=== PATIENT | male | born 1965 | race Caucasian/White ===

== ENCOUNTER → 2021-01-16 13:06 | Outpatient (BNVA) | payer MEDICAID, SELFPAY | PROVIDERS: PCP Registered Nurse; Visit Provider Internal Medicine Cardiovascular Disease | DX: I25.10 Atherosclerotic heart disease of native coronary artery without angina pectoris (principal); R07.89 Other chest pain; R00.2 Palpitations | CPT/HCPCS: 93005; 99212 ==

== ENCOUNTER 2021-03-29 18:41 | Emergency (ER) | payer MEDICAID, SELFPAY ==
--- NOTE | ~2021-03-29 | XR_ITS ---
EXAMINATION: XR CHEST CLINICAL INFORMATION: Chest pain COMPARISON: Chest x-ray 04/21/2020 TECHNIQUE: Frontal view of the chest was obtained. 7:45 PM FINDINGS: No significant abnormality is noted involving the heart, lungs, mediastinum, bony thorax or soft tissues. XR/XR chest 1V IMPRESSION: Unremarkable examination.
--- NOTE | ~2021-03-29 | CT_ITS ---
EXAMINATION: CT ABDOMEN AND PELVIS WITHOUT CONTRAST CLINICAL INFORMATION: Left flank pain. Nausea and vomiting. COMPARISON: 07/15/2015 TECHNIQUE: Multidetector volumetric imaging was performed from the superior aspect of the liver through the pubic symphysis. Sagittal and coronal reformatted images were obtained on the technologist's workstation. This CT examination was performed using dose optimization techniques as appropriate, variously including the following: *Automated exposure control *Adjustment of mA and/or kV according to patient size (this includes techniques or standardized protocols for targeted exams where dose is matched to indication/reason for exam; i.e. extremities or head) *Use of iterative reconstruction technique DLP: 484 mGy-cm FINDINGS: LUNG BASES: Calcified granulomata are present at the lung bases which are otherwise clear. LIVER, GALLBLADDER, AND BILIARY TREE: The liver is normal in size, shape, and attenuation. No focal hepatic lesion or biliary ductal dilatation is present. The gallbladder is unremarkable with no evidence of radiopaque gallstones, gallbladder wall thickening, or obvious pericholecystic inflammatory changes. PANCREAS: Unremarkable. SPLEEN: Unremarkable. ADRENAL GLANDS: Unremarkable. KIDNEYS AND URETERS: The kidneys are normal in size, shape, and attenuation. No hydronephrosis or hydroureter. 0.3 cm right lower pole renal calculus is 9.5 cm from the posterior axillary line. 0.3 cm left lower pole renal calculus is 8.5 cm from the posterior axillary line. There is also a 0.2 cm left midpole calculus. BLADDER: Decompressed with no gross abnormality. GASTROINTESTINAL TRACT: The stomach is unremarkable. Normal caliber small bowel. There is no obstruction. Normal appendix. Scattered colonic diverticulosis without diverticulitis. No colonic wall thickening or inflammatory change. No free air or free fluid. ABDOMINAL WALL: Small fat-containing left inguinal hernia. LYMPH NODES: Normal. VASCULAR: Normal caliber aorta with mild atherosclerotic calcification. Retroaortic left renal vein. PELVIC VISCERA: Enlarged prostate measuring 5.3 cm transverse. OSSEOUS STRUCTURES: No acute or suspicious osseous abnormality. Transitional anatomy of the lumbosacral junction. Mild degenerative changes in the spine. CT/CT abdomen pelvis wo con IMPRESSION: No acute findings of the abdomen or pelvis. No hydronephrosis. Nonobstructing renal calculi are noted. No inflammatory changes.
--- NOTE | 2021-03-29 18:46 | ECG_ITS ---
Test Reason : CHEST PAIN Blood Pressure : / mmHG Vent. Rate : 075 BPM Atrial Rate : 075 BPM P-R Int : 138 ms QRS Dur : 084 ms QT Int : 414 ms P-R-T Axes : 036 025 027 degrees QTc Int : 462 ms Normal sinus rhythm with sinus arrhythmia Minimal voltage criteria for LVH, may be normal variant Inferior infarct (cited on or before 21-APR-2020) Abnormal ECG When compared with ECG of 21-APR-2020 13:31, Normal sinus rhythm has replaced Atrial fibrillation ST no longer elevated in Inferior leads Referred By: Generic ED Physician Electronically Signed By:LUIS ANTONIO VAUGHN MD
[2021-03-29 19:12] VITALS: BP 140/74; PULSE 60; RESP 16; TEMP 36.7; O2SAT 98; BMI 25.2
[2021-03-29 19:35] LABS: MANUAL DIFF FLAG NO
[2021-03-29 19:36] LABS: Basophils Percent Auto 0.5 % (0-2); Eosinophils Absolute Auto 0.1 X10*3/uL (0.0-0.4); Eosinophils Percent Auto 1.5 % (0-4); Hematocrit 45.5 % (42-52); Hemoglobin 15.1 g/dl (14.0-18.0); Imm Gran Abs Auto 0.02 X10*3/uL (0.00-0.03); Imm Gran Pct Auto 0.2 % (0.0-0.4); Lymphocytes Percent Auto 24.1 % (20-40); Mean Corpuscular HGB Conc 33.2 g/dl (31.0-36.0); Mean Corpuscular Hemoglobin 28.2 pg (27.0-33.0); Mean Corpuscular Volume 84.9 fL (80-98); Mean Platelet Volume 10.4 fL (9.4-12.4); Monocytes Absolute Auto 0.9 X10*3/uL (0.1-1.2); Monocytes Percent Auto 11.1 % (2-11); Neutrophils Absolute Auto 5.1 X10*3/uL (2.0-8.3); Neutrophils Percent Auto 62.6 % (45-73); Platelet Count 259 X10*3/uL (160-400); Red Blood Count 5.36 X10*6/uL (4.60-5.80); Red Cell Distribution Width 14.6 % (11.0-16.0); White Blood Count 8.2 X10*3/uL (4.8-10.8)
[2021-03-29 20:00] LABS: Anion Gap 15 (12-20); Blood Urea Nitrogen 8 mg/dL (9-16); Calcium 9.8 mg/dL (8.4-10.2); Carbon Dioxide 24 mmol/L (22-29); Chloride 102 mmol/L (96-108); Creatinine Clr Calc Pharmacy 105.8; Estimated Glomerular Filt Rate > 60; Glucose Random 100 mg/dL (60-115); Potassium 3.5 mmol/L (3.3-5.1); Sodium 137 mmol/L (135-145)
[2021-03-29 20:10] LABS: Troponin-I High Sensitivity 9.9 ng/L (<3.5-35.0)
--- NOTE | 2021-03-30 00:09 | ED.ABDPAIN ---
HPI - Abdominal Pain General Chief Complaint: Abdominal Pain <MERE Vogt Last Filed: 03/30/21 01:46> Stated Complaint: cp <MERE Vogt Last Filed: 03/30/21 01:46> Time Seen by Provider: 03/29/21 23:48 <MERE Vogt Last Filed: 03/30/21 01:46> Source: patient and family <MERE Vogt Last Filed: 03/30/21 01:46> Mode of arrival: ambulatory <MERE Vogt Last Filed: 03/30/21 01:46> Limitations: language barrier <MERE Vogt Last Filed: 03/30/21 01:46> History of Present Illness HPI narrative: 56 y/o male with history of schizoaffective disorder, developmental delay, polysubstance abuse, HTN, HLD, hx STEMI in 04/2020 s/p PCI with residual atypical chest pain who presents to the ER from home complaining of LUQ & left flank pain as well as nausea & vomiting for the last 4 days. He also reports painful urination and blood in his urine but he cannot recall when this started. He also has right sided chest pain at times, worse with movement. No SOB, fevers, diarrhea. He admits to chills and increased anxiety. He goes to a day program for his disability and his mom reports he came home with the above complaints. No sick contacts at the facility. He is a vague historian, staff nurse midwife services used. <MERE Vogt Last Filed: 03/30/21 01:46> MD elicited complaint: abdominal pain and flank pain <MERE Vogt Last Filed: 03/30/21 01:46> Onset (ago): day(s) (4) <MERE Vogt Last Filed: 03/30/21 01:46> Pain Consistency: constant <MERE Vogt Last Filed: 03/30/21 01:46> Location: LUQ and L flank <MERE Vogt Last Filed: 03/30/21 01:46> Severity: moderate <MERE Vogt Last Filed: 03/30/21 01:46> Quality: stabbing <MERE Vogt Last Filed: 03/30/21 01:46> Radiation: none <MERE Vogt Last Filed: 03/30/21 01:46> Migration to: no migration <MERE Vogt Last Filed: 03/30/21 01:46> Exacerbating factors: eating <MERE Vogt Last Filed: 03/30/21 01:46> Relieving factors: nothing <MERE Vogt Last Filed: 03/30/21 01:46> Associated symptoms: nausea, vomiting, chills and dysuria <EMRE Vogt Last Filed: 03/30/21 01:46> Related Data Home Medications: Home Medications Medication Instructions Recorded Confirmed albuterol sulfate 90 mcg/actuation 2 puff INHALATION Q6H PRN 01/16/21 01/16/21 aerosol inhaler benztropine 2 mg tablet 2 mg PO DAILY 01/16/21 01/16/21 lorazepam 0.5 mg tablet 0.5 mg PO DAILY PRN 01/16/21 01/16/21 mirtazapine 30 mg tablet 30 mg PO DAILY 01/16/21 01/16/21 propranolol 10 mg tablet 10 mg PO BID 01/16/21 01/16/21 quetiapine 50 mg tablet 50 mg PO DAILY 01/16/21 01/16/21 risperidone 0.5 mg tablet 0.5 mg PO BID 01/16/21 01/16/21 risperidone 3 mg tablet 3 mg PO BEDTIME 01/16/21 01/16/21 trazodone 100 mg tablet 100 mg PO DAILY 01/16/21 01/16/21 Previous Rx's Medication Instructions Recorded ezetimibe 10 mg tablet 10 mg PO DAILY #90 tab 03/03/21 isosorbide mononitrate 30 mg 30 mg PO DAILY #90 tab 03/03/21 tablet,extended release 24 hr ondansetron 4 mg PO Q6H PRN #7 tab 03/30/21 <MERE Vogt Last Filed: 03/30/21 01:46> Allergies/Adverse Reactions: Allergies Allergy/AdvReac Type Severity Reaction Status Date / Time acetaminophen Allergy Unknown PANADOL = Unverified 03/29/21 19:20 ACETAMINOPHEN SHELLFISH Allergy Mild PATIENT Uncoded 03/29/21 19:20 REPORTS BURNING SENSATION THROUGHOUT OPIATES Allergy Unknown BECAME Uncoded 03/29/21 19:20 ADDICTED PANADOL Allergy Unknown UNKNOWN Uncoded 03/29/21 19:20 <MERE Vogt - Last Filed: 03/30/21 01:46> Review of Systems Review of Systems Constitutional: No Fever, + Chills ENT/Mouth: No sore throat, No Rhinorrhea, No Swallowing Difficulty Cardiovascular: + Chest Pain, No SOB, No Orthopnea, No Edema Respiratory: No Cough, No Sputum, No Wheezing, No dyspnea Gastrointestinal: + Nausea, + Vomiting, No Diarrhea, + abdominal Pain, No Hematochezia, No Melena Genitourinary: + Dysuria, + Urinary Frequency, + Hematuria Musculoskeletal: No joint pain, No Myalgias Skin: No Skin Lesions, No rash Neuro: No Weakness, No Numbness, No Dizziness, No Headache Psych: + Anxiety/Panic, No Depression Heme/Lymph: No Bruising, No Lymphadenopathy Endocrine: No Polyuria, No Polydipsia <MERE Vogt - Last Filed: 03/30/21 01:46> Physical Exam Vital Signs: Vital Signs: Last Vital Signs Temp 98.1 F 03/29/21 19:12 Pulse 84 03/30/21 02:00 Resp 18 03/30/21 02:00 BP 140/74 H 03/29/21 19:12 Pulse Ox 100 03/30/21 02:00 Body Mass Index 25.2 Appearance: Alert. Oriented. Pacing in the room. Eyes: Pupils equal, round and reactive to light. ENT: Pharynx normal. Neck: Normal inspection. Neck supple. CVS: Normal heart rate and rhythm. Pulses normal. Mild right sided chest wall tenderness. Respiratory: No respiratory distress. Breath sounds normal. Abdomen: Soft with mild LUQ tenderness, no CVA tenderness, no rebound or guarding. +BS x4 Skin: Skin warm and dry. Normal skin color. Normal skin turgor. No rashes. Extremities: No lower extremity edema. Neuro: Oriented X 2. Ambulates with steady gait, non-focal. <MERE Vogt - Last Filed: 03/30/21 01:46> Vital Signs: Last Vital Signs Temp 98.1 F 03/29/21 19:12 Pulse 84 03/30/21 02:00 Resp 18 03/30/21 02:00 BP 140/74 H 03/29/21 19:12 Pulse Ox 100 03/30/21 02:00 Body Mass Index 25.2 <Amber Marques MD - Last Filed: 03/30/21 02:59> Course Course Course Narrative: 56 y/o male presenting with LUQ/left flank pain along with N/V and urinary symptoms. He is a vague historian. He appears to be in no distress and is vitally stable on arrival. Exam reveals mild LUQ pain without rebound or guarding. EKG unchanged and troponin 9.9. Repeat pending. Doubt cardiac etiology. Will check CT scan and UA. Concern for possible UTI. <MERE Vogt - Last Filed: 03/30/21 01:46> I received sign-out from MERE Salazar. Urinalysis within normal limits. CT scan shows no acute findings. Patient will be ready for discharge. <Amber Marques MD - Last Filed: 03/30/21 02:59> Reevaluation(s) Reevaluation #1: Troponin increased slightly but not by delta 50% making cardiac etiology very unlikely. CT scan is unremarkable. Reassessed patient and asked for urine sample, he was found sleeping comfortably and SL zofran and GI cocktail. UA still pending. <MERE Vogt - Last Filed: 03/30/21 01:46> MDM - Abdominal Pain Lab Data Result diagrams: : 03/29/21 19:30 03/29/21 19:30 <MERE Vogt - Last Filed: 03/30/21 01:46> Labs: Lab Results 03/29/21 03/29/21 03/29/21 Range/Units 19:30 19:30 19:30 WBC 8.2 (4.8-10.8) X10*3/uL RBC 5.36 (4.60-5.80) X10*6/uL Hgb 15.1 (14.0-18.0) g/dl Hct 45.5 (42-52) % MCV 84.9 (80-98) fL MCH 28.2 (27.0-33.0) pg MCHC 33.2 (31.0-36.0) g/dl RDW 14.6 (11.0-16.0) % Plt Count 259 (160-400) X10*3/uL MPV 10.4 (9.4-12.4) fL Immature Gran % (Auto) 0.2 (0.0-0.4) % Neut % (Auto) 62.6 (45-73) % Lymph % (Auto) 24.1 (20-40) % [place] % (Auto) 11.1 H (2-11) % Eos % (Auto) 1.5 (0-4) % Baso % (Auto) 0.5 (0-2) % Lymph # (Auto) 2.0 (1.2-4.9) X10*3/uL [place] # (Auto) 0.9 (0.1-1.2) X10*3/uL Eos # (Auto) 0.1 (0.0-0.4) X10*3/uL Baso # (Auto) 0.0 (0.0-0.2) X10*3/uL Abs Immat Gran (auto) 0.02 (0.00-0.03) X10*3/uL Absolute Neuts (auto) 5.1 (2.0-8.3) X10*3/uL Absolute Nucleated RBC 0.000 (0.0-0.012) X10*3/uL Nucleated RBC % (auto) 0.0 (0.0-0.2) /100WBC Hold Blue Top SEE NOTE Sodium 137 (135-145) mmol/L Potassium 3.5 (3.3-5.1) mmol/L Chloride 102 (96-108) mmol/L Carbon Dioxide 24 (22-29) mmol/L Anion Gap 15 (12-20) BUN 8 L (9-16) mg/dL Creatinine 0.72 (0.5-1.4) mg/dL Estim Creat Clear Calc 105.8 Estimated GFR > 60 Random Glucose 100 (60-115) mg/dL Calcium 9.8 (8.4-10.2) mg/dL Troponin I High Sens (<3.5-35.0) ng/L Urine Color Urine Appearance Urine pH (5.0-8.0) Ur Specific [place] (1.005-1.025) Urine Protein (NEG-TRACE) MG/DL Urine Glucose (UA) (NEG) MG/DL Urine Ketones (NEG) MG/DL Urine Blood (NEG) Urine Nitrite (NEG) Ur Leukocyte Esterase (NEG) Urine RBC (0) /HPF Urine WBC (0-4) /HPF Ur Squamous Epith Cells /LPF Calcium Oxalate Crystal /LPF Urine Bacteria /LPF Urine Mucus /LPF COVID-19 (VITO) (Negative) COVID-19 Clin Com 03/29/21 03/30/21 03/30/21 Range/Units 19:30 00:18 00:18 WBC (4.8-10.8) X10*3/uL RBC (4.60-5.80) X10*6/uL Hgb (14.0-18.0) g/dl Hct (42-52) % MCV (80-98) fL MCH (27.0-33.0) pg MCHC (31.0-36.0) g/dl RDW (11.0-16.0) % Plt Count (160-400) X10*3/uL MPV (9.4-12.4) fL Immature Gran % (Auto) (0.0-0.4) % Neut % (Auto) (45-73) % Lymph % (Auto) (20-40) % [place] % (Auto) (2-11) % Eos % (Auto) (0-4) % Baso % (Auto) (0-2) % Lymph # (Auto) (1.2-4.9) X10*3/uL [place] # (Auto) (0.1-1.2) X10*3/uL Eos # (Auto) (0.0-0.4) X10*3/uL Baso # (Auto) (0.0-0.2) X10*3/uL Abs Immat Gran (auto) (0.00-0.03) X10*3/uL Absolute Neuts (auto) (2.0-8.3) X10*3/uL Absolute Nucleated RBC (0.0-0.012) X10*3/uL Nucleated RBC % (auto) (0.0-0.2) /100WBC Hold Blue Top Sodium (135-145) mmol/L Potassium (3.3-5.1) mmol/L Chloride (96-108) mmol/L Carbon Dioxide (22-29) mmol/L Anion Gap (12-20) BUN (9-16) mg/dL Creatinine (0.5-1.4) mg/dL Estim Creat Clear Calc Estimated GFR Random Glucose (60-115) mg/dL Calcium (8.4-10.2) mg/dL Troponin I High Sens 9.9 13.7 (<3.5-35.0) ng/L Urine Color Urine Appearance Urine pH (5.0-8.0) Ur Specific [place] (1.005-1.025) Urine Protein (NEG-TRACE) MG/DL Urine Glucose (UA) (NEG) MG/DL Urine Ketones (NEG) MG/DL Urine Blood (NEG) Urine Nitrite (NEG) Ur Leukocyte Esterase (NEG) Urine RBC (0) /HPF Urine WBC (0-4) /HPF Ur Squamous Epith Cells /LPF Calcium Oxalate Crystal /LPF Urine Bacteria /LPF Urine Mucus /LPF COVID-19 (VITO) Negative (Negative) COVID-19 Clin Com See Note 03/30/21 Range/Units 01:49 WBC (4.8-10.8) X10*3/uL RBC (4.60-5.80) X10*6/uL Hgb (14.0-18.0) g/dl Hct (42-52) % MCV (80-98) fL MCH (27.0-33.0) pg MCHC (31.0-36.0) g/dl RDW (11.0-16.0) % Plt Count (160-400) X10*3/uL MPV (9.4-12.4) fL Immature Gran % (Auto) (0.0-0.4) % Neut % (Auto) (45-73) % Lymph % (Auto) (20-40) % [place] % (Auto) (2-11) % Eos % (Auto) (0-4) % Baso % (Auto) (0-2) % Lymph # (Auto) (1.2-4.9) X10*3/uL [place] # (Auto) (0.1-1.2) X10*3/uL Eos # (Auto) (0.0-0.4) X10*3/uL Baso # (Auto) (0.0-0.2) X10*3/uL Abs Immat Gran (auto) (0.00-0.03) X10*3/uL Absolute Neuts (auto) (2.0-8.3) X10*3/uL Absolute Nucleated RBC (0.0-0.012) X10*3/uL Nucleated RBC % (auto) (0.0-0.2) /100WBC Hold Blue Top Sodium (135-145) mmol/L Potassium (3.3-5.1) mmol/L Chloride (96-108) mmol/L Carbon Dioxide (22-29) mmol/L Anion Gap (12-20) BUN (9-16) mg/dL Creatinine (0.5-1.4) mg/dL Estim Creat Clear Calc Estimated GFR Random Glucose (60-115) mg/dL Calcium (8.4-10.2) mg/dL Troponin I High Sens (<3.5-35.0) ng/L Urine Color DARK YELLOW Urine Appearance CLEAR Urine pH 6.5 (5.0-8.0) Ur Specific [place] 1.025 (1.005-1.025) Urine Protein NEG (NEG-TRACE) MG/DL Urine Glucose (UA) NEG (NEG) MG/DL Urine Ketones 15 (NEG) MG/DL Urine Blood TRACE (NEG) Urine Nitrite NEG (NEG) Ur Leukocyte Esterase NEG (NEG) Urine RBC 0-2 (0) /HPF Urine WBC 0-2 (0-4) /HPF Ur Squamous Epith Cells TRACE /LPF Calcium Oxalate Crystal 1+ /LPF Urine Bacteria NONE /LPF Urine Mucus 3+ /LPF COVID-19 (VITO) (Negative) COVID-19 Clin Com <MERE Vogt - Last Filed: 03/30/21 01:46> Lab Results 03/29/21 03/29/21 03/29/21 Range/Units 19:30 19:30 19:30 WBC 8.2 (4.8-10.8) X10*3/uL RBC 5.36 (4.60-5.80) X10*6/uL Hgb 15.1 (14.0-18.0) g/dl Hct 45.5 (42-52) % MCV 84.9 (80-98) fL MCH 28.2 (27.0-33.0) pg MCHC 33.2 (31.0-36.0) g/dl RDW 14.6 (11.0-16.0) % Plt Count 259 (160-400) X10*3/uL MPV 10.4 (9.4-12.4) fL Immature Gran % (Auto) 0.2 (0.0-0.4) % Neut % (Auto) 62.6 (45-73) % Lymph % (Auto) 24.1 (20-40) % [place] % (Auto) 11.1 H (2-11) % Eos % (Auto) 1.5 (0-4) % Baso % (Auto) 0.5 (0-2) % Lymph # (Auto) 2.0 (1.2-4.9) X10*3/uL [place] # (Auto) 0.9 (0.1-1.2) X10*3/uL Eos # (Auto) 0.1 (0.0-0.4) X10*3/uL Baso # (Auto) 0.0 (0.0-0.2) X10*3/uL Abs Immat Gran (auto) 0.02 (0.00-0.03) X10*3/uL Absolute Neuts (auto) 5.1 (2.0-8.3) X10*3/uL Absolute Nucleated RBC 0.000 (0.0-0.012) X10*3/uL Nucleated RBC % (auto) 0.0 (0.0-0.2) /100WBC Hold Blue Top SEE NOTE Sodium 137 (135-145) mmol/L Potassium 3.5 (3.3-5.1) mmol/L Chloride 102 (96-108) mmol/L Carbon Dioxide 24 (22-29) mmol/L Anion Gap 15 (12-20) BUN 8 L (9-16) mg/dL Creatinine 0.72 (0.5-1.4) mg/dL Estim Creat Clear Calc 105.8 Estimated GFR > 60 Random Glucose 100 (60-115) mg/dL Calcium 9.8 (8.4-10.2) mg/dL Troponin I High Sens (<3.5-35.0) ng/L Urine Color Urine Appearance Urine pH (5.0-8.0) Ur Specific [place] (1.005-1.025) Urine Protein (NEG-TRACE) MG/DL Urine Glucose (UA) (NEG) MG/DL Urine Ketones (NEG) MG/DL Urine Blood (NEG) Urine Nitrite (NEG) Ur Leukocyte Esterase (NEG) Urine RBC (0) /HPF Urine WBC (0-4) /HPF Ur Squamous Epith Cells /LPF Calcium Oxalate Crystal /LPF Urine Bacteria /LPF Urine Mucus /LPF COVID-19 (VITO) (Negative) COVID-19 Clin Com 03/29/21 03/30/21 03/30/21 Range/Units 19:30 00:18 00:18 WBC (4.8-10.8) X10*3/uL RBC (4.60-5.80) X10*6/uL Hgb (14.0-18.0) g/dl Hct (42-52) % MCV (80-98) fL MCH (27.0-33.0) pg MCHC (31.0-36.0) g/dl RDW (11.0-16.0) % Plt Count (160-400) X10*3/uL MPV (9.4-12.4) fL Immature Gran % (Auto) (0.0-0.4) % Neut % (Auto) (45-73) % Lymph % (Auto) (20-40) % [place] % (Auto) (2-11) % Eos % (Auto) (0-4) % Baso % (Auto) (0-2) % Lymph # (Auto) (1.2-4.9) X10*3/uL [place] # (Auto) (0.1-1.2) X10*3/uL Eos # (Auto) (0.0-0.4) X10*3/uL Baso # (Auto) (0.0-0.2) X10*3/uL Abs Immat Gran (auto) (0.00-0.03) X10*3/uL Absolute Neuts (auto) (2.0-8.3) X10*3/uL Absolute Nucleated RBC (0.0-0.012) X10*3/uL Nucleated RBC % (auto) (0.0-0.2) /100WBC Hold Blue Top Sodium (135-145) mmol/L Potassium (3.3-5.1) mmol/L Chloride (96-108) mmol/L Carbon Dioxide (22-29) mmol/L Anion Gap (12-20) BUN (9-16) mg/dL Creatinine (0.5-1.4) mg/dL Estim Creat Clear Calc Estimated GFR Random Glucose (60-115) mg/dL Calcium (8.4-10.2) mg/dL Troponin I High Sens 9.9 13.7 (<3.5-35.0) ng/L Urine Color Urine Appearance Urine pH (5.0-8.0) Ur Specific [place] (1.005-1.025) Urine Protein (NEG-TRACE) MG/DL Urine Glucose (UA) (NEG) MG/DL Urine Ketones (NEG) MG/DL Urine Blood (NEG) Urine Nitrite (NEG) Ur Leukocyte Esterase (NEG) Urine RBC (0) /HPF Urine WBC (0-4) /HPF Ur Squamous Epith Cells /LPF Calcium Oxalate Crystal /LPF Urine Bacteria /LPF Urine Mucus /LPF COVID-19 (VITO) Negative (Negative) COVID-19 Clin Com See Note 03/30/21 Range/Units 01:49 WBC (4.8-10.8) X10*3/uL RBC (4.60-5.80) X10*6/uL Hgb (14.0-18.0) g/dl Hct (42-52) % MCV (80-98) fL MCH (27.0-33.0) pg MCHC (31.0-36.0) g/dl RDW (11.0-16.0) % Plt Count (160-400) X10*3/uL MPV (9.4-12.4) fL Immature Gran % (Auto) (0.0-0.4) % Neut % (Auto) (45-73) % Lymph % (Auto) (20-40) % [place] % (Auto) (2-11) % Eos % (Auto) (0-4) % Baso % (Auto) (0-2) % Lymph # (Auto) (1.2-4.9) X10*3/uL [place] # (Auto) (0.1-1.2) X10*3/uL Eos # (Auto) (0.0-0.4) X10*3/uL Baso # (Auto) (0.0-0.2) X10*3/uL Abs Immat Gran (auto) (0.00-0.03) X10*3/uL Absolute Neuts (auto) (2.0-8.3) X10*3/uL Absolute Nucleated RBC (0.0-0.012) X10*3/uL Nucleated RBC % (auto) (0.0-0.2) /100WBC Hold Blue Top Sodium (135-145) mmol/L Potassium (3.3-5.1) mmol/L Chloride (96-108) mmol/L Carbon Dioxide (22-29) mmol/L Anion Gap (12-20) BUN (9-16) mg/dL Creatinine (0.5-1.4) mg/dL Estim Creat Clear Calc Estimated GFR Random Glucose (60-115) mg/dL Calcium (8.4-10.2) mg/dL Troponin I High Sens (<3.5-35.0) ng/L Urine Color DARK YELLOW Urine Appearance CLEAR Urine pH 6.5 (5.0-8.0) Ur Specific [place] 1.025 (1.005-1.025) Urine Protein NEG (NEG-TRACE) MG/DL Urine Glucose (UA) NEG (NEG) MG/DL Urine Ketones 15 (NEG) MG/DL Urine Blood TRACE (NEG) Urine Nitrite NEG (NEG) Ur Leukocyte Esterase NEG (NEG) Urine RBC 0-2 (0) /HPF Urine WBC 0-2 (0-4) /HPF Ur Squamous Epith Cells TRACE /LPF Calcium Oxalate Crystal 1+ /LPF Urine Bacteria NONE /LPF Urine Mucus 3+ /LPF COVID-19 (VITO) (Negative) COVID-19 Clin Com <Amber Marques MD - Last Filed: 03/30/21 02:59> Discharge Plan Discharge Clinical Impression: Abdominal pain, Nausea & vomiting <MERE Vogt - Last Filed: 03/30/21 01:46> Patient Disposition: Home, Self-Care <MERE Vogt - Last Filed: 03/30/21 01:46> Instructions: Acute Nausea and Vomiting (ED), Abdominal Pain (ED) <MERE Vogt - Last Filed: 03/30/21 01:46> Additional Instructions: Your lab workup was unremarkable. Your EKG was unchanged. Your CT scan was normal. Your urine was negative Take the prescribed mediation as needed for nausea. Stick to a bland diet while you are not feeling well. Follow up with your doctor this week. If you have any worsening symptoms come back to the ER for further evaluation. <MERE Vogt - Last Filed: 03/30/21 01:46> Prescriptions: New ondansetron 4 mg tablet,disintegrating 4 mg PO Q6H PRN (Reason: nausea and vomiting) Qty: 7 RF: 0 No Action ezetimibe [Zetia] 10 mg tablet 10 mg PO DAILY Qty: 90 RF: 1 isosorbide mononitrate 30 mg tablet extended release 24 hr 30 mg PO DAILY Qty: 90 RF: 1 benztropine 2 mg tablet 2 mg PO DAILY RF: 0 lorazepam 0.5 mg tablet 0.5 mg PO DAILY PRNRF: 0 mirtazapine 30 mg tablet 30 mg PO DAILY RF: 0 risperidone 0.5 mg tablet 0.5 mg PO BID RF: 0 risperidone 3 mg tablet 3 mg PO BEDTIME RF: 0 trazodone 100 mg tablet 100 mg PO DAILY RF: 0 quetiapine 50 mg tablet 50 mg PO DAILY RF: 0 propranolol 10 mg tablet 10 mg PO BID RF: 0 albuterol sulfate [ProAir HFA] 90 mcg/actuation HFA aerosol inhaler 2 puff inhalation Q6H PRNRF: 0 <MERE Vogt - Last Filed: 03/30/21 01:46> [facility] Past Medical History Attestation statement: The following information was validated with the patient. <MERE Vogt - Last Filed: 03/30/21 01:46> Medical History: Medical History (Updated 03/30/21 @ 02:11 by Amber Marques MD) Hypertension Schizoaffective disorder <MERE Vogt Last Filed: 03/30/21 01:46> Surgical History: Surgical History (Updated 01/16/21 @ 13:26 by LALY Mckeon) History of hernia repair <MERE Vogt - Last Filed: 03/30/21 01:46> Family History Family History: Family History (Updated 01/16/21 @ 13:27 by LALY Mckeon) Father Edema Mother Developmental delay <MERE Vogt - Last Filed: 03/30/21 01:46> Social History Social History: Social History (Updated 01/16/21 @ 13:26 by LALY Mckeon) Smoking Status: Current every day smoker Cigarettes Per Day: 2 Advance Directives: No Advance Directives Information Provided: No <MERE Vogt - Last Filed: 03/30/21 01:46>
[2021-03-30 00:40] LABS: COVID-19 Test Negative (Negative); IDNOW Serial# 9DD0AD1C
[2021-03-30] MEDS: Omeprazole 40 MG CAPSULE.DR PO (00:46)
[2021-03-30] MEDS: Lidocaine HCl Viscous 2 % 15 ML SOLUTION MUCOUS MEM (00:46)
[2021-03-30] MEDS: Magnesium Hydrox/Alum Hydrox 30 ML ORAL.SUSP PO (00:47)
[2021-03-30 01:01] LABS: Troponin-I High Sensitivity 13.7 ng/L (<3.5-35.0)
[2021-03-30 02:00] VITALS: PULSE 84; RESP 18; O2SAT 100
[2021-03-30 02:15] LABS: Appearance Urine CLEAR; Color Urine DARK YELLOW; Glucose Urine UA NEG (NEG); Leukocyte Esterase Urine NEG (NEG); Nitrite Urine NEG (NEG); PH 6.5 (5.0-8.0); Specific Gravity - Urine 1.025 (1.005-1.025); Urine Blood TRACE (NEG); Urine Ketones 15 MG/DL (NEG); Urine Protein NEG (NEG-TRACE)
[2021-03-30 02:34] LABS: RBC Urine 0-2 /HPF (0); Squamous Epithelial Cell Urine TRACE /LPF; WBC Urine 0-2 /HPF (0-4)
[2021-03-30 02:35] LABS: Calcium Oxalate Crystals Urine 1+ /LPF; Mucus Urine 3+ /LPF
== END 2021-03-30 03:18 | disposition home or self-care (01) ==
PROVIDERS: Physician Assistant; Emergency Provider Emergency Medicine
DX: R10.12 Left upper quadrant pain (principal); R07.9 Chest pain, unspecified; R11.2 Nausea with vomiting, unspecified; Z20.822 Contact with and (suspected) exposure to COVID-19; Z79.899 Other long term (current) drug therapy
CPT/HCPCS: 36415; 71045; 74176; 80048; 81001; 84484; 85025; 87635; 93005; 99284

== ENCOUNTER 2021-06-11 14:54 | Emergency (ER) | payer MEDICAID, SELFPAY ==
--- NOTE | 2021-06-11 | ECG_ITS ---
Test Reason : ALTERED MENTAL STAT Blood Pressure : / mmHG Vent. 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
--- NOTE | 2021-06-11 | ECG_ITS ---
Test Reason : TACHYCARDIA Blood Pressure : / mmHG Vent. 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
[2021-06-11 15:09] VITALS: BP 152/93; PULSE 140; RESP 18; TEMP 36.7; O2SAT 98; BMI 29.2
--- NOTE | 2021-06-11 15:25 | PC.NURSE ---
PT CHANGING OVER INTO HOSPITAL CLOTHING
--- NOTE | 2021-06-11 15:52 | PC.NURSE ---
PT REPORTS PO MEDS MAKE HIM NAUSEOUS- PT STATES IM INJECTION BETTER TO RELIEVE ANXIETY.
[2021-06-11] MEDS: LORazepam 2 MG/ML VIAL IM (15:58)
[2021-06-11 16:00] VITALS: PULSE 130; RESP 18
[2021-06-11 16:48] LABS: MANUAL DIFF FLAG NO
[2021-06-11 16:49] LABS: Basophils Percent Auto 0.2 % (0-2); Eosinophils Percent Auto 0.2 % (0-4); Hematocrit 42.8 % (42-52); Hemoglobin 13.8 g/dl (14.0-18.0); Imm Gran Abs Auto 0.03 X10*3/uL (0.00-0.03); Imm Gran Pct Auto 0.3 % (0.0-0.4); Lymphocytes Absolute Auto 1.1 X10*3/uL (1.2-4.9); Lymphocytes Percent Auto 11.3 % (20-40); Mean Corpuscular HGB Conc 32.2 g/dl (31.0-36.0); Mean Corpuscular Hemoglobin 25.5 pg (27.0-33.0); Mean Corpuscular Volume 79.1 fL (80-98); Mean Platelet Volume 10.4 fL (9.4-12.4); Monocytes Absolute Auto 0.7 X10*3/uL (0.1-1.2); Monocytes Percent Auto 7.3 % (2-11); Neutrophils Percent Auto 80.7 % (45-73); Platelet Count 270 X10*3/uL (160-400); Red Blood Count 5.41 X10*6/uL (4.60-5.80); Red Cell Distribution Width 15.3 % (11.0-16.0); White Blood Count 9.9 X10*3/uL (4.8-10.8)
[2021-06-11 17:09] LABS: Ethanol < 10 mg/dL
[2021-06-11 17:13] LABS: Alanine Aminotransferase 24 U/L (0-40); Albumin Level 4.7 g/dL (3.5-5.0); Alkaline Phosphatase 103 U/L (39-117); Anion Gap 14 (12-20); Aspartate Amino Transferase 26 U/L (5-37); Bilirubin Direct 0.2 mg/dL (0.0-0.5); Bilirubin Total 0.3 mg/dL (0.0-1.0); Blood Urea Nitrogen 15 mg/dL (9-16); Carbon Dioxide 26 mmol/L (22-29); Chloride 107 mmol/L (96-108); Creatinine Clr Calc Pharmacy 82.3; Estimated Glomerular Filt Rate > 60; Glucose Random 117 mg/dL (60-115); Lipase 13 U/L (8-78); Potassium 3.3 mmol/L (3.3-5.1); Sodium 144 mmol/L (135-145); Total Protein 8.4 g/dL (6.5-8.0)
[2021-06-11] MEDS: OLANZapine 10 MG TABLET PO (17:24)
[2021-06-11 17:33] LABS: Thyroid Stimulating Hormone 0.68 uIU/mL (0.32-4.0)
--- NOTE | 2021-06-11 17:43 | ED_ITS ---
HPI - Psych General Chief Complaint: Psychiatric Symptoms Stated Complaint: crisis Time Seen by Provider: 06/11/21 15:19 Source: patient Mode of arrival: ambulatory Limitations: no limitations History of Present Illness HPI Narrative: Patient presents to the ED for severe paranoia and anxiety. As per family patient has been off his psych meds and has been extremely paranoid. Family states when he is extremely paranoid and anxious his baseline is shaking of his extremities. Patient admits to being anxious and paranoid and would like to be admitted. Patient denies any suicidal or homicidal thoughts. Patient denies any chest pain or shortness of breath Related Data Home Medications Medication Instructions Recorded Confirmed aspirin 81 mg PO DAILY 06/11/21 06/11/21 atorvastatin [Lipitor] 80 mg PO BEDTIME 06/11/21 06/11/21 benztropine 1 mg PO BEDTIME 06/11/21 06/11/21 clonazepam 0.25 mg PO BID 06/11/21 06/11/21 metoprolol tartrate 25 mg PO DAILY 06/11/21 06/11/21 mirtazapine 30 mg PO BEDTIME 06/11/21 06/11/21 risperidone 0.5 mg PO DAILY 06/11/21 06/11/21 risperidone 3 mg PO BEDTIME 06/11/21 06/11/21 ticagrelor [Brilinta] 90 mg PO BID 06/11/21 06/11/21 trazodone 100 mg PO BEDTIME 06/11/21 06/11/21 Allergies Allergy/AdvReac Type Severity Reaction Status Date / Time acetaminophen Allergy Unknown PANADOL = Unverified 03/29/21 19:20 ACETAMINOPHEN SHELLFISH Allergy Mild PATIENT Uncoded 03/29/21 19:20 REPORTS BURNING SENSATION THROUGHOUT OPIATES Allergy Unknown BECAME Uncoded 03/29/21 19:20 ADDICTED PANADOL Allergy Unknown UNKNOWN Uncoded 03/29/21 19:20 Review of Systems Review of Systems: Yes all other systems are reviewed and are negative Constitutional: Constitutional: Reports as per HPI and Reports no additional constitutional complaints Eyes: Eyes: Reports as per HPI and Reports no additional eye complaints ENT: Reports system reviewed and no additional complaints, except as documented and Reports as per HPI Cardiovascular: Cardiovascular: Reports as per HPI and Reports no additional cardiovascular complaints Respiratory: Respiratory: Reports as per HPI and Reports no additional respiratory complaints Gastrointestinal: Gastrointestinal: Reports as per HPI and Reports no additional gastrointestinal complaints Genitourinary: Genitourinary: Reports no additional male genitourinary complaints and Reports as per HPI Musculoskeletal: Musculoskeletal: Reports no additional musculoskeletal complaints and Reports as per HPI Neurologic: Reports system reviewed and no additional complaints, except as documented and Reports as per HPI Psychiatric: Psychiatric: Reports no additional psychiatric complaints, Reports as per HPI, Reports anxiety and Reports paranoia [facility] Past Medical History Medical History (Updated 06/11/21 @ 18:01 by MERE Amador) Hypertension Schizoaffective disorder Surgical History (Updated 01/16/21 @ 13:26 by LALY Mckeon) History of hernia repair Family History Family History (Updated 01/16/21 @ 13:27 by LALY Mckeon) Father Edema Mother Developmental delay Social History Social History (Updated 01/16/21 @ 13:26 by LALY Mckeon) Cigarettes Per Day: 2 Advance Directives: No Advance Directives Information Provided: Yes Physical Exam Vital Signs: Vital Signs: Last Vital Signs Temp 98.0 F 06/11/21 15:09 Pulse 130 H 06/11/21 16:00 Resp 18 06/11/21 16:00 BP 152/93 H 06/11/21 15:09 Pulse Ox 98 06/11/21 15:09 Body Mass Index 29.2 Const: Other: Anxious General: cooperative, healthy appearing, comfortable, no acute distress, well developed, alert, awake and Physically active HENMT: Head: Yes normal to inspection, Yes No palpable skull fracture present, Yes normocephalic, Yes atraumatic and No abrasion Eyes: General: appearance normal, both eyes and all related structures Neck: Neck: Yes normal visual inspection and Yes full ROM Chest: Chest palpation & inspection: normal inspection of the chest and normal palpation of entire chest wall Resp: Effort & Inspection: normal respiratory effort and able to speak in complete sentences Auscultation: clear to auscultation bilaterally Cardio: Jugular venous distension: no JVD Rate: tachycardic Heart sounds: S1 normal heart sound present and S2 normal heart sound present GI: Inspection: Yes normal to inspection and No abdominal wall ecchymosis Palpation (GI): Soft to palpation, not firm, nontender, no guarding and not rig id : General: No CVA tenderness and Yes no CVA tenderness Back/Spine/Pelvis: Back: no CVA tenderness, No CVA tenderness and No back tenderness Skin: General skin exam: no rashes or lesions noted and elasticity normal Neuro: Other: Patient is severely anxious which is causing him to be extremely tremulous of extremities. Negative slurred speech. Facial droop intact. Neg ative pronator drift. Lower extremities equal strength 5+. Normal gait. Negative Romberg. [id number] and rapid hand movement intact Extrem: Other: Tremors due to severe anxiety Psych: Other: Anxiety Thought content: Paranoid delusions present Course Course Course Narrative: Patient extremely anxious and nervous. Patient requesting medication for anxiety. Initial EKG showed atrial flutter which is most likely not real due to multiple artifacts on the EKG and patient having severe tremors. Reevaluation(s) Reevaluation #1: Patient gave Ativan and Zyprexa and tremors decreased significantly. Repeat EKG shows sinus tachycardia. Due to cardiac history patient will have labs including troponin. Patient will have a crisis evaluation. Patient was willing to take Ativan and Zyprexa willingly. Most likely initial EKG of atrial flutter was not accurate. Patient denies any history of alcohol abuse. Tachycardia most likely due to tremors caused by paranoid or anxiety. Suspected alcohol withdrawal DT patient denies any history of alcohol abuse. Patient presently receiving oral fluids. IF Patient is still tachyardic will recommend IV fluids. Patient denies ever having any chest pain or heart palpitations. Patient just feel anxious. Time: 17:51 Reevaluation #2: Spoke with patient's brother Chris states patient has not been taking his medical or psych meds due to his paranoia and anxiety. Chris cell phone number is [phone]. Sign out JACKY Valdez Time: 17:59 MDM - Psych MDM Narrative Medical decision making narrative: Anxiety, paranoia Lab Data Result diagrams: 06/11/21 16:44 06/11/21 16:44 Labs: Lab Results 06/11/21 06/11/21 06/11/21 Range/Units 16:44 16:44 16:44 WBC 9.9 (4.8-10.8) X10*3/uL RBC 5.41 (4.60-5.80) X10*6/uL Hgb 13.8 L (14.0-18.0) g/dl Hct 42.8 (42-52) % MCV 79.1 L (80-98) fL MCH 25.5 L (27.0-33.0) pg MCHC 32.2 (31.0-36.0) g/dl RDW 15.3 (11.0-16.0) % Plt Count 270 (160-400) X10*3/uL MPV 10.4 (9.4-12.4) fL Immature Gran % (Auto) 0.3 (0.0-0.4) % Neut % (Auto) 80.7 H (45-73) % Lymph % (Auto) 11.3 L (20-40) % Stanly % (Auto) 7.3 (2-11) % Eos % (Auto) 0.2 (0-4) % Baso % (Auto) 0.2 (0-2) % Lymph # (Auto) 1.1 L (1.2-4.9) X10*3/uL Stanly # (Auto) 0.7 (0.1-1.2) X10*3/uL Eos # (Auto) 0.0 (0.0-0.4) X10*3/uL Baso # (Auto) 0.0 (0.0-0.2) X10*3/uL Abs Immat Gran (auto) 0.03 (0.00-0.03) X10*3/uL Absolute Neuts (auto) 8.0 (2.0-8.3) X10*3/uL Absolute Nucleated RBC 0.000 (0.0-0.012) X10*3/uL Nucleated RBC % (auto) 0.0 (0.0-0.2) /100WBC Sodium 144 (135-145) mmol/L Potassium 3.3 (3.3-5.1) mmol/L Chloride 107 (96-108) mmol/L Carbon Dioxide 26 (22-29) mmol/L Anion Gap 14 (12-20) BUN 15 D (9-16) mg/dL Creatinine 0.83 (0.5-1.4) mg/dL Estim Creat Clear Calc 82.3 Estimated GFR > 60 Random Glucose 117 H (60-115) mg/dL Calcium 10.0 (8.4-10.2) mg/dL Total Bilirubin 0.3 (0.0-1.0) mg/dL Direct Bilirubin 0.2 (0.0-0.5) mg/dL AST 26 (5-37) U/L ALT 24 (0-40) U/L Alkaline Phosphatase 103 (39-117) U/L Troponin I High Sens 27.0 (<3.5-35.0) ng/L Total Protein 8.4 H (6.5-8.0) g/dL Albumin 4.7 (3.5-5.0) g/dL Lipase 13 (8-78) U/L TSH 0.68 (0.32-4.0) uIU/mL Ethyl Alcohol mg/dL 06/11/21 Range/Units 16:44 WBC (4.8-10.8) X10*3/uL RBC (4.60-5.80) X10*6/uL Hgb (14.0-18.0) g/dl Hct (42-52) % MCV (80-98) fL MCH (27.0-33.0) pg MCHC (31.0-36.0) g/dl RDW (11.0-16.0) % Plt Count (160-400) X10*3/uL MPV (9.4-12.4) fL Immature Gran % (Auto) (0.0-0.4) % Neut % (Auto) (45-73) % Lymph % (Auto) (20-40) % Stanly % (Auto) (2-11) % Eos % (Auto) (0-4) % Baso % (Auto) (0-2) % Lymph # (Auto) (1.2-4.9) X10*3/uL Stanly # (Auto) (0.1-1.2) X10*3/uL Eos # (Auto) (0.0-0.4) X10*3/uL Baso # (Auto) (0.0-0.2) X10*3/uL Abs Immat Gran (auto) (0.00-0.03) X10*3/uL Absolute Neuts (auto) (2.0-8.3) X10*3/uL Absolute Nucleated RBC (0.0-0.012) X10*3/uL Nucleated RBC % (auto) (0.0-0.2) /100WBC Sodium (135-145) mmol/L Potassium (3.3-5.1) mmol/L Chloride (96-108) mmol/L Carbon Dioxide (22-29) mmol/L Anion Gap (12-20) BUN (9-16) mg/dL Creatinine (0.5-1.4) mg/dL Estim Creat Clear Calc Estimated GFR Random Glucose (60-115) mg/dL Calcium (8.4-10.2) mg/dL Total Bilirubin (0.0-1.0) mg/dL Direct Bilirubin (0.0-0.5) mg/dL AST (5-37) U/L ALT (0-40) U/L Alkaline Phosphatase (39-117) U/L Troponin I High Sens (<3.5-35.0) ng/L Total Protein (6.5-8.0) g/dL Albumin (3.5-5.0) g/dL Lipase (8-78) U/L TSH (0.32-4.0) uIU/mL Ethyl Alcohol < 10 mg/dL ECG Data Interpretation: EKG 1: Atrial flutter ( not real, plenty of artifacts due to tremors), Elva duration 74. QTC 454. EKG: after ativan. Sinus tachycardia. Ventricular rate 130. Peer interval 128. QRS 74. QTC 476 Discharge Plan Discharge Clinical Impression: Paranoid, Anxiety Prescriptions: No Action atorvastatin [Lipitor] 80 mg Tablet 80 mg PO BEDTIME RF: 0 clonazepam 0.5 mg Tablet 0.25 mg PO BID RF: 0 risperidone 3 mg Tablet 3 mg PO BEDTIME RF: 0 trazodone 100 mg Tablet 100 mg PO BEDTIME RF: 0 mirtazapine 30 mg Tablet 30 mg PO BEDTIME RF: 0 benztropine 1 mg Tablet 1 mg PO BEDTIME RF: 0 aspirin 81 mg Tablet 81 mg PO DAILY RF: 0 risperidone 0.5 mg Tablet 0.5 mg PO DAILY RF: 0 metoprolol tartrate 25 mg Tablet 25 mg PO DAILY RF: 0 Brilinta 90 mg Tablet 90 mg PO BID RF: 0
--- NOTE | 2021-06-11 19:22 | PC.NURSE ---
Pt sleeping in chair at this time in front of nursing station. Plan for repeat Troponin @ 1945. Continue to monitor.
--- NOTE | 2021-06-11 20:06 | PC.NURSE ---
Repeat Troponin obtained and sent.
[2021-06-11 20:38] LABS: Troponin-I High Sensitivity 26.6 ng/L (<3.5-35.0)
[2021-06-11 21:56] VITALS: BP 92/54; PULSE 102; RESP 20; O2SAT 96
[2021-06-12] VITALS: RESP 16
--- NOTE | 2021-06-12 | ECG_ITS ---
Test Reason : MED CLEARANCE Blood Pressure : / mmHG Vent. 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
--- NOTE | 2021-06-12 00:23 | PC.NURSE ---
Pt remains asleep in bed at this time, visible chest rise noted, RR 14/min. Continue to monitor.
[2021-06-12 02:00] VITALS: RESP 14
[2021-06-12 04:00] VITALS: RESP 16
--- NOTE | 2021-06-12 04:15 | PC.NURSE ---
Pt wakes from sleep, transferred into the pod for further treatment/care.
[2021-06-12 04:37] LABS: Glucose Urine UA NEG (NEG); Leukocyte Esterase Urine TRACE (NEG); Nitrite Urine NEG (NEG); Specific Gravity - Urine >= 1.030 (1.005-1.025); UACC Culture Trigger YES; Urine Blood TRACE (NEG); Urine Ketones 5 MG/DL (NEG); Urine Protein TRACE MG/DL (NEG-TRACE)
[2021-06-12 04:39] LABS: Appearance Urine HAZY; Color Urine YELLOW
[2021-06-12 04:44] LABS: Bacteria Urine 2+ /LPF; Mucus Urine 3+ /LPF; Squamous Epithelial Cell Urine 1+ /LPF
[2021-06-12 04:45] LABS: Calcium Oxalate Crystals Urine 2+ /LPF
[2021-06-12] MEDS: risperiDONE 3 MG TABLET PO (04:52)
[2021-06-12] MEDS: clonazePAM 1 MG TABLET PO (04:52)
--- NOTE | 2021-06-12 04:57 | PC.NURSE ---
Patient just got transferred from main ED, Lebanese speaking only, ambulatory without gait deficit, pending MAR update, N referral done via smart-sheet, called and spoke with [facility] for confirmation, confirmed receipt of referral, patient will be seen in the morning, patient keeps moaning, provider notified/ordered Resperidone 3 mg PO and Klonopin 1 mg PO/administered as ordered/pending effect, will continue to monitor.
[2021-06-12 04:58] LABS: Amphetamine Screen Urine Not Detected (Not Detect); Barbiturates, Urine Not Detected (Not Detect); Benzodiazepines Screen Urine Not Detected (Not Detect); Cannabinoid Screen Urine POSITIVE (Not Detect); Cocaine Screen Urine Not Detected (Not Detect); Opiate Screen Urine Not Detected (Not Detect); Phencyclidine Screen Urine Not Detected (Not Detect)
--- NOTE | 2021-06-12 06:56 | PC.NURSE ---
patient appears to remain asleep at present,appears in no distress
[2021-06-12 08:01] VITALS: PULSE 125; RESP 17; TEMP 36.7; O2SAT 97
[2021-06-12 11:48] VITALS: BP 92/54; PULSE 125
[2021-06-12] MEDS: Aspirin Enteric Coated 81 MG TABLET.DR PO (11:48)
[2021-06-12] MEDS: clonazePAM 0.5 MG TABLET PO (11:48)
[2021-06-12] MEDS: risperiDONE 0.5 MG TABLET PO (11:48)
[2021-06-12] MEDS: Metoprolol Succinate ER 25 MG TAB.ER.24H PO (11:48)
--- NOTE | 2021-06-12 15:20 | MHC.CARE ---
Patient is a 53 year-old single, Lao speaking man who was brought to the ED by ambulance from home called by his family due to patient has been increasingly anxious and paranoid. By report, this has been going on for about two weeks, suspected to not be taking medication. CARE Team attempted to interview patient with vice president medical affairs, he was unable to engage or provide any information. When asked why he came to the hospital, patient said, ?for my nerves.?He repeated multiple times, ?How long have I been here and when can I go home?? He was crying, begging to see his mother. Call to patient?s brother ([phone]) via phone diplomatic interpreter/translator, he reported that patient has not been acting himself and that usually happens when he is not taking medication. Stated that patient has been worried that the police or fire department will be coming to take him away and that the electricity will be shut off. He has not done anything dangerous and has been tending to his ADLS. Brother of patient said that patient lives with his mother, he visits daily to clean and cook, get them to appointments. Patient and his mother usually go to the [facility] together each day and have a routine. He would like to have patient return home if he agrees to take medication, believes he will recover quickly if he does. Patient?s brother said he is willing to take over giving patient his medication daily?currently he just reminds him. Call when patient is being discharged and he will come pick him up. Call to [facility] to gather information about patient?s providers, they have not seen him since 2018 but did offer that he has DDS services. Call to DDS clinician, Padmaja ([phone]) she last saw patient a few months ago so does not have current information but said that being hospitalized is distressing for him very close to his mother and does not like to be away from her, last time was several years ago. Call [facility] patient[phone] Patient has been attending appointments, was last there 06/08/21 Spoke to patient with vice president medical affairs to discuss discharge plan, he agreed to take his medication as prescribed. Called brother through phone diplomatic interpreter/translator services, advised patient to be discharged at 3:30. ED provider, MERE Wall and career technical supervisor EZE Rockwell consulted and in agreement with plan of care.
== END 2021-06-12 15:57 | disposition home or self-care (01) ==
PROVIDERS: Physician Assistant; Emergency Provider Emergency Medicine; PCP Registered Nurse
DX: F41.9 Anxiety disorder, unspecified (principal); F60.0 Paranoid personality disorder; R00.0 Tachycardia, unspecified; R25.1 Tremor, unspecified; F25.9 Schizoaffective disorder, unspecified; I10 Essential (primary) hypertension; F17.210 Nicotine dependence, cigarettes, uncomplicated; F12.90 Cannabis use, unspecified, uncomplicated; Z79.899 Other long term (current) drug therapy; Z79.82 Long term (current) use of aspirin; Z79.02 Long term (current) use of antithrombotics/antiplatelets
CPT/HCPCS: 36415; 80053; 80076; 80307; 81001; 81003; 82077; 82248; 83690; 84443; 84484; 85025; 87086; 93005; 96372; 99285; J2060

== ENCOUNTER → 2021-07-26 14:34 | Outpatient (BNVA) | payer MEDICAID, SELFPAY | PROVIDERS: PCP Registered Nurse; Referring Provider Registered Nurse; Visit Provider Internal Medicine Cardiovascular Disease | DX: I25.10 Atherosclerotic heart disease of native coronary artery without angina pectoris (principal); I10 Essential (primary) hypertension | CPT/HCPCS: 99212 ==

== ENCOUNTER → 2021-12-11 14:55 | Outpatient (BNVA) | payer MEDICAID, SELFPAY | PROVIDERS: PCP Registered Nurse Community Health; Referring Provider Registered Nurse Community Health; Visit Provider Internal Medicine Cardiovascular Disease | DX: I10 Essential (primary) hypertension (principal); I25.10 Atherosclerotic heart disease of native coronary artery without angina pectoris; I25.2 Old myocardial infarction; F17.210 Nicotine dependence, cigarettes, uncomplicated | CPT/HCPCS: 93005; 99212 ==

== ENCOUNTER → 2022-06-13 14:36 | Outpatient (BNVA) | payer MEDICAID, SELFPAY | PROVIDERS: PCP Registered Nurse Community Health; Referring Provider Registered Nurse Community Health; Visit Provider Internal Medicine Cardiovascular Disease | DX: R07.9 Chest pain, unspecified (principal); I10 Essential (primary) hypertension; I25.10 Atherosclerotic heart disease of native coronary artery without angina pectoris | CPT/HCPCS: 99212 ==

== ENCOUNTER → 2022-07-11 08:36 | Outpatient (REF) | payer MEDICAID, SELFPAY ==
--- NOTE | ~2022-07-11 | NM_ITS ---
Myocardial perfusion study Indication: Chest pain to evaluate for myocardial ischemia Technique: The patient was brought in for a Lexiscan perfusion study on 07/11/2022. Patient performed low-level exercise and was injected 0.4 mg of Lexiscan intravenously. Within a minute of injection, 30 mCi of sestamibi was given intravenously. Images were obtained using the SPECT gamma camera interlaced with the gating device. Images were obtained in supine position. Resting perfusion study was performed on 07/12/2022. Patient was administered 30 mCi of sestamibi intravenously at rest. Images were then obtained in supine position. Images obtained with and without CT attenuation. Total DLP 127 mGy-cm Images were processed with the software and compared side to side in short axis, horizontal long axis and vertical long axis views. Findings: Both sets of images stress as well as rest was suboptimal due to intense subdiaphragmatic uptake affecting myocardial uptake The stress perfusion study showed non attenuated images show minimal thinning of the inferolateral wall of the LV myocardium. Otherwise there is normal uptake of radiotracer in all segments of LV myocardium. Attenuated corrected images are suboptimal. The gated study shows normal LV systolic function with calculated LVEF of 63%. LV cavity is normal size. The gated study shows normal systolic wall thickening and contraction of segments. Resting study shows non attenuated images show no significant abnormality in uptake.. Gating at rest reveals normal systolic wall motion with ejection fraction at 61%. The findings are consistent with likely normal myocardial perfusion with low confidence of interpretation due to subdiaphragmatic uptake. NM/NM cardiolite stress test Impression: 1. Myocardial perfusion imaging study shows likely normal myocardial perfusion 2. Gated LVEF is 63% 3. Transient ischemic dilatation not present EKG is nondiagnostic for ischemia
--- NOTE | 2022-07-11 08:46 | CA_ITS ---
Acquisition Time: 2022-07-11 08:47:51 Total Exercise Time: 00:02:00 Test Indications: CP, AFIB Medications: SEE CHART Protocol: LEXISCAN Max HR: 105 BPM 63% of Pred: 165 BPM Max BP: 102/064 mmHG Max Work Load: 1.0 METS Pharmacological stress test with Lexiscan injection, while sitting and moving his legs, with report of right sided chest discomfort post injection, with brief bradycardia post injection, without other arrythmia, with normotensive response, with nondiagnostic EKG for ischemia. In recovery he was treated with Aminophylline 75mg IVP to reverse Lexiscan with improvement in chest discomfort. Nuclear images pending. Test reviewed with Dr Lara Referred By: Bronson Butler Overread By: YASMIN CALIX
== END ==
LOC: HO.CARD 08:36
PROVIDERS: Visit Provider Internal Medicine Cardiovascular Disease
DX: R07.9 Chest pain, unspecified (principal)
CPT/HCPCS: 78452; 93017; A9500; J0280; J2785

== ENCOUNTER → 2022-10-01 13:20 | Outpatient (BNVA) | payer MEDICAID, SELFPAY | PROVIDERS: PCP Registered Nurse; Referring Provider Registered Nurse; Visit Provider Internal Medicine Cardiovascular Disease | DX: R00.2 Palpitations (principal); R07.89 Other chest pain; I25.10 Atherosclerotic heart disease of native coronary artery without angina pectoris | CPT/HCPCS: 93005; 99212 ==

== ENCOUNTER 2022-10-15 09:56 | Inpatient (IN) | payer OTHER, MEDICAID, SELFPAY ==
--- NOTE | 2022-10-15 10:07 | ED.PSYCH ---
HPI - Psych General Chief Complaint: Psychiatric Symptoms Stated Complaint: AMS,UNCOOP, HX SCHIZOPHRENIA PER EMS Time Seen by Provider: 10/15/22 10:06 Source: EMS Mode of arrival: EMS Limitations: language barrier and altered mental status History of Present Illness HPI Narrative: 4 days of paranoid, feeling like people are out to get him not eating, agitated. This happened the last time he had a schizophrenic break MD complaint: altered mental status and hallucinations Onset (ago): day(s) Duration: constant History of same: Yes Relieving factors: none Associated psychiatric symptoms: auditory hallucinations, visual hallucinations and delusions Treatments prior to arrival: none Related Data Home Medications Medication Instructions Recorded Confirmed aspirin 81 mg tablet 81 mg PO DAILY 06/11/21 10/16/22 benztropine 1 mg tablet 1 mg PO BEDTIME 06/11/21 10/16/22 clonazepam 0.5 mg tablet 0.5 mg PO BID 06/11/21 10/16/22 mirtazapine 30 mg tablet 30 mg PO BEDTIME 06/11/21 10/16/22 risperidone 0.5 mg tablet 0.5 mg PO DAILY 06/11/21 10/16/22 risperidone 3 mg tablet 3 mg PO BEDTIME 06/11/21 10/16/22 ticagrelor 90 mg tablet (Brilinta) 90 mg PO BID 06/11/21 10/16/22 trazodone 100 mg tablet 100 mg PO BEDTIME 06/11/21 10/16/22 metoprolol succinate 25 mg 1 tab PO DAILY 06/12/21 10/16/22 tablet,extended release 24 hr albuterol sulfate 90 mcg/actuation 2 puff inhalation Q4H PRN Wheezing 10/16/22 10/16/22 aerosol inhaler (ProAir HFA) Previous Rx's Medication Instructions Recorded amlodipine 2.5 mg tablet 2.5 mg PO DAILY #90 tabs 12/22/21 ezetimibe 10 mg tablet (Zetia) 10 mg PO DAILY 90 days #90 tabs 03/26/22 Allergies Allergy/AdvReac Type Severity Reaction Status Date / Time acetaminophen Allergy Unknown PANADOL = Verified 10/01/22 14:48 ACETAMINOPHEN SHELLFISH Allergy Mild PATIENT Uncoded 10/01/22 14:48 REPORTS BURNING SENSATION THROUGHOUT OPIATES Allergy Unknown BECAME Uncoded 10/01/22 14:48 ADDICTED PANADOL Allergy Unknown UNKNOWN Uncoded 10/01/22 14:48 Review of Systems Review of Systems: Yes Unobtainable due to mental status Neurologic: Denies Sensory deficit (Neuro) [facility] Past Medical History Medical History Hypertension Schizoaffective disorder Surgical History History of hernia repair Family History Family History Father Edema Mother Developmental delay Social History Social History Alcohol intake: never Patient Tobacco Use Status: Former Tobacco user Cigarette Packs Per Day: 1 Cigarettes Per Day: 20 Years Smoked: 30 +/- Advance Directives: No Advance Directives Information Provided: No Physical Exam Vital Signs: Vital Signs: Last Vital Signs Temp 98.4 F 10/16/22 05:47 Pulse 79 10/16/22 05:47 Resp 17 10/16/22 05:47 BP 133/71 10/16/22 05:47 Pulse Ox 96 10/16/22 05:47 O2 Del Method 10/16/22 05:47 O2 Flow Rate 2 10/15/22 10:22 Oxygen Flow Rate 2 10/15/22 10:25 BMI result Body Mass Index 25.8 Const: Other: Agitated and hyperventilating Nutritional Appearance: average body habitus Limitations: altered mental status HEENT: Head: Yes normal to inspection Ears: external ears normal General nose exam: Normal external nose present Mouth: Normal oral and palatal mucosa present and oropharynx normal Throat: Yes posterior oropharynx normal Eyes: General: appearance normal, both eyes and all related structures Neck: Other: supple Neck: Yes normal visual inspection Chest: Chest palpation & inspection: normal inspection of the chest Resp: Auscultation: clear to auscultation bilaterally Cardio: Other: tachycardia Jugular venous distension: no JVD GI: Inspection: Yes normal to inspection Palpation (GI): Soft to palpation, nontender and No hepatosplenomegaly present Auscultation: normal bowel sounds : General: Yes no CVA tenderness Back/Spine/Pelvis: Back: no CVA tenderness Skin: General skin exam: no rashes or lesions noted Neuro: Cranial nerves: Yes CN's II-XII intact bilaterally Motor exam (neuro): 5/5 motor strength present throughout Sensory Exam: No Sensory deficit (Neuro) Extrem: General: Yes normal to inspection Psych: Other: agitated non verbal Course Reevaluation(s) Reevaluation #1: patient is more anemic will clear medically despite that Time: 15:24 Medications Administered Discontinued Medications Generic Name Dose Route Start Last Admin Trade Name Freq PRN Reason Stop Dose Admin Midazolam HCl 2 mg 10/15/22 10:15 10/15/22 10:32 Midazolam Hcl/Pf 2 Mg/2 Ml Vial IVPUSH 10/15/22 10:16 2 mg ONCE ONE Administration Midazolam HCl 1 mg 10/15/22 22:19 10/15/22 22:41 Midazolam Hcl/Pf 2 Mg/2 Ml Vial IVPUSH 10/15/22 22:20 1 mg ONCE ONE Administration Olanzapine 10 mg 10/15/22 10:13 10/15/22 10:30 Olanzapine 10 Mg Vial IM 10/15/22 10:14 10 mg ONCE ONE Administration MDM - Psych Lab Data Result diagrams: 10/15/22 11:27 10/15/22 11:27 Labs: Lab Results 10/15/22 10/15/22 10/15/22 Range/Units 10:17 11:27 11:27 WBC 9.2 (4.8-10.8) X10*3/uL RBC 4.98 (4.60-5.80) X10*6/uL Hgb 9.0 L (14.0-18.0) g/dl Hct 31.3 L (42.0-52.0) % MCV 62.9 L (80.0-98.0) fL MCH 18.1 L (27.0-33.0) pg MCHC 28.8 L (31.0-36.0) g/dl RDW 22.7 H (11.0-16.0) % Plt Count 390 (160-400) X10*3/uL MPV 9.4 (9.4-12.4) fL Immature Gran % (Auto) 0.3 (0.0-0.4) % Neut % (Auto) 80.4 H (45-73) % Lymph % (Auto) 10.8 L (20-40) % [place] % (Auto) 8.1 (2-11) % Eos % (Auto) 0.2 (0-4) % Baso % (Auto) 0.2 (0-2) % Lymph # (Auto) 1.0 L (1.2-4.9) X10*3/uL [place] # (Auto) 0.8 (0.1-1.2) X10*3/uL Eos # (Auto) 0.0 (0.0-0.4) X10*3/uL Baso # (Auto) 0.0 (0.0-0.2) X10*3/uL Abs Immat Gran (auto) 0.03 (0.00-0.03) X10*3/uL Absolute Neuts (auto) 7.4 (2.0-8.3) x10*3/uL Absolute Nucleated RBC 0.000 (0.0-0.012) X10*3/uL Nucleated RBC % (auto) 0.0 (0.0-0.2) /100WBC Smear Tech's Comments VERIFIED Sodium 139 (135-145) mmol/L Potassium 3.3 (3.3-5.1) mmol/L Chloride 103 (96-108) mmol/L Carbon Dioxide 24 (22-29) mmol/L Anion Gap 15 (12-20) BUN 14 (9-16) mg/dL Creatinine 0.76 (0.5-1.4) mg/dL Estim Creat Clear Calc 99.1 Estimated GFR > 60 POC Glucose 142 H (60-115) mg/dL Random Glucose 70 D (60-115) mg/dL Calcium 10.0 (8.4-10.2) mg/dL Total Bilirubin 0.5 (0.0-1.0) mg/dL AST 32 (5-37) U/L ALT 24 (0-40) U/L Alkaline Phosphatase 87 (39-117) U/L Total Protein 8.1 H (6.5-8.0) g/dL Albumin 4.7 (3.5-5.0) g/dL Urine Color Urine Appearance Urine pH (5.0-9.0) Ur Specific [place] (1.005-1.025) Urine Protein (Neg-Trace) mg/dL Urine Glucose (UA) (Negative) mg/dL Urine Ketones (Negative) mg/dL Urine Blood (Negative) Urine Nitrite (Negative) Ur Leukocyte Esterase (Negative) Urine RBC (0-2) /HPF Urine WBC (0-5) /HPF Ur Squamous Epith Cells (0-2) /HPF Urine Bacteria (None Seen) Hyaline Casts (0-2) /LPF Urine Opiates Screen (Not Detect) Urine Fentanyl Screen (Not Detect) Ur Barbiturates Screen (Not Detect) Ur Phencyclidine Scrn (Not Detect) Ur Amphetamines Screen (Not Detect) U Benzodiazepines Scrn (Not Detect) Urine Cocaine Screen (Not Detect) U Marijuana (THC) Screen (Not Detect) Ethyl Alcohol mg/dL COVID-19 (VITO) (Negative) COVID-19 Clin Com 10/15/22 10/15/22 10/15/22 Range/Units 11:27 17:07 17:48 WBC (4.8-10.8) X10*3/uL RBC (4.60-5.80) X10*6/uL Hgb (14.0-18.0) g/dl Hct (42.0-52.0) % MCV (80.0-98.0) fL MCH (27.0-33.0) pg MCHC (31.0-36.0) g/dl RDW (11.0-16.0) % Plt Count (160-400) X10*3/uL MPV (9.4-12.4) fL Immature Gran % (Auto) (0.0-0.4) % Neut % (Auto) (45-73) % Lymph % (Auto) (20-40) % [place] % (Auto) (2-11) % Eos % (Auto) (0-4) % Baso % (Auto) (0-2) % Lymph # (Auto) (1.2-4.9) X10*3/uL [place] # (Auto) (0.1-1.2) X10*3/uL Eos # (Auto) (0.0-0.4) X10*3/uL Baso # (Auto) (0.0-0.2) X10*3/uL Abs Immat Gran (auto) (0.00-0.03) X10*3/uL Absolute Neuts (auto) (2.0-8.3) x10*3/uL Absolute Nucleated RBC (0.0-0.012) X10*3/uL Nucleated RBC % (auto) (0.0-0.2) /100WBC Smear Tech's Comments Sodium (135-145) mmol/L Potassium (3.3-5.1) mmol/L Chloride (96-108) mmol/L Carbon Dioxide (22-29) mmol/L Anion Gap (12-20) BUN (9-16) mg/dL Creatinine (0.5-1.4) mg/dL Estim Creat Clear Calc Estimated GFR POC Glucose (60-115) mg/dL Random Glucose (60-115) mg/dL Calcium (8.4-10.2) mg/dL Total Bilirubin (0.0-1.0) mg/dL AST (5-37) U/L ALT (0-40) U/L Alkaline Phosphatase (39-117) U/L Total Protein (6.5-8.0) g/dL Albumin (3.5-5.0) g/dL Urine Color Urine Appearance Urine pH (5.0-9.0) Ur Specific [place] (1.005-1.025) Urine Protein (Neg-Trace) mg/dL Urine Glucose (UA) (Negative) mg/dL Urine Ketones (Negative) mg/dL Urine Blood (Negative) Urine Nitrite (Negative) Ur Leukocyte Esterase (Negative) Urine RBC (0-2) /HPF Urine WBC (0-5) /HPF Ur Squamous Epith Cells (0-2) /HPF Urine Bacteria (None Seen) Hyaline Casts (0-2) /LPF Urine Opiates Screen Not Detected (Not Detect) Urine Fentanyl Screen Not Detected (Not Detect) Ur Barbiturates Screen Not Detected (Not Detect) Ur Phencyclidine Scrn Not Detected (Not Detect) Ur Amphetamines Screen Not Detected (Not Detect) U Benzodiazepines Scrn POSITIVE H (Not Detect) Urine Cocaine Screen Not Detected (Not Detect) U Marijuana (THC) Screen POSITIVE H (Not Detect) Ethyl Alcohol < 10 mg/dL COVID-19 (VITO) Negative (Negative) COVID-19 Clin Com See Note 10/15/22 Range/Units 17:48 WBC (4.8-10.8) X10*3/uL RBC (4.60-5.80) X10*6/uL Hgb (14.0-18.0) g/dl Hct (42.0-52.0) % MCV (80.0-98.0) fL MCH (27.0-33.0) pg MCHC (31.0-36.0) g/dl RDW (11.0-16.0) % Plt Count (160-400) X10*3/uL MPV (9.4-12.4) fL Immature Gran % (Auto) (0.0-0.4) % Neut % (Auto) (45-73) % Lymph % (Auto) (20-40) % [place] % (Auto) (2-11) % Eos % (Auto) (0-4) % Baso % (Auto) (0-2) % Lymph # (Auto) (1.2-4.9) X10*3/uL [place] # (Auto) (0.1-1.2) X10*3/uL Eos # (Auto) (0.0-0.4) X10*3/uL Baso # (Auto) (0.0-0.2) X10*3/uL Abs Immat Gran (auto) (0.00-0.03) X10*3/uL Absolute Neuts (auto) (2.0-8.3) x10*3/uL Absolute Nucleated RBC (0.0-0.012) X10*3/uL Nucleated RBC % (auto) (0.0-0.2) /100WBC Smear Tech's Comments Sodium (135-145) mmol/L Potassium (3.3-5.1) mmol/L Chloride (96-108) mmol/L Carbon Dioxide (22-29) mmol/L Anion Gap (12-20) BUN (9-16) mg/dL Creatinine (0.5-1.4) mg/dL Estim Creat Clear Calc Estimated GFR POC Glucose (60-115) mg/dL Random Glucose (60-115) mg/dL Calcium (8.4-10.2) mg/dL Total Bilirubin (0.0-1.0) mg/dL AST (5-37) U/L ALT (0-40) U/L Alkaline Phosphatase (39-117) U/L Total Protein (6.5-8.0) g/dL Albumin (3.5-5.0) g/dL Urine Color Yellow Urine Appearance Clear Urine pH 5.5 (5.0-9.0) Ur Specific [place] 1.025 (1.005-1.025) Urine Protein 30 (1+) H (Neg-Trace) mg/dL Urine Glucose (UA) Negative (Negative) mg/dL Urine Ketones 80 (Negative) mg/dL Urine Blood Trace H (Negative) Urine Nitrite Negative (Negative) Ur Leukocyte Esterase Negative (Negative) Urine RBC 11-20 H (0-2) /HPF Urine WBC 6-10 H (0-5) /HPF Ur Squamous Epith Cells 0-2 (0-2) /HPF Urine Bacteria None Seen (None Seen) Hyaline Casts 3-5 (0-2) /LPF Urine Opiates Screen (Not Detect) Urine Fentanyl Screen (Not Detect) Ur Barbiturates Screen (Not Detect) Ur Phencyclidine Scrn (Not Detect) Ur Amphetamines Screen (Not Detect) U Benzodiazepines Scrn (Not Detect) Urine Cocaine Screen (Not Detect) U Marijuana (THC) Screen (Not Detect) Ethyl Alcohol mg/dL COVID-19 (VITO) (Negative) COVID-19 Clin Com Discharge Plan Discharge Clinical Impression: Bipolar disorder, Chronic schizophrenia Patient Disposition: Still a Patient Prescriptions: No Action amlodipine 2.5 mg tablet 2.5 mg PO DAILY Qty: 90 3RF ezetimibe [Zetia] 10 mg tablet 10 mg PO DAILY 90 Days Qty: 90 3RF clonazepam 0.5 mg Tablet 0.5 mg PO BID risperidone 3 mg Tablet 3 mg PO BEDTIME trazodone 100 mg Tablet 100 mg PO BEDTIME mirtazapine 30 mg Tablet 30 mg PO BEDTIME benztropine 1 mg Tablet 1 mg PO BEDTIME aspirin 81 mg Tablet 81 mg PO DAILY risperidone 0.5 mg Tablet 0.5 mg PO DAILY Brilinta 90 mg Tablet 90 mg PO BID metoprolol succinate 25 mg tablet extended release 24 hr 1 tab PO DAILY albuterol sulfate [ProAir HFA] 90 mcg/actuation HFA aerosol inhaler 2 puff inhalation Q4H PRN (Reason: Wheezing)
[2022-10-15 10:22] VITALS: BP 116/85; PULSE 95; RESP 24; TEMP 36.9; O2SAT 94
[2022-10-15 10:23] LABS: Glucose, Whole Blood 142 mg/dL (60-115)
[2022-10-15 10:25] VITALS: BP 116/85; BP 150/100; PULSE 120; RESP 22; TEMP 36.9; O2SAT 98; O2SAT 99; BMI 25.8
[2022-10-15] MEDS: OLANZapine 10 MG VIAL IM (10:30)
[2022-10-15] MEDS: Midazolam HCl/PF 2 MG/2 ML VIAL IVPUSH (10:32)
--- NOTE | 2022-10-15 10:45 | PC.NURSE ---
Addendum entered by Anastasiia Garcias 10/15/22 14:05: Pt selvin. Original Note: PT calm and cooperative. Denies pain. Meds given as documented.
[2022-10-15 11:35] LABS: Basophils Percent Auto 0.2 % (0-2); Eosinophils Percent Auto 0.2 % (0-4); Monocytes Absolute Auto 0.8 X10*3/uL (0.1-1.2); PLT CLUMP 1; SCAN SMEAR FLAG 1
[2022-10-15 11:37] LABS: Hematocrit 31.3 % (42.0-52.0); Imm Gran Abs Auto 0.03 X10*3/uL (0.00-0.03); Imm Gran Pct Auto 0.3 % (0.0-0.4); Lymphocytes Percent Auto 10.8 % (20-40); MANUAL DIFF FLAG SCAN; Mean Corpuscular HGB Conc 28.8 g/dl (31.0-36.0); Mean Corpuscular Hemoglobin 18.1 pg (27.0-33.0); Mean Platelet Volume 9.4 fL (9.4-12.4); Monocytes Percent Auto 8.1 % (2-11); Neutrophils Absolute Auto 7.4 x10*3/uL (2.0-8.3); Neutrophils Percent Auto 80.4 % (45-73); Red Blood Count 4.98 X10*6/uL (4.60-5.80); Red Cell Distribution Width 22.7 % (11.0-16.0)
[2022-10-15 11:48] LABS: Alanine Aminotransferase 24 U/L (0-40); Albumin Level 4.7 g/dL (3.5-5.0); Alkaline Phosphatase 87 U/L (39-117); Anion Gap 15 (12-20); Aspartate Amino Transferase 32 U/L (5-37); Bilirubin Total 0.5 mg/dL (0.0-1.0); Blood Urea Nitrogen 14 mg/dL (9-16); Carbon Dioxide 24 mmol/L (22-29); Chloride 103 mmol/L (96-108); Creatinine Clr Calc Pharmacy 99.1; Estimated Glomerular Filt Rate > 60; Glucose Random 70 mg/dL (60-115); Mean Corpuscular Volume 62.9 fL (80.0-98.0); Potassium 3.3 mmol/L (3.3-5.1); Sodium 139 mmol/L (135-145); Total Protein 8.1 g/dL (6.5-8.0)
[2022-10-15 11:49] LABS: PLT ABN DIST 1
[2022-10-15 11:50] LABS: Ethanol < 10 mg/dL; White Blood Count 9.2 X10*3/uL (4.8-10.8)
[2022-10-15 12:02] VITALS: BP 124/52; PULSE 97; RESP 24; TEMP 37.1; O2SAT 97
[2022-10-15 12:12] LABS: Platelet Count 390 X10*3/uL (160-400)
[2022-10-15 12:13] LABS: SLIDE REVIEW VERIFIED
--- NOTE | 2022-10-15 14:06 | PC.NURSE ---
PT asking to leave, requesting to see mother.
[2022-10-15 14:38] VITALS: BP 182/149; RESP 19; TEMP 37.3; O2SAT 99
--- NOTE | 2022-10-15 14:40 | PC.NURSE ---
[place] consult form submitted.
--- NOTE | 2022-10-15 15:20 | PC.NURSE ---
PT receptively requesting to talk to mother. PT redirected but continues to call out.
--- NOTE | 2022-10-15 16:45 | PC.NURSE ---
PT offered food and drinks, PT refused.
[2022-10-15 17:34] LABS: COVID-19 Test Negative (Negative); IDNOW Serial# BCCEAD1C
--- NOTE | 2022-10-15 17:46 | PC.NURSE ---
PT straight cath for urine sample. Urine sent to lab.
[2022-10-15 17:57] LABS: Appearance Urine Clear; Color Urine Yellow; Glucose Urine UA Negative (Negative); Leukocyte Esterase Urine Negative (Negative); Nitrite Urine Negative (Negative); PH 5.5 (5.0-9.0); Specific Gravity - Urine 1.025 (1.005-1.025); UMIC TRIGGER UACC YES; Urine Blood Trace (Negative); Urine Ketones 80 mg/dL (Negative); Urine Protein 30 (1+) mg/dL (Neg-Trace)
[2022-10-15 18:01] LABS: Bacteria Urine None Seen (None Seen); Squamous Epithelial Cell Urine 0-2 /HPF (0-2); UACC Culture Trigger YES
[2022-10-15 18:03] LABS: Amphetamine Screen Urine Not Detected (Not Detect); Barbiturates, Urine Not Detected (Not Detect); Benzodiazepines Screen Urine POSITIVE (Not Detect); Cannabinoid Screen Urine POSITIVE (Not Detect); Cocaine Screen Urine Not Detected (Not Detect); Fentanyl, urine Not Detected (Not Detect); Opiate Screen Urine Not Detected (Not Detect); Phencyclidine Screen Urine Not Detected (Not Detect)
--- NOTE | 2022-10-15 18:45 | PC.NURSE ---
Unable to perform [place]/psychiatric scale. PT guarded, asking for phone to call mother.
--- NOTE | 2022-10-15 21:43 | PC.NURSE ---
Assumed care of pt. at 1900. Pt. resting in bed at shift change. Pt. became increasingly agitated, perseverating on a pt. out in the hallway. Pt. stating that they need to go outside and need to just be in the hallway . Pt. medicated w/Zyprexa per Dr. Hyatt. Security called to assist in keeping pt. in room as he was actively trying to come to close to another pt. Pt. up out of bed again and techs were able to redirect back in bed where he is currently resting. Needing to be verbally redirected time to time still to remain in his room.
[2022-10-15] MEDS: Midazolam HCl/PF 2 MG/2 ML VIAL 1 MG IVPUSH (22:41)
--- NOTE | 2022-10-15 23:03 | PC.NURSE ---
Pt. continued to be agitated, shaking his hands. Pt. continuously seeking to exit his room. Pt. medicated per MAR with good effect. Pt. now sleeping. VSS stable.
[2022-10-15 23:29] VITALS: BP 122/70; PULSE 106; RESP 24; TEMP 36.7; O2SAT 96
--- NOTE | 2022-10-16 | ECG_ITS ---
Test Reason : CHEST PAIN Blood Pressure : / mmHG Vent. 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
--- NOTE | 2022-10-16 03:01 | PC.NURSE ---
Pt. has been awake and continuously asking about going for a walk. Pt. is resting in bed at this time.
[2022-10-16 05:47] VITALS: BP 133/71; PULSE 79; RESP 17; TEMP 36.9; O2SAT 96
--- NOTE | 2022-10-16 09:39 | PC.NURSE ---
PT awake, did not eat breakfast, drinking fluids. Denies pain. Repetitively asking to call mother, easily redirected.
--- NOTE | 2022-10-16 09:57 | PHA.MEDREC ---
Pharmacy Consult ? Medication Reconciliation Pharmacy has completed the medication reconciliation. spoke to brother and he believes list is accurate
--- NOTE | 2022-10-16 10:00 | PC.NURSE ---
Unable to perform [place]/psychiatric scale. PT unable to answer questions appropriately.
[2022-10-16] MEDS: clonazePAM 0.5 MG TABLET PO ×2 (11:30→20:00)
[2022-10-16] MEDS: Ezetimibe 10 MG TABLET PO (11:30)
[2022-10-16] MEDS: Metoprolol Succinate ER 25 MG TAB.ER.24H PO (11:30)
[2022-10-16] MEDS: risperiDONE 0.5 MG TABLET PO (11:30)
[2022-10-16] MEDS: amLODIPine Besylate 2.5 MG TABLET PO (11:30)
[2022-10-16] MEDS: Ticagrelor 90 MG TABLET PO ×2 (11:30→21:37)
[2022-10-16] MEDS: Aspirin Enteric Coated 81 MG TABLET.DR PO (11:30)
--- NOTE | 2022-10-16 11:30 | PC.NURSE ---
PO meds given as documented. PT needed verbal encouragement and cues.
[2022-10-16 11:41] VITALS: BP 136/76; PULSE 121; RESP 24; O2SAT 98
[2022-10-16 11:48] LABS: MANUAL DIFF FLAG NO
--- NOTE | 2022-10-16 11:50 | PC.NURSE ---
[facility] worker Olga called for update on PT. She asked to be called if PT discharge. (M-F 9am-5pm [phone]) if after 5pm business support professional # [phone].
[2022-10-16 11:51] LABS: Basophils Percent Auto 0.4 % (0-2); Eosinophils Percent Auto 0.2 % (0-4); Hematocrit 34.8 % (42.0-52.0); Hemoglobin 9.9 g/dl (14.0-18.0); Imm Gran Abs Auto 0.04 X10*3/uL (0.00-0.03); Imm Gran Pct Auto 0.4 % (0.0-0.4); Lymphocytes Absolute Auto 1.3 X10*3/uL (1.2-4.9); Lymphocytes Percent Auto 11.8 % (20-40); Mean Corpuscular HGB Conc 28.4 g/dl (31.0-36.0); Mean Corpuscular Hemoglobin 17.7 pg (27.0-33.0); Mean Platelet Volume 9.1 fL (9.4-12.4); Monocytes Absolute Auto 1.2 X10*3/uL (0.1-1.2); Monocytes Percent Auto 10.3 % (2-11); Neutrophils Absolute Auto 8.7 x10*3/uL (2.0-8.3); Neutrophils Percent Auto 76.9 % (45-73); Platelet Count 501 X10*3/uL (160-400); Red Blood Count 5.58 X10*6/uL (4.60-5.80); Red Cell Distribution Width 22.9 % (11.0-16.0); White Blood Count 11.3 X10*3/uL (4.8-10.8)
[2022-10-16 11:53] LABS: Mean Corpuscular Volume 62.4 fL (80.0-98.0)
[2022-10-16 13:40] VITALS: BP 127/81; PULSE 100; RESP 26; O2SAT 100
[2022-10-16] MEDS: risperiDONE 3 MG TABLET PO (19:58)
[2022-10-16] MEDS: hydrOXYzine HCL 25 MG TABLET PO (19:59)
[2022-10-16] MEDS: Benztropine Mesylate 1 MG TABLET PO (19:59)
[2022-10-16 20:02] VITALS: BP 125/83; PULSE 112; TEMP 36.6; O2SAT 99
[2022-10-16] MEDS: Mirtazapine 30 MG TABLET PO (21:37)
[2022-10-16] MEDS: traZODone HCL 100 MG TABLET PO (21:37)
[2022-10-16 22:05] VITALS: BMI 22.4
--- NOTE | 2022-10-17 00:56 | PC.NURSE ---
admission note for 10/16-PT is a 12B. he was a referral from the CARE team via the ER. nurse to nurse, collateral information obtained prior to admission. presents as depressed and paranoid. has a dx of intellectual disability/cognitive impairment. . SI. race relations professor utilized. medication reconciliation done in the ER race relations professor utilized. multiple medical issues noted. uses marijuana daily.
--- NOTE | 2022-10-17 08:56 | PC.ADMIT ---
continued admission note-patient signed release of informations but states he does not read or write. all forms reviewed verbally thru the door serviceman services. patient signed forms with an X.
--- NOTE | 2022-10-17 09:50 | HO.PSYCHPN ---
Subjective Subjective Date of Service: 10/17/22 Reason For Visit: SI Subjective Notes: Section 12B Interim History: Pt reports he does not know why he is here. He denies SI/HI. and asks this medical underwriter to let him go home today. He reports his brother told him to stay until he is better, then he adds, but I am better now, I can go home. When asking him in what way he is better, he states I'm better. Unable to provide further details as concerns that family has. Medication Compliance: Yes Review of Systems Review of Systems Yes Unobtainable due to mental status Denies Sensory deficit (Neuro) Mental Status Exam Mental Status Exam Narrative: Appearance: thin, wearing hospital gown, malnourish, in NAD, pacing appears suspicious and guarded at times Behavior: minimally engaging Speech: mumbles at times, some delay in response but not significant, minimally spontaneous TP: poverty of thought TC: wanting to go Mood: good Affect: constricted and paranoid SI: denies HI: denies VH/AH: denies but appears internally preoccupied. Delusions, no overt delusions reported but appears guarded, following pt, suspicious Insight/judgment: limited x 2. Diagnostics Vital Signs (24Hr): Vital Signs - 24 hr 10/17/22 11:28 10/17/22 20:15 Temperature 97.4 F 97.8 F Pulse Rate 99 111 H Respiratory Rate 18 Blood Pressure 176/73 H 125/85 Pulse Oximetry 98 98 Oxygen Delivery Method Room Air Room Air BMI result Body Mass Index 22.4 Labs Results: 10/16/22 11:40 10/17/22 11:28 Labs: Laboratory Results - last 48 hr 10/16/22 10/17/22 10/17/22 11:40 11:28 11:28 WBC 11.3 H RBC 5.58 Hgb 9.9 L Hct 34.8 L MCV 62.4 L MCH 17.7 L MCHC 28.4 L RDW 22.9 H Plt Count 501 H D MPV 9.1 L Immature Gran % (Auto) 0.4 Neut % (Auto) 76.9 H Lymph % (Auto) 11.8 L [place] % (Auto) 10.3 Eos % (Auto) 0.2 Baso % (Auto) 0.4 Lymph # (Auto) 1.3 [place] # (Auto) 1.2 Eos # (Auto) 0.0 Baso # (Auto) 0.0 Abs Immat Gran (auto) 0.04 H Absolute Neuts (auto) 8.7 H Absolute Nucleated RBC 0.000 Nucleated RBC % (auto) 0.0 Smear Path Review SEE NOTE Sodium 137 Potassium 3.4 Chloride 101 Carbon Dioxide 22 Anion Gap 17 BUN 28 H D Creatinine 0.94 Estim Creat Clear Calc 78.9 Estimated GFR > 60 Fasting Glucose 139 H Estimat Average Glucose 91 Hemoglobin A1c % 4.8 Calcium 10.0 Total Bilirubin 0.6 AST 33 ALT 25 Alkaline Phosphatase 93 Total Protein 8.3 H Albumin 4.7 Triglycerides 81 Cholesterol 137 LDL Cholesterol, Calc 92 HDL Cholesterol 29 Medications Medications Current Medications Acetaminophen (Acetaminophen 325 Mg Tablet) 650 mg PO Q6H PRN PRN Reason: Headache/Pain Mild Scale (1-3) Al Hydroxide/Mg Hydroxide (Magnesium Hydrox/Alum Hydrox 30 Ml Oral.Susp) 30 ml PO Q6H PRN PRN Reason: Heartburn/Nausea Albuterol Sulfate (Albuterol Sulfate 90 Mcg 8 Gm Inhaler) 2 puff INHALE Q4H PRN PRN Reason: Wheezing Amlodipine Besylate (Amlodipine Besylate 2.5 Mg Tablet) 2.5 mg PO DAILY [facility]; Protocol Last Admin: 10/18/22 09:21 Dose: 2.5 mg Aspirin (Aspirin Enteric Coated 81 Mg Tablet.Dr) 81 mg PO DAILY [facility] Last Admin: 10/18/22 09:25 Dose: Not Given Benztropine Mesylate (Benztropine Mesylate 1 Mg Tablet) 1 mg PO BEDTIME [facility] Last Admin: 10/17/22 20:28 Dose: 1 mg Clonazepam (Clonazepam 0.5 Mg Tablet) 0.5 mg PO BID [facility] Last Admin: 10/18/22 09:22 Dose: 0.5 mg Ezetimibe (Ezetimibe 10 Mg Tablet) 10 mg PO DAILY [facility] Last Admin: 10/18/22 09:22 Dose: 10 mg Hydroxyzine HCl (Hydroxyzine Hcl 25 Mg Tablet) 25 mg PO Q6H PRN PRN Reason: Anxiety Last Admin: 10/17/22 16:15 Dose: 25 mg Magnesium Hydroxide (Milk Of Magnesia 30 Ml Oral.Susp) 30 ml PO DAILY PRN PRN Reason: Constipation Metoprolol Succinate (Metoprolol Succinate Er 25 Mg Tab.Er.24h) 25 mg PO DAILY [facility]; Protocol Last Admin: 10/18/22 09:21 Dose: 25 mg Mirtazapine (Mirtazapine 15 Mg Tablet) 15 mg PO BEDTIME [facility] Last Admin: 10/17/22 20:28 Dose: 15 mg Pharmacy Consult (Consult Rx Perform Med Rec) 1 each MISCELLANE ONCE PRN PRN Reason: Consult order Risperidone (Risperidone 0.5 Mg Tablet) 0.5 mg PO DAILY [facility] Last Admin: 10/18/22 09:26 Dose: Not Given Risperidone (Risperidone 3 Mg Tablet) 3 mg PO BEDTIME [facility] Last Admin: 10/17/22 20:28 Dose: 3 mg Ticagrelor (Ticagrelor 90 Mg Tablet) 90 mg PO BID [facility] Last Admin: 10/18/22 09:23 Dose: 90 mg Trazodone HCl (Trazodone Hcl 100 Mg Tablet) 100 mg PO BEDTIME [facility] Last Admin: 10/17/22 20:28 Dose: 100 mg Trazodone HCl (Trazodone Hcl 50 Mg Tablet) 50 mg PO BEDTIME PRN PRN Reason: Insomnia Allergies Allergies Allergy/AdvReac Type Severity Reaction Status Date / Time acetaminophen Allergy Unknown PANADOL = Verified 10/01/22 14:48 ACETAMINOPHEN SHELLFISH Allergy Mild PATIENT Uncoded 10/01/22 14:48 REPORTS BURNING SENSATION THROUGHOUT OPIATES Allergy Unknown BECAME Uncoded 10/01/22 14:48 ADDICTED PANADOL Allergy Unknown UNKNOWN Uncoded 10/01/22 14:48 Assessment & Plan Assessment & Plan (1) Chronic schizophrenia: Status: Acute Code(s): F20.9 - Schizophrenia, unspecified Plan continue tx. obtain collateral information. I spent minutes with the patient and/or on the patient floor today, greater than?50% of which was spent counseling/coordinating care. Reason for contiued inpatient stay Substantial Risk for: inability to function
--- NOTE | 2022-10-17 09:57 | HO.PSYADMNOT ---
HPI Date of Service: 10/17/22 Chief Complaint: SI Sources of Information: patient interviewed, chart reviewed and crisis/core team assessment reviewed HPI Subjective Notes: Rodríguez Warning and Section 12B Narrative: Mr. Morillo is a 57 year-old male with hx of schizoaffective disorder brought in by brother due to increase paranoid towards police and community resource officer. Utox is negative. CBC with elevated WBC 22 and microcytic anemia, but repeat CBC WBC wnl. Pt apparently denied occult blood test on stool. On the unit, pt reports he does not know why he is here. He states his brother told him to get better and he states I am better. He denies suicidal or homicidal ideation. He asks if he can return home. When asked in what way he feels better he continues to ask if he can return home. His speech is with loose association. He does have underlying cognitive impairments. Per brother, pt was more paranoid about police. Brother denies any safety concern in terms of suicidal or homicidal ideation. He reports pt at times does not take medications as prescribed. Past Psychiatric History: INpt: multiple in the past. OP: Dr. Jordan Lee Past med trials: risperidone Medical Evaluation Reviewed: Yes microcitic anemia, elevated platelets. REPLACED BY [facility] Medical History Hypertension Schizoaffective disorder Surgical History History of hernia repair Diagnostics Vital Signs (24Hr): Vital Signs - 24 hr 10/17/22 11:28 10/17/22 20:15 Temperature 97.4 F 97.8 F Pulse Rate 99 111 H Respiratory Rate 18 Blood Pressure 176/73 H 125/85 Pulse Oximetry 98 98 Oxygen Delivery Method Room Air Room Air BMI result Body Mass Index 22.4 Labs Results: 10/16/22 11:40 10/17/22 11:28 Labs: Laboratory Results - last 48 hr 10/16/22 10/17/22 10/17/22 11:40 11:28 11:28 WBC 11.3 H RBC 5.58 Hgb 9.9 L Hct 34.8 L MCV 62.4 L MCH 17.7 L MCHC 28.4 L RDW 22.9 H Plt Count 501 H D MPV 9.1 L Immature Gran % (Auto) 0.4 Neut % (Auto) 76.9 H Lymph % (Auto) 11.8 L Garrett % (Auto) 10.3 Eos % (Auto) 0.2 Baso % (Auto) 0.4 Lymph # (Auto) 1.3 Garrett # (Auto) 1.2 Eos # (Auto) 0.0 Baso # (Auto) 0.0 Abs Immat Gran (auto) 0.04 H Absolute Neuts (auto) 8.7 H Absolute Nucleated RBC 0.000 Nucleated RBC % (auto) 0.0 Smear Path Review SEE NOTE Sodium 137 Potassium 3.4 Chloride 101 Carbon Dioxide 22 Anion Gap 17 BUN 28 H D Creatinine 0.94 Estim Creat Clear Calc 78.9 Estimated GFR > 60 Fasting Glucose 139 H Estimat Average Glucose 91 Hemoglobin A1c % 4.8 Calcium 10.0 Total Bilirubin 0.6 AST 33 ALT 25 Alkaline Phosphatase 93 Total Protein 8.3 H Albumin 4.7 Triglycerides 81 Cholesterol 137 LDL Cholesterol, Calc 92 HDL Cholesterol 29 Meds/Allergies Meds Home Medications Medication Instructions Recorded Confirmed Type aspirin 81 mg tablet 81 mg PO DAILY 06/11/21 10/16/22 History benztropine 1 mg tablet 1 mg PO BEDTIME 06/11/21 10/16/22 History clonazepam 0.5 mg tablet 0.5 mg PO BID 06/11/21 10/16/22 History mirtazapine 30 mg tablet 30 mg PO BEDTIME 06/11/21 10/16/22 History risperidone 0.5 mg tablet 0.5 mg PO DAILY 06/11/21 10/16/22 History risperidone 3 mg tablet 3 mg PO BEDTIME 06/11/21 10/16/22 History ticagrelor 90 mg tablet (Brilinta) 90 mg PO BID 06/11/21 10/16/22 History trazodone 100 mg tablet 100 mg PO BEDTIME 06/11/21 10/16/22 History metoprolol succinate 25 mg 1 tab PO DAILY 06/12/21 10/16/22 History tablet,extended release 24 hr albuterol sulfate 90 mcg/actuation 2 puff inhalation Q4H PRN Wheezing 10/16/22 10/16/22 History aerosol inhaler (ProAir HFA) Allergies Allergies Allergy/AdvReac Type Severity Reaction Status Date / Time acetaminophen Allergy Unknown PANADOL = Verified 10/01/22 14:48 ACETAMINOPHEN SHELLFISH Allergy Mild PATIENT Uncoded 10/01/22 14:48 REPORTS BURNING SENSATION THROUGHOUT OPIATES Allergy Unknown BECAME Uncoded 10/01/22 14:48 ADDICTED PANADOL Allergy Unknown UNKNOWN Uncoded 10/01/22 14:48 Mental Status Exam Mental Status Exam Narrative: Appearance: thin, wearing hospital gown, malnourish, in NAD, pacing appears suspicious and guarded at times Behavior: minimally engaging Speech: mumbles at times, some delay in response but not significant, minimally spontaneous TP: poverty of thought TC: wanting to go Mood: good Affect: constricted and paranoid SI: denies HI: denies VH/AH: denies but appears internally preoccupied. Delusions, no overt delusions reported but appears guarded, following pt, suspicious Insight/judgment: limited x 2. Assessment & Plan Assessment & Plan (1) Chronic schizophrenia: Status: Acute Code(s): F20.9 - Schizophrenia, unspecified Plan Mr. Morillo is a 57 year-old male with hx of schizophrenia brought in to [facility] ED by brother who reports pt more paranoid towards police. Here on the unit, pt denies any concerns and asks if he can be discharged home. Utox negative. PLAN 1. admit to M3, sect 12b. 15 mins check 2. continue medications 3. obtain collateral information 4. aftercare planning. Patient educated on: diagnosis Reason for continued inpatient stay Substantial Risk for: inability to function Statement Statement: I have reviewed the history and physical and performed a pertinent examination on my patient. No changes have occurred unless specified.
[2022-10-17] MEDS: Ezetimibe 10 MG TABLET PO (09:59)
[2022-10-17] MEDS: clonazePAM 0.5 MG TABLET PO ×2 (10:00→20:28)
[2022-10-17] MEDS: Aspirin Enteric Coated 81 MG TABLET.DR PO (10:01)
[2022-10-17] MEDS: Ticagrelor 90 MG TABLET PO ×2 (10:02→20:28)
[2022-10-17] MEDS: amLODIPine Besylate 2.5 MG TABLET PO (11:26)
[2022-10-17] MEDS: risperiDONE 0.5 MG TABLET PO (11:27)
[2022-10-17] MEDS: Metoprolol Succinate ER 25 MG TAB.ER.24H PO (11:27)
[2022-10-17 11:28] VITALS: BP 176/73; PULSE 99; TEMP 36.3; O2SAT 98
--- NOTE | 2022-10-17 11:46 | PC.NURSE ---
Patient was paranoid this am and perseverant on going home. Pt refused VS and medications initially. Pts brother in to visit so pt was approached with medications and VS. Pt was cooperative with brothers verbal cuing. Pt remains focused on leaving, A&O X 2.
[2022-10-17 12:35] LABS: Alanine Aminotransferase 25 U/L (0-40); Albumin Level 4.7 g/dL (3.5-5.0); Alkaline Phosphatase 93 U/L (39-117); Anion Gap 17 (12-20); Aspartate Amino Transferase 33 U/L (5-37); Bilirubin Total 0.6 mg/dL (0.0-1.0); Carbon Dioxide 22 mmol/L (22-29); Chloride 101 mmol/L (96-108); Cholesterol 137 mg/dL; Creatinine Clr Calc Pharmacy 78.9; Estimated Glomerular Filt Rate > 60; Glucose Fasting 139 mg/dL (60-99); HDL Cholesterol 29 mg/dL; LDL Cholesterol Calculated 92 mg/dl; Potassium 3.4 mmol/L (3.3-5.1); Sodium 137 mmol/L (135-145); Total Protein 8.3 g/dL (6.5-8.0); Triglycerides 81 mg/dL
[2022-10-17 12:37] LABS: Estimated Average Glucose 91 mg/dL; Hemoglobin A1c % 4.8 %
[2022-10-17 12:51] LABS: Blood Urea Nitrogen 28 mg/dL (9-16)
[2022-10-17] MEDS: hydrOXYzine HCL 25 MG TABLET PO (16:15)
[2022-10-17 20:15] VITALS: BP 125/85; PULSE 111; RESP 18; TEMP 36.6; O2SAT 98
[2022-10-17] MEDS: traZODone HCL 100 MG TABLET PO (20:28)
[2022-10-17] MEDS: risperiDONE 3 MG TABLET PO (20:28)
[2022-10-17] MEDS: Benztropine Mesylate 1 MG TABLET PO (20:28)
[2022-10-17] MEDS: Mirtazapine 15 MG TABLET PO (20:28)
[2022-10-18 06:00] VITALS: BP 126/78; PULSE 88; RESP 16; TEMP 37.2; O2SAT 96
[2022-10-18] MEDS: Metoprolol Succinate ER 25 MG TAB.ER.24H PO (09:21)
[2022-10-18] MEDS: amLODIPine Besylate 2.5 MG TABLET PO (09:21)
[2022-10-18] MEDS: Ezetimibe 10 MG TABLET PO (09:22)
[2022-10-18] MEDS: clonazePAM 0.5 MG TABLET PO ×2 (09:22→20:55)
[2022-10-18] MEDS: Ticagrelor 90 MG TABLET PO ×2 (09:23→20:55)
--- NOTE | 2022-10-18 11:48 | HO.PSYCHPN ---
Subjective Subjective Date of Service: 10/18/22 Reason For Visit: SI Subjective Notes: Section 12B Interim History: Pt reports doing well and asking this account underwriter if he can go home. He denies any concerns. He states he is here because his brother told him so. He denies SI/HI. speech with some loose association but this appears to be baseline, underlying cognitive impairment. This account underwriter spoke with brother who denies any safety concerns in terms of aggression towards self or others. This account underwriter explained that given that there is no imminent safety concern pt can resume tx OP. Brother in agreement. Review of Systems Review of Systems Yes Unobtainable due to mental condition and Unobtainable due to mental status Denies Sensory deficit (Neuro) Mental Status Exam Mental Status Exam Narrative: Appearance: thin, wearing hospital gown, malnourish, in NAD, pacing appears suspicious and guarded at times Behavior: minimally engaging Speech: mumbles at times, some delay in response but not significant, minimally spontaneous TP: poverty of thought TC: wanting to go Mood: good Affect: constricted and paranoid SI: denies HI: denies VH/AH: denies but appears internally preoccupied. Delusions, no overt delusions reported but appears guarded, following pt, suspicious Insight/judgment: limited x 2. Diagnostics Vital Signs (24Hr): Vital Signs - 24 hr 10/18/22 20:50 Temperature 98.1 F Pulse Rate 103 H Respiratory Rate 16 Blood Pressure 130/86 Pulse Oximetry 98 Oxygen Delivery Method Room Air BMI result Body Mass Index 22.4 Labs Results: 10/16/22 11:40 10/17/22 11:28 Labs: Laboratory Results - last 48 hr 10/16/22 10/17/22 10/17/22 11:40 11:28 11:28 Smear Path Review SEE NOTE Sodium 137 Potassium 3.4 Chloride 101 Carbon Dioxide 22 Anion Gap 17 BUN 28 H D Creatinine 0.94 Estim Creat Clear Calc 78.9 Estimated GFR > 60 Fasting Glucose 139 H Estimat Average Glucose 91 Hemoglobin A1c % 4.8 Calcium 10.0 Total Bilirubin 0.6 AST 33 ALT 25 Alkaline Phosphatase 93 Total Protein 8.3 H Albumin 4.7 Triglycerides 81 Cholesterol 137 LDL Cholesterol, Calc 92 HDL Cholesterol 29 Medications Medications Current Medications Acetaminophen (Acetaminophen 325 Mg Tablet) 650 mg PO Q6H PRN PRN Reason: Headache/Pain Mild Scale (1-3) Al Hydroxide/Mg Hydroxide (Magnesium Hydrox/Alum Hydrox 30 Ml Oral.Susp) 30 ml PO Q6H PRN PRN Reason: Heartburn/Nausea Albuterol Sulfate (Albuterol Sulfate 90 Mcg 8 Gm Inhaler) 2 puff INHALE Q4H PRN PRN Reason: Wheezing Amlodipine Besylate (Amlodipine Besylate 2.5 Mg Tablet) 2.5 mg PO DAILY [facility]; Protocol Last Admin: 10/18/22 09:21 Dose: 2.5 mg Aspirin (Aspirin Enteric Coated 81 Mg Tablet.Dr) 81 mg PO DAILY [facility] Last Admin: 10/18/22 09:25 Dose: Not Given Benztropine Mesylate (Benztropine Mesylate 1 Mg Tablet) 1 mg PO BEDTIME [facility] Last Admin: 10/18/22 20:55 Dose: 1 mg Clonazepam (Clonazepam 0.5 Mg Tablet) 0.5 mg PO BID [facility] Last Admin: 10/18/22 20:55 Dose: 0.5 mg Ezetimibe (Ezetimibe 10 Mg Tablet) 10 mg PO DAILY [facility] Last Admin: 10/18/22 09:22 Dose: 10 mg Hydroxyzine HCl (Hydroxyzine Hcl 25 Mg Tablet) 25 mg PO Q6H PRN PRN Reason: Anxiety Last Admin: 10/18/22 20:55 Dose: 25 mg Magnesium Hydroxide (Milk Of Magnesia 30 Ml Oral.Susp) 30 ml PO DAILY PRN PRN Reason: Constipation Metoprolol Succinate (Metoprolol Succinate Er 25 Mg Tab.Er.24h) 25 mg PO DAILY [facility]; Protocol Last Admin: 10/18/22 09:21 Dose: 25 mg Mirtazapine (Mirtazapine 15 Mg Tablet) 15 mg PO BEDTIME [facility] Last Admin: 10/18/22 20:55 Dose: 15 mg Pharmacy Consult (Consult Rx Perform Med Rec) 1 each MISCELLANE ONCE PRN PRN Reason: Consult order Risperidone (Risperidone 0.5 Mg Tablet) 0.5 mg PO DAILY [facility] Last Admin: 10/18/22 09:26 Dose: Not Given Risperidone (Risperidone 3 Mg Tablet) 3 mg PO BEDTIME [facility] Last Admin: 10/18/22 20:55 Dose: 3 mg Ticagrelor (Ticagrelor 90 Mg Tablet) 90 mg PO BID [facility] Last Admin: 10/18/22 20:55 Dose: 90 mg Trazodone HCl (Trazodone Hcl 100 Mg Tablet) 100 mg PO BEDTIME [facility] Last Admin: 10/18/22 20:55 Dose: 100 mg Trazodone HCl (Trazodone Hcl 50 Mg Tablet) 50 mg PO BEDTIME PRN PRN Reason: Insomnia Allergies Allergies Allergy/AdvReac Type Severity Reaction Status Date / Time acetaminophen Allergy Unknown PANADOL = Verified 10/01/22 14:48 ACETAMINOPHEN SHELLFISH Allergy Mild PATIENT Uncoded 10/01/22 14:48 REPORTS BURNING SENSATION THROUGHOUT OPIATES Allergy Unknown BECAME Uncoded 10/01/22 14:48 ADDICTED PANADOL Allergy Unknown UNKNOWN Uncoded 10/01/22 14:48 Assessment & Plan Assessment & Plan (1) Chronic schizophrenia: Status: Acute Code(s): F20.9 - Schizophrenia, unspecified Plan Mr. Morillo is a 57 year-old male with hx of schizophrenia brought in to [facility] ED by brother who reports pt more paranoid towards police. Here on the unit, pt denies any concerns and asks if he can be discharged home. Utox negative. PLAN 1. admit to M3, sect 12b. 15 mins check 2. continue medications 3. obtain collateral information 4. aftercare planning. 10/18 d/c tomorrow. I spent minutes with the patient and/or on the patient floor today, greater than?50% of which was spent counseling/coordinating care. Reason for contiued inpatient stay Substantial Risk for: stable for discharge
[2022-10-18 20:50] VITALS: BP 130/86; PULSE 103; RESP 16; TEMP 36.7; O2SAT 98
[2022-10-18] MEDS: risperiDONE 3 MG TABLET PO (20:55)
[2022-10-18] MEDS: hydrOXYzine HCL 25 MG TABLET PO (20:55)
[2022-10-18] MEDS: Mirtazapine 15 MG TABLET PO (20:55)
[2022-10-18] MEDS: Benztropine Mesylate 1 MG TABLET PO (20:55)
[2022-10-18] MEDS: traZODone HCL 100 MG TABLET PO (20:55)
[2022-10-19 06:00] VITALS: BP 108/53; PULSE 96; RESP 18; TEMP 37.1; O2SAT 96
--- NOTE | 2022-10-19 07:58 | P.DS_ITS ---
DS: Providers Provider Date of Service: 10/19/22 Date of admission: 10/16/22 17:25 Primary care physician: [facility] DS: Diagnosis Discharge Diagnosis (1) Chronic schizophrenia: Status: Inactive DS: Medications Discharge Medications Home Medications: Home Medications Medication Instructions Recorded Confirmed aspirin 81 mg tablet 81 mg PO DAILY 06/11/21 10/16/22 benztropine 1 mg tablet 1 mg PO BEDTIME 06/11/21 10/16/22 clonazepam 0.5 mg tablet 0.5 mg PO BID 06/11/21 10/16/22 risperidone 0.5 mg tablet 0.5 mg PO DAILY 06/11/21 10/16/22 risperidone 3 mg tablet 3 mg PO BEDTIME 06/11/21 10/16/22 ticagrelor 90 mg tablet (Brilinta) 90 mg PO BID 06/11/21 10/16/22 trazodone 100 mg tablet 100 mg PO BEDTIME 06/11/21 10/16/22 metoprolol succinate 25 mg 1 tab PO DAILY 06/12/21 10/16/22 tablet,extended release 24 hr albuterol sulfate 90 mcg/actuation 2 puff inhalation Q4H PRN Wheezing 10/16/22 10/16/22 aerosol inhaler (ProAir HFA) Previous Rx's Medication Instructions Recorded amlodipine 2.5 mg tablet 2.5 mg PO DAILY #90 tabs 12/22/21 ezetimibe 10 mg tablet (Zetia) 10 mg PO DAILY 90 days #90 tabs 03/26/22 mirtazapine 15 mg tablet 15 mg PO BEDTIME #30 tabs 10/19/22 Mental Status Exam Mental Status Exam Narrative: Appearance: thin, wearing hospital gown, malnourish, in NAD, pacing appears suspicious and guarded at times Behavior: minimally engaging Speech: mumbles at times, some delay in response but not significant, minimally spontaneous TP: poverty of thought TC: wanting to go Mood: good Affect: constricted and paranoid SI: denies HI: denies VH/AH: denies but appears internally preoccupied. Delusions, no overt delusions reported but appears guarded, following pt, suspicious Insight/judgment: limited x 2. Data Data Completed and Pending Completed studies during hospitalization [Text1]: 10/15/22 10/15/22 10/15/22 10:17 11:27 11:27 WBC 9.2 RBC 4.98 Hgb 9.0 L Hct 31.3 L MCV 62.9 L MCH 18.1 L MCHC 28.8 L RDW 22.7 H Plt Count 390 MPV 9.4 Immature Gran % (Auto) 0.3 Neut % (Auto) 80.4 H Lymph % (Auto) 10.8 L Lassen % (Auto) 8.1 Eos % (Auto) 0.2 Baso % (Auto) 0.2 Lymph # (Auto) 1.0 L Lassen # (Auto) 0.8 Eos # (Auto) 0.0 Baso # (Auto) 0.0 Abs Immat Gran (auto) 0.03 Absolute Neuts (auto) 7.4 Absolute Nucleated RBC 0.000 Nucleated RBC % (auto) 0.0 Smear Tech's Comments VERIFIED Smear Path Review Sodium 139 Potassium 3.3 Chloride 103 Carbon Dioxide 24 Anion Gap 15 BUN 14 Creatinine 0.76 Estim Creat Clear Calc 99.1 Estimated GFR > 60 POC Glucose 142 H Random Glucose 70 D Fasting Glucose Estimat Average Glucose Hemoglobin A1c % Calcium 10.0 Total Bilirubin 0.5 AST 32 ALT 24 Alkaline Phosphatase 87 Total Protein 8.1 H Albumin 4.7 Triglycerides Cholesterol LDL Cholesterol, Calc HDL Cholesterol Urine Color Urine Appearance Urine pH Ur Specific [place] Urine Protein Urine Glucose (UA) Urine Ketones Urine Blood Urine Nitrite Ur Leukocyte Esterase Urine RBC Urine WBC Ur Squamous Epith Cells Urine Bacteria Hyaline Casts Urine Opiates Screen Urine Fentanyl Screen Ur Barbiturates Screen Ur Phencyclidine Scrn Ur Amphetamines Screen U Benzodiazepines Scrn Urine Cocaine Screen U Marijuana (THC) Screen Ethyl Alcohol COVID-19 (VITO) COVID-19 Clin Com 10/15/22 10/15/22 10/15/22 11:27 17:07 17:48 WBC RBC Hgb Hct MCV MCH MCHC RDW Plt Count MPV Immature Gran % (Auto) Neut % (Auto) Lymph % (Auto) Lassen % (Auto) Eos % (Auto) Baso % (Auto) Lymph # (Auto) Lassen # (Auto) Eos # (Auto) Baso # (Auto) Abs Immat Gran (auto) Absolute Neuts (auto) Absolute Nucleated RBC Nucleated RBC % (auto) Smear Tech's Comments Smear Path Review Sodium Potassium Chloride Carbon Dioxide Anion Gap BUN Creatinine Estim Creat Clear Calc Estimated GFR POC Glucose Random Glucose Fasting Glucose Estimat Average Glucose Hemoglobin A1c % Calcium Total Bilirubin AST ALT Alkaline Phosphatase Total Protein Albumin Triglycerides Cholesterol LDL Cholesterol, Calc HDL Cholesterol Urine Color Urine Appearance Urine pH Ur Specific [place] Urine Protein Urine Glucose (UA) Urine Ketones Urine Blood Urine Nitrite Ur Leukocyte Esterase Urine RBC Urine WBC Ur Squamous Epith Cells Urine Bacteria Hyaline Casts Urine Opiates Screen Not Detected Urine Fentanyl Screen Not Detected Ur Barbiturates Screen Not Detected Ur Phencyclidine Scrn Not Detected Ur Amphetamines Screen Not Detected U Benzodiazepines Scrn POSITIVE H Urine Cocaine Screen Not Detected U Marijuana (THC) Screen POSITIVE H Ethyl Alcohol < 10 COVID-19 (VITO) Negative COVID-19 Clin Com See Note 10/15/22 10/16/22 10/17/22 17:48 11:40 11:28 WBC 11.3 H RBC 5.58 Hgb 9.9 L Hct 34.8 L MCV 62.4 L MCH 17.7 L MCHC 28.4 L RDW 22.9 H Plt Count 501 H D MPV 9.1 L Immature Gran % (Auto) 0.4 Neut % (Auto) 76.9 H Lymph % (Auto) 11.8 L Lassen % (Auto) 10.3 Eos % (Auto) 0.2 Baso % (Auto) 0.4 Lymph # (Auto) 1.3 Lassen # (Auto) 1.2 Eos # (Auto) 0.0 Baso # (Auto) 0.0 Abs Immat Gran (auto) 0.04 H Absolute Neuts (auto) 8.7 H Absolute Nucleated RBC 0.000 Nucleated RBC % (auto) 0.0 Smear Tech's Comments Smear Path Review SEE NOTE Sodium 137 Potassium 3.4 Chloride 101 Carbon Dioxide 22 Anion Gap 17 BUN 28 H D Creatinine 0.94 Estim Creat Clear Calc 78.9 Estimated GFR > 60 POC Glucose Random Glucose Fasting Glucose 139 H Estimat Average Glucose Hemoglobin A1c % Calcium 10.0 Total Bilirubin 0.6 AST 33 ALT 25 Alkaline Phosphatase 93 Total Protein 8.3 H Albumin 4.7 Triglycerides 81 Cholesterol 137 LDL Cholesterol, Calc 92 HDL Cholesterol 29 Urine Color Yellow Urine Appearance Clear Urine pH 5.5 Ur Specific P[place] 1.025 Urine Protein 30 (1+) H Urine Glucose (UA) Negative Urine Ketones 80 Urine Blood Trace H Urine Nitrite Negative Ur Leukocyte Esterase Negative Urine RBC 11-20 H Urine WBC 6-10 H Ur Squamous Epith Cells 0-2 Urine Bacteria None Seen Hyaline Casts 3-5 Urine Opiates Screen Urine Fentanyl Screen Ur Barbiturates Screen Ur Phencyclidine Scrn Ur Amphetamines Screen U Benzodiazepines Scrn Urine Cocaine Screen U Marijuana (THC) Screen Ethyl Alcohol COVID-19 (VITO) COVID-19 Clin Com 10/17/22 11:28 WBC RBC Hgb Hct MCV MCH MCHC RDW Plt Count MPV Immature Gran % (Auto) Neut % (Auto) Lymph % (Auto) Lassen % (Auto) Eos % (Auto) Baso % (Auto) Lymph # (Auto) Lassen # (Auto) Eos # (Auto) Baso # (Auto) Abs Immat Gran (auto) Absolute Neuts (auto) Absolute Nucleated RBC Nucleated RBC % (auto) Smear Tech's Comments Smear Path Review Sodium Potassium Chloride Carbon Dioxide Anion Gap BUN Creatinine Estim Creat Clear Calc Estimated GFR POC Glucose Random Glucose Fasting Glucose Estimat Average Glucose 91 Hemoglobin A1c % 4.8 Calcium Total Bilirubin AST ALT Alkaline Phosphatase Total Protein Albumin Triglycerides Cholesterol LDL Cholesterol, Calc HDL Cholesterol Urine Color Urine Appearance Urine pH Ur Specific [place] Urine Protein Urine Glucose (UA) Urine Ketones Urine Blood Urine Nitrite Ur Leukocyte Esterase Urine RBC Urine WBC Ur Squamous Epith Cells Urine Bacteria Hyaline Casts Urine Opiates Screen Urine Fentanyl Screen Ur Barbiturates Screen Ur Phencyclidine Scrn Ur Amphetamines Screen U Benzodiazepines Scrn Urine Cocaine Screen U Marijuana (THC) Screen Ethyl Alcohol COVID-19 (VITO) COVID-19 Clin Com 10/15/22 Unknown Urine clean catch - Urine jenkins top Urine Culture - Final No growth. DS: Summary Hospital Course Hospital Course: Mr. 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 Utox is negative. CBC with elevated WBC 22 and microcytic anemia, but repeat CBC WBC wnl. Pt apparently denied occult blood test on stool. On the unit, pt reports he does not know why he is here. He states his brother told him to get better and he states I am better. He denies suicidal or homicidal ideation. He asks if he can return home. When asked in what way he feels better he continues to ask if he can return home. His speech is with loose association. He does have underlying cognitive impairments. Per brother, pt was more paranoid about police. Brother denies any safety concern in terms of suicidal or homicidal ideation. He reports pt at times does not take medications as prescribed. Past Psychiatric History: INpt: multiple in the past.? OP: Dr. Jordan Lee Past med trials: risperidone Medical Evaluation Reviewed: Yes microcitic anemia, elevated platelets. HOSPITAL COURSE On the unit, pt presented as calm and cooperative. It is evident some degree of cognitive impairment and pt presented as poor historian. His brother is main caregiver. Most information was gathered from the brother who reports pt had reported AH, but did not show any signs of aggression towards self or others. On the unit, pt was visible on the unit, social with select peers. There were no incidences of disruptive behaviors nor need for restraint. Pt continued to ask to leave and given that there was no imminent safety concerns, pt was discharged back to his family. His brother was informed and in agreement with plan and denied any safety concerns. This race and sports book writer discussed with brother that pt does not appear to have capacity to make medical decisions. Pt showing signs of anemia with possibility of active bleeding but declined any further medical exam without showing any signs of understanding medical information or appreciation of risks versus benefits. This race and sports book writer encouraged to look into guardianship in the community and brother expressed understanding. Status at Discharge Cognitive/behavioral status at discharge: Pt with bright, non labile affect. No SI/HI. Less AH. no overt delusional con tent noted or reported, although some paranoia noted- but this is baseline. Pt sleeping and eating well. No signs of aggression towards self or others. Functional status at discharge: independent ambulation Overall status at discharge: patient is progressing back to baseline Time Spent with Patient Time attestation: Total time spent providing and/or coordinating discharge services: Time spent: Greater than 30 minutes Discharge Plan Discharge Anticipated Discharge Date/Time: 10/19/22 07:53 Patient Disposition: Home, Self-Care Discharge Diagnosis: schizophrenia Referrals: Therapist [Other] - 1 Week (Por favor, gabrielle un seguimiento con el proveedor para rangel germania. ) Medication Provider: Jordan Bishop [Other] - 1 Week (Por favor, gabrielle un seguimiento con el proveedor para rangel germania. ) [facility] [Primary Care Provider] - 1 Week (walk in hours saturday through saturday 830am to 4pm) Discharge Medications: New mirtazapine 15 mg Tablet 15 mg PO BEDTIME Qty: 30 0RF Continued amlodipine 2.5 mg tablet 2.5 mg PO DAILY Qty: 90 3RF ezetimibe [Zetia] 10 mg tablet 10 mg PO DAILY 90 Days Qty: 90 3RF clonazepam 0.5 mg Tablet 0.5 mg PO BID risperidone 3 mg Tablet 3 mg PO BEDTIME trazodone 100 mg Tablet 100 mg PO BEDTIME benztropine 1 mg Tablet 1 mg PO BEDTIME aspirin 81 mg Tablet 81 mg PO DAILY risperidone 0.5 mg Tablet 0.5 mg PO DAILY metoprolol succinate 25 mg tablet extended release 24 hr 1 tab PO DAILY albuterol sulfate [ProAir HFA] 90 mcg/actuation HFA aerosol inhaler 2 puff inhalation Q4H PRN (Reason: Wheezing) Discontinued mirtazapine 30 mg Tablet 30 mg PO BEDTIME No Action omeprazole 20 mg Capsule,Delayed Release(Dr/Ec) 20 mg PO DAILY@0630 Qty: 30 0RF ferrous sulfate 325 mg (65 mg iron) tablet,delayed release (DR/EC) 325 mg PO BID Qty: 60 0RF ferrous sulfate 325 mg (65 mg iron) tablet,delayed release (DR/EC) 325 mg PO DAILY Discharge Orders: Discharge Order (Routine); Ordered 10/19/22 Ordered By: Georgette Estrella Diet: Regular diet Activity on Discharge: As tolerated Stand Alone Forms: Patient Portal Discharge page, Community Support Care Plan Goals: 1. Maintain mood 2. No SI/HI 3. Less paranoia Health Concerns: Follow up with PCP- re: anemia, elevated platelets Plan of Treatment: 1. take medications as prescribed 2. go to nearest ED in event of emergency Assessment: Pt suspicious but pleasant. denies SI/HI/VH/AH. No aggression towards self or others. Discharge Date/Time: 10/19/22 11:02
[2022-10-19] MEDS: Ticagrelor 90 MG TABLET PO (09:51)
[2022-10-19] MEDS: clonazePAM 0.5 MG TABLET PO (09:51)
[2022-10-19] MEDS: Metoprolol Succinate ER 25 MG TAB.ER.24H PO (09:52)
[2022-10-19] MEDS: risperiDONE 0.5 MG TABLET PO (09:52)
[2022-10-19] MEDS: amLODIPine Besylate 2.5 MG TABLET PO (09:52)
[2022-10-19] MEDS: Aspirin Enteric Coated 81 MG TABLET.DR PO (09:52)
[2022-10-19] MEDS: Ezetimibe 10 MG TABLET PO (09:52)
--- NOTE | 2022-10-19 10:43 | PC.NURSE ---
Uche is alert and cooperative with discharge process. He denies ideation, plan or intent to harm self or others. He is discharged with full written instructions regarding meds and appointments to the care of family.
== END 2022-10-19 11:02 | disposition home or self-care (01) | DRG 750 ==
LOC: HO.ED 10-16 10:28 → HO.PADLT16 10-16 18:21
PROVIDERS: Internal Medicine; Physician Assistant; Admitting Provider Social Worker; Emergency Provider Emergency Medicine; Visit Provider Social Worker
DX: F20.9 Schizophrenia, unspecified (principal); I10 Essential (primary) hypertension; Z87.891 Personal history of nicotine dependence; Z91.013 Allergy to seafood; Z88.5 Allergy status to narcotic agent; Z88.6 Allergy status to analgesic agent; Z79.899 Other long term (current) drug therapy
CPT/HCPCS: 36415; 80053; 80061; 80307; 81001; 82077; 82947; 83036; 85025; 87086; 87635; 93005; 99285; J2250

== ENCOUNTER 2022-10-29 10:32 | Inpatient (IN) | payer MEDICAID, SELFPAY ==
[2022-10-29 10:44] VITALS: BP 115/71; PULSE 142; RESP 18; TEMP 36.2; O2SAT 99; BMI 26.3
--- NOTE | 2022-10-29 11:22 | ED.RECABL ---
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 The patient is here with his [facility] worker who fought to get him here. He is a terrible historian and confused at baseline. complaint: abnormal lab Initial visit (ago): day(s) (5) Initial visit for: other (follow up anemia) Returns today for: called because of abnormal lab/test Symptoms since prior visit: no new symptoms Context: called for abnormal lab result Associated symptoms: none Related Data Home Medications Medication Instructions Recorded Confirmed aspirin 81 mg tablet 81 mg PO DAILY 06/11/21 10/29/22 benztropine 1 mg tablet 1 mg PO BEDTIME 06/11/21 10/29/22 clonazepam 0.5 mg tablet 0.5 mg PO BID 06/11/21 10/29/22 risperidone 0.5 mg tablet 0.5 mg PO DAILY 06/11/21 10/29/22 risperidone 3 mg tablet 3 mg PO BEDTIME 06/11/21 10/29/22 ticagrelor 90 mg tablet (Brilinta) 90 mg PO BID 06/11/21 10/29/22 trazodone 100 mg tablet 100 mg PO BEDTIME 06/11/21 10/29/22 metoprolol succinate 25 mg 1 tab PO DAILY 06/12/21 10/29/22 tablet,extended release 24 hr albuterol sulfate 90 mcg/actuation 2 puff inhalation Q4H PRN Wheezing 10/16/22 10/29/22 aerosol inhaler (ProAir HFA) Previous Rx's Medication Instructions Recorded amlodipine 2.5 mg tablet 2.5 mg PO DAILY #90 tabs 12/22/21 ezetimibe 10 mg tablet (Zetia) 10 mg PO DAILY 90 days #90 tabs 03/26/22 mirtazapine 15 mg tablet 15 mg PO BEDTIME #30 tabs 10/19/22 Allergies Allergy/AdvReac Type Severity Reaction Status Date / Time acetaminophen Allergy Unknown PANADOL = Verified 10/29/22 10:44 ACETAMINOPHEN SHELLFISH Allergy Mild PATIENT Uncoded 10/01/22 14:48 REPORTS BURNING SENSATION THROUGHOUT OPIATES Allergy Unknown BECAME Uncoded 10/01/22 14:48 ADDICTED PANADOL Allergy Unknown UNKNOWN Uncoded 10/01/22 14:48 Review of Systems Review of Systems: ROS unable to be obtained due to poor historian PMFSH Past Medical History Attestation statement: The following information was validated with the patient. Medical History Hypertension Schizoaffective disorder Surgical History History of hernia repair Family History Family History Father Edema Mother Developmental delay Social History Social History Household Members: Family Housing: Apartment Do you presently have visiting nurse or other home services: Yes Alcohol intake: never Patient Tobacco Use Status: Former Tobacco user Tobacco use type: Cigarette Cigarette Packs Per Day: 1 Cigarettes Per Day: 20 Years Smoked: 30 +/- Smoked in Last 30 Days: No e-Cigarette/Vaping Use: Never Used Use of substances other than those prescribed or required for medical reasons: No Substance Use Type: Marijuana Advance Directives: No Advance Directives Information Provided: Yes service: No Sexual orientation: Don't Know Physical Exam Vital Signs: Vital Signs: Last Vital Signs Temp 98.4 F 10/29/22 14:16 Pulse 82 10/29/22 14:16 Resp 14 10/29/22 14:16 BP 96/55 L 10/29/22 14:16 Pulse Ox 100 10/29/22 14:16 O2 Del Method 10/29/22 10:44 BMI result Body Mass Index 26.3 Appearance: Alert. confused at baseline. No acute distress. anxious Eyes: Pupils equal, round and reactive to light. pale sclera ENT: Pharynx normal. Neck: Normal inspection. Neck supple. CVS: tachycardic heart rate and rhythm. Pulses normal. Respiratory: No respiratory distress. Breath sounds normal. Abdomen: Soft and non-tender. Rectal: brown stool Skin: Skin warm and dry. pale skin color. Normal skin turgor. Extremities: No lower extremity edema. No calf ttp Neuro: confused. No motor deficit. No sensory deficit. Course Course Course Narrative: 2014 - EGD gastritis, duodenitis Dr. Koo call to GI 102pm - Dr. Bonilla aware IV versed for anxiety Medications Administered Discontinued Medications Generic Name Dose Route Start Last Admin Trade Name Freq PRN Reason Stop Dose Admin Midazolam HCl 1 mg 10/29/22 13:26 10/29/22 13:42 Midazolam Hcl/Pf 2 Mg/2 Ml Vial IVPUSH 10/29/22 13:27 1 mg ONCE ONE Administration Pantoprazole Sodium 40 mg 10/29/22 11:45 10/29/22 12:22 Pantoprazole Sodium 40 Mg/10 Ml Vial IVPUSH 10/29/22 11:46 40 mg ONCE ONE Administration Medical Decision Making Medical Decision Making [facility] Narrative: 57 yo male with PMH of CAD s/p STEMI with stent 2020 on aspirin and brilinta, asthma, HTN, schizoaffective disorder here with decreasing hemoglobin since September and elevated BUN on aspirin and brilinta - I do not see PPI or H2 jennifer. he is not a reliable historian and no GIB symptoms reported but at this time suspect he has UGIB - will obtain labs, type and screen, start on IV protonix and discuss admission for endoscopy Differential Diagnosis The differential diagnosis associated with the presentation includes (GIB anemia, Fe deficiency) Admission/Observation Consideration of admission/observation: Escalation of care including admission/observation considered (admission for trend in H/H, IV protonix, GI consult, BP stable, HR due to tachycardia will hold off transfusion at this time) Consult Healthcare Provider Management of the patient was discussed with: Hospitalist (plan to admit ) and Manager Special Events (GI will follow along agree with IV PPI) Lab Data [facility] Lab Attestation statement: I reviewed the patient's lab results. Result Diagrams: 10/29/22 11:25 10/29/22 11:25 Labs: Lab Results 10/29/22 10/29/22 10/29/22 Range/Units 11:25 11:25 11:25 WBC 6.4 (4.8-10.8) X10*3/uL RBC 4.53 L (4.60-5.80) X10*6/uL Hgb 8.1 L (14.0-18.0) g/dl Hct 28.5 L (42.0-52.0) % MCV 62.9 L (80.0-98.0) fL MCH 17.9 L (27.0-33.0) pg MCHC 28.4 L (31.0-36.0) g/dl RDW 22.2 H (11.0-16.0) % Plt Count 562 H (160-400) X10*3/uL MPV 9.1 L (9.4-12.4) fL Immature Gran % (Auto) 0.5 H (0.0-0.4) % Neut % (Auto) 79.3 H (45-73) % Lymph % (Auto) 12.1 L (20-40) % [place] % (Auto) 7.1 (2-11) % Eos % (Auto) 0.5 (0-4) % Baso % (Auto) 0.5 (0-2) % Lymph # (Auto) 0.8 L (1.2-4.9) X10*3/uL [place] # (Auto) 0.5 (0.1-1.2) X10*3/uL Eos # (Auto) 0.0 (0.0-0.4) X10*3/uL Baso # (Auto) 0.0 (0.0-0.2) X10*3/uL Abs Immat Gran (auto) 0.03 (0.00-0.03) X10*3/uL Absolute Neuts (auto) 5.1 (2.0-8.3) x10*3/uL Absolute Nucleated RBC 0.000 (0.0-0.012) X10*3/uL Nucleated RBC % (auto) 0.0 (0.0-0.2) /100WBC PT 14.5 H (10.0-13.1) SEC INR 1.3 H (0.9-1.1) Sodium 138 (135-145) mmol/L Potassium 3.4 (3.3-5.1) mmol/L Chloride 104 (96-108) mmol/L Carbon Dioxide 24 (22-29) mmol/L Anion Gap 13 (12-20) BUN 9 (9-16) mg/dL Creatinine 0.75 (0.5-1.4) mg/dL Estim Creat Clear Calc 89.8 Estimated GFR > 60 Random Glucose 144 H (60-115) mg/dL Calcium 9.3 D (8.4-10.2) mg/dL Iron (45-160) mcg/dL TIBC (228-428) mcg/dL % Saturation (15-50) % Unsat Iron Binding ug/dL Total Bilirubin 0.3 (0.0-1.0) mg/dL Direct Bilirubin < 0.2 (0.0-0.5) mg/dL AST 22 (5-37) U/L ALT 24 (0-40) U/L Alkaline Phosphatase 86 (39-117) U/L Total Protein 7.7 (6.5-8.0) g/dL Albumin 4.2 (3.5-5.0) g/dL Vitamin B12 (200-900) pg/mL Folate (> or = 4.0) ng/mL Stool Occult Blood (NEGATIVE) COVID-19 (VITO) (Negative) COVID-19 Clin Com Blood Type Antibody Screen 10/29/22 10/29/22 10/29/22 Range/Units 11:53 11:53 11:53 WBC (4.8-10.8) X10*3/uL RBC (4.60-5.80) X10*6/uL Hgb (14.0-18.0) g/dl Hct (42.0-52.0) % MCV (80.0-98.0) fL MCH (27.0-33.0) pg MCHC (31.0-36.0) g/dl RDW (11.0-16.0) % Plt Count (160-400) X10*3/uL MPV (9.4-12.4) fL Immature Gran % (Auto) (0.0-0.4) % Neut % (Auto) (45-73) % Lymph % (Auto) (20-40) % [place] % (Auto) (2-11) % Eos % (Auto) (0-4) % Baso % (Auto) (0-2) % Lymph # (Auto) (1.2-4.9) X10*3/uL [place] # (Auto) (0.1-1.2) X10*3/uL Eos # (Auto) (0.0-0.4) X10*3/uL Baso # (Auto) (0.0-0.2) X10*3/uL Abs Immat Gran (auto) (0.00-0.03) X10*3/uL Absolute Neuts (auto) (2.0-8.3) x10*3/uL Absolute Nucleated RBC (0.0-0.012) X10*3/uL Nucleated RBC % (auto) (0.0-0.2) /100WBC PT (10.0-13.1) SEC INR (0.9-1.1) Sodium (135-145) mmol/L Potassium (3.3-5.1) mmol/L Chloride (96-108) mmol/L Carbon Dioxide (22-29) mmol/L Anion Gap (12-20) BUN (9-16) mg/dL Creatinine (0.5-1.4) mg/dL Estim Creat Clear Calc Estimated GFR Random Glucose (60-115) mg/dL Calcium (8.4-10.2) mg/dL Iron 8 L (45-160) mcg/dL TIBC 345 (228-428) mcg/dL % Saturation 2 L (15-50) % Unsat Iron Binding 337 ug/dL Total Bilirubin (0.0-1.0) mg/dL Direct Bilirubin (0.0-0.5) mg/dL AST (5-37) U/L ALT (0-40) U/L Alkaline Phosphatase (39-117) U/L Total Protein (6.5-8.0) g/dL Albumin (3.5-5.0) g/dL Vitamin B12 475 (200-900) pg/mL Folate 11.1 (> or = 4.0) ng/mL Stool Occult Blood (NEGATIVE) COVID-19 (VITO) (Negative) COVID-19 Clin Com Blood Type A Positive Antibody Screen NEGATIVE 10/29/22 10/29/22 Range/Units 11:55 11:56 WBC (4.8-10.8) X10*3/uL RBC (4.60-5.80) X10*6/uL Hgb (14.0-18.0) g/dl Hct (42.0-52.0) % MCV (80.0-98.0) fL MCH (27.0-33.0) pg MCHC (31.0-36.0) g/dl RDW (11.0-16.0) % Plt Count (160-400) X10*3/uL MPV (9.4-12.4) fL Immature Gran % (Auto) (0.0-0.4) % Neut % (Auto) (45-73) % Lymph % (Auto) (20-40) % [place] % (Auto) (2-11) % Eos % (Auto) (0-4) % Baso % (Auto) (0-2) % Lymph # (Auto) (1.2-4.9) X10*3/uL [place] # (Auto) (0.1-1.2) X10*3/uL Eos # (Auto) (0.0-0.4) X10*3/uL Baso # (Auto) (0.0-0.2) X10*3/uL Abs Immat Gran (auto) (0.00-0.03) X10*3/uL Absolute Neuts (auto) (2.0-8.3) x10*3/uL Absolute Nucleated RBC (0.0-0.012) X10*3/uL Nucleated RBC % (auto) (0.0-0.2) /100WBC PT (10.0-13.1) SEC INR (0.9-1.1) Sodium (135-145) mmol/L Potassium (3.3-5.1) mmol/L Chloride (96-108) mmol/L Carbon Dioxide (22-29) mmol/L Anion Gap (12-20) BUN (9-16) mg/dL Creatinine (0.5-1.4) mg/dL Estim Creat Clear Calc Estimated GFR Random Glucose (60-115) mg/dL Calcium (8.4-10.2) mg/dL Iron (45-160) mcg/dL TIBC (228-428) mcg/dL % Saturation (15-50) % Unsat Iron Binding ug/dL Total Bilirubin (0.0-1.0) mg/dL Direct Bilirubin (0.0-0.5) mg/dL AST (5-37) U/L ALT (0-40) U/L Alkaline Phosphatase (39-117) U/L Total Protein (6.5-8.0) g/dL Albumin (3.5-5.0) g/dL Vitamin B12 (200-900) pg/mL Folate (> or = 4.0) ng/mL Stool Occult Blood POSITIVE (NEGATIVE) COVID-19 (VITO) Negative (Negative) COVID-19 Clin Com See Note Blood Type Antibody Screen Independent Historian Clinical information obtained from an independent historian. History obtained from or confirmed by: Other ([place] correctional case records supervisor) External Record Review External record reviewed: Inpatient record Chronic Conditions Patient?s care impacted by: Other (schizophrenia and poor understanding) Social Determinants Patient?s care significantly limited by Social Determinants of Health including: Other Social Determinant of Health Discharge Plan Discharge Clinical Impression: Occult blood positive stool Anemia Qualifiers: Anemia type: unspecified type Qualified Code(s): D64.9 - Anemia, unspecified Patient Disposition: Admitted As Inpatient
[2022-10-29 11:33] LABS: MANUAL DIFF FLAG NO
[2022-10-29 11:38] LABS: Basophils Percent Auto 0.5 % (0-2); Eosinophils Percent Auto 0.5 % (0-4); Hematocrit 28.5 % (42.0-52.0); Hemoglobin 8.1 g/dl (14.0-18.0); Imm Gran Abs Auto 0.03 X10*3/uL (0.00-0.03); Imm Gran Pct Auto 0.5 % (0.0-0.4); Lymphocytes Absolute Auto 0.8 X10*3/uL (1.2-4.9); Lymphocytes Percent Auto 12.1 % (20-40); Mean Corpuscular HGB Conc 28.4 g/dl (31.0-36.0); Mean Corpuscular Hemoglobin 17.9 pg (27.0-33.0); Mean Platelet Volume 9.1 fL (9.4-12.4); Monocytes Absolute Auto 0.5 X10*3/uL (0.1-1.2); Monocytes Percent Auto 7.1 % (2-11); Neutrophils Absolute Auto 5.1 x10*3/uL (2.0-8.3); Neutrophils Percent Auto 79.3 % (45-73); Platelet Count 562 X10*3/uL (160-400); Red Blood Count 4.53 X10*6/uL (4.60-5.80); Red Cell Distribution Width 22.2 % (11.0-16.0); White Blood Count 6.4 X10*3/uL (4.8-10.8)
[2022-10-29 11:39] LABS: Mean Corpuscular Volume 62.9 fL (80.0-98.0)
[2022-10-29 11:40] LABS: INTERNATIONAL NORM RATIO 1.3 (0.9-1.1); Prothrombin Time 14.5 SEC (10.0-13.1)
[2022-10-29 11:52] LABS: Alanine Aminotransferase 24 U/L (0-40); Albumin Level 4.2 g/dL (3.5-5.0); Alkaline Phosphatase 86 U/L (39-117); Anion Gap 13 (12-20); Aspartate Amino Transferase 22 U/L (5-37); Bilirubin Direct < 0.2 mg/dL (0.0-0.5); Bilirubin Total 0.3 mg/dL (0.0-1.0); Blood Urea Nitrogen 9 mg/dL (9-16); Calcium 9.3 mg/dL (8.4-10.2); Carbon Dioxide 24 mmol/L (22-29); Chloride 104 mmol/L (96-108); Creatinine Clr Calc Pharmacy 89.8; Estimated Glomerular Filt Rate > 60; Glucose Random 144 mg/dL (60-115); Potassium 3.4 mmol/L (3.3-5.1); Sodium 138 mmol/L (135-145); Total Protein 7.7 g/dL (6.5-8.0)
[2022-10-29 12:02] LABS: OBS Int Ctl Valid YES; OBS1 POSITIVE (NEGATIVE)
[2022-10-29 12:15] LABS: COVID-19 Test Negative (Negative); IDNOW Serial# 16C4AD1C
[2022-10-29 12:21] LABS: Iron 8 mcg/dL (45-160); Percent Iron Saturation 2 % (15-50); Total Iron Binding Capacity 345 mcg/dL (228-428); Unsaturated Iron Binding 337 ug/dL
[2022-10-29] MEDS: Pantoprazole Sodium 40 MG/10 ML VIAL IVPUSH ×2 (12:22→20:08)
[2022-10-29 12:53] LABS: Folate 11.1 ng/mL (> or = 4.0); Vitamin B12 475 pg/mL (200-900)
--- NOTE | 2022-10-29 13:29 | PM.IMHP ---
History of Present Illness Date of Service: 10/29/22 Attending physician on admission: Judi Corado Chief Complaint: Anemia Pt is a 57-year-old male with a PMH significant for CAD s/p STEMI with stent in 2019 on aspirin and brilinta, HTN, and schizoaffective disorder recently DC on 10/18 from our [facility] who presents to the ED today for evaluation of anemia ongoing since September, but worsened with latest lab. The patient was called by his PCP with results from a lab from last that showed decreasing H&H with elevated BUN; the PCP was concerned that he would need a blood transfusion. Of note, the patient is confused at baseline which makes obtaining HPI difficult. The patient is accompanied by his [facility] worker who claims she had to fight him to get him here. Patient has a he has been been fatigued lately and that his head ?spins? when he stands up. Patient also complains of heartburn which is relieved by eating food and says that he sometimes has some difficulty swallowing. Patient furthermore states that he has diffuse periumbilical belly pain. His behavioral health worker also notes that he has complained of blood in his stool previously. Patient denies nausea or vomiting, fever chills, or headache. In the ED, labs were significant for H&H of 8.1/28.5 (down from 9.9/34.8 on 10/16), MCV of 62.9, iron of 8, and iron saturation of 2%. Stool was positive for occult blood. Tox screen is positive for benzos and marijuana. In the ED patient was treated with IV pantoprazole. The patient will be admitted to the hospital for acute iron deficiency anemia treatment and evaluation. Review of Systems Review of Systems: Difficult to obtain due to pt's baseline mild confusion Fatigue, dizziness Heartburn alleviated with food Diffuse periumbilical abdominal pain Blood in stool, unclear whether bright red or black Yes all other systems are reviewed and are negative [facility] Medical History Hypertension Schizoaffective disorder Family History Father Edema Mother Developmental delay Surgical History History of hernia repair Social History Household Members: Family Housing: Apartment Do you presently have visiting nurse or other home services: Yes Alcohol intake: never Patient Tobacco Use Status: Former Tobacco user Tobacco use type: Cigarette Cigarette Packs Per Day: 1 Cigarettes Per Day: 20 Years Smoked: 30 +/- Smoked in Last 30 Days: No e-Cigarette/Vaping Use: Never Used Use of substances other than those prescribed or required for medical reasons: No Substance Use Type: Marijuana Advance Directives: No Advance Directives Information Provided: Yes service: No Sexual orientation: Don't Know Meds Allergies Allergy/AdvReac Type Severity Reaction Status Date / Time acetaminophen Allergy Unknown PANADOL = Verified 10/29/22 10:44 ACETAMINOPHEN SHELLFISH Allergy Mild PATIENT Uncoded 10/01/22 14:48 REPORTS BURNING SENSATION THROUGHOUT OPIATES Allergy Unknown BECAME Uncoded 10/01/22 14:48 ADDICTED PANADOL Allergy Unknown UNKNOWN Uncoded 10/01/22 14:48 Active Medications: Current Medications Pharmacy Consult (Consult Rx Perform Med Rec) 1 each MISCELLANE ONCE PRN PRN Reason: Consult order Home Medications Medication Instructions Recorded Confirmed Last Taken Type aspirin 81 mg tablet 81 mg PO DAILY 06/11/21 10/29/22 Unknown History benztropine 1 mg tablet 1 mg PO BEDTIME 06/11/21 10/29/22 Unknown History clonazepam 0.5 mg tablet 0.5 mg PO BID 06/11/21 10/29/22 Unknown History risperidone 0.5 mg tablet 0.5 mg PO DAILY 06/11/21 10/29/22 Unknown History risperidone 3 mg tablet 3 mg PO BEDTIME 06/11/21 10/29/22 Unknown History ticagrelor 90 mg tablet (Brilinta) 90 mg PO BID 06/11/21 10/29/22 Unknown History trazodone 100 mg tablet 100 mg PO BEDTIME 06/11/21 10/29/22 Unknown History metoprolol succinate 25 mg 1 tab PO DAILY 06/12/21 10/29/22 Unknown History tablet,extended release 24 hr albuterol sulfate 90 mcg/actuation 2 puff inhalation Q4H PRN Wheezing 10/16/22 10/29/22 Unknown History aerosol inhaler (ProAir HFA) Physical Exam Vital Signs and Narrative: Vital Signs: Last Vital Signs Temp 97.2 F 10/29/22 10:44 Pulse 142 H 10/29/22 10:44 Resp 18 10/29/22 10:44 BP 115/71 10/29/22 10:44 Pulse Ox 99 10/29/22 10:44 O2 Del Method 10/29/22 10:44 BMI result Body Mass Index 26.3 Constitutional: Alert, in no acute distress. Slightly confused, mildly agitated Mental Status: Oriented to person and place. Eyes: Pupils are equal, round, and reactive to light. Ear, Nose, and Throat: Oropharynx clear, mucous membranes moist. Ears and nose without deformities. Trachea midline. Respiratory: Clear to auscultation bilaterally. No wheezing, rales, or rhonchi. Cardiovascular: S1, S2 regular. No murmurs, rubs, or gallops. Gastrointestinal: Abdomen soft, mildly diffusely tender, non-distended. Normal bowel sounds. Neurologic: Cranial nerves II-XI are grossly intact. No focal neurological deficits. Moves all extremities spontaneously. Tremors noted in hands, worse on left. Skin: No rashes of lesions. Musculoskeletal: No cyanosis or clubbing. Extremities: No edema. Results Labs CBC and Chem 7: 10/29/22 11:25 10/29/22 11:25 Labs: Laboratory Results - last 24 hr 10/29/22 10/29/22 10/29/22 11:25 11:25 11:25 MCV 62.9 L MCH 17.9 L MCHC 28.4 L RDW 22.2 H Plt Count 562 H MPV 9.1 L Immature Gran % (Auto) 0.5 H Neut % (Auto) 79.3 H Lymph % (Auto) 12.1 L [place] % (Auto) 7.1 Eos % (Auto) 0.5 Baso % (Auto) 0.5 Lymph # (Auto) 0.8 L [place] # (Auto) 0.5 Eos # (Auto) 0.0 Baso # (Auto) 0.0 Abs Immat Gran (auto) 0.03 Absolute Neuts (auto) 5.1 Absolute Nucleated RBC 0.000 Nucleated RBC % (auto) 0.0 PT 14.5 H INR 1.3 H Anion Gap 13 Estim Creat Clear Calc 89.8 Estimated GFR > 60 Random Glucose 144 H Calcium 9.3 D Iron TIBC % Saturation Unsat Iron Binding Total Bilirubin 0.3 Direct Bilirubin < 0.2 AST 22 ALT 24 Alkaline Phosphatase 86 Total Protein 7.7 Albumin 4.2 Vitamin B12 Folate Stool Occult Blood COVID-19 (VITO) [employer] Blood Type Antibody Screen 10/29/22 10/29/22 10/29/22 11:53 11:53 11:53 MCV MCH MCHC RDW Plt Count MPV Immature Gran % (Auto) Neut % (Auto) Lymph % (Auto) [place] % (Auto) Eos % (Auto) Baso % (Auto) Lymph # (Auto) [place] # (Auto) Eos # (Auto) Baso # (Auto) Abs Immat Gran (auto) Absolute Neuts (auto) Absolute Nucleated RBC Nucleated RBC % (auto) PT INR Anion Gap Estim Creat Clear Calc Estimated GFR Random Glucose Calcium Iron 8 L TIBC 345 % Saturation 2 L Unsat Iron Binding 337 Total Bilirubin Direct Bilirubin AST ALT Alkaline Phosphatase Total Protein Albumin Vitamin B12 475 Folate 11.1 Stool Occult Blood COVID-19 (VITO) [employer] Blood Type A Positive Antibody Screen NEGATIVE 10/29/22 10/29/22 11:55 11:56 MCV MCH MCHC RDW Plt Count MPV Immature Gran % (Auto) Neut % (Auto) Lymph % (Auto) [place] % (Auto) Eos % (Auto) Baso % (Auto) Lymph # (Auto) [place] # (Auto) Eos # (Auto) Baso # (Auto) Abs Immat Gran (auto) Absolute Neuts (auto) Absolute Nucleated RBC Nucleated RBC % (auto) PT INR Anion Gap Estim Creat Clear Calc Estimated GFR Random Glucose Calcium Iron TIBC % Saturation Unsat Iron Binding Total Bilirubin Direct Bilirubin AST ALT Alkaline Phosphatase Total Protein Albumin Vitamin B12 Folate Stool Occult Blood POSITIVE COVID-19 (VITO) Negative [employer] See Note Blood Type Antibody Screen Assessment and Plan (1) Occult blood positive stool: Status: Acute (2) Anemia: Qualifiers: Anemia type: unspecified type Qualified Code(s): D64.9 - Anemia, unspecified Status: Acute Plan Pt is a 57-year-old male with a PMH significant for CAD s/p STEMI with stent in 2019 on aspirin and brilinta, HTN, and schizoaffective disorder recently DC on 10/18 from [facility] who presents to the ED today for evaluation of anemia ongoing since September but worsened with latest lab. Pt will be admitted for treatment for anemia and workup for UGI bleed. # acute iron deficiency anemia -- possibly secondary to UGI bleed -- stool positive for occult blood -- hold briinta, aspirin -- IV protonix -- IV iron supplementation, Venofer -- NPO, IVF -- GI consult -- follow CBC daily -- recheck iron, transferritin, TIBC, fe % saturation in a few days # confusion -- appears at baseline # mental health -- continue home meds # HTN -- continue home meds #HLD -- continue home meds Full code DVT prophylaxis: pneumatic compression Attending: Dr. Corado Time Spent With Patient Time: Total time managing care of this patient today ____ minutes. Quality Stroke Does the patient have a stroke diagnosis?: No VTE Prior VTE?: No VTE Risk Level:: Medical - moderate - high VTE Device Contraindication: N/A - Device Ordered VTE Drug Contraindication: Treatment Not Indicated
--- NOTE | 2022-10-29 13:33 | PHA.MEDREC ---
Pharmacy Consult ? Medication Reconciliation Pharmacy has completed the medication reconciliation. Patient recently discharged from 10/19 from [facility] p[facility]ch [facility]. Med rec done by discharge summary. Chelsi Singh, ChidiD
[2022-10-29] MEDS: Midazolam HCl/PF 2 MG/2 ML VIAL 1 MG IVPUSH (13:42)
[2022-10-29 14:16] VITALS: BP 96/55; PULSE 82; RESP 14; TEMP 36.9; O2SAT 100
--- NOTE | 2022-10-29 15:05 | PC.NURSE ---
Called pharmacy who stated they will start making the medication due now.
[2022-10-29] MEDS: Iron Sucrose Complex 200 MG in 0.9 % Sodium Chloride 100 ML 440 MG IV (15:43)
--- NOTE | 2022-10-29 15:49 | PC.NURSE ---
first attempt to call report
--- NOTE | 2022-10-29 16:08 | MHC.SHP ---
Pre-Procedural Eval Section A Date of Service: 10/29/22 The patient is an INPATIENT: Yes Changes since office visit: No Cold of Flu in the past 2 weeks, No New Medical Problems, No Changes in Medication and No Patient answered all questions The History & Physical has been completed within 30 days and I have reviewed it.: Yes Section B Chief Complaint: Acute anemia Allergies: Allergies Allergy/AdvReac Type Severity Reaction Status Date / Time acetaminophen Allergy Unknown PANADOL = Verified 10/29/22 10:44 ACETAMINOPHEN SHELLFISH Allergy Mild PATIENT Uncoded 10/01/22 14:48 REPORTS BURNING SENSATION THROUGHOUT OPIATES Allergy Unknown BECAME Uncoded 10/01/22 14:48 ADDICTED PANADOL Allergy Unknown UNKNOWN Uncoded 10/01/22 14:48 Plan I have reviewed the history and physical and performed a pertinent physical examination on my patient. No changes have occurred unless specified. Time Spent With Patient Time: Total time managing care of this patient today ____ minutes.
--- NOTE | 2022-10-29 16:08 | PM.EVENT ---
Event Note Date of Service: 10/29/22 Event Note: GI consult dictated EGD/colonoscopy planned for 10/30 for further evaluation of MARI and heme pos stools. Time Spent With Patient Time: Total time managing care of this patient today ____ minutes.
[2022-10-29] MEDS: Dextrose 5 % and Lactated Ring 1,000 ML 100 ML IVCONT (16:20)
--- NOTE | 2022-10-29 16:24 | PC.NURSE ---
Report called to med/surg
[2022-10-29 19:52] VITALS: BMI 26.2
[2022-10-29] MEDS: Benztropine Mesylate 1 MG TABLET PO (20:08)
[2022-10-29] MEDS: clonazePAM 0.5 MG TABLET PO (20:08)
[2022-10-29] MEDS: risperiDONE 3 MG TABLET PO (20:08)
[2022-10-29] MEDS: traZODone HCL 100 MG TABLET PO (20:08)
[2022-10-29] MEDS: Mirtazapine 15 MG TABLET PO (20:09)
[2022-10-29] MEDS: PEG 3350/Na Sulf,Bicarb,Cl/KCL 4,000 ML SOLN.RECON 4000 ML PO (20:22)
[2022-10-29] MEDS: 0.9 % Sodium Chloride Flush 3 ML SYRINGE IVFLUSH (20:25)
[2022-10-30] VITALS (16 sets, daily range): BP systolic 80–140; BP diastolic 51–74; PULSE 60–106; RESP 15–18; TEMP 36.2–37.6; O2SAT 97–100
[2022-10-30] MEDS: Dextrose 5 % and Lactated Ring 1,000 ML 100 ML IVCONT ×2 (00:32→08:38)
--- NOTE | 2022-10-30 03:46 | CONS_ITS ---
DATE OF SERVICE: 10/29/2022 REFERRING PHYSICIAN: Dr. Giraldo REASON FOR CONSULTATION: Anemia and Hemoccult-positive stools. HISTORY OF PRESENT ILLNESS: The patient is a 57-year-old man who was admitted to the hospital after presenting to the emergency department because of anemia. He apparently had blood work done as an outpatient and was advised to come to the emergency room. Laboratory studies documented a hematocrit this morning of 28.5, which was down from 34.8 on October 16. He has also been noted to have iron deficiency with a saturation of 2% and is currently receiving IV iron. Hemoccult testing was positive in the emergency department. The patient has no complaints of abdominal pain at this time and is status post upper endoscopy in February of 2012 because of reflux and this showed superficial gastritis with mild duodenitis. There has been no chronic use of NSAIDs and he denies any hematemesis. PAST MEDICAL HISTORY: 1. Coronary artery disease with history of [place]. 2. Hypertension. 3. Schizoaffective disorder. CURRENT MEDICATIONS: His current medication list is reviewed in the chart. He was on aspirin and Brilinta as an outpatient. ALLERGIES: MULTIPLE MEDICATION ALLERGIES ARE REVIEWED. FAMILY HISTORY: This is reviewed in the electronic medical record. SOCIAL HISTORY: There is no reported substance abuse. REVIEW OF SYSTEMS: This is not reliably obtainable. PHYSICAL EXAMINATION: GENERAL: Shows a pleasant male, lying on a stretcher. VITAL SIGNS: Reviewed in the electronic medical record and are stable. SKIN: Anicteric. HEENT: Shows no scleral icterus. NECK: Without lymphadenopathy or thyromegaly. LUNGS: Clear. HEART: Regular rate and rhythm S1, S2. No murmur. ABDOMEN: Soft without focal masses or tenderness. Bowel sounds are present. No organomegaly is noted. EXTREMITIES: Without edema. LABORATORY DATA: Reviewed. IMPRESSION: Anemia with Hemoccult-positive stools. I have recommended further evaluation with endoscopy and colonoscopy. I have discussed risks and benefits of the procedure with the patient who understands and agrees to proceed. MD JEREMY Carrion/JOHN / [phone]
[2022-10-30] MEDS: Pantoprazole Sodium 40 MG/10 ML VIAL IVPUSH (05:21)
[2022-10-30 06:22] LABS: MANUAL DIFF FLAG NO
[2022-10-30 06:25] LABS: Basophils Percent Auto 0.4 % (0-2); Eosinophils Absolute Auto 0.1 X10*3/uL (0.0-0.4); Eosinophils Percent Auto 1.2 % (0-4); Hematocrit 23.6 % (42.0-52.0); Imm Gran Abs Auto 0.03 X10*3/uL (0.00-0.03); Imm Gran Pct Auto 0.4 % (0.0-0.4); Lymphocytes Absolute Auto 0.9 X10*3/uL (1.2-4.9); Mean Corpuscular HGB Conc 28.4 g/dl (31.0-36.0); Mean Corpuscular Hemoglobin 17.5 pg (27.0-33.0); Mean Corpuscular Volume 61.6 fL (80.0-98.0); Mean Platelet Volume 9.1 fL (9.4-12.4); Monocytes Absolute Auto 0.6 X10*3/uL (0.1-1.2); Monocytes Percent Auto 8.4 % (2-11); Neutrophils Absolute Auto 5.2 x10*3/uL (2.0-8.3); Neutrophils Percent Auto 76.6 % (45-73); Platelet Count 533 X10*3/uL (160-400); Red Blood Count 3.83 X10*6/uL (4.60-5.80); White Blood Count 6.8 X10*3/uL (4.8-10.8)
--- NOTE | 2022-10-30 06:48 | MHC.PIE ---
p; h&h .06/09.6 i; dr faulkner notified e; will cont to monitor
[2022-10-30 06:51] LABS: Hemoglobin 6.7 g/dl (14.0-18.0)
[2022-10-30 07:14] LABS: Anion Gap 13 (12-20); Blood Urea Nitrogen 7 mg/dL (9-16); Calcium 8.8 mg/dL (8.4-10.2); Carbon Dioxide 22 mmol/L (22-29); Chloride 108 mmol/L (96-108); Creatinine Clr Calc Pharmacy 103.4; Estimated Glomerular Filt Rate > 60; Glucose Random 125 mg/dL (60-115); Potassium 3.6 mmol/L (3.3-5.1); Sodium 139 mmol/L (135-145)
[2022-10-30] MEDS: clonazePAM 0.5 MG TABLET PO ×2 (07:50→21:41)
[2022-10-30] MEDS: Ezetimibe 10 MG TABLET PO (07:50)
[2022-10-30] MEDS: Metoprolol Succinate ER 25 MG TAB.ER.24H PO (07:50)
[2022-10-30] MEDS: amLODIPine Besylate 2.5 MG TABLET PO (07:51)
[2022-10-30] MEDS: risperiDONE 0.5 MG TABLET PO (07:51)
--- NOTE | 2022-10-30 11:32 | P.PNIM_ITS ---
Subjective Subjective Date of Service: 10/30/22 Interval History: History obtained via dairy nutritionist patient appears very anxious denies abdominal pain, no bloody stool, no hematemesis or melena patient is NPO for upper endoscopy and colonoscopy noted to have significant drop in hematocrit from 28.5 on admission to 23.6, patient denies lightheadedness dizziness, no chest pain, no palpitation, no acute events overnight. Review of Systems Review of Systems: Yes all other systems are reviewed and are negative Physical Exam Vital Signs: Vital Signs: Last Vital Signs Temp 98 F 10/30/22 11:19 Pulse 64 10/30/22 11:19 Resp 18 10/30/22 11:19 BP 137/61 10/30/22 11:19 Pulse Ox 100 10/30/22 07:50 O2 Del Method 10/30/22 07:50 BMI result Body Mass Index 26.2 Const: Other: General resting comfortably, in no acute distress. Anicteric sclera Neck supple no JVD. CVS regular rate rhythm, Respiratory lungs clear to auscultation, no respiratory distress, no wheeze, no rhonchi. Gastrointestinal abdomen soft, nontender, bowel sounds audible, no guarding , no rigidity. Extremities no edema. Neuro nonfocal , hand tremors Skin no rash/pale Objective Data Active Medications Albuterol Sulfate (Albuterol Sulfate 90 Mcg 8 Gm Inhaler) 2 puff INHALE Q4H PRN PRN Reason: Wheezing Amlodipine Besylate (Amlodipine Besylate 2.5 Mg Tablet) 2.5 mg PO DAILY [facility]; Protocol Last Admin: 10/30/22 07:51 Dose: 2.5 mg Documented By: YE Benztropine Mesylate (Benztropine Mesylate 1 Mg Tablet) 1 mg PO BEDTIME [facility] Last Admin: 10/29/22 20:08 Dose: 1 mg Documented By: RODNEY Clonazepam (Clonazepam 0.5 Mg Tablet) 0.5 mg PO BID [facility] Last Admin: 10/30/22 07:50 Dose: 0.5 mg Documented By: YE Ezetimibe (Ezetimibe 10 Mg Tablet) 10 mg PO DAILY [facility] Last Admin: 10/30/22 07:50 Dose: 10 mg Documented By: YE Metoprolol Succinate (Metoprolol Succinate Er 25 Mg Tab.Er.24h) 25 mg PO DAILY [facility]; Protocol Last Admin: 10/30/22 07:50 Dose: 25 mg Documented By: YE Mirtazapine (Mirtazapine 15 Mg Tablet) 15 mg PO BEDTIME [facility] Last Admin: 10/29/22 20:09 Dose: 15 mg Documented By: RODNEY Ondansetron HCl (Ondansetron Hcl 4 Mg/2 Ml Vial) 4 mg IVPUSH Q8H PRN PRN Reason: Nausea and Vomiting Pantoprazole Sodium (Pantoprazole Sodium 40 Mg/10 Ml Vial) 40 mg IVPUSH BID@0630,1630 [facility] Last Admin: 10/30/22 05:21 Dose: 40 mg Documented By: RODNEY Pharmacy Consult (Consult Rx Perform Med Rec) 1 each MISCELLANE ONCE PRN PRN Reason: Consult order Risperidone (Risperidone 0.5 Mg Tablet) 0.5 mg PO DAILY [facility] Last Admin: 10/30/22 07:51 Dose: 0.5 mg Documented By: YE Risperidone (Risperidone 3 Mg Tablet) 3 mg PO BEDTIME [facility] Last Admin: 10/29/22 20:08 Dose: 3 mg Documented By: RODNEY Sodium Chloride (0.9 % Sodium Chloride Flush 3 Ml Syringe) 3 ml IVFLUSH QSHIFT [facility] Last Admin: 10/30/22 07:56 Dose: Not Given Documented By: YE Non-Admin Reason: IV Running Trazodone HCl (Trazodone Hcl 100 Mg Tablet) 100 mg PO BEDTIME [facility] Last Admin: 10/29/22 20:08 Dose: 100 mg Documented By: RODNEY Labs CBC & Chem 7: 10/30/22 06:16 10/30/22 06:16 Labs: Laboratory Results - last 24 hr 10/29/22 10/29/22 10/29/22 11:25 11:25 11:25 MCV 62.9 L MCH 17.9 L MCHC 28.4 L RDW 22.2 H Plt Count 562 H MPV 9.1 L Immature Gran % (Auto) 0.5 H Neut % (Auto) 79.3 H Lymph % (Auto) 12.1 L [place] % (Auto) 7.1 Eos % (Auto) 0.5 Baso % (Auto) 0.5 Lymph # (Auto) 0.8 L [place] # (Auto) 0.5 Eos # (Auto) 0.0 Baso # (Auto) 0.0 Abs Immat Gran (auto) 0.03 Absolute Neuts (auto) 5.1 Absolute Nucleated RBC 0.000 Nucleated RBC % (auto) 0.0 PT 14.5 H INR 1.3 H Anion Gap 13 Estim Creat Clear Calc 89.8 Estimated GFR > 60 Random Glucose 144 H Calcium 9.3 D Iron TIBC % Saturation Unsat Iron Binding Total Bilirubin 0.3 Direct Bilirubin < 0.2 AST 22 ALT 24 Alkaline Phosphatase 86 Total Protein 7.7 Albumin 4.2 Vitamin B12 Folate Stool Occult Blood COVID-19 (VITO) [email or web address] Com Blood Type Antibody Screen Crossmatch 10/29/22 10/29/22 10/29/22 11:53 11:53 11:53 MCV MCH MCHC RDW Plt Count MPV Immature Gran % (Auto) Neut % (Auto) Lymph % (Auto) [place] % (Auto) Eos % (Auto) Baso % (Auto) Lymph # (Auto) [place] # (Auto) Eos # (Auto) Baso # (Auto) Abs Immat Gran (auto) Absolute Neuts (auto) Absolute Nucleated RBC Nucleated RBC % (auto) PT INR Anion Gap Estim Creat Clear Calc Estimated GFR Random Glucose Calcium Iron 8 L TIBC 345 % Saturation 2 L Unsat Iron Binding 337 Total Bilirubin Direct Bilirubin AST ALT Alkaline Phosphatase Total Protein Albumin Vitamin B12 475 Folate 11.1 Stool Occult Blood COVID-19 (VITO) COVID-19 [employer] Com Blood Type A Positive Antibody Screen NEGATIVE Crossmatch See Detail 10/29/22 10/29/22 10/30/22 11:55 11:56 06:16 MCV 61.6 L MCH 17.5 L MCHC 28.4 L RDW 22.0 H Plt Count 533 H MPV 9.1 L Immature Gran % (Auto) 0.4 Neut % (Auto) 76.6 H Lymph % (Auto) 13.0 L [place] % (Auto) 8.4 Eos % (Auto) 1.2 Baso % (Auto) 0.4 Lymph # (Auto) 0.9 L [place] # (Auto) 0.6 Eos # (Auto) 0.1 Baso # (Auto) 0.0 Abs Immat Gran (auto) 0.03 Absolute Neuts (auto) 5.2 Absolute Nucleated RBC 0.000 Nucleated RBC % (auto) 0.0 PT INR Anion Gap Estim Creat Clear Calc Estimated GFR Random Glucose Calcium Iron TIBC % Saturation Unsat Iron Binding Total Bilirubin Direct Bilirubin AST ALT Alkaline Phosphatase Total Protein Albumin Vitamin B12 Folate Stool Occult Blood POSITIVE COVID-19 (VITO) Negative COVID-19 Clin Com See Note Blood Type Antibody Screen Crossmatch 10/30/22 06:16 MCV MCH MCHC RDW Plt Count MPV Immature Gran % (Auto) Neut % (Auto) Lymph % (Auto) [place] % (Auto) Eos % (Auto) Baso % (Auto) Lymph # (Auto) [place] # (Auto) Eos # (Auto) Baso # (Auto) Abs Immat Gran (auto) Absolute Neuts (auto) Absolute Nucleated RBC Nucleated RBC % (auto) PT INR Anion Gap 13 Estim Creat Clear Calc 103.4 Estimated GFR > 60 Random Glucose 125 H Calcium 8.8 Iron TIBC % Saturation Unsat Iron Binding Total Bilirubin Direct Bilirubin AST ALT Alkaline Phosphatase Total Protein Albumin Vitamin B12 Folate Stool Occult Blood COVID-19 (VITO) COVID-19 Clin Com Blood Type Antibody Screen Crossmatch Assessment and Plan (1) Anemia: Status: Acute (2) Occult blood positive stool: Status: Acute (3) Chronic schizophrenia: Status: Acute Plan 57-year-old male with a PMH significant for CAD s/p STEMI with stent in 2019 on aspirin and brilinta, HTN, and schizoaffective disorder recently DC on 10/18 from our [facility] who presents to the ED today for evaluation of anemia ongoing since September but worsened with latest lab. Pt will be admitted for treatment for anemia and workup for UGI bleed. # acute blood loss anemia -- possibly secondary to UGI bleed, iron studies consistent with significant iron deficiency -- stool positive for occult blood -- hematocrit dropped this morning will transfuse 2 unit of packed RBC , DC IV fluids, continue to hold briinta, aspirin -- continue IV protonix, status post IV iron supplementation, Venofer X1 -- seen by GI and is scheduled for upper endoscopy and colonoscopy to today -- follow CBC daily -- recheck iron, transferritin, TIBC, fe % saturation in a few days # history of coronary artery disease status post stent placement continue beta blockers, CT aspirin and Brilinta on hold recommend close outpatient follow-up with Cardiology. # confusion -- appears at baseline # mental health -- continue home meds Klonopin, Cogentin, risperidone and trazodone. # HTN -- BP stable continue home meds metoprolol 25 mg and Norvasc 2.5 mg #HLD -- continue Zetia Full code DVT prophylaxis: pneumatic compression In my clinical opinion patient need continued inpatient hospitalization for further management of acute anemia requiring blood transfusion. Time Spent With Patient Time: Total time managing care of this patient today ____ minutes. Quality Stroke Does the patient have a stroke diagnosis?: No VTE Prior VTE?: No VTE Risk Level:: Medical - moderate - high VTE Device Contraindication: N/A - Device Ordered VTE Drug Contraindication: Treatment Not Indicated
--- NOTE | 2022-10-30 12:15 | MHC.CM.PN ---
Addendum entered by Megan Enciso 10/30/22 12:41: SPOKE WITH [facility] TOE CLOSING MACHINE TENDER JOVI ([phone]) SHE STATES HE HAS A GUARDIAN AND WILL FAX A COPY ELDER TO US. Original Note: CM SPOKE WITH BROTHER LUL VIA [employer] PHONE TECHNICAL TRAINING COORDINATOR. SOME INFORMATION OBTAINED, THEN BROTHER CAME TO HOSPITAL WITH A FAMILY MEMBER THAT SPEAKS AND UNDERSTANDS [place]. PT LIVES WITH MOTHER IN AN APT. 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 FUNCTIONALLY INDEPENDENT AT BASELINE, USES A NEBULIZER. COVID VAX X4 . NO HCP. UNABLE TO DO ONE DUE TO BASELINE CONFUSION. PCP AT [facility]. DP: HOME, RESUME OUTPATIENT SERVICES. BROTHER LUL WILL TRANSPORT.
--- NOTE | 2022-10-30 13:07 | HO.ANESPROP2 ---
HPI - Anesthesia Eval Consult details Narrative: Heme positive stools PMFSH Active Problems Active Problems: All Active Problems (Updated 10/29/22 @ 13:04 by Lesa Giraldo DO) Anemia (Acute) Occult blood positive stool (Acute) Chronic schizophrenia (Acute) Chest pain (Acute) Hypertension (Acute) Schizoaffective disorder (Acute) CAD (coronary artery disease) (Acute) Atypical chest pain (Acute) Palpitations (Acute) Past Medical History Medical History Hypertension Schizoaffective disorder Family History Family History Father Edema Mother Developmental delay Family history of problems with anesthesia: No Surgical History Surgical History History of hernia repair History of Problems with Anesthesia: No Social History Social History Household Members: Family Housing: Apartment Do you presently have visiting nurse or other home services: Yes Alcohol intake: never Patient Tobacco Use Status: Former Tobacco user Quit Date: 5 months ag Tobacco use type: Cigarette Cigarette Packs Per Day: 1 Cigarettes Per Day: 20 Years Smoked: 30 +/- Smoked in Last 30 Days: No e-Cigarette/Vaping Use: Never Used Use of substances other than those prescribed or required for medical reasons: No Substance Use Type: Marijuana Currently Displaying Signs/Symptoms of Drug Intoxication Withdrawal: No Have you been hit, kicked, punched, or otherwise hurt by someone within the past year? If so, by whom?: No Do you feel safe in your current relationship?: No Current Relationship Is there a partner from a previous relationship who is making you feel unsafe now?: No Are you made to feel afraid or neglected: No Are you DNR?: No Advance Directives: No Advance Directives Information Provided: Yes Do you have thoughts of harming others: None Do you have a plan to hurt others: No Plan Recently lost weight without trying: Unsure Nutrition Risks: No Nutritional Risk Poor oral hygiene: No service: No Current occupational status: disabled Sexual orientation: Don't Know Meds Allergies Allergy/AdvReac Type Severity Reaction Status Date / Time acetaminophen Allergy Unknown PANADOL = Verified 10/29/22 10:44 ACETAMINOPHEN SHELLFISH Allergy Mild PATIENT Uncoded 10/01/22 14:48 REPORTS BURNING SENSATION THROUGHOUT OPIATES Allergy Unknown BECAME Uncoded 10/01/22 14:48 ADDICTED PANADOL Allergy Unknown UNKNOWN Uncoded 10/01/22 14:48 Active Medications: Current Medications Albuterol Sulfate (Albuterol Sulfate 90 Mcg 8 Gm Inhaler) 2 puff INHALE Q4H PRN PRN Reason: Wheezing Amlodipine Besylate (Amlodipine Besylate 2.5 Mg Tablet) 2.5 mg PO DAILY [facility]; Protocol Last Admin: 10/30/22 07:51 Dose: 2.5 mg Benztropine Mesylate (Benztropine Mesylate 1 Mg Tablet) 1 mg PO BEDTIME [facility] Last Admin: 10/29/22 20:08 Dose: 1 mg Clonazepam (Clonazepam 0.5 Mg Tablet) 0.5 mg PO BID [facility] Last Admin: 10/30/22 07:50 Dose: 0.5 mg Ezetimibe (Ezetimibe 10 Mg Tablet) 10 mg PO DAILY [facility] Last Admin: 10/30/22 07:50 Dose: 10 mg Metoprolol Succinate (Metoprolol Succinate Er 25 Mg Tab.Er.24h) 25 mg PO DAILY [facility]; Protocol Last Admin: 10/30/22 07:50 Dose: 25 mg Mirtazapine (Mirtazapine 15 Mg Tablet) 15 mg PO BEDTIME [facility] Last Admin: 10/29/22 20:09 Dose: 15 mg Ondansetron HCl (Ondansetron Hcl 4 Mg/2 Ml Vial) 4 mg IVPUSH Q8H PRN PRN Reason: Nausea and Vomiting Pantoprazole Sodium (Pantoprazole Sodium 40 Mg/10 Ml Vial) 40 mg IVPUSH BID@0630,1630 [facility] Last Admin: 10/30/22 05:21 Dose: 40 mg Pharmacy Consult (Consult Rx Perform Med Rec) 1 each MISCELLANE ONCE PRN PRN Reason: Consult order Risperidone (Risperidone 0.5 Mg Tablet) 0.5 mg PO DAILY [facility] Last Admin: 10/30/22 07:51 Dose: 0.5 mg Risperidone (Risperidone 3 Mg Tablet) 3 mg PO BEDTIME [facility] Last Admin: 10/29/22 20:08 Dose: 3 mg Sodium Chloride (0.9 % Sodium Chloride Flush 3 Ml Syringe) 3 ml IVFLUSH QSHIFT [facility] Last Admin: 10/30/22 07:56 Dose: Not Given Trazodone HCl (Trazodone Hcl 100 Mg Tablet) 100 mg PO BEDTIME [facility] Last Admin: 10/29/22 20:08 Dose: 100 mg Home Medications Medication Instructions Recorded Confirmed Last Taken Type aspirin 81 mg tablet 81 mg PO DAILY 06/11/21 10/29/22 Unknown History benztropine 1 mg tablet 1 mg PO BEDTIME 06/11/21 10/29/22 Unknown History clonazepam 0.5 mg tablet 0.5 mg PO BID 06/11/21 10/29/22 Unknown History risperidone 0.5 mg tablet 0.5 mg PO DAILY 06/11/21 10/29/22 Unknown History risperidone 3 mg tablet 3 mg PO BEDTIME 06/11/21 10/29/22 Unknown History ticagrelor 90 mg tablet (Brilinta) 90 mg PO BID 06/11/21 10/29/22 Unknown History trazodone 100 mg tablet 100 mg PO BEDTIME 06/11/21 10/29/22 Unknown History metoprolol succinate 25 mg 1 tab PO DAILY 06/12/21 10/29/22 Unknown History tablet,extended release 24 hr albuterol sulfate 90 mcg/actuation 2 puff inhalation Q4H PRN Wheezing 10/16/22 10/29/22 Unknown History aerosol inhaler (ProAir HFA) Exam Exam Date and Time: October 30, 2022 1307 Height,Weight and Vital Signs: Height 5 ft 1.54 in Weight 64 kg Last Vital Signs Temp 98.4 F 10/30/22 13:01 Pulse 62 10/30/22 13:01 Resp 18 10/30/22 13:01 BP 132/68 10/30/22 13:01 Pulse Ox 99 10/30/22 13:01 O2 Del Method 10/30/22 13:01 Pertinent Lab Results Pertinent Lab Results: Laboratory Tests 10/29/22 10/29/22 10/29/22 11:25 11:25 11:25 WBC 6.4 RBC 4.53 L Hgb 8.1 L Hct 28.5 L MCV 62.9 L MCH 17.9 L MCHC 28.4 L RDW 22.2 H Plt Count 562 H MPV 9.1 L Immature Gran % (Auto) 0.5 H Neut % (Auto) 79.3 H Lymph % (Auto) 12.1 L [place] % (Auto) 7.1 Eos % (Auto) 0.5 Baso % (Auto) 0.5 Lymph # (Auto) 0.8 L [place] # (Auto) 0.5 Eos # (Auto) 0.0 Baso # (Auto) 0.0 Abs Immat Gran (auto) 0.03 Absolute Neuts (auto) 5.1 Absolute Nucleated RBC 0.000 Nucleated RBC % (auto) 0.0 PT 14.5 H INR 1.3 H Sodium 138 Potassium 3.4 Chloride 104 Carbon Dioxide 24 Anion Gap 13 BUN 9 Creatinine 0.75 Estim Creat Clear Calc 89.8 Estimated GFR > 60 Random Glucose 144 H Calcium 9.3 D Iron TIBC % Saturation Unsat Iron Binding Total Bilirubin 0.3 Direct Bilirubin < 0.2 AST 22 ALT 24 Alkaline Phosphatase 86 Total Protein 7.7 Albumin 4.2 Vitamin B12 Folate Stool Occult Blood COVID-19 (VITO) COVID-19 Clin Com Blood Type Antibody Screen Crossmatch 10/29/22 10/29/22 10/29/22 11:53 11:53 11:53 WBC RBC Hgb Hct MCV MCH MCHC RDW Plt Count MPV Immature Gran % (Auto) Neut % (Auto) Lymph % (Auto) [place] % (Auto) Eos % (Auto) Baso % (Auto) Lymph # (Auto) [place] # (Auto) Eos # (Auto) Baso # (Auto) Abs Immat Gran (auto) Absolute Neuts (auto) Absolute Nucleated RBC Nucleated RBC % (auto) PT INR Sodium Potassium Chloride Carbon Dioxide Anion Gap BUN Creatinine Estim Creat Clear Calc Estimated GFR Random Glucose Calcium Iron 8 L TIBC 345 % Saturation 2 L Unsat Iron Binding 337 Total Bilirubin Direct Bilirubin AST ALT Alkaline Phosphatase Total Protein Albumin Vitamin B12 475 Folate 11.1 Stool Occult Blood COVID-19 (VITO) COVID-19 Clin Com Blood Type A Positive Antibody Screen NEGATIVE Crossmatch See Detail 10/29/22 10/29/22 10/30/22 11:55 11:56 06:16 WBC 6.8 RBC 3.83 L Hgb 6.7 L* Hct 23.6 L MCV 61.6 L MCH 17.5 L MCHC 28.4 L RDW 22.0 H Plt Count 533 H MPV 9.1 L Immature Gran % (Auto) 0.4 Neut % (Auto) 76.6 H Lymph % (Auto) 13.0 L [place] % (Auto) 8.4 Eos % (Auto) 1.2 Baso % (Auto) 0.4 Lymph # (Auto) 0.9 L [place] # (Auto) 0.6 Eos # (Auto) 0.1 Baso # (Auto) 0.0 Abs Immat Gran (auto) 0.03 Absolute Neuts (auto) 5.2 Absolute Nucleated RBC 0.000 Nucleated RBC % (auto) 0.0 PT INR Sodium Potassium Chloride Carbon Dioxide Anion Gap BUN Creatinine Estim Creat Clear Calc Estimated GFR Random Glucose Calcium Iron TIBC % Saturation Unsat Iron Binding Total Bilirubin Direct Bilirubin AST ALT Alkaline Phosphatase Total Protein Albumin Vitamin B12 Folate Stool Occult Blood POSITIVE COVID-19 (VITO) Negative [employer] See Note Blood Type Antibody Screen Crossmatch 10/30/22 06:16 WBC RBC Hgb Hct MCV MCH MCHC RDW Plt Count MPV Immature Gran % (Auto) Neut % (Auto) Lymph % (Auto) [place] % (Auto) Eos % (Auto) Baso % (Auto) Lymph # (Auto) [place] # (Auto) Eos # (Auto) Baso # (Auto) Abs Immat Gran (auto) Absolute Neuts (auto) Absolute Nucleated RBC Nucleated RBC % (auto) PT INR Sodium 139 Potassium 3.6 Chloride 108 Carbon Dioxide 22 Anion Gap 13 BUN 7 L Creatinine 0.65 Estim Creat Clear Calc 103.4 Estimated GFR > 60 Random Glucose 125 H Calcium 8.8 Iron TIBC % Saturation Unsat Iron Binding Total Bilirubin Direct Bilirubin AST ALT Alkaline Phosphatase Total Protein Albumin Vitamin B12 Folate Stool Occult Blood COVID-19 (VITO) COVID-19 [employer] Com Blood Type Antibody Screen Crossmatch Airway Mallampati Class: II TM Dist: >3cm Neck ROM: Full Denture: Upper Loose/Missing/Broken Teeth: Yes (upper denture, bottom poor dentition, denies any loose teeth) Heart: [id number] Lungs: cta b/l Assessment and Plan Assessment Anesthesia Assessment: Anesthesia Plan Discussed and Chart Reviewed Final Anesthetic Review Family History of Problems with Anesthesia: No History of Problems with Anesthesia: No NPO: Yes ASA Class: III Final Preanesthetic Review: No Changes in Pt Med Stat, Meds/Allgs Chart Reviewed, Consent Obtained/Reviewed and Anes Risks/Benef Reviewed Patient Risk: Intermediate Procedure Risk: Intermediate Assessment/Block/Sedation in SS: Assess/Block/Sedation-SS Anesthetic Plan Anesthetic Plan: MAC: and Agree w/ Assess. and Plan Disposition: Standard PACU
--- NOTE | 2022-10-30 13:50 | PM.OP ---
Brief Operative Note Date of Service: 10/30/22 Pre-op diagnosis: iron def anemia heme pos stool Post-op diagnosis: same Procedure: egd colonoscopy Surgeon: Amari Bonilla Anesthesia: MAC Was an Coding Auditor used for this Procedure?: No Estimated blood loss (mL): 5 Pathology: other Condition: stable Disposition: PACU
--- NOTE | 2022-10-30 13:51 | PM.EVENT ---
Event Note Date of Service: 10/30/22 Event Note: EGD/Colonoscopy dictated EGD shows mild distal esophagitis antal and duodenal bx's taken. 6 mm polyp removed at 50 cm on colonoscopy. Rec: advance diet, oral ppi f/u bx results and monitor labs. can d/c later today from GI standpoint.\ ok to continue antiplatelet rx. Time Spent With Patient Time: Total time managing care of this patient today ____ minutes.
[2022-10-30 16:23] LABS: Hematocrit 31.6 % (42.0-52.0); Hemoglobin 9.5 g/dl (14.0-18.0); Mean Corpuscular HGB Conc 30.1 g/dl (31.0-36.0); Mean Corpuscular Hemoglobin 20.2 pg (27.0-33.0); Mean Corpuscular Volume 67.2 fL (80.0-98.0); Platelet Count 421 X10*3/uL (160-400); Red Cell Distribution Width 25.6 % (11.0-16.0); White Blood Count 6.1 X10*3/uL (4.8-10.8)
[2022-10-30] MEDS: traZODone HCL 100 MG TABLET PO (21:41)
[2022-10-30] MEDS: Mirtazapine 15 MG TABLET PO (21:42)
[2022-10-30] MEDS: 0.9 % Sodium Chloride Flush 3 ML SYRINGE IVFLUSH (21:42)
[2022-10-30] MEDS: risperiDONE 3 MG TABLET PO (21:42)
[2022-10-30] MEDS: Benztropine Mesylate 1 MG TABLET PO (21:42)
--- NOTE | 2022-10-31 00:36 | OP_ITS ---
SURGEON: Amari Bonilla MD INDICATIONS: Iron deficiency anemia and Hemoccult-positive stools. PREOPERATIVE DIAGNOSIS: POSTOPERATIVE DIAGNOSIS: PROCEDURE PERFORMED: 1. Upper endoscopy with biopsy. 2. Colonoscopy to the terminal ileum with snare polypectomy. ESTIMATED BLOOD LOSS: COMPLICATIONS: ANESTHESIA: Monitored anesthesia care. ASSISTANTS: SPECIMENS: DESCRIPTION OF PROCEDURE: Date: 10/30/22. History and physical performed. The risks and benefits of the procedure were explained to the patient and informed consent was obtained. The patient was placed in the left lateral decubitus position. The Olympus video gastroscope was introduced into the esophagus, stomach, and duodenum. Examination was performed. The scope was removed. He was repositioned for colonoscopy. A digital rectal exam was performed and showed an enlarged prostate. The Olympus pediatric video colonoscope was introduced into the rectum and advanced to the cecum without difficulty. The cecum was identified by transillumination, palpation, and identification of ileocecal valve. Examination was performed. The scope was removed. He tolerated both procedures well and was returned to recovery area in stable condition. FINDINGS: Upper endoscopy: 1. Esophagus: The esophagus showed mild distal esophagitis. 2. Stomach: The stomach showed no evidence of antral ulceration or bleeding. Biopsies were obtained from the antrum. 3. Duodenum: The bulb and 2nd portion were normal. Biopsies were obtained from the second portion because of iron-deficiency anemia. Colonoscopy: There was some retained liquid and undigested food mainly in the rectum. This was washed and suctioned. A single polyp at 50 cm measuring approximately 6 mm was removed with a cold snare. No other polyps were identified. Retroflexed examination showed moderately large internal hemorrhoids. IMPRESSION: 1. Esophagitis. 2. Colon polyp. RECOMMENDATION: Follow up the biopsy results. MD JEREMY Carrion/JOHN / [id number]
[2022-10-31 02:57] VITALS: BP 107/59; PULSE 63; RESP 18; TEMP 36.4; O2SAT 98
[2022-10-31] MEDS: Omeprazole 20 MG CAPSULE.DR PO (05:22)
[2022-10-31 07:22] LABS: Anion Gap 14 (12-20); Blood Urea Nitrogen 9 mg/dL (9-16); Calcium 8.6 mg/dL (8.4-10.2); Carbon Dioxide 22 mmol/L (22-29); Chloride 106 mmol/L (96-108); Creatinine Clr Calc Pharmacy 94.7; Estimated Glomerular Filt Rate > 60; Glucose Random 84 mg/dL (60-115); Potassium 3.9 mmol/L (3.3-5.1); Sodium 138 mmol/L (135-145)
[2022-10-31 07:23] LABS: Hematocrit 31.4 % (42.0-52.0); Hemoglobin 9.3 g/dl (14.0-18.0); Mean Corpuscular HGB Conc 29.6 g/dl (31.0-36.0); Mean Corpuscular Hemoglobin 19.9 pg (27.0-33.0); Mean Corpuscular Volume 67.1 fL (80.0-98.0); Mean Platelet Volume 9.5 fL (9.4-12.4); NRBC Pct Auto 0.3 /100WBC (0.0-0.2); Platelet Count 460 X10*3/uL (160-400); Red Blood Count 4.68 X10*6/uL (4.60-5.80); Red Cell Distribution Width 25.5 % (11.0-16.0); White Blood Count 7.3 X10*3/uL (4.8-10.8)
[2022-10-31 07:47] VITALS: BP 117/61; PULSE 62; RESP 18; TEMP 36.6; O2SAT 100
[2022-10-31] MEDS: 0.9 % Sodium Chloride Flush 3 ML SYRINGE IVFLUSH (10:40)
[2022-10-31] MEDS: Ezetimibe 10 MG TABLET PO (10:41)
[2022-10-31] MEDS: risperiDONE 0.5 MG TABLET PO (10:42)
[2022-10-31] MEDS: Metoprolol Succinate ER 25 MG TAB.ER.24H PO (10:44)
[2022-10-31] MEDS: amLODIPine Besylate 2.5 MG TABLET PO (10:44)
[2022-10-31] MEDS: clonazePAM 0.5 MG TABLET PO (10:44)
[2022-10-31 11:00] VITALS: BP 107/64; PULSE 86; RESP 18; TEMP 36.7; O2SAT 100
--- NOTE | 2022-10-31 12:25 | P.CONCA_ITS ---
History of Present Illness History of Present Illness Date of Service: 10/31/22 Chief complaint: Acute anemia Narrative: This is a cardiology consultation antiplatelet therapy and GI bleeding. Per hospitalist notes, acute blood loss anemia thought to be from upper GI bleed. From cardiac standpoint, history of coronary disease and prior STEMI. In the outpatient meds, listed to be on both aspirin as well as Brilinta. He lost saw Dr. Butler a month ago. At that time, there is mention of poor history and vague symptoms. There is mention of prior inferior STEMI in 2020. Not clear why he is still on dual antiplatelet therapy. At this time, there does not seem to be any acute cardiac issue. Review of Systems Review of Systems: Yes all other systems are reviewed and are negative Constitutional: Constitutional: Reports as per HPI Eyes: Eyes: Reports as per HPI ENT: Reports as per HPI Cardiovascular: Cardiovascular: Reports as per HPI, Denies acrocyanosis, Denies cool extremities, Denies chest pain, Denies leg edema, Denies lightheadedness, Denies palpitations and Denies dyspnea Respiratory: Respiratory: Reports as per HPI, Reports no additional respiratory complaints and Denies dyspnea Gastrointestinal: Gastrointestinal: Reports as per HPI and Reports no additional gastrointestinal complaints Genitourinary: Genitourinary: Reports no additional male genitourinary complaints and Reports as per HPI Musculoskeletal: Musculoskeletal: Reports no additional musculoskeletal complaints and Reports as per HPI Integumentary/Breasts: Skin/Breast: Reports system reviewed and no additional complaints, except as docu Neurologic: Reports system reviewed and no additional complaints, except as documented and Reports as per HPI Psychiatric: Psychiatric: Reports no additional psychiatric complaints and Reports as per HPI Endocrine: Endocrine: Reports no additional endocrine complaints, Reports as per HPI and Denies palpitations Hematologic/Lymphatic: Hematologic/Lymphatic: Reports no additional hematologic/lymphatic complaints and Reports as per HPI Allergic/Immunologic: Allergic/Immunologic: Reports no additional allergic/immunologic complaints and Reports as per HPI PMF Past Medical History Medical History Hypertension Schizoaffective disorder Family History Family History Father Edema Mother Developmental delay Surgical History Surgical History History of hernia repair Social History Social History Household Members: Family Housing: Apartment Do you presently have visiting nurse or other home services: Yes Alcohol intake: never Patient Tobacco Use Status: Former Tobacco user Quit Date: 5 months ag Tobacco use type: Cigarette Cigarette Packs Per Day: 1 Cigarettes Per Day: 20 Years Smoked: 30 +/- Smoked in Last 30 Days: No e-Cigarette/Vaping Use: Never Used Use of substances other than those prescribed or required for medical reasons: No Substance Use Type: Marijuana Currently Displaying Signs/Symptoms of Drug Intoxication Withdrawal: No Have you been hit, kicked, punched, or otherwise hurt by someone within the past year? If so, by whom?: No Do you feel safe in your current relationship?: No Current Relationship Is there a partner from a previous relationship who is making you feel unsafe now?: No Are you made to feel afraid or neglected: No Are you DNR?: No Advance Directives: No Advance Directives Information Provided: Yes Do you have thoughts of harming others: None Do you have a plan to hurt others: No Plan Recently lost weight without trying: Unsure Nutrition Risks: No Nutritional Risk Poor oral hygiene: No service: No Current occupational status: disabled Sexual orientation: Don't Know Meds Allergies Allergy/AdvReac Type Severity Reaction Status Date / Time acetaminophen Allergy Unknown PANADOL = Verified 10/29/22 10:44 ACETAMINOPHEN SHELLFISH Allergy Mild PATIENT Uncoded 10/01/22 14:48 REPORTS BURNING SENSATION THROUGHOUT OPIATES Allergy Unknown BECAME Uncoded 10/01/22 14:48 ADDICTED PANADOL Allergy Unknown UNKNOWN Uncoded 10/01/22 14:48 Active Medications: Current Medications Acetaminophen (Acetaminophen 325 Mg Tablet) 650 mg PO ONCE PRN PRN Reason: Pain, Mild (Pain Scale 1-3) Albuterol Sulfate (Albuterol Sulfate 90 Mcg 8 Gm Inhaler) 2 puff INHALE Q4H PRN PRN Reason: Wheezing Amlodipine Besylate (Amlodipine Besylate 2.5 Mg Tablet) 2.5 mg PO DAILY KAREN; Protocol Last Admin: 10/31/22 10:44 Dose: 2.5 mg Benztropine Mesylate (Benztropine Mesylate 1 Mg Tablet) 1 mg PO BEDTIME KAREN Last Admin: 10/30/22 21:42 Dose: 1 mg Clonazepam (Clonazepam 0.5 Mg Tablet) 0.5 mg PO BID [facility] [place] Last Admin: 10/31/22 10:44 Dose: 0.5 mg Ezetimibe (Ezetimibe 10 Mg Tablet) 10 mg PO DAILY [facility] [place] Last Admin: 10/31/22 10:41 Dose: 10 mg Metoprolol Succinate (Metoprolol Succinate Er 25 Mg Tab.Er.24h) 25 mg PO DAILY [facility] [place]; Protocol Last Admin: 10/31/22 10:44 Dose: 25 mg Mirtazapine (Mirtazapine 15 Mg Tablet) 15 mg PO BEDTIME [facility] [place] Last Admin: 10/30/22 21:42 Dose: 15 mg Omeprazole (Omeprazole 20 Mg Capsule.Dr) 20 mg PO DAILY@0630 [facility] [place] Last Admin: 10/31/22 05:22 Dose: 20 mg Ondansetron HCl (Ondansetron Hcl 4 Mg/2 Ml Vial) 4 mg IVPUSH Q8H PRN PRN Reason: Nausea and Vomiting Ondansetron HCl (Ondansetron Hcl 4 Mg/2 Ml Vial) 4 mg IVPUSH ONCE PRN PRN Reason: Nausea and Vomiting Pharmacy Consult (Consult Rx Perform Med Rec) 1 each MISCELLANE ONCE PRN PRN Reason: Consult order Risperidone (Risperidone 0.5 Mg Tablet) 0.5 mg PO DAILY [facility] [place] Last Admin: 10/31/22 10:42 Dose: 0.5 mg Risperidone (Risperidone 3 Mg Tablet) 3 mg PO BEDTIME [facility] [place] Last Admin: 10/30/22 21:42 Dose: 3 mg Sodium Chloride (0.9 % Sodium Chloride Flush 3 Ml Syringe) [facility] Admin: 10/31/22 10:40 Dose: 3 ml Trazodone HCl (Trazodone Hcl 100 Mg Tablet) 100 mg PO BEDTIME [facility] [place] Last Admin: 10/30/22 21:41 Dose: 100 mg Home Medications Medication Instructions Recorded Confirmed Last Taken Type aspirin 81 mg tablet 81 mg PO DAILY 06/11/21 10/29/22 Unknown History benztropine 1 mg tablet 1 mg PO BEDTIME 06/11/21 10/29/22 Unknown History clonazepam 0.5 mg tablet 0.5 mg PO BID 06/11/21 10/29/22 Unknown History risperidone 0.5 mg tablet 0.5 mg PO DAILY 06/11/21 10/29/22 Unknown History risperidone 3 mg tablet 3 mg PO BEDTIME 06/11/21 10/29/22 Unknown History ticagrelor 90 mg tablet (Brilinta) 90 mg PO BID 06/11/21 10/29/22 Unknown Hist ory trazodone 100 mg tablet 100 mg PO BEDTIME 06/11/21 10/29/22 Unknown History metoprolol succinate 25 mg 1 tab PO DAILY 06/12/21 10/29/22 Unknown History tablet,extended release 24 hr albuterol sulfate 90 mcg/actuation 2 puff inhalation Q4H PRN Wheezing 10/16/22 10/29/22 Unknown History aerosol inhaler (ProAir HFA) Physical Exam Vital Signs: Vital Signs: Last Vital Signs Temp 98.0 F 10/31/22 11:00 Pulse 86 10/31/22 11:00 Resp 18 10/31/22 11:00 BP 107/64 10/31/22 11:00 Pulse Ox 100 10/31/22 11:00 O2 Del Method 10/31/22 11:00 BMI result Body Mass Index 26.2 Const: General: comfortable and no acute distress Or ientation/consciousness: patient oriented x3 HEENT: Other: Unremarkable Head: Yes normal to inspection Neck: Neck: Yes normal visual inspection Chest: Chest palpation & inspection: normal inspection of the chest Resp: Auscultation: clear to auscultation bilaterally Cardio: Palpation: normal PMI Heart sounds: S1 normal heart sound present, S2 normal heart sound present, no gallops, no murmurs and no rubs GI: Palpation (GI): Soft to palpation Back/Spine/Pelvis: Other: unremarkable Skin: General skin exam: no rashes or lesions noted Neuro: General: patient oriented x3 Extrem: General: Yes normal to inspection Psych: Mental Status: mental status grossly normal Objective Labs and Meds Result diagrams: 10/31/22 06:00 10/31/22 06:00 Lab results: Laboratory Results - last 24 hr 10/29/22 10/30/22 10/31/22 11:53 16:06 06:00 WBC 6.1 7.3 RBC 4.70 D 4.68 Hgb 9.5 L D 9.3 L Hct 31.6 L D 31.4 L MCV 67.2 L D 67.1 L MCH 20.2 L 19.9 L MCHC 30.1 L 29.6 L RDW 25.6 H 25.5 H Plt Count 421 H 460 H MPV 9.0 L 9.5 Absolute Nucleated RBC 0.000 0.020 H Nucleated RBC % (auto) 0.0 0.3 H Sodium Potassium Chloride Carbon Dioxide Anion Gap BUN Creatinine Estim Creat Clear Calc Estimated GFR Random Glucose Calcium Crossmatch See Detail 10/31/22 06:00 WBC RBC Hgb Hct MCV MCH MCHC RDW Plt Count MPV Absolute Nucleated RBC Nucleated RBC % (auto) Sodium 138 Potassium 3.9 Chloride 106 Carbon Dioxide 22 Anion Gap 14 BUN 9 D Creatinine 0.71 Estim Creat Clear Calc 94.7 Estimated GFR > 60 Random Glucose 84 Calcium 8.6 Crossmatch Assessment and Plan (1) Anemia: Qualifiers: Anemia type: unspecified type Qualified Code(s): D64.9 - Anemia, unspecified Status: Acute (2) CAD (coronary artery disease): Status: Acute Plan Per last office note, inferior STEMI in April of 2020. Underwent primary PCI. Actual anatomy was not mentioned in the office note. However, do not see any good reason for dual antiplatelet therapy for more than 2 years. If there is concern for GI bleeding, can stop Brilinta and keep him only on aspirin. 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 Time Spent With Patient Time: Total time managing care of this patient today ____ minutes. Procedures Date of Service Date of Service: 10/31/22
--- NOTE | 2022-10-31 13:00 | HO.POSTANES ---
Post Anesthesia Evaluation Post Anesthesia Evaluation Vital Signs: Patient seen 0n 12/14 1300pm, 107/64, 86, 18, 98.0F, 100%RA Anesthesia: Monitored Mental Status: Awake Pain Control: Satisfactory Nausea/Vomiting: None Hydration: Adequate Anesthesia-Related Issues: No Anes. Related Issues
--- NOTE | 2022-10-31 13:12 | PM.DS ---
DS: Providers Provider Date of Service: 10/31/22 Date of admission: 10/29/22 14:31 Primary care physician: [facility] Consults: 10/29/22 13:15 Consult to Gastroenterology Stat Consulting Provider: Amari Bonilla Reason for consultation: anemia Has provider been notified: Yes 10/29/22 14:42 Consult to Gastroenterology Routine Consulting Provider: Amari Bonilla Reason for consultation: Acute anemia, suspected UGI bleed Has provider been notified: No 10/30/22 14:41 Consult to Cardiology Routine Consulting Provider: Pavel Lara Reason for consultation: on dual antiplatelet hx of stent 2 yrs ago Has provider been notified: No DS: Diagnosis Discharge Diagnosis (1) Anemia: Status: Acute (2) CAD (coronary artery disease): Status: Acute DS: Summary Hospital Course Hospital Course: Chief Complaint: Anemia Pt is a 57-year-old male with a PMH significant for CAD s/p STEMI with stent in 2019 on aspirin and brilinta, HTN, and schizoaffective disorder recently DC on 10/18 from [facility] who presents to the ED today for evaluation of anemia ongoing since September, but worsened with latest lab.? The patient was called by his PCP with results from a lab from last that showed decreasing H&H with elevated BUN; the PCP was concerned that he would need a blood transfusion.? Of note, the patient is confused at baseline which makes obtaining HPI difficult. The patient is accompanied by his N worker who claims she had to fight him to get him here.? Patient has a he has been been fatigued lately and that his head ?spins? when he stands up.? Patient also complains of heartburn which is relieved by eating food and says that he sometimes has some difficulty swallowing.? Patient furthermore states that he has diffuse periumbilical belly pain.? His behavioral health worker also notes that he has complained of blood in his stool previously.? Patient denies nausea or vomiting, fever chills, or headache. In the ED, labs were significant for H&H of 8.1/28.5 (down from 9.9/34.8 on 10/16), MCV of 62.9, iron of 8, and iron saturation of 2%.? Stool was positive for occult blood.? Tox screen is positive for benzos and marijuana. In the ED patient was treated with IV pantoprazole.? The patient will be admitted to the hospital for acute iron deficiency anemia treatment and evaluation. Hospital course 57-year-old male with a PMH significant for CAD s/p STEMI with stent in 2019 on aspirin and brilinta, HTN, and schizoaffective disorder recently DC on 10/18 from our [facility] who presents to the ED today for evaluation of anemia ongoing since September but worsened with latest lab. Pt will be admitted for treatment for anemia and workup for UGI bleed. # acute blood loss anemia,iron studies consistent with significant iron deficiency, stool positive for occult blood, patient treated with 2 units of packed RBC aspirin and Brilinta were held, patient received 1 dose of IV iron Receive IV Protonix, Hematocrit improved, patient underwent both upper endoscopy and colonoscopy, that showed mild distal esophagitis, antral and duodenal biopsies were taken there was a 6 mm polyp removed at 50 cm on colonoscopy no active source of bleeding found and GI recommended to resume anti-platelet agent patient seen by photography professor they recommend to hold Brilinta and continue aspirin patient was also started on Prilosec 20 mg daily he is now being discharged home with with recommendation for outpatient PCP/GI follow-up # history of coronary artery disease status post stent placement continue beta blockers, recommend to continue aspirin and discontinue Brilinta recommend close outpatient Cardiology follow-up # mental health continue home meds Klonopin, Cogentin, risperidone and trazodone. # HTN- BP stable continue home meds metoprolol 25 mg and Norvasc 2.5 mg #HLD- continue Zetia ? Time Spent with Patient Time attestation: Total time managing care of this patient today ____ minutes. Discharge coordination time: Greater than 30 minutes Quality: Safe Use of Opioids Does Pt have an Active Cancer Diagnosis on the Problem List?: No Quality: Stroke Does the patient have a stroke diagnosis?: No Physical Exam Vital Signs: Vital Signs: Last Vital Signs Temp 98.0 F 10/31/22 11:00 Pulse 86 10/31/22 11:00 Resp 18 10/31/22 11:00 BP 107/64 10/31/22 11:00 Pulse Ox 100 10/31/22 11:00 O2 Del Method 10/31/22 11:00 BMI result Body Mass Index 26.2 Const: Other: General resting comfortably, in no acute distress. Anicteric sclera? Neck? supple no JVD. CVS? regular rate rhythm, Respiratory lungs clear to auscultation, no respiratory distress, no wheeze, no rhonchi. Gastrointestinal abdomen soft, nontender, bowel sounds audible, no guarding , no rigidity. Extremities no edema. Neuro nonfocal , hand tremors Skin no rash/pale DS: Data Data Completed and Pending Pending studies at discharge: Pending at discharge 10/30/22 13:23 Surgical [PTH] Routine Labs on day of discharge: Laboratory Results - last 24 hr 10/29/22 10/30/22 10/31/22 11:53 16:06 06:00 WBC 6.1 7.3 RBC 4.70 D 4.68 Hgb 9.5 L D 9.3 L Hct 31.6 L D 31.4 L MCV 67.2 L D 67.1 L MCH 20.2 L 19.9 L MCHC 30.1 L 29.6 L RDW 25.6 H 25.5 H Plt Count 421 H 460 H MPV 9.0 L 9.5 Absolute Nucleated RBC 0.000 0.020 H Nucleated RBC % (auto) 0.0 0.3 H Sodium Potassium Chloride Carbon Dioxide Anion Gap BUN Creatinine Estim Creat Clear Calc Estimated GFR Random Glucose Calcium Crossmatch See Detail 10/31/22 06:00 WBC RBC Hgb Hct MCV MCH MCHC RDW Plt Count MPV Absolute Nucleated RBC Nucleated RBC % (auto) Sodium 138 Potassium 3.9 Chloride 106 Carbon Dioxide 22 Anion Gap 14 BUN 9 D Creatinine 0.71 Estim Creat Clear Calc 94.7 Estimated GFR > 60 Random Glucose 84 Calcium 8.6 Crossmatch Discharge Plan Discharge Anticipated Discharge Date/Time: 10/31/22 11:25 Patient Disposition: Home, Self-Care Discharge Diagnosis: Acute blood loss anemia Iron deficiency Referrals: [facility] [Primary Care Provider] - 1 Week Discharge Medications: New omeprazole 20 mg Capsule,Delayed Release(Dr/Ec) 20 mg PO DAILY@0630 Qty: 30 0RF ferrous sulfate 325 mg (65 mg iron) tablet,delayed release (DR/EC) 325 mg PO BID Qty: 60 0RF Continued amlodipine 2.5 mg tablet 2.5 mg PO DAILY Qty: 90 3RF ezetimibe [Zetia] 10 mg tablet 10 mg PO DAILY 90 Days Qty: 90 3RF clonazepam 0.5 mg Tablet 0.5 mg PO BID risperidone 3 mg Tablet 3 mg PO BEDTIME trazodone 100 mg Tablet 100 mg PO BEDTIME benztropine 1 mg Tablet 1 mg PO BEDTIME aspirin 81 mg Tablet 81 mg PO DAILY risperidone 0.5 mg Tablet 0.5 mg PO DAILY metoprolol succinate 25 mg tablet extended release 24 hr 1 tab PO DAILY albuterol sulfate [ProAir HFA] 90 mcg/actuation HFA aerosol inhaler 2 puff inhalation Q4H PRN (Reason: Wheezing) mirtazapine 15 mg Tablet 15 mg PO BEDTIME Qty: 30 0RF Discontinued Brilinta 90 mg Tablet 90 mg PO BID Discharge Orders: Discharge Order (Routine); Ordered 10/31/22 Ordered By: Judi Corado Diet: Low fat, low cholesterol Activity on Discharge: As tolerated Stand Alone Forms: Patient Portal Discharge page Care Plan Goals: started on Prilosec 20 mg daily, diagnosed to have mild distal esophagitis, 6 mm polyp removed from colon, follow biopsy report from primary care physician take iron supplement twice daily Stop Brilinta Take stool softener if developed constipation with iron supplement. Health Concerns: Continue all home medications as before except stop Brilinta Plan of Treatment: Outpatient follow-up with primary care physician obtain results of antral and duodenal biopsies call for appointment Outpatient follow-up with Cardiology in 3-4 months Assessment: As above
--- NOTE | 2022-10-31 14:17 | MHC.CM.PN ---
HOME - SELF CARE RN AWARE OF PLAN
== END 2022-10-31 15:25 | disposition home or self-care (01) | DRG 243 ==
LOC: HO.ED 13:04 → HO.EDOVER 14:51 → HO.S3 14:58
PROVIDERS: Internal Medicine Gastroenterology; Nurse Practitioner Family; Admitting Provider Student in an Organized Health Care Education/Training Program; Emergency Provider Emergency Medicine; PCP Registered Nurse; Visit Provider Hospitalist
PROC: 0DB98ZX Excision of Duodenum, Via Natural or Artificial Opening Endoscopic, Diagnostic (ICD-10-PCS; principal; 2022-10-30 12:50)
DX: K20.91 Esophagitis, unspecified with bleeding (principal); D62 Acute posthemorrhagic anemia; F25.9 Schizoaffective disorder, unspecified; I10 Essential (primary) hypertension; K63.5 Polyp of colon; I25.10 Atherosclerotic heart disease of native coronary artery without angina pectoris; I25.2 Old myocardial infarction; J45.909 Unspecified asthma, uncomplicated; E78.5 Hyperlipidemia, unspecified; Z20.822 Contact with and (suspected) exposure to COVID-19; Z87.891 Personal history of nicotine dependence; Z91.013 Allergy to seafood; Z88.5 Allergy status to narcotic agent; Z88.6 Allergy status to analgesic agent; Z79.82 Long term (current) use of aspirin; Z79.899 Other long term (current) drug therapy
CPT/HCPCS: 36415; 80048; 80076; 82272; 82607; 82746; 83540; 85025; 85027; 85610; 86850; 86900; 86901; 86923; 87635; 88305; 88342; 99285; J1756; J2250; P9016

== ENCOUNTER 2022-11-23 09:55 | Outpatient (REF) | payer MEDICAID, SELFPAY ==
--- NOTE | 2022-11-23 | PFT_ITS ---
INDICATION: COPD. SPIROMETRY: FEV1 to FVC of 79% with an FEV1 of 2.82 L, which is 94% predicted and an FVC of 3.55 L, which is 91% predicted. No significant response to bronchodilators noted. Maximum voluntary ventilation 49% predicted. LUNG VOLUMES: Total lung capacity 94% predicted with a residual volume of 97% predicted. DIFFUSION CAPACITY: Could not be complete due to multiple attempts and unable to meet ATS standards. Flow volume loop. There appears to be some sawtooth pattern to the inspiratory flow. COMPARISONS: None. INTERPRETATION: No obstructive nor restrictive ventilatory defects identified. No significant response to bronchodilators noted. There is a moderate decrease in maximum voluntary ventilation, which could be secondary to deconditioning, although cannot rule out neuromuscular conditions. Lung volumes are within normal limits. The flow volume loop appears to show some fasciculations of the inspiratory flow, which could be secondary to redundant tissue of the upper airway and vocal cord dysfunction. Again, diffusion capacity could not be completed. Clinical correlation warranted. MD JAYJAY Walter/MODRuthie / [id number]
== END 2022-11-23 09:56 | disposition home or self-care (01) ==
LOC: HO.RESP 09:55
PROVIDERS: PCP Registered Nurse; Visit Provider Registered Nurse
DX: J44.9 Chronic obstructive pulmonary disease, unspecified (principal)
CPT/HCPCS: 94060; 94727

== ENCOUNTER → 2022-11-30 12:44 | Outpatient (REF) | payer MEDICAID, SELFPAY ==
--- NOTE | 2022-11-30 12:52 | HM_ITS ---
Conclusion: 1. Patient was monitored for total period of 1 day and 23 hours 2. Baseline was normal sinus rhythm with average heart rate of 70 beats per minute 3. Rare PACs noted 4. No significant pauses or bradycardia noted 5. No patient reported events MTDD
== END ==
LOC: HO.CARD 12:44
PROVIDERS: PCP Registered Nurse; Visit Provider Internal Medicine Cardiovascular Disease
DX: R07.9 Chest pain, unspecified (principal); R00.2 Palpitations
CPT/HCPCS: 93225

== ENCOUNTER → 2022-12-06 14:10 | Outpatient (BNVA) | payer MEDICAID, SELFPAY | PROVIDERS: PCP Registered Nurse; Referring Provider Registered Nurse; Visit Provider Internal Medicine Cardiovascular Disease | DX: I25.10 Atherosclerotic heart disease of native coronary artery without angina pectoris (principal); I10 Essential (primary) hypertension; D64.9 Anemia, unspecified; F25.9 Schizoaffective disorder, unspecified | CPT/HCPCS: 99212 ==

== ENCOUNTER 2023-01-11 14:17 | Outpatient (REF) | payer MEDICAID, SELFPAY ==
--- NOTE | ~2023-01-11 | CT_ITS ---
EXAMINATION: CT CHEST SCREENING CLINICAL INFORMATION: Current smoker with [id number] history of smoking. Patient 57 years of age. COMPARISON: None. TECHNIQUE: Multidetector volumetric CT imaging of the chest is performed without contrast using low dose technique. Additional 2D coronal and sagittal reformatted images and axial 3D maximum intensity projection (MIP) images are generated on the CT workstation. This CT examination was performed using dose optimization techniques as appropriate, variously including the following: *Automated exposure control *Adjustment of mA and/or kV according to patient size (this includes techniques or standardized protocols for targeted exams where dose is matched to indication/reason for exam; i.e. extremities or head) *Use of iterative reconstruction technique DLP: 44 mGy-cm. FINDINGS: Breathing motion artifact is present. LUNGS: Central airways are patent. There is some central bronchial wall thickening present without evidence of bronchiectasis. There are mild changes of centrilobular emphysema seen bilaterally. Sub-4 mm scattered densities present. Calcified granulomas present. MEDIASTINUM: Heart normal size. Right coronary artery stent seen in place. There is some calcified plaque within a right coronary artery branch. No thoracic aortic aneurysm. No mediastinal or hilar lymphadenopathy is appreciated. CORONARY ARTERY CALCIFICATION: Present. PLEURA: There is no pleural effusion. No pleural mass or thickening. AXILLA: No lymphadenopathy. UPPER ABDOMEN: Unremarkable. OSSEOUS STRUCTURES: No suspicious abnormality appreciated. CT/CT lung screening IMPRESSION: Old granulomatous disease. Mild changes of centrilobular emphysema. No suspicious lung nodules identified. ASSESSMENT: Lung-RADS category 2: Benign. RECOMMENDATION: Routine annual low-dose CT screening in 12 months.
== END 2023-01-11 14:18 | disposition home or self-care (01) ==
LOC: HO.CT 14:17
PROVIDERS: Visit Provider Physician Assistant Medical
DX: Z87.891 Personal history of nicotine dependence (principal)
CPT/HCPCS: 71271; G0296

== ENCOUNTER 2023-02-18 11:10 | Outpatient (REF) | payer MEDICAID, SELFPAY ==
--- NOTE | ~2023-02-18 | XR_ITS ---
EXAMINATION: XR CHEST CLINICAL INFORMATION: Chest pain with palpitations COMPARISON: None available. TECHNIQUE: 2 views of the chest were obtained. FINDINGS: No significant abnormality is noted involving the heart, lungs, mediastinum, bony thorax or soft tissues. XR/XR chest 2V IMPRESSION: Unremarkable chest examination.
== END 2023-02-18 11:11 | disposition home or self-care (01) ==
LOC: HO.XRAY 11:10
PROVIDERS: PCP Registered Nurse; Visit Provider Registered Nurse
DX: R07.89 Other chest pain (principal)
CPT/HCPCS: 71046

== ENCOUNTER → 2023-05-09 13:53 | Outpatient (BNVA) | payer MEDICAID, SELFPAY | PROVIDERS: PCP Registered Nurse; Visit Provider Internal Medicine | DX: J44.9 Chronic obstructive pulmonary disease, unspecified (principal); R05.9 Cough, unspecified; Z87.891 Personal history of nicotine dependence | CPT/HCPCS: 99202 ==

== ENCOUNTER → 2023-05-16 11:27 | Outpatient (BNVA) | payer MEDICAID, SELFPAY | PROVIDERS: PCP Registered Nurse; Visit Provider Physician Assistant | DX: D36.9 Benign neoplasm, unspecified site (principal); Z87.19 Personal history of other diseases of the digestive system | CPT/HCPCS: 99202 ==

== ENCOUNTER 2023-07-08 14:54 | Outpatient (AMB) | payer MEDICAID, SELFPAY ==
[2023-07-08 15:17] VITALS: BP 112/76; PULSE 50; BMI 30.2
--- NOTE | 2023-07-08 15:17 | A.OFFVIS_ITS ---
Intake Vital Signs 07/08/23 15:17 Height 5 ft 1 in Weight 160 lb 0.889 oz BMI 30.2 BP 112/76 Blood Pressure Location Lt brachial Position Sitting Pulse 50 Pulse Source Monitor Intake Visit Reasons: 6M follow up Intake Note: 6 month follow up with EKG. Needle Felt Making Machine Operator Required: Yes Needle Felt Making Machine Operator Language: Addiction Nurse Name: Bonny- Fish Drier. Accompanied by: Employee Allergies acetaminophen Allergy (Unknown, Verified 07/08/23 15:20) PANADOL = ACETAMINOPHEN SHELLFISH Allergy (Mild, Uncoded 07/08/23 15:20) PATIENT REPORTS BURNING SENSATION THROUGHOUT OPIATES Allergy (Unknown, Uncoded 07/08/23 15:20) BECAME ADDICTED PANADOL Allergy (Unknown, Uncoded 07/08/23 15:20) UNKNOWN Medication List - Last Reconciled 07/08/23 by Bronson Butler MD albuterol sulfate 90 mcg/actuation (ProAir HFA) 2 puffs inhalation Q4H PRN amlodipine 2.5 mg PO DAILY aspirin 81 mg PO DAILY benztropine 1 mg PO BEDTIME clonazepam 0.5 mg PO BID ezetimibe 10 mg PO DAILY ferrous sulfate 325 mg PO DAILY folic acid 1 mg PO DAILY metoprolol succinate ER 1 tab PO DAILY mirtazapine 30 mg PO BEDTIME omeprazole 20 mg PO DAILY@0630 risperidone 3 mg PO BEDTIME risperidone 0.5 mg PO DAILY thiamine HCl (vitamin B1) 100 mg PO DAILY trazodone 100 mg PO BEDTIME HPI HPI Comments History of Present Illness Details 58-year-old gentleman here for follow-up. He has history of coronary disease with previous PCI. Recently had chest discomfort and underwent Lexiscan which was normal. In the interim he has been admitted to hospital with severe anemia and GI blood loss. He was transfused and his Brilinta was stopped. He was sent home with baby aspirin. He underwent endoscopy which showed duodenitis but did not show any obvious reason for bleeding. He has been on omeprazole. He is supposed to be on baby aspirin. He had blood workup today to reassess his anemia. Denying any chest discomfort. He is saying his taking his medications regularly. He was accompanied by nurse from [employer]. 07/08/23: He returns for follow-up. He is denying any exertional symptoms. No chest discomfort shortness of breath in particular. Taking medications re gularly. He is on baby aspirin. He had repeat blood workup done by his primary care physician as per the [facility] and hemoglobin was stable. No bleeding concerns currently. [facility] Medical History BPH (benign prostatic hyperplasia) CAD (coronary artery disease) (~2019) Chest pain COPD (chronic obstructive pulmonary disease) Cough History of hepatitis C History of ST elevation myocardial infarction (STEMI) (~2019) Hyperlipidemia Hypertension Palpitations Personal history of nicotine dependence Schizoaffective disorder Tubular adenoma of colon (~2021) Surgical History History of colonoscopy (~2021) History of esophagogastroduodenoscopy (EGD) (~2021) History of heart artery stent (~2019) History of left inguinal hernia repair (~2007) History of right inguinal hernia repair (~2003) Family History Father Edema Mother Developmental delay Social History Household Members: Family Housing: Apartment Do you presently have visiting nurse or other home services: Yes Alcohol intake: current Alcohol intake frequency: does not drink Patient Tobacco Use Status: Current everyday Tobacco user Tobacco use type: Cigarette Cigarette Packs Per Day: 20 Cigarettes Per Day: 1 Years Smoked: onset 12yo, 1ppd x 44yrs, 40pyh - e-Cigarette/Vaping Use: Never Used Substance Use Type: Marijuana service: No Current occupational status: disabled Sexual orientation: Don't Know Review of Systems Const Denies weakness ENT Denies dizziness Card Denies chest pain, Denies chest pain with activity, Denies syncope, Denies rapid heart rate, Denies pedal edema, Denies edema, Denies leg edema, Denies lightheadedness, Denies palpitations, Denies dyspnea, Denies dyspnea on exertion and Denies orthopnea Resp Denies cough, Denies dyspnea and Denies dyspnea on exertion GI Denies hematochezia and Denies change in stool character Musc Denies abnormal gait, Denies muscle cramps, Denies muscle weakness, Denies numbness, Denies radiating pain into limb and Denies tingling Neuro Denies abnormal gait, Denies dizziness, Denies syncope, Denies numbness, Denies tingling and Denies weakness Endo Denies palpitations Physical Exam Vital Signs: Last Vital Signs Pulse 50 07/08/23 15:17 BP 112/76 07/08/23 15:17 BMI result Body Mass Index 30.2 GENERAL APPEARANCE: in no acute distress. NECK/THYROID: no carotid bruit, no jugular venous distention. SKIN: no suspicious lesions, warm and dry. HEART: no murmurs, regular rate and rhythm, S1, S2 normal. LUNGS: Clear to auscultation. ABDOMEN: normal, bowel sounds present, soft, nontender, nondistended. EXTREMITIES: no clubbing, cyanosis, or edema. PERIPHERAL PULSES: equal. Office Procedures EKG Details: Sinus bradycardia 50 beats per minute, inferior infarct, no repolarization, QTC 443 milliseconds. [id number], Complete Assessment & Plan Assessment & Plan (1) Hypertension: Code(s): I10 - Essential (primary) hypertension (2) Hyperlipidemia: Code(s): E78.5 - Hyperlipidemia, unspecified (3) CAD (coronary artery disease): Onset Date: ~2019 Comment: (Inferior STEMI in 2019 - s/p PCI to RCA) Code(s): I25.10 - Atherosclerotic heart disease of [place] coronary artery without angina pectoris Plan 58-year-old gentleman who is here for follow-up. He has background history of inferior ST-elevation myocardial infarction when he had RCA PCI. In October 2022 he was in the hospital with GI bleed. He was transfused subsequently stabilized with repeat blood workup showing no anemia as per the [facility]IC[facility]. He has been on baby aspirin. Denying any significant symptoms currently. I think he is stable. Blood pressure control is also good. He is on amlodipine 2.5 mg and metoprolol succinate 25 mg daily. He is on ezetimibe 10 mg and apparently has not been on statin therapy. He does not have any allergy to statins. I think he should be started on atorvastatin 40 mg daily. Thank you for allowing me to participate in the care of your patient. Please feel free to contact me if you have any questions. Medications: New atorvastatin 40 mg PO BEDTIME 60 tabs 3RF I25.10 - Atherosclerotic heart disease of [place] coronary artery without angina pectoris Coding Level of Care Code Est Pt Level 4 (88290) Diagnoses Hypertension I10 Hyperlipidemia E78.5 CAD (coronary artery disease) I25.10 CPT Codes EKG - CPT: 88273-[id number], Complete ([id number])
== END 2023-07-08 15:34 | disposition home or self-care (01) ==
PROVIDERS: PCP Registered Nurse; Referring Provider Registered Nurse; Visit Provider Internal Medicine Cardiovascular Disease
DX: I10 Essential (primary) hypertension (principal); E78.5 Hyperlipidemia, unspecified; I25.10 Atherosclerotic heart disease of native coronary artery without angina pectoris
CPT/HCPCS: 93010; 99214

== ENCOUNTER → 2023-07-08 14:54 | Outpatient (BNVA) | payer MEDICAID, SELFPAY | PROVIDERS: PCP Registered Nurse; Referring Provider Registered Nurse; Visit Provider Internal Medicine Cardiovascular Disease | DX: I25.10 Atherosclerotic heart disease of native coronary artery without angina pectoris (principal); I10 Essential (primary) hypertension; Z98.61 Coronary angioplasty status; E78.5 Hyperlipidemia, unspecified | CPT/HCPCS: 93005; 99212 ==

== ENCOUNTER 2023-08-29 13:49 | Outpatient (AMB) | payer MEDICAID, SELFPAY ==
[2023-08-29 13:54] VITALS: BP 117/66; PULSE 73; O2SAT 96; BMI 30.8
--- NOTE | 2023-08-29 13:54 | MHC.OFFVIS ---
Intake Vital Signs 08/29/23 13:54 Height 5 ft 1 in Weight 163 lb 2.273 oz BMI 30.8 BP 117/66 Blood Pressure Location Lt brachial Position Sitting Pulse 73 Pulse Source Doppler Pulse Oximetry (%) 96 Oxygen Delivery Method Room Air Intake Visit Reasons: copd Intake Note: Patient is here for COPD follow up, patient stated he is feeling well Allergies acetaminophen Allergy (Unknown, Verified 08/29/23 14:14) PANADOL = ACETAMINOPHEN SHELLFISH Allergy (Mild, Uncoded 08/29/23 14:14) PATIENT REPORTS BURNING SENSATION THROUGHOUT OPIATES Allergy (Unknown, Uncoded 08/29/23 14:14) BECAME ADDICTED PANADOL Allergy (Unknown, Uncoded 08/29/23 14:14) UNKNOWN Medication List - Last Reconciled 08/29/23 by Jimi Ramirez MD albuterol sulfate 90 mcg/actuation (ProAir HFA) 2 puffs inhalation Q4H PRN amlodipine 2.5 mg PO DAILY aspirin 81 mg PO DAILY atorvastatin 40 mg PO BEDTIME benztropine 1 mg PO BEDTIME clonazepam 0.5 mg PO BID ezetimibe 10 mg PO DAILY ferrous sulfate 325 mg PO DAILY folic acid 1 mg PO DAILY metoprolol succinate ER 1 tab PO DAILY mirtazapine 30 mg PO BEDTIME omeprazole 20 mg PO DAILY@0630 risperidone 3 mg PO BEDTIME risperidone 0.5 mg PO DAILY thiamine HCl (vitamin B1) 100 mg PO DAILY trazodone 100 mg PO BEDTIME Do you need a note to return to daycare/school/sports/work: No HPI copd HPI Details 58 years old gentleman a case of schizophrenic ,disorder is brought in by his case specialist. Continues to smoke 1 pack of cigarettes a day. Complains of mild intermittent cough but no wheezing or shortness of breath. He denies any dyspnea on exertion, Uses albuterol 1 or 2 puffs only p.r.n. for cough or wheezing. He is not on any long-acting controller agent. He does participate in annual lung screening program, last low-dose CT scan in January 2023 was category 2 benign. [facility] Medical History COPD (chronic obstructive pulmonary disease) Cough Personal history of nicotine dependence BPH (benign prostatic hyperplasia) Hyperlipidemia History of hepatitis C Tubular adenoma of colon (~2021) History of ST elevation myocardial infarction (STEMI) (~2019) Chest pain Hypertension Schizoaffective disorder CAD (coronary artery disease) (~2019) Palpitations Surgical History History of heart artery stent (~2019) History of colonoscopy (~2021) History of esophagogastroduodenoscopy (EGD) (~2021) History of right inguinal hernia repair (~2003) History of left inguinal hernia repair (~2007) Family History Father Edema Mother Developmental delay Social History Household Members: Family Housing: Apartment Do you presently have visiting nurse or other home services: Yes Alcohol intake: current Alcohol intake frequency: does not drink Patient Tobacco Use Status: Current everyday Tobacco user Tobacco use type: Cigarette Cigarette Packs Per Day: 20 Cigarettes Per Day: 1 Years Smoked: onset 12yo, 1ppd x 44yrs, 40pyh - e-Cigarette/Vaping Use: Never Used Substance Use Type: Marijuana service: No Current occupational status: disabled Sexual orientation: Don't Know Review of Systems Const All systems reviewed & are unremarkable except as noted in HPI and below Eyes Reports no additional complaints ENT Reports no additional complaints Card Denies chest pain, Denies syncope, Denies irregular heart rhythm and Denies leg edema Resp Reports as per HPI GI Reports heartburn (GERD SYMPTOMS CONTROLLED WITH OMEPRAZOLE) Reports no additional complaints Musc Reports no additional complaints Skin/Breast Reports system reviewed and no additional complaints, except as documented Neuro Reports no additional complaints and Denies syncope Psych Reports anxiety, Reports mood swings and Reports other (BEING TREATED FOR SCHIZOPHRENIC DISORDER ) Endo Reports no additional complaints Maurice/Lymph Reports no additional complaints Physical Exam Vital Signs: Last Vital Signs Pulse 73 08/29/23 13:54 BP 117/66 08/29/23 13:54 Pulse Ox 96 08/29/23 13:54 Oxygen Delivery Method Room Air 08/29/23 13:54 BMI result Body Mass Index 30.8 Const General: healthy appearing, comfortable, no acute distress, alert and awake Orientation/consciousness: patient oriented x3 HEENT Head: Yes normal to inspection General nose exam: No nasal polyps present and No nasal discharge present Face and sinus: Yes sinuses nontender Mouth: oropharynx normal Throat: Yes posterior oropharynx normal Eyes General: appearance normal, both eyes and all related structures Neck Neck: Yes normal visual inspection, Yes no lymphadenopathy, Yes trachea midline and Yes no JVD Thyroid: Thyroid normal Chest Chest palpation & inspection: normal inspection of the chest, normal palpation of entire chest wall and no tenderness Resp Other: PERCUSSION NOTE IS RESONANT, BREATH SOUNDS ARE EQUAL ON BOTH SIDES. NO WHEEZES RHONCHI OR CREPITATIONS ARE HEARD. Cardio Palpation: normal PMI Rate: regular rate Rhythm: regular rhythm Heart sounds: no gallops and no murmurs Peripheral pulses: Peripheral pulses 2+ throughout GI Palpation (GI): Soft to palpation, nontender, No hepatosplenomegaly present and no masses Auscultation: normal bowel sounds Back/Spine/Pelvis Thoracic/Lumbar Spine: thoracic and lumbar spine normal to inspection Skin General skin exam: no rashes or lesions noted Neuro General: patient oriented x3 and no focal motor deficits Cranial nerves: Yes CN's II-XII intact bilaterally Extrem General: Yes normal to inspection, Yes no clubbing, cyanosis or edema and Yes no calf tenderness Psych Appearance: grossly normal Speech and movement: Normal speech and movement present Assessment & Plan Assessment & Plan (1) Personal history of nicotine dependence: Comment: (former smoker, onset 12yo, 1ppd x 44yrs, 40pyh - quit 2021) but he has resumed smoking again at 1 pack of cigarettes a day. During conversation he expresses that he is going to continue smoking. Because of his psychiatric problem ,it is difficult to convince him to quit smoking, I tried to talk to him and advised that at least he should cut down the number of cigarettes. He should continue in the annual lung screening program. Code(s): Z87.891 - Personal history of nicotine dependence (2) Cough: Comment: He has mild intermittent cough which is most likely related to smoking. Code(s): R05.9 - Cough, unspecified (3) COPD (chronic obstructive pulmonary disease): Comment: As per pulmonary function test he did not have evidence of any obstructive airway disorder, except MVV was decreased and he could not do maneuvers for DLCO. TX: He ends up using albuterol HFA 3 times a day. I explained to him that he does not have to use regularly. And he should use the albuterol inhaler only PRN if he has persistent cough or or wheezing. Code(s): J44.9 - Chronic obstructive pulmonary disease, unspecified Coding Level of Care Code Est Pt Level 3 (77778) Diagnoses Personal history of nicotine dependence Z87.891 Cough R05.9 COPD (chronic obstructive pulmonary disease) J44.9
== END 2023-08-29 14:35 | disposition home or self-care (01) ==
PROVIDERS: PCP Registered Nurse; Visit Provider Internal Medicine
DX: Z87.891 Personal history of nicotine dependence (principal); R05.9 Cough, unspecified; J44.9 Chronic obstructive pulmonary disease, unspecified
CPT/HCPCS: 99213

== ENCOUNTER → 2023-08-29 13:49 | Outpatient (BNVA) | payer MEDICAID, SELFPAY | PROVIDERS: PCP Registered Nurse; Visit Provider Internal Medicine | DX: J44.9 Chronic obstructive pulmonary disease, unspecified (principal); R05.9 Cough, unspecified; Z87.891 Personal history of nicotine dependence | CPT/HCPCS: 99212 ==

== ENCOUNTER 2023-09-17 14:31 | Outpatient (REF) | payer MEDICAID, SELFPAY ==
[2023-09-17 16:39] LABS: Alanine Aminotransferase 16 U/L (0-40); Albumin Level 4.3 g/dL (3.5-5.0); Alkaline Phosphatase 104 U/L (39-117); Anion Gap 13 (12-20); Aspartate Amino Transferase 24 U/L (5-37); Bilirubin Total 0.4 mg/dL (0.0-1.0); Blood Urea Nitrogen 15 mg/dL (9-16); Calcium 9.5 mg/dL (8.4-10.2); Carbon Dioxide 21 mmol/L (22-29); Chloride 105 mmol/L (96-108); Cholesterol 110 mg/dL (<200); Estimated Glomerular Filt Rate > 60; Glucose Random 129 mg/dL (60-115); HDL Cholesterol 31 mg/dL (>40); LDL Cholesterol Calculated 63 mg/dL (<100); Potassium 4.2 mmol/L (3.3-5.1); Sodium 135 mmol/L (135-145); Total Protein 7.9 g/dL (6.5-8.0); Triglycerides 80 mg/dL (<150)
== END 2023-09-17 14:32 | disposition home or self-care (01) ==
LOC: HO.HHCL 14:31
PROVIDERS: Visit Provider Registered Nurse
DX: I10 Essential (primary) hypertension (principal)
CPT/HCPCS: 36415; 80053; 80061

== ENCOUNTER 2023-10-21 11:41 | Outpatient (REF) | payer MEDICAID, SELFPAY ==
[2023-10-21 13:28] LABS: MANUAL DIFF FLAG NO
[2023-10-21 14:00] LABS: Basophils Percent Auto 0.4 % (0-2); Eosinophils Absolute Auto 0.1 X10*3/uL (0.0-0.4); Eosinophils Percent Auto 0.6 % (0-4); Hematocrit 45.7 % (42.0-52.0); Hemoglobin 14.7 g/dl (14.0-18.0); Imm Gran Abs Auto 0.04 X10*3/uL (0.00-0.03); Imm Gran Pct Auto 0.5 % (0.0-0.4); Lymphocytes Absolute Auto 1.7 X10*3/uL (1.2-4.9); Mean Corpuscular HGB Conc 32.2 g/dl (31.0-36.0); Mean Corpuscular Hemoglobin 26.7 pg (27.0-33.0); Mean Corpuscular Volume 83.1 fL (80.0-98.0); Mean Platelet Volume 10.8 fL (9.4-12.4); Monocytes Absolute Auto 0.6 X10*3/uL (0.1-1.2); Monocytes Percent Auto 7.9 % (2-11); Neutrophils Absolute Auto 5.7 x10*3/uL (2.0-8.3); Neutrophils Percent Auto 69.6 % (45-73); Platelet Count 213 X10*3/uL (160-400); Red Cell Distribution Width 15.9 % (11.0-16.0); White Blood Count 8.1 X10*3/uL (4.8-10.8)
[2023-10-21 14:20] LABS: Alanine Aminotransferase 16 U/L (0-40); Albumin Level 4.2 g/dL (3.5-5.0); Alkaline Phosphatase 94 U/L (39-117); Anion Gap 10 (12-20); Aspartate Amino Transferase 16 U/L (5-37); Bilirubin Total 0.4 mg/dL (0.0-1.0); Blood Urea Nitrogen 12 mg/dL (9-16); Calcium 9.7 mg/dL (8.4-10.2); Carbon Dioxide 25 mmol/L (22-29); Chloride 108 mmol/L (96-108); Estimated Glomerular Filt Rate > 60; Glucose Random 90 mg/dL (60-115); Magnesium 1.8 mg/dL (1.6-2.6); Potassium 3.6 mmol/L (3.3-5.1); Sodium 139 mmol/L (135-145); Total Protein 7.9 g/dL (6.5-8.0)
[2023-10-21 14:38] LABS: Ferritin 63 ng/mL (20-250)
== END 2023-10-21 11:42 | disposition home or self-care (01) ==
LOC: HO.HHCL 11:41
PROVIDERS: Visit Provider Registered Nurse
DX: E87.8 Other disorders of electrolyte and fluid balance, not elsewhere classified (principal); D64.9 Anemia, unspecified
CPT/HCPCS: 36415; 80053; 82728; 83735; 84100; 85025

== ENCOUNTER 2023-11-13 13:17 | Outpatient (AMB) | payer MEDICAID, SELFPAY ==
[2023-11-13 13:27] VITALS: BP 120/78; PULSE 70; BMI 29.2
--- NOTE | 2023-11-13 13:27 | MHC.OFFVIS ---
Intake Vital Signs 11/13/23 13:27 Height 5 ft 1 in Weight 154 lb 5.177 oz BMI 29.2 BP 120/78 Blood Pressure Location Lt brachial Position Sitting Pulse 70 Intake Visit Reasons: 4 mth f/up Intake Note: 4 month follow-up feeling good Studio Operation Engineer Required: Yes Retail Store Associate: Retail Store Associate Present Accompanied by: psychologist social Allergies acetaminophen Allergy (Unknown, Verified 08/29/23 14:14) PANADOL = ACETAMINOPHEN SHELLFISH Allergy (Mild, Uncoded 08/29/23 14:14) PATIENT REPORTS BURNING SENSATION THROUGHOUT OPIATES Allergy (Unknown, Uncoded 08/29/23 14:14) BECAME ADDICTED PANADOL Allergy (Unknown, Uncoded 08/29/23 14:14) UNKNOWN Medication List - Last Reconciled 11/13/23 by Bronson Butler MD albuterol sulfate 90 mcg/actuation (ProAir HFA) 2 puffs inhalation Q4H PRN amlodipine 2.5 mg PO DAILY aspirin 81 mg PO DAILY atorvastatin 40 mg PO BEDTIME benztropine 1 mg PO BEDTIME clonazepam 0.5 mg PO BID ezetimibe 10 mg PO DAILY ferrous sulfate 325 mg PO DAILY folic acid 1 mg PO DAILY metoprolol succinate ER 25 mg PO DAILY mirtazapine 30 mg PO BEDTIME omeprazole 20 mg PO DAILY@0630 risperidone 3 mg PO BEDTIME risperidone 0.5 mg PO DAILY thiamine HCl (vitamin B1) 100 mg PO DAILY trazodone 100 mg PO BEDTIME HPI HPI Comments History of Present Illness Details 58-year-old gentleman here for follow-up. He has history of coronary disease with previous PCI. Recently had chest discomfort and underwent Lexiscan which was normal. In the interim he has been admitted to hospital with severe anemia and GI blood loss. He was transfused and his Brilinta was stopped. He was sent home with baby aspirin. He underwent endoscopy which showed duodenitis but did not show any obvious reason for bleeding. He has been on omeprazole. He is supposed to be on baby aspirin. He had blood workup today to reassess his anemia. Denying any chest discomfort. He is saying his taking his medications regularly. He was accompanied by nurse from [employer]. 07/08/23: He returns for follow-up. He is denying any exertional symptoms. No chest discomfort shortness of breath in particular. Taking medications regularly. He is on baby aspirin. He had repeat blood workup done by his primary care physician as per the RADIO COMMUNICATION COORDINATOR and hemoglobin was stable. No bleeding concerns currently. 06/13/2023: He returns for follow-up. He is accompanied by his RADIO COMMUNICATION COORDINATOR. He is saying her off and on he gets left-sided discomfort in the chest. He is a vague historian but the story sounds quite non anginal. His blood pressure control is good. Taking medications regularly. No bleeding reported on follow-up. He is taking baby aspirin. [facility] Medical History COPD (chronic obstructive pulmonary disease) Cough Personal history of nicotine dependence BPH (benign prostatic hyperplasia) Hyperlipidemia History of hepatitis C Tubular adenoma of colon (~2021) History of ST elevation myocardial infarction (STEMI) (~2019) Chest pain Hypertension Schizoaffective disorder CAD (coronary artery disease) (~2019) Palpitations Surgical History History of heart artery stent (~2019) History of colonoscopy (~2021) History of esophagogastroduodenoscopy (EGD) (~2021) History of right inguinal hernia repair (~2003) History of left inguinal hernia repair (~2007) Family History Father Edema Mother Developmental delay Social History Household Members: Family Housing: Apartment Do you presently have visiting nurse or other home services: Yes Alcohol intake: current Alcohol intake frequency: does not drink Patient Tobacco Use Status: Current everyday Tobacco user Tobacco use type: Cigarette Cigarette Packs Per Day: 20 Cigarettes Per Day: 1 Years Smoked: onset 12yo, 1ppd x 44yrs, 40pyh - e-Cigarette/Vaping Use: Never Used Substance Use Type: Marijuana service: No Current occupational status: disabled Sexual orientation: Don't Know Review of Systems Const Denies chills, Denies fatigue, Denies fever(s), Denies frequent falls, Denies weakness, Denies weight gain and Denies weight loss ENT Denies dizziness Card Denies chest pain, Denies leg edema, Denies lightheadedness, Denies palpitations, Denies dyspnea, Denies dyspnea on exertion, Denies orthopnea and Denies other (loss of consciousness) Resp Denies cough, Denies dyspnea and Denies dyspnea on exertion GI Denies hematochezia and Denies change in stool character Musc Denies abnormal gait, Denies muscle weakness, Denies numbness, Denies radiating pain into limb and Denies tingling Neuro Denies abnormal gait, Denies dizziness, Denies frequent falls, Denies numbness, Denies tingling and Denies weakness Endo Denies fatigue and Denies palpitations Physical Exam Vital Signs: Last Vital Signs Pulse 70 11/13/23 13:27 BP 120/78 11/13/23 13:27 BMI result Body Mass Index 29.2 GENERAL APPEARANCE: in no acute distress. NECK/THYROID: no carotid bruit, no jugular venous distention. SKIN: no suspicious lesions, warm and dry. HEART: no murmurs, regular rate and rhythm, S1, S2 normal. LUNGS: Clear to auscultation. ABDOMEN: normal, bowel sounds present, soft, nontender, nondistended. EXTREMITIES: no clubbing, cyanosis, or edema. PERIPHERAL PULSES: equal. Assessment & Plan Assessment & Plan (1) Hypertension: Code(s): I10 - Essential (primary) hypertension (2) Stable angina: Code(s): I20.89 - Other forms of angina pectoris Plan 58-year-old gentleman with known history of previous inferior ST-elevation [place] and RCA PCI. He is complaining of non anginal chest pain. He had a stress test in June 2022 which was normal. He also had GI bleed in October 2022 and since then has been taking aspirin only. He was on dual antiplatelet therapy before that. Clinically stable. Same medications for now. He will see us back in 4 months. Thank you for allowing me to participate in the care of your patient. Please feel free to contact me if you have any questions. Coding Level of Care Code Est Pt Level 3 (64728) Diagnoses Hypertension I10 Stable angina I20.89
== END 2023-11-13 14:09 | disposition home or self-care (01) ==
PROVIDERS: PCP Registered Nurse; Visit Provider Internal Medicine Cardiovascular Disease
DX: I10 Essential (primary) hypertension (principal); I20.89 Other forms of angina pectoris
CPT/HCPCS: 99213

== ENCOUNTER → 2023-11-13 13:17 | Outpatient (BNVA) | payer MEDICAID, SELFPAY | PROVIDERS: PCP Registered Nurse; Visit Provider Internal Medicine Cardiovascular Disease | DX: I10 Essential (primary) hypertension (principal); I20.89 Other forms of angina pectoris | CPT/HCPCS: 99212 ==

== ENCOUNTER 2023-12-06 11:31 | Outpatient (REF) | payer MEDICAID, SELFPAY ==
[2023-12-07 04:29] LABS: HBc Num1 6.42 S/CO (0.00-0.79); Hepatitis B Surface Antigen Negative (Negative); ~HepC Num1 13.92 S/CO (0.00-0.79); ~Hepatitis B Surface Antibody REACTIVE (Nonreactive); ~Hepatitis C Antibody Reactive (Nonreactive)
[2023-12-07 05:12] LABS: HBc Num2 5.81 S/CO
[2023-12-07 05:13] LABS: Hepatitis B Core Antibody Reactive (Nonreactive)
[2023-12-07 11:11] LABS: Alanine Aminotransferase 27 U/L (0-40); Albumin Level 4.4 g/dL (3.5-5.0); Alkaline Phosphatase 109 U/L (39-117); Aspartate Amino Transferase 25 U/L (5-37); Bilirubin Direct 0.2 mg/dL (0.0-0.5); Bilirubin Total 0.5 mg/dL (0.0-1.0); Total Protein 7.9 g/dL (6.5-8.0)
== END 2023-12-06 11:32 | disposition home or self-care (01) ==
LOC: HO.HHCL 11:31
PROVIDERS: Visit Provider Family Medicine
DX: B18.2 Chronic viral hepatitis C (principal)
CPT/HCPCS: 36415; 80076; 86704; 86706; 86709; 86803; 87340

== ENCOUNTER 2023-12-16 13:13 | Outpatient (REF) | payer MEDICAID, SELFPAY ==
[2023-12-18 18:59] LABS: HCV Log PCR <1.18 NOT DETECTED Log IU/mL (NOT DETECTED); HepC Viral Load <15 NOT DETECTED IU/mL (NOT DETECTED)
== END 2023-12-16 13:14 | disposition home or self-care (01) ==
LOC: HO.HHCL 13:13
PROVIDERS: Visit Provider Family Medicine
DX: B18.2 Chronic viral hepatitis C (principal)
CPT/HCPCS: 36415; 87522

== ENCOUNTER 2024-05-14 22:45 | Emergency (ER) | payer MEDICAID, SELFPAY ==
--- NOTE | 2024-05-14 | ECG_ITS ---
Test Reason : TACHYCARDIA Blood Pressure : / mmHG Vent. Rate : 101 BPM Atrial Rate : 101 BPM P-R Int : 138 ms QRS Dur : 086 ms QT Int : 392 ms P-R-T Axes : 045 035 008 degrees QTc Int : 508 ms Sinus tachycardia Possible Lateral infarct (cited on or before 12-JUN-2021) Inferior infarct (cited on or before 21-APR-2020) Abnormal ECG When compared with ECG of 16-OCT-2022 18:07, Nonspecific T wave abnormality now evident in Anterior leads Referred By: Generic ED Physician Electronically Signed By:LUIS ANTONIO VAUGHN MD
[2024-05-14 23:01] VITALS: BP 175/88; PULSE 107; RESP 24; TEMP 36.6; O2SAT 97; BMI 24.3
[2024-05-15] VITALS: BP 135/51; PULSE 74; RESP 16; TEMP 36.8; O2SAT 94
--- NOTE | 2024-05-15 01:49 | ED_ITS ---
HPI - Psych General Chief Complaint: Psychiatric Symptoms Stated Complaint: SI Time Seen by Provider: 05/15/24 01:40 Source: patient and family Mode of arrival: EMS Limitations: no limitations History of Present Illness ED Provider: lynn DICKEY Narrative: Patient's history of bipolar disorder COPD anxiety brought by EMS as he was section [address] by [address] for threats of harming himself with night does have history of alcohol abuse last drink was 3 days ago on arrival patient denied any SI or HI feeling mother is at his bedside patient never had any prior hospitalization for depression or SI feels safe at home does not know why he is here Related Data Home Medications ?Medication ?Instructions ?Recorded ?Confirmed aspirin 81 mg tablet 81 mg PO DAILY 06/11/21 05/15/24 benztropine 1 mg tablet 1 mg PO BEDTIME 06/11/21 05/15/24 clonazepam 0.5 mg tablet 0.5 mg PO BID 06/11/21 05/15/24 risperidone 0.5 mg tablet 0.5 mg PO DAILY 06/11/21 05/15/24 risperidone 3 mg tablet 3 mg PO BEDTIME 06/11/21 05/15/24 trazodone 100 mg tablet 100 mg PO BEDTIME 06/11/21 05/15/24 albuterol sulfate 90 mcg/actuation 2 puff inhalation Q4H PRN Wheezing 10/16/22 05/15/24 aerosol inhaler (ProAir HFA) ferrous sulfate 325 mg (65 mg 325 mg PO DAILY 12/06/22 05/15/24 iron) tablet,delayed release folic acid 1 mg tablet 1 mg PO DAILY 05/16/23 05/15/24 mirtazapine 30 mg tablet 30 mg PO BEDTIME depressive 05/16/23 05/15/24 disorder thiamine HCl (vitamin B1) 100 mg 100 mg PO DAILY 05/16/23 05/15/24 tablet metoprolol succinate 25 mg 25 mg PO DAILY 11/13/23 05/15/24 tablet,extended release 24 hr Previous Rx's ?Medication ?Instructions ?Recorded omeprazole 20 mg capsule,delayed 20 mg PO DAILY@0630 #30 caps 10/31/22 release atorvastatin 40 mg tablet 40 mg PO BEDTIME #90 tabs 12/17/23 amlodipine 2.5 mg tablet 2.5 mg PO DAILY #90 tabs 01/16/24 ezetimibe 10 mg tablet 10 mg PO DAILY #90 tabs 04/29/24 Allergies Allergy/AdvReac Type Severity Reaction Status Date / Time acetaminophen Allergy Unknown PANADOL = Verified 05/15/24 14:20 ACETAMINOPHEN SHELLFISH Allergy Mild PATIENT Uncoded 05/15/24 14:20 REPORTS BURNING SENSATION THROUGHOUT OPIATES Allergy Unknown BECAME Uncoded 05/15/24 14:20 ADDICTED PANADOL Allergy Unknown UNKNOWN Uncoded 05/15/24 14:20 Review of Systems Review of Systems: Yes Unobtainable due to mental condition [facility] Past Medical History Medical History Schizoaffective disorder History of hepatitis C CAD (coronary artery disease) (~2019) Chest pain Palpitations Hypertension Hyperlipidemia History of ST elevation myocardial infarction (STEMI) (~2019) COPD (chronic obstructive pulmonary disease) Cough Nicotine dependence, cigarettes, uncomplicated Tubular adenoma BPH (benign prostatic hyperplasia) Surgical History History of heart artery stent (~2019) History of colonoscopy (~2021) History of esophagogastroduodenoscopy (EGD) (~2021) History of right inguinal hernia repair (~2003) History of left inguinal hernia repair (~2007) Family History Family History Father Edema Mother Developmental delay Social History Social History Household Members: Family Housing: Apartment Do you presently have visiting nurse or other home services: Yes Unable to assess alcohol history related to: Unable to respond Alcohol intake: never Patient Tobacco Use Status: Current everyday Tobacco user Tobacco use type: Cigarette Cigarette Packs Per Day: 20 Cigarettes Per Day: 1 Years Smoked: onset 12yo, 1ppd x 44yrs, 40pyh - Smoked in Last 30 Days: Yes e-Cigarette/Vaping Use: Never Used Use of substances other than those prescribed or required for medical reasons: Unable to respond Substance Use Type: Marijuana Advance Directives: No Advance Directives Information Provided: No service: No Current occupational status: disabled Sexual orientation: Don't Know Physical Exam Vital Signs: Vital Signs: Last Vital Signs Temp 98.4 F 05/15/24 04:16 Pulse 88 05/15/24 04:16 Resp 16 05/15/24 04:16 BP 135/78 05/15/24 04:16 Pulse Ox 98 05/15/24 04:16 O2 Del Method Room Air 05/15/24 04:16 BMI result Body Mass Index 24.3 Appearance: Alert. Oriented X3. No acute distress. Anxious Eyes: PERRLA, No Nystagmus ENT: Pharynx normal. Oral Mucosa moist Neck: Normal inspection. Neck supple. CVS: Normal heart rate and rhythm. Pulses normal. Respiratory: No respiratory distress. Equal air entry bilateral, no wheezing/rales/rhonchi Abdomen: Soft and nontender. Bowel sounds are present, no mass palpable, no CVA tenderness Skin: Skin warm and dry. Normal skin color. Normal skin turgor. Extremities: No lower extremity edema. No calf tenderness psych: Anxious denied any SI or HI no hallucination delusion Neuro: Oriented X 3. No motor deficit. No sensory deficit.No cerebellar signs , cranial nerves II-XII intact Medical Decision Making Medical Decision Making MDM Narrative: Patient with bipolar disorder schizoaffective disorder denied any SI on arrival mother is at bedside confirms that patient is not SI and feels safe to go home ,no hallucination or delusions noticed patient and family refused to stay in the hospital to be evaluated by care team will discharge patient home with family patient does have therapist and psychiatrist to follow Discharge Plan Discharge Clinical Impression: Bipolar disorder Patient Disposition: Home, Self-Care Instructions: Bipolar Disorder (ED) Additional Instructions: Take your medications as prescribed by psychiatry Follow with your therapist Prescriptions: No Action atorvastatin 40 mg tablet 40 mg PO BEDTIME Qty: 90 3RF amlodipine 2.5 mg tablet 2.5 mg PO DAILY Qty: 90 3RF ezetimibe 10 mg tablet 10 mg PO DAILY Qty: 90 3RF clonazepam 0.5 mg Tablet 0.5 mg PO BID risperidone 3 mg Tablet 3 mg PO BEDTIME trazodone 100 mg Tablet 100 mg PO BEDTIME benztropine 1 mg Tablet 1 mg PO BEDTIME aspirin 81 mg Tablet 81 mg PO DAILY risperidone 0.5 mg Tablet 0.5 mg PO DAILY metoprolol succinate 25 mg tablet extended release 24 hr 25 mg PO DAILY omeprazole 20 mg Capsule,Delayed Release(Dr/Ec) 20 mg PO DAILY@0630 Qty: 30 0RF albuterol sulfate [ProAir HFA] 90 mcg/actuation HFA aerosol inhaler 2 puff inhalation Q4H PRN (Reason: Wheezing) ferrous sulfate 325 mg (65 mg iron) tablet,delayed release (DR/EC) 325 mg PO DAILY folic acid 1 mg tablet 1 mg PO DAILY thiamine HCl (vitamin B1) 100 mg tablet 100 mg PO DAILY mirtazapine 30 mg tablet 30 mg PO BEDTIME Interventions: [place]-Suicide Risk Severity Scale Last Done: 05/15/24 02:48 ED Discharge Assessment Last Done: 05/15/24 04:16 Discharge Date/Time: 05/15/24 04:17 Print Language: Indonesian
[2024-05-15 02:00] VITALS: BP 158/77; PULSE 80; RESP 16; TEMP 36.9; O2SAT 96
[2024-05-15 04:16] VITALS: BP 135/78; PULSE 88; RESP 16; TEMP 36.9; O2SAT 98
== END 2024-05-15 04:17 | disposition home or self-care (01) ==
PROVIDERS: Emergency Provider Internal Medicine
DX: F31.9 Bipolar disorder, unspecified (principal); R45.851 Suicidal ideations; J44.9 Chronic obstructive pulmonary disease, unspecified; F25.0 Schizoaffective disorder, bipolar type; F12.90 Cannabis use, unspecified, uncomplicated; F17.210 Nicotine dependence, cigarettes, uncomplicated; Z79.82 Long term (current) use of aspirin; Z79.899 Other long term (current) drug therapy
CPT/HCPCS: 93005; 99283; 99285

== ENCOUNTER → 2024-05-14 22:58 | Outpatient (BNV) | payer MEDICAID, SELFPAY | PROVIDERS: Emergency Provider Internal Medicine; Visit Provider Internal Medicine Cardiovascular Disease | DX: R00.0 Tachycardia, unspecified (principal); R94.31 Abnormal electrocardiogram [ECG] [EKG] | CPT/HCPCS: 93010 ==

== ENCOUNTER 2024-05-15 13:48 | Inpatient (IN) | payer OTHER, SELFPAY ==
--- NOTE | 2024-05-15 | ECG_ITS ---
Test Reason : CHEST PAIN Blood Pressure : / mmHG Vent. Rate : 109 BPM Atrial Rate : 109 BPM P-R Int : 138 ms QRS Dur : 084 ms QT Int : 358 ms P-R-T Axes : 058 053 046 degrees QTc Int : 482 ms Sinus tachycardia Minimal voltage criteria for LVH, may be normal variant ( Sokolow-Fisher ) Possible Inferior infarct (cited on or before 21-APR-2020) Abnormal ECG When compared with ECG of 14-MAY-2024 22:58, No significant change was found Referred By: Lesa Giraldo Electronically Signed By:LUIS ANTONIO VAUGHN MD
[2024-05-15 14:15] VITALS: BP 138/82; PULSE 125; RESP 20; TEMP 37.7; O2SAT 97; BMI 29.3
--- NOTE | 2024-05-15 14:18 | ED.PSYCH ---
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 noting he was in a terrible state he is anxious and seems to be responding to internal stimuli then states he speak no other languages but then converses with historic interpreter complaint: anxiety Onset (ago): unknown Duration: constant History of same: Yes Relieving factors: none Exacerbating factors: other Associated psychiatric symptoms: none Associated symptoms: denies other symptoms Treatments prior to arrival: none Related Data Home Medications ?Medication ?Instructions ?Recorded ?Confirmed aspirin 81 mg tablet 81 mg PO DAILY 06/11/21 11/13/23 benztropine 1 mg tablet 1 mg PO BEDTIME 06/11/21 11/13/23 clonazepam 0.5 mg tablet 0.5 mg PO BID 06/11/21 11/13/23 risperidone 0.5 mg tablet 0.5 mg PO DAILY 06/11/21 11/13/23 risperidone 3 mg tablet 3 mg PO BEDTIME 06/11/21 11/13/23 trazodone 100 mg tablet 100 mg PO BEDTIME 06/11/21 11/13/23 albuterol sulfate 90 mcg/actuation 2 puff inhalation Q4H PRN Wheezing 10/16/22 11/13/23 aerosol inhaler (ProAir HFA) ferrous sulfate 325 mg (65 mg 325 mg PO DAILY 12/06/22 11/13/23 iron) tablet,delayed release folic acid 1 mg tablet 1 mg PO DAILY 05/16/23 11/13/23 mirtazapine 30 mg tablet 30 mg PO BEDTIME depressive 05/16/23 11/13/23 disorder thiamine HCl (vitamin B1) 100 mg 100 mg PO DAILY 05/16/23 11/13/23 tablet metoprolol succinate 25 mg 25 mg PO DAILY 11/13/23 11/13/23 tablet,extended release 24 hr Previous Rx's ?Medication ?Instructions ?Recorded omeprazole 20 mg capsule,delayed 20 mg PO DAILY@0630 #30 caps 10/31/22 release atorvastatin 40 mg tablet 40 mg PO BEDTIME #90 tabs 12/17/23 amlodipine 2.5 mg tablet 2.5 mg PO DAILY #90 tabs 01/16/24 ezetimibe 10 mg tablet 10 mg PO DAILY #90 tabs 04/29/24 Allergies Allergy/AdvReac Type Severity Reaction Status Date / Time acetaminophen Allergy Unknown PANADOL = Verified 05/15/24 14:20 ACETAMINOPHEN SHELLFISH Allergy Mild PATIENT Uncoded 05/15/24 14:20 REPORTS BURNING SENSATION THROUGHOUT OPIATES Allergy Unknown BECAME Uncoded 05/15/24 14:20 ADDICTED PANADOL Allergy Unknown UNKNOWN Uncoded 05/15/24 14:20 Review of Systems Review of Systems: ROS unable to be obtained due to poor historian PMFSH Past Medical History Attestation statement: The following information was validated with the patient. Source: old records reviewed Medical History Schizoaffective disorder History of hepatitis C CAD (coronary artery disease) (~2019) Chest pain Palpitations Hypertension Hyperlipidemia History of ST elevation myocardial infarction (STEMI) (~2019) COPD (chronic obstructive pulmonary disease) Cough Nicotine dependence, cigarettes, uncomplicated Tubular adenoma BPH (benign prostatic hyperplasia) Surgical History History of heart artery stent (~2019) History of colonoscopy (~2021) History of esophagogastroduodenoscopy (EGD) (~2021) History of right inguinal hernia repair (~2003) History of left inguinal hernia repair (~2007) Family History Family History Father Edema Mother Developmental delay Social History Social History Household Members: Family Housing: Apartment Do you presently have visiting nurse or other home services: Yes Unable to assess alcohol history related to: Unable to respond Alcohol intake: never Patient Tobacco Use Status: Current everyday Tobacco user Tobacco use type: Cigarette Cigarette Packs Per Day: 20 Cigarettes Per Day: 1 Years Smoked: onset 12yo, 1ppd x 44yrs, 40pyh - Smoked in Last 30 Days: Yes e-Cigarette/Vaping Use: Never Used Use of substances other than those prescribed or required for medical reasons: Unable to respond Substance Use Type: Marijuana Advance Directives: No Advance Directives Information Provided: No service: No Current occupational status: disabled Sexual orientation: Don't Know Physical Exam Vital Signs: Vital Signs: Last Vital Signs Temp 99.9 F 05/15/24 14:21 Pulse 125 H 05/15/24 14:21 Resp 20 05/15/24 14:21 BP 138/82 05/15/24 14:21 Pulse Ox 97 05/15/24 14:21 O2 Del Method Room Air 05/15/24 14:21 BMI result Body Mass Index 29.3 Appearance: Alert. Oriented X3. No acute distress. anxious states he doesn't speak british virgin islander or mexican but then fluent with historic interpreter Eyes: Pupils equal, round and reactive to light. ENT: Pharynx normal. Neck: Normal inspection. Neck supple. CVS: Normal heart rate and rhythm. Pulses normal. Respiratory: No respiratory distress. Breath sounds normal. Abdomen: Soft and nontender. Skin: Skin warm and dry. Normal skin color. Normal skin turgor. Extremities: No lower extremity edema. No calf ttp Neuro: Oriented X 3. No motor deficit. No sensory defici CN2-12 intact. Medical Decision Making Medical Decision Making MDM Narrative: 59 yo male with PMH of CAD, schizoaffective disorder, COPD, HTN, HLD, BPH, GIB, anemia here with c/o crying not acting himself states he doesn't speak british virgin islander or mexican but is conversing with the historic interpreter then asking to talk to his mom. At this time labs and CARE team consult. Differential Diagnosis Differential Diagnoses: The differential diagnosis associated with the presentation includes schizoaffective Admission/Observation Consideration of admission/observation: Escalation of care including admission/observation considered physician observation pending CARE team started at 250pm Consult Healthcare Provider Management of the patient was discussed with: Behavioral Health Provider Lab Data [facility] Lab Attestation statement: I reviewed the patient's lab results. 05/15/24 14:44 05/15/24 14:44 Labs: Lab Results 05/15/24 Range/Units 14:44 WBC 9.3 (4.8-10.8) X10*3/uL RBC 5.32 (4.60-5.80) X10*6/uL Hgb 15.4 (14.0-18.0) g/dl Hct 45.4 (42.0-52.0) % MCV 85.3 (80.0-98.0) fL MCH 28.9 (27.0-33.0) pg MCHC 33.9 (31.0-36.0) g/dl RDW 15.3 (11.0-16.0) % Plt Count 239 (160-400) X10*3/uL MPV 10.4 (9.4-12.4) fL Immature Gran % (Auto) 0.3 (0.0-0.4) % Neut % (Auto) 74.1 H (45-73) % Lymph % (Auto) 14.6 L (20-40) % [place] % (Auto) 10.3 (2-11) % Eos % (Auto) 0.4 (0-4) % Baso % (Auto) 0.3 (0-2) % Lymph # (Auto) 1.4 (1.2-4.9) X10*3/uL [place] # (Auto) 1.0 (0.1-1.2) X10*3/uL Eos # (Auto) 0.0 (0.0-0.4) X10*3/uL Baso # (Auto) 0.0 (0.0-0.2) X10*3/uL Abs Immat Gran (auto) 0.03 (0.00-0.03) X10*3/uL Absolute Neuts (auto) 6.9 (2.0-8.3) x10*3/uL Absolute Nucleated RBC 0.000 (0.0-0.012) X10*3/uL Nucleated RBC % (auto) 0.0 (0.0-0.2) /100WBC Sodium 142 (135-145) mmol/L Potassium 3.4 (3.3-5.1) mmol/L Chloride 108 (96-108) mmol/L Carbon Dioxide 25 (22-29) mmol/L Anion Gap 12 (12-20) BUN 17 H (9-16) mg/dL Creatinine 0.76 (0.5-1.4) mg/dL Estim Creat Clear Calc 93.7 Estimated GFR > 60 Random Glucose 132 H (60-115) mg/dL Calcium 10.3 H D (8.4-10.2) mg/dL Total Bilirubin 0.4 (0.0-1.0) mg/dL AST 56 H (5-37) U/L ALT 42 H (0-40) U/L Alkaline Phosphatase 101 (39-117) U/L Total Protein 9.1 H (6.5-8.0) g/dL Albumin 5.0 (3.5-5.0) g/dL Ethyl Alcohol < 10 mg/dL Independent Interpretation I performed an independent interpretation of an: EKG Interpretation: Rate: 109 Rhythm: sinus tach [place]: left, LVH Normal P waves. Normal RUBI. Normal QRS complex. ST T wave : no [place] qTC: 482 prior studies: no acute ischemia The study has been interpreted contemporaneously by me. . Independent Historian Clinical information obtained from an independent historian. History obtained from or confirmed by: EMS External Record Review External record reviewed: Inpatient record Discharge Plan Discharge Clinical Impression: Schizoaffective disorder Qualifiers: Schizoaffective disorder type: unspecified Qualified Code(s): F25.9 - Schizoaffective disorder, unspecified Patient Disposition: Still a Patient Prescriptions: No Action atorvastatin 40 mg tablet 40 mg PO BEDTIME Qty: 90 3RF amlodipine 2.5 mg tablet 2.5 mg PO DAILY Qty: 90 3RF ezetimibe 10 mg tablet 10 mg PO DAILY Qty: 90 3RF clonazepam 0.5 mg Tablet 0.5 mg PO BID risperidone 3 mg Tablet 3 mg PO BEDTIME trazodone 100 mg Tablet 100 mg PO BEDTIME benztropine 1 mg Tablet 1 mg PO BEDTIME aspirin 81 mg Tablet 81 mg PO DAILY risperidone 0.5 mg Tablet 0.5 mg PO DAILY metoprolol succinate 25 mg tablet extended release 24 hr 25 mg PO DAILY omeprazole 20 mg Capsule,Delayed Release(Dr/Ec) 20 mg PO DAILY@0630 Qty: 30 0RF albuterol sulfate [ProAir HFA] 90 mcg/actuation HFA aerosol inhaler 2 puff inhalation Q4H PRN (Reason: Wheezing) ferrous sulfate 325 mg (65 mg iron) tablet,delayed release (DR/EC) 325 mg PO DAILY folic acid 1 mg tablet 1 mg PO DAILY thiamine HCl (vitamin B1) 100 mg tablet 100 mg PO DAILY mirtazapine 30 mg tablet 30 mg PO BEDTIME Interventions: [place]-Suicide Risk Severity Scale Last Done: 05/15/24 14:20 Print Language: Martiniquais
[2024-05-15 14:21] VITALS: BP 138/82; PULSE 125; RESP 20; TEMP 37.7; O2SAT 97
[2024-05-15 14:49] LABS: MANUAL DIFF FLAG NO
[2024-05-15 14:53] LABS: Basophils Percent Auto 0.3 % (0-2); Eosinophils Percent Auto 0.4 % (0-4); Hematocrit 45.4 % (42.0-52.0); Hemoglobin 15.4 g/dl (14.0-18.0); Imm Gran Abs Auto 0.03 X10*3/uL (0.00-0.03); Imm Gran Pct Auto 0.3 % (0.0-0.4); Lymphocytes Absolute Auto 1.4 X10*3/uL (1.2-4.9); Lymphocytes Percent Auto 14.6 % (20-40); Mean Corpuscular HGB Conc 33.9 g/dl (31.0-36.0); Mean Corpuscular Hemoglobin 28.9 pg (27.0-33.0); Mean Corpuscular Volume 85.3 fL (80.0-98.0); Mean Platelet Volume 10.4 fL (9.4-12.4); Monocytes Percent Auto 10.3 % (2-11); Neutrophils Absolute Auto 6.9 x10*3/uL (2.0-8.3); Neutrophils Percent Auto 74.1 % (45-73); Platelet Count 239 X10*3/uL (160-400); Red Blood Count 5.32 X10*6/uL (4.60-5.80); Red Cell Distribution Width 15.3 % (11.0-16.0); White Blood Count 9.3 X10*3/uL (4.8-10.8)
[2024-05-15 15:07] LABS: Alanine Aminotransferase 42 U/L (0-40); Alkaline Phosphatase 101 U/L (39-117); Anion Gap 12 (12-20); Aspartate Amino Transferase 56 U/L (5-37); Bilirubin Total 0.4 mg/dL (0.0-1.0); Blood Urea Nitrogen 17 mg/dL (9-16); Calcium 10.3 mg/dL (8.4-10.2); Carbon Dioxide 25 mmol/L (22-29); Chloride 108 mmol/L (96-108); Creatinine Clr Calc Pharmacy 93.7; Estimated Glomerular Filt Rate > 60; Ethanol < 10 mg/dL; Glucose Random 132 mg/dL (60-115); Potassium 3.4 mmol/L (3.3-5.1); Sodium 142 mmol/L (135-145); Total Protein 9.1 g/dL (6.5-8.0)
[2024-05-15 15:35] LABS: Appearance Urine Clear; Color Urine Yellow; Glucose Urine UA Negative (Negative); Leukocyte Esterase Urine Trace (Negative); Nitrite Urine Negative (Negative); PH 5.5 (5.0-9.0); Specific Gravity - Urine >= 1.030 (1.005-1.025); UMIC TRIGGER UACC YES; Urine Blood Negative (Negative); Urine Ketones 15 mg/dL (Negative); Urine Protein 30 (1+) mg/dL (Neg-Trace)
[2024-05-15 15:45] LABS: Amphetamine Screen Urine Not Detected (Not Detect); Barbiturates, Urine Not Detected (Not Detect); Benzodiazepines Screen Urine Not Detected (Not Detect); Buprenorphine Scr Not Detected (Not Detect); Cannabinoid Screen Urine POSITIVE (Not Detect); Cocaine Screen Urine Not Detected (Not Detect); Fentanyl, urine Not Detected (Not Detect); Methadone Screen, Urine Not Detected (Not Detect); Opiate Screen Urine Not Detected (Not Detect); Oxycodone Screen Urine Not Detected (Not Detect); Phencyclidine Screen Urine Not Detected (Not Detect)
[2024-05-15 16:15] LABS: Bacteria Urine None Seen (None Seen); Hyaline Casts Urine 0-2 /LPF (0-2); Squamous Epithelial Cell Urine 0-2 /HPF (0-2); UACC Culture Trigger YES
[2024-05-15] MEDS: diphenhydrAMINE HCL 25 MG CAPSULE 50 MG PO (16:53)
[2024-05-15] MEDS: HaloperidoL 5 MG TABLET PO (16:53)
[2024-05-15] MEDS: LORazepam 1 MG TABLET 2 MG PO (16:53)
--- NOTE | 2024-05-15 19:02 | PC.NURSE ---
patient appears to remain at rest client was medicated for increased psychiatric sx around 1700. patient appears to remain asleep presently respirations are even and unlabored patient appears in no distress.
[2024-05-15] MEDS: Atorvastatin Calcium 40 MG TABLET PO (22:06)
[2024-05-15] MEDS: risperiDONE 3 MG TABLET PO (22:06)
[2024-05-15] MEDS: Mirtazapine 30 MG TABLET PO (22:06)
[2024-05-15] MEDS: traZODone HCL 100 MG TABLET PO (22:06)
[2024-05-15] MEDS: Benztropine Mesylate 1 MG TABLET PO (22:06)
[2024-05-15] MEDS: clonazePAM 0.5 MG TABLET PO (22:06)
[2024-05-16 00:15] VITALS: BP 108/69; PULSE 80; RESP 16; TEMP 36.9; O2SAT 92
[2024-05-16 01:03] VITALS: BMI 25.5
--- NOTE | 2024-05-16 03:18 | PC.ADMIT ---
Uche is a 59 yo born male with PMH of CAD, schizoaffective disorder, unspecified intellectual disability, COPD, HTN, HLD, BPH, GIB, and anemia. 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 VNA and family reported he was off baseline increasingly confused and agitated, not eating or sleeping for several days possible R/T medication non-adherence, last admission to [facility] was 09/2022. . Uche presented to the unit via W/C, escorted by Staff /Security at 2345. He is alert to self, pleasant and cooperative, low volume nonsensical speech, able to answer closed ended questions, (Tito used to translate). Body audit/safety assessment completed by two staff member, skin intact, no contraband. He is ambulatory with steady gait, meds given in ER prior to unit arrival. He denied SI/AVH. Declined food/fluid, escorted to his room, placed on 15 min unit safety observation. Plan of Care goal is re-establishment of safety, medication management, mood stabilization and appropriate discharge planning.
[2024-05-16] MEDS: Omeprazole 20 MG CAPSULE.DR PO (06:30)
[2024-05-16 07:55] VITALS: BP 128/70; PULSE 71; RESP 16; TEMP 37.2; O2SAT 98
[2024-05-16 08:06] LABS: Alanine Aminotransferase 36 U/L (0-40); Albumin Level 4.1 g/dL (3.5-5.0); Alkaline Phosphatase 85 U/L (39-117); Anion Gap 14 (12-20); Aspartate Amino Transferase 41 U/L (5-37); Bilirubin Total 0.6 mg/dL (0.0-1.0); Blood Urea Nitrogen 22 mg/dL (9-16); Calcium 9.9 mg/dL (8.4-10.2); Carbon Dioxide 24 mmol/L (22-29); Chloride 108 mmol/L (96-108); Cholesterol 99 mg/dL (<200); Creatinine Clr Calc Pharmacy 74.9; Estimated Glomerular Filt Rate > 60; Glucose Fasting 176 mg/dL (60-99); HDL Cholesterol 30 mg/dL (>40); LDL Cholesterol Calculated 60 mg/dL (<100); Potassium 3.2 mmol/L (3.3-5.1); Sodium 143 mmol/L (135-145); Total Protein 7.4 g/dL (6.5-8.0); Triglycerides 48 mg/dL (<150)
[2024-05-16 09:38] VITALS: BP 128/70
[2024-05-16] MEDS: Ferrous Sulfate 324 MG TABLET.DR PO (09:38)
[2024-05-16] MEDS: clonazePAM 0.5 MG TABLET PO ×2 (09:38→20:49)
[2024-05-16] MEDS: Ezetimibe 10 MG TABLET PO (09:38)
[2024-05-16] MEDS: amLODIPine Besylate 2.5 MG TABLET PO (09:38)
[2024-05-16 09:39] VITALS: PULSE 71
[2024-05-16] MEDS: Metoprolol Succinate ER 25 MG TAB.ER.24H PO (09:39)
[2024-05-16] MEDS: risperiDONE 0.5 MG TABLET PO (09:39)
[2024-05-16] MEDS: Thiamine HCL 100 MG TABLET PO (09:39)
[2024-05-16] MEDS: Folic Acid 1 MG TABLET PO (09:39)
--- NOTE | 2024-05-16 10:13 | P.HPPS_ITS ---
[facility] Date of Service: 05/16/24 Chief Complaint: psychosis Sources of Information: patient interviewed, chart reviewed and crisis/core team assessment reviewed HPI Subjective Notes: Section 12B Narrative: Pt is a 59 year old, single, , Upper Sorbian speaking male with history of schizoaffective disorder and unspecified intellectual disability (patient doesn't read or write.) Patient was brought to the hospital after his VNA contacted EMS. He was reportedly more confused, more agitated, and more tearful. He was reportedly not eating or sleeping well. His self care has been deteriorating. Patient's interview was limited even with the presence of the pediatric rn. Patient said he doesn't know why he is here. He was perseverating about going home casa . When he was told he would need to stay over the weekend he would repeatedly ask if he is going home [place]. He was calm throughout. As the architecture intern was helping with the interview and in spite of her introducing herself he asked when will there be an architecture intern? He knew he was in [place]. He didn't know the date or his address and said I can't read or write. He was fully alert and didn't have signs of delirium and fluctuating levels of arousal. Patient may have not been adherent to his PM medications. Patient has a guardian and a [facility] order. Past Psychiatric History: INpt: multiple in the past. OP: Dr. Jordan Lee Past med trials: risperidone Has [facility] per CARE team report. Attends a day program sporadically. Medical Evaluation Reviewed: Yes [facility] Medical History Schizoaffective disorder History of hepatitis C CAD (coronary artery disease) (~2019) Chest pain Palpitations Hypertension Hyperlipidemia History of ST elevation myocardial infarction (STEMI) (~2019) COPD (chronic obstructive pulmonary disease) Cough Nicotine dependence, cigarettes, uncomplicated Tubular adenoma BPH (benign prostatic hyperplasia) Surgical History History of heart artery stent (~2019) History of colonoscopy (~2021) History of esophagogastroduodenoscopy (EGD) (~2021) History of right inguinal hernia repair (~2003) History of left inguinal hernia repair (~2007) Social History: Lives with mother. Mother has dementia. Has VNA. Brother helps care for him and mother. Has a guardian. Substance History: Remote ETOH per CARE team report. Trauma History: Positive trauma history per CARE team report. Diagnostics Vital Signs (24Hr): Vital Signs - 24 hr 05/15/24 14:15 05/15/24 14:21 05/16/24 00:15 Temperature 99.9 F 99.9 F 98.4 F Pulse Rate 125 H 125 H 80 Respiratory Rate 20 20 16 Blood Pressure 138/82 138/82 108/69 Pulse Oximetry 97 97 92 Oxygen Delivery Method Room Air Room Air Room Air 05/16/24 07:55 05/16/24 09:38 05/16/24 09:39 Temperature 99.0 F Pulse Rate 71 71 Respiratory Rate 16 Blood Pressure 128/70 128/70 Pulse Oximetry 98 Oxygen Delivery Method Room Air BMI result Body Mass Index 25.5 Labs 05/15/24 14:44 05/16/24 07:24 Labs: Laboratory Results - last 48 hr 05/15/24 05/15/24 05/16/24 14:44 15:22 07:24 WBC 9.3 RBC 5.32 Hgb 15.4 Hct 45.4 MCV 85.3 MCH 28.9 MCHC 33.9 RDW 15.3 Plt Count 239 MPV 10.4 Immature Gran % (Auto) 0.3 Neut % (Auto) 74.1 H Lymph % (Auto) 14.6 L [place] % (Auto) 10.3 Eos % (Auto) 0.4 Baso % (Auto) 0.3 Lymph # (Auto) 1.4 [place] # (Auto) 1.0 Eos # (Auto) 0.0 Baso # (Auto) 0.0 Abs Immat Gran (auto) 0.03 Absolute Neuts (auto) 6.9 Absolute Nucleated RBC 0.000 Nucleated RBC % (auto) 0.0 Sodium 142 143 Potassium 3.4 3.2 L Chloride 108 108 Carbon Dioxide 25 24 Anion Gap 12 14 BUN 17 H 22 H Creatinine 0.76 0.84 Estim Creat Clear Calc 93.7 74.9 Estimated GFR > 60 > 60 Random Glucose 132 H Fasting Glucose 176 H Calcium 10.3 H D 9.9 Total Bilirubin 0.4 0.6 AST 56 H 41 H ALT 42 H 36 Alkaline Phosphatase 101 85 Total Protein 9.1 H 7.4 Albumin 5.0 4.1 Triglycerides 48 Cholesterol 99 LDL Cholesterol, Calc 60 HDL Cholesterol 30 L Urine Color Yellow Urine Appearance Clear Urine pH 5.5 Ur Specific [place] >= 1.030 H Urine Protein 30 (1+) H Urine Glucose (UA) Negative Urine Ketones 15 Urine Blood Negative Urine Nitrite Negative Ur Leukocyte Esterase Trace H Urine RBC 3-5 H Urine WBC 6-10 H Ur Squamous Epith Cells 0-2 Urine Bacteria None Seen Hyaline Casts 0-2 Urine Opiates Screen Not Detected Ur Buprenorphine Scrn Not Detected Ur Oxycodone Screen Not Detected Urine Methadone Screen Not Detected Urine Fentanyl Screen Not Detected Ur Barbiturates Screen Not Detected Ur Phencyclidine Scrn Not Detected Ur Amphetamines Screen Not Detected U Benzodiazepines Scrn Not Detected Urine Cocaine Screen Not Detected U Marijuana (THC) Screen POSITIVE H Ethyl Alcohol < 10 Meds/Allergies Meds Home Medications ?Medication ?Instructions ?Recorded ?Confirmed ?Type aspirin 81 mg tablet 81 mg PO DAILY 06/11/21 05/15/24 History benztropine 1 mg tablet 1 mg PO BEDTIME 06/11/21 05/15/24 History clonazepam 0.5 mg tablet 0.5 mg PO BID 06/11/21 05/15/24 History risperidone 0.5 mg tablet 0.5 mg PO DAILY 06/11/21 05/15/24 History risperidone 3 mg tablet 3 mg PO BEDTIME 06/11/21 05/15/24 History trazodone 100 mg tablet 100 mg PO BEDTIME 06/11/21 05/15/24 History albuterol sulfate 90 mcg/actuation 2 puff inhalation Q4H PRN Wheezing 10/16/22 05/15/24 History aerosol inhaler (ProAir HFA) ferrous sulfate 325 mg (65 mg 325 mg PO DAILY 12/06/22 05/15/24 History iron) tablet,delayed release folic acid 1 mg tablet 1 mg PO DAILY 05/16/23 05/15/24 History mirtazapine 30 mg tablet 30 mg PO BEDTIME depressive 05/16/23 05/15/24 History disorder thiamine HCl (vitamin B1) 100 mg 100 mg PO DAILY 05/16/23 05/15/24 History tablet metoprolol succinate 25 mg 25 mg PO DAILY 11/13/23 05/15/24 History tablet,extended release 24 hr Allergies Allergies Allergy/AdvReac Type Severity Reaction Status Date / Time acetaminophen Allergy Unknown PANADOL = Verified 05/15/24 14:20 ACETAMINOPHEN SHELLFISH Allergy Mild PATIENT Uncoded 05/15/24 14:20 REPORTS BURNING SENSATION THROUGHOUT OPIATES Allergy Unknown BECAME Uncoded 05/15/24 14:20 ADDICTED PANADOL Allergy Unknown UNKNOWN Uncoded 05/15/24 14:20 Mental Status Exam Mental Status Exam Narrative: Alert. Disoriented. Patient Appearance: Disheveled Level of Consciousness: Awake, Disoriented and Alert Patient Behavior: Cooperative, Confused and Good Eye Contact Mood Description: Calm Affect Description: Flat Patient Cognition Impaired: Yes Ability to Follow Directions: Fair Speech Pattern: Perseverating, Impoverished and Monotone Hallucinations: None Delusions: Not Present Thought Process: Disoriented and Confusion Thought Content: positive for Poverty of Content Depressive Symptoms: Increased Irritability and Crying Spells Judgement: Poor Assessment & Plan Assessment & Plan (1) Schizoaffective disorder: Status: Acute Qualifiers: Schizoaffective disorder type: unspecified Qualified Code(s): F25.9 - Schizoaffective disorder, unspecified Code(s): F25.9 - Schizoaffective disorder, unspecified (2) Intellectual delay: Status: Acute Code(s): F81.9 - Developmental disorder of scholastic skills, unspecified Plan 59 yr old male with schizoaffective disorder and unspecified cognitive delay referred by VNA for admission due to worsening confusion, crying spells, possible non-adherence to some of his medications. Plan: - Admit to inpatient psychiatry - Sect 12b (expires 05/20/24) - Collateral information from family and providers. - Milieu treatment and group therapy. - Medications: Restart home medications. - Social work evaluation. - Disposition planning. Patient educated on: therapeutic strategies Reason for continued inpatient stay Substantial Risk for: inability to function, rapid decompensation and med/psych decompensation Statement Statement: I have reviewed the history and physical and performed a pertinent examination on my patient. No changes have occurred unless specified. If the History and Physical was not performed prior to admission, the Hospitalist's service will be consulted for completing the admission physical. Time Spent With Patient Time: Total time managing care of this patient today ____ minutes.
[2024-05-16] MEDS: hydrOXYzine HCL 25 MG TABLET PO ×2 (12:45→20:49)
[2024-05-16] MEDS: Nicotine Polacrilex 2 MG GUM 4 MG BUCCAL ×2 (15:06→20:52)
[2024-05-16 20:00] VITALS: BP 114/62; PULSE 76; RESP 16; TEMP 37; O2SAT 96
[2024-05-16] MEDS: risperiDONE 3 MG TABLET PO (20:49)
[2024-05-16] MEDS: Mirtazapine 30 MG TABLET PO (20:49)
[2024-05-16] MEDS: Atorvastatin Calcium 40 MG TABLET PO (20:49)
[2024-05-16] MEDS: traZODone HCL 100 MG TABLET PO (20:49)
[2024-05-16] MEDS: Benztropine Mesylate 1 MG TABLET PO (20:49)
[2024-05-17] MEDS: Omeprazole 20 MG CAPSULE.DR PO (06:36)
[2024-05-17 07:56] VITALS: BP 107/52; PULSE 74; RESP 16; TEMP 36.9; O2SAT 96
[2024-05-17 08:00] VITALS: BP 107/52; PULSE 74; RESP 16; TEMP 36.9; O2SAT 96
[2024-05-17] MEDS: Folic Acid 1 MG TABLET PO (09:17)
[2024-05-17] MEDS: clonazePAM 0.5 MG TABLET PO ×2 (09:17→20:36)
[2024-05-17] MEDS: Ezetimibe 10 MG TABLET PO (09:18)
[2024-05-17] MEDS: risperiDONE 0.5 MG TABLET PO (09:18)
[2024-05-17] MEDS: Thiamine HCL 100 MG TABLET PO (09:18)
[2024-05-17] MEDS: Ferrous Sulfate 324 MG TABLET.DR PO (09:18)
[2024-05-17] MEDS: Aspirin 81 MG TAB.CHEW PO (09:19)
[2024-05-17 09:25] VITALS: BP 107/52
[2024-05-17 09:30] VITALS: BP 107/52; PULSE 74
[2024-05-17] MEDS: Nicotine Polacrilex 2 MG GUM 4 MG BUCCAL (09:34)
[2024-05-17] MEDS: Albuterol Sulfate 90 MCG 8 GM INHALER 1 PUFF INHALE (14:19)
--- NOTE | 2024-05-17 17:14 | HO.PSYCHPN ---
Subjective Subjective Date of Service: 05/17/24 Reason For Visit: psychosis Interim History: Seen with yarn conditioner. Continues pleasant and calm but confused. He perseverates on his mother and wants assurance she is alright. He asks about his brother. Doesn't know how to dial phone. Reports he likes wearing the headphones on the unit and wonders if he can get a pair when he goes home. Remains overall confused and needs reminders and reorientation. Needs reassurance and has significant short term memory deficits. He is calm and cooperative with care. Denies SI/HI/AVH. Review of Systems Review of Systems ROS unable to be obtained due to poor historian Mental Status Exam Mental Status Exam Narrative: Alert. Disoriented. Patient Appearance: Disheveled Level of Consciousness: Awake, Disoriented and Alert Patient Behavior: Cooperative, Confused and Good Eye Contact Mood Description: Calm Affect Description: Flat Patient Cognition Impaired: Yes Ability to Follow Directions: Fair Speech Pattern: Perseverating, Impoverished and Monotone Memory Description: Remote Impaired, Immediate Impaired, Mcc Impaired, Episodic Impaired and Recent Impaired Hallucinations: None Thought Process: Disoriented, Incoherent and Distracted Thought Content: positive for Disoriented, positive for Perseveration, positive for Poverty of Content, positive for Slowed Thinking and positive for Disorganized Judgement: Poor Diagnostics Vital Signs (24Hr): Vital Signs - 24 hr 05/16/24 20:00 05/17/24 07:56 05/17/24 08:00 Temperature 98.6 F 98.4 F 98.4 F Pulse Rate 76 74 74 Respiratory Rate 16 16 16 Blood Pressure 114/62 107/52 L 107/52 L Pulse Oximetry 96 96 96 Oxygen Delivery Method Room Air Room Air Room Air 05/17/24 09:25 05/17/24 09:30 Temperature Pulse Rate 74 Respiratory Rate Blood Pressure 107/52 L 107/52 L Pulse Oximetry Oxygen Delivery Method BMI result Body Mass Index 25.5 Labs 05/15/24 14:44 05/16/24 07:24 Labs: Laboratory Results - last 48 hr 05/16/24 07:24 Sodium 143 Potassium 3.2 L Chloride 108 Carbon Dioxide 24 Anion Gap 14 BUN 22 H Creatinine 0.84 Estim Creat Clear Calc 74.9 Estimated GFR > 60 Fasting Glucose 176 H Calcium 9.9 Total Bilirubin 0.6 AST 41 H ALT 36 Alkaline Phosphatase 85 Total Protein 7.4 Albumin 4.1 Triglycerides 48 Cholesterol 99 LDL Cholesterol, Calc 60 HDL Cholesterol 30 L Medications Medications Current Medications Al Hydroxide/Mg Hydroxide (Magnesium Hydrox/Alum Hydrox 30 Ml Oral.Susp) 30 ml PO Q6H PRN PRN Reason: Heartburn/Nausea Albuterol Sulfate (Albuterol Sulfate 90 Mcg 8 Gm Inhaler) 1 puff INHALE RQ6H PRN PRN Reason: Shortness of Breath/Wheezing Last Admin: 05/17/24 14:19 Dose: 1 puff Amlodipine Besylate (Amlodipine Besylate 2.5 Mg Tablet) 2.5 mg PO DAILY [facility]; Protocol Last Admin: 05/17/24 09:25 Dose: Not Given Aspirin (Aspirin 81 Mg Tab.Chew) 81 mg PO DAILY [facility] Last Admin: 05/17/24 09:19 Dose: 81 mg Atorvastatin Calcium (Atorvastatin Calcium 40 Mg Tablet) 40 mg PO BEDTIME KAREN Last Admin: 05/16/24 20:49 Dose: 40 mg Benztropine Mesylate (Benztropine Mesylate 1 Mg Tablet) 1 mg PO BEDTIME KAREN Last Admin: 05/16/24 20:49 Dose: 1 mg Clonazepam (Clonazepam 0.5 Mg Tablet) 0.5 mg PO BID [facility] Last Admin: 05/17/24 09:17 Dose: 0.5 mg Ezetimibe (Ezetimibe 10 Mg Tablet) 10 mg PO DAILY [facility] Last Admin: 05/17/24 09:18 Dose: 10 mg Ferrous Sulfate (Ferrous Sulfate 324 Mg Tablet.Dr) 324 mg PO DAILY [facility] Last Admin: 05/17/24 09:18 Dose: 324 mg Folic Acid (Folic Acid 1 Mg Tablet) 1 mg PO DAILY [facility] Last Admin: 05/17/24 09:17 Dose: 1 mg Hydroxyzine HCl (Hydroxyzine Hcl 25 Mg Tablet) 25 mg PO Q6H PRN PRN Reason: Anxiety Last Admin: 05/16/24 20:49 Dose: 25 mg Magnesium Hydroxide (Milk Of Magnesia 30 Ml Oral.Susp) 30 ml PO DAILY PRN PRN Reason: Constipation Metoprolol Succinate (Metoprolol Succinate Er 25 Mg Tab.Er.24h) 25 mg PO DAILY [facility]; Protocol Last Admin: 05/17/24 09:30 Dose: Not Given Mirtazapine (Mirtazapine 30 Mg Tablet) 30 mg PO BEDTIME KAREN Last Admin: 05/16/24 20:49 Dose: 30 mg Nicotine Polacrilex (Nicotine Polacrilex 2 Mg Gum) 4 mg BUCCAL Q2H PRN PRN Reason: Nicotine Cravings Last Admin: 05/17/24 09:34 Dose: 4 mg Omeprazole (Omeprazole 20 Mg Capsule.Dr) 20 mg PO DAILY@0630 [facility] Last Admin: 05/17/24 06:36 Dose: 20 mg Risperidone (Risperidone 0.5 Mg Tablet) 0.5 mg PO DAILY [facility] Last Admin: 05/17/24 09:18 Dose: 0.5 mg Risperidone (Risperidone 3 Mg Tablet) 3 mg PO BEDTIME [facility] Last Admin: 05/16/24 20:49 Dose: 3 mg Thiamine HCl (Thiamine Hcl 100 Mg Tablet) 100 mg PO DAILY [facility] Last Admin: 05/17/24 09:18 Dose: 100 mg Trazodone HCl (Trazodone Hcl 100 Mg Tablet) 100 mg PO BEDTIME [facility] Last Admin: 05/16/24 20:49 Dose: 100 mg Allergies Allergies Allergy/AdvReac Type Severity Reaction Status Date / Time acetaminophen Allergy Unknown PANADOL = Verified 05/15/24 14:20 ACETAMINOPHEN SHELLFISH Allergy Mild PATIENT Uncoded 05/15/24 14:20 REPORTS BURNING SENSATION THROUGHOUT OPIATES Allergy Unknown BECAME Uncoded 05/15/24 14:20 ADDICTED PANADOL Allergy Unknown UNKNOWN Uncoded 05/15/24 14:20 Assessment & Plan Assessment & Plan (1) Schizoaffective disorder: Qualifiers: Schizoaffective disorder type: unspecified Qualified Code(s): F25.9 - Schizoaffective disorder, unspecified Status: Acute Code(s): F25.9 - Schizoaffective disorder, unspecified (2) Intellectual delay: Status: Acute Code(s): F81.9 - Developmental disorder of scholastic skills, unspecified Plan 59 yr old male with schizoaffective disorder and unspecified cognitive delay referred by VNA for admission due to worsening confusion, crying spells, possible non-adherence to some of his medications. Plan: - Admit to inpatient psychiatry - Sect 12b (expires 05/20/24) - Collateral information from family and providers. - Milieu treatment and group therapy. - Medications: Restart home medications. - Social work evaluation. - Disposition planning. 05/17: continue current management and treatment plan. Reason for continued inpatient stay Substantial Risk for: inability to function, rapid decompensation and med/psych decompensation Time Spent With Patient Time: Total time managing care of this patient today ____ minutes.
[2024-05-17 20:00] VITALS: BP 166/92; PULSE 96; TEMP 37.1; O2SAT 97
[2024-05-17] MEDS: Mirtazapine 30 MG TABLET PO (20:35)
[2024-05-17] MEDS: Atorvastatin Calcium 40 MG TABLET PO (20:35)
[2024-05-17] MEDS: traZODone HCL 100 MG TABLET PO (20:37)
[2024-05-17] MEDS: Benztropine Mesylate 1 MG TABLET PO (20:37)
[2024-05-17] MEDS: risperiDONE 3 MG TABLET PO (20:37)
[2024-05-18] MEDS: Omeprazole 20 MG CAPSULE.DR PO (06:29)
[2024-05-18] MEDS: Nicotine Polacrilex 2 MG GUM 4 MG BUCCAL ×2 (07:16→12:22)
[2024-05-18] MEDS: Albuterol Sulfate 90 MCG 8 GM INHALER 1 PUFF INHALE (07:27)
[2024-05-18] MEDS: Ezetimibe 10 MG TABLET PO (09:11)
[2024-05-18] MEDS: Ferrous Sulfate 324 MG TABLET.DR PO (09:11)
[2024-05-18 09:12] VITALS: BP 137/75
[2024-05-18] MEDS: amLODIPine Besylate 2.5 MG TABLET PO (09:12)
[2024-05-18 09:13] VITALS: BP 137/75; PULSE 107
[2024-05-18] MEDS: Metoprolol Succinate ER 25 MG TAB.ER.24H PO (09:13)
[2024-05-18] MEDS: risperiDONE 0.5 MG TABLET PO (09:13)
[2024-05-18] MEDS: clonazePAM 0.5 MG TABLET PO ×2 (09:13→20:51)
[2024-05-18] MEDS: Folic Acid 1 MG TABLET PO (09:14)
[2024-05-18] MEDS: Aspirin 81 MG TAB.CHEW PO (09:14)
[2024-05-18] MEDS: Thiamine HCL 100 MG TABLET PO (09:15)
[2024-05-18 09:16] VITALS: BP 137/75; PULSE 107; RESP 16; TEMP 37.1; O2SAT 97
--- NOTE | 2024-05-18 10:13 | HO.PSYCHPN ---
Subjective Subjective Date of Service: 05/18/24 Reason For Visit: psychosis Interim History: Met patient was parts interpreter; discussed with team Patient said that he is feeling good and denies any psychiatric symptoms. He agrees to remain on the unit for medication change and agreed to have the bulk of Risperdal changed to the morning time. Mental Status Exam Mental Status Exam Narrative: Pt is alert and oriented; behavior is cooperative, friendly and calm; mildly disorganized; patient is not in distress; dressed in hospital attire with ear plugs in his ears, adequate hygiene; mood is described as good and affect congruent; eye contact appropriate; Speech is normal rate, volume and prosody and not pressured; no psychomotor agitation/retardation present; thought process is concrete, goal oriented; Thought content is on discharge; otherwise pertinent to relevant topics; no delusional content, paranoid ideations expressed; denies any SI/HI. Did not discuss AVH Patients insight and judgment impaired but appears to be close to baseline per report Diagnostics Vital Signs (24Hr): Vital Signs - 24 hr 05/17/24 20:00 05/18/24 09:12 05/18/24 09:13 Temperature 98.7 F Pulse Rate 96 107 H Respiratory Rate Blood Pressure 166/92 H 137/75 137/75 Pulse Oximetry 97 Oxygen Delivery Method Room Air 05/18/24 09:16 Temperature 98.7 F Pulse Rate 107 H Respiratory Rate 16 Blood Pressure 137/75 Pulse Oximetry 97 Oxygen Delivery Method Room Air BMI result Body Mass Index 25.5 Labs 05/15/24 14:44 05/16/24 07:24 Medications Medications Current Medications Al Hydroxide/Mg Hydroxide (Magnesium Hydrox/Alum Hydrox 30 Ml Oral.Susp) 30 ml PO Q6H PRN PRN Reason: Heartburn/Nausea Albuterol Sulfate (Albuterol Sulfate 90 Mcg 8 Gm Inhaler) 1 puff INHALE RQ6H PRN PRN Reason: Shortness of Breath/Wheezing Last Admin: 05/18/24 07:27 Dose: 1 puff Amlodipine Besylate (Amlodipine Besylate 2.5 Mg Tablet) 2.5 mg PO DAILY [facility]; Protocol Last Admin: 05/18/24 09:12 Dose: 2.5 mg Aspirin (Aspirin 81 Mg Tab.Chew) 81 mg PO DAILY [facility] Last Admin: 05/18/24 09:14 Dose: 81 mg Atorvastatin Calcium (Atorvastatin Calcium 40 Mg Tablet) 40 mg PO BEDTIME [facility] Last Admin: 05/17/24 20:35 Dose: 40 mg Benztropine Mesylate (Benztropine Mesylate 1 Mg Tablet) 1 mg PO BEDTIME [facility] Last Admin: 05/17/24 20:37 Dose: 1 mg Clonazepam (Clonazepam 0.5 Mg Tablet) 0.5 mg PO BID [facility] Last Admin: 05/18/24 09:13 Dose: 0.5 mg Ezetimibe (Ezetimibe 10 Mg Tablet) 10 mg PO DAILY [facility] Last Admin: 05/18/24 09:11 Dose: 10 mg Ferrous Sulfate (Ferrous Sulfate 324 Mg Tablet.) 324 mg PO DAILY [facility] Last Admin: 05/18/24 09:11 Dose: 324 mg Folic Acid (Folic Acid 1 Mg Tablet) 1 mg PO DAILY [facility] Last Admin: 05/18/24 09:14 Dose: 1 mg Hydroxyzine HCl (Hydroxyzine Hcl 25 Mg Tablet) 25 mg PO Q6H PRN PRN Reason: Anxiety Last Admin: 05/16/24 20:49 Dose: 25 mg Magnesium Hydroxide (Milk Of Magnesia 30 Ml Oral.Susp) 30 ml PO DAILY PRN PRN Reason: Constipation Metoprolol Succinate (Metoprolol Succinate Er 25 Mg Tab.Er.24h) 25 mg PO DAILY [facility]; Protocol Last Admin: 05/18/24 09:13 Dose: 25 mg Mirtazapine (Mirtazapine 30 Mg Tablet) 30 mg PO BEDTIME [facility] Last Admin: 05/17/24 20:35 Dose: 30 mg Nicotine Polacrilex (Nicotine Polacrilex 2 Mg Gum) 4 mg BUCCAL Q2H PRN PRN Reason: Nicotine Cravings Last Admin: 05/18/24 07:16 Dose: 4 mg Omeprazole (Omeprazole 20 Mg Capsule.Dr) 20 mg PO DAILY@0630 [facility] Last Admin: 05/18/24 06:29 Dose: 20 mg Risperidone (Risperidone 0.5 Mg Tablet) 0.5 mg PO DAILY [facility] Last Admin: 05/18/24 09:13 Dose: 0.5 mg Risperidone (Risperidone 3 Mg Tablet) 3 mg PO BEDTIME [facility] Last Admin: 05/17/24 20:37 Dose: 3 mg Thiamine HCl (Thiamine Hcl 100 Mg Tablet) 100 mg PO DAILY [facility] Last Admin: 05/18/24 09:15 Dose: 100 mg Trazodone HCl (Trazodone Hcl 100 Mg Tablet) 100 mg PO BEDTIME KAREN Last Admin: 05/17/24 20:37 Dose: 100 mg Allergies Allergies Allergy/AdvReac Type Severity Reaction Status Date / Time acetaminophen Allergy Unknown PANADOL = Verified 05/15/24 14:20 ACETAMINOPHEN SHELLFISH Allergy Mild PATIENT Uncoded 05/15/24 14:20 REPORTS BURNING SENSATION THROUGHOUT OPIATES Allergy Unknown BECAME Uncoded 05/15/24 14:20 ADDICTED PANADOL Allergy Unknown UNKNOWN Uncoded 05/15/24 14:20 Assessment & Plan Assessment & Plan (1) Schizoaffective disorder: Qualifiers: Schizoaffective disorder type: unspecified Qualified Code(s): F25.9 - Schizoaffective disorder, unspecified Status: Acute Code(s): F25.9 - Schizoaffective disorder, unspecified (2) Intellectual delay: Status: Acute Code(s): F81.9 - Developmental disorder of scholastic skills, unspecified Plan 59 yr old male with schizoaffective disorder and unspecified cognitive delay referred by VNA for admission due to worsening confusion, crying spells, possible non-adherence to some of his medications. Hospital course: 05/18 patient reports mood is good and denies any psychiatric symptoms; pleasant, calm and friendly on the unit. Asks to shake service writer's hand frequently but otherwise appropriate. Agrees to changing medications to make bulk of Risperdal in the daytime; switch made since outpatient team concern that patient was not taking evening Risperdal which resulted in this admission. Patient signed CV -will monitor to see if taking Risperdal in the daytime makes him tired. Plan: - CV -Q15 min checks Risperdal 2mg qam Risperdal 1mg qhs (pt was on Risperdal 0.5mg daily and 3mg qhs) - Collateral information from family and providers. - Milieu treatment and group therapy. - Medications: Restarted home medications. - Social work evaluation. - Disposition planning. [facility], [facility]: Risperdal up to 10 mg daily Zyprexa up to 25 mg daily Geodon up to 60 mg daily Patient educated on: diagnosis and medication risk/benefits Informed Consent: understands, does not understand and further education needed Reason for continued inpatient stay Substantial Risk for: rapid decompensation and med/psych decompensation Time Spent With Patient Time: Total time managing care of this patient today ____ minutes.
[2024-05-18 20:00] VITALS: BP 150/81; PULSE 80; TEMP 36.6
[2024-05-18] MEDS: Mirtazapine 30 MG TABLET PO (20:50)
[2024-05-18] MEDS: Atorvastatin Calcium 40 MG TABLET PO (20:50)
[2024-05-18] MEDS: Benztropine Mesylate 0.5 MG TABLET PO (20:51)
[2024-05-18] MEDS: traZODone HCL 100 MG TABLET PO (20:52)
[2024-05-18] MEDS: risperiDONE 3 MG TABLET PO (20:52)
[2024-05-19] MEDS: Omeprazole 20 MG CAPSULE.DR PO (07:12)
[2024-05-19 08:00] VITALS: BP 116/66; PULSE 68; RESP 16; TEMP 37.1; O2SAT 99
[2024-05-19] MEDS: Metoprolol Succinate ER 25 MG TAB.ER.24H PO (08:49)
[2024-05-19] MEDS: amLODIPine Besylate 2.5 MG TABLET PO (08:49)
[2024-05-19] MEDS: risperiDONE 2 MG TABLET PO (09:00)
[2024-05-19] MEDS: Benztropine Mesylate 0.5 MG TABLET PO ×2 (09:01→22:08)
[2024-05-19] MEDS: Thiamine HCL 100 MG TABLET PO (09:01)
[2024-05-19] MEDS: Aspirin 81 MG TAB.CHEW PO (09:01)
[2024-05-19] MEDS: Ferrous Sulfate 324 MG TABLET.DR PO (09:01)
[2024-05-19] MEDS: clonazePAM 0.5 MG TABLET PO ×2 (09:01→22:08)
[2024-05-19] MEDS: Folic Acid 1 MG TABLET PO (09:02)
[2024-05-19] MEDS: Ezetimibe 10 MG TABLET PO (09:02)
[2024-05-19] MEDS: Nicotine Polacrilex 2 MG GUM 4 MG BUCCAL (09:58)
--- NOTE | 2024-05-19 18:07 | HO.PSYCHPN ---
Subjective Subjective Date of Service: 05/19/24 Reason For Visit: psychosis Interim History: Met with patient; discussed with team Patient remains pleasant and calm. He says he is good and is friendly on approach. Not sedated from change in Risperdal making the bulk of it during the day. Sitting in the milieu, socially interacting with others. Mental Status Exam Mental Status Exam Narrative: Pt is alert and oriented; behavior is cooperative, friendly and calm; mildly disorganized; patient is not in distress; dressed in hospital attire with ear plugs in his ears, adequate hygiene; mood is described as good and affect congruent; eye contact appropriate; Speech is normal rate, volume and prosody and not pressured; no psychomotor agitation/retardation present; thought process is concrete, goal oriented; Thought content is on discharge; otherwise pertinent to relevant topics; no delusional content, paranoid ideations expressed; denies any SI/HI. Did not discuss AVH Patients insight and judgment impaired but appears to be close to baseline per report Diagnostics Vital Signs (24Hr): Vital Signs - 24 hr 05/18/24 20:00 05/19/24 08:00 Temperature 97.9 F 98.7 F Pulse Rate 80 68 Respiratory Rate 16 Blood Pressure 150/81 H 116/66 Pulse Oximetry 99 Oxygen Delivery Method Room Air BMI result Body Mass Index 25.5 Labs 05/15/24 14:44 05/16/24 07:24 Medications Medications Current Medications Al Hydroxide/Mg Hydroxide (Magnesium Hydrox/Alum Hydrox 30 Ml Oral.Susp) 30 ml PO Q6H PRN PRN Reason: Heartburn/Nausea Albuterol Sulfate (Albuterol Sulfate 90 Mcg 8 Gm Inhaler) 1 puff INHALE RQ6H PRN PRN Reason: Shortness of Breath/Wheezing Last Admin: 05/18/24 07:27 Dose: 1 puff Amlodipine Besylate (Amlodipine Besylate 2.5 Mg Tablet) 2.5 mg PO DAILY [facility]; Protocol Last Admin: 05/19/24 08:49 Dose: 2.5 mg Aspirin (Aspirin 81 Mg Tab.Chew) 81 mg PO DAILY [facility] Last Admin: 05/19/24 09:01 Dose: 81 mg Atorvastatin Calcium (Atorvastatin Calcium 40 Mg Tablet) 40 mg PO BEDTIME [facility] Last Admin: 05/18/24 20:50 Dose: 40 mg Benztropine Mesylate (Benztropine Mesylate 0.5 Mg Tablet) 0.5 mg PO BID [facility] Last Admin: 05/19/24 09:01 Dose: 0.5 mg Clonazepam (Clonazepam 0.5 Mg Tablet) 0.5 mg PO BID [facility] Last Admin: 05/19/24 09:01 Dose: 0.5 mg Ezetimibe (Ezetimibe 10 Mg Tablet) 10 mg PO DAILY [facility] Last Admin: 05/19/24 09:02 Dose: 10 mg Ferrous Sulfate (Ferrous Sulfate 324 Mg Tablet.) 324 mg PO DAILY [facility] Last Admin: 05/19/24 09:01 Dose: 324 mg Folic Acid (Folic Acid 1 Mg Tablet) 1 mg PO DAILY [facility] Last Admin: 05/19/24 09:02 Dose: 1 mg Hydroxyzine HCl (Hydroxyzine Hcl 25 Mg Tablet) 25 mg PO Q6H PRN PRN Reason: Anxiety Last Admin: 05/16/24 20:49 Dose: 25 mg Magnesium Hydroxide (Milk Of Magnesia 30 Ml Oral.Susp) 30 ml PO DAILY PRN PRN Reason: Constipation Metoprolol Succinate (Metoprolol Succinate Er 25 Mg Tab.Er.24h) 25 mg PO DAILY [facility]; Protocol Last Admin: 05/19/24 08:49 Dose: 25 mg Mirtazapine (Mirtazapine 30 Mg Tablet) 30 mg PO BEDTIME [facility] Last Admin: 05/18/24 20:50 Dose: 30 mg Nicotine Polacrilex (Nicotine Polacrilex 2 Mg Gum) 4 mg BUCCAL Q2H PRN PRN Reason: Nicotine Cravings Last Admin: 05/19/24 09:58 Dose: 4 mg Omeprazole (Omeprazole 20 Mg Capsule.) 20 mg PO DAILY@0630 [facility] Last Admin: 05/19/24 07:12 Dose: 20 mg Risperidone (Risperidone 2 Mg Tablet) 2 mg PO DAILY [facility] Last Admin: 05/19/24 09:00 Dose: 2 mg Risperidone (Risperidone 1 Mg Tablet) 1 mg PO BEDTIME [facility] Thiamine HCl (Thiamine Hcl 100 Mg Tablet) 100 mg PO DAILY [facility] Last Admin: 05/19/24 09:01 Dose: 100 mg Trazodone HCl (Trazodone Hcl 100 Mg Tablet) 100 mg PO BEDTIME [facility] Last Admin: 05/18/24 20:52 Dose: 100 mg Allergies Allergies Allergy/AdvReac Type Severity Reaction Status Date / Time acetaminophen Allergy Unknown PANADOL = Verified 05/15/24 14:20 ACETAMINOPHEN SHELLFISH Allergy Mild PATIENT Uncoded 05/15/24 14:20 REPORTS BURNING SENSATION THROUGHOUT OPIATES Allergy Unknown BECAME Uncoded 05/15/24 14:20 ADDICTED PANADOL Allergy Unknown UNKNOWN Uncoded 05/15/24 14:20 Assessment & Plan Assessment & Plan (1) Schizoaffective disorder: Qualifiers: Schizoaffective disorder type: unspecified Qualified Code(s): F25.9 - Schizoaffective disorder, unspecified Status: Acute Code(s): F25.9 - Schizoaffective disorder, unspecified (2) Intellectual delay: Status: Acute Code(s): F81.9 - Developmental disorder of scholastic skills, unspecified Plan 59 yr old male with schizoaffective disorder and unspecified cognitive delay referred by [facility] for admission due to worsening confusion, crying spells, possible non-adherence to some of his medications. Hospital course: 05/18 patient reports mood is good and denies any psychiatric symptoms; pleasant, calm and friendly on the unit. Asks to shake music writer's hand frequently but otherwise appropriate. Agrees to changing medications to make bulk of Risperdal in the daytime; switch made since outpatient team concern that patient was not taking evening Risperdal which resulted in this admission. Patient signed CV -will monitor to see if taking Risperdal in the daytime makes him tired. 05/19 Patient remains pleasant and calm. He says he is good and is friendly on approach. Not sedated from change in Risperdal making the bulk of it during the day. Sitting in the milieu, socially interacting with others. Plan: - CV -Q15 min checks Risperdal 3mg qam Risperdal 0.5 mg qhs (pt was on Risperdal 0.5mg daily and 3mg qhs) - Collateral information from family and providers. - Milieu treatment and group therapy. - Medications: Restarted home medications. - Social work evaluation. - Disposition planning. [facility]: Risperdal up to 10 mg daily Zyprexa up to 25 mg daily Geodon up to 60 mg daily Patient educated on: diagnosis Reason for continued inpatient stay Substantial Risk for: stable for discharge Time Spent With Patient Time: Total time managing care of this patient today ____ minutes.
[2024-05-19 20:30] VITALS: BP 132/70; PULSE 77; RESP 16; TEMP 36.7; O2SAT 98
[2024-05-19] MEDS: Albuterol Sulfate 90 MCG 8 GM INHALER 1 PUFF INHALE (21:19)
[2024-05-19] MEDS: Mirtazapine 30 MG TABLET PO (22:07)
[2024-05-19] MEDS: Atorvastatin Calcium 40 MG TABLET PO (22:08)
[2024-05-19] MEDS: traZODone HCL 100 MG TABLET PO (22:08)
[2024-05-20] MEDS: Omeprazole 20 MG CAPSULE.DR PO (06:05)
[2024-05-20] MEDS: Nicotine Polacrilex 2 MG GUM 4 MG BUCCAL ×3 (06:06→21:46)
[2024-05-20 09:15] VITALS: BP 151/85; PULSE 89; RESP 18; TEMP 36.9; O2SAT 99
[2024-05-20] MEDS: Ezetimibe 10 MG TABLET PO (09:46)
[2024-05-20] MEDS: Thiamine HCL 100 MG TABLET PO (09:46)
[2024-05-20] MEDS: Benztropine Mesylate 0.5 MG TABLET PO ×2 (09:46→21:46)
[2024-05-20] MEDS: clonazePAM 0.5 MG TABLET PO ×2 (09:46→21:46)
[2024-05-20] MEDS: Aspirin 81 MG TAB.CHEW PO (09:46)
[2024-05-20] MEDS: Ferrous Sulfate 324 MG TABLET.DR PO (09:46)
[2024-05-20] MEDS: Metoprolol Succinate ER 25 MG TAB.ER.24H PO (09:47)
[2024-05-20] MEDS: Folic Acid 1 MG TABLET PO (09:47)
[2024-05-20] MEDS: risperiDONE 3 MG TABLET PO (09:47)
[2024-05-20] MEDS: amLODIPine Besylate 2.5 MG TABLET PO (09:47)
--- NOTE | 2024-05-20 10:23 | HO.PSYCHPN ---
Subjective Subjective Date of Service: 05/20/24 Reason For Visit: psychosis Interim History: seen with weaving inspector; discussed with team pt reports he is good and denies any psych symptoms including any AVH or SI. He says he is not sleepy in the day time with medications moved to day time. He's looking forward to go home and see lilian. -remains pleasant, friendly, cooperative. Mental Status Exam Mental Status Exam Narrative: Pt is alert and oriented; behavior is cooperative, friendly and calm; mildly disorganized; patient is not in distress; dressed in hospital attire with ear plugs in his ears, adequate hygiene; mood is described as good and affect congruent; eye contact appropriate; Speech is normal rate, volume and prosody and not pressured; no psychomotor agitation/retardation present; thought process is concrete, goal oriented; Thought content is on discharge; otherwise pertinent to relevant topics; no delusional content, paranoid ideations expressed; denies any SI/HI. Did not discuss AVH Patients insight and judgment impaired but at baseline. Diagnostics Vital Signs (24Hr): Vital Signs - 24 hr 05/19/24 20:30 Temperature 98.1 F Pulse Rate 77 Respiratory Rate 16 Blood Pressure 132/70 Pulse Oximetry 98 Oxygen Delivery Method Room Air BMI result Body Mass Index 25.5 Labs 05/15/24 14:44 05/16/24 07:24 Medications Medications Current Medications Al Hydroxide/Mg Hydroxide (Magnesium Hydrox/Alum Hydrox 30 Ml Oral.Susp) 30 ml PO Q6H PRN PRN Reason: Heartburn/Nausea Albuterol Sulfate (Albuterol Sulfate 90 Mcg 8 Gm Inhaler) 1 puff INHALE RQ6H PRN PRN Reason: Shortness of Breath/Wheezing Last Admin: 05/19/24 21:19 Dose: 1 puff Amlodipine Besylate (Amlodipine Besylate 2.5 Mg Tablet) 2.5 mg PO DAILY [facility]; Protocol Last Admin: 05/20/24 09:47 Dose: 2.5 mg Aspirin (Aspirin 81 Mg Tab.Chew) 81 mg PO DAILY [facility] Last Admin: 05/20/24 09:46 Dose: 81 mg Atorvastatin Calcium (Atorvastatin Calcium 40 Mg Tablet) 40 mg PO BEDTIME [facility] Last Admin: 05/19/24 22:08 Dose: 40 mg Benztropine Mesylate (Benztropine Mesylate 0.5 Mg Tablet) 0.5 mg PO BID [facility] Last Admin: 05/20/24 09:46 Dose: 0.5 mg Clonazepam (Clonazepam 0.5 Mg Tablet) 0.5 mg PO BID [facility] Last Admin: 05/20/24 09:46 Dose: 0.5 mg Ezetimibe (Ezetimibe 10 Mg Tablet) 10 mg PO DAILY [facility] Last Admin: 05/20/24 09:46 Dose: 10 mg Ferrous Sulfate (Ferrous Sulfate 324 Mg Tablet.) 324 mg PO DAILY [facility] Last Admin: 05/20/24 09:46 Dose: 324 mg Folic Acid (Folic Acid 1 Mg Tablet) 1 mg PO DAILY [facility] Last Admin: 05/20/24 09:47 Dose: 1 mg Hydroxyzine HCl (Hydroxyzine Hcl 25 Mg Tablet) 25 mg PO Q6H PRN PRN Reason: Anxiety Last Admin: 05/16/24 20:49 Dose: 25 mg Magnesium Hydroxide (Milk Of Magnesia 30 Ml Oral.Susp) 30 ml PO DAILY PRN PRN Reason: Constipation Metoprolol Succinate (Metoprolol Succinate Er 25 Mg Tab.Er.24h) 25 mg PO DAILY [facility]; Protocol Last Admin: 05/20/24 09:47 Dose: 25 mg Mirtazapine (Mirtazapine 30 Mg Tablet) 30 mg PO BEDTIME [facility] Last Admin: 05/19/24 22:07 Dose: 30 mg Nicotine Polacrilex (Nicotine Polacrilex 2 Mg Gum) 4 mg BUCCAL Q2H PRN PRN Reason: Nicotine Cravings Last Admin: 05/20/24 10:15 Dose: 4 mg Omeprazole (Omeprazole 20 Mg Capsule.) 20 mg PO DAILY@0630 [facility] Last Admin: 05/20/24 06:05 Dose: 20 mg Risperidone (Risperidone 3 Mg Tablet) 3 mg PO DAILY [facility] Last Admin: 05/20/24 09:47 Dose: 3 mg Risperidone (Risperidone 0.5 Mg Tablet) 0.5 mg PO BEDTIME [facility] Thiamine HCl (Thiamine Hcl 100 Mg Tablet) 100 mg PO DAILY [facility] Last Admin: 05/20/24 09:46 Dose: 100 mg Trazodone HCl (Trazodone Hcl 100 Mg Tablet) 100 mg PO BEDTIME [facility] Last Admin: 05/19/24 22:08 Dose: 100 mg Allergies Allergies Allergy/AdvReac Type Severity Reaction Status Date / Time acetaminophen Allergy Unknown PANADOL = Verified 05/15/24 14:20 ACETAMINOPHEN SHELLFISH Allergy Mild PATIENT Uncoded 05/15/24 14:20 REPORTS BURNING SENSATION THROUGHOUT OPIATES Allergy Unknown BECAME Uncoded 05/15/24 14:20 ADDICTED PANADOL Allergy Unknown UNKNOWN Uncoded 05/15/24 14:20 Assessment & Plan Assessment & Plan (1) Schizoaffective disorder: Qualifiers: Schizoaffective disorder type: unspecified Qualified Code(s): F25.9 - Schizoaffective disorder, unspecified Status: Acute Code(s): F25.9 - Schizoaffective disorder, unspecified (2) Intellectual delay: Status: Acute Code(s): F81.9 - Developmental disorder of scholastic skills, unspecified Plan 59 yr old male with schizoaffective disorder and unspecified cognitive delay referred by [facility] for admission due to worsening confusion, crying spells, possible non-adherence to some of his medications. Hospital course: 05/18 patient reports mood is good and denies any psychiatric symptoms; pleasant, calm and friendly on the unit. Asks to shake designer/writer's hand frequently but otherwise appropriate. Agrees to changing medications to make bulk of Risperdal in the daytime; switch made since outpatient team concern that patient was not taking evening Risperdal which resulted in this admission. Patient signed CV -will monitor to see if taking Risperdal in the daytime makes him tired. 05/19 Patient remains pleasant and calm. He says he is good and is friendly on approach. Not sedated from change in Risperdal making the bulk of it during the day. Sitting in the milieu, socially interacting with others. 7/3 pt at baseline; remains calm, cooperative, in good behavioral and impulse control; not tired during daytime despite moving Risperdal to day (to improve adherence with daytime VNA). Denies any AVH. Looking forward to going home and appropriate to return to the community for care. Plan: - CV -Q15 min checks Risperdal 3mg qam Risperdal 0.5 mg qhs (pt was on Risperdal 0.5mg daily and 3mg qhs) - Collateral information from family and providers. - Milieu treatment and group therapy. - Medications: Restarted home medications. - Social work evaluation. - Disposition planning. [facility]: Risperdal up to 10 mg daily Zyprexa up to 25 mg daily Geodon up to 60 mg daily Patient educated on: diagnosis and medication risk/benefits Informed Consent: understands, does not understand and further education needed Reason for continued inpatient stay Substantial Risk for: stable for discharge Time Spent With Patient Time: Total time managing care of this patient today ____ minutes.
[2024-05-20] MEDS: Albuterol Sulfate 90 MCG 8 GM INHALER 1 PUFF INHALE (12:42)
--- NOTE | 2024-05-20 18:08 | PM.PSYDC ---
DS: Providers Provider Date of Service: 05/21/24 Date of admission: 05/15/24 21:14 Date of discharge: 05/21/24 Primary care physician: Yelena Physician Attending physician on admission: Cordell Ferris Attending physician on discharge: Jaiden Pollack DS: Diagnosis Discharge Diagnosis (1) Schizoaffective disorder: Status: Acute (2) Intellectual delay: Status: Acute DS: Medications Discharge Medications Home Medications: Home Medications ?Medication ?Instructions ?Recorded ?Confirmed aspirin 81 mg tablet 81 mg PO DAILY 06/11/21 05/15/24 albuterol sulfate 90 mcg/actuation 2 puff inhalation Q4H PRN Wheezing 10/16/22 05/15/24 aerosol inhaler (ProAir HFA) ferrous sulfate 325 mg (65 mg 325 mg PO DAILY 12/06/22 05/15/24 iron) tablet,delayed release folic acid 1 mg tablet 1 mg PO DAILY 05/16/23 05/15/24 thiamine HCl (vitamin B1) 100 mg 100 mg PO DAILY 05/16/23 05/15/24 tablet metoprolol succinate 25 mg 25 mg PO DAILY 11/13/23 05/15/24 tablet,extended release 24 hr Previous Rx's ?Medication ?Instructions ?Recorded omeprazole 20 mg capsule,delayed 20 mg PO DAILY@0630 #30 caps 10/31/22 release atorvastatin 40 mg tablet 40 mg PO BEDTIME #90 tabs 12/17/23 amlodipine 2.5 mg tablet 2.5 mg PO DAILY #90 tabs 01/16/24 ezetimibe 10 mg tablet 10 mg PO DAILY #90 tabs 04/29/24 benztropine 0.5 mg tablet 0.5 mg PO BID 30 days #60 tabs 05/20/24 clonazepam 0.5 mg tablet 0.5 mg PO BID 30 days #60 tabs 05/20/24 mirtazapine 30 mg tablet 30 mg PO BEDTIME depressive 05/20/24 disorder 30 days #30 tabs nicotine (polacrilex) 2 mg gum 4 mg buccal Q2H PRN Nicotine 05/20/24 Cravings 30 days #100 ea risperidone 0.5 mg tablet 0.5 mg PO BEDTIME 30 days #30 tabs 05/20/24 risperidone 3 mg tablet 3 mg PO DAILY 30 days #30 tabs 05/20/24 trazodone 100 mg tablet 100 mg PO BEDTIME 30 days #30 tabs 05/20/24 Mental Status Exam Mental Status Exam Narrative: Pt is alert and oriented; behavior is cooperative, friendly and calm; mildly disorganized; patient is not in distress; dressed in hospital attire with ear plugs in his ears, adequate hygiene; mood is described as good and affect congruent; eye contact appropriate; Speech is normal rate, volume and prosody and not pressured; no psychomotor agitation/retardation present; thought process is concrete, goal oriented; Thought content is on discharge; otherwise pertinent to relevant topics; no delusional content, paranoid ideations expressed; denies any SI/HI. Did not discuss AVH Patients insight and judgment impaired but at baseline. Data Data Completed and Pending Completed studies during hospitalization [Text1]: 05/15/24 05/15/24 05/16/24 14:44 15:22 07:24 WBC 9.3 RBC 5.32 Hgb 15.4 Hct 45.4 MCV 85.3 MCH 28.9 MCHC 33.9 RDW 15.3 Plt Count 239 MPV 10.4 Immature Gran % (Auto) 0.3 Neut % (Auto) 74.1 H Lymph % (Auto) 14.6 L [place] % (Auto) 10.3 Eos % (Auto) 0.4 Baso % (Auto) 0.3 Lymph # (Auto) 1.4 [place] # (Auto) 1.0 Eos # (Auto) 0.0 Baso # (Auto) 0.0 Abs Immat Gran (auto) 0.03 Absolute Neuts (auto) 6.9 Absolute Nucleated RBC 0.000 Nucleated RBC % (auto) 0.0 Sodium 142 143 Potassium 3.4 3.2 L Chloride 108 108 Carbon Dioxide 25 24 Anion Gap 12 14 BUN 17 H 22 H Creatinine 0.76 0.84 Estim Creat Clear Calc 93.7 74.9 Estimated GFR > 60 > 60 Random Glucose 132 H Fasting Glucose 176 H Calcium 10.3 H D 9.9 Total Bilirubin 0.4 0.6 AST 56 H 41 H ALT 42 H 36 Alkaline Phosphatase 101 85 Total Protein 9.1 H 7.4 Albumin 5.0 4.1 Triglycerides 48 Cholesterol 99 LDL Cholesterol, Calc 60 HDL Cholesterol 30 L Urine Color Yellow Urine Appearance Clear Urine pH 5.5 Ur Specific [place] >= 1.030 H Urine Protein 30 (1+) H Urine Glucose (UA) Negative Urine Ketones 15 Urine Blood Negative Urine Nitrite Negative Ur Leukocyte Esterase Trace H Urine RBC 3-5 H Urine WBC 6-10 H Ur Squamous Epith Cells 0-2 Urine Bacteria None Seen Hyaline Casts 0-2 Urine Opiates Screen Not Detected Ur Buprenorphine Scrn Not Detected Ur Oxycodone Screen Not Detected Urine Methadone Screen Not Detected Urine Fentanyl Screen Not Detected Ur Barbiturates Screen Not Detected Ur Phencyclidine Scrn Not Detected Ur Amphetamines Screen Not Detected U Benzodiazepines Scrn Not Detected Urine Cocaine Screen Not Detected U Marijuana (THC) Screen POSITIVE H Ethyl Alcohol < 10 05/15/24 Unknown Urine clean catch - Urine jenkins top Urine Culture - Final DS: Summary Hospital Course Hospital Course: 59 yr old male with schizoaffective disorder and unspecified cognitive delay referred by [facility] for admission due to worsening confusion, crying spells, possible non-adherence to some of his medications. Hospital course: 05/18 patient reports mood is good and denies any psychiatric symptoms; pleasant, calm and friendly on the unit. Asks to shake feature writer's hand frequently but otherwise appropriate. Agrees to changing medications to make bulk of Risperdal in the daytime; switch made since outpatient team concern that patient was not taking evening Risperdal which resulted in this admission. Patient signed CV -will monitor to see if taking Risperdal in the daytime makes him tired. 05/19 Patient remains pleasant and calm. He says he is good and is friendly on approach. Not sedated from change in Risperdal making the bulk of it during the day. Sitting in the milieu, socially interacting with others. 7/3 pt at baseline; remains calm, cooperative, in good behavioral and impulse control; not tired during daytime despite moving Risperdal to day (to improve adherence with daytime VNA). Denies any AVH. Looking forward to going home and appropriate to return to the community for care. Medications: Risperdal 3mg Risperdal 0.5mg qhs (pt was formerly on same total daily dose but the bulk of it (3mg) was at bedtime) [facility]: Risperdal up to 10 mg daily Zyprexa up to 25 mg daily Geodon up to 60 mg daily Time spent discussing smoking cessation with patient: 3 to 10 minutes Status at Discharge Functional status at discharge: independent ambulation Time Spent with Patient Time attestation: Total time managing care of this patient today ____ minutes. Time spent: Less than 30 minutes Discharge Plan Discharge Anticipated Discharge Date/Time: 05/21/24 11:00 Patient Disposition: Home, Self-Care Discharge Diagnosis: schizoaffective disorder Referrals: [facility] - Therapy with Lesa [Other] - 05/26/24 2:[address] Jordan Bishop [Other] - 06/15/24 3:30 pm (Telehealth) [facility] [Other] - 05/22/24 (They will start back up on 05/22/24) Physician,Unknown J [Primary Care Provider] - 1 Week Discharge Medications: New nicotine (polacrilex) 2 mg Gum 4 mg buccal Q2H PRN (Reason: Nicotine Cravings) 30 Days Qty: 100 0RF Continued atorvastatin 40 mg tablet 40 mg PO BEDTIME Qty: 90 3RF amlodipine 2.5 mg tablet 2.5 mg PO DAILY Qty: 90 3RF ezetimibe 10 mg tablet 10 mg PO DAILY Qty: 90 3RF aspirin 81 mg Tablet 81 mg PO DAILY metoprolol succinate 25 mg tablet extended release 24 hr 25 mg PO DAILY omeprazole 20 mg Capsule,Delayed Release(Dr/Ec) 20 mg PO DAILY@0630 Qty: 30 0RF albuterol sulfate [ProAir HFA] 90 mcg/actuation HFA aerosol inhaler 2 puff inhalation Q4H PRN (Reason: Wheezing) clonazepam 0.5 mg Tablet 0.5 mg PO BID 30 Days Qty: 60 0RF trazodone 100 mg Tablet 100 mg PO BEDTIME 30 Days Qty: 30 1RF mirtazapine 30 mg tablet 30 mg PO BEDTIME 30 Days Qty: 30 1RF ferrous sulfate 325 mg (65 mg iron) tablet,delayed release (DR/EC) 325 mg PO DAILY folic acid 1 mg tablet 1 mg PO DAILY thiamine HCl (vitamin B1) 100 mg tablet 100 mg PO DAILY Changed benztropine 0.5 mg tablet 0.5 mg PO BID 30 Days Qty: 60 1RF risperidone 3 mg Tablet 3 mg PO DAILY 30 Days Qty: 30 1RF risperidone 0.5 mg Tablet 0.5 mg PO BEDTIME 30 Days Qty: 30 1RF Discharge Orders: Discharge Order (Routine); Ordered 05/21/24 Ordered By: Jaiden Pollack Diet: Regular diet Activity on Discharge: As tolerated Stand Alone Forms: Patient Portal Discharge page Print Language: Sudanese Care Plan Goals: Maintain mood and safe behaviors Take medications as prescribed Practice coping skills Continue with outpatient providers and reach out to them as needed Health Concerns: Mood stability and behaviors Hypertension Elevated cholesterol Iron deficient anemia Plan of Treatment: Follow up with your PCP, psychiatric provider and other outpatient providers regarding above concerns Take medications as prescribed Assessment: Risk assessment at time of discharge:? Patient was interviewed prior to discharge and found to be fully oriented and without any SI or HI. Patient has improved insight and judgment and wants to continue treatment. Patient is not in imminent risk of harm to self or others and has a safety plan that includes presenting to the closest ER or calling 911 if feeling unsafe.? Patient has been observed closely by nursing and unit staff throughout admission; patient has not engaged in any behaviors that suggest dangerousness to self or others and has demonstrated appropriate behaviors and impulse control
[2024-05-20 20:00] VITALS: BP 142/95; PULSE 94; RESP 18; TEMP 36.9; O2SAT 98
[2024-05-20] MEDS: Atorvastatin Calcium 40 MG TABLET PO (21:46)
[2024-05-20] MEDS: risperiDONE 0.5 MG TABLET PO (21:46)
[2024-05-20] MEDS: Mirtazapine 30 MG TABLET PO (21:46)
[2024-05-20] MEDS: traZODone HCL 100 MG TABLET PO (21:46)
[2024-05-21] MEDS: Omeprazole 20 MG CAPSULE.DR PO (06:07)
[2024-05-21 09:15] VITALS: BP 130/62; PULSE 73; RESP 18; TEMP 36.8; O2SAT 95
[2024-05-21] MEDS: Thiamine HCL 100 MG TABLET PO (09:15)
[2024-05-21] MEDS: Benztropine Mesylate 0.5 MG TABLET PO (09:15)
[2024-05-21] MEDS: risperiDONE 3 MG TABLET PO (09:15)
[2024-05-21] MEDS: Folic Acid 1 MG TABLET PO (09:15)
[2024-05-21] MEDS: Ezetimibe 10 MG TABLET PO (09:15)
[2024-05-21] MEDS: Ferrous Sulfate 324 MG TABLET.DR PO (09:15)
[2024-05-21] MEDS: clonazePAM 0.5 MG TABLET PO (09:15)
[2024-05-21] MEDS: Aspirin 81 MG TAB.CHEW PO (09:15)
[2024-05-21] MEDS: Metoprolol Succinate ER 25 MG TAB.ER.24H PO (09:15)
[2024-05-21] MEDS: amLODIPine Besylate 2.5 MG TABLET PO (09:16)
== END 2024-05-21 11:17 | disposition home or self-care (01) | DRG 750 ==
LOC: HO.ED 14:55 → HO.PADLT16 21:39 → HO.EDOVER 05-16 19:31 → HO.PM5 05-16 19:31
PROVIDERS: Admitting Provider Psychiatry & Neurology Psychiatry; Emergency Provider Emergency Medicine; Visit Provider Psychiatry & Neurology Psychiatry
DX: F25.9 Schizoaffective disorder, unspecified (principal); E78.5 Hyperlipidemia, unspecified; F17.210 Nicotine dependence, cigarettes, uncomplicated; N40.0 Benign prostatic hyperplasia without lower urinary tract symptoms; I10 Essential (primary) hypertension; R62.50 Unspecified lack of expected normal physiological development in childhood; I25.10 Atherosclerotic heart disease of native coronary artery without angina pectoris; J44.9 Chronic obstructive pulmonary disease, unspecified; Z71.6 Tobacco abuse counseling; Z79.82 Long term (current) use of aspirin; Z79.899 Other long term (current) drug therapy
CPT/HCPCS: 36415; 80053; 80061; 80307; 81001; 85025; 87086; 93005; 99285; S9485

== ENCOUNTER → 2024-05-15 14:53 | Outpatient (BNV) | payer MEDICAID, SELFPAY | PROVIDERS: Emergency Provider Emergency Medicine; Visit Provider Internal Medicine Cardiovascular Disease | DX: R07.9 Chest pain, unspecified (principal); R94.31 Abnormal electrocardiogram [ECG] [EKG] | CPT/HCPCS: 93010 ==

== ENCOUNTER → 2024-05-15 21:14 | Outpatient (BNV) | payer OTHER, SELFPAY | PROVIDERS: Admitting Provider Psychiatry & Neurology Psychiatry; Emergency Provider Emergency Medicine; Visit Provider Psychiatry & Neurology Psychiatry | DX: F25.9 Schizoaffective disorder, unspecified (principal); F81.9 Developmental disorder of scholastic skills, unspecified | CPT/HCPCS: 99231; 99232 ==

== ENCOUNTER 2024-05-24 20:02 | Emergency (ER) | payer MEDICAID, SELFPAY ==
--- NOTE | 2024-05-24 | ECG_ITS ---
Test Reason : ALRTERED MENTAL STATUS Blood Pressure : / mmHG Vent. Rate : 114 BPM Atrial Rate : 114 BPM P-R Int : 152 ms QRS Dur : 086 ms QT Int : 336 ms P-R-T Axes : 039 025 013 degrees QTc Int : 463 ms Sinus tachycardia Minimal voltage criteria for LVH, may be normal variant ( Sokolow-Fisher ) Inferior infarct (cited on or before 21-APR-2020) Abnormal ECG When compared with ECG of 15-MAY-2024 14:53, No significant changes seen Referred By: Tejas Tesfaye Electronically Signed By:Bronson Butler
[2024-05-24 20:05] VITALS: BP 142/80; BP 147/83; PULSE 117; RESP 18; TEMP 37.1; O2SAT 97; O2SAT 98; BMI 23.0
[2024-05-24 20:36] LABS: MANUAL DIFF FLAG NO
--- NOTE | 2024-05-24 20:37 | PC.NURSE ---
this rn assumed care of pt, transit coach operator at bedside. pt alert to self and place but unable to state what year or month it is. per ems family on scene reports pt is a heavy drinker and becomes altered with withdrawl. at this time pt denies all etoh use. pt denies pain. reports he is here due to his blood pressure fluctuating. 20G placed in right forearm, labs obtained and sent to lab.
[2024-05-24 20:38] LABS: Basophils Percent Auto 0.3 % (0-2); Eosinophils Percent Auto 0.4 % (0-4); Hematocrit 46.7 % (42.0-52.0); Hemoglobin 15.6 g/dl (14.0-18.0); Imm Gran Abs Auto 0.03 X10*3/uL (0.00-0.03); Imm Gran Pct Auto 0.3 % (0.0-0.4); Lymphocytes Absolute Auto 1.3 X10*3/uL (1.2-4.9); Lymphocytes Percent Auto 13.8 % (20-40); Mean Corpuscular HGB Conc 33.4 g/dl (31.0-36.0); Mean Corpuscular Hemoglobin 28.6 pg (27.0-33.0); Mean Corpuscular Volume 85.5 fL (80.0-98.0); Mean Platelet Volume 9.7 fL (9.4-12.4); Monocytes Absolute Auto 0.8 X10*3/uL (0.1-1.2); Monocytes Percent Auto 9.1 % (2-11); Neutrophils Absolute Auto 7.1 x10*3/uL (2.0-8.3); Neutrophils Percent Auto 76.1 % (45-73); Platelet Count 238 X10*3/uL (160-400); Red Blood Count 5.46 X10*6/uL (4.60-5.80); Red Cell Distribution Width 15.2 % (11.0-16.0); White Blood Count 9.3 X10*3/uL (4.8-10.8)
--- NOTE | 2024-05-24 20:59 | ED.AMS ---
HPI - Altered Mental Status General Chief Complaint: Altered Mental Status Stated Complaint: AMS,DELIRIUM,ALCOHOL WITHDRAWL? Time Seen by Provider: 05/24/24 20:09 Source: family (Patient's brother, Chris) Mode of arrival: EMS Limitations: altered mental status History of Present Illness ED Provider: Dr. Tejas Tesfaye HPI narrative: 59-year-old male with a history of intellectual disability (patient does not read or write) schizoaffective disorder, hepatitis-C, coronary disease, hypertension, hyperlipidemia, STEMI, COPD, BPH who was brought to emergency department for evaluation of altered mental status. Information was obtained from the patient's brother, Chris Morillo who was reached at following phone number: . His brother speaks Montserratian only and the automotive parts interpreter was used. The patient lives at home with his mother. The patient's brother states that the patient was discharged from the psychiatric unit on 05/20/2024 and since being home he is become more confused and disoriented. The brother states that there is a nurse that comes to the house to make sure that he takes his medications and the brother believes that the patient has been compliant. The brother states the patient does not drink alcohol and has not used marijuana or other drugs recently. The patient was oriented to person, he knew that he was at [facility]. He kept repeating that he lives on the 1st floor [place] He was not able to answer other questions appropriately. He does have your plugs in both ears and he is speaking to himself and Montserr[place]. I did review the patient's admission no on 05/16/2024, at that time the patient was confused, agitated and tearful, was reported that he was not eating or sleeping well and he was admitted for increased confusion. Patient's discharge note state that he was improved at the time of discharge. on 05/20/2024. Related Data Home Medications ?Medication ?Instructions ?Recorded ?Confirmed ferrous sulfate 325 mg (65 mg 325 mg PO DAILY 12/06/22 05/25/24 iron) tablet,delayed release folic acid 1 mg tablet 1 mg PO DAILY 05/16/23 05/25/24 thiamine HCl (vitamin B1) 100 mg 100 mg PO DAILY 05/16/23 05/25/24 tablet metoprolol succinate 25 mg 25 mg PO DAILY 11/13/23 05/25/24 tablet,extended release 24 hr albuterol sulfate 90 mcg/actuation 2 puff inhalation Q4H PRN Wheezing 05/25/24 05/25/24 aerosol inhaler aspirin 81 mg tablet,delayed 81 mg PO DAILY 05/25/24 05/25/24 release Previous Rx's ?Medication ?Instructions ?Recorded omeprazole 20 mg capsule,delayed 20 mg PO DAILY@0630 #30 caps 10/31/22 release atorvastatin 40 mg tablet 40 mg PO BEDTIME #90 tabs 12/17/23 amlodipine 2.5 mg tablet 2.5 mg PO DAILY #90 tabs 01/16/24 ezetimibe 10 mg tablet 10 mg PO DAILY #90 tabs 04/29/24 benztropine 0.5 mg tablet 0.5 mg PO BID 30 days #60 tabs 05/20/24 clonazepam 0.5 mg tablet 0.5 mg PO BID 30 days #60 tabs 05/20/24 mirtazapine 30 mg tablet 30 mg PO BEDTIME depressive 05/20/24 disorder 30 days #30 tabs nicotine (polacrilex) 2 mg gum 4 mg buccal Q2H PRN Nicotine 05/20/24 Cravings 30 days #100 ea risperidone 0.5 mg tablet 0.5 mg PO BEDTIME 30 days #30 tabs 05/20/24 risperidone 3 mg tablet 3 mg PO DAILY 30 days #30 tabs 05/20/24 trazodone 100 mg tablet 100 mg PO BEDTIME 30 days #30 tabs 05/20/24 Allergies Allergy/AdvReac Type Severity Reaction Status Date / Time acetaminophen Allergy Unknown PANADOL = Verified 05/24/24 20:18 ACETAMINOPHEN SHELLFISH Allergy Mild PATIENT Uncoded 05/24/24 20:18 REPORTS BURNING SENSATION THROUGHOUT OPIATES Allergy Unknown BECAME Uncoded 05/24/24 20:18 ADDICTED PANADOL Allergy Unknown UNKNOWN Uncoded 05/24/24 20:18 Review of Systems Review of Systems: Yes all other systems are reviewed and are negative PMFSH Past Medical History Medical History Schizoaffective disorder History of hepatitis C CAD (coronary artery disease) (~2019) Chest pain Palpitations Hypertension Hyperlipidemia History of ST elevation myocardial infarction (STEMI) (~2019) COPD (chronic obstructive pulmonary disease) Cough Nicotine dependence, cigarettes, uncomplicated Tubular adenoma BPH (benign prostatic hyperplasia) Surgical History History of heart artery stent (~2019) History of colonoscopy (~2021) History of esophagogastroduodenoscopy (EGD) (~2021) History of right inguinal hernia repair (~2003) History of left inguinal hernia repair (~2007) Family History Family History Father Edema Mother Developmental delay Social History Social History Household Members: Family Housing: Apartment Do you presently have visiting nurse or other home services: Yes Unable to assess alcohol history related to: Unable to respond Alcohol intake: never Patient Tobacco Use Status: Current everyday Tobacco user Tobacco use type: Cigarette Cigarette Packs Per Day: 1 Cigarettes Per Day: 20.0 Years Smoked: onset 12yo, 1ppd x 44yrs, 40pyh - Smoked in Last 30 Days: No e-Cigarette/Vaping Use: Never Used Second Hand Smoke Exposure: No Use of substances other than those prescribed or required for medical reasons: No Substance Use Type: Marijuana Advance Directives: No Advance Directives Information Provided: No Do you have a plan to hurt others: No Plan service: No Current occupational status: disabled Sexual orientation: Straight/Heterosexual Physical Exam ED Vital Signs: Vital Signs - 24 hr 05/25/24 11:45 05/25/24 14:12 05/25/24 22:23 Temperature 99.0 F 97.2 F Pulse Rate 65 66 Respiratory Rate 20 18 Blood Pressure 150/89 H 150/89 H 118/62 Pulse Oximetry 98 99 Oxygen Delivery Method Room Air Room Air 05/26/24 07:53 Temperature 97.6 F Pulse Rate 112 H Respiratory Rate 16 Blood Pressure 134/77 Pulse Oximetry 95 Oxygen Delivery Method Room Air BMI result Body Mass Index 23.0 Vital signs revealed an elevated heart rate of 117 and elevated blood pressure of 147/83 Exam: General: Awake, alert , he is wearing ear plugs in both ears, he is speaking out loud to himself in [place] Head: Normocephalic, atraumatic EENT: PERRL, Lids normal, sclera normal, conjunctiva normal, nose normal , ears normal, throat without erythema or exudates Neck: Supple, no adenopathy Lung: breath sounds symmetric, no wheezing, rales or rhonchi Chest: symmetric movement, nontender Heart: regular rate and rhythm, normal S1, S2 no murmurs or rubs Abdomen: soft, non-tender, nondistended, normal bowel sounds Back: no vertebral tenderness, no CVAT Extremities: no deformities, moves all extremities symmetrically Neuro: Awake, oriented to person, cranial nerves intact strength is symmetric bilaterally Psych: Patient is oriented to person and and place, he answer some questions appropriately but repeats several answers not related to the question such as I live on the 1st floor and [place] Course Reevaluation(s) Reevaluation #1: Patient was medically cleared by Dr. Tesfaye, he is waiting for psychiatric evaluation, remained stable Time: 11:12 Reevaluation #2: 05/26/24-- physician observation completed at 09:44. Patient cleared by care team and psychiatry for discharge home, family will be picking up in the emergency department. Time: 09:44 Medications Administered Generic Name Dose Route Start Last Admin Trade Name Freq PRN Reason Stop Dose Admin Amlodipine Besylate 2.5 mg 05/25/24 13:00 05/26/24 08:16 Amlodipine Besylate 2.5 Mg Tablet PO 2.5 mg DAILY KAREN Administration Protocol Aspirin 81 mg 05/25/24 13:00 05/26/24 08:16 Aspirin Enteric Coated 81 Mg Tablet. PO 81 mg DAILY KAREN Administration Atorvastatin Calcium 40 mg 05/25/24 21:00 05/25/24 22:17 Atorvastatin Calcium 40 Mg Tablet PO 40 mg BEDTIME KAREN Administration Benztropine Mesylate 1 mg 05/26/24 09:00 05/26/24 08:16 Benztropine Mesylate 1 Mg Tablet PO 1 mg DAILY KAREN Administration Clonazepam 0.5 mg 05/25/24 13:00 05/26/24 08:16 Clonazepam 0.5 Mg Tablet PO 0.5 mg BID KAREN Administration Ezetimibe 10 mg 05/26/24 09:00 05/26/24 08:16 Ezetimibe 10 Mg Tablet PO 10 mg DAILY KAREN Administration Ferrous Sulfate 324 mg 05/26/24 09:00 05/26/24 08:16 Ferrous Sulfate 324 Mg Tablet. PO 324 mg DAILY KAREN Administration Folic Acid 1 mg 05/26/24 09:00 05/26/24 08:16 Folic Acid 1 Mg Tablet PO 1 mg DAILY KAREN Administration Omeprazole 20 mg 05/25/24 13:00 05/26/24 06:50 Omeprazole 20 Mg Capsule. PO 20 mg DAILY@0630 KAREN Administration Risperidone 0.5 mg 05/25/24 21:00 05/25/24 22:17 Risperidone 0.5 Mg Tablet PO 0.5 mg BEDTIME KAREN Administration Risperidone 4 mg 05/26/24 09:00 05/26/24 08:17 Risperidone 2 Mg Tablet PO 4 mg DAILY KAREN Administration Thiamine HCl 100 mg 05/25/24 13:00 05/26/24 08:16 Thiamine Hcl 100 Mg Tablet PO 100 mg DAILY KAREN Administration Trazodone HCl 100 mg 05/25/24 21:00 05/25/24 22:17 Trazodone Hcl 100 Mg Tablet PO 100 mg BEDTIME KAREN Administration Discontinued Medications Generic Name Dose Route Start Last Admin Trade Name Eduardoq PRN Reason Stop Dose Admin Benztropine Mesylate 0.5 mg 05/25/24 13:00 05/25/24 14:13 Benztropine Mesylate 0.5 Mg Tablet PO 0.5 mg BID KAREN Administration Risperidone 3 mg 05/25/24 13:00 05/25/24 14:13 Risperidone 3 Mg Tablet PO 3 mg DAILY KAREN Administration Medical Decision Making Medical Decision Making MDM Narrative: 59-year-old male with a history of intellectual disability (patient does not read or write) schizoaffective disorder, hepatitis-C, coronary disease, hypertension, hyperlipidemia, STEMI, COPD, BPH who was brought to emergency department for evaluation of altered mental status. Information was obtained from the patient's brother, Chris Morillo who was reached at following phone number: , mother speaks Mont[place]ian only. The patient was recently hospitalized on the psychiatric service from 05/17/2024 until 05/20/2024 for schizoaffective disorder and confusion. Patient's vital signs did reveal elevated heart rate otherwise was unremarkable. Patient appears to be talking to himself and was confused and kept repeating that he lives on the 1st floor [place] times in response to unrelated questions. Neurologic exam was nonfocal. Differential diagnosis: ?Includes but is not limited to decompensation of his schizoaffective disorder, polysubstance use disorder, alcohol intoxication, anemia, electrolyte abnormalities Following evaluation was ordered: CBC, CMP, urinalysis, troponin, urine drug screen, ethanol level, COVID-19, influenza, RSV, EKG Course: 21:41 My interpretation patient's laboratory evaluation is as follows: CBC was normal. CMP revealed an elevated chloride of 109 and a low CO2 of 19. Glucose was normal at 127. ALT elevated 44. Troponin was detectable but not elevated at 24.7. Alcohol level was below detectable limits. Urine tox screen is pending collection of urine sample. COVID-19, influenza and RSV were negative. At this time I believe that the patient's symptoms are related to his psychiatric disorder and that he is medically cleared for psychiatric evaluation. I will obtain a care team consult. Admission/Observation Consideration of admission/observation: Escalation of care including admission/observation considered Lab Data MDM Lab Attestation statement: I reviewed the patient's lab results. 05/24/24 20:32 05/24/24 20:32 Labs: Lab Results 05/24/24 05/25/24 Range/Units 20:32 06:23 WBC 9.3 (4.8-10.8) X10*3/uL RBC 5.46 (4.60-5.80) X10*6/uL Hgb 15.6 (14.0-18.0) g/dl Hct 46.7 (42.0-52.0) % MCV 85.5 (80.0-98.0) fL MCH 28.6 (27.0-33.0) pg MCHC 33.4 (31.0-36.0) g/dl RDW 15.2 (11.0-16.0) % Plt Count 238 (160-400) X10*3/uL MPV 9.7 (9.4-12.4) fL Immature Gran % (Auto) 0.3 (0.0-0.4) % Neut % (Auto) 76.1 H (45-73) % Lymph % (Auto) 13.8 L (20-40) % [place] % (Auto) 9.1 (2-11) % Eos % (Auto) 0.4 (0-4) % Baso % (Auto) 0.3 (0-2) % Lymph # (Auto) 1.3 (1.2-4.9) X10*3/uL [place] # (Auto) 0.8 (0.1-1.2) X10*3/uL Eos # (Auto) 0.0 (0.0-0.4) X10*3/uL Baso # (Auto) 0.0 (0.0-0.2) X10*3/uL Abs Immat Gran (auto) 0.03 (0.00-0.03) X10*3/uL Absolute Neuts (auto) 7.1 (2.0-8.3) x10*3/uL Absolute Nucleated RBC 0.000 (0.0-0.012) X10*3/uL Nucleated RBC % (auto) 0.0 (0.0-0.2) /100WBC Sodium 142 (135-145) mmol/L Potassium 3.7 (3.3-5.1) mmol/L Chloride 109 H (96-108) mmol/L Carbon Dioxide 19 L (22-29) mmol/L Anion Gap 18 (12-20) BUN 17 H (9-16) mg/dL Creatinine 0.77 (0.5-1.4) mg/dL Estim Creat Clear Calc 98.9 Estimated GFR > 60 Random Glucose 127 H (60-115) mg/dL Calcium 10.1 (8.4-10.2) mg/dL Total Bilirubin 0.4 (0.0-1.0) mg/dL AST 36 (5-37) U/L ALT 44 H (0-40) U/L Alkaline Phosphatase 110 (39-117) U/L Troponin I High Sens 24.7 (<3.5-35.0) ng/L Total Protein 8.9 H (6.5-8.0) g/dL Albumin 4.8 (3.5-5.0) g/dL Urine Color Dark Yellow Urine Appearance Clear Urine pH 5.5 (5.0-9.0) Ur Specific [place] >= 1.030 H (1.005-1.025) Urine Protein 30 (1+) H (Neg-Trace) mg/dL Urine Glucose (UA) Negative (Negative) mg/dL Urine Ketones 15 (Negative) mg/dL Urine Blood Small (1+) H (Negative) Urine Nitrite Negative (Negative) Ur Leukocyte Esterase Negative (Negative) Urine RBC 6-10 H (0-2) /HPF Urine WBC 0-5 (0-5) /HPF Ur Squamous Epith Cells 3-5 (0-2) /HPF Urine Bacteria None Seen (None Seen) Hyaline Casts 3-5 (0-2) /LPF Urine Opiates Screen Not Detected (Not Detect) Ur Buprenorphine Scrn Not Detected (Not Detect) ng/mL Ur Oxycodone Screen Not Detected (Not Detect) ng/mL Urine Methadone Screen Not Detected (Not Detect) ng/mL Urine Fentanyl Screen Not Detected (Not Detect) Ur Barbiturates Screen Not Detected (Not Detect) Ur Phencyclidine Scrn Not Detected (Not Detect) Ur Amphetamines Screen Not Detected (Not Detect) U Benzodiazepines Scrn Not Detected (Not Detect) Urine Cocaine Screen Not Detected (Not Detect) U Marijuana (THC) Screen POSITIVE H (Not Detect) Ethyl Alcohol < 10 mg/dL Influenza Type A (PCR) NEGATIVE (Negative) Influenza Type B (PCR) NEGATIVE (Negative) RSV RNA Qual (PCR) NEGATIVE (Negative) SARS-CoV-2 RNA (RT-PCR) NEGATIVE (Negative) Independent Interpretation I performed an independent interpretation of an: EKG Interpretation: My interpretation of the patient's 12 EKG done at 20:23 hours is as follows: Sinus tachycardia with a rate of 114, normal CT interval, QRS duration QTC interval, Q-waves in lead 2, 3 and AVF with inverted T-waves in lead 3 consistent with old inferior wall myocardial infarction, no ST segment elevation, no ST segment depression, no PACs, no PVCs. Compared to EKG dated 05/15/2024 Q-waves and T-wave abnormalities were old and there was no significant change. Discharge Plan Discharge Clinical Impression: Schizoaffective disorder, Acute confusion Patient Disposition: Still a Patient Prescriptions: No Action atorvastatin 40 mg tablet 40 mg PO BEDTIME Qty: 90 3RF amlodipine 2.5 mg tablet 2.5 mg PO DAILY Qty: 90 3RF ezetimibe 10 mg tablet 10 mg PO DAILY Qty: 90 3RF metoprolol succinate 25 mg tablet extended release 24 hr 25 mg PO DAILY omeprazole 20 mg Capsule,Delayed Release(Dr/Ec) 20 mg PO DAILY@0630 Qty: 30 0RF nicotine (polacrilex) 2 mg Gum 4 mg buccal Q2H PRN (Reason: Nicotine Cravings) 30 Days Qty: 100 0RF benztropine 0.5 mg tablet 0.5 mg PO BID 30 Days Qty: 60 1RF clonazepam 0.5 mg Tablet 0.5 mg PO BID 30 Days Qty: 60 0RF risperidone 3 mg Tablet 3 mg PO DAILY 30 Days Qty: 30 1RF trazodone 100 mg Tablet 100 mg PO BEDTIME 30 Days Qty: 30 1RF mirtazapine 30 mg tablet 30 mg PO BEDTIME 30 Days Qty: 30 1RF risperidone 0.5 mg Tablet 0.5 mg PO BEDTIME 30 Days Qty: 30 1RF aspirin [Aspir-81] 81 mg Tablet,Delayed Release (Dr/Ec) 81 mg PO DAILY albuterol sulfate 90 mcg/actuation Hfa Aerosol Inhaler 2 puff INHALATION Q4H PRN (Reason: Wheezing) ferrous sulfate 325 mg (65 mg iron) tablet,delayed release (DR/EC) 325 mg PO DAILY folic acid 1 mg tablet 1 mg PO DAILY thiamine HCl (vitamin B1) 100 mg tablet 100 mg PO DAILY Print Language: Montserratian
[2024-05-24 21:09] LABS: Alanine Aminotransferase 44 U/L (0-40); Albumin Level 4.8 g/dL (3.5-5.0); Alkaline Phosphatase 110 U/L (39-117); Anion Gap 18 (12-20); Aspartate Amino Transferase 36 U/L (5-37); Bilirubin Total 0.4 mg/dL (0.0-1.0); Blood Urea Nitrogen 17 mg/dL (9-16); Calcium 10.1 mg/dL (8.4-10.2); Carbon Dioxide 19 mmol/L (22-29); Chloride 109 mmol/L (96-108); Creatinine Clr Calc Pharmacy 98.9; Estimated Glomerular Filt Rate > 60; Ethanol < 10 mg/dL; Glucose Random 127 mg/dL (60-115); Potassium 3.7 mmol/L (3.3-5.1); Sodium 142 mmol/L (135-145); Total Protein 8.9 g/dL (6.5-8.0)
[2024-05-24 21:15] LABS: Troponin-I High Sensitivity 24.7 ng/L (<3.5-35.0)
[2024-05-24 21:28] LABS: Influenza A PCR NEGATIVE (Negative); Influenza B PCR NEGATIVE (Negative); Resp Syncy Virus RNA Qual PCR NEGATIVE (Negative); SARS COV2 PCR INHOUSE NEGATIVE (Negative)
--- NOTE | 2024-05-24 23:08 | PC.NURSE ---
shani cath placed at this time per
[2024-05-25 01:57] VITALS: BP 150/80; PULSE 80; RESP 17; TEMP 36.7; O2SAT 96
--- NOTE | 2024-05-25 04:59 | PC.NURSE ---
pt given water and gingerale at this time, tolerated well. awaiting urine sample at this time.
[2024-05-25 06:00] VITALS: BP 117/63; PULSE 67; RESP 14; TEMP 36.4; O2SAT 99
[2024-05-25 06:29] LABS: Appearance Urine Clear; Color Urine Dark Yellow; Glucose Urine UA Negative (Negative); Leukocyte Esterase Urine Negative (Negative); Nitrite Urine Negative (Negative); PH 5.5 (5.0-9.0); Specific Gravity - Urine >= 1.030 (1.005-1.025); UMIC TRIGGER UACC YES; Urine Blood Small (1+) (Negative); Urine Ketones 15 mg/dL (Negative); Urine Protein 30 (1+) mg/dL (Neg-Trace)
--- NOTE | 2024-05-25 06:31 | PC.NURSE ---
pt noted to not produce any urine, pt bladder scanned, greater than 500. aware, pt straight cath per order, 400ml of yellow urine voided. urine sample obtained and sent to lab.
[2024-05-25 06:34] LABS: Bacteria Urine None Seen (None Seen); WBC Urine 0-5 /HPF (0-5)
[2024-05-25 06:41] LABS: Amphetamine Screen Urine Not Detected (Not Detect); Barbiturates, Urine Not Detected (Not Detect); Benzodiazepines Screen Urine Not Detected (Not Detect); Buprenorphine Scr Not Detected (Not Detect); Cannabinoid Screen Urine POSITIVE (Not Detect); Cocaine Screen Urine Not Detected (Not Detect); Fentanyl, urine Not Detected (Not Detect); Methadone Screen, Urine Not Detected (Not Detect); Opiate Screen Urine Not Detected (Not Detect); Oxycodone Screen Urine Not Detected (Not Detect); Phencyclidine Screen Urine Not Detected (Not Detect)
--- NOTE | 2024-05-25 07:05 | PC.NURSE ---
Resumed care of pt at 0700. Pt up out of bed pacing back and forth in hallway. This RN redirected pt back to room. Diet and breakfast tray ordered. Call valdovinos within reach, awaiting CARE team at this time.
[2024-05-25 11:45] VITALS: BP 150/89; PULSE 65; RESP 20; TEMP 37.2; O2SAT 98
--- NOTE | 2024-05-25 12:25 | PHA.MEDREC ---
Pharmacy Consult ? Medication Reconciliation Pharmacy has completed the medication reconciliation. Confirmed medications with discharge packet from 05/22/2024.
--- NOTE | 2024-05-25 13:51 | PC.NURSE ---
Patient continually approaching nurse's station, showing staff birthday card, asking questions in aust[place]ian. Real Estate Marketing Coordinator services call to assist with med administration/ answering patient's questions. Awaiting production team manager arrival at this time.
[2024-05-25 14:12] VITALS: BP 150/89
[2024-05-25] MEDS: amLODIPine Besylate 2.5 MG TABLET PO (14:12)
[2024-05-25] MEDS: Omeprazole 20 MG CAPSULE.DR PO (14:12)
[2024-05-25] MEDS: Thiamine HCL 100 MG TABLET PO (14:13)
[2024-05-25] MEDS: Benztropine Mesylate 0.5 MG TABLET PO (14:13)
[2024-05-25] MEDS: Aspirin Enteric Coated 81 MG TABLET.DR PO (14:13)
[2024-05-25] MEDS: risperiDONE 3 MG TABLET PO (14:13)
[2024-05-25] MEDS: clonazePAM 0.5 MG TABLET PO ×2 (14:13→22:17)
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
--- NOTE | 2024-05-25 16:33 | MHC.CARE ---
Patient evaluated by the CARE Team with psychiatry consultation, disposition determine to be increase in medication and discharge home in the morning. ED provider Lauren rouse
--- NOTE | 2024-05-25 19:46 | PC.NURSE ---
This RN assumed pt care @ 1900. Pt ambulating in common area w/ a steady gait. Plan of care ongoing.
[2024-05-25] MEDS: risperiDONE 0.5 MG TABLET PO (22:17)
[2024-05-25] MEDS: Atorvastatin Calcium 40 MG TABLET PO (22:17)
[2024-05-25] MEDS: traZODone HCL 100 MG TABLET PO (22:17)
--- NOTE | 2024-05-25 22:22 | PC.NURSE ---
Pt medicated per jan. Pt resting in bed quietly. Plan of care ongoing.
[2024-05-25 22:23] VITALS: BP 118/62; PULSE 66; RESP 18; TEMP 36.2; O2SAT 99
--- NOTE | 2024-05-26 04:11 | PC.NURSE ---
Pt ambulates with a steady gait to nurses station. Pt requested and given tooth brush and tooth paste. Pt requested and given food and drink. Plan of care ongoing.
[2024-05-26] MEDS: Omeprazole 20 MG CAPSULE.DR PO (06:50)
--- NOTE | 2024-05-26 06:52 | PC.NURSE ---
Pt medicated per jan. Plan of care ongoing.
[2024-05-26 07:53] VITALS: BP 134/77; PULSE 112; RESP 16; TEMP 36.4; O2SAT 95
--- NOTE | 2024-05-26 07:55 | PC.NURSE ---
Assumed care of patient at 0645, patient appears to be in no apparent distress this am, ambulating around BH pod with steady gait. Patient continually asking for someone who speaks occitan however, when this RN speaks to him in occitan he reports that he doesn't understand any jordanian. Multiple attempts made to communicate effectively with the patient however, patient continue to appear confused. Patient easily redirected into room for breakfast. Continue plan of care for follow up and discharge this am
[2024-05-26] MEDS: Aspirin Enteric Coated 81 MG TABLET.DR PO (08:16)
[2024-05-26] MEDS: Benztropine Mesylate 1 MG TABLET PO (08:16)
[2024-05-26] MEDS: amLODIPine Besylate 2.5 MG TABLET PO (08:16)
[2024-05-26] MEDS: Ezetimibe 10 MG TABLET PO (08:16)
[2024-05-26] MEDS: Ferrous Sulfate 324 MG TABLET.DR PO (08:16)
[2024-05-26] MEDS: Folic Acid 1 MG TABLET PO (08:16)
[2024-05-26] MEDS: Thiamine HCL 100 MG TABLET PO (08:16)
[2024-05-26] MEDS: clonazePAM 0.5 MG TABLET PO (08:16)
[2024-05-26] MEDS: risperiDONE 2 MG TABLET 4 MG PO (08:17)
[2024-05-26 10:16] VITALS: BP 124/74; PULSE 87; RESP 16; TEMP 36.6; O2SAT 97
== END 2024-05-26 10:18 | disposition home or self-care (01) ==
PROVIDERS: Emergency Provider Emergency Medicine Emergency Medical Services
DX: R41.0 Disorientation, unspecified (principal); F25.9 Schizoaffective disorder, unspecified; F81.9 Developmental disorder of scholastic skills, unspecified; I10 Essential (primary) hypertension; J44.9 Chronic obstructive pulmonary disease, unspecified; I25.2 Old myocardial infarction; R00.0 Tachycardia, unspecified; Z79.899 Other long term (current) drug therapy; Z03.818 Encounter for observation for suspected exposure to other biological agents ruled out
CPT/HCPCS: 0241U; 51701; 80053; 80307; 81001; 84484; 85025; 93005; 99285; S9485

== ENCOUNTER → 2024-05-24 20:23 | Outpatient (BNV) | payer MEDICAID, SELFPAY | PROVIDERS: Emergency Provider Emergency Medicine Emergency Medical Services; Visit Provider Internal Medicine Cardiovascular Disease | DX: R00.0 Tachycardia, unspecified (principal); R94.31 Abnormal electrocardiogram [ECG] [EKG]; R41.82 Altered mental status, unspecified | CPT/HCPCS: 93010 ==

== ENCOUNTER → 2024-05-24 20:51 | Outpatient (BNV) | payer OTHER, SELFPAY | PROVIDERS: Emergency Provider Emergency Medicine Emergency Medical Services; Visit Provider Social Worker | DX: F25.9 Schizoaffective disorder, unspecified (principal); F81.9 Developmental disorder of scholastic skills, unspecified | CPT/HCPCS: 99285 ==

== ENCOUNTER 2024-05-29 09:23 | Outpatient (REF) | payer MEDICAID, SELFPAY ==
[2024-05-29 11:39] LABS: Alanine Aminotransferase 31 U/L (0-40); Albumin Level 4.8 g/dL (3.5-5.0); Alkaline Phosphatase 104 U/L (39-117); Anion Gap 14 (12-20); Aspartate Amino Transferase 26 U/L (5-37); Bilirubin Total 0.5 mg/dL (0.0-1.0); Blood Urea Nitrogen 18 mg/dL (9-16); Calcium 10.3 mg/dL (8.4-10.2); Carbon Dioxide 23 mmol/L (22-29); Chloride 108 mmol/L (96-108); Cholesterol 119 mg/dL (<200); Estimated Glomerular Filt Rate > 60; Glucose Random 124 mg/dL (60-115); HDL Cholesterol 36 mg/dL (>40); LDL Cholesterol Calculated 75 mg/dL (<100); Potassium 3.6 mmol/L (3.3-5.1); Sodium 141 mmol/L (135-145); Total Protein 8.7 g/dL (6.5-8.0); Triglycerides 43 mg/dL (<150)
== END 2024-05-29 09:24 | disposition home or self-care (01) ==
LOC: HO.HHCL 09:23
PROVIDERS: Visit Provider Registered Nurse
DX: I10 Essential (primary) hypertension (principal)
CPT/HCPCS: 36415; 80053; 80061

== ENCOUNTER 2024-06-02 15:45 | Inpatient (IN) | payer MEDICAID, OTHER, SELFPAY ==
--- NOTE | ~2024-06-02 | XR_ITS ---
EXAMINATION: XR CHEST CLINICAL INFORMATION: Cough and blood-tinged sputum COMPARISON: 02/18/2023, 06/09/2024 and 06/23/2024 TECHNIQUE: Frontal view of the chest was obtained. FINDINGS: The patient is slightly rotated into a left anterior oblique position. Lungs are well expanded. Old calcified granulomas in left upper lobe. The right hemidiaphragm is not as sharply defined on the current radiograph compared to priors. It is uncertain whether this is due to previously seen mild undulation in the diaphragmatic contour, atelectatic change or a developing lower lobe infiltrate. Cardiac silhouette has normal size and contour. Pulmonary vascular pattern is normal. The visualized bones are intact. XR/XR chest 1V IMPRESSION: The right hemidiaphragm is not as sharply defined on the current radiograph when compared to priors. Possible atelectasis or infiltrate in the right lung base. Consider follow-up with PA and lateral chest radiographs.
--- NOTE | ~2024-06-02 | XR_ITS ---
EXAMINATION: XR CHEST CLINICAL INFORMATION: Delirium COMPARISON: 02/18/2023 TECHNIQUE: PA, lateral, and right and left oblique views of the chest were obtained. FINDINGS: Heart is normal in size. Coronary artery stent is present. There is mild flattening of the hemidiaphragms. No focal infiltrates or pleural effusions XR/XR chest 4 views IMPRESSION: No acute process. Mild hyperinflation.
--- NOTE | ~2024-06-02 | XR_ITS ---
EXAMINATION: XR CHEST CLINICAL INFORMATION: Pain. COMPARISON: 06/09/2023. TECHNIQUE: Frontal view of the chest was obtained. FINDINGS: The lung volumes are low and the patient is mildly rotated. The cardiomediastinal silhouette is stable. There appears to be minimal scarring or atelectasis at the right lung base. The lungs are otherwise clear. The bony structures and soft tissues are unremarkable XR/XR chest 1V IMPRESSION: Low lung volumes. Minimal scarring or atelectasis at the right lung base. No other significant abnormality seen.
--- NOTE | ~2024-06-02 | CT_ITS ---
EXAMINATION: CT HEAD WITHOUT CONTRAST CLINICAL INFORMATION: Altered mental status. COMPARISON: CT head from 08/01/2015. TECHNIQUE: Contiguous axial imaging was performed from the skull base to vertex without intravenous administration of contrast. This CT examination was performed using dose optimization techniques as appropriate, variously including the following: *Automated exposure control. *Adjustment of mA and/or kV according to patient size (this includes techniques or standardized protocols for targeted exams where dose is matched to indication/reason for exam; i.e. extremities or head). *Use of iterative reconstruction technique. DLP: 594 mGy-cm FINDINGS: There is no evidence of acute intracranial hemorrhage or edematous territorial infarction. Fritz-white matter differentiation is preserved. A few foci of hypoattenuation in the periventricular and deep white matter are consistent with mild microangiopathy. The ventricles are normal in morphology and size. No evidence for obstructive hydrocephalus. No abnormal mass effect or midline shift. No extra-axial fluid collections. Calcific atherosclerotic disease of the intracranial internal carotid arteries. No hyperdense vessel sign. No acute soft tissue or osseous abnormalities. Chronic mild deformity of the right nasal bone. Mild mucosal thickening of the paranasal sinuses. The mastoid air cells and middle ear cavities are clear. CT/CT head/brain wo IV con IMPRESSION: 1. No evidence of acute intracranial hemorrhage or edematous territorial infarction. 2. Mild underlying microangiopathy.
[2024-06-02 15:56] VITALS: BP 136/78; PULSE 84; O2SAT 98
[2024-06-02 15:57] VITALS: BP 146/80; PULSE 71; RESP 16; TEMP 37.1; O2SAT 97; BMI 23.8
[2024-06-02 16:02] VITALS: BP 146/80; PULSE 71; RESP 16; TEMP 37.1; O2SAT 97
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
--- NOTE | 2024-06-02 16:35 | ED.PSYCH ---
HPI - Psych General Chief Complaint: Psychiatric Symptoms Stated Complaint: psych emergency, ams 90 days per ems Time Seen by Provider: 06/02/24 16:22 Source: patient and EMS Mode of arrival: EMS Limitations: altered mental status History of Present Illness ED Provider: Dr. Amber Marques HPI Narrative: Patient comes to the emergency room via ambulance. According to EMS, patient's brother called the ambulance because the patient has gradually become more aggressive with the family and the patient is delusional believing that his neighbor has been pulling out his teeth. Here in the emergency room, patient is not sure why he is here, states that it has something to do with his medications. Of note, patient was discharged from the psychiatric unit on 05/20/2024, and was reassessed on the when patient was in the emergency room. Patient denies SI or HI Related Data Home Medications ?Medication ?Instructions ?Recorded ?Confirmed ferrous sulfate 325 mg (65 mg 325 mg PO DAILY 12/06/22 06/02/24 iron) tablet,delayed release folic acid 1 mg tablet 1 mg PO DAILY 05/16/23 06/02/24 thiamine HCl (vitamin B1) 100 mg 100 mg PO DAILY 05/16/23 06/02/24 tablet metoprolol succinate 25 mg 25 mg PO DAILY 11/13/23 06/02/24 tablet,extended release 24 hr albuterol sulfate 90 mcg/actuation 2 puff inhalation Q4H PRN Wheezing 05/25/24 06/02/24 aerosol inhaler aspirin 81 mg tablet,delayed 81 mg PO DAILY 05/25/24 06/02/24 release Previous Rx's ?Medication ?Instructions ?Recorded omeprazole 20 mg capsule,delayed 20 mg PO DAILY@0630 #30 caps 10/31/22 release atorvastatin 40 mg tablet 40 mg PO BEDTIME #90 tabs 12/17/23 amlodipine 2.5 mg tablet 2.5 mg PO DAILY #90 tabs 01/16/24 ezetimibe 10 mg tablet 10 mg PO DAILY #90 tabs 04/29/24 benztropine 0.5 mg tablet 0.5 mg PO BID 30 days #60 tabs 05/20/24 clonazepam 0.5 mg tablet 0.5 mg PO BID 30 days #60 tabs 05/20/24 mirtazapine 30 mg tablet 30 mg PO BEDTIME depressive 05/20/24 disorder 30 days #30 tabs nicotine (polacrilex) 2 mg gum 4 mg buccal Q2H PRN Nicotine 05/20/24 Cravings 30 days #100 ea risperidone 0.5 mg tablet 0.5 mg PO BEDTIME 30 days #30 tabs 05/20/24 risperidone 3 mg tablet 3 mg PO DAILY 30 days #30 tabs 05/20/24 trazodone 100 mg tablet 100 mg PO BEDTIME 30 days #30 tabs 05/20/24 Allergies Allergy/AdvReac Type Severity Reaction Status Date / Time acetaminophen Allergy Unknown PANADOL = Verified 06/02/24 16:01 ACETAMINOPHEN SHELLFISH Allergy Mild PATIENT Uncoded 06/02/24 16:01 REPORTS BURNING SENSATION THROUGHOUT OPIATES Allergy Unknown BECAME Uncoded 06/02/24 16:01 ADDICTED PANADOL Allergy Unknown UNKNOWN Uncoded 06/02/24 16:01 Review of Systems Review of Systems: Constitutional : No Weight loss, No Fever, No Chills, No Night Sweats, No Fatigue, No Malaise ENT/Mouth : No Hearing loss, No Ear Pain, No Nasal Congestion, No Sinus Pain, No Hoarseness, No sore throat, No Rhinorrhea, No Swallowing Difficulty Eyes: No Eye Pain, No Swelling, No Redness, No Foreign Body, No Discharge, No Vision Changes Cardiovascular : No Chest Pain, No SOB, No Dyspnea on Exertion, No Orthopnea, No Edema, No Palpitations Respiratory : No Cough, No Sputum, No Wheezing, No Smoke Exposure, No Dyspnea Gastrointestinal : No Nausea, No Vomiting, No Diarrhea, No Constipation, No abdominal Pain, No Hematochezia, No Melena Genitourinary : no irregular bleeding, No Dysuria, No Urinary Frequency, No Hematuria, No Urinary Incontinence, No Urgency, No Flank Pain, No Urinary Flow Changes, No Hesitancy Musculoskeletal : No joint pain, No Myalgias, No Joint Swelling Skin : No Skin Lesions, No rash Neuro : No Weakness, No Numbness, No Paresthesias, No Loss of Consciousness, No Dizziness, No Headache Psych : No Anxiety/Panic, No Depression, No SI/HI/AH/VH, No Social Issues, per family: Increased aggression and delusions Heme/Lymph: No Bruising, No Bleeding,No Lymphadenopathy Endocrine : No Polyuria, No Polydipsia, No Temperature Intolerance PMFSH Past Medical History Medical History Schizoaffective disorder History of hepatitis C CAD (coronary artery disease) (~2019) Chest pain Palpitations Hypertension Hyperlipidemia History of ST elevation myocardial infarction (STEMI) (~2019) COPD (chronic obstructive pulmonary disease) Cough Nicotine dependence, cigarettes, uncomplicated Tubular adenoma BPH (benign prostatic hyperplasia) Surgical History History of heart artery stent (~2019) History of colonoscopy (~2021) History of esophagogastroduodenoscopy (EGD) (~2021) History of right inguinal hernia repair (~2003) History of left inguinal hernia repair (~2007) Family History Family History Father Edema Mother Developmental delay Social History Social History Household Members: Family Housing: Apartment Do you presently have visiting nurse or other home services: Yes Unable to assess alcohol history related to: Unable to respond Alcohol intake: never Patient Tobacco Use Status: Current everyday Tobacco user Tobacco use type: Cigarette Cigarette Packs Per Day: 1 Cigarettes Per Day: 20.0 Years Smoked: onset 12yo, 1ppd x 44yrs, 40pyh - e-Cigarette/Vaping Use: Never Used Second Hand Smoke Exposure: No Use of substances other than those prescribed or required for medical reasons: Unable to respond Substance Use Type: Marijuana Advance Directives: No Advance Directives Information Provided: No Do you have a plan to hurt others: No Plan service: No Current occupational status: disabled Sexual orientation: Straight/Heterosexual Physical Exam Vital Signs: Vital Signs: Last Vital Signs Temp 98.7 F 06/02/24 16:02 Pulse 71 06/02/24 16:02 Resp 16 06/02/24 16:02 BP 146/80 H 06/02/24 16:02 Pulse Ox 97 06/02/24 16:02 O2 Del Method Room Air 06/02/24 16:02 BMI result Body Mass Index 23.8 Const: Other: Appearance: Alert. Oriented X3. No acute distress. Eyes: Pupils equal, round and reactive to light. ENT: Pharynx normal. Neck: Normal inspection. Neck supple. No lymph nodes noted. No crepitus CVS: Normal heart rate and rhythm. Pulses normal. Normal S1 and S2 Respiratory: No respiratory distress. Breath sounds normal. No Wheezing. No rales Abdomen: Soft and nontender. No rigidity. No distention. Skin: Skin warm and dry. Normal skin color. Normal skin turgor. Extremities: No lower extremity edema. No Lacerations. No Rash Neuro: Oriented X 3. No motor deficit. No sensory deficit. Moving all extremities. No slurred speech. CN 2 through 12 grossly intact Psych: calm, cooperative, seems a bit confused, sure why he is here Course Course Course Narrative: -all of patient's labs pending -care team consult -physician observation started at 16:35 Medical Decision Making Medical Decision Making [facility] Narrative: -my interpretation of labs, normal hematology, chemistry shows a potassium of 3.0, being repleted p.o., ETOH negative, urine toxicology pending Differential Diagnosis Differential Diagnoses: The differential diagnosis associated with the presentation includes (Delusional, medication compliance, polysubstance abuse) Admission/Observation Consideration of admission/observation: Escalation of care including admission/observation considered (Patient is under physician observation waiting for the care team for evaluation) Lab Data 06/02/24 16:41 06/02/24 16:41 Labs: Lab Results 06/02/24 Range/Units 16:41 WBC 10.0 (4.8-10.8) X10*3/uL RBC 5.18 (4.60-5.80) X10*6/uL Hgb 14.9 (14.0-18.0) g/dl Hct 44.3 (42.0-52.0) % MCV 85.5 (80.0-98.0) fL MCH 28.8 (27.0-33.0) pg MCHC 33.6 (31.0-36.0) g/dl RDW 14.3 (11.0-16.0) % Plt Count 221 (160-400) X10*3/uL MPV 10.6 (9.4-12.4) fL Immature Gran % (Auto) 0.3 (0.0-0.4) % Neut % (Auto) 75.7 H (45-73) % Lymph % (Auto) 14.9 L (20-40) % [place] % (Auto) 8.1 (2-11) % Eos % (Auto) 0.7 (0-4) % Baso % (Auto) 0.3 (0-2) % Lymph # (Auto) 1.5 (1.2-4.9) X10*3/uL [place] # (Auto) 0.8 (0.1-1.2) X10*3/uL Eos # (Auto) 0.1 (0.0-0.4) X10*3/uL Baso # (Auto) 0.0 (0.0-0.2) X10*3/uL Abs Immat Gran (auto) 0.03 (0.00-0.03) X10*3/uL Absolute Neuts (auto) 7.6 (2.0-8.3) x10*3/uL Absolute Nucleated RBC 0.000 (0.0-0.012) X10*3/uL Nucleated RBC % (auto) 0.0 (0.0-0.2) /100WBC Sodium 139 (135-145) mmol/L Potassium 3.0 L (3.3-5.1) mmol/L Chloride 105 (96-108) mmol/L Carbon Dioxide 22 (22-29) mmol/L Anion Gap 15 (12-20) BUN 14 (9-16) mg/dL Creatinine 0.72 (0.5-1.4) mg/dL Estim Creat Clear Calc 87.4 Estimated GFR > 60 Random Glucose 155 H (60-115) mg/dL Calcium 9.7 (8.4-10.2) mg/dL Total Bilirubin 0.4 (0.0-1.0) mg/dL AST 37 (5-37) U/L ALT 34 (0-40) U/L Alkaline Phosphatase 108 (39-117) U/L Total Protein 8.3 H (6.5-8.0) g/dL Albumin 4.5 (3.5-5.0) g/dL Ethyl Alcohol < 10 mg/dL Discharge Plan Discharge Clinical Impression: Delusional disorder, Acute hypokalemia Patient Disposition: Still a Patient Prescriptions: No Action atorvastatin 40 mg tablet 40 mg PO BEDTIME Qty: 90 3RF amlodipine 2.5 mg tablet 2.5 mg PO DAILY Qty: 90 3RF ezetimibe 10 mg tablet 10 mg PO DAILY Qty: 90 3RF metoprolol succinate 25 mg tablet extended release 24 hr 25 mg PO DAILY omeprazole 20 mg Capsule,Delayed Release(Dr/Ec) 20 mg PO DAILY@0630 Qty: 30 0RF nicotine (polacrilex) 2 mg Gum 4 mg buccal Q2H PRN (Reason: Nicotine Cravings) 30 Days Qty: 100 0RF benztropine 0.5 mg tablet 0.5 mg PO BID 30 Days Qty: 60 1RF clonazepam 0.5 mg Tablet 0.5 mg PO BID 30 Days Qty: 60 0RF risperidone 3 mg Tablet 3 mg PO DAILY 30 Days Qty: 30 1RF trazodone 100 mg Tablet 100 mg PO BEDTIME 30 Days Qty: 30 1RF mirtazapine 30 mg tablet 30 mg PO BEDTIME 30 Days Qty: 30 1RF risperidone 0.5 mg Tablet 0.5 mg PO BEDTIME 30 Days Qty: 30 1RF aspirin [Aspir-81] 81 mg Tablet,Delayed Release (Dr/Ec) 81 mg PO DAILY albuterol sulfate 90 mcg/actuation Hfa Aerosol Inhaler 2 puff INHALATION Q4H PRN (Reason: Wheezing) ferrous sulfate 325 mg (65 mg iron) tablet,delayed release (DR/EC) 325 mg PO DAILY folic acid 1 mg tablet 1 mg PO DAILY thiamine HCl (vitamin B1) 100 mg tablet 100 mg PO DAILY Interventions: [place]-Suicide Risk Severity Scale Last Done: 06/02/24 16:01 Print Language: Irish
[2024-06-02 16:45] LABS: MANUAL DIFF FLAG NO
[2024-06-02 16:46] LABS: Basophils Percent Auto 0.3 % (0-2); Eosinophils Absolute Auto 0.1 X10*3/uL (0.0-0.4); Eosinophils Percent Auto 0.7 % (0-4); Hematocrit 44.3 % (42.0-52.0); Hemoglobin 14.9 g/dl (14.0-18.0); Imm Gran Abs Auto 0.03 X10*3/uL (0.00-0.03); Imm Gran Pct Auto 0.3 % (0.0-0.4); Lymphocytes Absolute Auto 1.5 X10*3/uL (1.2-4.9); Lymphocytes Percent Auto 14.9 % (20-40); Mean Corpuscular HGB Conc 33.6 g/dl (31.0-36.0); Mean Corpuscular Hemoglobin 28.8 pg (27.0-33.0); Mean Corpuscular Volume 85.5 fL (80.0-98.0); Mean Platelet Volume 10.6 fL (9.4-12.4); Monocytes Absolute Auto 0.8 X10*3/uL (0.1-1.2); Monocytes Percent Auto 8.1 % (2-11); Neutrophils Absolute Auto 7.6 x10*3/uL (2.0-8.3); Neutrophils Percent Auto 75.7 % (45-73); Platelet Count 221 X10*3/uL (160-400); Red Blood Count 5.18 X10*6/uL (4.60-5.80); Red Cell Distribution Width 14.3 % (11.0-16.0)
[2024-06-02 17:02] LABS: Alanine Aminotransferase 34 U/L (0-40); Albumin Level 4.5 g/dL (3.5-5.0); Alkaline Phosphatase 108 U/L (39-117); Anion Gap 15 (12-20); Aspartate Amino Transferase 37 U/L (5-37); Bilirubin Total 0.4 mg/dL (0.0-1.0); Blood Urea Nitrogen 14 mg/dL (9-16); Calcium 9.7 mg/dL (8.4-10.2); Carbon Dioxide 22 mmol/L (22-29); Chloride 105 mmol/L (96-108); Creatinine Clr Calc Pharmacy 87.4; Estimated Glomerular Filt Rate > 60; Ethanol < 10 mg/dL; Glucose Random 155 mg/dL (60-115); Sodium 139 mmol/L (135-145); Total Protein 8.3 g/dL (6.5-8.0)
[2024-06-02] MEDS: Potassium Chloride Packet 20 MEQ PACKET 60 MEQ PO (18:43)
--- NOTE | 2024-06-03 | ECG_ITS ---
Test Reason : check qt interval Blood Pressure : / mmHG Vent. Rate : 084 BPM Atrial Rate : 084 BPM P-R Int : 142 ms QRS Dur : 084 ms QT Int : 390 ms P-R-T Axes : 035 050 048 degrees QTc Int : 460 ms Normal sinus rhythm Possible Inferior infarct (cited on or before 21-APR-2020) Abnormal ECG When compared with ECG of 24-MAY-2024 20:23, T wave inversion no longer evident in Inferior leads T wave amplitude has increased in Anterior leads Referred By: Generic ED Physician Electronically Signed By:LUIS ANTONIO VAUGHN MD
[2024-06-03] MEDS: Atorvastatin Calcium 40 MG TABLET PO ×2 (00:48→19:40)
[2024-06-03] MEDS: clonazePAM 0.5 MG TABLET PO ×3 (00:48→19:40)
[2024-06-03] MEDS: risperiDONE 0.5 MG TABLET PO ×2 (04:59→19:39)
[2024-06-03] MEDS: Omeprazole 20 MG CAPSULE.DR PO (04:59)
[2024-06-03 05:23] LABS: Appearance Urine Clear; Color Urine Yellow; Glucose Urine UA Negative (Negative); Leukocyte Esterase Urine Trace (Negative); Nitrite Urine Negative (Negative); Specific Gravity - Urine 1.015 (1.005-1.025); UMIC TRIGGER UACC YES; Urine Blood Trace (Negative); Urine Ketones Negative (Negative); Urine Protein Negative (Neg-Trace)
[2024-06-03 05:26] LABS: Bacteria Urine None Seen (None Seen); Hyaline Casts Urine 0-2 /LPF (0-2); Squamous Epithelial Cell Urine 0-2 /HPF (0-2); UACC Culture Trigger YES
[2024-06-03 05:36] LABS: Amphetamine Screen Urine Not Detected (Not Detect); Barbiturates, Urine Not Detected (Not Detect); Benzodiazepines Screen Urine Not Detected (Not Detect); Buprenorphine Scr Not Detected (Not Detect); Cannabinoid Screen Urine Not Detected (Not Detect); Cocaine Screen Urine Not Detected (Not Detect); Fentanyl, urine Not Detected (Not Detect); Methadone Screen, Urine Not Detected (Not Detect); Opiate Screen Urine Not Detected (Not Detect); Oxycodone Screen Urine Not Detected (Not Detect); Phencyclidine Screen Urine Not Detected (Not Detect)
[2024-06-03 06:49] VITALS: RESP 16
--- NOTE | 2024-06-03 07:06 | PC.NURSE ---
Assumed care of patient at 0645. Patient is observed to be sleeping in their bed. No distress observed and breathing is even and unlabored.
[2024-06-03] MEDS: amLODIPine Besylate 2.5 MG TABLET PO (08:08)
[2024-06-03] MEDS: risperiDONE 3 MG TABLET PO (08:08)
[2024-06-03] MEDS: Ezetimibe 10 MG TABLET PO (08:08)
[2024-06-03] MEDS: Ferrous Sulfate 324 MG TABLET.DR PO (08:08)
[2024-06-03] MEDS: Thiamine HCL 100 MG TABLET PO (08:09)
[2024-06-03] MEDS: Folic Acid 1 MG TABLET PO (08:09)
[2024-06-03] MEDS: Metoprolol Succinate ER 25 MG TAB.ER.24H PO (08:09)
[2024-06-03] MEDS: Benztropine Mesylate 0.5 MG TABLET PO ×2 (08:09→19:39)
--- NOTE | 2024-06-03 11:03 | MHC.CARE ---
CARE Team received a call from Ilene from [facility] ([phone]) that Pt has been intermittently attending the day program. She reported that Pt attended the program earlier in the day and did not note any acute concerns related to paranoia or delusions.
[2024-06-03] MEDS: LORazepam 1 MG TABLET PO (14:16)
[2024-06-03 14:20] LABS: Anion Gap 15 (12-20); Blood Urea Nitrogen 8 mg/dL (9-16); Calcium 9.4 mg/dL (8.4-10.2); Carbon Dioxide 22 mmol/L (22-29); Chloride 104 mmol/L (96-108); Creatinine Clr Calc Pharmacy 92.5; Estimated Glomerular Filt Rate > 60; Glucose Random 138 mg/dL (60-115); Potassium 3.6 mmol/L (3.3-5.1); Sodium 137 mmol/L (135-145)
[2024-06-03 16:00] VITALS: BP 122/76; PULSE 71; RESP 16; TEMP 36.8; O2SAT 97
[2024-06-03 16:48] VITALS: BMI 29.6
[2024-06-03] MEDS: Albuterol Sulfate 90 MCG 8 GM INHALER 2 PUFF INHALE (17:15)
[2024-06-03] MEDS: hydrOXYzine HCL 25 MG TABLET PO (17:15)
--- NOTE | 2024-06-03 18:50 | PC.ADMIT ---
Pt is a 59-year-old, Vietnamese speaking male admitted to at 1555 after family called EMS. Pt was BIBA due to increased paranoia, confusion, delusional thoughts, and recent verbal threats towards neighbors. Pt was recently discharged from on 05/22/2024. Upon arrival to unit pt presented pleasant but confused. Pt offered mostly nonsensical responses, and was not able to cooperate fully in the admission process. Pt stated he was at the hospital ?because I came to see my kids.? Pt focused on discharging home so he could see his children. Pt denied any need for admission. Pt stated ?I take my medication.? Pt denied SI/HI/AVH. Per Crisis report, pt resides in stable housing with his elderly mother. Per family, since pt discharged home he had become increasingly paranoid, delusional, argumentative and threatening. Family reported this behavior is mostly directed towards neighbors and visiting nurse. Upon pt request, pt?s brother Chris was called after pt arrived to unit to inform him of pt?s admission. Due to limited Vietnamese, his brother Chris included his son aVn on the call. Per Van, since discharge, [place] had reportedly been handing out his medication to people on the streets. Pt has a diagnosis of schizoaffective disorder, as well as unspecified intellectual disability. Per Crisis report, pt also has an active [employer] order and a visiting nurse.?
[2024-06-03] MEDS: Mirtazapine 30 MG TABLET PO (19:39)
[2024-06-03] MEDS: traZODone HCL 100 MG TABLET PO (19:39)
[2024-06-03 20:00] VITALS: BP 128/74; PULSE 94; RESP 18; TEMP 36.8; O2SAT 98
[2024-06-04] MEDS: Omeprazole 20 MG CAPSULE.DR PO (06:15)
[2024-06-04 08:30] VITALS: BP 125/59; PULSE 95; RESP 16; TEMP 37; O2SAT 99
[2024-06-04 08:40] VITALS: BP 125/62
[2024-06-04] MEDS: Benztropine Mesylate 0.5 MG TABLET PO ×2 (08:59→20:39)
[2024-06-04] MEDS: Thiamine HCL 100 MG TABLET PO (08:59)
[2024-06-04] MEDS: Folic Acid 1 MG TABLET PO (08:59)
[2024-06-04] MEDS: Aspirin Enteric Coated 81 MG TABLET.DR PO (08:59)
[2024-06-04] MEDS: amLODIPine Besylate 2.5 MG TABLET PO (08:59)
[2024-06-04] MEDS: Metoprolol Succinate ER 25 MG TAB.ER.24H PO (08:59)
[2024-06-04] MEDS: Ezetimibe 10 MG TABLET PO (08:59)
[2024-06-04] MEDS: Ferrous Sulfate 324 MG TABLET.DR PO (08:59)
[2024-06-04] MEDS: risperiDONE 3 MG TABLET PO (09:00)
[2024-06-04] MEDS: clonazePAM 0.5 MG TABLET PO ×2 (09:00→20:39)
--- NOTE | 2024-06-04 10:09 | P.HPPS_ITS ---
HPI Date of Service: 06/04/24 Chief Complaint: Dysregulated Sources of Information: patient interviewed, chart reviewed and crisis/core team assessment reviewed HPI Subjective Notes: Conditional Voluntary Narrative: Patient 59 yr old Upper Sorbian-speaking male with schizoaffective disorder, cognitive delay, who lives with his mother, recently discharged from on 05/20/2024 who presents via family for increased paranoia, anger and confusion. At last admission there was the thought that patient was not taking all of his medications, since the bulk of his Risperdal was prescribed at bedtime and the VNA only came in the morning. During this last admission, Risperdal changed so that he was taking the bulk of it in the morning and with VNA, seems he is taking his medications. Despite this, family reports that his behaviors are worsening. On the unit he is friendly and calm; he is confused saying he wants to go see his children, caring a pillow in his arms and calling it his baby. Past Psychiatric History: INpt: multiple in the past. OP: Dr. Jordan Lee Past med trials: risperidone No riley nor guardianship. Medical Evaluation Reviewed: Yes [facility] Medical History Schizoaffective disorder History of hepatitis C CAD (coronary artery disease) (~2019) Chest pain Palpitations Hypertension Hyperlipidemia History of ST elevation myocardial infarction (STEMI) (~2019) COPD (chronic obstructive pulmonary disease) Cough Nicotine dependence, cigarettes, uncomplicated Tubular adenoma BPH (benign prostatic hyperplasia) Surgical History History of heart artery stent (~2019) History of colonoscopy (~2021) History of esophagogastroduodenoscopy (EGD) (~2021) History of right inguinal hernia repair (~2003) History of left inguinal hernia repair (~2007) Family History: Mother has dementia. Social History: Lives with mother. Mother has dementia. Has VNA. Brother helps care for him and mother. Has a guardian. Substance History: UDS negative Trauma History: Positive trauma history per CARE team report. Diagnostics Vital Signs (24Hr): Vital Signs - 24 hr 06/03/24 16:00 06/03/24 20:00 06/04/24 08:30 Temperature 98.3 F 98.2 F 98.6 F Pulse Rate 71 94 95 Respiratory Rate 16 18 16 Blood Pressure 122/76 128/74 125/59 L Pulse Oximetry 97 98 99 Oxygen Delivery Method Room Air Room Air Room Air 06/04/24 08:40 Temperature Pulse Rate Respiratory Rate Blood Pressure 125/62 Pulse Oximetry Oxygen Delivery Method BMI result Body Mass Index 29.6 Labs 06/02/24 16:41 06/03/24 13:51 Labs: Laboratory Results - last 48 hr 06/02/24 06/03/24 06/03/24 16:41 05:06 13:51 WBC 10.0 RBC 5.18 Hgb 14.9 Hct 44.3 MCV 85.5 MCH 28.8 MCHC 33.6 RDW 14.3 Plt Count 221 MPV 10.6 Immature Gran % (Auto) 0.3 Neut % (Auto) 75.7 H Lymph % (Auto) 14.9 L [place] % (Auto) 8.1 Eos % (Auto) 0.7 Baso % (Auto) 0.3 Lymph # (Auto) 1.5 [place] # (Auto) 0.8 Eos # (Auto) 0.1 Baso # (Auto) 0.0 Abs Immat Gran (auto) 0.03 Absolute Neuts (auto) 7.6 Absolute Nucleated RBC 0.000 Nucleated RBC % (auto) 0.0 Sodium 139 137 Potassium 3.0 L 3.6 Chloride 105 104 Carbon Dioxide 22 22 Anion Gap 15 15 BUN 14 8 L Creatinine 0.72 0.68 Estim Creat Clear Calc 87.4 92.5 Estimated GFR > 60 > 60 Random Glucose 155 H 138 H Calcium 9.7 9.4 Total Bilirubin 0.4 AST 37 ALT 34 Alkaline Phosphatase 108 Total Protein 8.3 H Albumin 4.5 Urine Color Yellow Urine Appearance Clear Urine pH 6.0 Ur Specific [place] 1.015 Urine Protein Negative Urine Glucose (UA) Negative Urine Ketones Negative Urine Blood Trace H Urine Nitrite Negative Ur Leukocyte Esterase Trace H Urine RBC 3-5 H Urine WBC 6-10 H Ur Squamous Epith Cells 0-2 Urine Bacteria None Seen Hyaline Casts 0-2 Urine Opiates Screen Not Detected Ur Buprenorphine Scrn Not Detected Ur Oxycodone Screen Not Detected Urine Methadone Screen Not Detected Urine Fentanyl Screen Not Detected Ur Barbiturates Screen Not Detected Ur Phencyclidine Scrn Not Detected Ur Amphetamines Screen Not Detected U Benzodiazepines Scrn Not Detected Urine Cocaine Screen Not Detected U Marijuana (THC) Screen Not Detected Ethyl Alcohol < 10 Meds/Allergies Meds Home Medications ?Medication ?Instructions ?Recorded ?Confirmed ?Type ferrous sulfate 325 mg (65 mg 325 mg PO DAILY 12/06/22 06/03/24 History iron) tablet,delayed release folic acid 1 mg tablet 1 mg PO DAILY 05/16/23 06/03/24 History thiamine HCl (vitamin B1) 100 mg 100 mg PO DAILY 05/16/23 06/03/24 History tablet metoprolol succinate 25 mg 25 mg PO DAILY 11/13/23 06/03/24 History tablet,extended release 24 hr albuterol sulfate 90 mcg/actuation 2 puff inhalation Q4H PRN Wheezing 05/25/24 06/02/24 History aerosol inhaler aspirin 81 mg tablet,delayed 81 mg PO DAILY 05/25/24 06/03/24 History release Allergies Allergies Allergy/AdvReac Type Severity Reaction Status Date / Time acetaminophen Allergy Unknown PANADOL = Verified 06/02/24 16:01 ACETAMINOPHEN SHELLFISH Allergy Mild PATIENT Uncoded 06/02/24 16:01 REPORTS BURNING SENSATION THROUGHOUT OPIATES Allergy Unknown BECAME Uncoded 06/02/24 16:01 ADDICTED PANADOL Allergy Unknown UNKNOWN Uncoded 06/02/24 16:01 Mental Status Exam Mental Status Exam Narrative: Pt is alert and oriented; behavior is cooperative, friendly and calm, but also disorganized; patient is not in distress; dressed in casual attire with adequate hygiene; mood is described as good and affect congruent; eye contact appropriate; Speech is normal rate, volume and prosody and not pressured; some psychomotor agitation present as he keeps self-presenting; thought process goal directed, but also tangential; Thought content is on various things such as his kids, some delusional thoughts; denies any SI/HI. Denies AVH; Patients insight and judgment impaired. Assessment & Plan Assessment & Plan (1) Schizoaffective disorder: Status: Acute Qualifiers: Schizoaffective disorder type: unspecified Qualified Code(s): F25.9 - Schizoaffective disorder, unspecified Code(s): F25.9 - Schizoaffective disorder, unspecified (2) Intellectual delay: Status: Acute Code(s): F81.9 - Developmental disorder of scholastic skills, unspecified (3) CAD (coronary artery disease): Status: Acute Code(s): I25.10 - Atherosclerotic heart disease of [place] coronary artery without angina pectoris Plan Patient 59 yr old Upper Sorbian-speaking male with schizoaffective disorder, cognitive delay, who lives with his mother, recently discharged from on 05/20/2024 who presents via family for increased paranoia, anger and confusion. At last admission there was the thought that patient was not taking all of his medications, since the bulk of his Risperdal was prescribed at bedtime and the VNA only came in the morning. During this last admission, Risperdal changed so that he was taking the bulk of it in the morning and with VNA, seems he is taking his medications. Despite this, family reports that his behaviors are worsening. On the unit he is friendly and calm; he is confused saying he wants to go see his children, caring a pillow in his arms and calling it his baby. Formulation/clinical reasoning: It is not clear what is causing decline given that he is most likely taking his medications regularly. Some speculation that he might be abusing substance when out and about in neighborhood however UDS is negative. Setting up family meeting to discuss. PLAN: CV q15 min continue home med regimen for now; will re-assess if changes need to be made once get more collateral later in evening pt complained of right sided chest pain; vitals WNL and pt not in any distress but given hx for CAD ordered EKG and trop Patient educated on: diagnosis and medical condition Informed Consent: does not understand and further education needed Reason for continued inpatient stay Substantial Risk for: inability to function Statement Statement: I have reviewed the history and physical and performed a pertinent examination on my patient. No changes have occurred unless specified. If the History and Physical was not performed prior to admission, the Hospitalist's service will be consulted for completing the admission physical. Time Spent With Patient Time: Total time managing care of this patient today ____ minutes.
[2024-06-04] MEDS: Artificial Tears 15 ML DROPS 1 DROP EYE-BOTH (13:57)
[2024-06-04] MEDS: Albuterol Sulfate 90 MCG 8 GM INHALER 2 PUFF INHALE ×2 (14:20→19:07)
[2024-06-04 15:08] VITALS: BMI 29.5
[2024-06-04] MEDS: hydrOXYzine HCL 25 MG TABLET PO (17:08)
[2024-06-04 19:10] VITALS: BP 125/76; PULSE 99; RESP 16; TEMP 36.8; O2SAT 98
--- NOTE | 2024-06-04 19:11 | ECG_ITS ---
Test Reason : Chest pain Blood Pressure : / mmHG Vent. Rate : 086 BPM Atrial Rate : 086 BPM P-R Int : 136 ms QRS Dur : 080 ms QT Int : 340 ms P-R-T Axes : 040 054 049 degrees QTc Int : 406 ms Normal sinus rhythm Minimal voltage criteria for LVH, may be normal variant ( Sokolow-Fisher ) Possible Lateral infarct , age undetermined Inferior infarct (cited on or before 21-APR-2020) Abnormal ECG When compared with ECG of 03-JUN-2024 08:33, No significant change was found Referred By: Jaiden Pollack Electronically Signed By:LUIS ANTONIO VAUGHN MD
--- NOTE | 2024-06-04 19:19 | PC.NURSE ---
Approximately 1910 pt c/o left sided chest pain, tender to touch. VSS and documented. Pt talkative and ambulating on unit. Provider made aware. Stat EKG and labs ordered. Nursing electronics processing supervisor notified of need for stat EKG.
[2024-06-04 20:00] VITALS: BP 125/76; PULSE 99; RESP 20; TEMP 36; O2SAT 98
[2024-06-04] MEDS: risperiDONE 0.5 MG TABLET PO (20:39)
[2024-06-04] MEDS: Mirtazapine 30 MG TABLET PO (20:39)
[2024-06-04] MEDS: traZODone HCL 100 MG TABLET PO (20:39)
[2024-06-04] MEDS: Atorvastatin Calcium 40 MG TABLET PO (20:39)
[2024-06-04 22:15] LABS: Troponin-I High Sensitivity 7.3 ng/L (<3.5-35.0)
--- NOTE | 2024-06-05 | ECG_ITS ---
Test Reason : chest pain Blood Pressure : / mmHG Vent. Rate : 080 BPM Atrial Rate : 080 BPM P-R Int : 136 ms QRS Dur : 088 ms QT Int : 390 ms P-R-T Axes : 052 054 053 degrees QTc Int : 449 ms Normal sinus rhythm Possible Inferior infarct (cited on or before 21-APR-2020) Abnormal ECG When compared with ECG of 04-JUN-2024 20:03, No significant change was found Referred By: Deedee Tucker Electronically Signed By:LUIS ANTONIO VAUGHN MD
[2024-06-05] MEDS: hydrOXYzine HCL 25 MG TABLET PO ×3 (05:27→18:50)
[2024-06-05] MEDS: Omeprazole 20 MG CAPSULE.DR PO (05:30)
[2024-06-05 08:00] VITALS: BP 121/64; PULSE 90; RESP 18; TEMP 37; O2SAT 96
[2024-06-05] MEDS: Metoprolol Succinate ER 25 MG TAB.ER.24H PO (09:32)
[2024-06-05] MEDS: Thiamine HCL 100 MG TABLET PO (09:32)
[2024-06-05] MEDS: Benztropine Mesylate 0.5 MG TABLET PO ×2 (09:33→21:10)
[2024-06-05] MEDS: amLODIPine Besylate 2.5 MG TABLET PO (09:33)
[2024-06-05] MEDS: clonazePAM 0.5 MG TABLET PO ×2 (09:33→21:11)
[2024-06-05] MEDS: Aspirin Enteric Coated 81 MG TABLET.DR PO (09:33)
[2024-06-05] MEDS: risperiDONE 3 MG TABLET PO (09:33)
[2024-06-05] MEDS: Ferrous Sulfate 324 MG TABLET.DR PO (09:33)
[2024-06-05] MEDS: Ezetimibe 10 MG TABLET PO (09:33)
[2024-06-05] MEDS: Folic Acid 1 MG TABLET PO (09:33)
--- NOTE | 2024-06-05 09:40 | P.PNPSI_ITS ---
Subjective Subjective Date of Service: 06/05/24 Reason For Visit: Dysregulated Interim History: Met with patient; discussed with team; seen with official court interpreter Patient denies any AH to sba underwriter. Denies any SI or HI and says I never look for problems... I am never aggressive... I am good... Although he denies AH, patient says there is too much noise on the unit, and that people are touching his face. Earlier he had told another staff that he was having AH to hurt himself but that he was able to ignore. Patient denies any current drug use; he adds that he used to live on the streets but now he goes to [facility]. Manager Maintenance asked about why he had been carrying a pillow around calling it his baby; patient did not really answer but said that he has a son and a granddaughter and that his is . Patient said he wanted to go home but then agreed to wait for meeting with outpatient staff this next Saturday. Mental Status Exam Mental Status Exam Narrative: Pt is alert and oriented; behavior is cooperative, overly friendly, also somewhat intrusive and asking to see sba underwriter over and over; disorganized behavior as well, Nan a pillow around caressing it, going into other people's rooms though he remains able to be redirected; patient is not in distress; dressed in casual attire with adequate hygiene; mood is described as good and affect congruent; eye contact appropriate; Speech is normal rate, volume and prosody and not pressured; some psychomotor agitation present as he keeps pacing and asking to talk with sba underwriter; thought process goal directed, but also tangential; Thought content is on various things such as his kids, some delusional thoughts; denies any SI/HI. Denies AVH; Patients insight and judgment impaired. Diagnostics Vital Signs (24Hr): Vital Signs - 24 hr 06/04/24 19:10 06/04/24 20:00 06/05/24 08:00 Temperature 98.2 F 96.8 F 98.6 F Pulse Rate 99 99 90 Respiratory Rate 16 20 18 Blood Pressure 125/76 125/76 121/64 Pulse Oximetry 98 98 96 Oxygen Delivery Method Room Air Room Air Room Air BMI result Body Mass Index 29.5 Labs 06/02/24 16:41 06/03/24 13:51 Labs: Laboratory Results - last 48 hr 06/03/24 06/04/24 06/04/24 13:51 19:35 21:46 Sodium 137 Potassium 3.6 Chloride 104 Carbon Dioxide 22 Anion Gap 15 BUN 8 L Creatinine 0.68 Estim Creat Clear Calc 92.5 Estimated GFR > 60 Random Glucose 138 H Calcium 9.4 Troponin I High Sens 8.0 D 7.3 Medications Medications Current Medications Al Hydroxide/Mg Hydroxide (Magnesium Hydrox/Alum Hydrox 30 Ml Oral.Susp) 30 ml PO Q6H PRN PRN Reason: Heartburn/Nausea Albuterol Sulfate (Albuterol Sulfate 90 Mcg 8 Gm Inhaler) 2 puff INHALE Q4H PRN PRN Reason: Wheezing Last Admin: 06/04/24 19:07 Dose: 2 puff Amlodipine Besylate (Amlodipine Besylate 2.5 Mg Tablet) 2.5 mg PO DAILY [facility]; Protocol Last Admin: 06/05/24 09:33 Dose: 2.5 mg Artificial Tears (Artificial Tears 15 Ml Drops) 1 drop EYE-BOTH Q4H PRN PRN Reason: Dry Eyes Last Admin: 06/04/24 13:57 Dose: 1 drop Aspirin (Aspirin Enteric Coated 81 Mg Tablet.) 81 mg PO DAILY [facility] Last Admin: 06/05/24 09:33 Dose: 81 mg Atorvastatin Calcium (Atorvastatin Calcium 40 Mg Tablet) 40 mg PO BEDTIME [facility] Last Admin: 06/04/24 20:39 Dose: 40 mg Benztropine Mesylate (Benztropine Mesylate 0.5 Mg Tablet) 0.5 mg PO BID [facility] Last Admin: 06/05/24 09:33 Dose: 0.5 mg Clonazepam (Clonazepam 0.5 Mg Tablet) 0.5 mg PO BID [facility] Last Admin: 06/05/24 09:33 Dose: 0.5 mg Ezetimibe (Ezetimibe 10 Mg Tablet) 10 mg PO DAILY [facility] Last Admin: 06/05/24 09:33 Dose: 10 mg Ferrous Sulfate (Ferrous Sulfate 324 Mg Tablet.) 324 mg PO DAILY [facility] Last Admin: 06/05/24 09:33 Dose: 324 mg Folic Acid (Folic Acid 1 Mg Tablet) 1 mg PO DAILY [facility] Last Admin: 06/05/24 09:33 Dose: 1 mg Hydroxyzine HCl (Hydroxyzine Hcl 25 Mg Tablet) 25 mg PO Q6H PRN PRN Reason: Anxiety Last Admin: 06/05/24 05:27 Dose: 25 mg Magnesium Hydroxide (Milk Of Magnesia 30 Ml Oral.Susp) 30 ml PO DAILY PRN PRN Reason: Constipation Metoprolol Succinate (Metoprolol Succinate Er 25 Mg Tab.Er.24h) 25 mg PO DAILY [facility]; Protocol Last Admin: 06/05/24 09:32 Dose: 25 mg Mirtazapine (Mirtazapine 30 Mg Tablet) 30 mg PO BEDTIME [facility] Last Admin: 06/04/24 20:39 Dose: 30 mg Nicotine Polacrilex (Nicotine Polacrilex 2 Mg Gum) 4 mg BUCCAL Q2H PRN PRN Reason: Nicotine Cravings Nicotine Polacrilex (Nicotine Polacrilex 2 Mg Gum) 4 mg BUCCAL Q2H PRN PRN Reason: Nicotine Cravings Omeprazole (Omeprazole 20 Mg Capsule.Dr) 20 mg PO DAILY@0630 [facility] Last Admin: 06/05/24 05:30 Dose: 20 mg Risperidone (Risperidone 3 Mg Tablet) 3 mg PO DAILY [facility] Last Admin: 06/05/24 09:33 Dose: 3 mg Risperidone (Risperidone 0.5 Mg Tablet) 0.5 mg PO BEDTIME [facility] Last Admin: 06/04/24 20:39 Dose: 0.5 mg Thiamine HCl (Thiamine Hcl 100 Mg Tablet) 100 mg PO DAILY [facility] Last Admin: 06/05/24 09:32 Dose: 100 mg Trazodone HCl (Trazodone Hcl 100 Mg Tablet) 100 mg PO BEDTIME [facility] Last Admin: 06/04/24 20:39 Dose: 100 mg Allergies Allergies Allergy/AdvReac Type Severity Reaction Status Date / Time acetaminophen Allergy Unknown PANADOL = Verified 06/02/24 16:01 ACETAMINOPHEN SHELLFISH Allergy Mild PATIENT Uncoded 06/02/24 16:01 REPORTS BURNING SENSATION THROUGHOUT OPIATES Allergy Unknown BECAME Uncoded 06/02/24 16:01 ADDICTED PANADOL Allergy Unknown UNKNOWN Uncoded 06/02/24 16:01 Assessment & Plan Assessment & Plan (1) Schizoaffective disorder: Qualifiers: Schizoaffective disorder type: unspecified Qualified Code(s): F25.9 - Schizoaffective disorder, unspecified Status: Acute Code(s): F25.9 - Schizoaffective disorder, unspecified (2) Intellectual delay: Status: Acute Code(s): F81.9 - Developmental disorder of scholastic skills, unspecified (3) CAD (coronary artery disease): Status: Acute Code(s): I25.10 - Atherosclerotic heart disease of [place] coronary artery without angina pectoris Plan Patient 59 yr old Albanian-speaking male with schizoaffective disorder, cognitive delay, who lives with his mother, recently discharged from on 05/20/2024 who presents via family for increased paranoia, anger and confusion. At last admission there was the thought that patient was not taking all of his medications, since the bulk of his Risperdal was prescribed at bedtime and the VNA only came in the morning. During this last admission, Risperdal changed so that he was taking the bulk of it in the morning and with VNA, seems he is taking his medications. Despite this, family reports that his behaviors are worsening. On the unit he is friendly and calm; he is confused saying he wants to go see his children, caring a pillow in his arms and calling it his baby. Formulation/clinical reasoning: It is not clear what is causing decline given that he is most likely taking his medications regularly. Some speculation that he might be abusing substance when out and about in neighborhood however UDS is negative. Setting up family meeting to discuss. Hospital course: 06/05 Patient denies any AH to sba underwriter. Denies any SI or HI and says I never look for problems... I am never aggressive... I am good... Although he denies AH, patient says there is too much noise on the unit, and that people are touching his face. Earlier he had told another staff that he was having AH to hurt himself but that he was able to ignore. Patient denies any current drug use; he adds that he used to live on the streets but now he goes to [facility]. Manager Maintenance asked about why he had been carrying a pillow around calling it his baby; patient did not really answer but said that he has a son and a granddaughter and that his is . Patient said he wanted to go home but then agreed to wait for meeting with outpatient staff this next Saturday. -patient does seem more confused than he did at last admission. Will increase Risperdal PLAN: CV q15 min continue home med regimen for now; will re-assess if changes need to be made once get more collateral Risperidone 3 mg PO DAILY [facility] Add Risperdal 1 mg in the afternoon Increase to Risperidone 1 mg PO BEDTIME [facility] Mirtazapine 30 mg PO BEDTIME [facility] Benztropine Mesylate 0.5 mg PO BID [facility] Clonazepam 0.5 mg PO BID [facility] Omeprazole 20 mg PO DAILY@0630 [facility] Albuterol Sulfate 2 puff INHALE Q4H PRN Amlodipine Besylate 2.5 mg PO DAILY [facility]; Protocol Artificial Tears 1 drop EYE-BOTH Q4H PRN Aspirin 81 mg PO DAILY [facility] Atorvastatin Calcium 40 mg PO BEDTIME [facility] Ezetimibe 10 mg PO DAILY [facility] Ferrous Sulfate 324 mg PO DAILY [facility] Folic Acid 1 mg PO DAILY [facility] Hydroxyzine HCl 25 mg PO Q6H PRN Metoprolol Succinate 25 mg PO DAILY [facility]; Protocol Thiamine HCl 100 mg PO DAILY [facility] Trazodone HCl 100 mg PO BEDTIME [facility] effective to March 26, 2025: Risperdal up to 10mg daily (primary) Geodon up to 60mg daily Zyprexa up to 25mg daily later in evening pt complained of right sided chest pain; vitals WNL and pt not in any distress but given hx for CAD ordered EKG and trop Patient educated on: diagnosis, medication risk/benefits and substance abuse Informed Consent: understands, does not understand and further education needed Reason for continued inpatient stay Substantial Risk for: inability to function Time Spent With Patient Time: Total time managing care of this patient today ____ minutes.
[2024-06-05] MEDS: Albuterol Sulfate 90 MCG 8 GM INHALER 2 PUFF INHALE ×2 (12:21→18:49)
[2024-06-05] MEDS: Nicotine Polacrilex 2 MG GUM 4 MG BUCCAL ×3 (14:09→21:42)
[2024-06-05] MEDS: Artificial Tears 15 ML DROPS 1 DROP EYE-BOTH ×2 (14:34→21:04)
[2024-06-05] MEDS: risperiDONE 0.5 MG TABLET PO ×2 (14:43→18:50)
[2024-06-05 20:00] VITALS: RESP 18; TEMP 36.7
--- NOTE | 2024-06-05 20:42 | PC.NURSE ---
pt refusing PM meds at this time. Per peers, pt is also pointing to chest and making gestures. Pt refusing to talk to female staff when addressed, pt walks away and says NO, NO, NO Pt skin P/W/D, respirations even and regular at 18 per minute. Pt ambulating unassisted with steady gait. Male RN requested at this time.
[2024-06-05] MEDS: risperiDONE 1 MG TABLET PO (21:10)
[2024-06-05] MEDS: traZODone HCL 100 MG TABLET PO (21:11)
[2024-06-05] MEDS: Atorvastatin Calcium 40 MG TABLET PO (21:11)
[2024-06-05] MEDS: Mirtazapine 30 MG TABLET PO (21:11)
[2024-06-05] MEDS: LORazepam 0.5 MG TABLET PO (21:42)
[2024-06-06] MEDS: Omeprazole 20 MG CAPSULE.DR PO (07:12)
[2024-06-06] MEDS: Artificial Tears 15 ML DROPS 1 DROP EYE-BOTH ×3 (07:14→21:39)
--- NOTE | 2024-06-06 08:51 | P.PNPSI_ITS ---
Subjective Subjective Date of Service: 06/06/24 Reason For Visit: Dysregulated Medical Problems Affecting Mental Status: No Interim History: Pt reviewed with team. He presents with persistance, attachment to certain team members-boundary struggles-holds on to team members as a young child would to a parent. One to one in place. Chlorpromazine 100 mg x 1, Olanzapine 10 mg x 1 given. Paranoia evident, difficulty taking medications. Intermittent reports of CP. EKG/VS wnl. Intermittent agitation. Medication Compliance: Intermittent Side effects from medications: No Attending Groups: No Review of Systems Acute medical concerns: No Medical Review of Systems: unchanged Review of Systems Review of Systems Yes Unobtainable due to mental status Mental Status Exam Mental Status Exam Patient Appearance: Appropriate Patient Orientation: Person and Place Level of Consciousness: Restless and Alert Patient Behavior: Talkative, Suspicious, Restless, Wandering, Anxious, Fearful, Resistive to Care, Distractible and Good Eye Contact Mood Description: Anxious and Apprehensive Affect Description: Anxious and Apprehensive Patient Cognition Impaired: Yes Ability to Follow Directions: Fair Speech Pattern: Perseverating and Spontaneous Speech Memory Description: Remote Impaired and Episodic Impaired Delusions: Present Thought Process: Rumination and Confusion Thought Content: positive for Perseveration, positive for Poverty of Content, positive for Slowed Thinking, positive for Tangential and positive for Disorganized Depressive Symptoms: Increased Anxiety, Crying Spells and Difficulty Concentrating Abnormal Motor Activity Signs and Symptoms: Agitation and Restlessness Judgement: Poor Diagnostics Vital Signs (24Hr): Vital Signs - 24 hr 06/05/24 20:00 Temperature 98.0 F Respiratory Rate 18 BMI result Body Mass Index 29.5 Labs 06/02/24 16:41 06/03/24 13:51 Labs: Laboratory Results - last 48 hr 06/04/24 06/04/24 19:35 21:46 Troponin I High Sens 8.0 D 7.3 Medications Medications Current Medications Al Hydroxide/Mg Hydroxide (Magnesium Hydrox/Alum Hydrox 30 Ml Oral.Susp) 30 ml PO Q6H PRN PRN Reason: Heartburn/Nausea Albuterol Sulfate (Albuterol Sulfate 90 Mcg 8 Gm Inhaler) 2 puff INHALE Q4H PRN PRN Reason: Wheezing Last Admin: 06/05/24 18:49 Dose: 2 puff Amlodipine Besylate (Amlodipine Besylate 2.5 Mg Tablet) 2.5 mg PO DAILY [facility]; Protocol Last Admin: 06/05/24 09:33 Dose: 2.5 mg Artificial Tears (Artificial Tears 15 Ml Drops) 1 drop EYE-BOTH Q4H PRN PRN Reason: Dry Eyes Last Admin: 06/06/24 07:14 Dose: 1 drop Aspirin (Aspirin Enteric Coated 81 Mg Tablet.) 81 mg PO DAILY [facility] Last Admin: 06/05/24 09:33 Dose: 81 mg Atorvastatin Calcium (Atorvastatin Calcium 40 Mg Tablet) 40 mg PO BEDTIME KAREN Last Admin: 06/05/24 21:11 Dose: 40 mg Benztropine Mesylate (Benztropine Mesylate 0.5 Mg Tablet) 0.5 mg PO BID [facility] Last Admin: 06/05/24 21:10 Dose: 0.5 mg Clonazepam (Clonazepam 0.5 Mg Tablet) 0.5 mg PO BID [facility] Last Admin: 06/05/24 21:11 Dose: 0.5 mg Ezetimibe (Ezetimibe 10 Mg Tablet) 10 mg PO DAILY [facility] Last Admin: 06/05/24 09:33 Dose: 10 mg Ferrous Sulfate (Ferrous Sulfate 324 Mg Tablet.) 324 mg PO DAILY [facility] Last Admin: 06/05/24 09:33 Dose: 324 mg Folic Acid (Folic Acid 1 Mg Tablet) 1 mg PO DAILY [facility] Last Admin: 06/05/24 09:33 Dose: 1 mg Hydroxyzine HCl (Hydroxyzine Hcl 25 Mg Tablet) 25 mg PO Q6H PRN PRN Reason: Anxiety Last Admin: 06/05/24 18:50 Dose: 25 mg Magnesium Hydroxide (Milk Of Magnesia 30 Ml Oral.Susp) 30 ml PO DAILY PRN PRN Reason: Constipation Metoprolol Succinate (Metoprolol Succinate Er 25 Mg Tab.Er.24h) 25 mg PO DAILY [facility]; Protocol Last Admin: 06/05/24 09:32 Dose: 25 mg Mirtazapine (Mirtazapine 30 Mg Tablet) 30 mg PO BEDTIME [facility] Last Admin: 06/05/24 21:11 Dose: 30 mg Nicotine Polacrilex (Nicotine Polacrilex 2 Mg Gum) 4 mg BUCCAL Q2H PRN PRN Reason: Nicotine Cravings Last Admin: 06/05/24 18:49 Dose: 4 mg Nicotine Polacrilex (Nicotine Polacrilex 2 Mg Gum) 4 mg BUCCAL Q2H PRN PRN Reason: Nicotine Cravings Last Admin: 06/05/24 21:42 Dose: 4 mg Omeprazole (Omeprazole 20 Mg Capsule.Dr) 20 mg PO DAILY@0630 [facility] Last Admin: 06/06/24 07:12 Dose: 20 mg Risperidone (Risperidone 3 Mg Tablet) 3 mg PO DAILY [facility] Last Admin: 06/05/24 09:33 Dose: 3 mg Risperidone (Risperidone 1 Mg Tablet) 1 mg PO DAILY@1400 KAREN Risperidone (Risperidone 1 Mg Tablet) 1 mg PO BEDTIME [facility] Last Admin: 06/05/24 21:10 Dose: 1 mg Risperidone (Risperidone 0.5 Mg Tablet) 0.5 mg PO Q4H PRN PRN Reason: AH Last Admin: 06/05/24 18:50 Dose: 0.5 mg Thiamine HCl (Thiamine Hcl 100 Mg Tablet) 100 mg PO DAILY [facility] Last Admin: 06/05/24 09:32 Dose: 100 mg Trazodone HCl (Trazodone Hcl 100 Mg Tablet) 100 mg PO BEDTIME [facility] Last Admin: 06/05/24 21:11 Dose: 100 mg Allergies Allergies Allergy/AdvReac Type Severity Reaction Status Date / Time acetaminophen Allergy Unknown PANADOL = Verified 06/02/24 16:01 ACETAMINOPHEN SHELLFISH Allergy Mild PATIENT Uncoded 06/02/24 16:01 REPORTS BURNING SENSATION THROUGHOUT OPIATES Allergy Unknown BECAME Uncoded 06/02/24 16:01 ADDICTED PANADOL Allergy Unknown UNKNOWN Uncoded 06/02/24 16:01 Assessment & Plan Assessment & Plan (1) Schizoaffective disorder: Qualifiers: Schizoaffective disorder type: unspecified Qualified Code(s): F25.9 - Schizoaffective disorder, unspecified Status: Acute Code(s): F25.9 - Schizoaffective disorder, unspecified (2) Intellectual delay: Status: Acute Code(s): F81.9 - Developmental disorder of scholastic skills, unspecified (3) CAD (coronary artery disease): Status: Acute Code(s): I25.10 - Atherosclerotic heart disease of [place] coronary artery without angina pectoris Plan Patient 59 yr old Moh[place]-speaking male with schizoaffective disorder, cognitive delay, who lives with his mother, recently discharged from on 05/20/2024 who presents via family for increased paranoia, anger and confusion. At last admission there was the thought that patient was not taking all of his medications, since the bulk of his Risperdal was prescribed at bedtime and the VNA only came in the morning. During this last admission, Risperdal changed so that he was taking the bulk of it in the morning and with VNA, seems he is taking his medications. Despite this, family reports that his behaviors are worsening. On the unit he is friendly and calm; he is confused saying he wants to go see his children, caring a pillow in his arms and calling it his baby. Formulation/clinical reasoning: It is not clear what is causing decline given that he is most likely taking his medications regularly. Some speculation that he might be abusing substance when out and about in neighborhood however UDS is negative. Setting up family meeting to discuss. PLAN: CV q15 min continue home med regimen for now; will re-assess if changes need to be made once get more collateral Risperidone 3 mg PO DAILY KAREN Risperidone 0.5 mg PO BEDTIME KAREN Mirtazapine 30 mg PO BEDTIME KAREN Benztropine Mesylate 0.5 mg PO BID KAREN Clonazepam 0.5 mg PO BID KAREN Omeprazole 20 mg PO DAILY@0630 KAREN Albuterol Sulfate 2 puff INHALE Q4H PRN Amlodipine Besylate 2.5 mg PO DAILY [facility]; Protocol Artificial Tears 1 drop EYE-BOTH Q4H PRN Aspirin 81 mg PO DAILY KAREN Atorvastatin Calcium 40 mg PO BEDTIME KAREN Ezetimibe 10 mg PO DAILY [facility] Ferrous Sulfate 324 mg PO DAILY KAREN Folic Acid 1 mg PO DAILY KAREN Hydroxyzine HCl 25 mg PO Q6H PRN Metoprolol Succinate 25 mg PO DAILY [facility]; Protocol Thiamine HCl 100 mg PO DAILY KAREN Trazodone HCl 100 mg PO BEDTIME [facility] effective to March 26, 2025: Risperdal up to 10mg daily (primary) Geodon up to 60mg daily Zyprexa up to 25mg daily later in evening pt complained of right sided chest pain; vitals WNL and pt not in any distress but given hx for CAD ordered EKG and trop. 06/06: Thorazine 100 mg x 1 given with no effect Olanzapine 10 mg x1 given with minimal effect One to one will continue Intermittent chest pain with WNL VS and stable EKG Currently focused on certain staff members whom he wants to be close to as he finds relief with them, unable to modulate appropriate boundaries. Needing much encouragement to accept scheduled medications Responding to support Reason for continued inpatient stay Substantial Risk for: rapid decompensation Time Spent With Patient Time: Total time managing care of this patient today ____ minutes.
[2024-06-06 09:11] VITALS: BP 127/75; PULSE 95; RESP 18; TEMP 36.7; O2SAT 98
[2024-06-06] MEDS: Aspirin Enteric Coated 81 MG TABLET.DR PO (11:35)
[2024-06-06] MEDS: clonazePAM 0.5 MG TABLET PO ×2 (11:35→21:38)
[2024-06-06] MEDS: Ferrous Sulfate 324 MG TABLET.DR PO (11:35)
[2024-06-06] MEDS: chlorproMAZINE HCl 100 MG TABLET PO (11:35)
[2024-06-06] MEDS: Ezetimibe 10 MG TABLET PO (11:35)
[2024-06-06] MEDS: risperiDONE 0.5 MG TABLET PO ×2 (11:35→17:11)
[2024-06-06] MEDS: Benztropine Mesylate 0.5 MG TABLET PO ×2 (11:35→21:38)
[2024-06-06] MEDS: Thiamine HCL 100 MG TABLET PO (11:35)
[2024-06-06] MEDS: amLODIPine Besylate 2.5 MG TABLET PO (11:35)
[2024-06-06] MEDS: risperiDONE 3 MG TABLET PO (11:35)
[2024-06-06] MEDS: Metoprolol Succinate ER 25 MG TAB.ER.24H PO (11:35)
[2024-06-06] MEDS: Folic Acid 1 MG TABLET PO (11:35)
[2024-06-06] MEDS: OLANZapine ODT 10 MG TAB.RAPDIS TRANSLINGU (13:10)
[2024-06-06] MEDS: risperiDONE 1 MG TABLET PO ×2 (13:10→21:38)
[2024-06-06] MEDS: Albuterol Sulfate 90 MCG 8 GM INHALER 2 PUFF INHALE ×3 (13:12→21:39)
[2024-06-06] MEDS: Nicotine Polacrilex 2 MG GUM 4 MG BUCCAL ×2 (13:13→17:14)
[2024-06-06] MEDS: hydrOXYzine HCL 25 MG TABLET PO (17:10)
[2024-06-06 20:00] VITALS: BP 146/83; PULSE 116; TEMP 35.9
[2024-06-06] MEDS: Atorvastatin Calcium 40 MG TABLET PO (21:38)
[2024-06-06] MEDS: traZODone HCL 100 MG TABLET PO (21:38)
[2024-06-06] MEDS: Mirtazapine 30 MG TABLET PO (21:38)
[2024-06-07] MEDS: Omeprazole 20 MG CAPSULE.DR PO (07:15)
[2024-06-07] MEDS: Artificial Tears 15 ML DROPS 1 DROP EYE-BOTH ×4 (07:17→22:03)
[2024-06-07] MEDS: Albuterol Sulfate 90 MCG 8 GM INHALER 2 PUFF INHALE ×4 (07:21→22:03)
[2024-06-07 08:00] VITALS: BP 128/81; PULSE 94; RESP 17; TEMP 36.9; O2SAT 98
[2024-06-07] MEDS: Metoprolol Succinate ER 25 MG TAB.ER.24H PO (08:48)
[2024-06-07] MEDS: Ferrous Sulfate 324 MG TABLET.DR PO (08:48)
[2024-06-07] MEDS: Thiamine HCL 100 MG TABLET PO (08:48)
[2024-06-07] MEDS: clonazePAM 0.5 MG TABLET PO ×2 (08:48→21:36)
[2024-06-07] MEDS: Aspirin Enteric Coated 81 MG TABLET.DR PO (08:48)
[2024-06-07] MEDS: risperiDONE 3 MG TABLET PO (08:48)
[2024-06-07] MEDS: amLODIPine Besylate 2.5 MG TABLET PO (08:48)
[2024-06-07] MEDS: Folic Acid 1 MG TABLET PO (08:48)
[2024-06-07] MEDS: Ezetimibe 10 MG TABLET PO (08:48)
[2024-06-07] MEDS: Benztropine Mesylate 0.5 MG TABLET PO ×2 (08:49→21:36)
[2024-06-07] MEDS: hydrOXYzine HCL 25 MG TABLET PO (11:22)
--- NOTE | 2024-06-07 12:35 | P.PNPSI_ITS ---
Subjective Subjective Date of Service: 06/13/24 Reason For Visit: Dysregulated Review of Systems Care review with the team. Continues on one to one. Persistent in contact with certain team members however more easily redirectable today with a decrease in urgency and intensity. Medical Review of Systems: unchanged Review of Systems Review of Systems Yes Unobtainable due to mental status Mental Status Exam Mental Status Exam Patient Appearance: Appropriate Patient Orientation: Person and Place Level of Consciousness: Restless and Alert Patient Behavior: Talkative, Suspicious, Restless, Wandering, Anxious, Fearful, Resistive to Care, Distractible and Good Eye Contact Mood Description: Anxious and Apprehensive Affect Description: Anxious and Apprehensive Patient Cognition Impaired: Yes Ability to Follow Directions: Fair Speech Pattern: Perseverating and Spontaneous Speech Memory Description: Remote Impaired and Episodic Impaired Delusions: Present Thought Process: Rumination and Confusion Thought Content: positive for Perseveration, positive for Poverty of Content, positive for Slowed Thinking, positive for Tangential and positive for Disorganized Depressive Symptoms: Increased Anxiety, Crying Spells and Difficulty Concentrating Abnormal Motor Activity Signs and Symptoms: Agitation and Restlessness Judgement: Poor Diagnostics Vital Signs (24Hr): Vital Signs - 24 hr 06/06/24 20:00 06/07/24 08:00 Temperature 96.6 F L 98.4 F Pulse Rate 116 H 94 Respiratory Rate 17 Blood Pressure 146/83 H 128/81 Pulse Oximetry 98 Oxygen Delivery Method Room Air BMI result Body Mass Index 29.5 Labs 06/02/24 16:41 06/03/24 13:51 Medications Medications Current Medications Al Hydroxide/Mg Hydroxide (Magnesium Hydrox/Alum Hydrox 30 Ml Oral.Susp) 30 ml PO Q6H PRN PRN Reason: Heartburn/Nausea Albuterol Sulfate (Albuterol Sulfate 90 Mcg 8 Gm Inhaler) 2 puff INHALE Q4H PRN PRN Reason: Wheezing Last Admin: 06/07/24 11:23 Dose: 2 puff Amlodipine Besylate (Amlodipine Besylate 2.5 Mg Tablet) 2.5 mg PO DAILY [facility]AREN; Protocol Last Admin: 06/07/24 08:48 Dose: 2.5 mg Artificial Tears (Artificial Tears 15 Ml Drops) 1 drop EYE-BOTH Q4H PRN PRN Reason: Dry Eyes Last Admin: 06/07/24 11:23 Dose: 1 drop Aspirin (Aspirin Enteric Coated 81 Mg Tablet.Dr) 81 mg PO DAILY [facility] Last Admin: 06/07/24 08:48 Dose: 81 mg Atorvastatin Calcium (Atorvastatin Calcium 40 Mg Tablet) 40 mg PO BEDTIME [facility] Last Admin: 06/06/24 21:38 Dose: 40 mg Benztropine Mesylate (Benztropine Mesylate 0.5 Mg Tablet) 0.5 mg PO BID [facility] Last Admin: 06/07/24 08:49 Dose: 0.5 mg Clonazepam (Clonazepam 0.5 Mg Tablet) 0.5 mg PO BID [facility] Last Admin: 06/07/24 08:48 Dose: 0.5 mg Ezetimibe (Ezetimibe 10 Mg Tablet) 10 mg PO DAILY [facility] Last Admin: 06/07/24 08:48 Dose: 10 mg Ferrous Sulfate (Ferrous Sulfate 324 Mg Tablet.) 324 mg PO DAILY [facility] Last Admin: 06/07/24 08:48 Dose: 324 mg Folic Acid (Folic Acid 1 Mg Tablet) 1 mg PO DAILY [facility] Last Admin: 06/07/24 08:48 Dose: 1 mg Hydroxyzine HCl (Hydroxyzine Hcl 25 Mg Tablet) 25 mg PO Q6H PRN PRN Reason: Anxiety Last Admin: 06/07/24 11:22 Dose: 25 mg Magnesium Hydroxide (Milk Of Magnesia 30 Ml Oral.Susp) 30 ml PO DAILY PRN PRN Reason: Constipation Metoprolol Succinate (Metoprolol Succinate Er 25 Mg Tab.Er.24h) 25 mg PO DAILY [facility]; Protocol Last Admin: 06/07/24 08:48 Dose: 25 mg Mirtazapine (Mirtazapine 30 Mg Tablet) 30 mg PO BEDTIME [facility] Last Admin: 06/06/24 21:38 Dose: 30 mg Nicotine Polacrilex (Nicotine Polacrilex 2 Mg Gum) 4 mg BUCCAL Q2H PRN PRN Reason: Nicotine Cravings Last Admin: 06/06/24 17:14 Dose: 4 mg Nicotine Polacrilex (Nicotine Polacrilex 2 Mg Gum) 4 mg BUCCAL Q2H PRN PRN Reason: Nicotine Cravings Last Admin: 06/05/24 21:42 Dose: 4 mg Omeprazole (Omeprazole 20 Mg Capsule.) 20 mg PO DAILY@0630 [facility] Last Admin: 06/07/24 07:15 Dose: 20 mg Risperidone (Risperidone 3 Mg Tablet) 3 mg PO DAILY [facility] Last Admin: 06/07/24 08:48 Dose: 3 mg Risperidone (Risperidone 1 Mg Tablet) 1 mg PO DAILY@1400 [facility] Last Admin: 06/06/24 13:10 Dose: 1 mg Risperidone (Risperidone 1 Mg Tablet) 1 mg PO BEDTIME [facility] Last Admin: 06/06/24 21:38 Dose: 1 mg Risperidone (Risperidone 0.5 Mg Tablet) 0.5 mg PO Q4H PRN PRN Reason: Last Admin: 06/06/24 17:11 Dose: 0.5 mg Thiamine HCl (Thiamine Hcl 100 Mg Tablet) 100 mg PO DAILY [facility] Last Admin: 06/07/24 08:48 Dose: 100 mg Trazodone HCl (Trazodone Hcl 100 Mg Tablet) 100 mg PO BEDTIME [facility] Last Admin: 06/06/24 21:38 Dose: 100 mg Allergies Allergies Allergy/AdvReac Type Severity Reaction Status Date / Time acetaminophen Allergy Unknown PANADOL = Verified 06/02/24 16:01 ACETAMINOPHEN SHELLFISH Allergy Mild PATIENT Uncoded 06/02/24 16:01 REPORTS BURNING SENSATION THROUGHOUT OPIATES Allergy Unknown BECAME Uncoded 06/02/24 16:01 ADDICTED PANADOL Allergy Unknown UNKNOWN Uncoded 06/02/24 16:01 Assessment & Plan Assessment & Plan (1) Schizoaffective disorder: Qualifiers: Schizoaffective disorder type: unspecified Qualified Code(s): F25.9 - Schizoaffective disorder, unspecified Status: Acute Code(s): F25.9 - Schizoaffective disorder, unspecified (2) Intellectual delay: Status: Acute Code(s): F81.9 - Developmental disorder of scholastic skills, unspecified (3) CAD (coronary artery disease): Status: Acute Code(s): I25.10 - Atherosclerotic heart disease of [place] coronary artery without angina pectoris Plan Patient 59 yr old Chinese-speaking male with schizoaffective disorder, cognitive delay, who lives with his mother, recently discharged from on 05/20/2024 who presents via family for increased paranoia, anger and confusion. At last admission there was the thought that patient was not taking all of his medications, since the bulk of his Risperdal was prescribed at bedtime and the [facility]NA only came in the morning. During this last admission, Risperdal changed so that he was taking the bulk of it in the morning and with VNA, seems he is taking his medications. Despite this, family reports that his behaviors are worsening. On the unit he is friendly and calm; he is confused saying he wants to go see his children, caring a pillow in his arms and calling it his baby. Formulation/clinical reasoning: It is not clear what is causing decline given that he is most likely taking his medications regularly. Some speculation that he might be abusing substance when out and about in neighborhood however UDS is negative. Setting up family meeting to discuss. PLAN: CV q15 min continue home med regimen for now; will re-assess if changes need to be made once get more collateral Risperidone 3 mg PO DAILY KAREN Risperidone 0.5 mg PO BEDTIME KAREN Mirtazapine 30 mg PO BEDTIME KAREN Benztropine Mesylate 0.5 mg PO BID KAREN Clonazepam 0.5 mg PO BID KAREN Omeprazole 20 mg PO DAILY@0630 KAREN Albuterol Sulfate 2 puff INHALE Q4H PRN Amlodipine Besylate 2.5 mg PO DAILY [facility]; Protocol Artificial Tears 1 drop EYE-BOTH Q4H PRN Aspirin 81 mg PO DAILY [facility] Atorvastatin Calcium 40 mg PO BEDTIME KAREN Ezetimibe 10 mg PO DAILY [facility] Ferrous Sulfate 324 mg PO DAILY [facility]AREN Folic Acid 1 mg PO DAILY KAREN Hydroxyzine HCl 25 mg PO Q6H PRN Metoprolol Succinate 25 mg PO DAILY [facility]; Protocol Thiamine HCl 100 mg PO DAILY [facility] Trazodone HCl 100 mg PO BEDTIME [facility] effective to March 26, 2025: Risperdal up to 10mg daily (primary) Geodon up to 60mg daily Zyprexa up to 25mg daily later in evening pt complained of right sided chest pain; vitals WNL and pt not in any distress but given hx for CAD ordered EKG and trop 06/07/24: Continue supportive treatment Reason for continued inpatient stay Substantial Risk for: rapid decompensation and med/psych decompensation Time Spent With Patient Time: Total time managing care of this patient today ____ minutes.
[2024-06-07] MEDS: risperiDONE 1 MG TABLET PO ×2 (13:20→21:36)
[2024-06-07] MEDS: risperiDONE 0.5 MG TABLET PO (13:53)
[2024-06-07] MEDS: OLANZapine 5 MG TABLET PO (15:02)
[2024-06-07] MEDS: Nicotine Polacrilex 2 MG GUM 4 MG BUCCAL (15:04)
[2024-06-07 20:00] VITALS: BP 134/87; PULSE 102; RESP 18; TEMP 36.2; O2SAT 98
[2024-06-07] MEDS: Atorvastatin Calcium 40 MG TABLET PO (21:36)
[2024-06-07] MEDS: Mirtazapine 30 MG TABLET PO (21:36)
[2024-06-07] MEDS: traZODone HCL 100 MG TABLET PO (21:36)
[2024-06-08] MEDS: Albuterol Sulfate 90 MCG 8 GM INHALER 2 PUFF INHALE ×4 (02:46→23:48)
[2024-06-08] MEDS: Artificial Tears 15 ML DROPS 1 DROP EYE-BOTH ×4 (02:46→23:48)
[2024-06-08] MEDS: OLANZapine 5 MG TABLET PO ×3 (03:05→23:46)
[2024-06-08] MEDS: hydrOXYzine HCL 25 MG TABLET PO ×3 (03:33→23:46)
[2024-06-08] MEDS: risperiDONE 0.5 MG TABLET PO (03:34)
[2024-06-08] MEDS: Nicotine Polacrilex 2 MG GUM 4 MG BUCCAL ×4 (03:36→13:22)
[2024-06-08] MEDS: Omeprazole 20 MG CAPSULE.DR PO (06:04)
[2024-06-08 08:00] VITALS: BP 129/75; PULSE 86; RESP 16; TEMP 36.6; O2SAT 99
[2024-06-08] MEDS: Aspirin Enteric Coated 81 MG TABLET.DR PO (08:35)
[2024-06-08 08:36] VITALS: BP 129/75; PULSE 86
[2024-06-08] MEDS: Ferrous Sulfate 324 MG TABLET.DR PO (08:36)
[2024-06-08] MEDS: Metoprolol Succinate ER 25 MG TAB.ER.24H PO (08:36)
[2024-06-08] MEDS: Thiamine HCL 100 MG TABLET PO (08:36)
[2024-06-08] MEDS: Ezetimibe 10 MG TABLET PO (08:36)
[2024-06-08] MEDS: amLODIPine Besylate 2.5 MG TABLET PO (08:36)
[2024-06-08] MEDS: clonazePAM 0.5 MG TABLET PO ×2 (08:36→20:10)
[2024-06-08] MEDS: Folic Acid 1 MG TABLET PO (08:36)
[2024-06-08] MEDS: Benztropine Mesylate 0.5 MG TABLET PO ×2 (08:36→20:10)
[2024-06-08] MEDS: risperiDONE 3 MG TABLET PO ×2 (08:36→20:10)
--- NOTE | 2024-06-08 09:54 | P.PNPSI_ITS ---
Subjective Subjective Date of Service: 06/08/24 Reason For Visit: Dysregulated Interim History: Met with patient; discussed with team; met with outpatient team Patient remains disorganized, able to be goal-directed on some topics such as wanting is close but otherwise trying to enter in any open door he sees and needing frequent redirection. Discussed case with outpt team: Efraín Gray, DDS Nimisha Glaser DDS Marlyn Brennan [place] No one is sure why patient has decompensated after decades of remaining stable on Risperdal. Says that for some reason this past month he has been more paranoid, more disorganized and when he returned from last admission he was not quite back to baseline. The past weeks patient was given away clothing on the street. This past admission was following patient argument with a neighbor. Apparently he had been peeking into this neighbor's window, scaring the neighbor and scared the neighbor's kids. They had a verbal altercation; staff arrived and patient kept saying he was going to go over to the neighbor's and take care of the neighbor... No actual threat was made and patient has no history of aggression but because of this he was taken to the hospital. Bret has discussed eviction of both patient and his elderly mother if behaviors continue. Team wondered if patient was not taking his medications however technical document writer explained that the bulk of his medications were switched so the [facility] was giving him the 3 mg of Risperdal out of the 3.5 total daily dose making this less likely the issue. They say at baseline he paces and is anxious but he pretty much make sense and though he may say some delusional things his conversations are overall able to remain grounded in reality. Discussed various options including temporary housing and likelihood that patient will at some point in the near future need some type of group living arrangement as his mother is elderly and with some dementia Mental Status Exam Mental Status Exam Narrative: Pt is alert and oriented; behavior is more restless, wandering, accidentally intrusive, disorganized; can also be cooperative, and is always overly friendly; remains able to be easily redirected; patient is not in distress; dressed in hospital l attire, scruffy with adequate hygiene; mood is described as good and but affect is constricted and patient sometimes tearful; eye contact appropriate; Speech is normal rate, volume and prosody and not pressured; moderate psychomotor agitation present as he keeps pacing, trying to enter any open door; thought process can be goal directed, but also tangential; Thought content is on various things, some delusional thoughts; denies any SI/HI. Denies AVH; Patients insight and judgment impaired. Diagnostics Vital Signs (24Hr): Vital Signs - 24 hr 06/07/24 20:00 06/08/24 08:36 06/08/24 08:36 Temperature 97.2 F Pulse Rate 102 H 86 Respiratory Rate 18 Blood Pressure 134/87 129/75 129/75 Pulse Oximetry 98 Oxygen Delivery Method Room Air BMI result Body Mass Index 29.5 Labs 06/02/24 16:41 06/03/24 13:51 Medications Medications Current Medications Al Hydroxide/Mg Hydroxide (Magnesium Hydrox/Alum Hydrox 30 Ml Oral.Susp) 30 ml PO Q6H PRN PRN Reason: Heartburn/Nausea Albuterol Sulfate (Albuterol Sulfate 90 Mcg 8 Gm Inhaler) 2 puff INHALE Q4H PRN PRN Reason: Wheezing Last Admin: 06/08/24 09:21 Dose: 2 puff Amlodipine Besylate (Amlodipine Besylate 2.5 Mg Tablet) 2.5 mg PO DAILY [facility]; Protocol Last Admin: 06/08/24 08:36 Dose: 2.5 mg Artificial Tears (Artificial Tears 15 Ml Drops) 1 drop EYE-BOTH Q4H PRN PRN Reason: Dry Eyes Last Admin: 06/08/24 09:21 Dose: 1 drop Aspirin (Aspirin Enteric Coated 81 Mg Tablet.Dr) 81 mg PO DAILY [facility] Last Admin: 06/08/24 08:35 Dose: 81 mg Atorvastatin Calcium (Atorvastatin Calcium 40 Mg Tablet) 40 mg PO BEDTIME KAREN Last Admin: 06/07/24 21:36 Dose: 40 mg Benztropine Mesylate (Benztropine Mesylate 0.5 Mg Tablet) 0.5 mg PO BID [facility] Last Admin: 06/08/24 08:36 Dose: 0.5 mg Clonazepam (Clonazepam 0.5 Mg Tablet) 0.5 mg PO BID [facility] Last Admin: 06/08/24 08:36 Dose: 0.5 mg Ezetimibe (Ezetimibe 10 Mg Tablet) 10 mg PO DAILY [facility] Last Admin: 06/08/24 08:36 Dose: 10 mg Ferrous Sulfate (Ferrous Sulfate 324 Mg Tablet.) 324 mg PO DAILY [facility] Last Admin: 06/08/24 08:36 Dose: 324 mg Folic Acid (Folic Acid 1 Mg Tablet) 1 mg PO DAILY [facility] Last Admin: 06/08/24 08:36 Dose: 1 mg Hydroxyzine HCl (Hydroxyzine Hcl 25 Mg Tablet) 25 mg PO Q6H PRN PRN Reason: Anxiety Last Admin: 06/08/24 03:33 Dose: 25 mg Magnesium Hydroxide (Milk Of Magnesia 30 Ml Oral.Susp) 30 ml PO DAILY PRN PRN Reason: Constipation Metoprolol Succinate (Metoprolol Succinate Er 25 Mg Tab.Er.24h) 25 mg PO DAILY [facility]; Protocol Last Admin: 06/08/24 08:36 Dose: 25 mg Mirtazapine (Mirtazapine 30 Mg Tablet) 30 mg PO BEDTIME KAREN Last Admin: 06/07/24 21:36 Dose: 30 mg Nicotine Polacrilex (Nicotine Polacrilex 2 Mg Gum) 4 mg BUCCAL Q2H PRN PRN Reason: Nicotine Cravings Last Admin: 06/08/24 09:30 Dose: 4 mg Nicotine Polacrilex (Nicotine Polacrilex 2 Mg Gum) 4 mg BUCCAL Q2H PRN PRN Reason: Nicotine Cravings Last Admin: 06/05/24 21:42 Dose: 4 mg Olanzapine (Olanzapine 5 Mg Tablet) 5 mg PO Q4H PRN PRN Reason: psychosis, agitation Last Admin: 06/08/24 03:05 Dose: 5 mg Omeprazole (Omeprazole 20 Mg Capsule.) 20 mg PO DAILY@0630 [facility] Last Admin: 06/08/24 06:04 Dose: 20 mg Risperidone (Risperidone 3 Mg Tablet) 3 mg PO DAILY [facility] Last Admin: 06/08/24 08:36 Dose: 3 mg Risperidone (Risperidone 1 Mg Tablet) 1 mg PO DAILY@1400 [facility] Last Admin: 06/07/24 13:20 Dose: 1 mg Risperidone (Risperidone 1 Mg Tablet) 1 mg PO BEDTIME [facility] Last Admin: 06/07/24 21:36 Dose: 1 mg Risperidone (Risperidone 0.5 Mg Tablet) 0.5 mg PO Q4H PRN PRN Reason: AH Last Admin: 06/08/24 03:34 Dose: 0.5 mg Thiamine HCl (Thiamine Hcl 100 Mg Tablet) 100 mg PO DAILY [facility] Last Admin: 06/08/24 08:36 Dose: 100 mg Trazodone HCl (Trazodone Hcl 100 Mg Tablet) 100 mg PO BEDTIME KAREN Last Admin: 06/07/24 21:36 Dose: 100 mg Allergies Allergies Allergy/AdvReac Type Severity Reaction Status Date / Time acetaminophen Allergy Unknown PANADOL = Verified 06/02/24 16:01 ACETAMINOPHEN SHELLFISH Allergy Mild PATIENT Uncoded 06/02/24 16:01 REPORTS BURNING SENSATION THROUGHOUT OPIATES Allergy Unknown BECAME Uncoded 06/02/24 16:01 ADDICTED PANADOL Allergy Unknown UNKNOWN Uncoded 06/02/24 16:01 Assessment & Plan Assessment & Plan (1) Schizoaffective disorder: Qualifiers: Schizoaffective disorder type: unspecified Qualified Code(s): F25.9 - Schizoaffective disorder, unspecified Status: Acute Code(s): F25.9 - Schizoaffective disorder, unspecified (2) Intellectual delay: Status: Acute Code(s): F81.9 - Developmental disorder of scholastic skills, unspecified (3) CAD (coronary artery disease): Status: Acute Code(s): I25.10 - Atherosclerotic heart disease of [place] coronary artery without angina pectoris Plan Patient 59 yr old [place]ut-speaking male with schizoaffective disorder, cognitive delay, who lives with his mother, recently discharged from on 05/20/2024 who presents via family for increased paranoia, anger and confusion. At last admission there was the thought that patient was not taking all of his medications, since the bulk of his Risperdal was prescribed at bedtime and the [facility] only came in the morning. During this last admission, Risperdal changed so that he was taking the bulk of it in the morning and with VNA, seems he is taking his medications. Despite this, family reports that his behaviors are worsening. On the unit he is friendly and calm; he is confused saying he wants to go see his children, caring a pillow in his arms and calling it his baby. Formulation/clinical reasoning: It is not clear what is causing decline given that he is most likely taking his medications regularly. Some speculation that he might be abusing substance when out and about in neighborhood however UDS is negative. Setting up family meeting to discuss. Hospital course: 06/05 Patient denies any AH to technical document writer. Denies any SI or HI and says I never look for problems... I am never aggressive... I am good... Although he denies AH, patient says there is too much noise on the unit, and that people are touching his face. Earlier he had told another staff that he was having AH to hurt himself but that he was able to ignore. Patient denies any current drug use; he adds that he used to live on the streets but now he goes to [facility]. Torch Cutter asked about why he had been carrying a pillow around calling it his baby; patient did not really answer but said that he has a son and a granddaughter and that his is . Patient said he wanted to go home but then agreed to wait for meeting with outpatient staff this next Saturday. -patient does seem more confused than he did at last admission. Will increase Risperdal 06/08 Patient remains disorganized, able to be goal-directed on some topics such as wanting is close but otherwise trying to enter in any open door he sees and needing frequent redirection. SW and technical document writer Discussed case with outpt team: SHIMA Ruby DDS Marlyn Brennan [place] No one is sure why patient has decompensated after decades of remaining stable on Risperdal. Says that for some reason this past month he has been more paranoid, more disorganized and when he returned from last admission he was not quite back to baseline. The past weeks patient was given away clothing on the street. This past admission was following patient argument with a neighbor. Apparently he had been peeking into this neighbor's window, scaring the neighbor and scared the neighbor's kids. They had a verbal altercation; staff arrived and patient kept saying he was going to go over to the neighbor's and take care of the neighbor... No actual threat was made and patient has no history of aggression but because of this he was taken to the hospital. Bret has discussed eviction of both patient and his elderly mother if behaviors continue. Team wondered if patient was not taking his medications however technical document writer explained that the bulk of his medications were switched so the [facility]NA was giving him the 3 mg of Risperdal out of the 3.5 total daily dose making this less likely the issue. They say at baseline he paces and is anxious but he pretty much make sense and though he may say some delusional things his conversations are overall able to remain grounded in reality. Discussed various options including temporary housing and likelihood that patient will at some point in the near future need some type of group living arrangement as his mother is elderly and with some dementia Unclear why patient has decompensated; will increase Risperdal to see if that can help. Thus far no clear organic etiology; will get additional labs to trying rule out other possible causes, including HIV and RPR, magnesium, B12/folate; will likely get head CT, though anticipate that results will be unremarkable. UDS was negative and UA showed no bacterial growth. Will try to get more collateral from family PLAN: CV Guardian 1:1 for accidental intrusiveness to others and needing to be redirected Increase to risperidone 3 mg b.i.d. (was total daily dose of 3.5mg as outpt) Mirtazapine 30 mg PO BEDTIME KAREN Benztropine Mesylate 0.5 mg PO BID KAREN Clonazepam 0.5 mg PO BID KAREN Omeprazole 20 mg PO DAILY@0630 KAREN Albuterol Sulfate 2 puff INHALE Q4H PRN Amlodipine Besylate 2.5 mg PO DAILY [facility]; Protocol Artificial Tears 1 drop EYE-BOTH Q4H PRN Aspirin 81 mg PO DAILY KAREN Atorvastatin Calcium 40 mg PO BEDTIME KAREN Ezetimibe 10 mg PO DAILY KAREN Ferrous Sulfate 324 mg PO DAILY KAREN Folic Acid 1 mg PO DAILY KAREN Hydroxyzine HCl 25 mg PO Q6H PRN Metoprolol Succinate 25 mg PO DAILY [facility]; Protocol Thiamine HCl 100 mg PO DAILY KAREN Trazodone HCl 100 mg PO BEDTIME [facility] effective to March 26, 2025: Risperdal up to 10mg daily (primary) Geodon up to 60mg daily Zyprexa up to 25mg daily later in evening pt complained of right sided chest pain; vitals WNL and pt not in any distress but given hx for CAD ordered EKG and trop Patient educated on: diagnosis and medication risk/benefits Informed Consent: does not understand Reason for continued inpatient stay Substantial Risk for: inability to function Time Spent With Patient Time: Total time managing care of this patient today ____ minutes.
[2024-06-08] MEDS: risperiDONE 1 MG TABLET PO (13:22)
[2024-06-08 20:00] VITALS: BP 139/89; PULSE 104; RESP 1; TEMP 36.9; O2SAT 96
[2024-06-08 20:00] LABS: TSH reflex Free T4 2.23 uIU/mL (0.32-4.0)
[2024-06-08] MEDS: traZODone HCL 100 MG TABLET PO (20:10)
[2024-06-08] MEDS: Atorvastatin Calcium 40 MG TABLET PO (20:10)
[2024-06-08] MEDS: Mirtazapine 30 MG TABLET PO (20:10)
[2024-06-08 20:17] LABS: Folate 11.9 ng/mL (> or = 4.0); Vitamin B12 517 pg/mL (200-900)
[2024-06-09] MEDS: Omeprazole 20 MG CAPSULE.DR PO (07:09)
[2024-06-09 08:00] VITALS: BP 122/74; PULSE 116; RESP 18; TEMP 36; O2SAT 96
[2024-06-09] MEDS: Thiamine HCL 100 MG TABLET PO (08:15)
[2024-06-09] MEDS: Aspirin Enteric Coated 81 MG TABLET.DR PO (08:15)
[2024-06-09] MEDS: amLODIPine Besylate 2.5 MG TABLET PO (08:15)
[2024-06-09] MEDS: risperiDONE 3 MG TABLET PO ×2 (08:15→20:05)
[2024-06-09] MEDS: Ferrous Sulfate 324 MG TABLET.DR PO (08:15)
[2024-06-09] MEDS: Ezetimibe 10 MG TABLET PO (08:15)
[2024-06-09] MEDS: Benztropine Mesylate 0.5 MG TABLET PO ×2 (08:15→20:05)
[2024-06-09] MEDS: clonazePAM 0.5 MG TABLET PO ×2 (08:16→20:05)
[2024-06-09] MEDS: Folic Acid 1 MG TABLET PO (08:16)
[2024-06-09] MEDS: Metoprolol Succinate ER 25 MG TAB.ER.24H PO (08:16)
[2024-06-09] MEDS: Nicotine Polacrilex 2 MG GUM 4 MG BUCCAL ×3 (08:29→18:53)
[2024-06-09] MEDS: Artificial Tears 15 ML DROPS 1 DROP EYE-BOTH ×2 (08:30→15:39)
[2024-06-09 08:39] LABS: HIV AB/AG Nonreactive (Nonreactive); HIV Num 1 0.06 S/CO (0.00-0.99)
[2024-06-09 08:53] LABS: Syphilis Screen Nonreactive (Nonreactive)
[2024-06-09 11:24] LABS: Appearance Urine Clear; Color Urine Yellow; Glucose Urine UA Negative (Negative); Leukocyte Esterase Urine Small (1+) (Negative); Nitrite Urine Negative (Negative); PH 6.5 (5.0-9.0); UMIC TRIGGER UACC YES; Urine Blood Negative (Negative); Urine Ketones Negative (Negative); Urine Protein Negative (Neg-Trace)
[2024-06-09 11:51] LABS: Bacteria Urine None Seen (None Seen); Hyaline Casts Urine 0-2 /LPF (0-2); RBC Urine 0-2 /HPF (0-2); Squamous Epithelial Cell Urine 0-2 /HPF (0-2); UACC Culture Trigger YES; WBC Urine 0-5 /HPF (0-5)
[2024-06-09] MEDS: OLANZapine 5 MG TABLET PO ×2 (13:58→20:49)
[2024-06-09 15:27] VITALS: BP 129/78; PULSE 89; RESP 18; TEMP 36.6; O2SAT 96
[2024-06-09] MEDS: Albuterol Sulfate 90 MCG 8 GM INHALER 2 PUFF INHALE (15:39)
--- NOTE | 2024-06-09 15:57 | HO.PSYCHPN ---
Subjective Subjective Date of Service: 06/09/24 Reason For Visit: Dysregulated Interim History: Met with patient; discussed with team Patient remains confused and disorganized, jumping from topic to topic. He agrees to remain to have meeting on Saturday but otherwise says he is missing home. Patient denies any chest pain but passes hard to say that he has a heart condition and has a surgically implanted mesh. Patient starts to cry and says that people are laughing at him that he can hear them doing so; he also said that a staff person's came in to his room last night and choked. Patient started taking should often group today. Mental Status Exam Mental Status Exam Narrative: Pt is alert and oriented; behavior is more restless, wandering, accidentally intrusive, disorganized; can also be cooperative, and is always overly friendly; remains able to be easily redirected; patient is not in distress; dressed in hospital l attire, scruffy with adequate hygiene; mood is described as good and but affect is constricted and patient sometimes tearful; eye contact appropriate; Speech is normal rate, volume and prosody and not pressured; moderate psychomotor agitation present as he keeps pacing, trying to enter any open door; thought process can be goal directed, but also tangential; Thought content is on various things, some delusional thoughts; denies any SI/HI. Denies AVH; Patients insight and judgment impaired. Diagnostics Vital Signs (24Hr): Vital Signs - 24 hr 06/08/24 20:00 06/09/24 08:00 Temperature 98.5 F 96.8 F Pulse Rate 104 H 116 H Respiratory Rate 1 L 18 Blood Pressure 139/89 122/74 Pulse Oximetry 96 96 Oxygen Delivery Method Room Air Room Air BMI result Body Mass Index 29.5 Labs 06/02/24 16:41 06/03/24 13:51 Labs: Laboratory Results - last 48 hr 06/08/24 06/08/24 06/09/24 19:18 19:19 11:11 Magnesium 2.0 Vitamin B12 517 Folate 11.9 TSH 2.23 Urine Color Yellow Urine Appearance Clear Urine pH 6.5 Ur Specific [place] 1.010 Urine Protein Negative Urine Glucose (UA) Negative Urine Ketones Negative Urine Blood Negative Urine Nitrite Negative Ur Leukocyte Esterase Small (1+) H Urine RBC 0-2 Urine WBC 0-5 Ur Squamous Epith Cells 0-2 Urine Bacteria None Seen Hyaline Casts 0-2 T.pallidum Ab (EIA) Nonreactive HIV 1&2 Ab/P24 Ag 4thGn Nonreactive Imaging Radiology Impressions: ITS Impressions Head CT 06/09/24 11:20 IMPRESSION: 1. No evidence of acute intracranial hemorrhage or edematous territorial infarction. 2. Mild underlying microangiopathy. Medications Medications Current Medications Al Hydroxide/Mg Hydroxide (Magnesium Hydrox/Alum Hydrox 30 Ml Oral.Susp) 30 ml PO Q6H PRN PRN Reason: Heartburn/Nausea Albuterol Sulfate (Albuterol Sulfate 90 Mcg 8 Gm Inhaler) 2 puff INHALE Q4H PRN PRN Reason: Wheezing Last Admin: 06/09/24 15:39 Dose: 2 puff Amlodipine Besylate (Amlodipine Besylate 2.5 Mg Tablet) 2.5 mg PO DAILY [facility]; Protocol Last Admin: 06/09/24 08:15 Dose: 2.5 mg Artificial Tears (Artificial Tears 15 Ml Drops) 1 drop EYE-BOTH Q4H PRN PRN Reason: Dry Eyes Last Admin: 06/09/24 15:39 Dose: 1 drop Aspirin (Aspirin Enteric Coated 81 Mg Tablet.) 81 mg PO DAILY [facility] Last Admin: 06/09/24 08:15 Dose: 81 mg Atorvastatin Calcium (Atorvastatin Calcium 40 Mg Tablet) 40 mg PO BEDTIME [facility] Last Admin: 06/08/24 20:10 Dose: 40 mg Benztropine Mesylate (Benztropine Mesylate 0.5 Mg Tablet) 0.5 mg PO BID [facility] Last Admin: 06/09/24 08:15 Dose: 0.5 mg Clonazepam (Clonazepam 0.5 Mg Tablet) 0.5 mg PO BID [facility] Last Admin: 06/09/24 08:16 Dose: 0.5 mg Ezetimibe (Ezetimibe 10 Mg Tablet) 10 mg PO DAILY [facility] Last Admin: 06/09/24 08:15 Dose: 10 mg Ferrous Sulfate (Ferrous Sulfate 324 Mg Tablet.) 324 mg PO DAILY [facility] Last Admin: 06/09/24 08:15 Dose: 324 mg Folic Acid (Folic Acid 1 Mg Tablet) 1 mg PO DAILY [facility] Last Admin: 06/09/24 08:16 Dose: 1 mg Hydroxyzine HCl (Hydroxyzine Hcl 25 Mg Tablet) 25 mg PO Q6H PRN PRN Reason: Anxiety Last Admin: 06/08/24 23:46 Dose: 25 mg Magnesium Hydroxide (Milk Of Magnesia 30 Ml Oral.Susp) 30 ml PO DAILY PRN PRN Reason: Constipation Metoprolol Succinate (Metoprolol Succinate Er 25 Mg Tab.Er.24h) 25 mg PO DAILY [facility]; Protocol Last Admin: 06/09/24 08:16 Dose: 25 mg Mirtazapine (Mirtazapine 30 Mg Tablet) 30 mg PO BEDTIME [facility] Last Admin: 06/08/24 20:10 Dose: 30 mg Nicotine Polacrilex (Nicotine Polacrilex 2 Mg Gum) 4 mg BUCCAL Q2H PRN PRN Reason: Nicotine Cravings Last Admin: 06/09/24 08:29 Dose: 4 mg Nicotine Polacrilex (Nicotine Polacrilex 2 Mg Gum) 4 mg BUCCAL Q2H PRN PRN Reason: Nicotine Cravings Last Admin: 06/05/24 21:42 Dose: 4 mg Olanzapine (Olanzapine 5 Mg Tablet) 5 mg PO Q4H PRN PRN Reason: psychosis, agitation Last Admin: 06/09/24 13:58 Dose: 5 mg Omeprazole (Omeprazole 20 Mg Capsule.Dr) 20 mg PO DAILY@0630 [facility] Last Admin: 06/09/24 07:09 Dose: 20 mg Risperidone (Risperidone 0.5 Mg Tablet) 0.5 mg PO Q4H PRN PRN Reason: AH Last Admin: 06/08/24 03:34 Dose: 0.5 mg Risperidone (Risperidone 3 Mg Tablet) 3 mg PO BID [facility] Last Admin: 06/09/24 08:15 Dose: 3 mg Thiamine HCl (Thiamine Hcl 100 Mg Tablet) 100 mg PO DAILY [facility] Last Admin: 06/09/24 08:15 Dose: 100 mg Trazodone HCl (Trazodone Hcl 100 Mg Tablet) 100 mg PO BEDTIME [facility] Last Admin: 06/08/24 20:10 Dose: 100 mg Allergies Allergies Allergy/AdvReac Type Severity Reaction Status Date / Time acetaminophen Allergy Unknown PANADOL = Verified 06/02/24 16:01 ACETAMINOPHEN SHELLFISH Allergy Mild PATIENT Uncoded 06/02/24 16:01 REPORTS BURNING SENSATION THROUGHOUT OPIATES Allergy Unknown BECAME Uncoded 06/02/24 16:01 ADDICTED PANADOL Allergy Unknown UNKNOWN Uncoded 06/02/24 16:01 Assessment & Plan Assessment & Plan (1) Schizoaffective disorder: Qualifiers: Schizoaffective disorder type: unspecified Qualified Code(s): F25.9 - Schizoaffective disorder, unspecified Status: Acute Code(s): F25.9 - Schizoaffective disorder, unspecified (2) Intellectual delay: Status: Acute Code(s): F81.9 - Developmental disorder of scholastic skills, unspecified (3) CAD (coronary artery disease): Status: Acute Code(s): I25.10 - Atherosclerotic heart disease of platinum coronary artery without angina pectoris Plan Patient 59 yr old Chinese-speaking male with schizoaffective disorder, cognitive delay, who lives with his mother, recently discharged from on 05/20/2024 who presents via family for increased paranoia, anger and confusion. At last admission there was the thought that patient was not taking all of his medications, since the bulk of his Risperdal was prescribed at bedtime and the [facility] only came in the morning. During this last admission, Risperdal changed so that he was taking the bulk of it in the morning and with VNA, seems he is taking his medications. Despite this, family reports that his behaviors are worsening. On the unit he is friendly and calm; he is confused saying he wants to go see his children, caring a pillow in his arms and calling it his baby. Formulation/clinical reasoning: It is not clear what is causing decline given that he is most likely taking his medications regularly. Some speculation that he might be abusing substance when out and about in neighborhood however UDS is negative. Setting up family meeting to discuss. Hospital course: 06/05 Patient denies any AH to television script writer. Denies any SI or HI and says I never look for problems... I am never aggressive... I am good... Although he denies AH, patient says there is too much noise on the unit, and that people are touching his face. Earlier he had told another staff that he was having AH to hurt himself but that he was able to ignore. Patient denies any current drug use; he adds that he used to live on the streets but now he goes to [facility]. Laboratory Tester asked about why he had been carrying a pillow around calling it his baby; patient did not really answer but said that he has a son and a granddaughter and that his is . Patient said he wanted to go home but then agreed to wait for meeting with outpatient staff this next Saturday. -patient does seem more confused than he did at last admission. Will increase Risperdal 06/08 Patient remains disorganized, able to be goal-directed on some topics such as wanting is close but otherwise trying to enter in any open door he sees and needing frequent redirection. SW and television script writer Discussed case with outpt team: Efraín Gray, SHIMA Glaser DDS Marlyn Brennan [place] No one is sure why patient has decompensated after decades of remaining stable on Risperdal. Says that for some reason this past month he has been more paranoid, more disorganized and when he returned from last admission he was not quite back to baseline. The past weeks patient was given away clothing on the street. This past admission was following patient argument with a neighbor. Apparently he had been peeking into this neighbor's window, scaring the neighbor and scared the neighbor's kids. They had a verbal altercation; staff arrived and patient kept saying he was going to go over to the neighbor's and take care of the neighbor... No actual threat was made and patient has no history of aggression but because of this he was taken to the hospital. Bret has discussed eviction of both patient and his elderly mother if behaviors continue. Team wondered if patient was not taking his medications however television script writer explained that the bulk of his medications were switched so the [facility]NA was giving him the 3 mg of Risperdal out of the 3.5 total daily dose making this less likely the issue. They say at baseline he paces and is anxious but he pretty much make sense and though he may say some delusional things his conversations are overall able to remain grounded in reality. Discussed various options including temporary housing and likelihood that patient will at some point in the near future need some type of group living arrangement as his mother is elderly and with some dementia Unclear why patient has decompensated; Increased Risperdal to see if that can help. Thus far no clear organic etiology; will get additional labs to trying rule out other possible causes, including HIV and RPR, magnesium, B12/folate; will likely get head CT, though anticipate that results will be unremarkable. UDS was negative and UA showed no bacterial growth. Will try to get more collateral from family 06/09 Patient remains confused and disorganized, jumping from topic to topic. He agrees to remain to have meeting on Saturday but otherwise says he is missing home. Patient denies any chest pain but passes hard to say that he has a heart condition and has a surgically implanted mesh. Patient starts to cry and says that people are laughing at him that he can hear them doing so; he also said that a staff person's came in to his room last night and choked. Patient started taking should often group today. Looking for any organic contribution to patient's decompensation, however: labs thus far unremarkable; magnesium/calcium WNL; electrolytes WNL Chest x-ray pending Repeat UA unremarkable; no evidence of UTI -Head CT however did show evidence of Mild underlying microangiopathy Which could indicate vascular dementia as a possible contribution, which does seem to worsen in a stepwise fashion Will continue with current medication regimen; if no improvement will consider switching to Zyprexa which is on the [place] order. PLAN: CV Guardian 1:1 for accidental intrusiveness to others and needing to be redirected Increased to risperidone 3 mg b.i.d. (was total daily dose of 3.5mg as outpt) Mirtazapine 30 mg PO BEDTIME [facility] Benztropine Mesylate 0.5 mg PO BID [facility] Clonazepam 0.5 mg PO BID [facility] Omeprazole 20 mg PO DAILY@0630 [facility] Albuterol Sulfate 2 puff INHALE Q4H PRN Amlodipine Besylate 2.5 mg PO DAILY [facility]; Protocol Artificial Tears 1 drop EYE-BOTH Q4H PRN Aspirin 81 mg PO DAILY [facility] Atorvastatin Calcium 40 mg PO BEDTIME [facility] Ezetimibe 10 mg PO DAILY [facility] Ferrous Sulfate 324 mg PO DAILY [facility] Folic Acid 1 mg PO DAILY [facility] Hydroxyzine HCl 25 mg PO Q6H PRN Metoprolol Succinate 25 mg PO DAILY [facility]; Protocol Thiamine HCl 100 mg PO DAILY [facility] Trazodone HCl [address] [facility] effective to March 26, 2025: Risperdal up to 10mg daily (primary) Geodon up to 60mg daily Zyprexa up to 25mg daily later in evening pt complained of right sided chest pain; vitals WNL and pt not in any distress but given hx for CAD ordered EKG and trop Patient educated on: diagnosis Informed Consent: does not understand Reason for continued inpatient stay Substantial Risk for: inability to function Time Spent With Patient Time: Total time managing care of this patient today ____ minutes.
[2024-06-09] MEDS: hydrOXYzine HCL 25 MG TABLET PO (16:21)
[2024-06-09] MEDS: Magnesium Hydrox/Alum Hydrox 30 ML ORAL.SUSP PO (16:21)
[2024-06-09 20:00] VITALS: BP 116/62; PULSE 93; RESP 16; TEMP 36.9; O2SAT 97
[2024-06-09] MEDS: Atorvastatin Calcium 40 MG TABLET PO (20:05)
[2024-06-09] MEDS: Mirtazapine 30 MG TABLET PO (20:05)
[2024-06-09] MEDS: traZODone HCL 100 MG TABLET PO (20:05)
[2024-06-10] MEDS: OLANZapine 5 MG TABLET PO ×3 (04:43→21:05)
[2024-06-10] MEDS: Nicotine Polacrilex 2 MG GUM 4 MG BUCCAL ×2 (04:48→13:31)
[2024-06-10] MEDS: Omeprazole 20 MG CAPSULE.DR PO (06:14)
[2024-06-10] MEDS: hydrOXYzine HCL 25 MG TABLET PO (06:16)
[2024-06-10] MEDS: risperiDONE 0.5 MG TABLET PO (06:16)
[2024-06-10 08:00] VITALS: BP 135/75; PULSE 100; RESP 18; TEMP 37.2; O2SAT 97
[2024-06-10] MEDS: Ferrous Sulfate 324 MG TABLET.DR PO (08:59)
[2024-06-10] MEDS: risperiDONE 3 MG TABLET PO ×2 (08:59→21:05)
[2024-06-10] MEDS: Benztropine Mesylate 0.5 MG TABLET PO ×2 (08:59→21:05)
[2024-06-10] MEDS: Thiamine HCL 100 MG TABLET PO (08:59)
[2024-06-10] MEDS: amLODIPine Besylate 2.5 MG TABLET PO (09:00)
[2024-06-10] MEDS: Metoprolol Succinate ER 25 MG TAB.ER.24H PO (09:00)
[2024-06-10] MEDS: clonazePAM 0.5 MG TABLET PO ×2 (09:00→21:05)
[2024-06-10] MEDS: Folic Acid 1 MG TABLET PO (09:00)
[2024-06-10] MEDS: Ezetimibe 10 MG TABLET PO (09:00)
[2024-06-10] MEDS: Aspirin Enteric Coated 81 MG TABLET.DR PO (09:00)
[2024-06-10] MEDS: Albuterol Sulfate 90 MCG 8 GM INHALER 2 PUFF INHALE ×2 (13:29→21:16)
[2024-06-10] MEDS: Artificial Tears 15 ML DROPS 1 DROP EYE-BOTH ×2 (13:30→21:11)
[2024-06-10] MEDS: Magnesium Hydrox/Alum Hydrox 30 ML ORAL.SUSP PO (15:28)
--- NOTE | 2024-06-10 15:58 | HO.PSYCHPN ---
Subjective Subjective Date of Service: 06/10/24 Reason For Visit: Dysregulated Interim History: pt seen chart reviewed remains intrusive and agitated Mental Status Exam Mental Status Exam Narrative: Pt is alert and oriented; behavior is more restless, wandering, accidentally intrusive, disorganized; can also be cooperative, and is always overly friendly; remains able to be easily redirected; patient is not in distress; dressed in hospital l attire, scruffy with adequate hygiene; mood is described as good and but affect is constricted and patient sometimes tearful; eye contact appropriate; Speech is normal rate, volume and prosody and not pressured; moderate psychomotor agitation present as he keeps pacing, trying to enter any open door; thought process can be goal directed, but also tangential; Thought content is on various things, some delusional thoughts; denies any SI/HI. Denies AVH; Patients insight and judgment impaired. Diagnostics Vital Signs (24Hr): Vital Signs - 24 hr 06/09/24 20:00 06/10/24 08:00 Temperature 98.4 F 98.9 F Pulse Rate 93 100 Respiratory Rate 16 18 Blood Pressure 116/62 135/75 Pulse Oximetry 97 97 Oxygen Delivery Method Room Air BMI result Body Mass Index 29.5 Labs 06/25/24 07:51 06/29/24 07:58 Labs: Laboratory Results - last 48 hr 06/08/24 06/08/24 06/09/24 19:18 19:19 11:11 Magnesium 2.0 Vitamin B12 517 Folate 11.9 TSH 2.23 Urine Color Yellow Urine Appearance Clear Urine pH 6.5 Ur Specific [place] 1.010 Urine Protein Negative Urine Glucose (UA) Negative Urine Ketones Negative Urine Blood Negative Urine Nitrite Negative Ur Leukocyte Esterase Small (1+) H Urine RBC 0-2 Urine WBC 0-5 Ur Squamous Epith Cells 0-2 Urine Bacteria None Seen Hyaline Casts 0-2 T.pallidum Ab (EIA) Nonreactive HIV 1&2 Ab/P24 Ag 4thGn Nonreactive Imaging Radiology Impressions: ITS Impressions Chest X-Ray 06/09/24 10:55 IMPRESSION: No acute process. Mild hyperinflation. Head CT 06/09/24 11:20 IMPRESSION: 1. No evidence of acute intracranial hemorrhage or edematous territorial infarction. 2. Mild underlying microangiopathy. Medications Medications Current Medications Al Hydroxide/Mg Hydroxide (Magnesium Hydrox/Alum Hydrox 30 Ml Oral.Susp) 30 ml PO Q6H PRN PRN Reason: Heartburn/Nausea Last Admin: 06/10/24 15:28 Dose: 30 ml Albuterol Sulfate (Albuterol Sulfate 90 Mcg 8 Gm Inhaler) 2 puff INHALE Q4H PRN PRN Reason: Wheezing Last Admin: 06/10/24 13:29 Dose: 2 puff Amlodipine Besylate (Amlodipine Besylate 2.5 Mg Tablet) 2.5 mg PO DAILY [facility]; Protocol Last Admin: 06/10/24 09:00 Dose: 2.5 mg Artificial Tears (Artificial Tears 15 Ml Drops) 1 drop EYE-BOTH Q4H PRN PRN Reason: Dry Eyes Last Admin: 06/10/24 13:30 Dose: 1 drop Aspirin (Aspirin Enteric Coated 81 Mg Tablet.) 81 mg PO DAILY [facility] Last Admin: 06/10/24 09:00 Dose: 81 mg Atorvastatin Calcium (Atorvastatin Calcium 40 Mg Tablet) 40 mg PO BEDTIME [facility] Last Admin: 06/09/24 20:05 Dose: 40 mg Benztropine Mesylate (Benztropine Mesylate 0.5 Mg Tablet) 0.5 mg PO BID [facility] Last Admin: 06/10/24 08:59 Dose: 0.5 mg Clonazepam (Clonazepam 0.5 Mg Tablet) 0.5 mg PO BID [facility] Last Admin: 06/10/24 09:00 Dose: 0.5 mg Ezetimibe (Ezetimibe 10 Mg Tablet) 10 mg PO DAILY [facility] Last Admin: 06/10/24 09:00 Dose: 10 mg Ferrous Sulfate (Ferrous Sulfate 324 Mg Tablet.) 324 mg PO DAILY [facility] Last Admin: 06/10/24 08:59 Dose: 324 mg Folic Acid (Folic Acid 1 Mg Tablet) 1 mg PO DAILY [facility] Last Admin: 06/10/24 09:00 Dose: 1 mg Hydroxyzine HCl (Hydroxyzine Hcl 25 Mg Tablet) 25 mg PO Q6H PRN PRN Reason: Anxiety Last Admin: 06/10/24 06:16 Dose: 25 mg Magnesium Hydroxide (Milk Of Magnesia 30 Ml Oral.Susp) 30 ml PO DAILY PRN PRN Reason: Constipation Metoprolol Succinate (Metoprolol Succinate Er 25 Mg Tab.Er.24h) 25 mg PO DAILY [facility]; Protocol Last Admin: 06/10/24 09:00 Dose: 25 mg Mirtazapine (Mirtazapine 30 Mg Tablet) 30 mg PO BEDTIME [facility] Last Admin: 06/09/24 20:05 Dose: 30 mg Nicotine Polacrilex (Nicotine Polacrilex 2 Mg Gum) 4 mg BUCCAL Q2H PRN PRN Reason: Nicotine Cravings Last Admin: 06/10/24 13:31 Dose: 4 mg Nicotine Polacrilex (Nicotine Polacrilex 2 Mg Gum) 4 mg BUCCAL Q2H PRN PRN Reason: Nicotine Cravings Last Admin: 06/05/24 21:42 Dose: 4 mg Olanzapine (Olanzapine 5 Mg Tablet) 5 mg PO Q4H PRN PRN Reason: psychosis, agitation Last Admin: 06/10/24 15:01 Dose: 5 mg Omeprazole (Omeprazole 20 Mg Capsule.Dr) 20 mg PO DAILY@0630 [facility] Last Admin: 06/10/24 06:14 Dose: 20 mg Risperidone (Risperidone 0.5 Mg Tablet) 0.5 mg PO Q4H PRN PRN Reason: AH Last Admin: 06/10/24 06:16 Dose: 0.5 mg Risperidone (Risperidone 3 Mg Tablet) 3 mg PO BID [facility] Last Admin: 06/10/24 08:59 Dose: 3 mg Thiamine HCl (Thiamine Hcl 100 Mg Tablet) 100 mg PO DAILY [facility] Last Admin: 06/10/24 08:59 Dose: 100 mg Trazodone HCl (Trazodone Hcl 100 Mg Tablet) 100 mg PO BEDTIME [facility] Last Admin: 06/09/24 20:05 Dose: 100 mg Allergies Allergies Allergy/AdvReac Type Severity Reaction Status Date / Time acetaminophen Allergy Unknown PANADOL = Verified 06/02/24 16:01 ACETAMINOPHEN SHELLFISH Allergy Mild PATIENT Uncoded 06/02/24 16:01 REPORTS BURNING SENSATION THROUGHOUT OPIATES Allergy Unknown BECAME Uncoded 06/02/24 16:01 ADDICTED PANADOL Allergy Unknown UNKNOWN Uncoded 06/02/24 16:01 Assessment & Plan Assessment & Plan (1) Schizoaffective disorder: Qualifiers: Schizoaffective disorder type: unspecified Qualified Code(s): F25.9 - Schizoaffective disorder, unspecified Status: Acute Code(s): F25.9 - Schizoaffective disorder, unspecified (2) Intellectual delay: Status: Acute Code(s): F81.9 - Developmental disorder of scholastic skills, unspecified (3) CAD (coronary artery disease): Status: Acute Code(s): I25.10 - Atherosclerotic heart disease of [place] coronary artery without angina pectoris Plan Patient 59 yr old Estonian-speaking male with schizoaffective disorder, cognitive delay, who lives with his mother, recently discharged from on 05/20/2024 who presents via family for increased paranoia, anger and confusion. At last admission there was the thought that patient was not taking all of his medications, since the bulk of his Risperdal was prescribed at bedtime and the [facility] only came in the morning. During this last admission, Risperdal changed so that he was taking the bulk of it in the morning and with VNA, seems he is taking his medications. Despite this, family reports that his behaviors are worsening. On the unit he is friendly and calm; he is confused saying he wants to go see his children, caring a pillow in his arms and calling it his baby. Formulation/clinical reasoning: It is not clear what is causing decline given that he is most likely taking his medications regularly. Some speculation that he might be abusing substance when out and about in neighborhood however UDS is negative. Setting up family meeting to discuss. Hospital course: 06/05 Patient denies any AH to ad copy writer. Denies any SI or HI and says I never look for problems... I am never aggressive... I am good... Although he denies AH, patient says there is too much noise on the unit, and that people are touching his face. Earlier he had told another staff that he was having AH to hurt himself but that he was able to ignore. Patient denies any current drug use; he adds that he used to live on the streets but now he goes to [facility] Nurse asked about why he had been carrying a pillow around calling it his baby; patient did not really answer but said that he has a son and a granddaughter and that his is . Patient said he wanted to go home but then agreed to wait for meeting with outpatient staff this next Saturday. -patient does seem more confused than he did at last admission. Will increase Risperdal 06/08 Patient remains disorganized, able to be goal-directed on some topics such as wanting is close but otherwise trying to enter in any open door he sees and needing frequent redirection. SW and ad copy writer Discussed case with outpt team: Efraín Gray DDS Nimisha Glaser DDS Marlyn HOOVER CM No one is sure why patient has decompensated after decades of remaining stable on Risperdal. Says that for some reason this past month he has been more paranoid, more disorganized and when he returned from last admission he was not quite back to baseline. The past weeks patient was given away clothing on the street. This past admission was following patient argument with a neighbor. Apparently he had been peeking into this neighbor's window, scaring the neighbor and scared the neighbor's kids. They had a verbal altercation; staff arrived and patient kept saying he was going to go over to the neighbor's and take care of the neighbor... No actual threat was made and patient has no history of aggression but because of this he was taken to the hospital. Bret has discussed eviction of both patient and his elderly mother if behaviors continue. Team wondered if patient was not taking his medications however ad copy writer explained that the bulk of his medications were switched so the [facility]NA was giving him the 3 mg of Risperdal out of the 3.5 total daily dose making this less likely the issue. They say at baseline he paces and is anxious but he pretty much make sense and though he may say some delusional things his conversations are overall able to remain grounded in reality. Discussed various options including temporary housing and likelihood that patient will at some point in the near future need some type of group living arrangement as his mother is elderly and with some dementia Unclear why patient has decompensated; Increased Risperdal to see if that can help. Thus far no clear organic etiology; will get additional labs to trying rule out other possible causes, including HIV and RPR, magnesium, B12/folate; will likely get head CT, though anticipate that results will be unremarkable. UDS was negative and UA showed no bacterial growth. Will try to get more collateral from family 06/09 Patient remains confused and disorganized, jumping from topic to topic. He agrees to remain to have meeting on Saturday but otherwise says he is missing home. Patient denies any chest pain but passes hard to say that he has a heart condition and has a surgically implanted mesh. Patient starts to cry and says that people are laughing at him that he can hear them doing so; he also said that a staff person's came in to his room last night and choked. Patient started taking should often group today. 06/10/24 cont plan of care Looking for any organic contribution to patient's decompensation, however: labs thus far unremarkable; magnesium/calcium WNL; electrolytes WNL Chest x-ray pending Repeat UA unremarkable; no evidence of UTI -Head CT however did show evidence of Mild underlying microangiopathy Which could indicate vascular dementia as a possible contribution, which does seem to worsen in a stepwise fashion Will continue with current medication regimen; if no improvement will consider switching to Zyprexa which is on the [place] order. PLAN: CV Guardian 1:1 for accidental intrusiveness to others and needing to be redirected Increased to risperidone 3 mg b.i.d. (was total daily dose of 3.5mg as outpt) Mirtazapine 30 mg PO BEDTIME [facility] Benztropine Mesylate 0.5 mg PO BID [facility] Clonazepam 0.5 mg PO BID [facility] Omeprazole 20 mg PO DAILY@0630 [facility] Albuterol Sulfate 2 puff INHALE Q4H PRN Amlodipine Besylate 2.5 mg PO DAILY [facility]; Protocol Artificial Tears 1 drop EYE-BOTH Q4H PRN Aspirin 81 mg PO DAILY [facility] Atorvastatin Calcium 40 mg PO BEDTIME [facility] Ezetimibe 10 mg PO DAILY [facility] Ferrous Sulfate 324 mg PO DAILY [facility] Folic Acid 1 mg PO DAILY [facility] Hydroxyzine HCl 25 mg PO Q6H PRN Metoprolol Succinate 25 mg PO DAILY [facility]; Protocol Thiamine HCl 100 mg PO DAILY [facility] Trazodone HCl 100 mg PO BEDTIME [facility] effective to March 26, 2025: Risperdal up to 10mg daily (primary) Geodon up to 60mg daily Zyprexa up to 25mg daily later in evening pt complained of right sided chest pain; vitals WNL and pt not in any distress but given hx for CAD ordered EKG and trop Reason for continued inpatient stay Substantial Risk for: inability to function and rapid decompensation Time Spent With Patient Time: Total time managing care of this patient today ____ minutes.
[2024-06-10 17:25] VITALS: BP 130/77; PULSE 96; RESP 18; TEMP 36.3; O2SAT 97
--- NOTE | 2024-06-10 18:26 | ECG_ITS ---
Test Reason : chest pain Blood Pressure : / mmHG Vent. Rate : 089 BPM Atrial Rate : 089 BPM P-R Int : 138 ms QRS Dur : 082 ms QT Int : 402 ms P-R-T Axes : 052 040 040 degrees QTc Int : 489 ms Normal sinus rhythm Minimal voltage criteria for LVH, may be normal variant ( Sokolow-Fisher ) Inferior infarct (cited on or before 21-APR-2020) Abnormal ECG When compared with ECG of 05-JUN-2024 21:49, No significant changes seen Referred By: Scar Recinos Electronically Signed By:SHERICE PANG
[2024-06-10 20:00] VITALS: BP 136/89; PULSE 91; RESP 16; TEMP 36.2; O2SAT 97
[2024-06-10] MEDS: traZODone HCL 100 MG TABLET PO (21:05)
[2024-06-10] MEDS: Atorvastatin Calcium 40 MG TABLET PO (21:05)
[2024-06-10] MEDS: Mirtazapine 30 MG TABLET PO (21:05)
[2024-06-11] MEDS: OLANZapine 5 MG TABLET PO ×3 (04:30→22:07)
[2024-06-11] MEDS: Artificial Tears 15 ML DROPS 1 DROP EYE-BOTH ×2 (04:32→14:41)
[2024-06-11] MEDS: Omeprazole 20 MG CAPSULE.DR PO (06:24)
[2024-06-11] MEDS: Magnesium Hydrox/Alum Hydrox 30 ML ORAL.SUSP PO ×2 (06:25→22:07)
[2024-06-11] MEDS: Nicotine Polacrilex 2 MG GUM 4 MG BUCCAL ×2 (06:25→14:07)
[2024-06-11 08:00] VITALS: BP 132/74; PULSE 88; RESP 18; TEMP 36.9; O2SAT 96
[2024-06-11] MEDS: risperiDONE 3 MG TABLET PO ×2 (08:50→21:02)
[2024-06-11] MEDS: Ezetimibe 10 MG TABLET PO (08:50)
[2024-06-11] MEDS: amLODIPine Besylate 2.5 MG TABLET PO (08:50)
[2024-06-11] MEDS: Aspirin Enteric Coated 81 MG TABLET.DR PO (08:50)
[2024-06-11] MEDS: Metoprolol Succinate ER 25 MG TAB.ER.24H PO (08:50)
[2024-06-11] MEDS: Folic Acid 1 MG TABLET PO (08:50)
[2024-06-11] MEDS: Ferrous Sulfate 324 MG TABLET.DR PO (08:50)
[2024-06-11] MEDS: clonazePAM 0.5 MG TABLET PO ×2 (08:51→21:00)
[2024-06-11] MEDS: Benztropine Mesylate 0.5 MG TABLET PO ×2 (08:51→21:01)
[2024-06-11] MEDS: Thiamine HCL 100 MG TABLET PO (08:51)
--- NOTE | 2024-06-11 10:56 | HO.PSYCHPN ---
Subjective Subjective Date of Service: 06/11/24 Reason For Visit: Dysregulated Interim History: Met with patient; discussed with team; reviewed chart Patient remains disorganized, delusional. Dye Winch Operator another staff person saying it was his son; telling public relations writer he is going up by public relations writer a car, telling other staff members the same. Saying he has to go downstairs and feed the baby... Review of chart shows that patient has been getting Zyprexa p.r.n. consistently which seems to subdue patients agitation for a bit however but has thus far not helped resolve psychotic symptoms. 06/07 total daily dose 5 mg 06/08 15 mg 06/09 10 mg 06/10 15 mg 06/11 5 mg Mental Status Exam Mental Status Exam Narrative: Pt is alert and oriented; behavior is more restless, wandering, accidentally intrusive, disorganized; can also be cooperative, and is always overly friendly; remains able to be easily redirected; patient is not in distress; dressed in hospital l attire, scruffy with adequate hygiene; mood is described as good and but affect is constricted and patient sometimes tearful; eye contact appropriate; Speech is normal rate, volume and prosody and not pressured; moderate psychomotor agitation present as he keeps pacing, trying to enter any open door; thought process can be goal directed, but also tangential; Thought content is on various things, some delusional thoughts; denies any SI/HI. Denies AVH; Patients insight and judgment impaired. Diagnostics Vital Signs (24Hr): Vital Signs - 24 hr 06/10/24 17:25 06/10/24 20:00 06/11/24 08:00 Temperature 97.3 F 97.2 F 98.4 F Pulse Rate 96 91 88 Respiratory Rate 18 16 18 Blood Pressure 130/77 136/89 132/74 Pulse Oximetry 97 97 96 Oxygen Delivery Method Room Air Room Air BMI result Body Mass Index 29.5 Labs 06/02/24 16:41 06/03/24 13:51 Labs: Laboratory Results - last 48 hr 06/08/24 06/09/24 19:19 11:11 Urine Color Yellow Urine Appearance Clear Urine pH 6.5 Ur Specific Oblong 1.010 Urine Protein Negative Urine Glucose (UA) Negative Urine Ketones Negative Urine Blood Negative Urine Nitrite Negative Ur Leukocyte Esterase Small (1+) H Urine RBC 0-2 Urine WBC 0-5 Ur Squamous Epith Cells 0-2 Urine Bacteria None Seen Hyaline Casts 0-2 HIV 1&2 Ab/P24 Ag 4thGn Nonreactive Imaging Radiology Impressions: ITS Impressions Chest X-Ray 06/09/24 10:55 IMPRESSION: No acute process. Mild hyperinflation. Head CT 06/09/24 11:20 IMPRESSION: 1. No evidence of acute intracranial hemorrhage or edematous territorial infarction. 2. Mild underlying microangiopathy. Medications Medications Current Medications Al Hydroxide/Mg Hydroxide (Magnesium Hydrox/Alum Hydrox 30 Ml Oral.Susp) 30 ml PO Q6H PRN PRN Reason: Heartburn/Nausea Last Admin: 06/11/24 06:25 Dose: 30 ml Albuterol Sulfate (Albuterol Sulfate 90 Mcg 8 Gm Inhaler) 2 puff INHALE Q4H PRN PRN Reason: Wheezing Last Admin: 06/10/24 21:16 Dose: 2 puff Amlodipine Besylate (Amlodipine Besylate 2.5 Mg Tablet) 2.5 mg PO DAILY [facility]; Protocol Last Admin: 06/11/24 08:50 Dose: 2.5 mg Artificial Tears (Artificial Tears 15 Ml Drops) 1 drop EYE-BOTH Q4H PRN PRN Reason: Dry Eyes Last Admin: 06/11/24 04:32 Dose: 1 drop Aspirin (Aspirin Enteric Coated 81 Mg Tablet.) 81 mg PO DAILY [facility] Last Admin: 06/11/24 08:50 Dose: 81 mg Atorvastatin Calcium (Atorvastatin Calcium 40 Mg Tablet) 40 mg PO BEDTIME [facility] Last Admin: 06/10/24 21:05 Dose: 40 mg Benztropine Mesylate (Benztropine Mesylate 0.5 Mg Tablet) 0.5 mg PO BID [facility] Last Admin: 06/11/24 08:51 Dose: 0.5 mg Clonazepam (Clonazepam 0.5 Mg Tablet) 0.5 mg PO BID [facility] Last Admin: 06/11/24 08:51 Dose: 0.5 mg Ezetimibe (Ezetimibe 10 Mg Tablet) 10 mg PO DAILY [facility] Last Admin: 06/11/24 08:50 Dose: 10 mg Ferrous Sulfate (Ferrous Sulfate 324 Mg Tablet.) 324 mg PO DAILY [facility] Last Admin: 06/11/24 08:50 Dose: 324 mg Folic Acid (Folic Acid 1 Mg Tablet) 1 mg PO DAILY [facility] Last Admin: 06/11/24 08:50 Dose: 1 mg Hydroxyzine HCl (Hydroxyzine Hcl 25 Mg Tablet) 25 mg PO Q6H PRN PRN Reason: Anxiety Last Admin: 06/10/24 06:16 Dose: 25 mg Magnesium Hydroxide (Milk Of Magnesia 30 Ml Oral.Susp) 30 ml PO DAILY PRN PRN Reason: Constipation Metoprolol Succinate (Metoprolol Succinate Er 25 Mg Tab.Er.24h) 25 mg PO DAILY [facility]; Protocol Last Admin: 06/11/24 08:50 Dose: 25 mg Mirtazapine (Mirtazapine 30 Mg Tablet) 30 mg PO BEDTIME [facility] Last Admin: 06/10/24 21:05 Dose: 30 mg Nicotine Polacrilex (Nicotine Polacrilex 2 Mg Gum) 4 mg BUCCAL Q2H PRN PRN Reason: Nicotine Cravings Last Admin: 06/11/24 06:25 Dose: 4 mg Nicotine Polacrilex (Nicotine Polacrilex 2 Mg Gum) 4 mg BUCCAL Q2H PRN PRN Reason: Nicotine Cravings Last Admin: 06/05/24 21:42 Dose: 4 mg Olanzapine (Olanzapine 5 Mg Tablet) 5 mg PO Q4H PRN PRN Reason: psychosis, agitation Last Admin: 06/11/24 04:30 Dose: 5 mg Omeprazole (Omeprazole 20 Mg Capsule.Dr) 20 mg PO DAILY@0630 [facility] Last Admin: 06/11/24 06:24 Dose: 20 mg Risperidone (Risperidone 0.5 Mg Tablet) 0.5 mg PO Q4H PRN PRN Reason: AH Last Admin: 06/10/24 06:16 Dose: 0.5 mg Risperidone (Risperidone 3 Mg Tablet) 3 mg PO BID [facility] Last Admin: 06/11/24 08:50 Dose: 3 mg Thiamine HCl (Thiamine Hcl 100 Mg Tablet) 100 mg PO DAILY [facility] Last Admin: 06/11/24 08:51 Dose: 100 mg Trazodone HCl (Trazodone Hcl 100 Mg Tablet) 100 mg PO BEDTIME [facility] Last Admin: 06/10/24 21:05 Dose: 100 mg Allergies Allergies Allergy/AdvReac Type Severity Reaction Status Date / Time acetaminophen Allergy Unknown PANADOL = Verified 06/02/24 16:01 ACETAMINOPHEN SHELLFISH Allergy Mild PATIENT Uncoded 06/02/24 16:01 REPORTS BURNING SENSATION THROUGHOUT OPIATES Allergy Unknown BECAME Uncoded 06/02/24 16:01 ADDICTED PANADOL Allergy Unknown UNKNOWN Uncoded 06/02/24 16:01 Assessment & Plan Assessment & Plan (1) Schizoaffective disorder: Qualifiers: Schizoaffective disorder type: unspecified Qualified Code(s): F25.9 - Schizoaffective disorder, unspecified Status: Acute Code(s): F25.9 - Schizoaffective disorder, unspecified (2) Intellectual delay: Status: Acute Code(s): F81.9 - Developmental disorder of scholastic skills, unspecified (3) CAD (coronary artery disease): Status: Acute Code(s): I25.10 - Atherosclerotic heart disease of [place] coronary artery without angina pectoris Plan Patient 59 yr old [place]-speaking male with schizoaffective disorder, cognitive delay, who lives with his mother, recently discharged from on 05/20/2024 who presents via family for increased paranoia, anger and confusion. At last admission there was the thought that patient was not taking all of his medications, since the bulk of his Risperdal was prescribed at bedtime and the [facility] only came in the morning. During this last admission, Risperdal changed so that he was taking the bulk of it in the morning and with VNA, seems he is taking his medications. Despite this, family reports that his behaviors are worsening. On the unit he is friendly and calm; he is confused saying he wants to go see his children, caring a pillow in his arms and calling it his baby. Formulation/clinical reasoning: It is not clear what is causing decline given that he is most likely taking his medications regularly. Some speculation that he might be abusing substance when out and about in neighborhood however UDS is negative. Setting up family meeting to discuss. Hospital course: 06/05 Patient denies any AH to public relations writer. Denies any SI or HI and says I never look for problems... I am never aggressive... I am good... Although he denies AH, patient says there is too much noise on the unit, and that people are touching his face. Earlier he had told another staff that he was having AH to hurt himself but that he was able to ignore. Patient denies any current drug use; he adds that he used to live on the streets but now he goes to mosque. Dye Winch Operator asked about why he had been carrying a pillow around calling it his baby; patient did not really answer but said that he has a son and a granddaughter and that his is . Patient said he wanted to go home but then agreed to wait for meeting with outpatient staff this next Saturday. -patient does seem more confused than he did at last admission. Will increase Risperdal 06/08 Patient remains disorganized, able to be goal-directed on some topics such as wanting is close but otherwise trying to enter in any open door he sees and needing frequent redirection. SW and public relations writer Discussed case with outpt team: Efraín Gray, MICHAELS Nimisha Glaser DDS Marlyn HOOVER CM No one is sure why patient has decompensated after decades of remaining stable on Risperdal. Says that for some reason this past month he has been more paranoid, more disorganized and when he returned from last admission he was not quite back to baseline. The past weeks patient was given away clothing on the street. This past admission was following patient argument with a neighbor. Apparently he had been peeking into this neighbor's window, scaring the neighbor and scared the neighbor's kids. They had a verbal altercation; staff arrived and patient kept saying he was going to go over to the neighbor's and take care of the neighbor... No actual threat was made and patient has no history of aggression but because of this he was taken to the hospital. Bret has discussed eviction of both patient and his elderly mother if behaviors continue. Team wondered if patient was not taking his medications however public relations writer explained that the bulk of his medications were switched so the [facility]NA was giving him the 3 mg of Risperdal out of the 3.5 total daily dose making this less likely the issue. They say at baseline he paces and is anxious but he pretty much make sense and though he may say some delusional things his conversations are overall able to remain grounded in reality. Discussed various options including temporary housing and likelihood that patient will at some point in the near future need some type of group living arrangement as his mother is elderly and with some dementia Unclear why patient has decompensated; Increased Risperdal to see if that can help. Thus far no clear organic etiology; will get additional labs to trying rule out other possible causes, including HIV and RPR, magnesium, B12/folate; will likely get head CT, though anticipate that results will be unremarkable. UDS was negative and UA showed no bacterial growth. Will try to get more collateral from family 06/09 Patient remains confused and disorganized, jumping from topic to topic. He agrees to remain to have meeting on Saturday but otherwise says he is missing home. Patient denies any chest pain but passes hard to say that he has a heart condition and has a surgically implanted mesh. Patient starts to cry and says that people are laughing at him that he can hear them doing so; he also said that a staff person's came in to his room last night and choked. Patient started taking should often group today. Looking for any organic contribution to patient's decompensation, however: labs thus far unremarkable; magnesium/calcium WNL; electrolytes WNL Chest x-ray pending Repeat UA unremarkable; no evidence of UTI -Head CT however did show evidence of Mild underlying microangiopathy Which could indicate vascular dementia as a possible contribution, which does seem to worsen in a stepwise fashion Will continue with current medication regimen; if no improvement will consider switching to Zyprexa which is on the [facility] order. 06/11 Patient remains disorganized, delusional. Dye Winch Operator another staff person saying it was his son; telling public relations writer he is going up by public relations writer a car, telling other staff members the same. Saying he has to go downstairs and feed the baby... Review of chart shows that patient has been getting Zyprexa p.r.n. consistently which seems to subdue patients agitation for a bit however but has thus far not helped resolve psychotic symptoms. -it is unlikely that is scheduling Zyprexa will make much difference says he has gotten significant doses over the past 5 days; will leave his p.r.n. for now; however will monitor how much antipsychotic patient is getting and lower p.r.n. availability to b.i.d.. -Reviewed recent EKG and QTc Int : 489 ms which is mildly prolonged; will monitor 06/07 total daily dose 5 mg 06/08 15 mg 06/09 10 mg 06/10 15 mg 06/11 5 mg PLAN: CV Guardian 1:1 for accidental intrusiveness to others and needing to be redirected Continue risperidone 3 mg b.i.d. (was total daily dose of 3.5mg as outpt) Mirtazapine 30 mg PO BEDTIME [facility] Benztropine Mesylate 0.5 mg PO BID [facility] Clonazepam 0.5 mg PO BID [facility] Lower PRN Zyprexa 5mg to BID (Zyprexa seems to help subdue agitation but not resolve psychosis; will lower dose available given mild prolongation of QTC) Omeprazole 20 mg PO DAILY@0630 [facility] Albuterol Sulfate 2 puff INHALE Q4H PRN Amlodipine Besylate 2.5 mg PO DAILY [facility]; Protocol Artificial Tears 1 drop EYE-BOTH Q4H PRN Aspirin 81 mg PO DAILY [facility] Atorvastatin Calcium 40 mg PO BEDTIME [facility] Ezetimibe 10 mg PO DAILY [facility] Ferrous Sulfate 324 mg PO DAILY [facility] Folic Acid 1 mg PO DAILY [facility] Hydroxyzine HCl 25 mg PO Q6H PRN Metoprolol Succinate 25 mg PO DAILY [facility]; Protocol Thiamine HCl 100 mg PO DAILY [facility] Trazodone HCl 100 mg PO BEDTIME [facility] effective to March 26, 2025: Risperdal up to 10mg daily (primary) Geodon up to 60mg daily Zyprexa up to 25mg daily later in evening pt complained of right sided chest pain; vitals WNL and pt not in any distress but given hx for CAD ordered EKG and trop Patient educated on: diagnosis Informed Consent: does not understand Reason for continued inpatient stay Substantial Risk for: inability to function Time Spent With Patient Time: Total time managing care of this patient today ____ minutes.
[2024-06-11 20:00] VITALS: BP 127/72; PULSE 90; TEMP 36.9; O2SAT 98
[2024-06-11] MEDS: Atorvastatin Calcium 40 MG TABLET PO (21:00)
[2024-06-11] MEDS: Mirtazapine 30 MG TABLET PO (21:01)
[2024-06-11] MEDS: traZODone HCL 100 MG TABLET PO (21:01)
[2024-06-12] MEDS: risperiDONE 0.5 MG TABLET PO ×3 (01:57→23:50)
[2024-06-12] MEDS: hydrOXYzine HCL 25 MG TABLET PO ×3 (01:58→20:53)
[2024-06-12] MEDS: Artificial Tears 15 ML DROPS 1 DROP EYE-BOTH ×4 (02:00→23:52)
[2024-06-12] MEDS: Albuterol Sulfate 90 MCG 8 GM INHALER 2 PUFF INHALE ×3 (06:29→23:53)
[2024-06-12] MEDS: Omeprazole 20 MG CAPSULE.DR PO (07:10)
[2024-06-12 08:00] VITALS: BP 137/80; PULSE 106; RESP 18; TEMP 36.8; O2SAT 96
[2024-06-12] MEDS: Folic Acid 1 MG TABLET PO (08:16)
[2024-06-12] MEDS: Ezetimibe 10 MG TABLET PO (08:16)
[2024-06-12] MEDS: Aspirin Enteric Coated 81 MG TABLET.DR PO (08:16)
[2024-06-12 08:17] VITALS: BP 137/80
[2024-06-12] MEDS: Metoprolol Succinate ER 25 MG TAB.ER.24H PO (08:17)
[2024-06-12] MEDS: risperiDONE 3 MG TABLET PO ×2 (08:17→20:53)
[2024-06-12] MEDS: clonazePAM 0.5 MG TABLET PO (08:17)
[2024-06-12] MEDS: amLODIPine Besylate 2.5 MG TABLET PO (08:17)
[2024-06-12] MEDS: Benztropine Mesylate 0.5 MG TABLET PO ×2 (08:17→20:54)
[2024-06-12] MEDS: Thiamine HCL 100 MG TABLET PO (08:17)
[2024-06-12] MEDS: Ferrous Sulfate 324 MG TABLET.DR PO (08:17)
[2024-06-12] MEDS: Milk of Magnesia 30 ML ORAL.SUSP PO (09:33)
[2024-06-12] MEDS: Famotidine 20 MG TABLET PO (10:42)
[2024-06-12] MEDS: Ibuprofen 600 MG TABLET PO ×2 (10:42→23:50)
[2024-06-12] MEDS: OLANZapine 5 MG TABLET PO ×2 (10:42→23:50)
[2024-06-12] MEDS: Nicotine Polacrilex 2 MG GUM 4 MG BUCCAL ×2 (12:17→20:54)
--- NOTE | 2024-06-12 18:04 | P.PNPSI_ITS ---
Subjective Subjective Date of Service: 06/12/24 Reason For Visit: Dysregulated Interim History: met with patient; discussed with team remains floridly delusional, disorganized. Patient came in and out of meeting, rambling about delusional things. outpt team came to visit and reported patient is far from baseline. Reiterate that up until this past month, had remained at baseline for years. Discussed treatment plans going forward Mental Status Exam Mental Status Exam Narrative: Pt is alert and oriented; behavior is is mostly (overly) friendly however increasing restless, wandering, accidentally intrusive to peers, sometimes momentarily aggressive with peers, disorganized, typically able to be redirected. remains able to be easily redirected; patient is not in distress; dressed in hospital attire, scruffy with adequate hygiene; mood is described as good and but affect is constricted and patient sometimes tearful; eye contact appropriate; Speech is repetitive, a little pressured, normal volume and prosody; moderate psychomotor agitation present as he keeps pacing, trying to enter any open door; thought process can be goal directed, but mostly tangential and disorganized, perseverative; Thought content is on various things, mostly delusional thoughts; denies any SI/HI. Denies AVH; Patients insight and judgment impaired. Diagnostics Vital Signs (24Hr): Vital Signs - 24 hr 06/11/24 20:00 06/12/24 08:00 06/12/24 08:17 Temperature 98.5 F 98.2 F Pulse Rate 90 106 H Respiratory Rate 18 Blood Pressure 127/72 137/80 137/80 Pulse Oximetry 98 96 Oxygen Delivery Method Room Air BMI result Body Mass Index 29.5 Labs 06/02/24 16:41 06/03/24 13:51 Imaging Radiology Impressions: ITS Impressions Chest X-Ray 06/09/24 10:55 IMPRESSION: No acute process. Mild hyperinflation. Head CT 06/09/24 11:20 IMPRESSION: 1. No evidence of acute intracranial hemorrhage or edematous territorial infarction. 2. Mild underlying microangiopathy. Medications Medications Current Medications Al Hydroxide/Mg Hydroxide (Magnesium Hydrox/Alum Hydrox 30 Ml Oral.Susp) 30 ml PO Q6H PRN PRN Reason: Heartburn/Nausea Last Admin: 06/11/24 22:07 Dose: 30 ml Albuterol Sulfate (Albuterol Sulfate 90 Mcg 8 Gm Inhaler) 2 puff INHALE Q4H PRN PRN Reason: Wheezing Last Admin: 06/12/24 10:42 Dose: 2 puff Amlodipine Besylate (Amlodipine Besylate 2.5 Mg Tablet) 2.5 mg PO DAILY [facility]; Protocol Last Admin: 06/12/24 08:17 Dose: 2.5 mg Artificial Tears (Artificial Tears 15 Ml Drops) 1 drop EYE-BOTH Q4H PRN PRN Reason: Dry Eyes Last Admin: 06/12/24 10:42 Dose: 1 drop Aspirin (Aspirin Enteric Coated 81 Mg Tablet.) 81 mg PO DAILY [facility] Last Admin: 06/12/24 08:16 Dose: 81 mg Atorvastatin Calcium (Atorvastatin Calcium 40 Mg Tablet) 40 mg PO BEDTIME [facility] Last Admin: 06/11/24 21:00 Dose: 40 mg Benztropine Mesylate (Benztropine Mesylate 0.5 Mg Tablet) 0.5 mg PO BID [facility] Last Admin: 06/12/24 08:17 Dose: 0.5 mg Ezetimibe (Ezetimibe 10 Mg Tablet) 10 mg PO DAILY [facility] Last Admin: 06/12/24 08:16 Dose: 10 mg Famotidine (Famotidine 20 Mg Tablet) 20 mg PO DAILY [facility] Ferrous Sulfate (Ferrous Sulfate 324 Mg Tablet.) 324 mg PO DAILY [facility] Last Admin: 06/12/24 08:17 Dose: 324 mg Folic Acid (Folic Acid 1 Mg Tablet) 1 mg PO DAILY [facility] Last Admin: 06/12/24 08:16 Dose: 1 mg Hydroxyzine HCl (Hydroxyzine Hcl 25 Mg Tablet) 25 mg PO Q6H PRN PRN Reason: Anxiety Last Admin: 06/12/24 08:17 Dose: 25 mg Ibuprofen (Ibuprofen 600 Mg Tablet) 600 mg PO Q8H PRN PRN Reason: Pain, Mild (Pain Scale 1-3) Last Admin: 06/12/24 10:42 Dose: 600 mg Magnesium Hydroxide (Milk Of Magnesia 30 Ml Oral.Susp) 30 ml PO DAILY PRN PRN Reason: Constipation Last Admin: 06/12/24 09:33 Dose: 30 ml Metoprolol Succinate (Metoprolol Succinate Er 25 Mg Tab.Er.24h) 25 mg PO DAILY [facility]; Protocol Last Admin: 06/12/24 08:17 Dose: 25 mg Mirtazapine (Mirtazapine 30 Mg Tablet) 30 mg PO BEDTIME [facility] Last Admin: 06/11/24 21:01 Dose: 30 mg Nicotine Polacrilex (Nicotine Polacrilex 2 Mg Gum) 4 mg BUCCAL Q2H PRN PRN Reason: Nicotine Cravings Last Admin: 06/12/24 12:17 Dose: 4 mg Nicotine Polacrilex (Nicotine Polacrilex 2 Mg Gum) 4 mg BUCCAL Q2H PRN PRN Reason: Nicotine Cravings Last Admin: 06/05/24 21:42 Dose: 4 mg Olanzapine (Olanzapine 5 Mg Tablet) 5 mg PO BID PRN PRN Reason: psychosis, agitation Last Admin: 06/12/24 10:42 Dose: 5 mg Omeprazole (Omeprazole 20 Mg Capsule.Dr) 20 mg PO DAILY@0630 [facility] Last Admin: 06/12/24 07:10 Dose: 20 mg Risperidone (Risperidone 0.5 Mg Tablet) 0.5 mg PO Q4H PRN PRN Reason: AH Last Admin: 06/12/24 08:17 Dose: 0.5 mg Risperidone (Risperidone 3 Mg Tablet) 3 mg PO BID [facility] Last Admin: 06/12/24 08:17 Dose: 3 mg Thiamine HCl (Thiamine Hcl 100 Mg Tablet) 100 mg PO DAILY [facility] Last Admin: 06/12/24 08:17 Dose: 100 mg Trazodone HCl (Trazodone Hcl 100 Mg Tablet) 100 mg PO BEDTIME [facility] Last Admin: 06/11/24 21:01 Dose: 100 mg Allergies Allergies Allergy/AdvReac Type Severity Reaction Status Date / Time acetaminophen Allergy Unknown PANADOL = Verified 06/02/24 16:01 ACETAMINOPHEN SHELLFISH Allergy Mild PATIENT Uncoded 06/02/24 16:01 REPORTS BURNING SENSATION THROUGHOUT OPIATES Allergy Unknown BECAME Uncoded 06/02/24 16:01 ADDICTED PANADOL Allergy Unknown UNKNOWN Uncoded 06/02/24 16:01 Assessment & Plan Assessment & Plan (1) Schizoaffective disorder: Qualifiers: Schizoaffective disorder type: unspecified Qualified Code(s): F25.9 - Schizoaffective disorder, unspecified Status: Acute Code(s): F25.9 - Schizoaffective disorder, unspecified (2) Intellectual delay: Status: Acute Code(s): F81.9 - Developmental disorder of scholastic skills, unspecified (3) CAD (coronary artery disease): Status: Acute Code(s): I25.10 - Atherosclerotic heart disease of platinum coronary artery without angina pectoris Plan Patient 59 yr old Thai-speaking male with schizoaffective disorder, cognitive delay, who lives with his mother, recently discharged from on 05/20/2024 who presents via family for increased paranoia, anger and confusion. At last admission there was the thought that patient was not taking all of his medications, since the bulk of his Risperdal was prescribed at bedtime and the [facility] only came in the morning. During this last admission, Risperdal changed so that he was taking the bulk of it in the morning and with VNA, seems he is taking his medications. Despite this, family reports that his behaviors are worsening. On the unit he is friendly and calm; he is confused saying he wants to go see his children, caring a pillow in his arms and calling it his baby. Formulation/clinical reasoning: It is not clear what is causing decline given that he is most likely taking his medications regularly. Some speculation that he might be abusing substance when out and about in neighborhood however UDS is negative. Setting up family meeting to discuss. Hospital course: 06/05 Patient denies any AH to real estate underwriter. Denies any SI or HI and says I never look for problems... I am never aggressive... I am good... Although he denies AH, patient says there is too much noise on the unit, and that people are touching his face. Earlier he had told another staff that he was having AH to hurt himself but that he was able to ignore. Patient denies any current drug use; he adds that he used to live on the streets but now he goes to [place]. Supervisor [employer] asked about why he had been carrying a pillow around calling it his baby; patient did not really answer but said that he has a son and a granddaughter and that his is . Patient said he wanted to go home but then agreed to wait for meeting with outpatient staff this next Saturday. -patient does seem more confused than he did at last admission. Will increase Risperdal 06/08 Patient remains disorganized, able to be goal-directed on some topics such as wanting is close but otherwise trying to enter in any open door he sees and needing frequent redirection. SW and real estate underwriter Discussed case with outpt team: Efraín Gray, MICHAELS Nimisha Glaser DDS Marlyn Brennan [place] No one is sure why patient has decompensated after decades of remaining stable on Risperdal. Says that for some reason this past month he has been more paranoid, more disorganized and when he returned from last admission he was not quite back to baseline. The past weeks patient was given away clothing on the street. This past admission was following patient argument with a neighbor. Apparently he had been peeking into this neighbor's window, scaring the neighbor and scared the neighbor's kids. They had a verbal altercation; staff arrived and patient kept saying he was going to go over to the neighbor's and take care of the neighbor... No actual threat was made and patient has no history of aggression but because of this he was taken to the hospital. Bret has discussed eviction of both patient and his elderly mother if behaviors continue. Team wondered if patient was not taking his medications however real estate underwriter explained that the bulk of his medications were switched so the VNA was giving him the 3 mg of Risperdal out of the 3.5 total daily dose making this less likely the issue. They say at baseline he paces and is anxious but he pretty much make sense and though he may say some delusional things his conversations are overall able to remain grounded in reality. Discussed various options including temporary housing and likelihood that patient will at some point in the near future need some type of group living arrangement as his mother is elderly and with some dementia Unclear why patient has decompensated; Increased Risperdal to see if that can help. Thus far no clear organic etiology; will get additional labs to trying rule out other possible causes, including HIV and RPR, magnesium, B12/folate; will likely get head CT, though anticipate that results will be unremarkable. UDS was negative and UA showed no bacterial growth. Will try to get more collateral from family 06/09 Patient remains confused and disorganized, jumping from topic to topic. He agrees to remain to have meeting on Saturday but otherwise says he is missing home. Patient denies any chest pain but passes hard to say that he has a heart condition and has a surgically implanted mesh. Patient starts to cry and says that people are laughing at him that he can hear them doing so; he also said that a staff person's came in to his room last night and choked. Patient started taking should often group today. Looking for any organic contribution to patient's decompensation, however: labs thus far unremarkable; magnesium/calcium WNL; electrolytes WNL Chest x-ray pending Repeat UA unremarkable; no evidence of UTI -Head CT however did show evidence of Mild underlying microangiopathy Which could indicate vascular dementia as a possible contribution, which does seem to worsen in a stepwise fashion Will continue with current medication regimen; if no improvement will consider switching to Zyprexa which is on the [facility] order. 06/11 Patient remains disorganized, delusional. Supervisor [employer] another staff person saying it was his son; telling real estate underwriter he is going up by real estate underwriter a car, telling other staff members the same. Saying he has to go downstairs and feed the baby... Review of chart shows that patient has been getting Zyprexa p.r.n. consistently which seems to subdue patients agitation for a bit however but has thus far not helped resolve psychotic symptoms. -it is unlikely that is scheduling Zyprexa will make much difference says he has gotten significant doses over the past 5 days; will leave his p.r.n. for now; however will monitor how much antipsychotic patient is getting and lower p.r.n. availability to b.i.d.. -Reviewed recent EKG and QTc Int : 489 ms which is mildly prolonged; will monitor 06/07 total daily dose 5 mg 06/08 15 mg 06/09 10 mg 06/10 15 mg 06/11 5 mg 06/12 remains delusional, disorganized, intermittently intrusive with peers, sometimes a little aggressive with peers but remains redirectable. Considering maybe switching to Zyprexa since Risperdal isn't helping with psychosis and perhaps Zyprexa can subdue agitated behaviors -outpatient team came to visit and report patient is far from baseline at which he had been for a decade until about a month ago PLAN: CV Guardian 1:1 for accidental intrusiveness to others and needing to be redirected Continue risperidone 3 mg b.i.d. (was total daily dose of 3.5mg as outpt) Mirtazapine 30 mg PO BEDTIME [facility] Benztropine Mesylate 0.5 mg PO BID [facility] Clonazepam 0.5 mg PO BID [facility] Lower PRN Zyprexa 5mg to BID (Zyprexa seems to help subdue agitation but not resolve psychosis; will lower dose available given mild prolongation of QTC) Omeprazole 20 mg PO DAILY@0630 [facility] Albuterol Sulfate 2 puff INHALE Q4H PRN Amlodipine Besylate 2.5 mg PO DAILY [facility]; Protocol Artificial Tears 1 drop EYE-BOTH Q4H PRN Aspirin 81 mg PO DAILY [facility] Atorvastatin Calcium 40 mg PO BEDTIME [facility] Ezetimibe 10 mg PO DAILY [facility] Ferrous Sulfate 324 mg PO DAILY [facility] Folic Acid 1 mg PO DAILY [facility] Hydroxyzine HCl 25 mg PO Q6H PRN Metoprolol Succinate 25 mg PO DAILY [facility]; Protocol Thiamine HCl 100 mg PO DAILY [facility] Trazodone HCl 100 mg PO BEDTIME [facility] effective to March 26, 2025: Risperdal up to 10mg daily (primary) Geodon up to 60mg daily Zyprexa up to 25mg daily later in evening pt complained of right sided chest pain; vitals WNL and pt not in any distress but given hx for CAD ordered EKG and trop Patient educated on: diagnosis, medication risk/benefits and therapeutic strategies Informed Consent: does not understand Reason for continued inpatient stay Substantial Risk for: inability to function Time Spent With Patient Time: Total time managing care of this patient today ____ minutes.
[2024-06-12 20:00] VITALS: BP 153/80; PULSE 87; RESP 18; TEMP 36.9; O2SAT 98
[2024-06-12] MEDS: Mirtazapine 30 MG TABLET PO (20:53)
[2024-06-12] MEDS: traZODone HCL 100 MG TABLET PO (20:54)
[2024-06-12] MEDS: Atorvastatin Calcium 40 MG TABLET PO (20:54)
[2024-06-13] MEDS: Omeprazole 20 MG CAPSULE.DR PO (06:55)
[2024-06-13] MEDS: hydrOXYzine HCL 25 MG TABLET PO (06:55)
[2024-06-13] MEDS: Nicotine Polacrilex 2 MG GUM 4 MG BUCCAL ×4 (06:56→16:48)
[2024-06-13 08:00] VITALS: BP 122/67; PULSE 112; TEMP 36.9; O2SAT 97
[2024-06-13 08:57] VITALS: BP 122/67
[2024-06-13] MEDS: amLODIPine Besylate 2.5 MG TABLET PO (08:57)
[2024-06-13] MEDS: Aspirin Enteric Coated 81 MG TABLET.DR PO (08:57)
[2024-06-13] MEDS: Ezetimibe 10 MG TABLET PO (08:57)
[2024-06-13] MEDS: Folic Acid 1 MG TABLET PO (08:57)
[2024-06-13] MEDS: Artificial Tears 15 ML DROPS 1 DROP EYE-BOTH ×2 (08:57→12:58)
[2024-06-13] MEDS: Ferrous Sulfate 324 MG TABLET.DR PO (08:58)
[2024-06-13] MEDS: Benztropine Mesylate 0.5 MG TABLET PO ×2 (08:58→19:51)
[2024-06-13] MEDS: Famotidine 20 MG TABLET PO (08:58)
[2024-06-13] MEDS: Metoprolol Succinate ER 25 MG TAB.ER.24H PO (08:58)
[2024-06-13] MEDS: risperiDONE 3 MG TABLET PO (08:58)
[2024-06-13] MEDS: Thiamine HCL 100 MG TABLET PO (08:58)
--- NOTE | 2024-06-13 11:45 | HO.PSYCHPN ---
Subjective Subjective Date of Service: 06/13/24 Reason For Visit: Dysregulated Interim History: Met with patient; discussed with team Remains delusional, disorganized. A little more agitated and today went after peer (unprovoked) at the phone, then went after another peer. Staff able to redirect each time and pt willing to take medication. Will dc risperdal since not making any differnece will instead try zyprexa 5mg TID...as a prn, it's helped subdue agitated behavior, though has not yet reduced delusional thinking. Mental Status Exam Mental Status Exam Narrative: Pt is alert and oriented; behavior is is mostly (overly) friendly however increasing restless, wandering, accidentally intrusive to peers, sometimes momentarily aggressive with peers, disorganized, typically able to be redirected. remains able to be easily redirected; patient is not in distress; dressed in hospital attire, scruffy with adequate hygiene; mood is described as good and but affect is constricted and patient sometimes tearful; eye contact appropriate; Speech is repetitive, a little pressured, normal volume and prosody; moderate psychomotor agitation present as he keeps pacing, trying to enter any open door; thought process can be goal directed, but mostly tangential and disorganized, perseverative; Thought content is on various things, mostly delusional thoughts; denies any SI/HI. Denies AVH; Patients insight and judgment impaired. Diagnostics Vital Signs (24Hr): Vital Signs - 24 hr 06/12/24 20:00 06/13/24 08:00 06/13/24 08:57 Temperature 98.4 F 98.4 F Pulse Rate 87 112 H Respiratory Rate 18 Blood Pressure 153/80 H 122/67 122/67 Pulse Oximetry 98 97 Oxygen Delivery Method Room Air Room Air BMI result Body Mass Index 29.5 Labs 06/02/24 16:41 06/03/24 13:51 Imaging Radiology Impressions: ITS Impressions Chest X-Ray 06/09/24 10:55 IMPRESSION: No acute process. Mild hyperinflation. Head CT 06/09/24 11:20 IMPRESSION: 1. No evidence of acute intracranial hemorrhage or edematous territorial infarction. 2. Mild underlying microangiopathy. Medications Medications Current Medications Al Hydroxide/Mg Hydroxide (Magnesium Hydrox/Alum Hydrox 30 Ml Oral.Susp) 30 ml PO Q6H PRN PRN Reason: Heartburn/Nausea Last Admin: 06/11/24 22:07 Dose: 30 ml Albuterol Sulfate (Albuterol Sulfate 90 Mcg 8 Gm Inhaler) 2 puff INHALE Q4H PRN PRN Reason: Wheezing Last Admin: 06/12/24 23:53 Dose: 2 puff Amlodipine Besylate (Amlodipine Besylate 2.5 Mg Tablet) 2.5 mg PO DAILY [facility]; Protocol Last Admin: 06/13/24 08:57 Dose: 2.5 mg Artificial Tears (Artificial Tears 15 Ml Drops) 1 drop EYE-BOTH Q4H PRN PRN Reason: Dry Eyes Last Admin: 06/13/24 08:57 Dose: 1 drop Aspirin (Aspirin Enteric Coated 81 Mg Tablet.) 81 mg PO DAILY [facility] Last Admin: 06/13/24 08:57 Dose: 81 mg Atorvastatin Calcium (Atorvastatin Calcium 40 Mg Tablet) 40 mg PO BEDTIME [facility] Last Admin: 06/12/24 20:54 Dose: 40 mg Benztropine Mesylate (Benztropine Mesylate 0.5 Mg Tablet) 0.5 mg PO BID [facility] Last Admin: 06/13/24 08:58 Dose: 0.5 mg Ezetimibe (Ezetimibe 10 Mg Tablet) 10 mg PO DAILY [facility] Last Admin: 06/13/24 08:57 Dose: 10 mg Famotidine (Famotidine 20 Mg Tablet) 20 mg PO DAILY [facility] Last Admin: 06/13/24 08:58 Dose: 20 mg Ferrous Sulfate (Ferrous Sulfate 324 Mg Tablet.) 324 mg PO DAILY [facility] Last Admin: 06/13/24 08:58 Dose: 324 mg Folic Acid (Folic Acid 1 Mg Tablet) 1 mg PO DAILY [facility] Last Admin: 06/13/24 08:57 Dose: 1 mg Hydroxyzine HCl (Hydroxyzine Hcl 25 Mg Tablet) 25 mg PO Q6H PRN PRN Reason: Anxiety Last Admin: 06/13/24 06:55 Dose: 25 mg Ibuprofen (Ibuprofen 600 Mg Tablet) 600 mg PO Q8H PRN PRN Reason: Pain, Mild (Pain Scale 1-3) Last Admin: 06/12/24 23:50 Dose: 600 mg Magnesium Hydroxide (Milk Of Magnesia 30 Ml Oral.Susp) 30 ml PO DAILY PRN PRN Reason: Constipation Last Admin: 06/12/24 09:33 Dose: 30 ml Metoprolol Succinate (Metoprolol Succinate Er 25 Mg Tab.Er.24h) 25 mg PO DAILY [facility]; Protocol Last Admin: 06/13/24 08:58 Dose: 25 mg Mirtazapine (Mirtazapine 30 Mg Tablet) 30 mg PO BEDTIME [facility] Last Admin: 06/12/24 20:53 Dose: 30 mg Nicotine Polacrilex (Nicotine Polacrilex 2 Mg Gum) 4 mg BUCCAL Q2H PRN PRN Reason: Nicotine Cravings Last Admin: 06/13/24 06:56 Dose: 4 mg Nicotine Polacrilex (Nicotine Polacrilex 2 Mg Gum) 4 mg BUCCAL Q2H PRN PRN Reason: Nicotine Cravings Last Admin: 06/05/24 21:42 Dose: 4 mg Olanzapine (Olanzapine 5 Mg Tablet) 5 mg PO BID PRN PRN Reason: psychosis, agitation Last Admin: 06/12/24 23:50 Dose: 5 mg Omeprazole (Omeprazole 20 Mg Capsule.Dr) 20 mg PO DAILY@0630 [facility] Last Admin: 06/13/24 06:55 Dose: 20 mg Risperidone (Risperidone 0.5 Mg Tablet) 0.5 mg PO Q4H PRN PRN Reason: AH Last Admin: 06/12/24 23:50 Dose: 0.5 mg Risperidone (Risperidone 3 Mg Tablet) 3 mg PO BID [facility] Last Admin: 06/13/24 08:58 Dose: 3 mg Thiamine HCl (Thiamine Hcl 100 Mg Tablet) 100 mg PO DAILY [facility] Last Admin: 06/13/24 08:58 Dose: 100 mg Trazodone HCl (Trazodone Hcl 100 Mg Tablet) 100 mg PO BEDTIME [facility] Last Admin: 06/12/24 20:54 Dose: 100 mg Allergies Allergies Allergy/AdvReac Type Severity Reaction Status Date / Time acetaminophen Allergy Unknown PANADOL = Verified 06/02/24 16:01 ACETAMINOPHEN SHELLFISH Allergy Mild PATIENT Uncoded 06/02/24 16:01 REPORTS BURNING SENSATION THROUGHOUT OPIATES Allergy Unknown BECAME Uncoded 06/02/24 16:01 ADDICTED PANADOL Allergy Unknown UNKNOWN Uncoded 06/02/24 16:01 Assessment & Plan Assessment & Plan (1) Schizoaffective disorder: Qualifiers: Schizoaffective disorder type: unspecified Qualified Code(s): F25.9 - Schizoaffective disorder, unspecified Status: Acute Code(s): F25.9 - Schizoaffective disorder, unspecified (2) Intellectual delay: Status: Acute Code(s): F81.9 - Developmental disorder of scholastic skills, unspecified (3) CAD (coronary artery disease): Status: Acute Code(s): I25.10 - Atherosclerotic heart disease of [place] coronary artery without angina pectoris Plan Patient 59 yr old Dive[place]-speaking male with schizoaffective disorder, cognitive delay, who lives with his mother, recently discharged from on 05/20/2024 who presents via family for increased paranoia, anger and confusion. At last admission there was the thought that patient was not taking all of his medications, since the bulk of his Risperdal was prescribed at bedtime and the [facility] only came in the morning. During this last admission, Risperdal changed so that he was taking the bulk of it in the morning and with VNA, seems he is taking his medications. Despite this, family reports that his behaviors are worsening. On the unit he is friendly and calm; he is confused saying he wants to go see his children, caring a pillow in his arms and calling it his baby. Formulation/clinical reasoning: It is not clear what is causing decline given that he is most likely taking his medications regularly. Some speculation that he might be abusing substance when out and about in neighborhood however UDS is negative. Setting up family meeting to discuss. Hospital course: 06/05 Patient denies any AH to screenplay writer. Denies any SI or HI and says I never look for problems... I am never aggressive... I am good... Although he denies AH, patient says there is too much noise on the unit, and that people are touching his face. Earlier he had told another staff that he was having AH to hurt himself but that he was able to ignore. Patient denies any current drug use; he adds that he used to live on the streets but now he goes to [employer]. Service Consultant asked about why he had been carrying a pillow around calling it his baby; patient did not really answer but said that he has a son and a granddaughter and that his is . Patient said he wanted to go home but then agreed to wait for meeting with outpatient staff this next Saturday. -patient does seem more confused than he did at last admission. Will increase Risperdal 06/08 Patient remains disorganized, able to be goal-directed on some topics such as wanting is close but otherwise trying to enter in any open door he sees and needing frequent redirection. SW and screenplay writer Discussed case with outpt team: Efraín Gray, DDS Nimisha Glaser DDS Marlyn Brennan [place] No one is sure why patient has decompensated after decades of remaining stable on Risperdal. Says that for some reason this past month he has been more paranoid, more disorganized and when he returned from last admission he was not quite back to baseline. The past weeks patient was given away clothing on the street. This past admission was following patient argument with a neighbor. Apparently he had been peeking into this neighbor's window, scaring the neighbor and scared the neighbor's kids. They had a verbal altercation; staff arrived and patient kept saying he was going to go over to the neighbor's and take care of the neighbor... No actual threat was made and patient has no history of aggression but because of this he was taken to the hospital. Bret has discussed eviction of both patient and his elderly mother if behaviors continue. Team wondered if patient was not taking his medications however screenplay writer explained that the bulk of his medications were switched so the [facility]NA was giving him the 3 mg of Risperdal out of the 3.5 total daily dose making this less likely the issue. They say at baseline he paces and is anxious but he pretty much make sense and though he may say some delusional things his conversations are overall able to remain grounded in reality. Discussed various options including temporary housing and likelihood that patient will at some point in the near future need some type of group living arrangement as his mother is elderly and with some dementia Unclear why patient has decompensated; Increased Risperdal to see if that can help. Thus far no clear organic etiology; will get additional labs to trying rule out other possible causes, including HIV and RPR, magnesium, B12/folate; will likely get head CT, though anticipate that results will be unremarkable. UDS was negative and UA showed no bacterial growth. Will try to get more collateral from family 06/09 Patient remains confused and disorganized, jumping from topic to topic. He agrees to remain to have meeting on Saturday but otherwise says he is missing home. Patient denies any chest pain but passes hard to say that he has a heart condition and has a surgically implanted mesh. Patient starts to cry and says that people are laughing at him that he can hear them doing so; he also said that a staff person's came in to his room last night and choked. Patient started taking should often group today. Looking for any organic contribution to patient's decompensation, however: labs thus far unremarkable; magnesium/calcium WNL; electrolytes WNL Chest x-ray pending Repeat UA unremarkable; no evidence of UTI -Head CT however did show evidence of Mild underlying microangiopathy Which could indicate vascular dementia as a possible contribution, which does seem to worsen in a stepwise fashion Will continue with current medication regimen; if no improvement will consider switching to Zyprexa which is on the [facility] order. 06/11 Patient remains disorganized, delusional. Service Consultant another staff person saying it was his son; telling screenplay writer he is going up by screenplay writer a car, telling other staff members the same. Saying he has to go downstairs and feed the baby... Review of chart shows that patient has been getting Zyprexa p.r.n. consistently which seems to subdue patients agitation for a bit however but has thus far not helped resolve psychotic symptoms. -it is unlikely that is scheduling Zyprexa will make much difference says he has gotten significant doses over the past 5 days; will leave his p.r.n. for now; however will monitor how much antipsychotic patient is getting and lower p.r.n. availability to b.i.d.. -Reviewed recent EKG and QTc Int : 489 ms which is mildly prolonged; will monitor 06/07 total daily dose 5 mg 06/08 15 mg 06/09 10 mg 06/10 15 mg 06/11 5 mg 06/12 remains delusional, disorganized, intermittently intrusive with peers, sometimes a little aggressive with peers but remains redirectable. Considering maybe switching to Zyprexa since Risperdal isn't helping with psychosis and perhaps Zyprexa can subdue agitated behaviors -outpatient team came to visit and report patient is far from baseline at which he had been for a decade until about a month ago 06/13 Remains delusional, disorganized. A little more agitated and today went after peer (unprovoked) at the phone, then went after another peer. Staff able to redirect each time and pt willing to take medication. Will dc risperdal since not making any differnece will instead try zyprexa 5mg TID...as a prn, it's helped subdue agitated behavior, though has not yet reduced delusional thinking. PLAN: CV Guardian; pt has given permission to talk with his family 1:1 for accidental intrusiveness to others and needing to be redirected START Zyprexa 5mg TID DC risperidone (was on 3 mg b.i.d. up from home dose which was a total daily dose of 3.5mg)) Mirtazapine 30 mg PO BEDTIME [facility] Benztropine Mesylate 0.5 mg PO BID [facility] Clonazepam 0.5 mg PO BID [facility] Lower PRN Zyprexa 5mg to BID (Zyprexa seems to help subdue agitation but not resolve psychosis; will lower dose available given mild prolongation of QTC) Omeprazole 20 mg PO DAILY@06 [facility] Albuterol Sulfate 2 puff INHALE Q4H PRN Amlodipine Besylate 2.5 mg PO DAILY [facility]; Protocol Artificial Tears 1 drop EYE-BOTH Q4H PRN Aspirin 81 mg PO DAILY [facility] Atorvastatin Calcium 40 mg PO BEDTIME [facility] Ezetimibe 10 mg PO DAILY [facility] Ferrous Sulfate 324 mg PO DAILY [facility] Folic Acid 1 mg PO DAILY [facility] Hydroxyzine HCl 25 mg PO Q6H PRN Metoprolol Succinate 25 mg PO DAILY [facility]; Protocol Thiamine HCl 100 mg PO DAILY [facility] Trazodone HCl 100 mg PO BEDTIME [facility] effective to March 26, 2025: Risperdal up to 10mg daily (primary) Geodon up to 60mg daily Zyprexa up to 25mg daily later in evening pt complained of right sided chest pain; vitals WNL and pt not in any distress but given hx for CAD ordered EKG and trop Patient educated on: diagnosis, medication risk/benefits and therapeutic strategies Informed Consent: does not understand Reason for continued inpatient stay Substantial Risk for: inability to function Time Spent With Patient Time: Total time managing care of this patient today ____ minutes.
[2024-06-13] MEDS: clonazePAM 0.5 MG TABLET PO (13:00)
[2024-06-13] MEDS: OLANZapine 10 MG TABLET PO (13:01)
[2024-06-13] MEDS: OLANZapine 5 MG TABLET PO ×3 (16:48→22:12)
[2024-06-13] MEDS: Atorvastatin Calcium 40 MG TABLET PO (19:50)
[2024-06-13] MEDS: Magnesium Hydrox/Alum Hydrox 30 ML ORAL.SUSP PO (19:50)
[2024-06-13] MEDS: traZODone HCL 100 MG TABLET PO (19:52)
[2024-06-13] MEDS: Mirtazapine 30 MG TABLET PO (19:56)
[2024-06-13 20:00] VITALS: BP 120/68; PULSE 83; TEMP 36.9; O2SAT 92
[2024-06-13] MEDS: LORazepam 1 MG TABLET 2 MG PO (22:40)
[2024-06-13] MEDS: chlorproMAZINE HCl 25 MG TABLET 50 MG PO (23:26)
--- NOTE | 2024-06-13 23:30 | PM.EVENT ---
Event Note Date of Service: 06/13/24 Event Note: pt continues to be disorganized, intrusive, aggressive to peers needing prns; effort made to limit amount of antipsychotics Time Spent With Patient Time: Total time managing care of this patient today ____ minutes.
[2024-06-14] MEDS: Artificial Tears 15 ML DROPS 1 DROP EYE-BOTH ×5 (00:37→23:29)
[2024-06-14] MEDS: Omeprazole 20 MG CAPSULE.DR PO (07:37)
[2024-06-14 07:54] VITALS: BP 156/75; PULSE 72; TEMP 36.1; O2SAT 97
[2024-06-14] MEDS: Ezetimibe 10 MG TABLET PO (08:43)
[2024-06-14] MEDS: amLODIPine Besylate 2.5 MG TABLET PO (08:43)
[2024-06-14] MEDS: Benztropine Mesylate 0.5 MG TABLET PO ×2 (08:43→20:57)
[2024-06-14] MEDS: OLANZapine 5 MG TABLET PO ×5 (08:43→23:27)
[2024-06-14] MEDS: Thiamine HCL 100 MG TABLET PO (08:43)
[2024-06-14] MEDS: Aspirin Enteric Coated 81 MG TABLET.DR PO (08:43)
[2024-06-14] MEDS: clonazePAM 1 MG TABLET PO ×2 (08:44→12:27)
[2024-06-14] MEDS: Famotidine 20 MG TABLET PO (08:44)
[2024-06-14] MEDS: Ferrous Sulfate 324 MG TABLET.DR PO (08:44)
[2024-06-14] MEDS: Folic Acid 1 MG TABLET PO (08:44)
[2024-06-14] MEDS: Metoprolol Succinate ER 25 MG TAB.ER.24H PO (08:44)
[2024-06-14] MEDS: Nicotine Polacrilex 2 MG GUM 4 MG BUCCAL ×4 (09:17→18:35)
--- NOTE | 2024-06-14 11:39 | HO.PSYCHPN ---
Subjective Subjective Date of Service: 06/14/24 Reason For Visit: Dysregulated Interim History: Met with patient; discussed with team Last night patient continued to be aggressive towards peers, delusional; travel writer on-call and discussed with nurse and gave Ativan 2 mg to see if that could subdue behaviors, trying to avoid giving more antipsychotic. However he remained intrusive and agitated towards peers, a little more difficult to redirect and so Thorazine 50 mg p.o. given. Today, Patient less agitated and has not been aggressive towards peers; a little more calm and though he remains disorganized, delusional, a little easier to extract oneself conversation Medicare Contact Specialist was Considering that perhaps patient maybe having some manic behaviors and might benefit from Depakote however since there is some mild improvement will continue with Zyprexa t.i.d. dosing for now and monitor Mental Status Exam Mental Status Exam Narrative: Pt is alert and oriented; behavior is is mostly (overly) friendly however increasing restless, wandering, accidentally intrusive to peers, sometimes momentarily aggressive with peers, disorganized, typically able to be redirected. remains able to be easily redirected; patient is not in distress; dressed in hospital attire, scruffy with adequate hygiene; mood is described as good and but affect is constricted and patient sometimes tearful; eye contact appropriate; Speech is repetitive, a little pressured, normal volume and prosody; moderate psychomotor agitation present as he keeps pacing, trying to enter any open door; thought process can be goal directed, but mostly tangential and disorganized, perseverative; Thought content is on various things, mostly delusional thoughts; denies any SI/HI. Denies AVH; Patients insight and judgment impaired. Diagnostics Vital Signs (24Hr): Vital Signs - 24 hr 06/13/24 20:00 06/14/24 07:54 Temperature 98.4 F 96.9 F Pulse Rate 83 72 Blood Pressure 120/68 156/75 H Pulse Oximetry 92 97 Oxygen Delivery Method Room Air Room Air BMI result Body Mass Index 29.5 Labs 06/02/24 16:41 06/03/24 13:51 Imaging Radiology Impressions: ITS Impressions Chest X-Ray 06/09/24 10:55 IMPRESSION: No acute process. Mild hyperinflation. Head CT 06/09/24 11:20 IMPRESSION: 1. No evidence of acute intracranial hemorrhage or edematous territorial infarction. 2. Mild underlying microangiopathy. Medications Medications Current Medications Al Hydroxide/Mg Hydroxide (Magnesium Hydrox/Alum Hydrox 30 Ml Oral.Susp) 30 ml PO Q6H PRN PRN Reason: Heartburn/Nausea Last Admin: 06/13/24 19:50 Dose: 30 ml Albuterol Sulfate (Albuterol Sulfate 90 Mcg 8 Gm Inhaler) 2 puff INHALE Q4H PRN PRN Reason: Wheezing Last Admin: 06/12/24 23:53 Dose: 2 puff Amlodipine Besylate (Amlodipine Besylate 2.5 Mg Tablet) 2.5 mg PO DAILY [facility]; Protocol Last Admin: 06/14/24 08:43 Dose: 2.5 mg Artificial Tears (Artificial Tears 15 Ml Drops) 1 drop EYE-BOTH Q4H PRN PRN Reason: Dry Eyes Last Admin: 06/14/24 08:45 Dose: 1 drop Aspirin (Aspirin Enteric Coated 81 Mg Tablet.) 81 mg PO DAILY [facility] Last Admin: 06/14/24 08:43 Dose: 81 mg Atorvastatin Calcium (Atorvastatin Calcium 40 Mg Tablet) 40 mg PO BEDTIME [facility] Last Admin: 06/13/24 19:50 Dose: 40 mg Benztropine Mesylate (Benztropine Mesylate 0.5 Mg Tablet) 0.5 mg PO BID [facility] Last Admin: 06/14/24 08:43 Dose: 0.5 mg Clonazepam (Clonazepam 1 Mg Tablet) 1 mg PO BID@0900,1300 [facility] Last Admin: 06/14/24 08:44 Dose: 1 mg Ezetimibe (Ezetimibe 10 Mg Tablet) 10 mg PO DAILY [facility] Last Admin: 06/14/24 08:43 Dose: 10 mg Famotidine (Famotidine 20 Mg Tablet) 20 mg PO DAILY [facility] Last Admin: 06/14/24 08:44 Dose: 20 mg Ferrous Sulfate (Ferrous Sulfate 324 Mg Tablet.) 324 mg PO DAILY [facility] Last Admin: 06/14/24 08:44 Dose: 324 mg Folic Acid (Folic Acid 1 Mg Tablet) 1 mg PO DAILY [facility] Last Admin: 06/14/24 08:44 Dose: 1 mg Hydroxyzine HCl (Hydroxyzine Hcl 25 Mg Tablet) 25 mg PO Q6H PRN PRN Reason: Anxiety Last Admin: 06/13/24 06:55 Dose: 25 mg Ibuprofen (Ibuprofen 600 Mg Tablet) 600 mg PO Q8H PRN PRN Reason: Pain, Mild (Pain Scale 1-3) Last Admin: 06/12/24 23:50 Dose: 600 mg Magnesium Hydroxide (Milk Of Magnesia 30 Ml Oral.Susp) 30 ml PO DAILY PRN PRN Reason: Constipation Last Admin: 06/12/24 09:33 Dose: 30 ml Metoprolol Succinate (Metoprolol Succinate Er 25 Mg Tab.Er.24h) 25 mg PO DAILY [facility]; Protocol Last Admin: 06/14/24 08:44 Dose: 25 mg Mirtazapine (Mirtazapine 30 Mg Tablet) 30 mg PO BEDTIME [facility] Last Admin: 06/13/24 19:56 Dose: 30 mg Nicotine Polacrilex (Nicotine Polacrilex 2 Mg Gum) 4 mg BUCCAL Q2H PRN PRN Reason: Nicotine Cravings Last Admin: 06/14/24 09:17 Dose: 4 mg Nicotine Polacrilex (Nicotine Polacrilex 2 Mg Gum) 4 mg BUCCAL Q2H PRN PRN Reason: Nicotine Cravings Last Admin: 06/05/24 21:42 Dose: 4 mg Olanzapine (Olanzapine 5 Mg Tablet) 5 mg PO TID [facility] Last Admin: 06/14/24 08:43 Dose: 5 mg Olanzapine (Olanzapine 5 Mg Tablet) 5 mg PO TID PRN PRN Reason: psychosis, agitation Omeprazole (Omeprazole 20 Mg Capsule.Dr) 20 mg PO DAILY@0630 [facility] Last Admin: 06/14/24 07:37 Dose: 20 mg Thiamine HCl (Thiamine Hcl 100 Mg Tablet) 100 mg PO DAILY [facility] Last Admin: 06/14/24 08:43 Dose: 100 mg Trazodone HCl (Trazodone Hcl 100 Mg Tablet) 100 mg PO BEDTIME [facility] Last Admin: 06/13/24 19:52 Dose: 100 mg Allergies Allergies Allergy/AdvReac Type Severity Reaction Status Date / Time acetaminophen Allergy Unknown PANADOL = Verified 06/02/24 16:01 ACETAMINOPHEN SHELLFISH Allergy Mild PATIENT Uncoded 06/02/24 16:01 REPORTS BURNING SENSATION THROUGHOUT OPIATES Allergy Unknown BECAME Uncoded 06/02/24 16:01 ADDICTED PANADOL Allergy Unknown UNKNOWN Uncoded 06/02/24 16:01 Assessment & Plan Assessment & Plan (1) Schizoaffective disorder: Qualifiers: Schizoaffective disorder type: unspecified Qualified Code(s): F25.9 - Schizoaffective disorder, unspecified Status: Acute Code(s): F25.9 - Schizoaffective disorder, unspecified (2) Intellectual delay: Status: Acute Code(s): F81.9 - Developmental disorder of scholastic skills, unspecified (3) CAD (coronary artery disease): Status: Acute Code(s): I25.10 - Atherosclerotic heart disease of [place] coronary artery without angina pectoris Plan Patient 59 yr old Polish-speaking male with schizoaffective disorder, cognitive delay, who lives with his mother, recently discharged from on 05/20/2024 who presents via family for increased paranoia, anger and confusion. At last admission there was the thought that patient was not taking all of his medications, since the bulk of his Risperdal was prescribed at bedtime and the [facility] only came in the morning. During this last admission, Risperdal changed so that he was taking the bulk of it in the morning and with VNA, seems he is taking his medications. Despite this, family reports that his behaviors are worsening. On the unit he is friendly and calm; he is confused saying he wants to go see his children, caring a pillow in his arms and calling it his baby. Formulation/clinical reasoning: It is not clear what is causing decline given that he is most likely taking his medications regularly. Some speculation that he might be abusing substance when out and about in neighborhood however UDS is negative. Setting up family meeting to discuss. Hospital course: 06/05 Patient denies any AH to travel writer. Denies any SI or HI and says I never look for problems... I am never aggressive... I am good... Although he denies AH, patient says there is too much noise on the unit, and that people are touching his face. Earlier he had told another staff that he was having AH to hurt himself but that he was able to ignore. Patient denies any current drug use; he adds that he used to live on the streets but now he goes to [facility]. Medicare Contact Specialist asked about why he had been carrying a pillow around calling it his baby; patient did not really answer but said that he has a son and a granddaughter and that his is . Patient said he wanted to go home but then agreed to wait for meeting with outpatient staff this next Saturday. -patient does seem more confused than he did at last admission. Will increase Risperdal 06/08 Patient remains disorganized, able to be goal-directed on some topics such as wanting is close but otherwise trying to enter in any open door he sees and needing frequent redirection. SW and travel writer Discussed case with outpt team: Efraín Gray DDS Nimisha Glaser DDS Marlyn Brennan [place] No one is sure why patient has decompensated after decades of remaining stable on Risperdal. Says that for some reason this past month he has been more paranoid, more disorganized and when he returned from last admission he was not quite back to baseline. The past weeks patient was given away clothing on the street. This past admission was following patient argument with a neighbor. Apparently he had been peeking into this neighbor's window, scaring the neighbor and scared the neighbor's kids. They had a verbal altercation; staff arrived and patient kept saying he was going to go over to the neighbor's and take care of the neighbor... No actual threat was made and patient has no history of aggression but because of this he was taken to the hospital. Bret has discussed eviction of both patient and his elderly mother if behaviors continue. Team wondered if patient was not taking his medications however travel writer explained that the bulk of his medications were switched so the VNA was giving him the 3 mg of Risperdal out of the 3.5 total daily dose making this less likely the issue. They say at baseline he paces and is anxious but he pretty much make sense and though he may say some delusional things his conversations are overall able to remain grounded in reality. Discussed various options including temporary housing and likelihood that patient will at some point in the near future need some type of group living arrangement as his mother is elderly and with some dementia Unclear why patient has decompensated; Increased Risperdal to see if that can help. Thus far no clear organic etiology; will get additional labs to trying rule out other possible causes, including HIV and RPR, magnesium, B12/folate; will likely get head CT, though anticipate that results will be unremarkable. UDS was negative and UA showed no bacterial growth. Will try to get more collateral from family 06/09 Patient remains confused and disorganized, jumping from topic to topic. He agrees to remain to have meeting on Saturday but otherwise says he is missing home. Patient denies any chest pain but passes hard to say that he has a heart condition and has a surgically implanted mesh. Patient starts to cry and says that people are laughing at him that he can hear them doing so; he also said that a staff person's came in to his room last night and choked. Patient started taking should often group today. Looking for any organic contribution to patient's decompensation, however: labs thus far unremarkable; magnesium/calcium WNL; electrolytes WNL Chest x-ray pending Repeat UA unremarkable; no evidence of UTI -Head CT however did show evidence of Mild underlying microangiopathy Which could indicate vascular dementia as a possible contribution, which does seem to worsen in a stepwise fashion Will continue with current medication regimen; if no improvement will consider switching to Zyprexa which is on the [facility] order. 06/11 Patient remains disorganized, delusional. Medicare Contact Specialist another staff person saying it was his son; telling travel writer he is going up by travel writer a car, telling other staff members the same. Saying he has to go downstairs and feed the baby... Review of chart shows that patient has been getting Zyprexa p.r.n. consistently which seems to subdue patients agitation for a bit however but has thus far not helped resolve psychotic symptoms. -it is unlikely that is scheduling Zyprexa will make much difference says he has gotten significant doses over the past 5 days; will leave his p.r.n. for now; however will monitor how much antipsychotic patient is getting and lower p.r.n. availability to b.i.d.. -Reviewed recent EKG and QTc Int : 489 ms which is mildly prolonged; will monitor 06/07 total daily dose 5 mg 06/08 15 mg 06/09 10 mg 06/10 15 mg 06/11 5 mg 06/12 remains delusional, disorganized, intermittently intrusive with peers, sometimes a little aggressive with peers but remains redirectable. Considering maybe switching to Zyprexa since Risperdal isn't helping with psychosis and perhaps Zyprexa can subdue agitated behaviors -outpatient team came to visit and report patient is far from baseline at which he had been for a decade until about a month ago 06/13 Remains delusional, disorganized. A little more agitated and today went after peer (unprovoked) at the phone, then went after another peer. Staff able to redirect each time and pt willing to take medication. Will dc risperdal since not making any differnece will instead try zyprexa 5mg TID...as a prn, it's helped subdue agitated behavior, though has not yet reduced delusional thinking. 06/14 Last night patient continued to be aggressive towards peers, delusional; travel writer on-call and discussed with nurse and gave Ativan 2 mg to see if that could subdue behaviors, trying to avoid giving more antipsychotic. However he remained intrusive and agitated towards peers, a little more difficult to redirect and so Thorazine 50 mg p.o. given. -Today, Patient less agitated and has not been aggressive towards peers; a little more calm and though he remains disorganized, delusional, a little easier to extract oneself conversation -typically patient is not aggressive towards peers and hopefully these behaviors will resolve with switch to Zyprexa; however he remains very intrusive, going into people's rooms, hanging up telephone calls, constantly asking nonsensical questions and he remains at risk for provoking peers. Will continue to monitor behaviors towards others and will strongly consider transferring patient to Geriatric unit for his own safety. Medicare Contact Specialist was Considering that perhaps patient maybe having some manic behaviors and might benefit from Depakote however since there is some mild improvement will continue with Zyprexa t.i.d. dosing for now and monitor PLAN: CV Guardian; pt has given permission to talk with his family 1:1 for accidental intrusiveness to others and needing to be redirected continue Zyprexa 5mg TID consider Depakote if aggressive behaviors return DC risperidone (was on 3 mg b.i.d. up from home dose which was a total daily dose of 3.5mg)) Mirtazapine 30 mg PO BEDTIME [facility] Benztropine Mesylate 0.5 mg PO BID [facility] Clonazepam 0.5 mg PO BID [facility] Lower PRN Zyprexa 5mg to BID (Zyprexa seems to help subdue agitation but not resolve psychosis; will lower dose available given mild prolongation of QTC) Omeprazole 20 mg PO DAILY@0630 [facility] Albuterol Sulfate 2 puff INHALE Q4H PRN Amlodipine Besylate 2.5 mg PO DAILY [facility]; Protocol Artificial Tears 1 drop EYE-BOTH Q4H PRN Aspirin 81 mg PO DAILY [facility] Atorvastatin Calcium 40 mg PO BEDTIME [facility] Ezetimibe 10 mg PO DAILY [facility] Ferrous Sulfate 324 mg PO DAILY [facility] Folic Acid 1 mg PO DAILY [facility] Hydroxyzine HCl 25 mg PO Q6H PRN Metoprolol Succinate 25 mg PO DAILY [facility]; Protocol Thiamine HCl 100 mg PO DAILY [facility] Trazodone HCl 100 mg PO BEDTIME [facility] effective to March 26, 2025: Risperdal up to 10mg daily (primary) Geodon up to 60mg daily Zyprexa up to 25mg daily later in evening pt complained of right sided chest pain; vitals WNL and pt not in any distress but given hx for CAD ordered EKG and trop Patient educated on: diagnosis Informed Consent: does not understand Reason for continued inpatient stay Substantial Risk for: inability to function Time Spent With Patient Time: Total time managing care of this patient today ____ minutes.
[2024-06-14] MEDS: Ibuprofen 600 MG TABLET PO ×2 (11:49→23:27)
[2024-06-14] MEDS: hydrOXYzine HCL 25 MG TABLET PO ×2 (11:49→18:35)
[2024-06-14 20:00] VITALS: BP 137/73; PULSE 75; RESP 15; TEMP 36.4; O2SAT 99
[2024-06-14] MEDS: traZODone HCL 100 MG TABLET PO (20:58)
[2024-06-14] MEDS: Mirtazapine 30 MG TABLET PO (20:58)
[2024-06-14] MEDS: Atorvastatin Calcium 40 MG TABLET PO (20:58)
[2024-06-15] MEDS: hydrOXYzine HCL 25 MG TABLET PO ×2 (00:19→09:58)
[2024-06-15] MEDS: OLANZapine 5 MG TABLET PO ×5 (02:27→20:52)
[2024-06-15 08:00] VITALS: BP 166/90; PULSE 98; TEMP 36; O2SAT 99
[2024-06-15 09:06] VITALS: BP 166/90
[2024-06-15] MEDS: amLODIPine Besylate 2.5 MG TABLET PO (09:06)
[2024-06-15] MEDS: clonazePAM 1 MG TABLET PO ×2 (09:06→13:17)
[2024-06-15] MEDS: Aspirin Enteric Coated 81 MG TABLET.DR PO (09:07)
[2024-06-15] MEDS: Nicotine Polacrilex 2 MG GUM 4 MG BUCCAL ×3 (09:07→16:59)
[2024-06-15] MEDS: Famotidine 20 MG TABLET PO (09:07)
[2024-06-15] MEDS: Benztropine Mesylate 0.5 MG TABLET PO ×2 (09:07→20:52)
[2024-06-15] MEDS: Ferrous Sulfate 324 MG TABLET.DR PO (09:07)
[2024-06-15] MEDS: Thiamine HCL 100 MG TABLET PO (09:07)
[2024-06-15] MEDS: Folic Acid 1 MG TABLET PO (09:07)
[2024-06-15] MEDS: Omeprazole 20 MG CAPSULE.DR PO (09:07)
[2024-06-15] MEDS: Metoprolol Succinate ER 25 MG TAB.ER.24H PO (09:07)
[2024-06-15] MEDS: Artificial Tears 15 ML DROPS 1 DROP EYE-BOTH ×3 (09:11→20:59)
[2024-06-15] MEDS: Ezetimibe 10 MG TABLET PO (09:16)
--- NOTE | 2024-06-15 09:28 | P.PNPSI_ITS ---
Subjective Subjective Date of Service: 06/15/24 Reason For Visit: Dysregulated Interim History: Met with patient; discussed with team; family meeting with patient's brother Chris and nephew Van and trend investigator Patient remains disorganized, intrusive and asks to go home. Patient agreed to sign 3 day notice. Chris reports that about once a year, patient gets dysregulated for a few weeks to a month, goes to the hospital and then seems to go back to normal. He said it happened last summer around April or May during which time patient had similar behaviors. He was on his way to his day program but never made it, picked up by police disheveled, confused, no shoes, wet and disoriented. Was hospitalized. Chris reports that since then he has been back to his baseline until about a month ago. He reports that at the apartment he had a sudden change, disoriented, using bad words, saying bad things to the neighbors, giving way is close. Chris thinks that patient is getting a little better since this admission and it is overall less intense than last year. Shared some additional history, the patient was but no children; they years ago. Grew up going to a school for people with intellectual disability. 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 Did get involved in some drugs, cocaine and huffing on the streets in [place]; does not think much drug abuses happened here other than cannabis Mental Status Exam Mental Status Exam Narrative: Pt is alert and oriented; behavior is is mostly (overly) friendly however increasing restless, wandering, accidentally intrusive to peers, sometimes momentarily aggressive with peers, disorganized, typically able to be redirected. remains able to be easily redirected; patient is not in distress; dressed in hospital attire, scruffy with adequate hygiene; mood is described as good and but affect is constricted and patient sometimes tearful; eye contact appropriate; Speech is repetitive, a little pressured, normal volume and prosody; moderate psychomotor agitation present as he keeps pacing, trying to enter any open door; thought process can be goal directed, but mostly tangential and disorganized, perseverative; Thought content is on various things, mostly delusional thoughts; denies any SI/HI. Denies AVH; Patients insight and judgment impaired. Diagnostics Vital Signs (24Hr): Vital Signs - 24 hr 06/14/24 20:00 06/15/24 08:00 06/15/24 09:06 Temperature 97.6 F 96.8 F Pulse Rate 75 98 Respiratory Rate 15 Blood Pressure 137/73 166/90 H 166/90 H Pulse Oximetry 99 99 Oxygen Delivery Method Room Air BMI result Body Mass Index 29.5 Labs 06/02/24 16:41 06/03/24 13:51 Imaging Radiology Impressions: ITS Impressions Chest X-Ray 06/09/24 10:55 IMPRESSION: No acute process. Mild hyperinflation. Head CT 06/09/24 11:20 IMPRESSION: 1. No evidence of acute intracranial hemorrhage or edematous territorial infarction. 2. Mild underlying microangiopathy. Medications Medications Current Medications Al Hydroxide/Mg Hydroxide (Magnesium Hydrox/Alum Hydrox 30 Ml Oral.Susp) 30 ml PO Q6H PRN PRN Reason: Heartburn/Nausea Last Admin: 06/13/24 19:50 Dose: 30 ml Albuterol Sulfate (Albuterol Sulfate 90 Mcg 8 Gm Inhaler) 2 puff INHALE Q4H PRN PRN Reason: Wheezing Last Admin: 06/12/24 23:53 Dose: 2 puff Amlodipine Besylate (Amlodipine Besylate 2.5 Mg Tablet) 2.5 mg PO DAILY [facility]; Protocol Last Admin: 06/15/24 09:06 Dose: 2.5 mg Artificial Tears (Artificial Tears 15 Ml Drops) 1 drop EYE-BOTH Q4H PRN PRN Reason: Dry Eyes Last Admin: 06/15/24 09:11 Dose: 1 drop Aspirin (Aspirin Enteric Coated 81 Mg Tablet.) 81 mg PO DAILY [facility] Last Admin: 06/15/24 09:07 Dose: 81 mg Atorvastatin Calcium (Atorvastatin Calcium 40 Mg Tablet) 40 mg PO BEDTIME [facility] Last Admin: 06/14/24 20:58 Dose: 40 mg Benztropine Mesylate (Benztropine Mesylate 0.5 Mg Tablet) 0.5 mg PO BID [facility] Last Admin: 06/15/24 09:07 Dose: 0.5 mg Clonazepam (Clonazepam 1 Mg Tablet) 1 mg PO BID@0900,1300 [facility] Last Admin: 06/15/24 09:06 Dose: 1 mg Ezetimibe (Ezetimibe 10 Mg Tablet) 10 mg PO DAILY [facility] Last Admin: 06/15/24 09:16 Dose: 10 mg Famotidine (Famotidine 20 Mg Tablet) 20 mg PO DAILY [facility] Last Admin: 06/15/24 09:07 Dose: 20 mg Ferrous Sulfate (Ferrous Sulfate 324 Mg Tablet.) 324 mg PO DAILY [facility] Last Admin: 06/15/24 09:07 Dose: 324 mg Folic Acid (Folic Acid 1 Mg Tablet) 1 mg PO DAILY [facility] Last Admin: 06/15/24 09:07 Dose: 1 mg Hydroxyzine HCl (Hydroxyzine Hcl 25 Mg Tablet) 25 mg PO Q6H PRN PRN Reason: Anxiety Last Admin: 06/15/24 00:19 Dose: 25 mg Ibuprofen (Ibuprofen 600 Mg Tablet) 600 mg PO Q8H PRN PRN Reason: Pain, Mild (Pain Scale 1-3) Last Admin: 06/14/24 23:27 Dose: 600 mg Magnesium Hydroxide (Milk Of Magnesia 30 Ml Oral.Susp) 30 ml PO DAILY PRN PRN Reason: Constipation Last Admin: 06/12/24 09:33 Dose: 30 ml Metoprolol Succinate (Metoprolol Succinate Er 25 Mg Tab.Er.24h) 25 mg PO DAILY [facility]; Protocol Last Admin: 06/15/24 09:07 Dose: 25 mg Mirtazapine (Mirtazapine 30 Mg Tablet) 30 mg PO BEDTIME [facility] Last Admin: 06/14/24 20:58 Dose: 30 mg Nicotine Polacrilex (Nicotine Polacrilex 2 Mg Gum) 4 mg BUCCAL Q2H PRN PRN Reason: Nicotine Cravings Last Admin: 06/15/24 09:07 Dose: 4 mg Nicotine Polacrilex (Nicotine Polacrilex 2 Mg Gum) 4 mg BUCCAL Q2H PRN PRN Reason: Nicotine Cravings Last Admin: 06/05/24 21:42 Dose: 4 mg Olanzapine (Olanzapine 5 Mg Tablet) 5 mg PO TID [facility] Last Admin: 06/15/24 09:06 Dose: 5 mg Olanzapine (Olanzapine 5 Mg Tablet) 5 mg PO TID PRN PRN Reason: psychosis, agitation Last Admin: 06/15/24 02:27 Dose: 5 mg Omeprazole (Omeprazole 20 Mg Capsule.) 20 mg PO DAILY@0630 [facility] Last Admin: 06/15/24 09:07 Dose: 20 mg Thiamine HCl (Thiamine Hcl 100 Mg Tablet) 100 mg PO DAILY [facility] Last Admin: 06/15/24 09:07 Dose: 100 mg Trazodone HCl (Trazodone Hcl 100 Mg Tablet) 100 mg PO BEDTIME [facility] Last Admin: 06/14/24 20:58 Dose: 100 mg Allergies Allergies Allergy/AdvReac Type Severity Reaction Status Date / Time acetaminophen Allergy Unknown PANADOL = Verified 06/02/24 16:01 ACETAMINOPHEN SHELLFISH Allergy Mild PATIENT Uncoded 06/02/24 16:01 REPORTS BURNING SENSATION THROUGHOUT OPIATES Allergy Unknown BECAME Uncoded 06/02/24 16:01 ADDICTED PANADOL Allergy Unknown UNKNOWN Uncoded 06/02/24 16:01 Assessment & Plan Assessment & Plan (1) Schizoaffective disorder: Qualifiers: Schizoaffective disorder type: unspecified Qualified Code(s): F25.9 - Schizoaffective disorder, unspecified Status: Acute Code(s): F25.9 - Schizoaffective disorder, unspecified (2) Intellectual delay: Status: Acute Code(s): F81.9 - Developmental disorder of scholastic skills, unspecified (3) CAD (coronary artery disease): Status: Acute Code(s): I25.10 - Atherosclerotic heart disease of [place] coronary artery without angina pectoris Plan Patient 59 yr old Romanian-speaking male with schizoaffective disorder, cognitive delay, who lives with his mother, recently discharged from on 05/20/2024 who presents via family for increased paranoia, anger and confusion. At last admission there was the thought that patient was not taking all of his medications, since the bulk of his Risperdal was prescribed at bedtime and the [facility] only came in the morning. During this last admission, Risperdal changed so that he was taking the bulk of it in the morning and with VNA, seems he is taking his medications. Despite this, family reports that his behaviors are worsening. On the unit he is friendly and calm; he is confused saying he wants to go see his children, caring a pillow in his arms and calling it his baby. Formulation/clinical reasoning: It is not clear what is causing decline given that he is most likely taking his medications regularly. Some speculation that he might be abusing substance when out and about in neighborhood however UDS is negative. Setting up family meeting to discuss. Hospital course: 06/05 Patient denies any AH to travel writer. Denies any SI or HI and says I never look for problems... I am never aggressive... I am good... Although he denies AH, patient says there is too much noise on the unit, and that people are touching his face. Earlier he had told another staff that he was having AH to hurt himself but that he was able to ignore. Patient denies any current drug use; he adds that he used to live on the streets but now he goes to catholic. Priest asked about why he had been carrying a pillow around calling it his baby; patient did not really answer but said that he has a son and a granddaughter and that his is . Patient said he wanted to go home but then agreed to wait for meeting with outpatient staff this next Saturday. -patient does seem more confused than he did at last admission. Will increase Risperdal 06/08 Patient remains disorganized, able to be goal-directed on some topics such as wanting is close but otherwise trying to enter in any open door he sees and needing frequent redirection. SW and travel writer Discussed case with outpt team: Efraín Gray, MICHAELS Nimisha Glaser DDS Marlyn Brennan [facility] No one is sure why patient has decompensated after decades of remaining stable on Risperdal. Says that for some reason this past month he has been more paranoid, more disorganized and when he returned from last admission he was not quite back to baseline. The past weeks patient was given away clothing on the street. This past admission was following patient argument with a neighbor. Apparently he had been peeking into this neighbor's window, scaring the neighbor and scared the neighbor's kids. They had a verbal altercation; staff arrived and patient kept saying he was going to go over to the neighbor's and take care of the neighbor... No actual threat was made and patient has no history of aggression but because of this he was taken to the hospital. Bret has discussed eviction of both patient and his elderly mother if behaviors continue. Team wondered if patient was not taking his medications however travel writer explained that the bulk of his medications were switched so the [facility]NA was giving him the 3 mg of Risperdal out of the 3.5 total daily dose making this less likely the issue. They say at baseline he paces and is anxious but he pretty much make sense and though he may say some delusional things his conversations are overall able to remain grounded in reality. Discussed various options including temporary housing and likelihood that patient will at some point in the near future need some type of group living arrangement as his mother is elderly and with some dementia Unclear why patient has decompensated; Increased Risperdal to see if that can help. Thus far no clear organic etiology; will get additional labs to trying rule out other possible causes, including HIV and RPR, magnesium, B12/folate; will likely get head CT, though anticipate that results will be unremarkable. UDS was negative and UA showed no bacterial growth. Will try to get more collateral from family 06/09 Patient remains confused and disorganized, jumping from topic to topic. He agrees to remain to have meeting on Saturday but otherwise says he is missing home. Patient denies any chest pain but passes hard to say that he has a heart condition and has a surgically implanted mesh. Patient starts to cry and says that people are laughing at him that he can hear them doing so; he also said that a staff person's came in to his room last night and choked. Patient started taking should often group today. Looking for any organic contribution to patient's decompensation, however: labs thus far unremarkable; magnesium/calcium WNL; electrolytes WNL Chest x-ray pending Repeat UA unremarkable; no evidence of UTI -Head CT however did show evidence of Mild underlying microangiopathy Which could indicate vascular dementia as a possible contribution, which does seem to worsen in a stepwise fashion Will continue with current medication regimen; if no improvement will consider switching to Zyprexa which is on the [facility] order. 06/11 Patient remains disorganized, delusional. Priest another staff person saying it was his son; telling travel writer he is going up by travel writer a car, telling other staff members the same. Saying he has to go downstairs and feed the baby... Review of chart shows that patient has been getting Zyprexa p.r.n. consistently which seems to subdue patients agitation for a bit however but has thus far not helped resolve psychotic symptoms. -it is unlikely that is scheduling Zyprexa will make much difference says he has gotten significant doses over the past 5 days; will leave his p.r.n. for now; however will monitor how much antipsychotic patient is getting and lower p.r.n. availability to b.i.d.. -Reviewed recent EKG and QTc Int : 489 ms which is mildly prolonged; will monitor 06/07 total daily dose 5 mg 06/08 15 mg 06/09 10 mg 06/10 15 mg 06/11 5 mg 06/12 remains delusional, disorganized, intermittently intrusive with peers, sometimes a little aggressive with peers but remains redirectable. Considering maybe switching to Zyprexa since Risperdal isn't helping with psychosis and perhaps Zyprexa can subdue agitated behaviors -outpatient team came to visit and report patient is far from baseline at which he had been for a decade until about a month ago 06/13 Remains delusional, disorganized. A little more agitated and today went after peer (unprovoked) at the phone, then went after another peer. Staff able to redirect each time and pt willing to take medication. Will dc risperdal since not making any differnece will instead try zyprexa 5mg TID...as a prn, it's helped subdue agitated behavior, though has not yet reduced delusional thinking. 06/14 Last night patient continued to be aggressive towards peers, delusional; travel writer on-call and discussed with nurse and gave Ativan 2 mg to see if that could subdue behaviors, trying to avoid giving more antipsychotic. However he remained intrusive and agitated towards peers, a little more difficult to redirect and so Thorazine 50 mg p.o. given. -Today, Patient less agitated and has not been aggressive towards peers; a little more calm and though he remains disorganized, delusional, a little easier to extract oneself conversation -typically patient is not aggressive towards peers and hopefully these behaviors will resolve with switch to Zyprexa; however he remains very intrusive, going into people's rooms, hanging up telephone calls, constantly asking nonsensical questions and he remains at risk for provoking peers. Will continue to monitor behaviors towards others and will strongly consider transferring patient to Geriatric unit for his own safety. Priest was Considering that perhaps patient maybe having some manic behaviors and might benefit from Depakote however since there is some mild improvement will continue with Zyprexa t.i.d. dosing for now and monitor 06/15 Patient remains disorganized, intrusive and asks to go home. Patient agreed to sign 3 day notice. Collateral: Chris reports that about once a year, patient gets dysregulated for a few weeks to a month, goes to the hospital and then seems to go back to normal. He said it happened last summer around April or May during which time patient had similar behaviors. He was on his way to his day program but never made it, picked up by police disheveled, confused, no shoes, wet and disoriented. Was hospitalized. Chris reports that since then he has been back to his baseline until about a month ago. He reports that at the apartment he had a sudden change, disoriented, using bad words, saying bad things to the neighbors, giving way is close. Chris thinks that patient is getting a little better since this admission and it is overall less intense than last year. Shared some additional history, the patient was but no children; they years ago. Grew up going to a school for people with intellectual disability. 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 Did get involved in some drugs, cocaine and huffing on the streets in [place]; does not think much drug abuses happened here other than cannabis Given collateral information director again thinks that patient might benefit from Depakote since he he continues to have manic behaviors which per his brother, are episodic. PLAN: CV Guardian; pt has given permission to talk with his family 1:1 for accidental intrusiveness to others and needing to be redirected Start Depakote continue Zyprexa 5mg TID consider Depakote if aggressive behaviors return DC risperidone (was on 3 mg b.i.d. up from home dose which was a total daily dose of 3.5mg)) Mirtazapine 30 mg PO BEDTIME [facility] Benztropine Mesylate 0.5 mg PO BID [facility] Clonazepam 0.5 mg PO BID [facility] Lower PRN Zyprexa 5mg to BID (Zyprexa seems to help subdue agitation but not resolve psychosis; will lower dose available given mild prolongation of QTC) Omeprazole 20 mg PO DAILY@0630 [facility] Albuterol Sulfate 2 puff INHALE Q4H PRN Amlodipine Besylate 2.5 mg PO DAILY [facility]; Protocol Artificial Tears 1 drop EYE-BOTH Q4H PRN Aspirin 81 mg PO DAILY [facility] Atorvastatin Calcium 40 mg PO BEDTIME [facility] Ezetimibe 10 mg PO DAILY [facility] Ferrous Sulfate 324 mg PO DAILY [facility] Folic Acid 1 mg PO DAILY [facility] Hydroxyzine HCl 25 mg PO Q6H PRN Metoprolol Succinate 25 mg PO DAILY [facility]; Protocol Thiamine HCl 100 mg PO DAILY [facility] Trazodone HCl 100 mg PO BEDTIME [facility] effective to March 26, 2025: Risperdal up to 10mg daily (primary) Geodon up to 60mg daily Zyprexa up to 25mg daily later in evening pt complained of right sided chest pain; vitals WNL and pt not in any distress but given hx for CAD ordered EKG and trop Patient educated on: diagnosis, medication risk/benefits and therapeutic strategies Informed Consent: understands, does not understand and further education needed Reason for continued inpatient stay Substantial Risk for: inability to function Time Spent With Patient Time: Total time managing care of this patient today ____ minutes.
[2024-06-15] MEDS: Albuterol Sulfate 90 MCG 8 GM INHALER 2 PUFF INHALE (10:24)
[2024-06-15 20:00] VITALS: BP 133/68; PULSE 70; RESP 16; TEMP 36.1; O2SAT 99
[2024-06-15] MEDS: Mirtazapine 30 MG TABLET PO (20:52)
[2024-06-15] MEDS: Atorvastatin Calcium 40 MG TABLET PO (20:52)
[2024-06-15] MEDS: traZODone HCL 100 MG TABLET PO (20:52)
[2024-06-16] MEDS: Artificial Tears 15 ML DROPS 1 DROP EYE-BOTH (06:33)
[2024-06-16] MEDS: Omeprazole 20 MG CAPSULE.DR PO (06:35)
[2024-06-16] MEDS: Nicotine Polacrilex 2 MG GUM 4 MG BUCCAL ×5 (06:39→20:34)
[2024-06-16 08:00] VITALS: BP 153/74; PULSE 75; RESP 18; TEMP 36.6; O2SAT 96
[2024-06-16] MEDS: Metoprolol Succinate ER 25 MG TAB.ER.24H PO (09:08)
[2024-06-16] MEDS: Aspirin Enteric Coated 81 MG TABLET.DR PO (09:08)
[2024-06-16] MEDS: Benztropine Mesylate 0.5 MG TABLET PO ×2 (09:08→20:28)
[2024-06-16] MEDS: OLANZapine 5 MG TABLET PO ×2 (09:08→16:09)
[2024-06-16] MEDS: Thiamine HCL 100 MG TABLET PO (09:08)
[2024-06-16] MEDS: clonazePAM 1 MG TABLET PO ×2 (09:08→13:21)
[2024-06-16] MEDS: Folic Acid 1 MG TABLET PO (09:09)
[2024-06-16] MEDS: Ferrous Sulfate 324 MG TABLET.DR PO (09:09)
[2024-06-16] MEDS: Ezetimibe 10 MG TABLET PO (09:09)
[2024-06-16] MEDS: Famotidine 20 MG TABLET PO (09:09)
[2024-06-16] MEDS: amLODIPine Besylate 2.5 MG TABLET PO (09:09)
[2024-06-16] MEDS: Albuterol Sulfate 90 MCG 8 GM INHALER 2 PUFF INHALE (10:00)
--- NOTE | 2024-06-16 10:08 | P.PNPSI_ITS ---
Subjective Subjective Date of Service: 06/16/24 Reason For Visit: Dysregulated Interim History: Met with patient; discussed with team Patient remains disorganized little more intrusive with peers, needing constant redirection and intervention from staff as he rushed at a peer. Mental Status Exam Mental Status Exam Narrative: Pt is alert and oriented; behavior is is mostly (overly) friendly however increasing restless, wandering, accidentally intrusive to peers, sometimes momentarily aggressive with peers, disorganized, typically able to be redirected. remains able to be easily redirected; patient is not in distress; dressed in hospital attire, scruffy with adequate hygiene; mood is described as good and but affect is constricted and patient sometimes tearful; eye contact appropriate; Speech is repetitive, a little pressured, normal volume and prosody; moderate psychomotor agitation present as he keeps pacing, trying to enter any open door; thought process can be goal directed, but mostly tangential and disorganized, perseverative; Thought content is on various things, mostly delusional thoughts; denies any SI/HI. Denies AVH; Patients insight and judgment impaired. Diagnostics Vital Signs (24Hr): Vital Signs - 24 hr 06/15/24 20:00 06/16/24 08:00 Temperature 97 F 97.9 F Pulse Rate 70 75 Respiratory Rate 16 18 Blood Pressure 133/68 153/74 H Pulse Oximetry 99 96 Oxygen Delivery Method Room Air Room Air BMI result Body Mass Index 29.5 Labs 06/02/24 16:41 06/03/24 13:51 Imaging Radiology Impressions: ITS Impressions Chest X-Ray 06/09/24 10:55 IMPRESSION: No acute process. Mild hyperinflation. Head CT 06/09/24 11:20 IMPRESSION: 1. No evidence of acute intracranial hemorrhage or edematous territorial infarction. 2. Mild underlying microangiopathy. Medications Medications Current Medications Al Hydroxide/Mg Hydroxide (Magnesium Hydrox/Alum Hydrox 30 Ml Oral.Susp) 30 ml PO Q6H PRN PRN Reason: Heartburn/Nausea Last Admin: 06/13/24 19:50 Dose: 30 ml Albuterol Sulfate (Albuterol Sulfate 90 Mcg 8 Gm Inhaler) 2 puff INHALE Q4H PRN PRN Reason: Wheezing Last Admin: 06/16/24 10:00 Dose: 2 puff Amlodipine Besylate (Amlodipine Besylate 2.5 Mg Tablet) 2.5 mg PO DAILY [facility]; Protocol Last Admin: 06/16/24 09:09 Dose: 2.5 mg Artificial Tears (Artificial Tears 15 Ml Drops) 1 drop EYE-BOTH Q4H PRN PRN Reason: Dry Eyes Last Admin: 06/16/24 06:33 Dose: 1 drop Aspirin (Aspirin Enteric Coated 81 Mg Tablet.) 81 mg PO DAILY [facility] Last Admin: 06/16/24 09:08 Dose: 81 mg Atorvastatin Calcium (Atorvastatin Calcium 40 Mg Tablet) 40 mg PO BEDTIME [facility] Last Admin: 06/15/24 20:52 Dose: 40 mg Benztropine Mesylate (Benztropine Mesylate 0.5 Mg Tablet) 0.5 mg PO BID [facility] Last Admin: 06/16/24 09:08 Dose: 0.5 mg Clonazepam (Clonazepam 1 Mg Tablet) 1 mg PO BID@0900,1300 [facility] Last Admin: 06/16/24 09:08 Dose: 1 mg Ezetimibe (Ezetimibe 10 Mg Tablet) 10 mg PO DAILY [facility] Last Admin: 06/16/24 09:09 Dose: 10 mg Famotidine (Famotidine 20 Mg Tablet) 20 mg PO DAILY [facility] Last Admin: 06/16/24 09:09 Dose: 20 mg Ferrous Sulfate (Ferrous Sulfate 324 Mg Tablet.) 324 mg PO DAILY [facility] Last Admin: 06/16/24 09:09 Dose: 324 mg Folic Acid (Folic Acid 1 Mg Tablet) 1 mg PO DAILY [facility] Last Admin: 06/16/24 09:09 Dose: 1 mg Hydroxyzine HCl (Hydroxyzine Hcl 25 Mg Tablet) 25 mg PO Q6H PRN PRN Reason: Anxiety Last Admin: 06/15/24 09:58 Dose: 25 mg Ibuprofen (Ibuprofen 600 Mg Tablet) 600 mg PO Q8H PRN PRN Reason: Pain, Mild (Pain Scale 1-3) Last Admin: 06/14/24 23:27 Dose: 600 mg Magnesium Hydroxide (Milk Of Magnesia 30 Ml Oral.Susp) 30 ml PO DAILY PRN PRN Reason: Constipation Last Admin: 06/12/24 09:33 Dose: 30 ml Metoprolol Succinate (Metoprolol Succinate Er 25 Mg Tab.Er.24h) 25 mg PO DAILY [facility]; Protocol Last Admin: 06/16/24 09:08 Dose: 25 mg Mirtazapine (Mirtazapine 30 Mg Tablet) 30 mg PO BEDTIME [facility] Last Admin: 06/15/24 20:52 Dose: 30 mg Nicotine Polacrilex (Nicotine Polacrilex 2 Mg Gum) 4 mg BUCCAL Q2H PRN PRN Reason: Nicotine Cravings Last Admin: 06/16/24 10:00 Dose: 4 mg Nicotine Polacrilex (Nicotine Polacrilex 2 Mg Gum) 4 mg BUCCAL Q2H PRN PRN Reason: Nicotine Cravings Last Admin: 06/05/24 21:42 Dose: 4 mg Olanzapine (Olanzapine 5 Mg Tablet) 5 mg PO TID [facility] Last Admin: 06/16/24 09:08 Dose: 5 mg Olanzapine (Olanzapine 5 Mg Tablet) 5 mg PO TID PRN PRN Reason: psychosis, agitation Last Admin: 06/15/24 09:58 Dose: 5 mg Omeprazole (Omeprazole 20 Mg Capsule.Dr) 20 mg PO DAILY@0630 [facility] Last Admin: 06/16/24 06:35 Dose: 20 mg Thiamine HCl (Thiamine Hcl 100 Mg Tablet) 100 mg PO DAILY [facility] Last Admin: 06/16/24 09:08 Dose: 100 mg Trazodone HCl (Trazodone Hcl 100 Mg Tablet) 100 mg PO BEDTIME [facility] Last Admin: 06/15/24 20:52 Dose: 100 mg Allergies Allergies Allergy/AdvReac Type Severity Reaction Status Date / Time acetaminophen Allergy Unknown PANADOL = Verified 06/02/24 16:01 ACETAMINOPHEN SHELLFISH Allergy Mild PATIENT Uncoded 06/02/24 16:01 REPORTS BURNING SENSATION THROUGHOUT OPIATES Allergy Unknown BECAME Uncoded 06/02/24 16:01 ADDICTED PANADOL Allergy Unknown UNKNOWN Uncoded 06/02/24 16:01 Assessment & Plan Assessment & Plan (1) Schizoaffective disorder: Qualifiers: Schizoaffective disorder type: unspecified Qualified Code(s): F25.9 - Schizoaffective disorder, unspecified Status: Acute Code(s): F25.9 - Schizoaffective disorder, unspecified (2) Intellectual delay: Status: Acute Code(s): F81.9 - Developmental disorder of scholastic skills, unspecified (3) CAD (coronary artery disease): Status: Acute Code(s): I25.10 - Atherosclerotic heart disease of torres martinez coronary artery without angina pectoris Plan Patient 59 yr old Albanian-speaking male with schizoaffective disorder, cognitive delay, who lives with his mother, recently discharged from on 05/20/2024 who presents via family for increased paranoia, anger and confusion. At last admission there was the thought that patient was not taking all of his medications, since the bulk of his Risperdal was prescribed at bedtime and the [facility] only came in the morning. During this last admission, Risperdal changed so that he was taking the bulk of it in the morning and with VNA, seems he is taking his medications. Despite this, family reports that his behaviors are worsening. On the unit he is friendly and calm; he is confused saying he wants to go see his children, caring a pillow in his arms and calling it his baby. Formulation/clinical reasoning: It is not clear what is causing decline given that he is most likely taking his medications regularly. Some speculation that he might be abusing substance when out and about in neighborhood however UDS is negative. Setting up family meeting to discuss. Hospital course: 06/05 Patient denies any AH to investigative writer. Denies any SI or HI and says I never look for problems... I am never aggressive... I am good... Although he denies AH, patient says there is too much noise on the unit, and that people are touching his face. Earlier he had told another staff that he was having AH to hurt himself but that he was able to ignore. Patient denies any current drug use; he adds that he used to live on the streets but now he goes to [facility]. Matching Machine Operator asked about why he had been carrying a pillow around calling it his baby; patient did not really answer but said that he has a son and a granddaughter and that his is . Patient said he wanted to go home but then agreed to wait for meeting with outpatient staff this next Saturday. -patient does seem more confused than he did at last admission. Will increase Risperdal 06/08 Patient remains disorganized, able to be goal-directed on some topics such as wanting is close but otherwise trying to enter in any open door he sees and needing frequent redirection. SW and investigative writer Discussed case with outpt team: Efraín Gray, SHIMA Brennan [place] No one is sure why patient has decompensated after decades of remaining stable on Risperdal. Says that for some reason this past month he has been more paranoid, more disorganized and when he returned from last admission he was not quite back to baseline. The past weeks patient was given away clothing on the street. This past admission was following patient argument with a neighbor. Apparently he had been peeking into this neighbor's window, scaring the neighbor and scared the neighbor's kids. They had a verbal altercation; staff arrived and patient kept saying he was going to go over to the neighbor's and take care of the neighbor... No actual threat was made and patient has no history of aggression but because of this he was taken to the hospital. Bert has discussed eviction of both patient and his elderly mother if behaviors continue. Team wondered if patient was not taking his medications however investigative writer explained that the bulk of his medications were switched so the [facility]NA was giving him the 3 mg of Risperdal out of the 3.5 total daily dose making this less likely the issue. They say at baseline he paces and is anxious but he pretty much make sense and though he may say some delusional things his conversations are overall able to remain grounded in reality. Discussed various options including temporary housing and likelihood that patient will at some point in the near future need some type of group living arrangement as his mother is elderly and with some dementia Unclear why patient has decompensated; Increased Risperdal to see if that can help. Thus far no clear organic etiology; will get additional labs to trying rule out other possible causes, including HIV and RPR, magnesium, B12/folate; will likely get head CT, though anticipate that results will be unremarkable. UDS was negative and UA showed no bacterial growth. Will try to get more collateral from family 06/09 Patient remains confused and disorganized, jumping from topic to topic. He agrees to remain to have meeting on Saturday but otherwise says he is missing home. Patient denies any chest pain but passes hard to say that he has a heart condition and has a surgically implanted mesh. Patient starts to cry and says that people are laughing at him that he can hear them doing so; he also said that a staff person's came in to his room last night and choked. Patient started taking should often group today. Looking for any organic contribution to patient's decompensation, however: labs thus far unremarkable; magnesium/calcium WNL; electrolytes WNL Chest x-ray pending Repeat UA unremarkable; no evidence of UTI -Head CT however did show evidence of Mild underlying microangiopathy Which could indicate vascular dementia as a possible contribution, which does seem to worsen in a stepwise fashion Will continue with current medication regimen; if no improvement will consider switching to Zyprexa which is on the [facility] order. 06/11 Patient remains disorganized, delusional. Matching Machine Operator another staff person saying it was his son; telling investigative writer he is going up by investigative writer a car, telling other staff members the same. Saying he has to go downstairs and feed the baby... Review of chart shows that patient has been getting Zyprexa p.r.n. consistently which seems to subdue patients agitation for a bit however but has thus far not helped resolve psychotic symptoms. -it is unlikely that is scheduling Zyprexa will make much difference says he has gotten significant doses over the past 5 days; will leave his p.r.n. for now; however will monitor how much antipsychotic patient is getting and lower p.r.n. availability to b.i.d.. -Reviewed recent EKG and QTc Int : 489 ms which is mildly prolonged; will monitor 06/07 total daily dose 5 mg 06/08 15 mg 06/09 10 mg 06/10 15 mg 06/11 5 mg 06/12 remains delusional, disorganized, intermittently intrusive with peers, sometimes a little aggressive with peers but remains redirectable. Considering maybe switching to Zyprexa since Risperdal isn't helping with psychosis and perhaps Zyprexa can subdue agitated behaviors -outpatient team came to visit and report patient is far from baseline at which he had been for a decade until about a month ago 06/13 Remains delusional, disorganized. A little more agitated and today went after peer (unprovoked) at the phone, then went after another peer. Staff able to redirect each time and pt willing to take medication. Will dc risperdal since not making any differnece will instead try zyprexa 5mg TID...as a prn, it's helped subdue agitated behavior, though has not yet reduced delusional thinking. 06/14 Last night patient continued to be aggressive towards peers, delusional; investigative writer on-call and discussed with nurse and gave Ativan 2 mg to see if that could subdue behaviors, trying to avoid giving more antipsychotic. However he remained intrusive and agitated towards peers, a little more difficult to redirect and so Thorazine 50 mg p.o. given. -Today, Patient less agitated and has not been aggressive towards peers; a little more calm and though he remains disorganized, delusional, a little easier to extract oneself conversation -typically patient is not aggressive towards peers and hopefully these behaviors will resolve with switch to Zyprexa; however he remains very intrusive, going into people's rooms, hanging up telephone calls, constantly asking nonsensical questions and he remains at risk for provoking peers. Will continue to monitor behaviors towards others and will strongly consider transferring patient to Geriatric unit for his own safety. Matching Machine Operator was Considering that perhaps patient maybe having some manic behaviors and might benefit from Depakote however since there is some mild improvement will continue with Zyprexa t.i.d. dosing for now and monitor 06/15 Patient remains disorganized, intrusive and asks to go home. Patient agreed to sign 3 day notice. Collateral: Chris reports that about once a year, patient gets dysregulated for a few weeks to a month, goes to the hospital and then seems to go back to normal. He said it happened last summer around April or May during which time patient had similar behaviors. He was on his way to his day program but never made it, picked up by police disheveled, confused, no shoes, wet and disoriented. Was hospitalized. Chris reports that since then he has been back to his baseline until about a month ago. He reports that at the apartment he had a sudden change, disoriented, using bad words, saying bad things to the neighbors, giving way is close. Chris thinks that patient is getting a little better since this admission and it is overall less intense than last year. Shared some additional history, the patient was but no children; they years ago. Grew up going to a school for people with intellectual disability. 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 Did get involved in some drugs, cocaine and huffing on the streets in [place]; does not think much drug abuses happened here other than cannabis -Given collateral information services consultant again thinks that patient might benefit from Depakote since he he continues to have manic behaviors which per his brother, are episodic. 06/16 Starting Depakote; will continue with Zyprexa for now but will likely go back to Risperdal since it can be once a day dosing and seems to maintain patient for nearly a year in between manic episodes -discussed with patient need to remain on unit for medication, discussed diagnosis; patient continued to insist he wanted to go home and would not retract 3 day PLAN: 3 day notice Guardian; pt has given permission to talk with his family 1:1 for accidental intrusiveness to others and needing to be redirected Start Depakote Ir 250mg one time START Depakote ER 500mg qhs continue Zyprexa 5mg TID consider Depakote if aggressive behaviors return DC risperidone (was on 3 mg b.i.d. up from home dose which was a total daily dose of 3.5mg)) Mirtazapine 30 mg PO BEDTIME [facility] Benztropine Mesylate 0.5 mg PO BID [facility] Clonazepam 0.5 mg PO BID [facility] Lower PRN Zyprexa 5mg to BID (Zyprexa seems to help subdue agitation but not resolve psychosis; will lower dose available given mild prolongation of QTC) Omeprazole 20 mg PO DAILY@0630 [facility] Albuterol Sulfate 2 puff INHALE Q4H PRN Amlodipine Besylate 2.5 mg PO DAILY [facility]; Protocol Artificial Tears 1 drop EYE-BOTH Q4H PRN Aspirin 81 mg PO DAILY [facility] Atorvastatin Calcium 40 mg PO BEDTIME [facility] Ezetimibe 10 mg PO DAILY [facility] Ferrous Sulfate 324 mg PO DAILY [facility] Folic Acid 1 mg PO DAILY [facility] Hydroxyzine HCl 25 mg PO Q6H PRN Metoprolol Succinate 25 mg PO DAILY [facility]; Protocol Thiamine HCl 100 mg PO DAILY [facility] Trazodone HCl 100 mg PO BEDTIME [facility] effective to March 26, 2025: Risperdal up to 10mg daily (primary) Geodon up to 60mg daily Zyprexa up to 25mg daily later in evening pt complained of right sided chest pain; vitals WNL and pt not in any distress but given hx for CAD ordered EKG and trop Patient educated on: diagnosis and medication risk/benefits Informed Consent: does not understand Reason for continued inpatient stay Substantial Risk for: inability to function Time Spent With Patient Time: Total time managing care of this patient today ____ minutes.
[2024-06-16] MEDS: Divalproex Sodium 250 MG TABLET.DR PO (13:21)
[2024-06-16] MEDS: OLANZapine 7.5 MG TABLET PO ×2 (15:11→20:28)
[2024-06-16] MEDS: Mirtazapine 30 MG TABLET PO (20:28)
[2024-06-16] MEDS: traZODone HCL 100 MG TABLET PO (20:28)
[2024-06-16] MEDS: Atorvastatin Calcium 40 MG TABLET PO (20:28)
[2024-06-16] MEDS: Divalproex Sodium ER 500 MG TAB.ER.24H PO (20:28)
[2024-06-17] MEDS: Ibuprofen 600 MG TABLET PO ×2 (00:03→16:50)
[2024-06-17] MEDS: Nicotine Polacrilex 2 MG GUM 4 MG BUCCAL (00:07)
[2024-06-17] MEDS: Omeprazole 20 MG CAPSULE.DR PO (07:11)
[2024-06-17 08:00] VITALS: BP 133/69; PULSE 67; RESP 18; TEMP 36.8; O2SAT 97
[2024-06-17] MEDS: Benztropine Mesylate 0.5 MG TABLET PO ×2 (08:31→20:51)
[2024-06-17] MEDS: OLANZapine 7.5 MG TABLET PO ×3 (08:31→20:51)
[2024-06-17] MEDS: clonazePAM 1 MG TABLET PO ×2 (08:31→13:31)
[2024-06-17] MEDS: Ferrous Sulfate 324 MG TABLET.DR PO (08:31)
[2024-06-17] MEDS: amLODIPine Besylate 2.5 MG TABLET PO (08:32)
[2024-06-17] MEDS: Folic Acid 1 MG TABLET PO (08:32)
[2024-06-17] MEDS: Aspirin Enteric Coated 81 MG TABLET.DR PO (08:32)
[2024-06-17] MEDS: Ezetimibe 10 MG TABLET PO (08:32)
[2024-06-17] MEDS: Famotidine 20 MG TABLET PO (08:32)
[2024-06-17] MEDS: Thiamine HCL 100 MG TABLET PO (08:32)
[2024-06-17] MEDS: Metoprolol Succinate ER 25 MG TAB.ER.24H PO (08:32)
--- NOTE | 2024-06-17 10:13 | HO.PSYCHPN ---
Subjective Subjective Date of Service: 06/17/24 Reason For Visit: Dysregulated Interim History: Met with patient; discussed with team Patient remains with same presentation, disorganized speech behavior, intrusive, requiring constant redirection by one-to-one. Discussed with team who agree that for patient's safety, better to move him to the geriatric unit as his intrusiveness to peers on regular adult unit are putting him at risk. Patient has thus far been able to be consistently redirected by one-to-one which will continue on the geriatric unit for now. Mental Status Exam Mental Status Exam Narrative: Pt is alert and oriented; behavior is is mostly (overly) friendly however increasing restless, wandering, accidentally intrusive to peers, sometimes momentarily aggressive with peers, disorganized, typically able to be redirected. remains able to be easily redirected; patient is not in distress; dressed in hospital attire, scruffy with adequate hygiene; mood is described as good and but affect is constricted and patient sometimes tearful; eye contact appropriate; Speech is repetitive, a little pressured, normal volume and prosody; moderate psychomotor agitation present as he keeps pacing, trying to enter any open door; thought process can be goal directed, but mostly tangential and disorganized, perseverative; Thought content is on various things, mostly delusional thoughts; denies any SI/HI. Denies AVH; Patients insight and judgment impaired. Diagnostics Vital Signs (24Hr): Vital Signs - 24 hr 06/17/24 08:00 Temperature 98.3 F Pulse Rate 67 Respiratory Rate 18 Blood Pressure 133/69 Pulse Oximetry 97 Oxygen Delivery Method Room Air BMI result Body Mass Index 29.5 Labs 06/02/24 16:41 06/03/24 13:51 Imaging Radiology Impressions: ITS Impressions Chest X-Ray 06/09/24 10:55 IMPRESSION: No acute process. Mild hyperinflation. Head CT 06/09/24 11:20 IMPRESSION: 1. No evidence of acute intracranial hemorrhage or edematous territorial infarction. 2. Mild underlying microangiopathy. Medications Medications Current Medications Al Hydroxide/Mg Hydroxide (Magnesium Hydrox/Alum Hydrox 30 Ml Oral.Susp) 30 ml PO Q6H PRN PRN Reason: Heartburn/Nausea Last Admin: 06/13/24 19:50 Dose: 30 ml Albuterol Sulfate (Albuterol Sulfate 90 Mcg 8 Gm Inhaler) 2 puff INHALE Q4H PRN PRN Reason: Wheezing Last Admin: 06/16/24 10:00 Dose: 2 puff Amlodipine Besylate (Amlodipine Besylate 2.5 Mg Tablet) 2.5 mg PO DAILY [facility]; Protocol Last Admin: 06/17/24 08:32 Dose: 2.5 mg Artificial Tears (Artificial Tears 15 Ml Drops) 1 drop EYE-BOTH Q4H PRN PRN Reason: Dry Eyes Last Admin: 06/16/24 06:33 Dose: 1 drop Aspirin (Aspirin Enteric Coated 81 Mg Tablet.) 81 mg PO DAILY [facility] Last Admin: 06/17/24 08:32 Dose: 81 mg Atorvastatin Calcium (Atorvastatin Calcium 40 Mg Tablet) 40 mg PO BEDTIME [facility] Last Admin: 06/16/24 20:28 Dose: 40 mg Benztropine Mesylate (Benztropine Mesylate 0.5 Mg Tablet) 0.5 mg PO BID [facility] Last Admin: 06/17/24 08:31 Dose: 0.5 mg Clonazepam (Clonazepam 1 Mg Tablet) 1 mg PO BID@0900,1300 [facility] Last Admin: 06/17/24 08:31 Dose: 1 mg Divalproex Sodium (Divalproex Sodium Er 500 Mg Tab.Er.24h) 500 mg PO BEDTIME [facility] Last Admin: 06/16/24 20:28 Dose: 500 mg Ezetimibe (Ezetimibe 10 Mg Tablet) 10 mg PO DAILY [facility] Last Admin: 06/17/24 08:32 Dose: 10 mg Famotidine (Famotidine 20 Mg Tablet) 20 mg PO DAILY [facility] Last Admin: 06/17/24 08:32 Dose: 20 mg Ferrous Sulfate (Ferrous Sulfate 324 Mg Tablet.) 324 mg PO DAILY [facility] Last Admin: 06/17/24 08:31 Dose: 324 mg Folic Acid (Folic Acid 1 Mg Tablet) 1 mg PO DAILY [facility] Last Admin: 06/17/24 08:32 Dose: 1 mg Hydroxyzine HCl (Hydroxyzine Hcl 25 Mg Tablet) 25 mg PO Q6H PRN PRN Reason: Anxiety Last Admin: 06/15/24 09:58 Dose: 25 mg Ibuprofen (Ibuprofen 600 Mg Tablet) 600 mg PO Q8H PRN PRN Reason: Pain, Mild (Pain Scale 1-3) Last Admin: 06/17/24 00:03 Dose: 600 mg Magnesium Hydroxide (Milk Of Magnesia 30 Ml Oral.Susp) 30 ml PO DAILY PRN PRN Reason: Constipation Last Admin: 06/12/24 09:33 Dose: 30 ml Metoprolol Succinate (Metoprolol Succinate Er 25 Mg Tab.Er.24h) 25 mg PO DAILY [facility]; Protocol Last Admin: 06/17/24 08:32 Dose: 25 mg Mirtazapine (Mirtazapine 30 Mg Tablet) 30 mg PO BEDTIME [facility] Last Admin: 06/16/24 20:28 Dose: 30 mg Nicotine Polacrilex (Nicotine Polacrilex 2 Mg Gum) 4 mg BUCCAL Q2H PRN PRN Reason: Nicotine Cravings Last Admin: 06/17/24 00:07 Dose: 4 mg Nicotine Polacrilex (Nicotine Polacrilex 2 Mg Gum) 4 mg BUCCAL Q2H PRN PRN Reason: Nicotine Cravings Last Admin: 06/05/24 21:42 Dose: 4 mg Olanzapine (Olanzapine 5 Mg Tablet) 5 mg PO TID PRN PRN Reason: psychosis, agitation Last Admin: 06/16/24 16:09 Dose: 5 mg Olanzapine (Olanzapine 7.5 Mg Tablet) 7.5 mg PO TID [facility] Last Admin: 06/17/24 08:31 Dose: 7.5 mg Omeprazole (Omeprazole 20 Mg Capsule.Dr) 20 mg PO DAILY@0630 [facility] Last Admin: 06/17/24 07:11 Dose: 20 mg Thiamine HCl (Thiamine Hcl 100 Mg Tablet) 100 mg PO DAILY [facility] Last Admin: 06/17/24 08:32 Dose: 100 mg Trazodone HCl (Trazodone Hcl 100 Mg Tablet) 100 mg PO BEDTIME [facility] Last Admin: 06/16/24 20:28 Dose: 100 mg Allergies Allergies Allergy/AdvReac Type Severity Reaction Status Date / Time acetaminophen Allergy Unknown PANADOL = Verified 06/02/24 16:01 ACETAMINOPHEN SHELLFISH Allergy Mild PATIENT Uncoded 06/02/24 16:01 REPORTS BURNING SENSATION THROUGHOUT OPIATES Allergy Unknown BECAME Uncoded 06/02/24 16:01 ADDICTED PANADOL Allergy Unknown UNKNOWN Uncoded 06/02/24 16:01 Assessment & Plan Assessment & Plan (1) Schizoaffective disorder: Qualifiers: Schizoaffective disorder type: unspecified Qualified Code(s): F25.9 - Schizoaffective disorder, unspecified Status: Acute Code(s): F25.9 - Schizoaffective disorder, unspecified (2) Intellectual delay: Status: Acute Code(s): F81.9 - Developmental disorder of scholastic skills, unspecified (3) CAD (coronary artery disease): Status: Acute Code(s): I25.10 - Atherosclerotic heart disease of [place] coronary artery without angina pectoris Plan Patient 59 yr old Georgian-speaking male with schizoaffective disorder, cognitive delay, who lives with his mother, recently discharged from on 05/20/2024 who presents via family for increased paranoia, anger and confusion. At last admission there was the thought that patient was not taking all of his medications, since the bulk of his Risperdal was prescribed at bedtime and the [facility] only came in the morning. During this last admission, Risperdal changed so that he was taking the bulk of it in the morning and with VNA, seems he is taking his medications. Despite this, family reports that his behaviors are worsening. On the unit he is friendly and calm; he is confused saying he wants to go see his children, caring a pillow in his arms and calling it his baby. Formulation/clinical reasoning: It is not clear what is causing decline given that he is most likely taking his medications regularly. Some speculation that he might be abusing substance when out and about in neighborhood however UDS is negative. Setting up family meeting to discuss. Hospital course: 06/05 Patient denies any AH to medical writer. Denies any SI or HI and says I never look for problems... I am never aggressive... I am good... Although he denies AH, patient says there is too much noise on the unit, and that people are touching his face. Earlier he had told another staff that he was having AH to hurt himself but that he was able to ignore. Patient denies any current drug use; he adds that he used to live on the streets but now [facility] Substation Wireman asked about why he had been carrying a pillow around calling it his baby; patient did not really answer but said that he has a son and a granddaughter and that his is . Patient said he wanted to go home but then agreed to wait for meeting with outpatient staff this next Saturday. -patient does seem more confused than he did at last admission. Will increase Risperdal 06/08 Patient remains disorganized, able to be goal-directed on some topics such as wanting is close but otherwise trying to enter in any open door he sees and needing frequent redirection. SW and medical writer Discussed case with outpt team: Efraín Gray, DDS Nimisha Glaser DDS Marlyn Brennan [place] No one is sure why patient has decompensated after decades of remaining stable on Risperdal. Says that for some reason this past month he has been more paranoid, more disorganized and when he returned from last admission he was not quite back to baseline. The past weeks patient was given away clothing on the street. This past admission was following patient argument with a neighbor. Apparently he had been peeking into this neighbor's window, scaring the neighbor and scared the neighbor's kids. They had a verbal altercation; staff arrived and patient kept saying he was going to go over to the neighbor's and take care of the neighbor... No actual threat was made and patient has no history of aggression but because of this he was taken to the hospital. Bret has discussed eviction of both patient and his elderly mother if behaviors continue. Team wondered if patient was not taking his medications however medical writer explained that the bulk of his medications were switched so the [facility]NA was giving him the 3 mg of Risperdal out of the 3.5 total daily dose making this less likely the issue. They say at baseline he paces and is anxious but he pretty much make sense and though he may say some delusional things his conversations are overall able to remain grounded in reality. Discussed various options including temporary housing and likelihood that patient will at some point in the near future need some type of group living arrangement as his mother is elderly and with some dementia Unclear why patient has decompensated; Increased Risperdal to see if that can help. Thus far no clear organic etiology; will get additional labs to trying rule out other possible causes, including HIV and RPR, magnesium, B12/folate; will likely get head CT, though anticipate that results will be unremarkable. UDS was negative and UA showed no bacterial growth. Will try to get more collateral from family 06/09 Patient remains confused and disorganized, jumping from topic to topic. He agrees to remain to have meeting on Saturday but otherwise says he is missing home. Patient denies any chest pain but passes hard to say that he has a heart condition and has a surgically implanted mesh. Patient starts to cry and says that people are laughing at him that he can hear them doing so; he also said that a staff person's came in to his room last night and choked. Patient started taking should often group today. Looking for any organic contribution to patient's decompensation, however: labs thus far unremarkable; magnesium/calcium WNL; electrolytes WNL Chest x-ray pending Repeat UA unremarkable; no evidence of UTI -Head CT however did show evidence of Mild underlying microangiopathy Which could indicate vascular dementia as a possible contribution, which does seem to worsen in a stepwise fashion Will continue with current medication regimen; if no improvement will consider switching to Zyprexa which is on the [facility] order. 06/11 Patient remains disorganized, delusional. Substation Wireman another staff person saying it was his son; telling medical writer he is going up by medical writer a car, telling other staff members the same. Saying he has to go downstairs and feed the baby... Review of chart shows that patient has been getting Zyprexa p.r.n. consistently which seems to subdue patients agitation for a bit however but has thus far not helped resolve psychotic symptoms. -it is unlikely that is scheduling Zyprexa will make much difference says he has gotten significant doses over the past 5 days; will leave his p.r.n. for now; however will monitor how much antipsychotic patient is getting and lower p.r.n. availability to b.i.d.. -Reviewed recent EKG and QTc Int : 489 ms which is mildly prolonged; will monitor 06/07 total daily dose 5 mg 06/08 15 mg 06/09 10 mg 06/10 15 mg 06/11 5 mg 06/12 remains delusional, disorganized, intermittently intrusive with peers, sometimes a little aggressive with peers but remains redirectable. Considering maybe switching to Zyprexa since Risperdal isn't helping with psychosis and perhaps Zyprexa can subdue agitated behaviors -outpatient team came to visit and report patient is far from baseline at which he had been for a decade until about a month ago 06/13 Remains delusional, disorganized. A little more agitated and today went after peer (unprovoked) at the phone, then went after another peer. Staff able to redirect each time and pt willing to take medication. Will dc risperdal since not making any differnece will instead try zyprexa 5mg TID...as a prn, it's helped subdue agitated behavior, though has not yet reduced delusional thinking. 06/14 Last night patient continued to be aggressive towards peers, delusional; medical writer on-call and discussed with nurse and gave Ativan 2 mg to see if that could subdue behaviors, trying to avoid giving more antipsychotic. However he remained intrusive and agitated towards peers, a little more difficult to redirect and so Thorazine 50 mg p.o. given. -Today, Patient less agitated and has not been aggressive towards peers; a little more calm and though he remains disorganized, delusional, a little easier to extract oneself conversation -typically patient is not aggressive towards peers and hopefully these behaviors will resolve with switch to Zyprexa; however he remains very intrusive, going into people's rooms, hanging up telephone calls, constantly asking nonsensical questions and he remains at risk for provoking peers. Will continue to monitor behaviors towards others and will strongly consider transferring patient to Geriatric unit for his own safety. Substation Wireman was Considering that perhaps patient maybe having some manic behaviors and might benefit from Depakote however since there is some mild improvement will continue with Zyprexa t.i.d. dosing for now and monitor 06/15 Patient remains disorganized, intrusive and asks to go home. Patient agreed to sign 3 day notice. Collateral: Chris reports that about once a year, patient gets dysregulated for a few weeks to a month, goes to the hospital and then seems to go back to normal. He said it happened last summer around April or May during which time patient had similar behaviors. He was on his way to his day program but never made it, picked up by police disheveled, confused, no shoes, wet and disoriented. Was hospitalized. Chris reports that since then he has been back to his baseline until about a month ago. He reports that at the apartment he had a sudden change, disoriented, using bad words, saying bad things to the neighbors, giving way is close. Chris thinks that patient is getting a little better since this admission and it is overall less intense than last year. Shared some additional history, the patient was but no children; they years ago. Grew up going to a school for people with intellectual disability. 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 Did get involved in some drugs, cocaine and huffing on the streets in [place]; does not think much drug abuses happened here other than cannabis -Given collateral health information systems technician again thinks that patient might benefit from Depakote since he he continues to have manic behaviors which per his brother, are episodic. 06/16 Starting Depakote; will continue with Zyprexa for now but will likely go back to Risperdal since it can be once a day dosing and seems to maintain patient for nearly a year in between manic episodes -discussed with patient need to remain on unit for medication, discussed diagnosis; patient continued to insist he wanted to go home and would not retract 3 day 06/17 Patient remains with same presentation, disorganized speech behavior, intrusive, requiring constant redirection by one-to-one. Discussed with team who agree that for patient's safety, better to move him to the geriatric unit as his intrusiveness to peers on regular adult unit are putting him at risk. Patient has thus far been able to be consistently redirected by one-to-one which will continue on the geriatric unit for now. PLAN: 3 day notice Guardian; pt has given permission to talk with his family 1:1 for accidental intrusiveness to others and needing to be redirected increased to Depakote ER 750mg qhs continue Zyprexa 5mg TID consider Depakote if aggressive behaviors return DC risperidone (was on 3 mg b.i.d. up from home dose which was a total daily dose of 3.5mg)) Mirtazapine 30 mg PO BEDTIME [facility] Benztropine Mesylate 0.5 mg PO BID [facility] Clonazepam 0.5 mg PO BID [facility] Lower PRN Zyprexa 5mg to BID (Zyprexa seems to help subdue agitation but not resolve psychosis; will lower dose available given mild prolongation of QTC) Omeprazole 20 mg PO DAILY@0630 [facility] Albuterol Sulfate 2 puff INHALE Q4H PRN Amlodipine Besylate 2.5 mg PO DAILY [facility]; Protocol Artificial Tears 1 drop EYE-BOTH Q4H PRN Aspirin 81 mg PO DAILY [facility] Atorvastatin Calcium 40 mg PO BEDTIME [facility] Ezetimibe 10 mg PO DAILY [facility] Ferrous Sulfate 324 mg PO DAILY [facility] Folic Acid 1 mg PO DAILY [facility] Hydroxyzine HCl 25 mg PO Q6H PRN Metoprolol Succinate 25 mg PO DAILY [facility]; Protocol Thiamine HCl 100 mg PO DAILY [facility] Trazodone HCl 100 mg PO BEDTIME [facility] effective to March 26, 2025: Risperdal up to 10mg daily (primary) Geodon up to 60mg daily Zyprexa up to 25mg daily later in evening pt complained of right sided chest pain; vitals WNL and pt not in any distress but given hx for CAD ordered EKG and trop Patient educated on: diagnosis Informed Consent: does not understand Reason for continued inpatient stay Substantial Risk for: inability to function Time Spent With Patient Time: Total time managing care of this patient today ____ minutes.
[2024-06-17 12:57] VITALS: BMI 31.4
--- NOTE | 2024-06-17 13:03 | PC.NURSE ---
Pt was transferred from at 12:30PM, accompanied by nurse. Dx of Schizophrenia D/o, CAD, COPD. Italian speaking, pleasant, confused, forgetful. Poor boundaries, intrusive, disorganized, needs frequent redirections, on 1:1. Pacing in a common area, minimally engaging, at times mumbles, paranoid, delusional. Pt ambulates with steady gait; 1:1 for safety. VSS, T 97.3, P 78, BP 125/71, O2sat 98% on RA. Pt denies pain, denies SI, HI. Compliant with meds, takes them whole with cold water. Wt 161 lbs.
[2024-06-17] MEDS: Artificial Tears 15 ML DROPS 1 DROP EYE-BOTH ×2 (13:44→18:21)
--- NOTE | 2024-06-17 14:39 | P.PNPSI_ITS ---
Subjective Subjective Date of Service: 06/17/24 Reason For Visit: Dysregulated Subjective Notes: 3 Day Interim History: Met with patient; discussed with team Patient remains disorganized little more intrusive with peers, needing constant redirection and intervention from staff as he rushed at a peer. Review of Systems Review of Systems Constitutional : No Weight loss, No Fever, No Chills, No Night Sweats, No Fatigue, No Malaise ENT/Mouth : No Hearing loss, No Ear Pain, No Nasal Congestion, No Sinus Pain, No Hoarseness, No sore throat, No Rhinorrhea, No Swallowing Difficulty Eyes: No Eye Pain, No Swelling, No Redness, No Foreign Body, No Discharge, No Vision Changes Cardiovascular : No Chest Pain, No SOB, No Dyspnea on Exertion, No Orthopnea, No Edema, No Palpitations Respiratory : No Cough, No Sputum, No Wheezing, No Smoke Exposure, No Dyspnea Gastrointestinal : No Nausea, No Vomiting, No Diarrhea, No Constipation, No abdominal Pain, No Hematochezia, No Melena Genitourinary : no irregular bleeding, No Dysuria, No Urinary Frequency, No Hematuria, No Urinary Incontinence, No Urgency, No Flank Pain, No Urinary Flow Changes, No Hesitancy Musculoskeletal : No joint pain, No Myalgias, No Joint Swelling Skin : No Skin Lesions, No rash Neuro : No Weakness, No Numbness, No Paresthesias, No Loss of Consciousness, No Dizziness, No Headache Psych : No Anxiety/Panic, No Depression, No SI/HI/AH/VH, No Social Issues, per family: Increased aggression and delusions Heme/Lymph: No Bruising, No Bleeding,No Lymphadenopathy Endocrine : No Polyuria, No Polydipsia, No Temperature Intolerance Yes Unobtainable due to mental status Mental Status Exam Mental Status Exam Narrative: Pt is alert and oriented to place, not month, or year nor situation; behavior is is mostly (overly) friendly however increasing restless, wandering, accidentally intrusive to peers, sometimes momentarily aggressive with peers, disorganized, typically able to be redirected. remains able to be easily redirected; patient is not in distress; dressed in hospital attire, scruffy with adequate hygiene; mood is described as good and but affect is constricted and patient sometimes tearful; eye contact appropriate; Speech is repetitive, a little pressured, normal volume and prosody; moderate psychomotor agitation present as he keeps pacing, trying to enter any open door; thought process can be goal directed, but mostly tangential and disorganized, perseverative; Thought content is on various things, mostly delusional thoughts; denies any SI/HI. Denies AVH; Patients insight and judgment impaired. Diagnostics Vital Signs (24Hr): Vital Signs - 24 hr 06/17/24 08:00 Temperature 98.3 F Pulse Rate 67 Respiratory Rate 18 Blood Pressure 133/69 Pulse Oximetry 97 Oxygen Delivery Method Room Air BMI result Body Mass Index 31.4 Labs 06/02/24 16:41 06/03/24 13:51 Imaging Radiology Impressions: ITS Impressions Chest X-Ray 06/09/24 10:55 IMPRESSION: No acute process. Mild hyperinflation. Head CT 06/09/24 11:20 IMPRESSION: 1. No evidence of acute intracranial hemorrhage or edematous territorial infarction. 2. Mild underlying microangiopathy. Medications Medications Current Medications Al Hydroxide/Mg Hydroxide (Magnesium Hydrox/Alum Hydrox 30 Ml Oral.Susp) 30 ml PO Q6H PRN PRN Reason: Heartburn/Nausea Last Admin: 06/13/24 19:50 Dose: 30 ml Albuterol Sulfate (Albuterol Sulfate 90 Mcg 8 Gm Inhaler) 2 puff INHALE Q4H PRN PRN Reason: Wheezing Last Admin: 06/16/24 10:00 Dose: 2 puff Amlodipine Besylate (Amlodipine Besylate 2.5 Mg Tablet) 2.5 mg PO DAILY [facility]; Protocol Last Admin: 06/17/24 08:32 Dose: 2.5 mg Artificial Tears (Artificial Tears 15 Ml Drops) 1 drop EYE-BOTH Q4H PRN PRN Reason: Dry Eyes Last Admin: 06/17/24 13:44 Dose: 1 drop Aspirin (Aspirin Enteric Coated 81 Mg Tablet.Dr) 81 mg PO DAILY [facility] Last Admin: 06/17/24 08:32 Dose: 81 mg Atorvastatin Calcium (Atorvastatin Calcium 40 Mg Tablet) 40 mg PO BEDTIME [facility] Last Admin: 06/16/24 20:28 Dose: 40 mg Benztropine Mesylate (Benztropine Mesylate 0.5 Mg Tablet) 0.5 mg PO BID [facility] Last Admin: 06/17/24 08:31 Dose: 0.5 mg Clonazepam (Clonazepam 1 Mg Tablet) 1 mg PO BID@0900,1300 [facility] Last Admin: 06/17/24 13:31 Dose: 1 mg Divalproex Sodium (Divalproex Sodium Er 250 Mg Tab.Er.24h) 750 mg PO BEDTIME [facility] Ezetimibe (Ezetimibe 10 Mg Tablet) 10 mg PO DAILY [facility] Last Admin: 06/17/24 08:32 Dose: 10 mg Famotidine (Famotidine 20 Mg Tablet) 20 mg PO DAILY [facility] Last Admin: 06/17/24 08:32 Dose: 20 mg Ferrous Sulfate (Ferrous Sulfate 324 Mg Tablet.Dr) 324 mg PO DAILY [facility] Last Admin: 06/17/24 08:31 Dose: 324 mg Folic Acid (Folic Acid 1 Mg Tablet) 1 mg PO DAILY [facility] Last Admin: 06/17/24 08:32 Dose: 1 mg Hydroxyzine HCl (Hydroxyzine Hcl 25 Mg Tablet) 25 mg PO Q6H PRN PRN Reason: Anxiety Last Admin: 06/15/24 09:58 Dose: 25 mg Ibuprofen (Ibuprofen 600 Mg Tablet) 600 mg PO Q8H PRN PRN Reason: Pain, Mild (Pain Scale 1-3) Last Admin: 06/17/24 00:03 Dose: 600 mg Magnesium Hydroxide (Milk Of Magnesia 30 Ml Oral.Susp) 30 ml PO DAILY PRN PRN Reason: Constipation Last Admin: 06/12/24 09:33 Dose: 30 ml Metoprolol Succinate (Metoprolol Succinate Er 25 Mg Tab.Er.24h) 25 mg PO DAILY [facility]; Protocol Last Admin: 06/17/24 08:32 Dose: 25 mg Mirtazapine (Mirtazapine 30 Mg Tablet) 30 mg PO BEDTIME [facility] Last Admin: 06/16/24 20:28 Dose: 30 mg Nicotine Polacrilex (Nicotine Polacrilex 2 Mg Gum) 4 mg BUCCAL Q2H PRN PRN Reason: Nicotine Cravings Last Admin: 06/17/24 00:07 Dose: 4 mg Nicotine Polacrilex (Nicotine Polacrilex 2 Mg Gum) 4 mg BUCCAL Q2H PRN PRN Reason: Nicotine Cravings Last Admin: 06/05/24 21:42 Dose: 4 mg Olanzapine (Olanzapine 5 Mg Tablet) 5 mg PO TID PRN PRN Reason: psychosis, agitation Last Admin: 06/16/24 16:09 Dose: 5 mg Olanzapine (Olanzapine 7.5 Mg Tablet) 7.5 mg PO TID [facility] Last Admin: 06/17/24 08:31 Dose: 7.5 mg Omeprazole (Omeprazole 20 Mg Capsule.Dr) 20 mg PO DAILY@0630 [facility] Last Admin: 06/17/24 07:11 Dose: 20 mg Thiamine HCl (Thiamine Hcl 100 Mg Tablet) 100 mg PO DAILY [facility] Last Admin: 06/17/24 08:32 Dose: 100 mg Trazodone HCl (Trazodone Hcl 100 Mg Tablet) 100 mg PO BEDTIME [facility] Last Admin: 06/16/24 20:28 Dose: 100 mg Allergies Allergies Allergy/AdvReac Type Severity Reaction Status Date / Time acetaminophen Allergy Unknown PANADOL = Verified 06/02/24 16:01 ACETAMINOPHEN SHELLFISH Allergy Mild PATIENT Uncoded 06/02/24 16:01 REPORTS BURNING SENSATION THROUGHOUT OPIATES Allergy Unknown BECAME Uncoded 06/02/24 16:01 ADDICTED PANADOL Allergy Unknown UNKNOWN Uncoded 06/02/24 16:01 Assessment & Plan Assessment & Plan (1) Schizoaffective disorder: Qualifiers: Schizoaffective disorder type: unspecified Qualified Code(s): F25.9 - Schizoaffective disorder, unspecified Status: Acute Code(s): F25.9 - Schizoaffective disorder, unspecified (2) Intellectual delay: Status: Acute Code(s): F81.9 - Developmental disorder of scholastic skills, unspecified (3) CAD (coronary artery disease): Status: Acute Code(s): I25.10 - Atherosclerotic heart disease of [place] coronary artery without angina pectoris Plan Patient 59 yr old [place]ian-speaking male with schizoaffective disorder, cognitive delay, who lives with his mother, recently discharged from on 05/20/2024 who presents via family for increased paranoia, anger and confusion. At last admission there was the thought that patient was not taking all of his medications, since the bulk of his Risperdal was prescribed at bedtime and the [facility] only came in the morning. During this last admission, Risperdal changed so that he was taking the bulk of it in the morning and with VNA, seems he is taking his medications. Despite this, family reports that his behaviors are worsening. On the unit he is friendly and calm; he is confused saying he wants to go see his children, caring a pillow in his arms and calling it his baby. Formulation/clinical reasoning: It is not clear what is causing decline given that he is most likely taking his medications regularly. Some speculation that he might be abusing substance when out and about in neighborhood however UDS is negative. Setting up family meeting to discuss. Hospital course: 06/05 Patient denies any AH to technical writer. Denies any SI or HI and says I never look for problems... I am never aggressive... I am good... Although he denies AH, patient says there is too much noise on the unit, and that people are touching his face. Earlier he had told another staff that he was having AH to hurt himself but that he was able to ignore. Patient denies any current drug use; he adds that he used to live on the streets but now he goes to [facility]. Solutions Manager asked about why he had been carrying a pillow around calling it his baby; patient did not really answer but said that he has a son and a granddaughter and that his is . Patient said he wanted to go home but then agreed to wait for meeting with outpatient staff this next Saturday. -patient does seem more confused than he did at last admission. Will increase Risperdal 06/08 Patient remains disorganized, able to be goal-directed on some topics such as wanting is close but otherwise trying to enter in any open door he sees and needing frequent redirection. SW and technical writer Discussed case with outpt team: Efraín Gray, DDS Nimsiha Glaser DDS Marlyn Brennan [facility] No one is sure why patient has decompensated after decades of remaining stable on Risperdal. Says that for some reason this past month he has been more paranoid, more disorganized and when he returned from last admission he was not quite back to baseline. The past weeks patient was given away clothing on the street. This past admission was following patient argument with a neighbor. Apparently he had been peeking into this neighbor's window, scaring the neighbor and scared the neighbor's kids. They had a verbal altercation; staff arrived and patient kept saying he was going to go over to the neighbor's and take care of the neighbor... No actual threat was made and patient has no history of aggression but because of this he was taken to the hospital. Bret has discussed eviction of both patient and his elderly mother if behaviors continue. Team wondered if patient was not taking his medications however technical writer explained that the bulk of his medications were switched so the VNA was giving him the 3 mg of Risperdal out of the 3.5 total daily dose making this less likely the issue. They say at baseline he paces and is anxious but he pretty much make sense and though he may say some delusional things his conversations are overall able to remain grounded in reality. Discussed various options including temporary housing and likelihood that patient will at some point in the near future need some type of group living arrangement as his mother is elderly and with some dementia Unclear why patient has decompensated; Increased Risperdal to see if that can help. Thus far no clear organic etiology; will get additional labs to trying rule out other possible causes, including HIV and RPR, magnesium, B12/folate; will likely get head CT, though anticipate that results will be unremarkable. UDS was negative and UA showed no bacterial growth. Will try to get more collateral from family 06/09 Patient remains confused and disorganized, jumping from topic to topic. He agrees to remain to have meeting on Saturday but otherwise says he is missing home. Patient denies any chest pain but passes hard to say that he has a heart condition and has a surgically implanted mesh. Patient starts to cry and says that people are laughing at him that he can hear them doing so; he also said that a staff person's came in to his room last night and choked. Patient started taking should often group today. Looking for any organic contribution to patient's decompensation, however: labs thus far unremarkable; magnesium/calcium WNL; electrolytes WNL Chest x-ray pending Repeat UA unremarkable; no evidence of UTI -Head CT however did show evidence of Mild underlying microangiopathy Which could indicate vascular dementia as a possible contribution, which does seem to worsen in a stepwise fashion Will continue with current medication regimen; if no improvement will consider switching to Zyprexa which is on the [facility] order. 06/11 Patient remains disorganized, delusional. Solutions Manager another staff person saying it was his son; telling technical writer he is going up by technical writer a car, telling other staff members the same. Saying he has to go downstairs and feed the baby... Review of chart shows that patient has been getting Zyprexa p.r.n. consistently which seems to subdue patients agitation for a bit however but has thus far not helped resolve psychotic symptoms. -it is unlikely that is scheduling Zyprexa will make much difference says he has gotten significant doses over the past 5 days; will leave his p.r.n. for now; however will monitor how much antipsychotic patient is getting and lower p.r.n. availability to b.i.d.. -Reviewed recent EKG and QTc Int : 489 ms which is mildly prolonged; will monitor 06/07 total daily dose 5 mg 06/08 15 mg 06/09 10 mg 06/10 15 mg 06/11 5 mg 06/12 remains delusional, disorganized, intermittently intrusive with peers, sometimes a little aggressive with peers but remains redirectable. Considering maybe switching to Zyprexa since Risperdal isn't helping with psychosis and perhaps Zyprexa can subdue agitated behaviors -outpatient team came to visit and report patient is far from baseline at which he had been for a decade until about a month ago 06/13 Remains delusional, disorganized. A little more agitated and today went after peer (unprovoked) at the phone, then went after another peer. Staff able to redirect each time and pt willing to take medication. Will dc risperdal since not making any differnece will instead try zyprexa 5mg TID...as a prn, it's helped subdue agitated behavior, though has not yet reduced delusional thinking. 06/14 Last night patient continued to be aggressive towards peers, delusional; technical writer on-call and discussed with nurse and gave Ativan 2 mg to see if that could subdue behaviors, trying to avoid giving more antipsychotic. However he remained intrusive and agitated towards peers, a little more difficult to redirect and so Thorazine 50 mg p.o. given. -Today, Patient less agitated and has not been aggressive towards peers; a little more calm and though he remains disorganized, delusional, a little easier to extract oneself conversation -typically patient is not aggressive towards peers and hopefully these behaviors will resolve with switch to Zyprexa; however he remains very intrusive, going into people's rooms, hanging up telephone calls, constantly asking nonsensical questions and he remains at risk for provoking peers. Will continue to monitor behaviors towards others and will strongly consider transferring patient to Geriatric unit for his own safety. Solutions Manager was Considering that perhaps patient maybe having some manic behaviors and might benefit from Depakote however since there is some mild improvement will continue with Zyprexa t.i.d. dosing for now and monitor 06/15 Patient remains disorganized, intrusive and asks to go home. Patient agreed to sign 3 day notice. Collateral: Chris reports that about once a year, patient gets dysregulated for a few weeks to a month, goes to the hospital and then seems to go back to normal. He said it happened last summer around April or May during which time patient had similar behaviors. He was on his way to his day program but never made it, picked up by police disheveled, confused, no shoes, wet and disoriented. Was hospitalized. Chris reports that since then he has been back to his baseline until about a month ago. He reports that at the apartment he had a sudden change, disoriented, using bad words, saying bad things to the neighbors, giving way is close. Chris thinks that patient is getting a little better since this admission and it is overall less intense than last year. Shared some additional history, the patient was but no children; they years ago. Grew up going to a school for people with intellectual disability. 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 Did get involved in some drugs, cocaine and huffing on the streets in [place]; does not think much drug abuses happened here other than cannabis -Given collateral account information clerk again thinks that patient might benefit from Depakote since he he continues to have manic behaviors which per his brother, are episodic. 06/16 Starting Depakote; will continue with Zyprexa for now but will likely go back to Risperdal since it can be once a day dosing and seems to maintain patient for nearly a year in between manic episodes -discussed with patient need to remain on unit for medication, discussed diagnosis; patient continued to insist he wanted to go home and would not retract 3 day 06/17 continue tx. 3 day up tomorrow. PLAN: 3 day notice Guardian; pt has given permission to talk with his family 1:1 for accidental intrusiveness to others and needing to be redirected Start Depakote Ir 250mg one time START Depakote ER 500mg qhs continue Zyprexa 5mg TID consider Depakote if aggressive behaviors return DC risperidone (was on 3 mg b.i.d. up from home dose which was a total daily dose of 3.5mg)) Mirtazapine 30 mg PO BEDTIME [facility] Benztropine Mesylate 0.5 mg PO BID [facility] Clonazepam 0.5 mg PO BID [facility] Lower PRN Zyprexa 5mg to BID (Zyprexa seems to help subdue agitation but not resolve psychosis; will lower dose available given mild prolongation of QTC) Omeprazole 20 mg PO DAILY@0630 [facility] Albuterol Sulfate 2 puff INHALE Q4H PRN Amlodipine Besylate 2.5 mg PO DAILY [facility]; Protocol Artificial Tears 1 drop EYE-BOTH Q4H PRN Aspirin 81 mg PO DAILY [facility] Atorvastatin Calcium 40 mg PO BEDTIME [facility] Ezetimibe 10 mg PO DAILY [facility] Ferrous Sulfate 324 mg PO DAILY [facility] Folic Acid 1 mg PO DAILY [facility] Hydroxyzine HCl 25 mg PO Q6H PRN Metoprolol Succinate 25 mg PO DAILY [facility]; Protocol Thiamine HCl 100 mg PO DAILY [facility] Trazodone HCl 100 mg PO BEDTIME [facility] effective to March 26, 2025: Risperdal up to 10mg daily (primary) Geodon up to 60mg daily Zyprexa up to 25mg daily later in evening pt complained of right sided chest pain; vitals WNL and pt not in any distress but given hx for CAD ordered EKG and trop Reason for continued inpatient stay Substantial Risk for: inability to function Time Spent With Patient Time: Total time managing care of this patient today ____ minutes.
[2024-06-17] MEDS: Albuterol Sulfate 90 MCG 8 GM INHALER 2 PUFF INHALE (18:55)
[2024-06-17] MEDS: Divalproex Sodium ER 250 MG TAB.ER.24H 750 MG PO (20:51)
[2024-06-17] MEDS: traZODone HCL 100 MG TABLET PO (20:52)
[2024-06-17] MEDS: OLANZapine 5 MG TABLET PO (20:52)
[2024-06-17] MEDS: Atorvastatin Calcium 40 MG TABLET PO (20:52)
[2024-06-17] MEDS: Mirtazapine 30 MG TABLET PO (20:52)
[2024-06-18] MEDS: Omeprazole 20 MG CAPSULE.DR PO (06:06)
[2024-06-18 07:00] VITALS: BMI 30.7
[2024-06-18 08:00] VITALS: BP 147/68; PULSE 73; RESP 18; TEMP 36; O2SAT 96
[2024-06-18] MEDS: Thiamine HCL 100 MG TABLET PO (08:29)
[2024-06-18] MEDS: clonazePAM 1 MG TABLET PO ×2 (08:29→14:45)
[2024-06-18] MEDS: Benztropine Mesylate 0.5 MG TABLET PO ×2 (08:29→20:47)
[2024-06-18] MEDS: amLODIPine Besylate 2.5 MG TABLET PO (08:29)
[2024-06-18] MEDS: Folic Acid 1 MG TABLET PO (08:29)
[2024-06-18] MEDS: OLANZapine 7.5 MG TABLET PO ×3 (08:29→20:47)
[2024-06-18] MEDS: Aspirin Enteric Coated 81 MG TABLET.DR PO (08:29)
[2024-06-18] MEDS: Famotidine 20 MG TABLET PO (08:29)
[2024-06-18] MEDS: Ferrous Sulfate 324 MG TABLET.DR PO (08:29)
[2024-06-18] MEDS: Metoprolol Succinate ER 25 MG TAB.ER.24H PO (08:29)
--- NOTE | 2024-06-18 09:03 | P.PNPSI_ITS ---
Subjective Subjective Date of Service: 06/18/24 Reason For Visit: Dysregulated Subjective Notes: Section 7 Interim History: Pt slept through the night. He thinks he knows some people on the unit, stating that they are his nieces and they need to go with him. He also reports he is going to [place] and is getting . He is intrusive with peers, not aggressive mostly because he thinks he knows them. He is taking medications as prescribed. 3 day notice up and team file. Review of Systems Review of Systems Constitutional : No Weight loss, No Fever, No Chills, No Night Sweats, No Fatigue, No Malaise ENT/Mouth : No Hearing loss, No Ear Pain, No Nasal Congestion, No Sinus Pain, No Hoarseness, No sore throat, No Rhinorrhea, No Swallowing Difficulty Eyes: No Eye Pain, No Swelling, No Redness, No Foreign Body, No Discharge, No Vision Changes Cardiovascular : No Chest Pain, No SOB, No Dyspnea on Exertion, No Orthopnea, No Edema, No Palpitations Respiratory : No Cough, No Sputum, No Wheezing, No Smoke Exposure, No Dyspnea Gastrointestinal : No Nausea, No Vomiting, No Diarrhea, No Constipation, No abdominal Pain, No Hematochezia, No Melena Genitourinary : no irregular bleeding, No Dysuria, No Urinary Frequency, No Hematuria, No Urinary Incontinence, No Urgency, No Flank Pain, No Urinary Flow Changes, No Hesitancy Musculoskeletal : No joint pain, No Myalgias, No Joint Swelling Skin : No Skin Lesions, No rash Neuro : No Weakness, No Numbness, No Paresthesias, No Loss of Consciousness, No Dizziness, No Headache Psych : No Anxiety/Panic, No Depression, No SI/HI/AH/VH, No Social Issues, per family: Increased aggression and delusions Heme/Lymph: No Bruising, No Bleeding,No Lymphadenopathy Endocrine : No Polyuria, No Polydipsia, No Temperature Intolerance Yes Unobtainable due to mental status Mental Status Exam Mental Status Exam Narrative: Pt is alert and oriented to place, not month, or year nor situation; behavior is is mostly (overly) friendly however increasing restless, wandering, accidentally intrusive to peers, sometimes momentarily aggressive with peers, disorganized, typically able to be redirected. remains able to be easily redirected; patient is not in distress; dressed in hospital attire, scruffy with adequate hygiene; mood is described as good and but affect is constricted and patient sometimes tearful; eye contact appropriate; Speech is repetitive, a little pressured, normal volume and prosody; moderate psychomotor agitation present as he keeps pacing, trying to enter any open door; thought process can be goal directed, but mostly tangential and disorganized, perseverative; Thought content is on various things, mostly delusional thoughts; denies any SI/HI. Denies AVH; Patients insight and judgment impaired. Patient Appearance: Appropriate Patient Orientation: Person and Place Level of Consciousness: Restless and Alert Patient Behavior: Talkative, Suspicious, Restless, Wandering, Anxious, Fearful, Resistive to Care, Distractible and Good Eye Contact Mood Description: Anxious and Apprehensive Affect Description: Anxious and Apprehensive Patient Cognition Impaired: Yes Ability to Follow Directions: Fair Speech Pattern: Perseverating and Spontaneous Speech Memory Description: Remote Impaired and Episodic Impaired Diagnostics Vital Signs (24Hr): Vital Signs - 24 hr 06/18/24 08:00 Temperature 96.8 F Pulse Rate 73 Respiratory Rate 18 Blood Pressure 147/68 H Pulse Oximetry 96 Oxygen Delivery Method Room Air BMI result Body Mass Index 31.4 Labs 06/02/24 16:41 06/03/24 13:51 Imaging Radiology Impressions: ITS Impressions Chest X-Ray 06/09/24 10:55 IMPRESSION: No acute process. Mild hyperinflation. Head CT 06/09/24 11:20 IMPRESSION: 1. No evidence of acute intracranial hemorrhage or edematous territorial infarction. 2. Mild underlying microangiopathy. Medications Medications Current Medications Al Hydroxide/Mg Hydroxide (Magnesium Hydrox/Alum Hydrox 30 Ml Oral.Susp) 30 ml PO Q6H PRN PRN Reason: Heartburn/Nausea Last Admin: 06/13/24 19:50 Dose: 30 ml Albuterol Sulfate (Albuterol Sulfate 90 Mcg 8 Gm Inhaler) 2 puff INHALE Q4H PRN PRN Reason: Wheezing Last Admin: 06/17/24 18:55 Dose: 2 puff Amlodipine Besylate (Amlodipine Besylate 2.5 Mg Tablet) 2.5 mg PO DAILY [facility]AREN; Protocol Last Admin: 06/18/24 08:29 Dose: 2.5 mg Artificial Tears (Artificial Tears 15 Ml Drops) 1 drop EYE-BOTH Q4H PRN PRN Reason: Dry Eyes Last Admin: 06/17/24 18:21 Dose: 1 drop Aspirin (Aspirin Enteric Coated 81 Mg Tablet.Dr) 81 mg PO DAILY [facility] Last Admin: 06/18/24 08:29 Dose: 81 mg Atorvastatin Calcium (Atorvastatin Calcium 40 Mg Tablet) 40 mg PO BEDTIME [facility] Last Admin: 06/17/24 20:52 Dose: 40 mg Benztropine Mesylate (Benztropine Mesylate 0.5 Mg Tablet) 0.5 mg PO BID [facility] Last Admin: 06/18/24 08:29 Dose: 0.5 mg Clonazepam (Clonazepam 1 Mg Tablet) 1 mg PO BID@0900,1300 [facility] Last Admin: 06/18/24 08:29 Dose: 1 mg Divalproex Sodium (Divalproex Sodium Er 250 Mg Tab.Er.24h) 750 mg PO BEDTIME [facility] Last Admin: 06/17/24 20:51 Dose: 750 mg Ezetimibe (Ezetimibe 10 Mg Tablet) 10 mg PO DAILY [facility] Last Admin: 06/17/24 08:32 Dose: 10 mg Famotidine (Famotidine 20 Mg Tablet) 20 mg PO DAILY [facility] Last Admin: 06/18/24 08:29 Dose: 20 mg Ferrous Sulfate (Ferrous Sulfate 324 Mg Tablet.Dr) 324 mg PO DAILY [facility] Last Admin: 06/18/24 08:29 Dose: 324 mg Folic Acid (Folic Acid 1 Mg Tablet) 1 mg PO DAILY [facility] Last Admin: 06/18/24 08:29 Dose: 1 mg Hydroxyzine HCl (Hydroxyzine Hcl 25 Mg Tablet) 25 mg PO Q6H PRN PRN Reason: Anxiety Last Admin: 06/15/24 09:58 Dose: 25 mg Ibuprofen (Ibuprofen 600 Mg Tablet) 600 mg PO Q8H PRN PRN Reason: Pain, Mild (Pain Scale 1-3) Last Admin: 06/17/24 16:50 Dose: 600 mg Magnesium Hydroxide (Milk Of Magnesia 30 Ml Oral.Susp) 30 ml PO DAILY PRN PRN Reason: Constipation Last Admin: 06/12/24 09:33 Dose: 30 ml Metoprolol Succinate (Metoprolol Succinate Er 25 Mg Tab.Er.24h) 25 mg PO DAILY [facility]; Protocol Last Admin: 06/18/24 08:29 Dose: 25 mg Mirtazapine (Mirtazapine 30 Mg Tablet) 30 mg PO BEDTIME [facility] Last Admin: 06/17/24 20:52 Dose: 30 mg Nicotine Polacrilex (Nicotine Polacrilex 2 Mg Gum) 4 mg BUCCAL Q2H PRN PRN Reason: Nicotine Cravings Last Admin: 06/17/24 00:07 Dose: 4 mg Nicotine Polacrilex (Nicotine Polacrilex 2 Mg Gum) 4 mg BUCCAL Q2H PRN PRN Reason: Nicotine Cravings Last Admin: 06/05/24 21:42 Dose: 4 mg Olanzapine (Olanzapine 5 Mg Tablet) 5 mg PO TID PRN PRN Reason: psychosis, agitation Last Admin: 06/17/24 20:52 Dose: 5 mg Olanzapine (Olanzapine 7.5 Mg Tablet) 7.5 mg PO TID [facility] Last Admin: 06/18/24 08:29 Dose: 7.5 mg Omeprazole (Omeprazole 20 Mg Capsule.Dr) 20 mg PO DAILY@0630 [facility] Last Admin: 06/18/24 06:06 Dose: 20 mg Thiamine HCl (Thiamine Hcl 100 Mg Tablet) 100 mg PO DAILY [facility] Last Admin: 06/18/24 08:29 Dose: 100 mg Trazodone HCl (Trazodone Hcl 100 Mg Tablet) 100 mg PO BEDTIME [facility] Last Admin: 06/17/24 20:52 Dose: 100 mg Allergies Allergies Allergy/AdvReac Type Severity Reaction Status Date / Time acetaminophen Allergy Unknown PANADOL = Verified 06/02/24 16:01 ACETAMINOPHEN SHELLFISH Allergy Mild PATIENT Uncoded 06/02/24 16:01 REPORTS BURNING SENSATION THROUGHOUT OPIATES Allergy Unknown BECAME Uncoded 06/02/24 16:01 ADDICTED PANADOL Allergy Unknown UNKNOWN Uncoded 06/02/24 16:01 Assessment & Plan Assessment & Plan (1) Schizoaffective disorder: Qualifiers: Schizoaffective disorder type: unspecified Qualified Code(s): F25.9 - Schizoaffective disorder, unspecified Status: Acute Code(s): F25.9 - Schizoaffective disorder, unspecified (2) Intellectual delay: Status: Acute Code(s): F81.9 - Developmental disorder of scholastic skills, unspecified (3) CAD (coronary artery disease): Status: Acute Code(s): I25.10 - Atherosclerotic heart disease of [place] coronary artery without angina pectoris Plan Patient 59 yr old Greenlandic-speaking male with schizoaffective disorder, cognitive delay, who lives with his mother, recently discharged from on 05/20/2024 who presents via family for increased paranoia, anger and confusion. At last admission there was the thought that patient was not taking all of his medications, since the bulk of his Risperdal was prescribed at bedtime and the [facility] only came in the morning. During this last admission, Risperdal changed so that he was taking the bulk of it in the morning and with VNA, seems he is taking his medications. Despite this, family reports that his behaviors are worsening. On the unit he is friendly and calm; he is confused saying he wants to go see his children, caring a pillow in his arms and calling it his baby. Formulation/clinical reasoning: It is not clear what is causing decline given that he is most likely taking his medications regularly. Some speculation that he might be abusing substance when out and about in neighborhood however UDS is negative. Setting up family meeting to discuss. Hospital course: 06/05 Patient denies any AH to radio news writer. Denies any SI or HI and says I never look for problems... I am never aggressive... I am good... Although he denies AH, patient says there is too much noise on the unit, and that people are touching his face. Earlier he had told another staff that he was having AH to hurt himself but that he was able to ignore. Patient denies any current drug use; he adds that he used to live on the streets but now he goes to [facility]. Mycologist asked about why he had been carrying a pillow around calling it his baby; patient did not really answer but said that he has a son and a granddaughter and that his is . Patient said he wanted to go home but then agreed to wait for meeting with outpatient staff this next Saturday. -patient does seem more confused than he did at last admission. Will increase Risperdal 06/08 Patient remains disorganized, able to be goal-directed on some topics such as wanting is close but otherwise trying to enter in any open door he sees and needing frequent redirection. SW and radio news writer Discussed case with outpt team: Efraín Gray, SHIMA Brennan [place] No one is sure why patient has decompensated after decades of remaining stable on Risperdal. Says that for some reason this past month he has been more paranoid, more disorganized and when he returned from last admission he was not quite back to baseline. The past weeks patient was given away clothing on the street. This past admission was following patient argument with a neighbor. Apparently he had been peeking into this neighbor's window, scaring the neighbor and scared the neighbor's kids. They had a verbal altercation; staff arrived and patient kept saying he was going to go over to the neighbor's and take care of the neighbor... No actual threat was made and patient has no history of aggression but because of this he was taken to the hospital. Bret has discussed eviction of both patient and his elderly mother if behaviors continue. Team wondered if patient was not taking his medications however radio news writer explained that the bulk of his medications were switched so the VNA was giving him the 3 mg of Risperdal out of the 3.5 total daily dose making this less likely the issue. They say at baseline he paces and is anxious but he pretty much make sense and though he may say some delusional things his conversations are overall able to remain grounded in reality. Discussed various options including temporary housing and likelihood that patient will at some point in the near future need some type of group living arrangement as his mother is elderly and with some dementia Unclear why patient has decompensated; Increased Risperdal to see if that can help. Thus far no clear organic etiology; will get additional labs to trying rule out other possible causes, including HIV and RPR, magnesium, B12/folate; will likely get head CT, though anticipate that results will be unremarkable. UDS was negative and UA showed no bacterial growth. Will try to get more collateral from family 06/09 Patient remains confused and disorganized, jumping from topic to topic. He agrees to remain to have meeting on Saturday but otherwise says he is missing home. Patient denies any chest pain but passes hard to say that he has a heart condition and has a surgically implanted mesh. Patient starts to cry and says that people are laughing at him that he can hear them doing so; he also said that a staff person's came in to his room last night and choked. Patient started taking should often group today. Looking for any organic contribution to patient's decompensation, however: labs thus far unremarkable; magnesium/calcium WNL; electrolytes WNL Chest x-ray pending Repeat UA unremarkable; no evidence of UTI -Head CT however did show evidence of Mild underlying microangiopathy Which could indicate vascular dementia as a possible contribution, which does seem to worsen in a stepwise fashion Will continue with current medication regimen; if no improvement will consider switching to Zyprexa which is on the [facility] order. 06/11 Patient remains disorganized, delusional. Mycologist another staff person saying it was his son; telling radio news writer he is going up by radio news writer a car, telling other staff members the same. Saying he has to go downstairs and feed the baby... Review of chart shows that patient has been getting Zyprexa p.r.n. consistently which seems to subdue patients agitation for a bit however but has thus far not helped resolve psychotic symptoms. -it is unlikely that is scheduling Zyprexa will make much difference says he has gotten significant doses over the past 5 days; will leave his p.r.n. for now; however will monitor how much antipsychotic patient is getting and lower p.r.n. availability to b.i.d.. -Reviewed recent EKG and QTc Int : 489 ms which is mildly prolonged; will monitor 06/07 total daily dose 5 mg 06/08 15 mg 06/09 10 mg 06/10 15 mg 06/11 5 mg 06/12 remains delusional, disorganized, intermittently intrusive with peers, sometimes a little aggressive with peers but remains redirectable. Considering maybe switching to Zyprexa since Risperdal isn't helping with psychosis and perhaps Zyprexa can subdue agitated behaviors -outpatient team came to visit and report patient is far from baseline at which he had been for a decade until about a month ago 06/13 Remains delusional, disorganized. A little more agitated and today went after peer (unprovoked) at the phone, then went after another peer. Staff able to redirect each time and pt willing to take medication. Will dc risperdal since not making any differnece will instead try zyprexa 5mg TID...as a prn, it's helped subdue agitated behavior, though has not yet reduced delusional thinking. 06/14 Last night patient continued to be aggressive towards peers, delusional; radio news writer on-call and discussed with nurse and gave Ativan 2 mg to see if that could subdue behaviors, trying to avoid giving more antipsychotic. However he remained intrusive and agitated towards peers, a little more difficult to redirect and so Thorazine 50 mg p.o. given. -Today, Patient less agitated and has not been aggressive towards peers; a little more calm and though he remains disorganized, delusional, a little easier to extract oneself conversation -typically patient is not aggressive towards peers and hopefully these behaviors will resolve with switch to Zyprexa; however he remains very intrusive, going into people's rooms, hanging up telephone calls, constantly asking nonsensical questions and he remains at risk for provoking peers. Will continue to monitor behaviors towards others and will strongly consider transferring patient to Geriatric unit for his own safety. Mycologist was Considering that perhaps patient maybe having some manic behaviors and might benefit from Depakote however since there is some mild improvement will continue with Zyprexa t.i.d. dosing for now and monitor 06/15 Patient remains disorganized, intrusive and asks to go home. Patient agreed to sign 3 day notice. Collateral: Chris reports that about once a year, patient gets dysregulated for a few weeks to a month, goes to the hospital and then seems to go back to normal. He said it happened last summer around April or May during which time patient had similar behaviors. He was on his way to his day program but never made it, picked up by police disheveled, confused, no shoes, wet and disoriented. Was hospitalized. Chris reports that since then he has been back to his baseline until about a month ago. He reports that at the apartment he had a sudden change, disoriented, using bad words, saying bad things to the neighbors, giving way is close. Chris thinks that patient is getting a little better since this admission and it is overall less intense than last year. Shared some additional history, the patient was but no children; they years ago. Grew up going to a school for people with intellectual disability. 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 Did get involved in some drugs, cocaine and huffing on the streets in [place]; does not think much drug abuses happened here other than cannabis -Given collateral health services information specialist again thinks that patient might benefit from Depakote since he he continues to have manic behaviors which per his brother, are episodic. 06/16 Starting Depakote; will continue with Zyprexa for now but will likely go back to Risperdal since it can be once a day dosing and seems to maintain patient for nearly a year in between manic episodes -discussed with patient need to remain on unit for medication, discussed diagnosis; patient continued to insist he wanted to go home and would not retract 3 day 06/17 continue tx. 3 day up tomorrow. 06/18 file for PLAN: 3 day notice Guardian; pt has given permission to talk with his family 1:1 for accidental intrusiveness to others and needing to be redirected Start Depakote Ir 250mg one time START Depakote ER 500mg qhs continue Zyprexa 5mg TID consider Depakote if aggressive behaviors return DC risperidone (was on 3 mg b.i.d. up from home dose which was a total daily dose of 3.5mg)) Mirtazapine 30 mg PO BEDTIME [facility] Benztropine Mesylate 0.5 mg PO BID [facility] Clonazepam 0.5 mg PO BID [facility] Lower PRN Zyprexa 5mg to BID (Zyprexa seems to help subdue agitation but not resolve psychosis; will lower dose available given mild prolongation of QTC) Omeprazole 20 mg PO DAILY@0630 [facility] Albuterol Sulfate 2 puff INHALE Q4H PRN Amlodipine Besylate 2.5 mg PO DAILY [facility]; Protocol Artificial Tears 1 drop EYE-BOTH Q4H PRN Aspirin 81 mg PO DAILY [facility] Atorvastatin Calcium 40 mg PO BEDTIME [facility] Ezetimibe 10 mg PO DAILY [facility] Ferrous Sulfate 324 mg PO DAILY [facility] Folic Acid 1 mg PO DAILY [facility] Hydroxyzine HCl 25 mg PO Q6H PRN Metoprolol Succinate 25 mg PO DAILY [facility]; Protocol Thiamine HCl 100 mg PO DAILY [facility] Trazodone HCl 100 mg PO BEDTIME [facility] effective to March 26, 2025: Risperdal up to 10mg daily (primary) Geodon up to 60mg daily Zyprexa up to 25mg daily later in evening pt complained of right sided chest pain; vitals WNL and pt not in any distress but given hx for CAD ordered EKG and trop Reason for continued inpatient stay Substantial Risk for: inability to function Time Spent With Patient Time: Total time managing care of this patient today ____ minutes.
[2024-06-18] MEDS: Ezetimibe 10 MG TABLET PO (09:36)
[2024-06-18] MEDS: Nicotine Polacrilex 2 MG GUM 4 MG BUCCAL (14:45)
[2024-06-18 20:00] VITALS: BP 117/69; PULSE 73; RESP 18; TEMP 36.4; O2SAT 100
[2024-06-18] MEDS: hydrOXYzine HCL 25 MG TABLET PO (20:47)
[2024-06-18] MEDS: Atorvastatin Calcium 40 MG TABLET PO (20:47)
[2024-06-18] MEDS: traZODone HCL 100 MG TABLET PO (20:48)
[2024-06-18] MEDS: Divalproex Sodium ER 250 MG TAB.ER.24H 750 MG PO (20:48)
[2024-06-18] MEDS: Mirtazapine 30 MG TABLET PO (20:49)
[2024-06-19] MEDS: Ibuprofen 600 MG TABLET PO ×2 (01:25→20:27)
[2024-06-19] MEDS: OLANZapine 5 MG TABLET PO ×3 (01:25→21:59)
[2024-06-19] MEDS: OLANZapine ODT 10 MG TAB.RAPDIS TRANSLINGU (02:52)
[2024-06-19] MEDS: LORazepam 1 MG TABLET 2 MG PO (02:52)
--- NOTE | 2024-06-19 09:28 | P.EN_ITS ---
Event Note Date of Service: 06/19/24 Event Note: Keypuncher spoke with patient's guardian, Blair Rushinglatanya [phone] on 06/18/24. Discussed treatment, plans with which guardian agrees, including treatment with Depakote or any other mood stabilizer necessary. Time Spent With Patient Time: Total time managing care of this patient today ____ minutes.
--- NOTE | 2024-06-19 09:28 | PM.EVENT ---
Event Note Date of Service: 06/19/24 Event Note: Machinist 2Nd Shift spoke with patient's guardian, Blair Rushinglatanya [phone] on 06/18/24. Discussed treatment, plans with which guardian agrees, including treatment with Depakote or any other mood stabilizer necessary. Time Spent With Patient Time: Total time managing care of this patient today ____ minutes.
[2024-06-19 09:55] VITALS: BP 115/72; PULSE 85; RESP 18; TEMP 36.6; O2SAT 97
[2024-06-19] MEDS: Folic Acid 1 MG TABLET PO (09:58)
[2024-06-19] MEDS: Thiamine HCL 100 MG TABLET PO (09:58)
[2024-06-19] MEDS: OLANZapine 7.5 MG TABLET PO ×3 (09:58→20:27)
[2024-06-19] MEDS: Ezetimibe 10 MG TABLET PO (09:59)
[2024-06-19] MEDS: Famotidine 20 MG TABLET PO (09:59)
[2024-06-19] MEDS: clonazePAM 1 MG TABLET PO ×2 (09:59→12:58)
[2024-06-19] MEDS: Aspirin Enteric Coated 81 MG TABLET.DR PO (09:59)
[2024-06-19] MEDS: Metoprolol Succinate ER 25 MG TAB.ER.24H PO (09:59)
[2024-06-19] MEDS: Benztropine Mesylate 0.5 MG TABLET PO ×2 (09:59→20:26)
[2024-06-19] MEDS: Ferrous Sulfate 324 MG TABLET.DR PO (09:59)
[2024-06-19] MEDS: amLODIPine Besylate 2.5 MG TABLET PO (09:59)
[2024-06-19] MEDS: Omeprazole 20 MG CAPSULE.DR PO (10:02)
--- NOTE | 2024-06-19 12:17 | HO.PSYCHPN ---
Subjective Subjective Date of Service: 06/19/24 Reason For Visit: Dysregulated Subjective Notes: Section 7 Interim History: Pt had difficulty sleeping through the night. Although he is able to tell that he is at [facility] and reports he is here for his nervios (anxiety in armenian), he believes he knows most people on the unit and that they are his family members. He thinks younger female staff are his nieces and he is taking them home. He is often intrusive in a way of wanting to hug and kiss peers as he thinks they are family. No insight and very limited at baseline. Medication Compliance: Yes Review of Systems Review of Systems Constitutional : No Weight loss, No Fever, No Chills, No Night Sweats, No Fatigue, No Malaise ENT/Mouth : No Hearing loss, No Ear Pain, No Nasal Congestion, No Sinus Pain, No Hoarseness, No sore throat, No Rhinorrhea, No Swallowing Difficulty Eyes: No Eye Pain, No Swelling, No Redness, No Foreign Body, No Discharge, No Vision Changes Cardiovascular : No Chest Pain, No SOB, No Dyspnea on Exertion, No Orthopnea, No Edema, No Palpitations Respiratory : No Cough, No Sputum, No Wheezing, No Smoke Exposure, No Dyspnea Gastrointestinal : No Nausea, No Vomiting, No Diarrhea, No Constipation, No abdominal Pain, No Hematochezia, No Melena Genitourinary : no irregular bleeding, No Dysuria, No Urinary Frequency, No Hematuria, No Urinary Incontinence, No Urgency, No Flank Pain, No Urinary Flow Changes, No Hesitancy Musculoskeletal : No joint pain, No Myalgias, No Joint Swelling Skin : No Skin Lesions, No rash Neuro : No Weakness, No Numbness, No Paresthesias, No Loss of Consciousness, No Dizziness, No Headache Psych : No Anxiety/Panic, No Depression, No SI/HI/AH/VH, No Social Issues, per family: Increased aggression and delusions Heme/Lymph: No Bruising, No Bleeding,No Lymphadenopathy Endocrine : No Polyuria, No Polydipsia, No Temperature Intolerance Yes Unobtainable due to mental status Mental Status Exam Mental Status Exam Narrative: Pt is alert and oriented; behavior is is mostly (overly) friendly however increasing restless, wandering, accidentally intrusive to peers, sometimes momentarily aggressive with peers, disorganized, typically able to be redirected. remains able to be easily redirected; patient is not in distress; dressed in hospital attire, scruffy with adequate hygiene; mood is described as good and but affect is constricted and patient sometimes tearful; eye contact appropriate; Speech is repetitive, a little pressured, normal volume and prosody; moderate psychomotor agitation present as he keeps pacing, trying to enter any open door; thought process can be goal directed, but mostly tangential and disorganized, perseverative; Thought content is on various things, mostly delusional thoughts; denies any SI/HI. Denies AVH; Patients insight and judgment impaired. Diagnostics Vital Signs (24Hr): Vital Signs - 24 hr 06/18/24 20:00 06/19/24 09:55 Temperature 97.5 F 97.9 F Pulse Rate 73 85 Respiratory Rate 18 18 Blood Pressure 117/69 115/72 Pulse Oximetry 100 97 Oxygen Delivery Method Room Air BMI result Body Mass Index 30.7 Labs 06/02/24 16:41 06/03/24 13:51 Imaging Radiology Impressions: ITS Impressions Chest X-Ray 06/09/24 10:55 IMPRESSION: No acute process. Mild hyperinflation. Head CT 06/09/24 11:20 IMPRESSION: 1. No evidence of acute intracranial hemorrhage or edematous territorial infarction. 2. Mild underlying microangiopathy. Medications Medications Current Medications Al Hydroxide/Mg Hydroxide (Magnesium Hydrox/Alum Hydrox 30 Ml Oral.Susp) 30 ml PO Q6H PRN PRN Reason: Heartburn/Nausea Last Admin: 06/13/24 19:50 Dose: 30 ml Albuterol Sulfate (Albuterol Sulfate 90 Mcg 8 Gm Inhaler) 2 puff INHALE Q4H PRN PRN Reason: Wheezing Last Admin: 06/17/24 18:55 Dose: 2 puff Amlodipine Besylate (Amlodipine Besylate 2.5 Mg Tablet) 2.5 mg PO DAILY KAREN; Protocol Last Admin: 06/19/24 09:59 Dose: 2.5 mg Artificial Tears (Artificial Tears 15 Ml Drops) 1 drop EYE-BOTH Q4H PRN PRN Reason: Dry Eyes Last Admin: 06/17/24 18:21 Dose: 1 drop Aspirin (Aspirin Enteric Coated 81 Mg Tablet.) 81 mg PO DAILY KAREN Last Admin: 06/19/24 09:59 Dose: 81 mg Atorvastatin Calcium (Atorvastatin Calcium 40 Mg Tablet) 40 mg PO BEDTIME PENDING SALE TO [facility] Last Admin: 06/18/24 20:47 Dose: 40 mg Benztropine Mesylate (Benztropine Mesylate 0.5 Mg Tablet) 0.5 mg PO BID PENDING SALE TO [facility] Last Admin: 06/19/24 09:59 Dose: 0.5 mg Clonazepam (Clonazepam 1 Mg Tablet) 1 mg PO BID@0900,1300 PENDING SALE TO [facility] Last Admin: 06/19/24 09:59 Dose: 1 mg Divalproex Sodium (Divalproex Sodium Er 250 Mg Tab.Er.24h) 750 mg PO BEDTIME PENDING SALE TO [facility] Last Admin: 06/18/24 20:48 Dose: 750 mg Ezetimibe (Ezetimibe 10 Mg Tablet) 10 mg PO DAILY PEND[facility] SALE [facility] Last Admin: 06/19/24 09:59 Dose: 10 mg Famotidine (Famotidine 20 Mg Tablet) 20 mg PO DAILY PENDING SALE TO [facility] Last Admin: 06/19/24 09:59 Dose: 20 mg Ferrous Sulfate (Ferrous Sulfate 324 Mg Tablet.Dr) 324 mg PO DAILY PENDING SALE TO [facility] Last Admin: 06/19/24 09:59 Dose: 324 mg Folic Acid (Folic Acid 1 Mg Tablet) 1 mg PO DAILY [facility]END[facility] Last Admin: 06/19/24 09:58 Dose: 1 mg Hydroxyzine HCl (Hydroxyzine Hcl 25 Mg Tablet) 25 mg PO Q6H PRN PRN Reason: Anxiety Last Admin: 06/18/24 20:47 Dose: 25 mg Ibuprofen (Ibuprofen 600 Mg Tablet) 600 mg PO Q8H PRN PRN Reason: Pain, Mild (Pain Scale 1-3) Last Admin: 06/19/24 01:25 Dose: 600 mg Magnesium Hydroxide (Milk Of Magnesia 30 Ml Oral.Susp) 30 ml PO DAILY PRN PRN Reason: Constipation Last Admin: 06/12/24 09:33 Dose: 30 ml Metoprolol Succinate (Metoprolol Succinate Er 25 Mg Tab.Er.24h) 25 mg PO DAILY [facility]END[facility] SALE [facility]; Protocol Last Admin: 06/19/24 09:59 Dose: 25 mg Mirtazapine (Mirtazapine 30 Mg Tablet) 30 mg PO BEDTIME [facility]END[facility] SALE TO [facility] Last Admin: 06/18/24 20:49 Dose: 30 mg Nicotine Polacrilex (Nicotine Polacrilex 2 Mg Gum) 4 mg BUCCAL Q2H PRN PRN Reason: Nicotine Cravings Last Admin: 06/18/24 14:45 Dose: 4 mg Nicotine Polacrilex (Nicotine Polacrilex 2 Mg Gum) 4 mg BUCCAL Q2H PRN PRN Reason: Nicotine Cravings Last Admin: 06/05/24 21:42 Dose: 4 mg Olanzapine (Olanzapine 5 Mg Tablet) 5 mg PO TID PRN PRN Reason: psychosis, agitation Last Admin: 06/19/24 01:25 Dose: 5 mg Olanzapine (Olanzapine 7.5 Mg Tablet) 7.5 mg PO TID PENDING SALE TO [facility] Last Admin: 06/19/24 09:58 Dose: 7.5 mg Omeprazole (Omeprazole 20 Mg Capsule.Dr) 20 mg PO DAILY@0630 PENDING SALE TO [facility] Last Admin: 06/19/24 10:02 Dose: 20 mg Thiamine HCl (Thiamine Hcl 100 Mg Tablet) 100 mg PO DAILY [facility] Last Admin: 06/19/24 09:58 Dose: 100 mg Trazodone HCl (Trazodone Hcl 100 Mg Tablet) 100 mg PO BEDTIME [facility]END[facility] Last Admin: 06/18/24 20:48 Dose: 100 mg Allergies Allergies Allergy/AdvReac Type Severity Reaction Status Date / Time acetaminophen Allergy Unknown PANADOL = Verified 06/02/24 16:01 ACETAMINOPHEN SHELLFISH Allergy Mild PATIENT Uncoded 06/02/24 16:01 REPORTS BURNING SENSATION THROUGHOUT OPIATES Allergy Unknown BECAME Uncoded 06/02/24 16:01 ADDICTED PANADOL Allergy Unknown UNKNOWN Uncoded 06/02/24 16:01 Assessment & Plan Assessment & Plan (1) Schizoaffective disorder: Qualifiers: Schizoaffective disorder type: unspecified Qualified Code(s): F25.9 - Schizoaffective disorder, unspecified Status: Acute Code(s): F25.9 - Schizoaffective disorder, unspecified (2) Intellectual delay: Status: Acute Code(s): F81.9 - Developmental disorder of scholastic skills, unspecified (3) CAD (coronary artery disease): Status: Acute Code(s): I25.10 - Atherosclerotic heart disease of [place] coronary artery without angina pectoris Plan Patient 59 yr old Bangladeshi-speaking male with schizoaffective disorder, cognitive delay, who lives with his mother, recently discharged from on 05/20/2024 who presents via family for increased paranoia, anger and confusion. At last admission there was the thought that patient was not taking all of his medications, since the bulk of his Risperdal was prescribed at bedtime and the [facility] only came in the morning. During this last admission, Risperdal changed so that he was taking the bulk of it in the morning and with VNA, seems he is taking his medications. Despite this, family reports that his behaviors are worsening. On the unit he is friendly and calm; he is confused saying he wants to go see his children, caring a pillow in his arms and calling it his baby. Formulation/clinical reasoning: It is not clear what is causing decline given that he is most likely taking his medications regularly. Some speculation that he might be abusing substance when out and about in neighborhood however UDS is negative. Setting up family meeting to discuss. Hospital course: 06/05 Patient denies any AH to sports book writer. Denies any SI or HI and says I never look for problems... I am never aggressive... I am good... Although he denies AH, patient says there is too much noise on the unit, and that people are touching his face. Earlier he had told another staff that he was having AH to hurt himself but that he was able to ignore. Patient denies any current drug use; he adds that he used to live on the streets but now he goes to scientologist. Tableau Lead asked about why he had been carrying a pillow around calling it his baby; patient did not really answer but said that he has a son and a granddaughter and that his is . Patient said he wanted to go home but then agreed to wait for meeting with outpatient staff this next Saturday. -patient does seem more confused than he did at last admission. Will increase Risperdal 06/08 Patient remains disorganized, able to be goal-directed on some topics such as wanting is close but otherwise trying to enter in any open door he sees and needing frequent redirection. SW and sports book writer Discussed case with outpt team: SHIMA Ruby DDS Marlyn HOOVER No one is sure why patient has decompensated after decades of remaining stable on Risperdal. Says that for some reason this past month he has been more paranoid, more disorganized and when he returned from last admission he was not quite back to baseline. The past weeks patient was given away clothing on the street. This past admission was following patient argument with a neighbor. Apparently he had been peeking into this neighbor's window, scaring the neighbor and scared the neighbor's kids. They had a verbal altercation; staff arrived and patient kept saying he was going to go over to the neighbor's and take care of the neighbor... No actual threat was made and patient has no history of aggression but because of this he was taken to the hospital. Bret has discussed eviction of both patient and his elderly mother if behaviors continue. Team wondered if patient was not taking his medications however sports book writer explained that the bulk of his medications were switched so the VNA was giving him the 3 mg of Risperdal out of the 3.5 total daily dose making this less likely the issue. They say at baseline he paces and is anxious but he pretty much make sense and though he may say some delusional things his conversations are overall able to remain grounded in reality. Discussed various options including temporary housing and likelihood that patient will at some point in the near future need some type of group living arrangement as his mother is elderly and with some dementia Unclear why patient has decompensated; Increased Risperdal to see if that can help. Thus far no clear organic etiology; will get additional labs to trying rule out other possible causes, including HIV and RPR, magnesium, B12/folate; will likely get head CT, though anticipate that results will be unremarkable. UDS was negative and UA showed no bacterial growth. Will try to get more collateral from family 06/09 Patient remains confused and disorganized, jumping from topic to topic. He agrees to remain to have meeting on Saturday but otherwise says he is missing home. Patient denies any chest pain but passes hard to say that he has a heart condition and has a surgically implanted mesh. Patient starts to cry and says that people are laughing at him that he can hear them doing so; he also said that a staff person's came in to his room last night and choked. Patient started taking should often group today. Looking for any organic contribution to patient's decompensation, however: labs thus far unremarkable; magnesium/calcium WNL; electrolytes WNL Chest x-ray pending Repeat UA unremarkable; no evidence of UTI -Head CT however did show evidence of Mild underlying microangiopathy Which could indicate vascular dementia as a possible contribution, which does seem to worsen in a stepwise fashion Will continue with current medication regimen; if no improvement will consider switching to Zyprexa which is on the [facility] order. 06/11 Patient remains disorganized, delusional. Tableau Lead another staff person saying it was his son; telling sports book writer he is going up by sports book writer a car, telling other staff members the same. Saying he has to go downstairs and feed the baby... Review of chart shows that patient has been getting Zyprexa p.r.n. consistently which seems to subdue patients agitation for a bit however but has thus far not helped resolve psychotic symptoms. -it is unlikely that is scheduling Zyprexa will make much difference says he has gotten significant doses over the past 5 days; will leave his p.r.n. for now; however will monitor how much antipsychotic patient is getting and lower p.r.n. availability to b.i.d.. -Reviewed recent EKG and QTc Int : 489 ms which is mildly prolonged; will monitor 06/07 total daily dose 5 mg 06/08 15 mg 06/09 10 mg 06/10 15 mg 06/11 5 mg 06/12 remains delusional, disorganized, intermittently intrusive with peers, sometimes a little aggressive with peers but remains redirectable. Considering maybe switching to Zyprexa since Risperdal isn't helping with psychosis and perhaps Zyprexa can subdue agitated behaviors -outpatient team came to visit and report patient is far from baseline at which he had been for a decade until about a month ago 06/13 Remains delusional, disorganized. A little more agitated and today went after peer (unprovoked) at the phone, then went after another peer. Staff able to redirect each time and pt willing to take medication. Will dc risperdal since not making any differnece will instead try zyprexa 5mg TID...as a prn, it's helped subdue agitated behavior, though has not yet reduced delusional thinking. 06/14 Last night patient continued to be aggressive towards peers, delusional; sports book writer on-call and discussed with nurse and gave Ativan 2 mg to see if that could subdue behaviors, trying to avoid giving more antipsychotic. However he remained intrusive and agitated towards peers, a little more difficult to redirect and so Thorazine 50 mg p.o. given. -Today, Patient less agitated and has not been aggressive towards peers; a little more calm and though he remains disorganized, delusional, a little easier to extract oneself conversation -typically patient is not aggressive towards peers and hopefully these behaviors will resolve with switch to Zyprexa; however he remains very intrusive, going into people's rooms, hanging up telephone calls, constantly asking nonsensical questions and he remains at risk for provoking peers. Will continue to monitor behaviors towards others and will strongly consider transferring patient to Geriatric unit for his own safety. Tableau Lead was Considering that perhaps patient maybe having some manic behaviors and might benefit from Depakote however since there is some mild improvement will continue with Zyprexa t.i.d. dosing for now and monitor 06/15 Patient remains disorganized, intrusive and asks to go home. Patient agreed to sign 3 day notice. Collateral: Chris reports that about once a year, patient gets dysregulated for a few weeks to a month, goes to the hospital and then seems to go back to normal. He said it happened last summer around April or May during which time patient had similar behaviors. He was on his way to his day program but never made it, picked up by police disheveled, confused, no shoes, wet and disoriented. Was hospitalized. Chris reports that since then he has been back to his baseline until about a month ago. He reports that at the apartment he had a sudden change, disoriented, using bad words, saying bad things to the neighbors, giving way is close. Chris thinks that patient is getting a little better since this admission and it is overall less intense than last year. Shared some additional history, the patient was but no children; they years ago. Grew up going to a school for people with intellectual disability. 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 Did get involved in some drugs, cocaine and huffing on the streets in [place]; does not think much drug abuses happened here other than cannabis -Given collateral care information associate again thinks that patient might benefit from Depakote since he he continues to have manic behaviors which per his brother, are episodic. 06/16 Starting Depakote; will continue with Zyprexa for now but will likely go back to Risperdal since it can be once a day dosing and seems to maintain patient for nearly a year in between manic episodes -discussed with patient need to remain on unit for medication, discussed diagnosis; patient continued to insist he wanted to go home and would not retract 3 day 06/17 continue tx. 3 day up tomorrow. 06/18 file for &06/19 continue tx. PLAN: 3 day notice Guardian; pt has given permission to talk with his family 1:1 for accidental intrusiveness to others and needing to be redirected Start Depakote Ir 250mg one time START Depakote ER 500mg qhs continue Zyprexa 5mg TID consider Depakote if aggressive behaviors return DC risperidone (was on 3 mg b.i.d. up from home dose which was a total daily dose of 3.5mg)) Mirtazapine 30 mg PO BEDTIME KAREN Benztropine Mesylate 0.5 mg PO BID KAREN Clonazepam 0.5 mg PO BID KAREN Lower PRN Zyprexa 5mg to BID (Zyprexa seems to help subdue agitation but not resolve psychosis; will lower dose available given mild prolongation of QTC) Omeprazole 20 mg PO DAILY@0630 KAREN Albuterol Sulfate 2 puff INHALE Q4H PRN Amlodipine Besylate 2.5 mg PO DAILY PENDING SALE TO [facility]; Protocol Artificial Tears 1 drop EYE-BOTH Q4H PRN Aspirin 81 mg PO DAILY PENDING SALE TO [facility] Atorvastatin Calcium 40 mg PO BEDTIME PENDING SALE TO [facility] Ezetimibe 10 mg PO DAILY PENDING SALE TO [facility] Ferrous Sulfate 324 mg PO DAILY PENDING SALE TO [facility] Folic Acid 1 mg PO DAILY PENDING SALE TO [facility] Hydroxyzine HCl 25 mg PO Q6H PRN Metoprolol Succinate 25 mg PO DAILY PENDING SALE TO [facility]; Protocol Thiamine HCl 100 mg PO DAILY PENDING SALE TO [facility] Trazodone HCl 100 mg PO BEDTIME [facility] effective to March 26, 2025: Risperdal up to 10mg daily (primary) Geodon up to 60mg daily Zyprexa up to 25mg daily later in evening pt complained of right sided chest pain; vitals WNL and pt not in any distress but given hx for CAD ordered EKG and trop Reason for continued inpatient stay Substantial Risk for: inability to function Time Spent With Patient Time: Total time managing care of this patient today ____ minutes.
[2024-06-19 20:00] VITALS: BP 134/72; PULSE 75; RESP 18; TEMP 35.9; O2SAT 97
[2024-06-19] MEDS: Mirtazapine 30 MG TABLET PO (20:26)
[2024-06-19] MEDS: Atorvastatin Calcium 40 MG TABLET PO (20:26)
[2024-06-19] MEDS: Divalproex Sodium ER 250 MG TAB.ER.24H 750 MG PO (20:26)
[2024-06-19] MEDS: traZODone HCL 100 MG TABLET PO (20:27)
[2024-06-19] MEDS: hydrOXYzine HCL 25 MG TABLET PO (21:58)
[2024-06-20] MEDS: Nicotine Polacrilex 2 MG GUM 4 MG BUCCAL ×2 (03:21→20:01)
[2024-06-20] MEDS: Omeprazole 20 MG CAPSULE.DR PO (06:04)
[2024-06-20 07:48] LABS: Ammonia 72 umol/L (13-55)
[2024-06-20 07:57] LABS: Alanine Aminotransferase 28 U/L (0-40); Albumin Level 4.1 g/dL (3.5-5.0); Alkaline Phosphatase 88 U/L (39-117); Aspartate Amino Transferase 23 U/L (5-37); Bilirubin Direct < 0.2 mg/dL (0.0-0.5); Bilirubin Total 0.2 mg/dL (0.0-1.0); Total Protein 7.7 g/dL (6.5-8.0)
[2024-06-20 08:10] VITALS: BP 132/70; PULSE 76; RESP 14; TEMP 36.6; O2SAT 97
[2024-06-20] MEDS: clonazePAM 1 MG TABLET PO ×2 (08:23→13:33)
[2024-06-20] MEDS: Famotidine 20 MG TABLET PO (08:23)
[2024-06-20 08:24] VITALS: BP 132/70; PULSE 76
[2024-06-20] MEDS: Metoprolol Succinate ER 25 MG TAB.ER.24H PO (08:24)
[2024-06-20] MEDS: OLANZapine 7.5 MG TABLET PO ×3 (08:24→19:59)
[2024-06-20] MEDS: Aspirin Enteric Coated 81 MG TABLET.DR PO (08:25)
[2024-06-20] MEDS: Benztropine Mesylate 0.5 MG TABLET PO ×2 (08:25→19:58)
[2024-06-20] MEDS: Ferrous Sulfate 324 MG TABLET.DR PO (08:25)
[2024-06-20] MEDS: Thiamine HCL 100 MG TABLET PO (08:25)
[2024-06-20 08:26] VITALS: BP 132/70
[2024-06-20] MEDS: Ezetimibe 10 MG TABLET PO (08:26)
[2024-06-20] MEDS: Folic Acid 1 MG TABLET PO (08:26)
[2024-06-20] MEDS: amLODIPine Besylate 2.5 MG TABLET PO (08:26)
--- NOTE | 2024-06-20 08:30 | HO.PSYCHPN ---
Subjective Subjective Date of Service: 06/20/24 Reason For Visit: Dysregulated Subjective Notes: Section 7 Interim History: Pt had difficulty sleeping through the night. Although he is able to tell that he is at [place] and reports he is here for his nervios (anxiety in latvian), he believes he knows most people on the unit and that they are his family members. He thinks younger female staff are his nieces and he is taking them home. He is often intrusive in a way of wanting to hug and kiss peers as he thinks they are family. No insight and very limited at baseline. Review of Systems Review of Systems Constitutional : No Weight loss, No Fever, No Chills, No Night Sweats, No Fatigue, No Malaise ENT/Mouth : No Hearing loss, No Ear Pain, No Nasal Congestion, No Sinus Pain, No Hoarseness, No sore throat, No Rhinorrhea, No Swallowing Difficulty Eyes: No Eye Pain, No Swelling, No Redness, No Foreign Body, No Discharge, No Vision Changes Cardiovascular : No Chest Pain, No SOB, No Dyspnea on Exertion, No Orthopnea, No Edema, No Palpitations Respiratory : No Cough, No Sputum, No Wheezing, No Smoke Exposure, No Dyspnea Gastrointestinal : No Nausea, No Vomiting, No Diarrhea, No Constipation, No abdominal Pain, No Hematochezia, No Melena Genitourinary : no irregular bleeding, No Dysuria, No Urinary Frequency, No Hematuria, No Urinary Incontinence, No Urgency, No Flank Pain, No Urinary Flow Changes, No Hesitancy Musculoskeletal : No joint pain, No Myalgias, No Joint Swelling Skin : No Skin Lesions, No rash Neuro : No Weakness, No Numbness, No Paresthesias, No Loss of Consciousness, No Dizziness, No Headache Psych : No Anxiety/Panic, No Depression, No SI/HI/AH/VH, No Social Issues, per family: Increased aggression and delusions Heme/Lymph: No Bruising, No Bleeding,No Lymphadenopathy Endocrine : No Polyuria, No Polydipsia, No Temperature Intolerance Yes Unobtainable due to mental status Mental Status Exam Mental Status Exam Narrative: Pt is alert and oriented to place, not situation; behavior is is mostly (overly) friendly however increasing restless, wandering, accidentally intrusive to peers, sometimes momentarily aggressive with peers, disorganized, typically able to be redirected. remains able to be easily redirected; patient is not in distress; dressed in hospital attire, scruffy with adequate hygiene; mood is described as good and but affect is constricted and patient sometimes tearful; eye contact appropriate; Speech is repetitive, a little pressured, normal volume and prosody; moderate psychomotor agitation present as he keeps pacing, trying to enter any open door; thought process can be goal directed, but mostly tangential and disorganized, perseverative; Thought content is on various things, mostly delusional thoughts; denies any SI/HI. Denies AVH; Patients insight and judgment impaired. Diagnostics Vital Signs (24Hr): Vital Signs - 24 hr 06/19/24 09:55 06/19/24 20:00 06/20/24 08:10 Temperature 97.9 F 96.7 F L 97.9 F Pulse Rate 85 75 76 Respiratory Rate 18 18 14 Blood Pressure 115/72 134/72 132/70 Pulse Oximetry 97 97 97 Oxygen Delivery Method Room Air Room Air 06/20/24 08:24 06/20/24 08:26 Temperature Pulse Rate 76 Respiratory Rate Blood Pressure 132/70 132/70 Pulse Oximetry Oxygen Delivery Method BMI result Body Mass Index 30.7 Labs 06/02/24 16:41 06/03/24 13:51 Labs: Laboratory Results - last 48 hr 06/20/24 07:22 Total Bilirubin 0.2 Direct Bilirubin < 0.2 AST 23 ALT 28 Alkaline Phosphatase 88 Ammonia 72 H Total Protein 7.7 Albumin 4.1 Valproic Acid 65.0 Imaging Radiology Impressions: ITS Impressions Chest X-Ray 06/09/24 10:55 IMPRESSION: No acute process. Mild hyperinflation. Head CT 06/09/24 11:20 IMPRESSION: 1. No evidence of acute intracranial hemorrhage or edematous territorial infarction. 2. Mild underlying microangiopathy. Medications Medications Current Medications Al Hydroxide/Mg Hydroxide (Magnesium Hydrox/Alum Hydrox 30 Ml Oral.Susp) 30 ml PO Q6H PRN PRN Reason: Heartburn/Nausea Last Admin: 06/13/24 19:50 Dose: 30 ml Albuterol Sulfate (Albuterol Sulfate 90 Mcg 8 Gm Inhaler) 2 puff INHALE Q4H PRN PRN Reason: Wheezing Last Admin: 06/17/24 18:55 Dose: 2 puff Amlodipine Besylate (Amlodipine Besylate 2.5 Mg Tablet) 2.5 mg PO DAILY [facility]; Protocol Last Admin: 06/20/24 08:26 Dose: 2.5 mg Artificial Tears (Artificial Tears 15 Ml Drops) 1 drop EYE-BOTH Q4H PRN PRN Reason: Dry Eyes Last Admin: 06/17/24 18:21 Dose: 1 drop Aspirin (Aspirin Enteric Coated 81 Mg Tablet.) 81 mg PO DAILY [facility] Last Admin: 06/20/24 08:25 Dose: 81 mg Atorvastatin Calcium (Atorvastatin Calcium 40 Mg Tablet) 40 mg PO BEDTIME [facility] Last Admin: 06/19/24 20:26 Dose: 40 mg Benztropine Mesylate (Benztropine Mesylate 0.5 Mg Tablet) 0.5 mg PO BID [facility] Last Admin: 06/20/24 08:25 Dose: 0.5 mg Clonazepam (Clonazepam 1 Mg Tablet) 1 mg PO BID@0900,1300 [facility] Last Admin: 06/20/24 08:23 Dose: 1 mg Divalproex Sodium (Divalproex Sodium Er 250 Mg Tab.Er.24h) 750 mg PO BEDTIME [facility] Last Admin: 06/19/24 20:26 Dose: 750 mg Ezetimibe (Ezetimibe 10 Mg Tablet) 10 mg PO DAILY [facility] Last Admin: 06/20/24 08:26 Dose: 10 mg Famotidine (Famotidine 20 Mg Tablet) 20 mg PO DAILY [facility] Last Admin: 06/20/24 08:23 Dose: 20 mg Ferrous Sulfate (Ferrous Sulfate 324 Mg Tablet.) 324 mg PO DAILY [facility] Last Admin: 06/20/24 08:25 Dose: 324 mg Folic Acid (Folic Acid 1 Mg Tablet) 1 mg PO DAILY [facility] Last Admin: 06/20/24 08:26 Dose: 1 mg Hydroxyzine HCl (Hydroxyzine Hcl 25 Mg Tablet) 25 mg PO Q6H PRN PRN Reason: Anxiety Last Admin: 06/19/24 21:58 Dose: 25 mg Ibuprofen (Ibuprofen 600 Mg Tablet) 600 mg PO Q8H PRN PRN Reason: Pain, Mild (Pain Scale 1-3) Last Admin: 06/19/24 20:27 Dose: 600 mg Magnesium Hydroxide (Milk Of Magnesia 30 Ml Oral.Susp) 30 ml PO DAILY PRN PRN Reason: Constipation Last Admin: 07/26/24 09:33 Dose: 30 ml Metoprolol Succinate (Metoprolol Succinate Er 25 Mg Tab.Er.24h) 25 mg PO DAILY [facility]; Protocol Last Admin: 06/20/24 08:24 Dose: 25 mg Mirtazapine (Mirtazapine 30 Mg Tablet) 30 mg PO BEDTIME [facility] Last Admin: 06/19/24 20:26 Dose: 30 mg Nicotine Polacrilex (Nicotine Polacrilex 2 Mg Gum) 4 mg BUCCAL Q2H PRN PRN Reason: Nicotine Cravings Last Admin: 06/20/24 03:21 Dose: 4 mg Nicotine Polacrilex (Nicotine Polacrilex 2 Mg Gum) 4 mg BUCCAL Q2H PRN PRN Reason: Nicotine Cravings Last Admin: 06/05/24 21:42 Dose: 4 mg Olanzapine (Olanzapine 5 Mg Tablet) 5 mg PO TID PRN PRN Reason: psychosis, agitation Last Admin: 06/19/24 21:59 Dose: 5 mg Olanzapine (Olanzapine 7.5 Mg Tablet) 7.5 mg PO TID [facility] Last Admin: 06/20/24 08:24 Dose: 7.5 mg Omeprazole (Omeprazole 20 Mg Capsule.Dr) 20 mg PO DAILY@0630 [facility] Last Admin: 06/20/24 06:04 Dose: 20 mg Thiamine HCl (Thiamine Hcl 100 Mg Tablet) 100 mg PO DAILY [facility] Last Admin: 06/20/24 08:25 Dose: 100 mg Trazodone HCl (Trazodone Hcl 100 Mg Tablet) 100 mg PO BEDTIME [facility] Last Admin: 06/19/24 20:27 Dose: 100 mg Allergies Allergies Allergy/AdvReac Type Severity Reaction Status Date / Time acetaminophen Allergy Unknown PANADOL = Verified 06/02/24 16:01 ACETAMINOPHEN SHELLFISH Allergy Mild PATIENT Uncoded 06/02/24 16:01 REPORTS BURNING SENSATION THROUGHOUT OPIATES Allergy Unknown BECAME Uncoded 06/02/24 16:01 ADDICTED PANADOL Allergy Unknown UNKNOWN Uncoded 06/02/24 16:01 Assessment & Plan Assessment & Plan (1) Schizoaffective disorder: Qualifiers: Schizoaffective disorder type: unspecified Qualified Code(s): F25.9 - Schizoaffective disorder, unspecified Status: Acute Code(s): F25.9 - Schizoaffective disorder, unspecified (2) Intellectual delay: Status: Acute Code(s): F81.9 - Developmental disorder of scholastic skills, unspecified (3) CAD (coronary artery disease): Status: Acute Code(s): I25.10 - Atherosclerotic heart disease of [place] coronary artery without angina pectoris Plan Patient 59 yr old Hebrew-speaking male with schizoaffective disorder, cognitive delay, who lives with his mother, recently discharged from on 05/20/2024 who presents via family for increased paranoia, anger and confusion. At last admission there was the thought that patient was not taking all of his medications, since the bulk of his Risperdal was prescribed at bedtime and the [facility] only came in the morning. During this last admission, Risperdal changed so that he was taking the bulk of it in the morning and with VNA, seems he is taking his medications. Despite this, family reports that his behaviors are worsening. On the unit he is friendly and calm; he is confused saying he wants to go see his children, caring a pillow in his arms and calling it his baby. Formulation/clinical reasoning: It is not clear what is causing decline given that he is most likely taking his medications regularly. Some speculation that he might be abusing substance when out and about in neighborhood however UDS is negative. Setting up family meeting to discuss. Hospital course: 06/05 Patient denies any AH to parts data writer. Denies any SI or HI and says I never look for problems... I am never aggressive... I am good... Although he denies AH, patient says there is too much noise on the unit, and that people are touching his face. Earlier he had told another staff that he was having AH to hurt himself but that he was able to ignore. Patient denies any current drug use; he adds that he used to live on the streets but now he goes to [facility]. Toll Service Observer asked about why he had been carrying a pillow around calling it his baby; patient did not really answer but said that he has a son and a granddaughter and that his is . Patient said he wanted to go home but then agreed to wait for meeting with outpatient staff this next Saturday. -patient does seem more confused than he did at last admission. Will increase Risperdal 06/08 Patient remains disorganized, able to be goal-directed on some topics such as wanting is close but otherwise trying to enter in any open door he sees and needing frequent redirection. SW and parts data writer Discussed case with outpt team: Efraín Gray DDS Nimisha Glaser DDS Marlyn HOOVER CM No one is sure why patient has decompensated after decades of remaining stable on Risperdal. Says that for some reason this past month he has been more paranoid, more disorganized and when he returned from last admission he was not quite back to baseline. The past weeks patient was given away clothing on the street. This past admission was following patient argument with a neighbor. Apparently he had been peeking into this neighbor's window, scaring the neighbor and scared the neighbor's kids. They had a verbal altercation; staff arrived and patient kept saying he was going to go over to the neighbor's and take care of the neighbor... No actual threat was made and patient has no history of aggression but because of this he was taken to the hospital. Bret has discussed eviction of both patient and his elderly mother if behaviors continue. Team wondered if patient was not taking his medications however parts data writer explained that the bulk of his medications were switched so the VNA was giving him the 3 mg of Risperdal out of the 3.5 total daily dose making this less likely the issue. They say at baseline he paces and is anxious but he pretty much make sense and though he may say some delusional things his conversations are overall able to remain grounded in reality. Discussed various options including temporary housing and likelihood that patient will at some point in the near future need some type of group living arrangement as his mother is elderly and with some dementia Unclear why patient has decompensated; Increased Risperdal to see if that can help. Thus far no clear organic etiology; will get additional labs to trying rule out other possible causes, including HIV and RPR, magnesium, B12/folate; will likely get head CT, though anticipate that results will be unremarkable. UDS was negative and UA showed no bacterial growth. Will try to get more collateral from family 06/09 Patient remains confused and disorganized, jumping from topic to topic. He agrees to remain to have meeting on Saturday but otherwise says he is missing home. Patient denies any chest pain but passes hard to say that he has a heart condition and has a surgically implanted mesh. Patient starts to cry and says that people are laughing at him that he can hear them doing so; he also said that a staff person's came in to his room last night and choked. Patient started taking should often group today. Looking for any organic contribution to patient's decompensation, however: labs thus far unremarkable; magnesium/calcium WNL; electrolytes WNL Chest x-ray pending Repeat UA unremarkable; no evidence of UTI -Head CT however did show evidence of Mild underlying microangiopathy Which could indicate vascular dementia as a possible contribution, which does seem to worsen in a stepwise fashion Will continue with current medication regimen; if no improvement will consider switching to Zyprexa which is on the [facility] order. 06/11 Patient remains disorganized, delusional. Toll Service Observer another staff person saying it was his son; telling parts data writer he is going up by parts data writer a car, telling other staff members the same. Saying he has to go downstairs and feed the baby... Review of chart shows that patient has been getting Zyprexa p.r.n. consistently which seems to subdue patients agitation for a bit however but has thus far not helped resolve psychotic symptoms. -it is unlikely that is scheduling Zyprexa will make much difference says he has gotten significant doses over the past 5 days; will leave his p.r.n. for now; however will monitor how much antipsychotic patient is getting and lower p.r.n. availability to b.i.d.. -Reviewed recent EKG and QTc Int : 489 ms which is mildly prolonged; will monitor 06/07 total daily dose 5 mg 06/08 15 mg 06/09 10 mg 06/10 15 mg 06/11 5 mg 06/12 remains delusional, disorganized, intermittently intrusive with peers, sometimes a little aggressive with peers but remains redirectable. Considering maybe switching to Zyprexa since Risperdal isn't helping with psychosis and perhaps Zyprexa can subdue agitated behaviors -outpatient team came to visit and report patient is far from baseline at which he had been for a decade until about a month ago 06/13 Remains delusional, disorganized. A little more agitated and today went after peer (unprovoked) at the phone, then went after another peer. Staff able to redirect each time and pt willing to take medication. Will dc risperdal since not making any differnece will instead try zyprexa 5mg TID...as a prn, it's helped subdue agitated behavior, though has not yet reduced delusional thinking. 06/14 Last night patient continued to be aggressive towards peers, delusional; parts data writer on-call and discussed with nurse and gave Ativan 2 mg to see if that could subdue behaviors, trying to avoid giving more antipsychotic. However he remained intrusive and agitated towards peers, a little more difficult to redirect and so Thorazine 50 mg p.o. given. -Today, Patient less agitated and has not been aggressive towards peers; a little more calm and though he remains disorganized, delusional, a little easier to extract oneself conversation -typically patient is not aggressive towards peers and hopefully these behaviors will resolve with switch to Zyprexa; however he remains very intrusive, going into people's rooms, hanging up telephone calls, constantly asking nonsensical questions and he remains at risk for provoking peers. Will continue to monitor behaviors towards others and will strongly consider transferring patient to Geriatric unit for his own safety. Toll Service Observer was Considering that perhaps patient maybe having some manic behaviors and might benefit from Depakote however since there is some mild improvement will continue with Zyprexa t.i.d. dosing for now and monitor 06/15 Patient remains disorganized, intrusive and asks to go home. Patient agreed to sign 3 day notice. Collateral: Chris reports that about once a year, patient gets dysregulated for a few weeks to a month, goes to the hospital and then seems to go back to normal. He said it happened last summer around April or May during which time patient had similar behaviors. He was on his way to his day program but never made it, picked up by police disheveled, confused, no shoes, wet and disoriented. Was hospitalized. Chris reports that since then he has been back to his baseline until about a month ago. He reports that at the apartment he had a sudden change, disoriented, using bad words, saying bad things to the neighbors, giving way is close. Chris thinks that patient is getting a little better since this admission and it is overall less intense than last year. Shared some additional history, the patient was but no children; they years ago. Grew up going to a school for people with intellectual disability. 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 Did get involved in some drugs, cocaine and huffing on the streets in [place]; does not think much drug abuses happened here other than cannabis -Given collateral information delivery analyst again thinks that patient might benefit from Depakote since he he continues to have manic behaviors which per his brother, are episodic. 06/16 Starting Depakote; will continue with Zyprexa for now but will likely go back to Risperdal since it can be once a day dosing and seems to maintain patient for nearly a year in between manic episodes -discussed with patient need to remain on unit for medication, discussed diagnosis; patient continued to insist he wanted to go home and would not retract 3 day 06/17 continue tx. 3 day up tomorrow. 06/18 file for &06/19 continue tx. 06/20 continue tx PLAN: 3 day notice Guardian; pt has given permission to talk with his family 1:1 for accidental intrusiveness to others and needing to be redirected Start Depakote Ir 250mg one time START Depakote ER 500mg qhs continue Zyprexa 5mg TID consider Depakote if aggressive behaviors return DC risperidone (was on 3 mg b.i.d. up from home dose which was a total daily dose of 3.5mg)) Mirtazapine 30 mg PO BEDTIME [facility] Benztropine Mesylate 0.5 mg PO BID [facility] Clonazepam 0.5 mg PO BID [facility] Lower PRN Zyprexa 5mg to BID (Zyprexa seems to help subdue agitation but not resolve psychosis; will lower dose available given mild prolongation of QTC) Omeprazole 20 mg PO DAILY@0630 [facility] Albuterol Sulfate 2 puff INHALE Q4H PRN Amlodipine Besylate 2.5 mg PO DAILY [facility]; Protocol Artificial Tears 1 drop EYE-BOTH Q4H PRN Aspirin 81 mg PO DAILY [facility] Atorvastatin Calcium 40 mg PO BEDTIME [facility] Ezetimibe 10 mg PO DAILY [facility] Ferrous Sulfate 324 mg PO DAILY [facility] Folic Acid 1 mg PO DAILY [facility] Hydroxyzine HCl 25 mg PO Q6H PRN Metoprolol Succinate 25 mg PO DAILY [facility]; Protocol Thiamine HCl 100 mg PO DAILY [facility] Trazodone HCl 100 mg PO BEDTIME [facility] effective to March 26, 2025: Risperdal up to 10mg daily (primary) Geodon up to 60mg daily Zyprexa up to 25mg daily later in evening pt complained of right sided chest pain; vitals WNL and pt not in any distress but given hx for CAD ordered EKG and trop Reason for continued inpatient stay Substantial Risk for: inability to function Time Spent With Patient Time: Total time managing care of this patient today ____ minutes.
[2024-06-20] MEDS: Artificial Tears 15 ML DROPS 1 DROP EYE-BOTH (09:03)
[2024-06-20] MEDS: OLANZapine 5 MG TABLET PO (18:07)
[2024-06-20] MEDS: hydrOXYzine HCL 25 MG TABLET PO (18:07)
[2024-06-20] MEDS: Divalproex Sodium ER 250 MG TAB.ER.24H 750 MG PO (19:56)
[2024-06-20] MEDS: Ibuprofen 600 MG TABLET PO (19:58)
[2024-06-20] MEDS: Atorvastatin Calcium 40 MG TABLET PO (19:58)
[2024-06-20] MEDS: Mirtazapine 30 MG TABLET PO (19:59)
[2024-06-20] MEDS: traZODone HCL 100 MG TABLET PO (19:59)
[2024-06-20 20:00] VITALS: BP 118/69; PULSE 76; RESP 16; TEMP 36.1; O2SAT 96
[2024-06-20] MEDS: clonazePAM 1 MG TABLET 2 MG PO (20:19)
--- NOTE | 2024-06-20 23:07 | PC.NURSE ---
1999-pt awake/anxious/he has c/o of llq abdominal pain. he is asking for additional medication for restlessness. pt is entirely hebrew speaking and is in the company of pt observer. he appears to have delayed cognitive function. he is frequently observed carrying a doll and toy cat about the unit. pt has round/semi-firm abdomen and c/o of pain llq with palpation. he has no guarding or rebound tenderness pt denies nausea. no vomiting. pt states he had bm yesterday? information systems analyst provider contacted and notified of pts restlessness and anxiety. klonopin 2 mg po stat.
[2024-06-21 08:00] VITALS: BP 150/87; PULSE 83; RESP 17; TEMP 36.1; O2SAT 96
[2024-06-21] MEDS: Thiamine HCL 100 MG TABLET PO (09:10)
[2024-06-21] MEDS: amLODIPine Besylate 2.5 MG TABLET PO (09:10)
[2024-06-21] MEDS: Metoprolol Succinate ER 25 MG TAB.ER.24H PO (09:10)
[2024-06-21] MEDS: Famotidine 20 MG TABLET PO (09:10)
[2024-06-21] MEDS: OLANZapine 7.5 MG TABLET PO (09:11)
[2024-06-21] MEDS: Folic Acid 1 MG TABLET PO (09:11)
[2024-06-21] MEDS: Benztropine Mesylate 0.5 MG TABLET PO (09:11)
[2024-06-21] MEDS: Ezetimibe 10 MG TABLET PO (09:11)
[2024-06-21] MEDS: Aspirin Enteric Coated 81 MG TABLET.DR PO (09:11)
[2024-06-21] MEDS: Ferrous Sulfate 324 MG TABLET.DR PO (09:11)
[2024-06-21] MEDS: clonazePAM 1 MG TABLET PO ×3 (09:11→21:03)
[2024-06-21] MEDS: Ibuprofen 600 MG TABLET PO (09:58)
[2024-06-21] MEDS: Milk of Magnesia 30 ML ORAL.SUSP PO (12:16)
--- NOTE | 2024-06-21 16:55 | HO.PSYCHPN ---
Subjective Subjective Date of Service: 06/21/24 Reason For Visit: Dysregulated Subjective Notes: Section 7 Interim History: Pt had difficulty sleeping through the night. Last evening, intrusive with staff and peers and difficult to redirect. required additional dose of clonazepam at bedtime. He continues to believe that he knows people on the unit. Review of Systems Review of Systems Constitutional : No Weight loss, No Fever, No Chills, No Night Sweats, No Fatigue, No Malaise ENT/Mouth : No Hearing loss, No Ear Pain, No Nasal Congestion, No Sinus Pain, No Hoarseness, No sore throat, No Rhinorrhea, No Swallowing Difficulty Eyes: No Eye Pain, No Swelling, No Redness, No Foreign Body, No Discharge, No Vision Changes Cardiovascular : No Chest Pain, No SOB, No Dyspnea on Exertion, No Orthopnea, No Edema, No Palpitations Respiratory : No Cough, No Sputum, No Wheezing, No Smoke Exposure, No Dyspnea Gastrointestinal : No Nausea, No Vomiting, No Diarrhea, No Constipation, No abdominal Pain, No Hematochezia, No Melena Genitourinary : no irregular bleeding, No Dysuria, No Urinary Frequency, No Hematuria, No Urinary Incontinence, No Urgency, No Flank Pain, No Urinary Flow Changes, No Hesitancy Musculoskeletal : No joint pain, No Myalgias, No Joint Swelling Skin : No Skin Lesions, No rash Neuro : No Weakness, No Numbness, No Paresthesias, No Loss of Consciousness, No Dizziness, No Headache Psych : No Anxiety/Panic, No Depression, No SI/HI/AH/VH, No Social Issues, per family: Increased aggression and delusions Heme/Lymph: No Bruising, No Bleeding,No Lymphadenopathy Endocrine : No Polyuria, No Polydipsia, No Temperature Intolerance Yes Unobtainable due to mental status Mental Status Exam Mental Status Exam Narrative: Pt is alert and oriented to place, not situation; behavior is is mostly (overly) friendly however increasing restless, wandering, accidentally intrusive to peers, sometimes momentarily aggressive with peers, disorganized, typically able to be redirected. remains able to be easily redirected; patient is not in distress; dressed in hospital attire, scruffy with adequate hygiene; mood is described as good and but affect is constricted and patient sometimes tearful; eye contact appropriate; Speech is repetitive, a little pressured, normal volume and prosody; moderate psychomotor agitation present as he keeps pacing, trying to enter any open door; thought process can be goal directed, but mostly tangential and disorganized, perseverative; Thought content is on various things, mostly delusional thoughts; denies any SI/HI. Denies AVH; Patients insight and judgment impaired. Diagnostics Vital Signs (24Hr): Vital Signs - 24 hr 06/20/24 20:00 06/21/24 08:00 Temperature 97 F 96.9 F Pulse Rate 76 83 Respiratory Rate 16 17 Blood Pressure 118/69 150/87 H Pulse Oximetry 96 96 Oxygen Delivery Method Room Air Room Air BMI result Body Mass Index 30.7 Labs 06/02/24 16:41 06/03/24 13:51 Labs: Laboratory Results - last 48 hr 06/20/24 07:22 Total Bilirubin 0.2 Direct Bilirubin < 0.2 AST 23 ALT 28 Alkaline Phosphatase 88 Ammonia 72 H Total Protein 7.7 Albumin 4.1 Valproic Acid 65.0 Imaging Radiology Impressions: ITS Impressions Chest X-Ray 06/09/24 10:55 IMPRESSION: No acute process. Mild hyperinflation. Head CT 06/09/24 11:20 IMPRESSION: 1. No evidence of acute intracranial hemorrhage or edematous territorial infarction. 2. Mild underlying microangiopathy. Medications Medications Current Medications Al Hydroxide/Mg Hydroxide (Magnesium Hydrox/Alum Hydrox 30 Ml Oral.Susp) 30 ml PO Q6H PRN PRN Reason: Heartburn/Nausea Last Admin: 06/13/24 19:50 Dose: 30 ml Albuterol Sulfate (Albuterol Sulfate 90 Mcg 8 Gm Inhaler) 2 puff INHALE Q4H PRN PRN Reason: Wheezing Last Admin: 06/17/24 18:55 Dose: 2 puff Amlodipine Besylate (Amlodipine Besylate 2.5 Mg Tablet) 2.5 mg PO DAILY KAREN; Protocol Last Admin: 06/21/24 09:10 Dose: 2.5 mg Artificial Tears (Artificial Tears 15 Ml Drops) 1 drop EYE-BOTH Q4H PRN PRN Reason: Dry Eyes Last Admin: 06/20/24 09:03 Dose: 1 drop Aspirin (Aspirin Enteric Coated 81 Mg Tablet.) 81 mg PO DAILY KAREN Last Admin: 06/21/24 09:11 Dose: 81 mg Atorvastatin Calcium (Atorvastatin Calcium 40 Mg Tablet) 40 mg PO BEDTIME [facility] Last Admin: 06/20/24 19:58 Dose: 40 mg Benztropine Mesylate (Benztropine Mesylate 0.5 Mg Tablet) 0.5 mg PO BID [facility] Last Admin: 06/21/24 09:11 Dose: 0.5 mg Clonazepam (Clonazepam 1 Mg Tablet) 1 mg PO BID@0900,1300 [facility] Last Admin: 06/21/24 13:21 Dose: 1 mg Divalproex Sodium (Divalproex Sodium Er 250 Mg Tab.Er.24h) 750 mg PO BEDTIME [facility] Last Admin: 06/20/24 19:56 Dose: 750 mg Ezetimibe (Ezetimibe 10 Mg Tablet) 10 mg PO DAILY [facility] Last Admin: 06/21/24 09:11 Dose: 10 mg Famotidine (Famotidine 20 Mg Tablet) 20 mg PO DAILY [facility] Last Admin: 06/21/24 09:10 Dose: 20 mg Ferrous Sulfate (Ferrous Sulfate 324 Mg Tablet.Dr) 324 mg PO DAILY [facility] Last Admin: 06/21/24 09:11 Dose: 324 mg Folic Acid (Folic Acid 1 Mg Tablet) 1 mg PO DAILY [facility] Last Admin: 06/21/24 09:11 Dose: 1 mg Hydroxyzine HCl (Hydroxyzine Hcl 25 Mg Tablet) 25 mg PO Q6H PRN PRN Reason: Anxiety Last Admin: 06/20/24 18:07 Dose: 25 mg Ibuprofen (Ibuprofen 600 Mg Tablet) 600 mg PO Q8H PRN PRN Reason: Pain, Mild (Pain Scale 1-3) Last Admin: 06/21/24 09:58 Dose: 600 mg Magnesium Hydroxide (Milk Of Magnesia 30 Ml Oral.Susp) 30 ml PO DAILY PRN PRN Reason: Constipation Last Admin: 06/21/24 12:16 Dose: 30 ml Metoprolol Succinate (Metoprolol Succinate Er 25 Mg Tab.Er.24h) 25 mg PO DAILY [facility]; Protocol Last Admin: 06/21/24 09:10 Dose: 25 mg Mirtazapine (Mirtazapine 30 Mg Tablet) 30 mg PO BEDTIME [facility] Last Admin: 06/20/24 19:59 Dose: 30 mg Nicotine Polacrilex (Nicotine Polacrilex 2 Mg Gum) 4 mg BUCCAL Q2H PRN PRN Reason: Nicotine Cravings Last Admin: 06/20/24 20:01 Dose: 4 mg Nicotine Polacrilex (Nicotine Polacrilex 2 Mg Gum) 4 mg BUCCAL Q2H PRN PRN Reason: Nicotine Cravings Last Admin: 06/05/24 21:42 Dose: 4 mg Olanzapine (Olanzapine 5 Mg Tablet) 5 mg PO TID PRN PRN Reason: psychosis, agitation Last Admin: 06/20/24 18:07 Dose: 5 mg Olanzapine (Olanzapine 7.5 Mg Tablet) 7.5 mg PO TID [facility] Last Admin: 06/21/24 15:38 Dose: Not Given Omeprazole (Omeprazole 20 Mg Capsule.Dr) 20 mg PO DAILY@0630 [facility] Last Admin: 06/21/24 08:19 Dose: Not Given Thiamine HCl (Thiamine Hcl 100 Mg Tablet) 100 mg PO DAILY [facility] Last Admin: 06/21/24 09:10 Dose: 100 mg Trazodone HCl (Trazodone Hcl 100 Mg Tablet) 100 mg PO BEDTIME [facility] Last Admin: 06/20/24 19:59 Dose: 100 mg Allergies Allergies Allergy/AdvReac Type Severity Reaction Status Date / Time acetaminophen Allergy Unknown PANADOL = Verified 06/02/24 16:01 ACETAMINOPHEN SHELLFISH Allergy Mild PATIENT Uncoded 06/02/24 16:01 REPORTS BURNING SENSATION THROUGHOUT OPIATES Allergy Unknown BECAME Uncoded 06/02/24 16:01 ADDICTED PANADOL Allergy Unknown UNKNOWN Uncoded 06/02/24 16:01 Assessment & Plan Assessment & Plan (1) Schizoaffective disorder: Qualifiers: Schizoaffective disorder type: unspecified Qualified Code(s): F25.9 - Schizoaffective disorder, unspecified Status: Acute Code(s): F25.9 - Schizoaffective disorder, unspecified (2) Intellectual delay: Status: Acute Code(s): F81.9 - Developmental disorder of scholastic skills, unspecified (3) CAD (coronary artery disease): Status: Acute Code(s): I25.10 - Atherosclerotic heart disease of telida coronary artery without angina pectoris Plan Patient 59 yr old Northern Irish-speaking male with schizoaffective disorder, cognitive delay, who lives with his mother, recently discharged from on 05/20/2024 who presents via family for increased paranoia, anger and confusion. At last admission there was the thought that patient was not taking all of his medications, since the bulk of his Risperdal was prescribed at bedtime and the [facility] only came in the morning. During this last admission, Risperdal changed so that he was taking the bulk of it in the morning and with VNA, seems he is taking his medications. Despite this, family reports that his behaviors are worsening. On the unit he is friendly and calm; he is confused saying he wants to go see his children, caring a pillow in his arms and calling it his baby. Formulation/clinical reasoning: It is not clear what is causing decline given that he is most likely taking his medications regularly. Some speculation that he might be abusing substance when out and about in neighborhood however UDS is negative. Setting up family meeting to discuss. Hospital course: 06/05 Patient denies any AH to insurance writer. Denies any SI or HI and says I never look for problems... I am never aggressive... I am good... Although he denies AH, patient says there is too much noise on the unit, and that people are touching his face. Earlier he had told another staff that he was having AH to hurt himself but that he was able to ignore. Patient denies any current drug use; he adds that he used to live on the streets but now he goes to scientologist. [employer] asked about why he had been carrying a pillow around calling it his baby; patient did not really answer but said that he has a son and a granddaughter and that his is . Patient said he wanted to go home but then agreed to wait for meeting with outpatient staff this next Saturday. -patient does seem more confused than he did at last admission. Will increase Risperdal 06/08 Patient remains disorganized, able to be goal-directed on some topics such as wanting is close but otherwise trying to enter in any open door he sees and needing frequent redirection. SW and insurance writer Discussed case with outpt team: SHIMA Ruby DDS, CM No one is sure why patient has decompensated after decades of remaining stable on Risperdal. Says that for some reason this past month he has been more paranoid, more disorganized and when he returned from last admission he was not quite back to baseline. The past weeks patient was given away clothing on the street. This past admission was following patient argument with a neighbor. Apparently he had been peeking into this neighbor's window, scaring the neighbor and scared the neighbor's kids. They had a verbal altercation; staff arrived and patient kept saying he was going to go over to the neighbor's and take care of the neighbor... No actual threat was made and patient has no history of aggression but because of this he was taken to the hospital. Bret has discussed eviction of both patient and his elderly mother if behaviors continue. Team wondered if patient was not taking his medications however insurance writer explained that the bulk of his medications were switched so the VNA was giving him the 3 mg of Risperdal out of the 3.5 total daily dose making this less likely the issue. They say at baseline he paces and is anxious but he pretty much make sense and though he may say some delusional things his conversations are overall able to remain grounded in reality. Discussed various options including temporary housing and likelihood that patient will at some point in the near future need some type of group living arrangement as his mother is elderly and with some dementia Unclear why patient has decompensated; Increased Risperdal to see if that can help. Thus far no clear organic etiology; will get additional labs to trying rule out other possible causes, including HIV and RPR, magnesium, B12/folate; will likely get head CT, though anticipate that results will be unremarkable. UDS was negative and UA showed no bacterial growth. Will try to get more collateral from family 06/09 Patient remains confused and disorganized, jumping from topic to topic. He agrees to remain to have meeting on Saturday but otherwise says he is missing home. Patient denies any chest pain but passes hard to say that he has a heart condition and has a surgically implanted mesh. Patient starts to cry and says that people are laughing at him that he can hear them doing so; he also said that a staff person's came in to his room last night and choked. Patient started taking should often group today. Looking for any organic contribution to patient's decompensation, however: labs thus far unremarkable; magnesium/calcium WNL; electrolytes WNL Chest x-ray pending Repeat UA unremarkable; no evidence of UTI -Head CT however did show evidence of Mild underlying microangiopathy Which could indicate vascular dementia as a possible contribution, which does seem to worsen in a stepwise fashion Will continue with current medication regimen; if no improvement will consider switching to Zyprexa which is on the [facility] order. 06/11 Patient remains disorganized, delusional. [employer] another staff person saying it was his son; telling insurance writer he is going up by insurance writer a car, telling other staff members the same. Saying he has to go downstairs and feed the baby... Review of chart shows that patient has been getting Zyprexa p.r.n. consistently which seems to subdue patients agitation for a bit however but has thus far not helped resolve psychotic symptoms. -it is unlikely that is scheduling Zyprexa will make much difference says he has gotten significant doses over the past 5 days; will leave his p.r.n. for now; however will monitor how much antipsychotic patient is getting and lower p.r.n. availability to b.i.d.. -Reviewed recent EKG and QTc Int : 489 ms which is mildly prolonged; will monitor 06/07 total daily dose 5 mg 06/08 15 mg 06/09 10 mg 06/10 15 mg 06/11 5 mg 06/12 remains delusional, disorganized, intermittently intrusive with peers, sometimes a little aggressive with peers but remains redirectable. Considering maybe switching to Zyprexa since Risperdal isn't helping with psychosis and perhaps Zyprexa can subdue agitated behaviors -outpatient team came to visit and report patient is far from baseline at which he had been for a decade until about a month ago 06/13 Remains delusional, disorganized. A little more agitated and today went after peer (unprovoked) at the phone, then went after another peer. Staff able to redirect each time and pt willing to take medication. Will dc risperdal since not making any differnece will instead try zyprexa 5mg TID...as a prn, it's helped subdue agitated behavior, though has not yet reduced delusional thinking. 06/14 Last night patient continued to be aggressive towards peers, delusional; insurance writer on-call and discussed with nurse and gave Ativan 2 mg to see if that could subdue behaviors, trying to avoid giving more antipsychotic. However he remained intrusive and agitated towards peers, a little more difficult to redirect and so Thorazine 50 mg p.o. given. -Today, Patient less agitated and has not been aggressive towards peers; a little more calm and though he remains disorganized, delusional, a little easier to extract oneself conversation -typically patient is not aggressive towards peers and hopefully these behaviors will resolve with switch to Zyprexa; however he remains very intrusive, going into people's rooms, hanging up telephone calls, constantly asking nonsensical questions and he remains at risk for provoking peers. Will continue to monitor behaviors towards others and will strongly consider transferring patient to Geriatric unit for his own safety. [employer] was Considering that perhaps patient maybe having some manic behaviors and might benefit from Depakote however since there is some mild improvement will continue with Zyprexa t.i.d. dosing for now and monitor 06/15 Patient remains disorganized, intrusive and asks to go home. Patient agreed to sign 3 day notice. Collateral: Chris reports that about once a year, patient gets dysregulated for a few weeks to a month, goes to the hospital and then seems to go back to normal. He said it happened last summer around April or May during which time patient had similar behaviors. He was on his way to his day program but never made it, picked up by police disheveled, confused, no shoes, wet and disoriented. Was hospitalized. Chris reports that since then he has been back to his baseline until about a month ago. He reports that at the apartment he had a sudden change, disoriented, using bad words, saying bad things to the neighbors, giving way is close. Chris thinks that patient is getting a little better since this admission and it is overall less intense than last year. Shared some additional history, the patient was but no children; they years ago. Grew up going to a school for people with intellectual disability. 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 Did get involved in some drugs, cocaine and huffing on the streets in [place]; does not think much drug abuses happened here other than cannabis -Given collateral information technology architect again thinks that patient might benefit from Depakote since he he continues to have manic behaviors which per his brother, are episodic. 06/16 Starting Depakote; will continue with Zyprexa for now but will likely go back to Risperdal since it can be once a day dosing and seems to maintain patient for nearly a year in between manic episodes -discussed with patient need to remain on unit for medication, discussed diagnosis; patient continued to insist he wanted to go home and would not retract 3 day 06/17 continue tx. 3 day up tomorrow. 06/18 file for &06/19 continue tx. 06/20 ammonia high. will start lactulose and dc depakote. will switch back to risperidone with prn olanzapine. pending collateral from family. 06/21 continue tx. PLAN: 3 day notice Guardian; pt has given permission to talk with his family 1:1 for accidental intrusiveness to others and needing to be redirected Start Depakote Ir 250mg one time START Depakote ER 500mg qhs continue Zyprexa 5mg TID consider Depakote if aggressive behaviors return DC risperidone (was on 3 mg b.i.d. up from home dose which was a total daily dose of 3.5mg)) Mirtazapine 30 mg PO BEDTIME KAREN Benztropine Mesylate 0.5 mg PO BID KAREN Clonazepam 0.5 mg PO BID KAREN Lower PRN Zyprexa 5mg to BID (Zyprexa seems to help subdue agitation but not resolve psychosis; will lower dose available given mild prolongation of QTC) Omeprazole 20 mg PO DAILY@0630 [facility] Albuterol Sulfate 2 puff INHALE Q4H PRN Amlodipine Besylate 2.5 mg PO DAILY [facility]; Protocol Artificial Tears 1 drop EYE-BOTH Q4H PRN Aspirin 81 mg PO DAILY [facility] Atorvastatin Calcium 40 mg PO BEDTIME [facility] Ezetimibe 10 mg PO DAILY [facility] Ferrous Sulfate 324 mg PO DAILY [facility] Folic Acid 1 mg PO DAILY [facility] Hydroxyzine HCl 25 mg PO Q6H PRN Metoprolol Succinate 25 mg PO DAILY [facility]; Protocol Thiamine HCl 100 mg PO DAILY [facility] Trazodone HCl 100 mg PO BEDTIME [facility] effective to March 26, 2025: Risperdal up to 10mg daily (primary) Geodon up to 60mg daily Zyprexa up to 25mg daily later in evening pt complained of right sided chest pain; vitals WNL and pt not in any distress but given hx for CAD ordered EKG and trop Reason for continued inpatient stay Substantial Risk for: inability to function Time Spent With Patient Time: Total time managing care of this patient today ____ minutes.
[2024-06-21] MEDS: hydrOXYzine HCL 25 MG TABLET PO (18:08)
[2024-06-21] MEDS: OLANZapine 5 MG TABLET PO (18:08)
[2024-06-21] MEDS: Lactulose 20 GM/30 ML SOLUTION PO ×2 (18:29→21:03)
[2024-06-21] MEDS: OLANZapine 10 MG TABLET PO (19:01)
[2024-06-21 20:00] VITALS: BP 119/80; PULSE 83; RESP 18; TEMP 36.4; O2SAT 95
[2024-06-21] MEDS: Atorvastatin Calcium 40 MG TABLET PO (21:02)
[2024-06-21] MEDS: risperiDONE 1 MG TABLET PO (21:03)
[2024-06-21] MEDS: traZODone HCL 100 MG TABLET PO (21:04)
[2024-06-21] MEDS: Albuterol Sulfate 90 MCG 8 GM INHALER 2 PUFF INHALE (21:10)
[2024-06-22] MEDS: HaloperidoL 1 MG TABLET 2 MG PO (01:51)
[2024-06-22] MEDS: LORazepam 1 MG TABLET 2 MG PO (01:52)
[2024-06-22] MEDS: Omeprazole 20 MG CAPSULE.DR PO (05:43)
[2024-06-22] MEDS: Ibuprofen 600 MG TABLET PO (06:25)
[2024-06-22 08:00] VITALS: BP 140/76; PULSE 78; RESP 18; TEMP 36.2; O2SAT 97
[2024-06-22 08:26] LABS: Ammonia 35 umol/L (13-55)
[2024-06-22] MEDS: risperiDONE 1 MG TABLET PO (08:43)
[2024-06-22 08:44] VITALS: BP 140/76; PULSE 78
[2024-06-22] MEDS: Aspirin Enteric Coated 81 MG TABLET.DR PO (08:44)
[2024-06-22] MEDS: clonazePAM 1 MG TABLET PO ×2 (08:44→20:24)
[2024-06-22] MEDS: Ezetimibe 10 MG TABLET PO (08:44)
[2024-06-22] MEDS: Thiamine HCL 100 MG TABLET PO (08:44)
[2024-06-22] MEDS: amLODIPine Besylate 2.5 MG TABLET PO (08:44)
[2024-06-22] MEDS: Famotidine 20 MG TABLET PO (08:44)
[2024-06-22] MEDS: Metoprolol Succinate ER 25 MG TAB.ER.24H PO (08:44)
[2024-06-22] MEDS: Folic Acid 1 MG TABLET PO (08:44)
[2024-06-22] MEDS: Ferrous Sulfate 324 MG TABLET.DR PO (08:44)
[2024-06-22] MEDS: Lactulose 20 GM/30 ML SOLUTION PO ×2 (08:47→20:24)
--- NOTE | 2024-06-22 09:53 | P.PNPSI_ITS ---
Subjective Subjective Date of Service: 06/22/24 Reason For Visit: Dysregulated Subjective Notes: Section 7 Interim History: Pt again had difficulty sleeping through the night. Last evening, intrusive with staff and peers and difficult to redirect. required additional dose of clonazepam at bedtime. He continues to believe that he knows people on the unit. He is intrusive, needs redirection. Taking medications for the most part. Review of Systems Review of Systems Constitutional : No Weight loss, No Fever, No Chills, No Night Sweats, No Fatigue, No Malaise ENT/Mouth : No Hearing loss, No Ear Pain, No Nasal Congestion, No Sinus Pain, No Hoarseness, No sore throat, No Rhinorrhea, No Swallowing Difficulty Eyes: No Eye Pain, No Swelling, No Redness, No Foreign Body, No Discharge, No Vision Changes Cardiovascular : No Chest Pain, No SOB, No Dyspnea on Exertion, No Orthopnea, No Edema, No Palpitations Respiratory : No Cough, No Sputum, No Wheezing, No Smoke Exposure, No Dyspnea Gastrointestinal : No Nausea, No Vomiting, No Diarrhea, No Constipation, No abdominal Pain, No Hematochezia, No Melena Genitourinary : no irregular bleeding, No Dysuria, No Urinary Frequency, No Hematuria, No Urinary Incontinence, No Urgency, No Flank Pain, No Urinary Flow Changes, No Hesitancy Musculoskeletal : No joint pain, No Myalgias, No Joint Swelling Skin : No Skin Lesions, No rash Neuro : No Weakness, No Numbness, No Paresthesias, No Loss of Consciousness, No Dizziness, No Headache Psych : No Anxiety/Panic, No Depression, No SI/HI/AH/VH, No Social Issues, per family: Increased aggression and delusions Heme/Lymph: No Bruising, No Bleeding,No Lymphadenopathy Endocrine : No Polyuria, No Polydipsia, No Temperature Intolerance Yes Unobtainable due to mental status Mental Status Exam Mental Status Exam Narrative: Pt is alert and oriented to place, not situation; behavior is is mostly (overly) friendly however increasing restless, wandering, accidentally intrusive to peers, sometimes momentarily aggressive with peers, disorganized, typically able to be redirected. remains able to be easily redirected; patient is not in distress; dressed in hospital attire, scruffy with adequate hygiene; mood is described as good and but affect is constricted and patient sometimes tearful; eye contact appropriate; Speech is repetitive, a little pressured, normal volume and prosody; moderate psychomotor agitation present as he keeps pacing, trying to enter any open door; thought process can be goal directed, but mostly tangential and disorganized, perseverative; Thought content is on various things, mostly delusional thoughts; denies any SI/HI. Denies AVH; Patients insight and judgment impaired. Patient Appearance: Appropriate Patient Orientation: Person and Place Level of Consciousness: Restless and Alert Patient Behavior: Talkative, Suspicious, Restless, Wandering, Anxious, Fearful, Resistive to Care, Distractible and Good Eye Contact Mood Description: Anxious and Apprehensive Affect Description: Anxious and Apprehensive Patient Cognition Impaired: Yes Ability to Follow Directions: Fair Speech Pattern: Perseverating and Spontaneous Speech Memory Description: Remote Impaired and Episodic Impaired Diagnostics Vital Signs (24Hr): Vital Signs - 24 hr 06/21/24 20:00 06/22/24 08:00 06/22/24 08:44 Temperature 97.6 F 97.2 F Pulse Rate 83 78 Respiratory Rate 18 18 Blood Pressure 119/80 140/76 H 140/76 H Pulse Oximetry 95 97 Oxygen Delivery Method Room Air Room Air 06/22/24 08:44 Temperature Pulse Rate 78 Respiratory Rate Blood Pressure 140/76 H Pulse Oximetry Oxygen Delivery Method BMI result Body Mass Index 30.7 Labs 06/02/24 16:41 06/03/24 13:51 Labs: Laboratory Results - last 48 hr 06/22/24 08:05 Ammonia 35 Imaging Radiology Impressions: ITS Impressions Chest X-Ray 06/09/24 10:55 IMPRESSION: No acute process. Mild hyperinflation. Head CT 06/09/24 11:20 IMPRESSION: 1. No evidence of acute intracranial hemorrhage or edematous territorial infarction. 2. Mild underlying microangiopathy. Medications Medications Current Medications Al Hydroxide/Mg Hydroxide (Magnesium Hydrox/Alum Hydrox 30 Ml Oral.Susp) 30 ml PO Q6H PRN PRN Reason: Heartburn/Nausea Last Admin: 06/13/24 19:50 Dose: 30 ml Albuterol Sulfate (Albuterol Sulfate 90 Mcg 8 Gm Inhaler) 2 puff INHALE Q4H PRN PRN Reason: Wheezing Last Admin: 06/21/24 21:10 Dose: 2 puff Amlodipine Besylate (Amlodipine Besylate 2.5 Mg Tablet) 2.5 mg PO DAILY [facility]; Protocol Last Admin: 06/22/24 08:44 Dose: 2.5 mg Artificial Tears (Artificial Tears 15 Ml Drops) 1 drop EYE-BOTH Q4H PRN PRN Reason: Dry Eyes Last Admin: 06/20/24 09:03 Dose: 1 drop Aspirin (Aspirin Enteric Coated 81 Mg Tablet.) 81 mg PO DAILY [facility] Last Admin: 06/22/24 08:44 Dose: 81 mg Atorvastatin Calcium (Atorvastatin Calcium 40 Mg Tablet) 40 mg PO BEDTIME [facility] Last Admin: 06/21/24 21:02 Dose: 40 mg Clonazepam (Clonazepam 1 Mg Tablet) 1 mg PO BID [facility] Last Admin: 06/22/24 08:44 Dose: 1 mg Ezetimibe (Ezetimibe 10 Mg Tablet) 10 mg PO DAILY [facility] Last Admin: 06/22/24 08:44 Dose: 10 mg Famotidine (Famotidine 20 Mg Tablet) 20 mg PO DAILY [facility] Last Admin: 06/22/24 08:44 Dose: 20 mg Ferrous Sulfate (Ferrous Sulfate 324 Mg Tablet.) 324 mg PO DAILY [facility] Last Admin: 06/22/24 08:44 Dose: 324 mg Folic Acid (Folic Acid 1 Mg Tablet) 1 mg PO DAILY [facility] Last Admin: 06/22/24 08:44 Dose: 1 mg Hydroxyzine HCl (Hydroxyzine Hcl 25 Mg Tablet) 25 mg PO Q6H PRN PRN Reason: Anxiety Last Admin: 06/21/24 18:08 Dose: 25 mg Ibuprofen (Ibuprofen 400 Mg Tablet) 400 mg PO Q6H PRN PRN Reason: Pain, Moderate(Pain Scale 4-6) Lactulose (Lactulose 20 Gm/30 Ml Solution) 20 gm PO BID [facility] Last Admin: 06/22/24 08:47 Dose: 20 gm Magnesium Hydroxide (Milk Of Magnesia 30 Ml Oral.Susp) 30 ml PO DAILY PRN PRN Reason: Constipation Last Admin: 06/21/24 12:16 Dose: 30 ml Metoprolol Succinate (Metoprolol Succinate Er 25 Mg Tab.Er.24h) 25 mg PO DAILY [facility]; Protocol Last Admin: 06/22/24 08:44 Dose: 25 mg Nicotine Polacrilex (Nicotine Polacrilex 2 Mg Gum) 4 mg BUCCAL Q2H PRN PRN Reason: Nicotine Cravings Last Admin: 06/20/24 20:01 Dose: 4 mg Nicotine Polacrilex (Nicotine Polacrilex 2 Mg Gum) 4 mg BUCCAL Q2H PRN PRN Reason: Nicotine Cravings Last Admin: 06/05/24 21:42 Dose: 4 mg Olanzapine (Olanzapine 10 Mg Tablet) 10 mg PO Q6H PRN PRN Reason: psychosis, agitation Last Admin: 06/21/24 19:01 Dose: 10 mg Omeprazole (Omeprazole 20 Mg Capsule.Dr) 20 mg PO DAILY@0630 [facility] Last Admin: 06/22/24 05:43 Dose: 20 mg Risperidone (Risperidone 1 Mg Tablet) 1 mg PO TID [facility] Last Admin: 06/22/24 08:43 Dose: 1 mg Thiamine HCl (Thiamine Hcl 100 Mg Tablet) 100 mg PO DAILY [facility] Last Admin: 06/22/24 08:44 Dose: 100 mg Trazodone HCl (Trazodone Hcl 100 Mg Tablet) 100 mg PO BEDTIME [facility] Last Admin: 06/21/24 21:04 Dose: 100 mg Allergies Allergies Allergy/AdvReac Type Severity Reaction Status Date / Time acetaminophen Allergy Unknown PANADOL = Verified 06/02/24 16:01 ACETAMINOPHEN SHELLFISH Allergy Mild PATIENT Uncoded 06/02/24 16:01 REPORTS BURNING SENSATION THROUGHOUT OPIATES Allergy Unknown BECAME Uncoded 06/02/24 16:01 ADDICTED PANADOL Allergy Unknown UNKNOWN Uncoded 06/02/24 16:01 Assessment & Plan Assessment & Plan (1) Schizoaffective disorder: Qualifiers: Schizoaffective disorder type: unspecified Qualified Code(s): F25.9 - Schizoaffective disorder, unspecified Status: Acute Code(s): F25.9 - Schizoaffective disorder, unspecified (2) Intellectual delay: Status: Acute Code(s): F81.9 - Developmental disorder of scholastic skills, unspecified (3) CAD (coronary artery disease): Status: Acute Code(s): I25.10 - Atherosclerotic heart disease of jamul coronary artery without angina pectoris Plan Patient 59 yr old Occitan-speaking male with schizoaffective disorder, cognitive delay, who lives with his mother, recently discharged from on 05/20/2024 who presents via family for increased paranoia, anger and confusion. At last admission there was the thought that patient was not taking all of his medications, since the bulk of his Risperdal was prescribed at bedtime and the [facility] only came in the morning. During this last admission, Risperdal changed so that he was taking the bulk of it in the morning and with VNA, seems he is taking his medications. Despite this, family reports that his behaviors are worsening. On the unit he is friendly and calm; he is confused saying he wants to go see his children, caring a pillow in his arms and calling it his baby. Formulation/clinical reasoning: It is not clear what is causing decline given that he is most likely taking his medications regularly. Some speculation that he might be abusing substance when out and about in neighborhood however UDS is negative. Setting up family meeting to discuss. Hospital course: 06/05 Patient denies any AH to check writer. Denies any SI or HI and says I never look for problems... I am never aggressive... I am good... Although he denies AH, patient says there is too much noise on the unit, and that people are touching his face. Earlier he had told another staff that he was having AH to hurt himself but that he was able to ignore. Patient denies any current drug use; he adds that he used to live on the streets but now he goes to [employer]. Hot Die Picker asked about why he had been carrying a pillow around calling it his baby; patient did not really answer but said that he has a son and a granddaughter and that his is . Patient said he wanted to go home but then agreed to wait for meeting with outpatient staff this next Saturday. -patient does seem more confused than he did at last admission. Will increase Risperdal 06/08 Patient remains disorganized, able to be goal-directed on some topics such as wanting is close but otherwise trying to enter in any open door he sees and needing frequent redirection. SW and check writer Discussed case with outpt team: SHIMA Ruby DDS Marlyn HOOVER No one is sure why patient has decompensated after decades of remaining stable on Risperdal. Says that for some reason this past month he has been more paranoid, more disorganized and when he returned from last admission he was not quite back to baseline. The past weeks patient was given away clothing on the street. This past admission was following patient argument with a neighbor. Apparently he had been peeking into this neighbor's window, scaring the neighbor and scared the neighbor's kids. They had a verbal altercation; staff arrived and patient kept saying he was going to go over to the neighbor's and take care of the neighbor... No actual threat was made and patient has no history of aggression but because of this he was taken to the hospital. Bret has discussed eviction of both patient and his elderly mother if behaviors continue. Team wondered if patient was not taking his medications however check writer explained that the bulk of his medications were switched so the [facility]NA was giving him the 3 mg of Risperdal out of the 3.5 total daily dose making this less likely the issue. They say at baseline he paces and is anxious but he pretty much make sense and though he may say some delusional things his conversations are overall able to remain grounded in reality. Discussed various options including temporary housing and likelihood that patient will at some point in the near future need some type of group living arrangement as his mother is elderly and with some dementia Unclear why patient has decompensated; Increased Risperdal to see if that can help. Thus far no clear organic etiology; will get additional labs to trying rule out other possible causes, including HIV and RPR, magnesium, B12/folate; will likely get head CT, though anticipate that results will be unremarkable. UDS was negative and UA showed no bacterial growth. Will try to get more collateral from family 06/09 Patient remains confused and disorganized, jumping from topic to topic. He agrees to remain to have meeting on Saturday but otherwise says he is missing home. Patient denies any chest pain but passes hard to say that he has a heart condition and has a surgically implanted mesh. Patient starts to cry and says that people are laughing at him that he can hear them doing so; he also said that a staff person's came in to his room last night and choked. Patient started taking should often group today. Looking for any organic contribution to patient's decompensation, however: labs thus far unremarkable; magnesium/calcium WNL; electrolytes WNL Chest x-ray pending Repeat UA unremarkable; no evidence of UTI -Head CT however did show evidence of Mild underlying microangiopathy Which could indicate vascular dementia as a possible contribution, which does seem to worsen in a stepwise fashion Will continue with current medication regimen; if no improvement will consider switching to Zyprexa which is on the [facility] order. 06/11 Patient remains disorganized, delusional. Hot Die Picker another staff person saying it was his son; telling check writer he is going up by check writer a car, telling other staff members the same. Saying he has to go downstairs and feed the baby... Review of chart shows that patient has been getting Zyprexa p.r.n. consistently which seems to subdue patients agitation for a bit however but has thus far not helped resolve psychotic symptoms. -it is unlikely that is scheduling Zyprexa will make much difference says he has gotten significant doses over the past 5 days; will leave his p.r.n. for now; however will monitor how much antipsychotic patient is getting and lower p.r.n. availability to b.i.d.. -Reviewed recent EKG and QTc Int : 489 ms which is mildly prolonged; will monitor 06/07 total daily dose 5 mg 06/08 15 mg 06/09 10 mg 06/10 15 mg 06/11 5 mg 06/12 remains delusional, disorganized, intermittently intrusive with peers, sometimes a little aggressive with peers but remains redirectable. Considering maybe switching to Zyprexa since Risperdal isn't helping with psychosis and perhaps Zyprexa can subdue agitated behaviors -outpatient team came to visit and report patient is far from baseline at which he had been for a decade until about a month ago 06/13 Remains delusional, disorganized. A little more agitated and today went after peer (unprovoked) at the phone, then went after another peer. Staff able to redirect each time and pt willing to take medication. Will dc risperdal since not making any differnece will instead try zyprexa 5mg TID...as a prn, it's helped subdue agitated behavior, though has not yet reduced delusional thinking. 06/14 Last night patient continued to be aggressive towards peers, delusional; check writer on-call and discussed with nurse and gave Ativan 2 mg to see if that could subdue behaviors, trying to avoid giving more antipsychotic. However he remained intrusive and agitated towards peers, a little more difficult to redirect and so Thorazine 50 mg p.o. given. -Today, Patient less agitated and has not been aggressive towards peers; a little more calm and though he remains disorganized, delusional, a little easier to extract oneself conversation -typically patient is not aggressive towards peers and hopefully these behaviors will resolve with switch to Zyprexa; however he remains very intrusive, going into people's rooms, hanging up telephone calls, constantly asking nonsensical questions and he remains at risk for provoking peers. Will continue to monitor behaviors towards others and will strongly consider transferring patient to Geriatric unit for his own safety. Hot Die Picker was Considering that perhaps patient maybe having some manic behaviors and might benefit from Depakote however since there is some mild improvement will continue with Zyprexa t.i.d. dosing for now and monitor 06/15 Patient remains disorganized, intrusive and asks to go home. Patient agreed to sign 3 day notice. Collateral: Chris reports that about once a year, patient gets dysregulated for a few weeks to a month, goes to the hospital and then seems to go back to normal. He said it happened last summer around April or May during which time patient had similar behaviors. He was on his way to his day program but never made it, picked up by police disheveled, confused, no shoes, wet and disoriented. Was hospitalized. Chris reports that since then he has been back to his baseline until about a month ago. He reports that at the apartment he had a sudden change, disoriented, using bad words, saying bad things to the neighbors, giving way is close. Chris thinks that patient is getting a little better since this admission and it is overall less intense than last year. Shared some additional history, the patient was but no children; they years ago. Grew up going to a school for people with intellectual disability. 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 Did get involved in some drugs, cocaine and huffing on the streets in [place]; does not think much drug abuses happened here other than cannabis -Given collateral supervisor telephone information again thinks that patient might benefit from Depakote since he he continues to have manic behaviors which per his brother, are episodic. 06/16 Starting Depakote; will continue with Zyprexa for now but will likely go back to Risperdal since it can be once a day dosing and seems to maintain patient for nearly a year in between manic episodes -discussed with patient need to remain on unit for medication, discussed diagnosis; patient continued to insist he wanted to go home and would not retract 3 day 06/17 continue tx. 3 day up tomorrow. 06/18 file for &06/19 continue tx. 06/20 ammonia high. will start lactulose and dc depakote. will switch back to risperidone with prn olanzapine. pending collateral from family. 06/21 continue tx. 06/22 ammonia back to normal. increase risperidone 2mg po TID. poor sleep. PLAN: 3 day notice Guardian; pt has given permission to talk with his family 1:1 for accidental intrusiveness to others and needing to be redirected Start Depakote Ir 250mg one time START Depakote ER 500mg qhs continue Zyprexa 5mg TID consider Depakote if aggressive behaviors return DC risperidone (was on 3 mg b.i.d. up from home dose which was a total daily dose of 3.5mg)) Mirtazapine 30 mg PO BEDTIME [facility] Benztropine Mesylate 0.5 mg PO BID [facility] Clonazepam 0.5 mg PO BID [facility] Lower PRN Zyprexa 5mg to BID (Zyprexa seems to help subdue agitation but not resolve psychosis; will lower dose available given mild prolongation of QTC) Omeprazole 20 mg PO DAILY@0630 [facility] Albuterol Sulfate 2 puff INHALE Q4H PRN Amlodipine Besylate 2.5 mg PO DAILY [facility]; Protocol Artificial Tears 1 drop EYE-BOTH Q4H PRN Aspirin 81 mg PO DAILY [facility] Atorvastatin Calcium 40 mg PO BEDTIME [facility] Ezetimibe 10 mg PO DAILY [facility] Ferrous Sulfate 324 mg PO DAILY [facility] Folic Acid 1 mg PO DAILY [facility] Hydroxyzine HCl 25 mg PO Q6H PRN Metoprolol Succinate 25 mg PO DAILY [facility]; Protocol Thiamine HCl 100 mg PO DAILY [facility] Trazodone HCl 100 mg PO BEDTIME [facility] effective to March 26, 2025: Risperdal up to 10mg daily (primary) Geodon up to 60mg daily Zyprexa up to 25mg daily later in evening pt complained of right sided chest pain; vitals WNL and pt not in any distress but given hx for CAD ordered EKG and trop Reason for continued inpatient stay Substantial Risk for: inability to function Time Spent With Patient Time: Total time managing care of this patient today ____ minutes.
[2024-06-22] MEDS: Artificial Tears 15 ML DROPS 1 DROP EYE-BOTH ×2 (14:17→20:24)
[2024-06-22] MEDS: risperiDONE 2 MG TABLET PO ×2 (14:19→20:24)
[2024-06-22 20:00] VITALS: BP 122/71; PULSE 87; RESP 16; TEMP 36.6; O2SAT 97
[2024-06-22] MEDS: Atorvastatin Calcium 40 MG TABLET PO (20:24)
[2024-06-22] MEDS: traZODone HCL 100 MG TABLET PO (20:24)
[2024-06-22] MEDS: OLANZapine 10 MG TABLET PO (22:57)
[2024-06-22] MEDS: hydrOXYzine HCL 25 MG TABLET PO (22:57)
--- NOTE | 2024-06-23 | ECG_ITS ---
Test Reason : pt reports heart pain, hurts to breathe Blood Pressure : / mmHG Vent. 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
--- NOTE | 2024-06-23 02:01 | PC.NURSE ---
At approx 0115, patient's 1:1 observed alerted this RN that patient was complaining of his heart hurting. Patient reports pain when breathing in and out, unable to elaborate about radiation of pain. Upon assessment, patient found laying in bed, groaning, grasping his chest. Vital signs obtained. T:97.8 HR: 67 BP: 115/58 O2: 97% RR:18. Provider care coordination manager notified. EKG obtained. CXR obtained. Patient swabbed for SARS/COV2/Flu. Results pending. Patient is resting in bed at this time, continuously calling out for his mother.
[2024-06-23 02:51] LABS: Influenza A PCR NEGATIVE (Negative); Influenza B PCR NEGATIVE (Negative); Resp Syncy Virus RNA Qual PCR NEGATIVE (Negative); SARS COV2 PCR INHOUSE NEGATIVE (Negative)
[2024-06-23] MEDS: Omeprazole 20 MG CAPSULE.DR PO (05:43)
[2024-06-23 08:07] VITALS: BP 130/68; PULSE 82; RESP 18; TEMP 36.1; O2SAT 97
[2024-06-23] MEDS: Thiamine HCL 100 MG TABLET PO (09:02)
[2024-06-23] MEDS: Ferrous Sulfate 324 MG TABLET.DR PO (09:02)
[2024-06-23] MEDS: amLODIPine Besylate 2.5 MG TABLET PO (09:02)
[2024-06-23] MEDS: Aspirin Enteric Coated 81 MG TABLET.DR PO (09:03)
[2024-06-23] MEDS: risperiDONE 2 MG TABLET PO ×3 (09:03→20:53)
[2024-06-23] MEDS: clonazePAM 1 MG TABLET PO ×2 (09:04→20:54)
[2024-06-23] MEDS: Metoprolol Succinate ER 25 MG TAB.ER.24H PO (09:04)
[2024-06-23] MEDS: Folic Acid 1 MG TABLET PO (09:04)
[2024-06-23] MEDS: Famotidine 20 MG TABLET PO (09:04)
[2024-06-23] MEDS: Lactulose 20 GM/30 ML SOLUTION PO (09:05)
[2024-06-23] MEDS: Ezetimibe 10 MG TABLET PO (09:09)
[2024-06-23] MEDS: OLANZapine 10 MG TABLET PO (13:27)
[2024-06-23] MEDS: Artificial Tears 15 ML DROPS 1 DROP EYE-BOTH ×2 (13:28→17:27)
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
[2024-06-23] MEDS: LORazepam 1 MG TABLET 2 MG PO (16:05)
[2024-06-23] MEDS: HaloperidoL 5 MG TABLET PO (16:05)
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
[2024-06-23] MEDS: carBAMazepine 200 MG TABLET PO ×2 (17:21→20:54)
[2024-06-23] MEDS: Albuterol Sulfate 90 MCG 8 GM INHALER 2 PUFF INHALE (18:00)
[2024-06-23 20:00] VITALS: BP 123/60; PULSE 60; RESP 16; TEMP 36.6; O2SAT 97
[2024-06-23] MEDS: hydrOXYzine HCL 25 MG TABLET PO (20:53)
[2024-06-23] MEDS: traZODone HCL 100 MG TABLET PO (20:53)
[2024-06-23] MEDS: Atorvastatin Calcium 40 MG TABLET PO (20:54)
[2024-06-23] MEDS: Nicotine Polacrilex 2 MG GUM 4 MG BUCCAL (20:58)
[2024-06-24] MEDS: OLANZapine 10 MG TABLET PO ×2 (00:44→21:35)
[2024-06-24] MEDS: hydrOXYzine HCL 25 MG TABLET PO ×2 (05:41→21:35)
[2024-06-24] MEDS: Omeprazole 20 MG CAPSULE.DR PO (05:41)
[2024-06-24 08:00] VITALS: BP 131/74; PULSE 85; RESP 18; TEMP 36.1; O2SAT 99
[2024-06-24] MEDS: carBAMazepine 200 MG TABLET PO ×2 (08:26→21:00)
[2024-06-24] MEDS: Famotidine 20 MG TABLET PO (08:26)
[2024-06-24] MEDS: Thiamine HCL 100 MG TABLET PO (08:26)
[2024-06-24] MEDS: amLODIPine Besylate 2.5 MG TABLET PO (08:26)
[2024-06-24] MEDS: Folic Acid 1 MG TABLET PO (08:26)
[2024-06-24] MEDS: Aspirin Enteric Coated 81 MG TABLET.DR PO (08:26)
[2024-06-24] MEDS: clonazePAM 1 MG TABLET PO ×3 (08:26→21:30)
[2024-06-24] MEDS: Metoprolol Succinate ER 25 MG TAB.ER.24H PO (08:27)
[2024-06-24] MEDS: risperiDONE 2 MG TABLET PO ×3 (08:27→21:00)
[2024-06-24] MEDS: Ezetimibe 10 MG TABLET PO (08:27)
[2024-06-24] MEDS: Ferrous Sulfate 324 MG TABLET.DR PO (08:27)
--- NOTE | 2024-06-24 09:42 | HO.PSYCHPN ---
Subjective Subjective Date of Service: 06/24/24 Reason For Visit: Dysregulated Subjective Notes: Conditional Voluntary Interim History: The nursing staff reported the patient had needs frequent redirection he complains of auditory hallucinations that he had poor sleep. The web content & social media manager reported that we called DDS because he has not going back to his family's home. On interview the patient is pleasantly confused easily redirectable. We are ordering a new Tegretol level and blood work for tomorrow morning. The occupational therapist reported that she he has not appropriate for groups due to his severe cognitive impairment. Mental Status Exam Mental Status Exam Patient Appearance: Appropriate Patient Orientation: Person and Situation Level of Consciousness: Awake Patient Behavior: Guarded and Passive Mood Description: Withdrawn Affect Description: Constricted Patient Cognition Impaired: Yes Ability to Follow Directions: Good Speech Pattern: Clear Hallucinations: None Delusions: Ideas of Reference Thought Process: Distracted and Slowed Thinking Thought Content: positive for Poverty of Content and positive for Thought Blocking Judgement: Poor Diagnostics Vital Signs (24Hr): Vital Signs - 24 hr 06/23/24 20:00 06/24/24 08:00 Temperature 97.8 F 97.0 F Pulse Rate 60 85 Respiratory Rate 16 18 Blood Pressure 123/60 131/74 Pulse Oximetry 97 99 Oxygen Delivery Method Room Air Room Air BMI result Body Mass Index 30.7 Labs 06/25/24 07:51 06/03/24 13:51 Labs: Laboratory Results - last 48 hr 06/23/24 01:36 Influenza Type A (PCR) NEGATIVE Influenza Type B (PCR) NEGATIVE RSV RNA Qual (PCR) NEGATIVE SARS-CoV-2 RNA (RT-PCR) NEGATIVE Imaging Radiology Impressions: ITS Impressions Chest X-Ray 06/09/24 10:55 IMPRESSION: No acute process. Mild hyperinflation. Head CT 06/09/24 11:20 IMPRESSION: 1. No evidence of acute intracranial hemorrhage or edematous territorial infarction. 2. Mild underlying microangiopathy. Chest X-Ray 06/23/24 01:45 IMPRESSION: Low lung volumes. Minimal scarring or atelectasis at the right lung base. No other significant abnormality seen. Medications Medications Current Medications Al Hydroxide/Mg Hydroxide (Magnesium Hydrox/Alum Hydrox 30 Ml Oral.Susp) 30 ml PO Q6H PRN PRN Reason: Heartburn/Nausea Last Admin: 06/13/24 19:50 Dose: 30 ml Albuterol Sulfate (Albuterol Sulfate 90 Mcg 8 Gm Inhaler) 2 puff INHALE Q4H PRN PRN Reason: Wheezing Last Admin: 06/23/24 18:00 Dose: 2 puff Amlodipine Besylate (Amlodipine Besylate 2.5 Mg Tablet) 2.5 mg PO DAILY [facility]; Protocol Last Admin: 06/24/24 08:26 Dose: 2.5 mg Artificial Tears (Artificial Tears 15 Ml Drops) 1 drop EYE-BOTH Q4H PRN PRN Reason: Dry Eyes Last Admin: 06/23/24 17:27 Dose: 1 drop Aspirin (Aspirin Enteric Coated 81 Mg Tablet.) 81 mg PO DAILY [facility] Last Admin: 06/24/24 08:26 Dose: 81 mg Atorvastatin Calcium (Atorvastatin Calcium 40 Mg Tablet) 40 mg PO BEDTIME [facility] Last Admin: 06/23/24 20:54 Dose: 40 mg Carbamazepine (Carbamazepine 200 Mg Tablet) 200 mg PO BID [facility] Last Admin: 06/24/24 08:26 Dose: 200 mg Clonazepam (Clonazepam 1 Mg Tablet) 1 mg PO BID [facility] Last Admin: 06/24/24 08:26 Dose: 1 mg Ezetimibe (Ezetimibe 10 Mg Tablet) 10 mg PO DAILY [facility] Last Admin: 06/24/24 08:27 Dose: 10 mg Famotidine (Famotidine 20 Mg Tablet) 20 mg PO DAILY [facility] Last Admin: 06/24/24 08:26 Dose: 20 mg Ferrous Sulfate (Ferrous Sulfate 324 Mg Tablet.) 324 mg PO DAILY [facility] Last Admin: 06/24/24 08:27 Dose: 324 mg Folic Acid (Folic Acid 1 Mg Tablet) 1 mg PO DAILY [facility] Last Admin: 06/24/24 08:26 Dose: 1 mg Hydroxyzine HCl (Hydroxyzine Hcl 25 Mg Tablet) 25 mg PO Q6H PRN PRN Reason: Anxiety Last Admin: 06/24/24 05:41 Dose: 25 mg Magnesium Hydroxide (Milk Of Magnesia 30 Ml Oral.Susp) 30 ml PO DAILY PRN PRN Reason: Constipation Last Admin: 06/21/24 12:16 Dose: 30 ml Metoprolol Succinate (Metoprolol Succinate Er 25 Mg Tab.Er.24h) 25 mg PO DAILY [facility]; Protocol Last Admin: 06/24/24 08:27 Dose: 25 mg Nicotine Polacrilex (Nicotine Polacrilex 2 Mg Gum) 4 mg BUCCAL Q2H PRN PRN Reason: Nicotine Cravings Last Admin: 06/23/24 20:58 Dose: 4 mg Nicotine Polacrilex (Nicotine Polacrilex 2 Mg Gum) 4 mg BUCCAL Q2H PRN PRN Reason: Nicotine Cravings Last Admin: 06/05/24 21:42 Dose: 4 mg Olanzapine (Olanzapine 10 Mg Tablet) 10 mg PO Q6H PRN PRN Reason: psychosis, agitation Last Admin: 06/24/24 00:44 Dose: 10 mg Omeprazole (Omeprazole 20 Mg Capsule.Dr) 20 mg PO DAILY@0630 [facility] Last Admin: 06/24/24 05:41 Dose: 20 mg Risperidone (Risperidone 2 Mg Tablet) 2 mg PO TID [facility] Last Admin: 06/24/24 08:27 Dose: 2 mg Thiamine HCl (Thiamine Hcl 100 Mg Tablet) 100 mg PO DAILY [facility] Last Admin: 06/24/24 08:26 Dose: 100 mg Trazodone HCl (Trazodone Hcl 100 Mg Tablet) 100 mg PO BEDTIME [facility] Last Admin: 06/23/24 20:53 Dose: 100 mg Allergies Allergies Allergy/AdvReac Type Severity Reaction Status Date / Time acetaminophen Allergy Unknown PANADOL = Verified 06/02/24 16:01 ACETAMINOPHEN SHELLFISH Allergy Mild PATIENT Uncoded 06/02/24 16:01 REPORTS BURNING SENSATION THROUGHOUT OPIATES Allergy Unknown BECAME Uncoded 06/02/24 16:01 ADDICTED PANADOL Allergy Unknown UNKNOWN Uncoded 06/02/24 16:01 Assessment & Plan Assessment & Plan (1) Schizoaffective disorder: Qualifiers: Schizoaffective disorder type: unspecified Qualified Code(s): F25.9 - Schizoaffective disorder, unspecified Status: Acute Code(s): F25.9 - Schizoaffective disorder, unspecified (2) Intellectual delay: Status: Acute Code(s): F81.9 - Developmental disorder of scholastic skills, unspecified (3) CAD (coronary artery disease): Status: Acute Code(s): I25.10 - Atherosclerotic heart disease of [place] coronary artery without angina pectoris Plan Patient 59 yr old Maori-speaking male with schizoaffective disorder, cognitive delay, who lives with his mother, recently discharged from on 05/20/2024 who presents via family for increased paranoia, anger and confusion. At last admission there was the thought that patient was not taking all of his medications, since the bulk of his Risperdal was prescribed at bedtime and the [facility] only came in the morning. During this last admission, Risperdal changed so that he was taking the bulk of it in the morning and with VNA, seems he is taking his medications. Despite this, family reports that his behaviors are worsening. On the unit he is friendly and calm; he is confused saying he wants to go see his children, caring a pillow in his arms and calling it his baby. Formulation/clinical reasoning: It is not clear what is causing decline given that he is most likely taking his medications regularly. Some speculation that he might be abusing substance when out and about in neighborhood however UDS is negative. Setting up family meeting to discuss. Hospital course: 06/05 Patient denies any AH to functional tester typewriters. Denies any SI or HI and says I never look for problems... I am never aggressive... I am good... Although he denies AH, patient says there is too much noise on the unit, and that people are touching his face. Earlier he had told another staff that he was having AH to hurt himself but that he was able to ignore. Patient denies any current drug use; he adds that he used to live on the streets but now he goes to confucianist. Pearl Diver asked about why he had been carrying a pillow around calling it his baby; patient did not really answer but said that he has a son and a granddaughter and that his is . Patient said he wanted to go home but then agreed to wait for meeting with outpatient staff this next Saturday. -patient does seem more confused than he did at last admission. Will increase Risperdal 06/08 Patient remains disorganized, able to be goal-directed on some topics such as wanting is close but otherwise trying to enter in any open door he sees and needing frequent redirection. SW and functional tester typewriters Discussed case with outpt team: Efraín Gray, MICHAELS Nimisha Glaser DDS Marlyn Brennan [place] No one is sure why patient has decompensated after decades of remaining stable on Risperdal. Says that for some reason this past month he has been more paranoid, more disorganized and when he returned from last admission he was not quite back to baseline. The past weeks patient was given away clothing on the street. This past admission was following patient argument with a neighbor. Apparently he had been peeking into this neighbor's window, scaring the neighbor and scared the neighbor's kids. They had a verbal altercation; staff arrived and patient kept saying he was going to go over to the neighbor's and take care of the neighbor... No actual threat was made and patient has no history of aggression but because of this he was taken to the hospital. Bret has discussed eviction of both patient and his elderly mother if behaviors continue. Team wondered if patient was not taking his medications however functional tester typewriters explained that the bulk of his medications were switched so the VNA was giving him the 3 mg of Risperdal out of the 3.5 total daily dose making this less likely the issue. They say at baseline he paces and is anxious but he pretty much make sense and though he may say some delusional things his conversations are overall able to remain grounded in reality. Discussed various options including temporary housing and likelihood that patient will at some point in the near future need some type of group living arrangement as his mother is elderly and with some dementia Unclear why patient has decompensated; Increased Risperdal to see if that can help. Thus far no clear organic etiology; will get additional labs to trying rule out other possible causes, including HIV and RPR, magnesium, B12/folate; will likely get head CT, though anticipate that results will be unremarkable. UDS was negative and UA showed no bacterial growth. Will try to get more collateral from family 06/09 Patient remains confused and disorganized, jumping from topic to topic. He agrees to remain to have meeting on Saturday but otherwise says he is missing home. Patient denies any chest pain but passes hard to say that he has a heart condition and has a surgically implanted mesh. Patient starts to cry and says that people are laughing at him that he can hear them doing so; he also said that a staff person's came in to his room last night and choked. Patient started taking should often group today. Looking for any organic contribution to patient's decompensation, however: labs thus far unremarkable; magnesium/calcium WNL; electrolytes WNL Chest x-ray pending Repeat UA unremarkable; no evidence of UTI -Head CT however did show evidence of Mild underlying microangiopathy Which could indicate vascular dementia as a possible contribution, which does seem to worsen in a stepwise fashion Will continue with current medication regimen; if no improvement will consider switching to Zyprexa which is on the [facility] order. 06/11 Patient remains disorganized, delusional. Pearl Diver another staff person saying it was his son; telling functional tester typewriters he is going up by functional tester typewriters a car, telling other staff members the same. Saying he has to go downstairs and feed the baby... Review of chart shows that patient has been getting Zyprexa p.r.n. consistently which seems to subdue patients agitation for a bit however but has thus far not helped resolve psychotic symptoms. -it is unlikely that is scheduling Zyprexa will make much difference says he has gotten significant doses over the past 5 days; will leave his p.r.n. for now; however will monitor how much antipsychotic patient is getting and lower p.r.n. availability to b.i.d.. -Reviewed recent EKG and QTc Int : 489 ms which is mildly prolonged; will monitor 06/07 total daily dose 5 mg 06/08 15 mg 06/09 10 mg 06/10 15 mg 06/11 5 mg 06/12 remains delusional, disorganized, intermittently intrusive with peers, sometimes a little aggressive with peers but remains redirectable. Considering maybe switching to Zyprexa since Risperdal isn't helping with psychosis and perhaps Zyprexa can subdue agitated behaviors -outpatient team came to visit and report patient is far from baseline at which he had been for a decade until about a month ago 06/13 Remains delusional, disorganized. A little more agitated and today went after peer (unprovoked) at the phone, then went after another peer. Staff able to redirect each time and pt willing to take medication. Will dc risperdal since not making any differnece will instead try zyprexa 5mg TID...as a prn, it's helped subdue agitated behavior, though has not yet reduced delusional thinking. 06/14 Last night patient continued to be aggressive towards peers, delusional; functional tester typewriters on-call and discussed with nurse and gave Ativan 2 mg to see if that could subdue behaviors, trying to avoid giving more antipsychotic. However he remained intrusive and agitated towards peers, a little more difficult to redirect and so Thorazine 50 mg p.o. given. -Today, Patient less agitated and has not been aggressive towards peers; a little more calm and though he remains disorganized, delusional, a little easier to extract oneself conversation -typically patient is not aggressive towards peers and hopefully these behaviors will resolve with switch to Zyprexa; however he remains very intrusive, going into people's rooms, hanging up telephone calls, constantly asking nonsensical questions and he remains at risk for provoking peers. Will continue to monitor behaviors towards others and will strongly consider transferring patient to Geriatric unit for his own safety. Pearl Diver was Considering that perhaps patient maybe having some manic behaviors and might benefit from Depakote however since there is some mild improvement will continue with Zyprexa t.i.d. dosing for now and monitor 06/15 Patient remains disorganized, intrusive and asks to go home. Patient agreed to sign 3 day notice. Collateral: Chris reports that about once a year, patient gets dysregulated for a few weeks to a month, goes to the hospital and then seems to go back to normal. He said it happened last summer around April or May during which time patient had similar behaviors. He was on his way to his day program but never made it, picked up by police disheveled, confused, no shoes, wet and disoriented. Was hospitalized. Chris reports that since then he has been back to his baseline until about a month ago. He reports that at the apartment he had a sudden change, disoriented, using bad words, saying bad things to the neighbors, giving way is close. Chris thinks that patient is getting a little better since this admission and it is overall less intense than last year. Shared some additional history, the patient was but no children; they years ago. Grew up going to a school for people with intellectual disability. 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 Did get involved in some drugs, cocaine and huffing on the streets in [place]; does not think much drug abuses happened here other than cannabis -Given collateral computer information systems professor again thinks that patient might benefit from Depakote since he he continues to have manic behaviors which per his brother, are episodic. 7/30 Starting Depakote; will continue with Zyprexa for now but will likely go back to Risperdal since it can be once a day dosing and seems to maintain patient for nearly a year in between manic episodes -discussed with patient need to remain on unit for medication, discussed diagnosis; patient continued to insist he wanted to go home and would not retract 3 day 06/17 continue tx. 3 day up tomorrow. 06/18 file for 06/19 continue tx. 06/20 ammonia high. will start lactulose and dc depakote. will switch back to risperidone with prn olanzapine. pending collateral from family. 06/21 continue tx. 06/22 ammonia back to normal. increase risperidone 2mg po TID. poor sleep. PLAN: 3 day notice Guardian; pt has given permission to talk with his family 1:1 for accidental intrusiveness to others and needing to be redirected Start Depakote Ir 250mg one time START Depakote ER 500mg qhs continue Zyprexa 5mg TID consider Depakote if aggressive behaviors return DC risperidone (was on 3 mg b.i.d. up from home dose which was a total daily dose of 3.5mg)) Mirtazapine 30 mg PO BEDTIME KAREN Benztropine Mesylate 0.5 mg PO BID KAREN Clonazepam 0.5 mg PO BID KAREN Lower PRN Zyprexa 5mg to BID (Zyprexa seems to help subdue agitation but not resolve psychosis; will lower dose available given mild prolongation of QTC) Omeprazole 20 mg PO DAILY@0630 [facility] Albuterol Sulfate 2 puff INHALE Q4H PRN Amlodipine Besylate 2.5 mg PO DAILY [facility]; Protocol Artificial Tears 1 drop EYE-BOTH Q4H PRN Aspirin 81 mg PO DAILY [facility] Atorvastatin Calcium 40 mg PO BEDTIME [facility] Ezetimibe 10 mg PO DAILY [facility] Ferrous Sulfate 324 mg PO DAILY [facility] Folic Acid 1 mg PO DAILY KAREN Hydroxyzine HCl 25 mg PO Q6H PRN Metoprolol Succinate 25 mg PO DAILY [facility]; Protocol Thiamine HCl 100 mg PO DAILY [facility] Trazodone HCl 100 mg PO BEDTIME [facility] effective to March 26, 2025: Risperdal up to 10mg daily (primary) Geodon up to 60mg daily Zyprexa up to 25mg daily later in evening pt complained of right sided chest pain; vitals WNL and pt not in any distress but given hx for CAD ordered EKG and trop On June 24 we are ordering for the next day Tegretol level CBC with differential and liver function panel. Reason for continued inpatient stay Substantial Risk for: inability to function, rapid decompensation and med/psych decompensation Time Spent With Patient Time: Total time managing care of this patient today _20___ minutes.
[2024-06-24] MEDS: Artificial Tears 15 ML DROPS 1 DROP EYE-BOTH ×2 (15:57→22:33)
[2024-06-24] MEDS: Albuterol Sulfate 90 MCG 8 GM INHALER 2 PUFF INHALE ×2 (15:57→22:33)
[2024-06-24] MEDS: Milk of Magnesia 30 ML ORAL.SUSP PO (16:04)
[2024-06-24] MEDS: Nicotine Polacrilex 2 MG GUM 4 MG BUCCAL ×2 (17:35→21:37)
[2024-06-24 20:00] VITALS: BP 162/70; PULSE 87; RESP 16; TEMP 36.8; O2SAT 96
[2024-06-24] MEDS: traZODone HCL 100 MG TABLET PO (21:00)
[2024-06-24] MEDS: Atorvastatin Calcium 40 MG TABLET PO (21:01)
[2024-06-24] MEDS: Magnesium Hydrox/Alum Hydrox 30 ML ORAL.SUSP PO (22:33)
[2024-06-25] MEDS: hydrOXYzine HCL 25 MG TABLET PO ×3 (03:15→17:43)
[2024-06-25] MEDS: OLANZapine 10 MG TABLET PO ×2 (05:08→17:48)
[2024-06-25] MEDS: Omeprazole 20 MG CAPSULE.DR PO (05:08)
[2024-06-25 07:55] LABS: MANUAL DIFF FLAG NO
[2024-06-25 07:59] LABS: Basophils Absolute Auto 0.1 X10*3/uL (0.0-0.2); Basophils Percent Auto 0.5 % (0-2); Eosinophils Absolute Auto 0.1 X10*3/uL (0.0-0.4); Eosinophils Percent Auto 1.4 % (0-4); Hematocrit 38.8 % (42.0-52.0); Hemoglobin 12.5 g/dl (14.0-18.0); Imm Gran Abs Auto 0.07 X10*3/uL (0.00-0.03); Imm Gran Pct Auto 0.7 % (0.0-0.4); Lymphocytes Absolute Auto 1.6 X10*3/uL (1.2-4.9); Lymphocytes Percent Auto 16.7 % (20-40); Mean Corpuscular HGB Conc 32.2 g/dl (31.0-36.0); Mean Corpuscular Hemoglobin 28.1 pg (27.0-33.0); Mean Corpuscular Volume 87.2 fL (80.0-98.0); Mean Platelet Volume 10.2 fL (9.4-12.4); Monocytes Absolute Auto 0.8 X10*3/uL (0.1-1.2); Monocytes Percent Auto 8.4 % (2-11); Neutrophils Absolute Auto 6.8 x10*3/uL (2.0-8.3); Neutrophils Percent Auto 72.3 % (45-73); Platelet Count 229 X10*3/uL (160-400); Red Blood Count 4.45 X10*6/uL (4.60-5.80); Red Cell Distribution Width 14.6 % (11.0-16.0); White Blood Count 9.4 X10*3/uL (4.8-10.8)
[2024-06-25 08:00] VITALS: BP 133/68; PULSE 89; RESP 16; TEMP 36.4; O2SAT 98
[2024-06-25 08:12] LABS: Alanine Aminotransferase 28 U/L (0-40); Alkaline Phosphatase 102 U/L (39-117); Aspartate Amino Transferase 26 U/L (5-37); Bilirubin Direct < 0.2 mg/dL (0.0-0.5); Bilirubin Total 0.2 mg/dL (0.0-1.0); Total Protein 7.5 g/dL (6.5-8.0)
[2024-06-25 08:13] LABS: Carbamazepine Tegretol 7.8 mcg/mL (5.0-12.0)
[2024-06-25 09:05] VITALS: BMI 32.2
[2024-06-25 09:29] VITALS: BP 133/68; PULSE 89
[2024-06-25] MEDS: amLODIPine Besylate 2.5 MG TABLET PO (09:29)
[2024-06-25] MEDS: Thiamine HCL 100 MG TABLET PO (09:29)
[2024-06-25] MEDS: Ezetimibe 10 MG TABLET PO (09:29)
[2024-06-25] MEDS: Ferrous Sulfate 324 MG TABLET.DR PO (09:29)
[2024-06-25] MEDS: Metoprolol Succinate ER 25 MG TAB.ER.24H PO (09:29)
[2024-06-25] MEDS: carBAMazepine 200 MG TABLET PO ×2 (09:29→20:17)
[2024-06-25] MEDS: Famotidine 20 MG TABLET PO (09:29)
[2024-06-25] MEDS: Folic Acid 1 MG TABLET PO (09:29)
[2024-06-25] MEDS: Aspirin Enteric Coated 81 MG TABLET.DR PO (09:29)
[2024-06-25] MEDS: clonazePAM 1 MG TABLET PO ×2 (09:30→20:17)
[2024-06-25] MEDS: risperiDONE 2 MG TABLET PO ×3 (09:30→20:16)
[2024-06-25] MEDS: Albuterol Sulfate 90 MCG 8 GM INHALER 2 PUFF INHALE ×2 (09:30→21:14)
[2024-06-25] MEDS: Artificial Tears 15 ML DROPS 1 DROP EYE-BOTH ×2 (09:35→21:13)
[2024-06-25] MEDS: Nicotine Polacrilex 2 MG GUM 4 MG BUCCAL ×4 (09:37→20:28)
--- NOTE | 2024-06-25 16:06 | P.PNPSI_ITS ---
Subjective Subjective Date of Service: 06/25/24 Reason For Visit: Dysregulated Subjective Notes: Conditional Voluntary Interim History: The nursing staff reported the patient slept 5 hours he remains disorganized confused at times but easily redirectable. Today in the morning he was medicated with Zyprexa p.o.. On interview the patient was confused easily redirectable he stating that he is taking his medications. His Risperdal was recently increased up to 6 mg a day and we will wait another 24 hours to do any med changes. Mental Status Exam Mental Status Exam Patient Appearance: Appropriate Patient Orientation: Person and Situation Level of Consciousness: Awake and Appropriate Patient Behavior: Guarded and Passive Mood Description: Withdrawn Affect Description: Constricted Patient Cognition Impaired: Yes Ability to Follow Directions: Good Speech Pattern: Clear Hallucinations: Auditory Delusions: Paranoid Ideation and Ideas of Reference Thought Process: Distracted and Slowed Thinking Thought Content: positive for [place], positive for Poverty of Content and positive for Thought Blocking Judgement: Poor Diagnostics Vital Signs (24Hr): Vital Signs - 24 hr 06/24/24 20:00 06/25/24 08:00 06/25/24 09:29 Temperature 98.2 F 97.6 F Pulse Rate 87 89 Respiratory Rate 16 16 Blood Pressure 162/70 H 133/68 133/68 Pulse Oximetry 96 98 Oxygen Delivery Method Room Air Room Air 06/25/24 09:29 Temperature Pulse Rate 89 Respiratory Rate Blood Pressure 133/68 Pulse Oximetry Oxygen Delivery Method BMI result Body Mass Index 32.2 Labs 06/25/24 07:51 06/03/24 13:51 Labs: Laboratory Results - last 48 hr 06/25/24 07:51 WBC 9.4 RBC 4.45 L Hgb 12.5 L Hct 38.8 L MCV 87.2 MCH 28.1 MCHC 32.2 RDW 14.6 Plt Count 229 MPV 10.2 Immature Gran % (Auto) 0.7 H Neut % (Auto) 72.3 Lymph % (Auto) 16.7 L Gila % (Auto) 8.4 Eos % (Auto) 1.4 Baso % (Auto) 0.5 Lymph # (Auto) 1.6 [place] # (Auto) 0.8 Eos # (Auto) 0.1 Baso # (Auto) 0.1 Abs Immat Gran (auto) 0.07 H Absolute Neuts (auto) 6.8 Absolute Nucleated RBC 0.000 Nucleated RBC % (auto) 0.0 Total Bilirubin 0.2 Direct Bilirubin < 0.2 AST 26 ALT 28 Alkaline Phosphatase 102 Total Protein 7.5 Albumin 4.0 Carbamazepine 7.8 Imaging Radiology Impressions: ITS Impressions Chest X-Ray 06/09/24 10:55 IMPRESSION: No acute process. Mild hyperinflation. Head CT 06/09/24 11:20 IMPRESSION: 1. No evidence of acute intracranial hemorrhage or edematous territorial infarction. 2. Mild underlying microangiopathy. Chest X-Ray 06/23/24 01:45 IMPRESSION: Low lung volumes. Minimal scarring or atelectasis at the right lung base. No other significant abnormality seen. Medications Medications Current Medications Al Hydroxide/Mg Hydroxide (Magnesium Hydrox/Alum Hydrox 30 Ml Oral.Susp) 30 ml PO Q6H PRN PRN Reason: Heartburn/Nausea Last Admin: 06/24/24 22:33 Dose: 30 ml Albuterol Sulfate (Albuterol Sulfate 90 Mcg 8 Gm Inhaler) 2 puff INHALE Q4H PRN PRN Reason: Wheezing Last Admin: 06/25/24 09:30 Dose: 2 puff Amlodipine Besylate (Amlodipine Besylate 2.5 Mg Tablet) 2.5 mg PO DAILY [facility]; Protocol Last Admin: 06/25/24 09:29 Dose: 2.5 mg Artificial Tears (Artificial Tears 15 Ml Drops) 1 drop EYE-BOTH Q4H PRN PRN Reason: Dry Eyes Last Admin: 06/25/24 09:35 Dose: 1 drop Aspirin (Aspirin Enteric Coated 81 Mg Tablet.Dr) 81 mg PO DAILY [facility] Last Admin: 06/25/24 09:29 Dose: 81 mg Atorvastatin Calcium (Atorvastatin Calcium 40 Mg Tablet) 40 mg PO BEDTIME KAREN Last Admin: 06/24/24 21:01 Dose: 40 mg Carbamazepine (Carbamazepine 200 Mg Tablet) 200 mg PO BID [facility] Last Admin: 06/25/24 09:29 Dose: 200 mg Clonazepam (Clonazepam 1 Mg Tablet) 1 mg PO BID [facility] Last Admin: 06/25/24 09:30 Dose: 1 mg Ezetimibe (Ezetimibe 10 Mg Tablet) 10 mg PO DAILY [facility] Last Admin: 06/25/24 09:29 Dose: 10 mg Famotidine (Famotidine 20 Mg Tablet) 20 mg PO DAILY [facility] Last Admin: 06/25/24 09:29 Dose: 20 mg Ferrous Sulfate (Ferrous Sulfate 324 Mg Tablet.) 324 mg PO DAILY [facility] Last Admin: 06/25/24 09:29 Dose: 324 mg Folic Acid (Folic Acid 1 Mg Tablet) 1 mg PO DAILY [facility] Last Admin: 06/25/24 09:29 Dose: 1 mg Hydroxyzine HCl (Hydroxyzine Hcl 25 Mg Tablet) 25 mg PO Q6H PRN PRN Reason: Anxiety Last Admin: 06/25/24 09:29 Dose: 25 mg Magnesium Hydroxide (Milk Of Magnesia 30 Ml Oral.Susp) 30 ml PO DAILY PRN PRN Reason: Constipation Last Admin: 06/24/24 16:04 Dose: 30 ml Metoprolol Succinate (Metoprolol Succinate Er 25 Mg Tab.Er.24h) 25 mg PO DAILY [facility]; Protocol Last Admin: 06/25/24 09:29 Dose: 25 mg Nicotine Polacrilex (Nicotine Polacrilex 2 Mg Gum) 4 mg BUCCAL Q2H PRN PRN Reason: Nicotine Cravings Last Admin: 06/25/24 13:12 Dose: 4 mg Nicotine Polacrilex (Nicotine Polacrilex 2 Mg Gum) 4 mg BUCCAL Q2H PRN PRN Reason: Nicotine Cravings Last Admin: 06/05/24 21:42 Dose: 4 mg Olanzapine (Olanzapine 10 Mg Tablet) 10 mg PO Q6H PRN PRN Reason: psychosis, agitation Last Admin: 06/25/24 05:08 Dose: 10 mg Omeprazole (Omeprazole 20 Mg Capsule.) 20 mg PO DAILY@0630 [facility] Last Admin: 06/25/24 05:08 Dose: 20 mg Risperidone (Risperidone 2 Mg Tablet) 2 mg PO TID [facility] Last Admin: 06/25/24 15:37 Dose: 2 mg Thiamine HCl (Thiamine Hcl 100 Mg Tablet) 100 mg PO DAILY [facility] Last Admin: 06/25/24 09:29 Dose: 100 mg Trazodone HCl (Trazodone Hcl 100 Mg Tablet) 100 mg PO BEDTIME [facility] Last Admin: 06/24/24 21:00 Dose: 100 mg Allergies Allergies Allergy/AdvReac Type Severity Reaction Status Date / Time acetaminophen Allergy Unknown PANADOL = Verified 06/02/24 16:01 ACETAMINOPHEN SHELLFISH Allergy Mild PATIENT Uncoded 06/02/24 16:01 REPORTS BURNING SENSATION THROUGHOUT OPIATES Allergy Unknown BECAME Uncoded 06/02/24 16:01 ADDICTED PANADOL Allergy Unknown UNKNOWN Uncoded 06/02/24 16:01 Assessment & Plan Assessment & Plan (1) Schizoaffective disorder: Qualifiers: Schizoaffective disorder type: unspecified Qualified Code(s): F25.9 - Schizoaffective disorder, unspecified Status: Acute Code(s): F25.9 - Schizoaffective disorder, unspecified (2) Intellectual delay: Status: Acute Code(s): F81.9 - Developmental disorder of scholastic skills, unspecified (3) CAD (coronary artery disease): Status: Acute Code(s): I25.10 - Atherosclerotic heart disease of [place] coronary artery without angina pectoris Plan Patient 59 yr old Cymro-speaking male with schizoaffective disorder, cognitive delay, who lives with his mother, recently discharged from on 05/20/2024 who presents via family for increased paranoia, anger and confusion. At last admission there was the thought that patient was not taking all of his medications, since the bulk of his Risperdal was prescribed at bedtime and the [facility] only came in the morning. During this last admission, Risperdal changed so that he was taking the bulk of it in the morning and with VNA, seems he is taking his medications. Despite this, family reports that his behaviors are worsening. On the unit he is friendly and calm; he is confused saying he wants to go see his children, caring a pillow in his arms and calling it his baby. Formulation/clinical reasoning: It is not clear what is causing decline given that he is most likely taking his medications regularly. Some speculation that he might be abusing substance when out and about in neighborhood however UDS is negative. Setting up family meeting to discuss. Hospital course: 06/05 Patient denies any AH to group underwriter. Denies any SI or HI and says I never look for problems... I am never aggressive... I am good... Although he denies AH, patient says there is too much noise on the unit, and that people are touching his face. Earlier he had told another staff that he was having AH to hurt himself but that he was able to ignore. Patient denies any current drug use; he adds that he used to live on the streets but now he goes to [facility]. Safety Security Officer asked about why he had been carrying a pillow around calling it his baby; patient did not really answer but said that he has a son and a granddaughter and that his is . Patient said he wanted to go home but then agreed to wait for meeting with outpatient staff this next Saturday. -patient does seem more confused than he did at last admission. Will increase Risperdal 06/08 Patient remains disorganized, able to be goal-directed on some topics such as wanting is close but otherwise trying to enter in any open door he sees and needing frequent redirection. SW and group underwriter Discussed case with outpt team: Efraín Gray, MICHAELS Nimisha Glaser DDS Marlyn HOOVER CM No one is sure why patient has decompensated after decades of remaining stable on Risperdal. Says that for some reason this past month he has been more paranoid, more disorganized and when he returned from last admission he was not quite back to baseline. The past weeks patient was given away clothing on the street. This past admission was following patient argument with a neighbor. Apparently he had been peeking into this neighbor's window, scaring the neighbor and scared the neighbor's kids. They had a verbal altercation; staff arrived and patient kept saying he was going to go over to the neighbor's and take care of the neighbor... No actual threat was made and patient has no history of aggression but because of this he was taken to the hospital. Bret has discussed eviction of both patient and his elderly mother if behaviors continue. Team wondered if patient was not taking his medications however group underwriter explained that the bulk of his medications were switched so the [facility]NA was giving him the 3 mg of Risperdal out of the 3.5 total daily dose making this less likely the issue. They say at baseline he paces and is anxious but he pretty much make sense and though he may say some delusional things his conversations are overall able to remain grounded in reality. Discussed various options including temporary housing and likelihood that patient will at some point in the near future need some type of group living arrangement as his mother is elderly and with some dementia Unclear why patient has decompensated; Increased Risperdal to see if that can help. Thus far no clear organic etiology; will get additional labs to trying rule out other possible causes, including HIV and RPR, magnesium, B12/folate; will likely get head CT, though anticipate that results will be unremarkable. UDS was negative and UA showed no bacterial growth. Will try to get more collateral from family 06/09 Patient remains confused and disorganized, jumping from topic to topic. He agrees to remain to have meeting on Saturday but otherwise says he is missing home. Patient denies any chest pain but passes hard to say that he has a heart condition and has a surgically implanted mesh. Patient starts to cry and says that people are laughing at him that he can hear them doing so; he also said that a staff person's came in to his room last night and choked. Patient started taking should often group today. Looking for any organic contribution to patient's decompensation, however: labs thus far unremarkable; magnesium/calcium WNL; electrolytes WNL Chest x-ray pending Repeat UA unremarkable; no evidence of UTI -Head CT however did show evidence of Mild underlying microangiopathy Which could indicate vascular dementia as a possible contribution, which does seem to worsen in a stepwise fashion Will continue with current medication regimen; if no improvement will consider switching to Zyprexa which is on the [facility] order. 06/11 Patient remains disorganized, delusional. Safety Security Officer another staff person saying it was his son; telling group underwriter he is going up by group underwriter a car, telling other staff members the same. Saying he has to go downstairs and feed the baby... Review of chart shows that patient has been getting Zyprexa p.r.n. consistently which seems to subdue patients agitation for a bit however but has thus far not helped resolve psychotic symptoms. -it is unlikely that is scheduling Zyprexa will make much difference says he has gotten significant doses over the past 5 days; will leave his p.r.n. for now; however will monitor how much antipsychotic patient is getting and lower p.r.n. availability to b.i.d.. -Reviewed recent EKG and QTc Int : 489 ms which is mildly prolonged; will monitor 06/07 total daily dose 5 mg 06/08 15 mg 06/09 10 mg 06/10 15 mg 06/11 5 mg 06/12 remains delusional, disorganized, intermittently intrusive with peers, sometimes a little aggressive with peers but remains redirectable. Considering maybe switching to Zyprexa since Risperdal isn't helping with psychosis and perhaps Zyprexa can subdue agitated behaviors -outpatient team came to visit and report patient is far from baseline at which he had been for a decade until about a month ago 06/13 Remains delusional, disorganized. A little more agitated and today went after peer (unprovoked) at the phone, then went after another peer. Staff able to redirect each time and pt willing to take medication. Will dc risperdal since not making any differnece will instead try zyprexa 5mg TID...as a prn, it's helped subdue agitated behavior, though has not yet reduced delusional thinking. 06/14 Last night patient continued to be aggressive towards peers, delusional; group underwriter on-call and discussed with nurse and gave Ativan 2 mg to see if that could subdue behaviors, trying to avoid giving more antipsychotic. However he remained intrusive and agitated towards peers, a little more difficult to redirect and so Thorazine 50 mg p.o. given. -Today, Patient less agitated and has not been aggressive towards peers; a little more calm and though he remains disorganized, delusional, a little easier to extract oneself conversation -typically patient is not aggressive towards peers and hopefully these behaviors will resolve with switch to Zyprexa; however he remains very intrusive, going into people's rooms, hanging up telephone calls, constantly asking nonsensical questions and he remains at risk for provoking peers. Will continue to monitor behaviors towards others and will strongly consider transferring patient to Geriatric unit for his own safety. Safety Security Officer was Considering that perhaps patient maybe having some manic behaviors and might benefit from Depakote however since there is some mild improvement will continue with Zyprexa t.i.d. dosing for now and monitor 06/15 Patient remains disorganized, intrusive and asks to go home. Patient agreed to sign 3 day notice. Collateral: Chris reports that about once a year, patient gets dysregulated for a few weeks to a month, goes to the hospital and then seems to go back to normal. He said it happened last summer around April or May during which time patient had similar behaviors. He was on his way to his day program but never made it, picked up by police disheveled, confused, no shoes, wet and disoriented. Was hospitalized. Chris reports that since then he has been back to his baseline until about a month ago. He reports that at the apartment he had a sudden change, disoriented, using bad words, saying bad things to the neighbors, giving way is close. Chris thinks that patient is getting a little better since this admission and it is overall less intense than last year. Shared some additional history, the patient was but no children; they years ago. Grew up going to a school for people with intellectual disability. 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 Did get involved in some drugs, cocaine and huffing on the streets in [place]; does not think much drug abuses happened here other than cannabis -Given collateral information assurance engineer again thinks that patient might benefit from Depakote since he he continues to have manic behaviors which per his brother, are episodic. 06/16 Starting Depakote; will continue with Zyprexa for now but will likely go back to Risperdal since it can be once a day dosing and seems to maintain patient for nearly a year in between manic episodes -discussed with patient need to remain on unit for medication, discussed diagnosis; patient continued to insist he wanted to go home and would not retract 3 day 06/17 continue tx. 3 day up tomorrow. 06/18 file for 06/19 continue tx. 06/20 ammonia high. will start lactulose and dc depakote. will switch back to risperidone with prn olanzapine. pending collateral from family. 06/21 continue tx. 06/22 ammonia back to normal. increase risperidone 2mg po TID. poor sleep. PLAN: 3 day notice Guardian; pt has given permission to talk with his family 1:1 for accidental intrusiveness to others and needing to be redirected Start Depakote Ir 250mg one time START Depakote ER 500mg qhs continue Zyprexa 5mg TID consider Depakote if aggressive behaviors return DC risperidone (was on 3 mg b.i.d. up from home dose which was a total daily dose of 3.5mg)) Mirtazapine 30 mg PO BEDTIME KAREN Benztropine Mesylate 0.5 mg PO BID KAREN Clonazepam 0.5 mg PO BID KAREN Lower PRN Zyprexa 5mg to BID (Zyprexa seems to help subdue agitation but not resolve psychosis; will lower dose available given mild prolongation of QTC) Omeprazole 20 mg PO DAILY@0630 [facility] Albuterol Sulfate 2 puff INHALE Q4H PRN Amlodipine Besylate 2.5 mg PO DAILY [facility]; Protocol Artificial Tears 1 drop EYE-BOTH Q4H PRN Aspirin 81 mg PO DAILY [facility] Atorvastatin Calcium 40 mg PO BEDTIME [facility] Ezetimibe 10 mg PO DAILY [facility] Ferrous Sulfate 324 mg PO DAILY [facility] Folic Acid 1 mg PO DAILY [facility] Hydroxyzine HCl 25 mg PO Q6H PRN Metoprolol Succinate 25 mg PO DAILY [facility]; Protocol Thiamine HCl 100 mg PO DAILY [facility] Trazodone HCl 100 mg PO BEDTIME [facility] effective to March 26, 2025: Risperdal up to 10mg daily (primary) Geodon up to 60mg daily Zyprexa up to 25mg daily later in evening pt complained of right sided chest pain; vitals WNL and pt not in any distress but given hx for CAD ordered EKG and trop On June 24 we are ordering for the next day Tegretol level CBC with differential and liver function panel. It came back on a therapeutic range. Reason for continued inpatient stay Substantial Risk for: inability to function, rapid decompensation and med/psych decompensation Time Spent With Patient Time: Total time managing care of this patient today __20__ minutes.
[2024-06-25 20:00] VITALS: BP 129/83; PULSE 90; RESP 16; TEMP 36.6; O2SAT 98
[2024-06-25] MEDS: Atorvastatin Calcium 40 MG TABLET PO (20:16)
[2024-06-25] MEDS: traZODone HCL 100 MG TABLET PO (20:16)
[2024-06-26] MEDS: hydrOXYzine HCL 25 MG TABLET PO ×2 (03:05→23:52)
[2024-06-26] MEDS: OLANZapine 10 MG TABLET PO ×3 (03:05→23:56)
[2024-06-26] MEDS: Nicotine Polacrilex 2 MG GUM 4 MG BUCCAL ×3 (03:19→17:32)
[2024-06-26 08:00] VITALS: BP 128/69; PULSE 86; RESP 18; TEMP 36.6; O2SAT 98
[2024-06-26] MEDS: Ezetimibe 10 MG TABLET PO (09:29)
[2024-06-26] MEDS: Aspirin Enteric Coated 81 MG TABLET.DR PO (09:29)
[2024-06-26] MEDS: Folic Acid 1 MG TABLET PO (09:29)
[2024-06-26] MEDS: Ferrous Sulfate 324 MG TABLET.DR PO (09:29)
[2024-06-26] MEDS: amLODIPine Besylate 2.5 MG TABLET PO (09:29)
[2024-06-26] MEDS: Metoprolol Succinate ER 25 MG TAB.ER.24H PO (09:30)
[2024-06-26] MEDS: clonazePAM 1 MG TABLET PO ×2 (09:30→20:40)
[2024-06-26] MEDS: Famotidine 20 MG TABLET PO (09:31)
[2024-06-26] MEDS: carBAMazepine 200 MG TABLET PO ×2 (09:31→20:40)
[2024-06-26] MEDS: Thiamine HCL 100 MG TABLET PO (09:31)
[2024-06-26] MEDS: Omeprazole 20 MG CAPSULE.DR PO (09:31)
--- NOTE | 2024-06-26 13:22 | P.PNPSI_ITS ---
Subjective Subjective Date of Service: 06/26/24 Reason For Visit: Dysregulated Subjective Notes: Conditional Voluntary Guardianship: Yes Interim History: The nursing staff reported the patient had been complaining of pain but he can not use NSAIDs due to a past GI bleed be. He remains paranoid and delusional stating that the devil is going to get him. On interview the patient reported that he is doing well and he wants to go back home, today we decided to increase his Risperdal to 3 mg p.o. t.i.d., he remains on one-to-one for safety. Mental Status Exam Mental Status Exam Patient Appearance: Appropriate Patient Orientation: Person and Situation Level of Consciousness: Awake and Appropriate Patient Behavior: Guarded and Passive Mood Description: Withdrawn Affect Description: Constricted Patient Cognition Impaired: Yes Ability to Follow Directions: Good Speech Pattern: Clear Hallucinations: Auditory Delusions: Paranoid Ideation and Ideas of Reference Thought Process: Distracted, Slowed Thinking and Confusion Thought Content: positive for Perseveration, positive for Poverty of Content and positive for Thought Blocking Judgement: Poor Diagnostics Vital Signs (24Hr): Vital Signs - 24 hr 06/25/24 20:00 06/26/24 08:00 Temperature 97.8 F 98 F Pulse Rate 90 86 Respiratory Rate 16 18 Blood Pressure 129/83 128/69 Pulse Oximetry 98 98 Oxygen Delivery Method Room Air Room Air BMI result Body Mass Index 32.2 Labs 06/25/24 07:51 06/03/24 13:51 Labs: Laboratory Results - last 48 hr 06/25/24 07:51 WBC 9.4 RBC 4.45 L Hgb 12.5 L Hct 38.8 L MCV 87.2 MCH 28.1 MCHC 32.2 RDW 14.6 Plt Count 229 MPV 10.2 Immature Gran % (Auto) 0.7 H Neut % (Auto) 72.3 Lymph % (Auto) 16.7 L [place] % (Auto) 8.4 Eos % (Auto) 1.4 Baso % (Auto) 0.5 Lymph # (Auto) 1.6 [place] # (Auto) 0.8 Eos # (Auto) 0.1 Baso # (Auto) 0.1 Abs Immat Gran (auto) 0.07 H Absolute Neuts (auto) 6.8 Absolute Nucleated RBC 0.000 Nucleated RBC % (auto) 0.0 Total Bilirubin 0.2 Direct Bilirubin < 0.2 AST 26 ALT 28 Alkaline Phosphatase 102 Total Protein 7.5 Albumin 4.0 Carbamazepine 7.8 Imaging Radiology Impressions: ITS Impressions Chest X-Ray 06/09/24 10:55 IMPRESSION: No acute process. Mild hyperinflation. Head CT 06/09/24 11:20 IMPRESSION: 1. No evidence of acute intracranial hemorrhage or edematous territorial infarction. 2. Mild underlying microangiopathy. Chest X-Ray 06/23/24 01:45 IMPRESSION: Low lung volumes. Minimal scarring or atelectasis at the right lung base. No other significant abnormality seen. Medications Medications Current Medications Al Hydroxide/Mg Hydroxide (Magnesium Hydrox/Alum Hydrox 30 Ml Oral.Susp) 30 ml PO Q6H PRN PRN Reason: Heartburn/Nausea Last Admin: 06/24/24 22:33 Dose: 30 ml Albuterol Sulfate (Albuterol Sulfate 90 Mcg 8 Gm Inhaler) 2 puff INHALE Q4H PRN PRN Reason: Wheezing Last Admin: 06/25/24 21:14 Dose: 2 puff Amlodipine Besylate (Amlodipine Besylate 2.5 Mg Tablet) 2.5 mg PO DAILY [facility]; Protocol Last Admin: 06/26/24 09:29 Dose: 2.5 mg Artificial Tears (Artificial Tears 15 Ml Drops) 1 drop EYE-BOTH Q4H PRN PRN Reason: Dry Eyes Last Admin: 06/25/24 21:13 Dose: 1 drop Aspirin (Aspirin Enteric Coated 81 Mg Tablet.) 81 mg PO DAILY [facility] Last Admin: 06/26/24 09:29 Dose: 81 mg Atorvastatin Calcium (Atorvastatin Calcium 40 Mg Tablet) 40 mg PO BEDTIME [facility] Last Admin: 06/25/24 20:16 Dose: 40 mg Carbamazepine (Carbamazepine 200 Mg Tablet) 200 mg PO BID [facility] Last Admin: 06/26/24 09:31 Dose: 200 mg Clonazepam (Clonazepam 1 Mg Tablet) 1 mg PO BID [facility] Last Admin: 06/26/24 09:30 Dose: 1 mg Ezetimibe (Ezetimibe 10 Mg Tablet) 10 mg PO DAILY [facility] Last Admin: 06/26/24 09:29 Dose: 10 mg Famotidine (Famotidine 20 Mg Tablet) 20 mg PO DAILY [facility] Last Admin: 06/26/24 09:31 Dose: 20 mg Ferrous Sulfate (Ferrous Sulfate 324 Mg Tablet.) 324 mg PO DAILY [facility] Last Admin: 06/26/24 09:29 Dose: 324 mg Folic Acid (Folic Acid 1 Mg Tablet) 1 mg PO DAILY [facility] Last Admin: 06/26/24 09:29 Dose: 1 mg Hydroxyzine HCl (Hydroxyzine Hcl 25 Mg Tablet) 25 mg PO Q6H PRN PRN Reason: Anxiety Last Admin: 06/26/24 03:05 Dose: 25 mg Magnesium Hydroxide (Milk Of Magnesia 30 Ml Oral.Susp) 30 ml PO DAILY PRN PRN Reason: Constipation Last Admin: 06/24/24 16:04 Dose: 30 ml Metoprolol Succinate (Metoprolol Succinate Er 25 Mg Tab.Er.24h) 25 mg PO DAILY [facility]; Protocol Last Admin: 06/26/24 09:30 Dose: 25 mg Nicotine Polacrilex (Nicotine Polacrilex 2 Mg Gum) 4 mg BUCCAL Q2H PRN PRN Reason: Nicotine Cravings Last Admin: 06/26/24 12:44 Dose: 4 mg Nicotine Polacrilex (Nicotine Polacrilex 2 Mg Gum) 4 mg BUCCAL Q2H PRN PRN Reason: Nicotine Cravings Last Admin: 06/05/24 21:42 Dose: 4 mg Olanzapine (Olanzapine 10 Mg Tablet) 10 mg PO Q6H PRN PRN Reason: psychosis, agitation Last Admin: 06/26/24 03:05 Dose: 10 mg Omeprazole (Omeprazole 20 Mg Capsule.) 20 mg PO DAILY@0630 [facility] Last Admin: 06/26/24 09:31 Dose: 20 mg Risperidone (Risperidone 3 Mg Tablet) 3 mg PO TID [facility] Simethicone (Simethicone 80 Mg Tab.Chew) 80 mg PO QIDWMHS PRN PRN Reason: Gas Thiamine HCl (Thiamine Hcl 100 Mg Tablet) 100 mg PO DAILY [facility] Last Admin: 06/26/24 09:31 Dose: 100 mg Tramadol HCl (Tramadol Hcl 50 Mg Tablet) 25 mg PO Q6H PRN PRN Reason: Pain, Moderate(Pain Scale 4-6) Trazodone HCl (Trazodone Hcl 100 Mg Tablet) 100 mg PO BEDTIME [facility] Last Admin: 06/25/24 20:16 Dose: 100 mg Allergies Allergies Allergy/AdvReac Type Severity Reaction Status Date / Time acetaminophen Allergy Unknown PANADOL = Verified 06/02/24 16:01 ACETAMINOPHEN SHELLFISH Allergy Mild PATIENT Uncoded 06/02/24 16:01 REPORTS BURNING SENSATION THROUGHOUT OPIATES Allergy Unknown BECAME Uncoded 06/02/24 16:01 ADDICTED PANADOL Allergy Unknown UNKNOWN Uncoded 06/02/24 16:01 Assessment & Plan Assessment & Plan (1) Schizoaffective disorder: Qualifiers: Schizoaffective disorder type: unspecified Qualified Code(s): F25.9 - Schizoaffective disorder, unspecified Status: Acute Code(s): F25.9 - Schizoaffective disorder, unspecified (2) Intellectual delay: Status: Acute Code(s): F81.9 - Developmental disorder of scholastic skills, unspecified (3) CAD (coronary artery disease): Status: Acute Code(s): I25.10 - Atherosclerotic heart disease of [place] coronary artery without angina pectoris Plan Patient 59 yr old Hungarian-speaking male with schizoaffective disorder, cognitive delay, who lives with his mother, recently discharged from on 05/20/2024 who presents via family for increased paranoia, anger and confusion. At last admission there was the thought that patient was not taking all of his medications, since the bulk of his Risperdal was prescribed at bedtime and the [facility] only came in the morning. During this last admission, Risperdal changed so that he was taking the bulk of it in the morning and with VNA, seems he is taking his medications. Despite this, family reports that his behaviors are worsening. On the unit he is friendly and calm; he is confused saying he wants to go see his children, caring a pillow in his arms and calling it his baby. Formulation/clinical reasoning: It is not clear what is causing decline given that he is most likely taking his medications regularly. Some speculation that he might be abusing substance when out and about in neighborhood however UDS is negative. Setting up family meeting to discuss. Hospital course: 06/05 Patient denies any AH to quality analyst/technical writer. Denies any SI or HI and says I never look for problems... I am never aggressive... I am good... Although he denies AH, patient says there is too much noise on the unit, and that people are touching his face. Earlier he had told another staff that he was having AH to hurt himself but that he was able to ignore. Patient denies any current drug use; he adds that he used to live on the streets but now he goes to yazidism. Content Curator asked about why he had been carrying a pillow around calling it his baby; patient did not really answer but said that he has a son and a granddaughter and that his is . Patient said he wanted to go home but then agreed to wait for meeting with outpatient staff this next Saturday. -patient does seem more confused than he did at last admission. Will increase Risperdal 06/08 Patient remains disorganized, able to be goal-directed on some topics such as wanting is close but otherwise trying to enter in any open door he sees and needing frequent redirection. SW and quality analyst/technical writer Discussed case with outpt team: SHIMA Ruby DDS Marlyn HOOVER No one is sure why patient has decompensated after decades of remaining stable on Risperdal. Says that for some reason this past month he has been more paranoid, more disorganized and when he returned from last admission he was not quite back to baseline. The past weeks patient was given away clothing on the street. This past admission was following patient argument with a neighbor. Apparently he had been peeking into this neighbor's window, scaring the neighbor and scared the neighbor's kids. They had a verbal altercation; staff arrived and patient kept saying he was going to go over to the neighbor's and take care of the neighbor... No actual threat was made and patient has no history of aggression but because of this he was taken to the hospital. Bret has discussed eviction of both patient and his elderly mother if behaviors continue. Team wondered if patient was not taking his medications however quality analyst/technical writer explained that the bulk of his medications were switched so the VNA was giving him the 3 mg of Risperdal out of the 3.5 total daily dose making this less likely the issue. They say at baseline he paces and is anxious but he pretty much make sense and though he may say some delusional things his conversations are overall able to remain grounded in reality. Discussed various options including temporary housing and likelihood that patient will at some point in the near future need some type of group living arrangement as his mother is elderly and with some dementia Unclear why patient has decompensated; Increased Risperdal to see if that can help. Thus far no clear organic etiology; will get additional labs to trying rule out other possible causes, including HIV and RPR, magnesium, B12/folate; will likely get head CT, though anticipate that results will be unremarkable. UDS was negative and UA showed no bacterial growth. Will try to get more collateral from family 06/09 Patient remains confused and disorganized, jumping from topic to topic. He agrees to remain to have meeting on Saturday but otherwise says he is missing home. Patient denies any chest pain but passes hard to say that he has a heart condition and has a surgically implanted mesh. Patient starts to cry and says that people are laughing at him that he can hear them doing so; he also said that a staff person's came in to his room last night and choked. Patient started taking should often group today. Looking for any organic contribution to patient's decompensation, however: labs thus far unremarkable; magnesium/calcium WNL; electrolytes WNL Chest x-ray pending Repeat UA unremarkable; no evidence of UTI -Head CT however did show evidence of Mild underlying microangiopathy Which could indicate vascular dementia as a possible contribution, which does seem to worsen in a stepwise fashion Will continue with current medication regimen; if no improvement will consider switching to Zyprexa which is on the [facility] order. 06/11 Patient remains disorganized, delusional. Content Curator another staff person saying it was his son; telling quality analyst/technical writer he is going up by quality analyst/technical writer a car, telling other staff members the same. Saying he has to go downstairs and feed the baby... Review of chart shows that patient has been getting Zyprexa p.r.n. consistently which seems to subdue patients agitation for a bit however but has thus far not helped resolve psychotic symptoms. -it is unlikely that is scheduling Zyprexa will make much difference says he has gotten significant doses over the past 5 days; will leave his p.r.n. for now; however will monitor how much antipsychotic patient is getting and lower p.r.n. availability to b.i.d.. -Reviewed recent EKG and QTc Int : 489 ms which is mildly prolonged; will monitor 06/07 total daily dose 5 mg 06/08 15 mg 06/09 10 mg 06/10 15 mg 06/11 5 mg 06/12 remains delusional, disorganized, intermittently intrusive with peers, sometimes a little aggressive with peers but remains redirectable. Considering maybe switching to Zyprexa since Risperdal isn't helping with psychosis and perhaps Zyprexa can subdue agitated behaviors -outpatient team came to visit and report patient is far from baseline at which he had been for a decade until about a month ago 06/13 Remains delusional, disorganized. A little more agitated and today went after peer (unprovoked) at the phone, then went after another peer. Staff able to redirect each time and pt willing to take medication. Will dc risperdal since not making any differnece will instead try zyprexa 5mg TID...as a prn, it's helped subdue agitated behavior, though has not yet reduced delusional thinking. 06/14 Last night patient continued to be aggressive towards peers, delusional; quality analyst/technical writer on-call and discussed with nurse and gave Ativan 2 mg to see if that could subdue behaviors, trying to avoid giving more antipsychotic. However he remained intrusive and agitated towards peers, a little more difficult to redirect and so Thorazine 50 mg p.o. given. -Today, Patient less agitated and has not been aggressive towards peers; a little more calm and though he remains disorganized, delusional, a little easier to extract oneself conversation -typically patient is not aggressive towards peers and hopefully these behaviors will resolve with switch to Zyprexa; however he remains very intrusive, going into people's rooms, hanging up telephone calls, constantly asking nonsensical questions and he remains at risk for provoking peers. Will continue to monitor behaviors towards others and will strongly consider transferring patient to Geriatric unit for his own safety. Content Curator was Considering that perhaps patient maybe having some manic behaviors and might benefit from Depakote however since there is some mild improvement will continue with Zyprexa t.i.d. dosing for now and monitor 06/15 Patient remains disorganized, intrusive and asks to go home. Patient agreed to sign 3 day notice. Collateral: Chris reports that about once a year, patient gets dysregulated for a few weeks to a month, goes to the hospital and then seems to go back to normal. He said it happened last summer around April or May during which time patient had similar behaviors. He was on his way to his day program but never made it, picked up by police disheveled, confused, no shoes, wet and disoriented. Was hospitalized. Chris reports that since then he has been back to his baseline until about a month ago. He reports that at the apartment he had a sudden change, disoriented, using bad words, saying bad things to the neighbors, giving way is close. Chris thinks that patient is getting a little better since this admission and it is overall less intense than last year. Shared some additional history, the patient was but no children; they years ago. Grew up going to a school for people with intellectual disability. 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 Did get involved in some drugs, cocaine and huffing on the streets in [place]; does not think much drug abuses happened here other than cannabis -Given collateral information clerk automobile [employer] again thinks that patient might benefit from Depakote since he he continues to have manic behaviors which per his brother, are episodic. 06/16 Starting Depakote; will continue with Zyprexa for now but will likely go back to Risperdal since it can be once a day dosing and seems to maintain patient for nearly a year in between manic episodes -discussed with patient need to remain on unit for medication, discussed diagnosis; patient continued to insist he wanted to go home and would not retract 3 day 06/17 continue tx. 3 day up tomorrow. 06/18 file for &06/19 continue tx. 06/20 ammonia high. will start lactulose and dc depakote. will switch back to risperidone with prn olanzapine. pending collateral from family. 06/21 continue tx. 06/22 ammonia back to normal. increase risperidone 2mg po TID. poor sleep. PLAN: 3 day notice Guardian; pt has given permission to talk with his family 1:1 for accidental intrusiveness to others and needing to be redirected Start Depakote Ir 250mg one time START Depakote ER 500mg qhs continue Zyprexa 5mg TID consider Depakote if aggressive behaviors return DC risperidone (was on 3 mg b.i.d. up from home dose which was a total daily dose of 3.5mg)) Mirtazapine 30 mg PO BEDTIME [facility] Benztropine Mesylate 0.5 mg PO BID [facility] Clonazepam 0.5 mg PO BID [facility] Lower PRN Zyprexa 5mg to BID (Zyprexa seems to help subdue agitation but not resolve psychosis; will lower dose available given mild prolongation of QTC) Omeprazole 20 mg PO DAILY@0630 [facility] Albuterol Sulfate 2 puff INHALE Q4H PRN Amlodipine Besylate 2.5 mg PO DAILY [facility]; Protocol Artificial Tears 1 drop EYE-BOTH Q4H PRN Aspirin 81 mg PO DAILY [facility] Atorvastatin Calcium 40 mg PO BEDTIME [facility] Ezetimibe 10 mg PO DAILY [facility] Ferrous Sulfate 324 mg PO DAILY [facility] Folic Acid 1 mg PO DAILY [facility] Hydroxyzine HCl 25 mg PO Q6H PRN Metoprolol Succinate 25 mg PO DAILY [facility]; Protocol Thiamine HCl 100 mg PO DAILY [facility] Trazodone HCl 100 mg PO BEDTIME [facility] effective to March 26, 2025: Risperdal up to 10mg daily (primary) Geodon up to 60mg daily Zyprexa up to 25mg daily later in evening pt complained of right sided chest pain; vitals WNL and pt not in any distress but given hx for CAD ordered EKG and trop On June 24 we are ordering for the next day Tegretol level CBC with differential and liver function panel. It came back on a therapeutic range. On June 26 we decided to increase Risperdal up to 3 mg p.o. t.i.d. total dose 9 mg a day to target psychosis since he still psychotic. On one-to-one Reason for continued inpatient stay Substantial Risk for: inability to function, rapid decompensation and med/psych decompensation Time Spent With Patient Time: Total time managing care of this patient today __20__ minutes.
[2024-06-26] MEDS: risperiDONE 3 MG TABLET PO ×2 (15:07→20:40)
[2024-06-26] MEDS: Simethicone 80 MG TAB.CHEW PO (15:07)
[2024-06-26] MEDS: Albuterol Sulfate 90 MCG 8 GM INHALER 2 PUFF INHALE (17:32)
[2024-06-26] MEDS: Artificial Tears 15 ML DROPS 1 DROP EYE-BOTH (17:32)
[2024-06-26 20:00] VITALS: BP 124/69; PULSE 86; RESP 18; TEMP 37.3; O2SAT 96
[2024-06-26] MEDS: Atorvastatin Calcium 40 MG TABLET PO (20:39)
[2024-06-26] MEDS: traZODone HCL 100 MG TABLET PO (20:40)
[2024-06-26] MEDS: traMADoL HCL 50 MG TABLET 25 MG PO (23:53)
--- NOTE | 2024-06-27 | ECG_ITS ---
Test Reason : Chest pain CAD Blood Pressure : / mmHG Vent. Rate : 082 BPM Atrial Rate : 082 BPM P-R Int : 142 ms QRS Dur : 084 ms QT Int : 376 ms P-R-T Axes : 056 068 068 degrees QTc Int : 439 ms Normal sinus rhythm Possible Inferior infarct (cited on or before 21-APR-2020) Abnormal ECG When compared with ECG of 23-JUN-2024 01:47, No significant change was found Referred By: Cordell Ferris Electronically Signed By:LUIS ANTONIO VAUGHN MD
[2024-06-27] MEDS: Omeprazole 20 MG CAPSULE.DR PO (06:48)
[2024-06-27 08:00] VITALS: BP 129/73; PULSE 78; RESP 18; TEMP 36.1; O2SAT 98
--- NOTE | 2024-06-27 08:49 | P.PNPSI_ITS ---
Subjective Subjective Date of Service: 06/27/24 Reason For Visit: Dysregulated Subjective Notes: Conditional Voluntary Interim History: The nursing staff reported the patient had been pleasant med compliant he slept well all last night. On interview the patient was asking if he was going to be discharged today, confused at times but redirectable. On one-to-one for safety. Mental Status Exam Mental Status Exam Patient Appearance: Appropriate Patient Orientation: Person and Situation Level of Consciousness: Awake and Restless Patient Behavior: Guarded and Passive Mood Description: Withdrawn Affect Description: Labile Patient Cognition Impaired: Yes Ability to Follow Directions: Good Speech Pattern: Clear Hallucinations: None Delusions: Paranoid Ideation and Ideas of Reference Thought Process: Illogical, Distracted and Slowed Thinking Thought Content: positive for Poverty of Content and positive for Thought Blocking Judgement: Poor Diagnostics Vital Signs (24Hr): Vital Signs - 24 hr 06/26/24 20:00 Temperature 99.1 F Pulse Rate 86 Respiratory Rate 18 Blood Pressure 124/69 Pulse Oximetry 96 Oxygen Delivery Method Room Air BMI result Body Mass Index 32.2 Labs 06/25/24 07:51 06/03/24 13:51 Imaging Radiology Impressions: ITS Impressions Chest X-Ray 06/09/24 10:55 IMPRESSION: No acute process. Mild hyperinflation. Head CT 06/09/24 11:20 IMPRESSION: 1. No evidence of acute intracranial hemorrhage or edematous territorial infarction. 2. Mild underlying microangiopathy. Chest X-Ray 06/23/24 01:45 IMPRESSION: Low lung volumes. Minimal scarring or atelectasis at the right lung base. No other significant abnormality seen. Medications Medications Current Medications Al Hydroxide/Mg Hydroxide (Magnesium Hydrox/Alum Hydrox 30 Ml Oral.Susp) 30 ml PO Q6H PRN PRN Reason: Heartburn/Nausea Last Admin: 06/24/24 22:33 Dose: 30 ml Albuterol Sulfate (Albuterol Sulfate 90 Mcg 8 Gm Inhaler) 2 puff INHALE Q4H PRN PRN Reason: Wheezing Last Admin: 06/26/24 17:32 Dose: 2 puff Amlodipine Besylate (Amlodipine Besylate 2.5 Mg Tablet) 2.5 mg PO DAILY [facility]; Protocol Last Admin: 06/26/24 09:29 Dose: 2.5 mg Artificial Tears (Artificial Tears 15 Ml Drops) 1 drop EYE-BOTH Q4H PRN PRN Reason: Dry Eyes Last Admin: 06/26/24 17:32 Dose: 1 drop Aspirin (Aspirin Enteric Coated 81 Mg Tablet.) 81 mg PO DAILY [facility] Last Admin: 06/26/24 09:29 Dose: 81 mg Atorvastatin Calcium (Atorvastatin Calcium 40 Mg Tablet) 40 mg PO BEDTIME [facility] Last Admin: 06/26/24 20:39 Dose: 40 mg Carbamazepine (Carbamazepine 200 Mg Tablet) 200 mg PO BID [facility] Last Admin: 06/26/24 20:40 Dose: 200 mg Clonazepam (Clonazepam 1 Mg Tablet) 1 mg PO BID [facility] Last Admin: 06/26/24 20:40 Dose: 1 mg Ezetimibe (Ezetimibe 10 Mg Tablet) 10 mg PO DAILY [facility] Last Admin: 06/26/24 09:29 Dose: 10 mg Famotidine (Famotidine 20 Mg Tablet) 20 mg PO DAILY [facility] Last Admin: 06/26/24 09:31 Dose: 20 mg Ferrous Sulfate (Ferrous Sulfate 324 Mg Tablet.) 324 mg PO DAILY [facility] Last Admin: 06/26/24 09:29 Dose: 324 mg Folic Acid (Folic Acid 1 Mg Tablet) 1 mg PO DAILY [facility] Last Admin: 06/26/24 09:29 Dose: 1 mg Hydroxyzine HCl (Hydroxyzine Hcl 25 Mg Tablet) 25 mg PO Q6H PRN PRN Reason: Anxiety Last Admin: 06/26/24 23:52 Dose: 25 mg Magnesium Hydroxide (Milk Of Magnesia 30 Ml Oral.Susp) 30 ml PO DAILY PRN PRN Reason: Constipation Last Admin: 06/24/24 16:04 Dose: 30 ml Metoprolol Succinate (Metoprolol Succinate Er 25 Mg Tab.Er.24h) 25 mg PO DAILY [facility]; Protocol Last Admin: 06/26/24 09:30 Dose: 25 mg Nicotine Polacrilex (Nicotine Polacrilex 2 Mg Gum) 4 mg BUCCAL Q2H PRN PRN Reason: Nicotine Cravings Last Admin: 06/26/24 17:32 Dose: 4 mg Nicotine Polacrilex (Nicotine Polacrilex 2 Mg Gum) 4 mg BUCCAL Q2H PRN PRN Reason: Nicotine Cravings Last Admin: 06/05/24 21:42 Dose: 4 mg Olanzapine (Olanzapine 10 Mg Tablet) 10 mg PO Q6H PRN PRN Reason: psychosis, agitation Last Admin: 06/26/24 23:56 Dose: 10 mg Omeprazole (Omeprazole 20 Mg Capsule.Dr) 20 mg PO DAILY@0630 [facility] Last Admin: 06/27/24 06:48 Dose: 20 mg Risperidone (Risperidone 3 Mg Tablet) 3 mg PO TID [facility] Last Admin: 06/26/24 20:40 Dose: 3 mg Simethicone (Simethicone 80 Mg Tab.Chew) 80 mg PO QIDWMHS PRN PRN Reason: Gas Last Admin: 06/26/24 15:07 Dose: 80 mg Thiamine HCl (Thiamine Hcl 100 Mg Tablet) 100 mg PO DAILY [facility] Last Admin: 06/26/24 09:31 Dose: 100 mg Tramadol HCl (Tramadol Hcl 50 Mg Tablet) 25 mg PO Q6H PRN PRN Reason: Pain, Moderate(Pain Scale 4-6) Last Admin: 06/26/24 23:53 Dose: 25 mg Trazodone HCl (Trazodone Hcl 100 Mg Tablet) 100 mg PO BEDTIME [facility] Last Admin: 06/26/24 20:40 Dose: 100 mg Allergies Allergies Allergy/AdvReac Type Severity Reaction Status Date / Time acetaminophen Allergy Unknown PANADOL = Verified 06/02/24 16:01 ACETAMINOPHEN SHELLFISH Allergy Mild PATIENT Uncoded 06/02/24 16:01 REPORTS BURNING SENSATION THROUGHOUT OPIATES Allergy Unknown BECAME Uncoded 06/02/24 16:01 ADDICTED PANADOL Allergy Unknown UNKNOWN Uncoded 06/02/24 16:01 Assessment & Plan Assessment & Plan (1) Schizoaffective disorder: Qualifiers: Schizoaffective disorder type: unspecified Qualified Code(s): F25.9 - Schizoaffective disorder, unspecified Status: Acute Code(s): F25.9 - Schizoaffective disorder, unspecified (2) Intellectual delay: Status: Acute Code(s): F81.9 - Developmental disorder of scholastic skills, unspecified (3) CAD (coronary artery disease): Status: Acute Code(s): I25.10 - Atherosclerotic heart disease of [place] coronary artery without angina pectoris Plan Patient 59 yr old Malagasy-speaking male with schizoaffective disorder, cognitive delay, who lives with his mother, recently discharged from on 05/20/2024 who presents via family for increased paranoia, anger and confusion. At last admission there was the thought that patient was not taking all of his medications, since the bulk of his Risperdal was prescribed at bedtime and the [facility] only came in the morning. During this last admission, Risperdal changed so that he was taking the bulk of it in the morning and with VNA, seems he is taking his medications. Despite this, family reports that his behaviors are worsening. On the unit he is friendly and calm; he is confused saying he wants to go see his children, caring a pillow in his arms and calling it his baby. Formulation/clinical reasoning: It is not clear what is causing decline given that he is most likely taking his medications regularly. Some speculation that he might be abusing substance when out and about in neighborhood however UDS is negative. Setting up family meeting to discuss. Hospital course: 06/05 Patient denies any AH to sign writer letterer or painter. Denies any SI or HI and says I never look for problems... I am never aggressive... I am good... Although he denies AH, patient says there is too much noise on the unit, and that people are touching his face. Earlier he had told another staff that he was having AH to hurt himself but that he was able to ignore. Patient denies any current drug use; he adds that he used to live on the streets but now he goes to faith. Substation Inspector asked about why he had been carrying a pillow around calling it his baby; patient did not really answer but said that he has a son and a granddaughter and that his is . Patient said he wanted to go home but then agreed to wait for meeting with outpatient staff this next Saturday. -patient does seem more confused than he did at last admission. Will increase Risperdal 06/08 Patient remains disorganized, able to be goal-directed on some topics such as wanting is close but otherwise trying to enter in any open door he sees and needing frequent redirection. SW and sign writer letterer or painter Discussed case with outpt team: SHIMA Ruby DDS Marlyn HOOVER No one is sure why patient has decompensated after decades of remaining stable on Risperdal. Says that for some reason this past month he has been more paranoid, more disorganized and when he returned from last admission he was not quite back to baseline. The past weeks patient was given away clothing on the street. This past admission was following patient argument with a neighbor. Apparently he had been peeking into this neighbor's window, scaring the neighbor and scared the neighbor's kids. They had a verbal altercation; staff arrived and patient kept saying he was going to go over to the neighbor's and take care of the neighbor... No actual threat was made and patient has no history of aggression but because of this he was taken to the hospital. Bret has discussed eviction of both patient and his elderly mother if behaviors continue. Team wondered if patient was not taking his medications however sign writer letterer or painter explained that the bulk of his medications were switched so the VNA was giving him the 3 mg of Risperdal out of the 3.5 total daily dose making this less likely the issue. They say at baseline he paces and is anxious but he pretty much make sense and though he may say some delusional things his conversations are overall able to remain grounded in reality. Discussed various options including temporary housing and likelihood that patient will at some point in the near future need some type of group living arrangement as his mother is elderly and with some dementia Unclear why patient has decompensated; Increased Risperdal to see if that can help. Thus far no clear organic etiology; will get additional labs to trying rule out other possible causes, including HIV and RPR, magnesium, B12/folate; will likely get head CT, though anticipate that results will be unremarkable. UDS was negative and UA showed no bacterial growth. Will try to get more collateral from family 06/09 Patient remains confused and disorganized, jumping from topic to topic. He agrees to remain to have meeting on Saturday but otherwise says he is missing home. Patient denies any chest pain but passes hard to say that he has a heart condition and has a surgically implanted mesh. Patient starts to cry and says that people are laughing at him that he can hear them doing so; he also said that a staff person's came in to his room last night and choked. Patient started taking should often group today. Looking for any organic contribution to patient's decompensation, however: labs thus far unremarkable; magnesium/calcium WNL; electrolytes WNL Chest x-ray pending Repeat UA unremarkable; no evidence of UTI -Head CT however did show evidence of Mild underlying microangiopathy Which could indicate vascular dementia as a possible contribution, which does seem to worsen in a stepwise fashion Will continue with current medication regimen; if no improvement will consider switching to Zyprexa which is on the [facility] order. 06/11 Patient remains disorganized, delusional. Substation Inspector another staff person saying it was his son; telling sign writer letterer or painter he is going up by sign writer letterer or painter a car, telling other staff members the same. Saying he has to go downstairs and feed the baby... Review of chart shows that patient has been getting Zyprexa p.r.n. consistently which seems to subdue patients agitation for a bit however but has thus far not helped resolve psychotic symptoms. -it is unlikely that is scheduling Zyprexa will make much difference says he has gotten significant doses over the past 5 days; will leave his p.r.n. for now; however will monitor how much antipsychotic patient is getting and lower p.r.n. availability to b.i.d.. -Reviewed recent EKG and QTc Int : 489 ms which is mildly prolonged; will monitor 06/07 total daily dose 5 mg 06/08 15 mg 06/09 10 mg 06/10 15 mg 06/11 5 mg 06/12 remains delusional, disorganized, intermittently intrusive with peers, sometimes a little aggressive with peers but remains redirectable. Considering maybe switching to Zyprexa since Risperdal isn't helping with psychosis and perhaps Zyprexa can subdue agitated behaviors -outpatient team came to visit and report patient is far from baseline at which he had been for a decade until about a month ago 06/13 Remains delusional, disorganized. A little more agitated and today went after peer (unprovoked) at the phone, then went after another peer. Staff able to redirect each time and pt willing to take medication. Will dc risperdal since not making any differnece will instead try zyprexa 5mg TID...as a prn, it's helped subdue agitated behavior, though has not yet reduced delusional thinking. 06/14 Last night patient continued to be aggressive towards peers, delusional; sign writer letterer or painter on-call and discussed with nurse and gave Ativan 2 mg to see if that could subdue behaviors, trying to avoid giving more antipsychotic. However he remained intrusive and agitated towards peers, a little more difficult to redirect and so Thorazine 50 mg p.o. given. -Today, Patient less agitated and has not been aggressive towards peers; a little more calm and though he remains disorganized, delusional, a little easier to extract oneself conversation -typically patient is not aggressive towards peers and hopefully these behaviors will resolve with switch to Zyprexa; however he remains very intrusive, going into people's rooms, hanging up telephone calls, constantly asking nonsensical questions and he remains at risk for provoking peers. Will continue to monitor behaviors towards others and will strongly consider transferring patient to Geriatric unit for his own safety. Substation Inspector was Considering that perhaps patient maybe having some manic behaviors and might benefit from Depakote however since there is some mild improvement will continue with Zyprexa t.i.d. dosing for now and monitor 06/15 Patient remains disorganized, intrusive and asks to go home. Patient agreed to sign 3 day notice. Collateral: Chris reports that about once a year, patient gets dysregulated for a few weeks to a month, goes to the hospital and then seems to go back to normal. He said it happened last summer around April or May during which time patient had similar behaviors. He was on his way to his day program but never made it, picked up by police disheveled, confused, no shoes, wet and disoriented. Was hospitalized. Chris reports that since then he has been back to his baseline until about a month ago. He reports that at the apartment he had a sudden change, disoriented, using bad words, saying bad things to the neighbors, giving way is close. Chris thinks that patient is getting a little better since this admission and it is overall less intense than last year. Shared some additional history, the patient was but no children; they years ago. Grew up going to a school for people with intellectual disability. 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 Did get involved in some drugs, cocaine and huffing on the streets in [place]; does not think much drug abuses happened here other than cannabis -Given collateral geographic information systems director again thinks that patient might benefit from Depakote since he he continues to have manic behaviors which per his brother, are episodic. 06/16 Starting Depakote; will continue with Zyprexa for now but will likely go back to Risperdal since it can be once a day dosing and seems to maintain patient for nearly a year in between manic episodes -discussed with patient need to remain on unit for medication, discussed diagnosis; patient continued to insist he wanted to go home and would not retract 3 day 06/17 continue tx. 3 day up tomorrow. 06/18 file for 06/19 continue tx. 06/20 ammonia high. will start lactulose and dc depakote. will switch back to risperidone with prn olanzapine. pending collateral from family. 06/21 continue tx. 06/22 ammonia back to normal. increase risperidone 2mg po TID. poor sleep. PLAN: 3 day notice Guardian; pt has given permission to talk with his family 1:1 for accidental intrusiveness to others and needing to be redirected Start Depakote Ir 250mg one time START Depakote ER 500mg qhs continue Zyprexa 5mg TID consider Depakote if aggressive behaviors return DC risperidone (was on 3 mg b.i.d. up from home dose which was a total daily dose of 3.5mg)) Mirtazapine 30 mg PO BEDTIME [facility] Benztropine Mesylate 0.5 mg PO BID [facility] Clonazepam 0.5 mg PO BID [facility] Lower PRN Zyprexa 5mg to BID (Zyprexa seems to help subdue agitation but not resolve psychosis; will lower dose available given mild prolongation of QTC) Omeprazole 20 mg PO DAILY@0630 [facility] Albuterol Sulfate 2 puff INHALE Q4H PRN Amlodipine Besylate 2.5 mg PO DAILY [facility]; Protocol Artificial Tears 1 drop EYE-BOTH Q4H PRN Aspirin 81 mg PO DAILY [facility] Atorvastatin Calcium 40 mg PO BEDTIME [facility] Ezetimibe 10 mg PO DAILY [facility] Ferrous Sulfate 324 mg PO DAILY [facility] Folic Acid 1 mg PO DAILY [facility] Hydroxyzine HCl 25 mg PO Q6H PRN Metoprolol Succinate 25 mg PO DAILY [facility]; Protocol Thiamine HCl 100 mg PO DAILY [facility] Trazodone HCl 100 mg PO BEDTIME [facility] effective to March 26, 2025: Risperdal up to 10mg daily (primary) Geodon up to 60mg daily Zyprexa up to 25mg daily later in evening pt complained of right sided chest pain; vitals WNL and pt not in any distress but given hx for CAD ordered EKG and trop On June 24 we are ordering for the next day Tegretol level CBC with differential and liver function panel. It came back on a therapeutic range. On June 26 we decided to increase Risperdal up to 3 mg p.o. t.i.d. total dose 9 mg a day to target psychosis since he still psychotic. On one-to-one Reason for continued inpatient stay Substantial Risk for: inability to function, rapid decompensation and med/psych decompensation Time Spent With Patient Time: Total time managing care of this patient today __20__ minutes.
[2024-06-27 09:12] VITALS: BP 129/73; PULSE 78
[2024-06-27] MEDS: Ferrous Sulfate 324 MG TABLET.DR PO (09:12)
[2024-06-27] MEDS: Aspirin Enteric Coated 81 MG TABLET.DR PO (09:12)
[2024-06-27] MEDS: Metoprolol Succinate ER 25 MG TAB.ER.24H PO (09:12)
[2024-06-27 09:13] VITALS: BP 129/73
[2024-06-27] MEDS: amLODIPine Besylate 2.5 MG TABLET PO (09:13)
[2024-06-27] MEDS: Ezetimibe 10 MG TABLET PO (09:13)
[2024-06-27] MEDS: carBAMazepine 200 MG TABLET PO ×2 (09:13→21:15)
[2024-06-27] MEDS: Thiamine HCL 100 MG TABLET PO (09:13)
[2024-06-27] MEDS: Famotidine 20 MG TABLET PO (09:13)
[2024-06-27] MEDS: clonazePAM 1 MG TABLET PO ×2 (09:13→21:15)
[2024-06-27] MEDS: Folic Acid 1 MG TABLET PO (09:14)
[2024-06-27] MEDS: risperiDONE 3 MG TABLET PO ×3 (09:14→21:15)
[2024-06-27] MEDS: Artificial Tears 15 ML DROPS 1 DROP EYE-BOTH (11:44)
[2024-06-27] MEDS: Nicotine Polacrilex 2 MG GUM 4 MG BUCCAL (12:05)
--- NOTE | 2024-06-27 19:29 | PC.NURSE ---
Pt c/o chest pain at 7PM, VS: 127/75, p 77,T 97.8, O2sat 97% on RA. will call order clerk provider notified. New order for EKG.
[2024-06-27 20:00] VITALS: BP 132/64; PULSE 77; RESP 18; TEMP 37.3; O2SAT 97
[2024-06-27] MEDS: traZODone HCL 100 MG TABLET PO (21:15)
[2024-06-27] MEDS: hydrOXYzine HCL 25 MG TABLET PO (21:15)
[2024-06-27] MEDS: Atorvastatin Calcium 40 MG TABLET PO (21:15)
[2024-06-28] MEDS: Omeprazole 20 MG CAPSULE.DR PO (06:49)
[2024-06-28] MEDS: Albuterol Sulfate 90 MCG 8 GM INHALER 2 PUFF INHALE (07:43)
[2024-06-28 07:53] VITALS: BP 138/69; PULSE 88; RESP 18; TEMP 36.4; O2SAT 95
[2024-06-28] MEDS: carBAMazepine 200 MG TABLET PO ×2 (07:57→20:18)
[2024-06-28] MEDS: amLODIPine Besylate 2.5 MG TABLET PO (07:57)
[2024-06-28] MEDS: Ferrous Sulfate 324 MG TABLET.DR PO (07:57)
[2024-06-28] MEDS: Thiamine HCL 100 MG TABLET PO (07:57)
[2024-06-28] MEDS: clonazePAM 1 MG TABLET PO ×2 (07:57→20:18)
[2024-06-28] MEDS: Folic Acid 1 MG TABLET PO (07:57)
[2024-06-28] MEDS: OLANZapine 10 MG TABLET PO ×2 (07:57→20:17)
[2024-06-28] MEDS: risperiDONE 3 MG TABLET PO ×3 (07:57→20:18)
[2024-06-28] MEDS: Famotidine 20 MG TABLET PO (07:57)
[2024-06-28] MEDS: Aspirin Enteric Coated 81 MG TABLET.DR PO (07:57)
[2024-06-28] MEDS: Ezetimibe 10 MG TABLET PO (07:57)
[2024-06-28] MEDS: Metoprolol Succinate ER 25 MG TAB.ER.24H PO (07:58)
[2024-06-28] MEDS: Nicotine Polacrilex 2 MG GUM 4 MG BUCCAL ×2 (07:58→12:22)
[2024-06-28] MEDS: traMADoL HCL 50 MG TABLET 25 MG PO ×2 (07:58→20:16)
--- NOTE | 2024-06-28 08:24 | HO.PSYCHPN ---
Subjective Subjective Date of Service: 06/28/24 Reason For Visit: Dysregulated Subjective Notes: Conditional Voluntary Guardianship: Yes Interim History: The nursing staff reported the patient slept well all last night, he had been compliant with his medications. Yesterday he complained of chest pain but his EKG did not show any changes. The staff has noticed that the patient has lactose intolerance and he had been having gas whenever he eats ice cream. On interview the patient stated that he wants to go back home to his family. Compliant and pleasant. Mental Status Exam Mental Status Exam Patient Appearance: Appropriate Patient Orientation: Person and Situation Level of Consciousness: Awake Patient Behavior: Passive Mood Description: Withdrawn Affect Description: Labile Patient Cognition Impaired: Yes Ability to Follow Directions: Good Speech Pattern: Spontaneous Speech Hallucinations: None Delusions: Paranoid Ideation and Ideas of Reference Thought Process: Distracted and Slowed Thinking Thought Content: positive for [place] and positive for Poverty of Content Judgement: Poor Diagnostics Vital Signs (24Hr): Vital Signs - 24 hr 06/27/24 09:12 06/27/24 09:13 06/27/24 20:00 Temperature 99.1 F Pulse Rate 78 77 Respiratory Rate 18 Blood Pressure 129/73 129/73 132/64 Pulse Oximetry 97 Oxygen Delivery Method Room Air 06/28/24 07:53 Temperature 97.6 F Pulse Rate 88 Respiratory Rate 18 Blood Pressure 138/69 Pulse Oximetry 95 Oxygen Delivery Method Room Air BMI result Body Mass Index 32.2 Labs 06/25/24 07:51 06/03/24 13:51 Imaging Radiology Impressions: ITS Impressions Chest X-Ray 06/09/24 10:55 IMPRESSION: No acute process. Mild hyperinflation. Head CT 06/09/24 11:20 IMPRESSION: 1. No evidence of acute intracranial hemorrhage or edematous territorial infarction. 2. Mild underlying microangiopathy. Chest X-Ray 06/23/24 01:45 IMPRESSION: Low lung volumes. Minimal scarring or atelectasis at the right lung base. No other significant abnormality seen. Medications Medications Current Medications Al Hydroxide/Mg Hydroxide (Magnesium Hydrox/Alum Hydrox 30 Ml Oral.Susp) 30 ml PO Q6H PRN PRN Reason: Heartburn/Nausea Last Admin: 06/24/24 22:33 Dose: 30 ml Albuterol Sulfate (Albuterol Sulfate 90 Mcg 8 Gm Inhaler) 2 puff INHALE Q4H PRN PRN Reason: Wheezing Last Admin: 06/28/24 07:43 Dose: 2 puff Amlodipine Besylate (Amlodipine Besylate 2.5 Mg Tablet) 2.5 mg PO DAILY [facility]; Protocol Last Admin: 06/28/24 07:57 Dose: 2.5 mg Artificial Tears (Artificial Tears 15 Ml Drops) 1 drop EYE-BOTH Q4H PRN PRN Reason: Dry Eyes Last Admin: 06/27/24 11:44 Dose: 1 drop Aspirin (Aspirin Enteric Coated 81 Mg Tablet.) 81 mg PO DAILY [facility] Last Admin: 06/28/24 07:57 Dose: 81 mg Atorvastatin Calcium (Atorvastatin Calcium 40 Mg Tablet) 40 mg PO BEDTIME [facility] Last Admin: 06/27/24 21:15 Dose: 40 mg Carbamazepine (Carbamazepine 200 Mg Tablet) 200 mg PO BID [facility] Last Admin: 06/28/24 07:57 Dose: 200 mg Clonazepam (Clonazepam 1 Mg Tablet) 1 mg PO BID [facility] Last Admin: 06/28/24 07:57 Dose: 1 mg Ezetimibe (Ezetimibe 10 Mg Tablet) 10 mg PO DAILY [facility] Last Admin: 06/28/24 07:57 Dose: 10 mg Famotidine (Famotidine 20 Mg Tablet) 20 mg PO DAILY [facility] Last Admin: 06/28/24 07:57 Dose: 20 mg Ferrous Sulfate (Ferrous Sulfate 324 Mg Tablet.Dr) 324 mg PO DAILY [facility] Last Admin: 06/28/24 07:57 Dose: 324 mg Folic Acid (Folic Acid 1 Mg Tablet) 1 mg PO DAILY [facility] Last Admin: 06/28/24 07:57 Dose: 1 mg Hydroxyzine HCl (Hydroxyzine Hcl 25 Mg Tablet) 25 mg PO Q6H PRN PRN Reason: Anxiety Last Admin: 06/27/24 21:15 Dose: 25 mg Magnesium Hydroxide (Milk Of Magnesia 30 Ml Oral.Susp) 30 ml PO DAILY PRN PRN Reason: Constipation Last Admin: 06/24/24 16:04 Dose: 30 ml Metoprolol Succinate (Metoprolol Succinate Er 25 Mg Tab.Er.24h) 25 mg PO DAILY [facility]; Protocol Last Admin: 06/28/24 07:58 Dose: 25 mg Nicotine Polacrilex (Nicotine Polacrilex 2 Mg Gum) 4 mg BUCCAL Q2H PRN PRN Reason: Nicotine Cravings Last Admin: 06/28/24 07:58 Dose: 4 mg Nicotine Polacrilex (Nicotine Polacrilex 2 Mg Gum) 4 mg BUCCAL Q2H PRN PRN Reason: Nicotine Cravings Last Admin: 06/05/24 21:42 Dose: 4 mg Olanzapine (Olanzapine 10 Mg Tablet) 10 mg PO Q6H PRN PRN Reason: psychosis, agitation Last Admin: 06/28/24 07:57 Dose: 10 mg Omeprazole (Omeprazole 20 Mg Capsule.Dr) 20 mg PO DAILY@0630 [facility] Last Admin: 06/28/24 06:49 Dose: 20 mg Risperidone (Risperidone 3 Mg Tablet) 3 mg PO TID [facility] Last Admin: 06/28/24 07:57 Dose: 3 mg Simethicone (Simethicone 80 Mg Tab.Chew) 80 mg PO QIDWMHS PRN PRN Reason: Gas Last Admin: 06/26/24 15:07 Dose: 80 mg Thiamine HCl (Thiamine Hcl 100 Mg Tablet) 100 mg PO DAILY [facility] Last Admin: 06/28/24 07:57 Dose: 100 mg Tramadol HCl (Tramadol Hcl 50 Mg Tablet) 25 mg PO Q6H PRN PRN Reason: Pain, Moderate(Pain Scale 4-6) Last Admin: 06/28/24 07:58 Dose: 25 mg Trazodone HCl (Trazodone Hcl 100 Mg Tablet) 100 mg PO BEDTIME [facility] Last Admin: 06/27/24 21:15 Dose: 100 mg Allergies Allergies Allergy/AdvReac Type Severity Reaction Status Date / Time acetaminophen Allergy Unknown PANADOL = Verified 06/02/24 16:01 ACETAMINOPHEN SHELLFISH Allergy Mild PATIENT Uncoded 06/02/24 16:01 REPORTS BURNING SENSATION THROUGHOUT OPIATES Allergy Unknown BECAME Uncoded 06/02/24 16:01 ADDICTED PANADOL Allergy Unknown UNKNOWN Uncoded 06/02/24 16:01 Assessment & Plan Assessment & Plan (1) Schizoaffective disorder: Qualifiers: Schizoaffective disorder type: unspecified Qualified Code(s): F25.9 - Schizoaffective disorder, unspecified Status: Acute Code(s): F25.9 - Schizoaffective disorder, unspecified (2) Intellectual delay: Status: Acute Code(s): F81.9 - Developmental disorder of scholastic skills, unspecified (3) CAD (coronary artery disease): Status: Acute Code(s): I25.10 - Atherosclerotic heart disease of jamul coronary artery without angina pectoris Plan Patient 59 yr old Indonesian-speaking male with schizoaffective disorder, cognitive delay, who lives with his mother, recently discharged from on 05/20/2024 who presents via family for increased paranoia, anger and confusion. At last admission there was the thought that patient was not taking all of his medications, since the bulk of his Risperdal was prescribed at bedtime and the [facility] only came in the morning. During this last admission, Risperdal changed so that he was taking the bulk of it in the morning and with VNA, seems he is taking his medications. Despite this, family reports that his behaviors are worsening. On the unit he is friendly and calm; he is confused saying he wants to go see his children, caring a pillow in his arms and calling it his baby. Formulation/clinical reasoning: It is not clear what is causing decline given that he is most likely taking his medications regularly. Some speculation that he might be abusing substance when out and about in neighborhood however UDS is negative. Setting up family meeting to discuss. Hospital course: 06/05 Patient denies any AH to technical writer and editor. Denies any SI or HI and says I never look for problems... I am never aggressive... I am good... Although he denies AH, patient says there is too much noise on the unit, and that people are touching his face. Earlier he had told another staff that he was having AH to hurt himself but that he was able to ignore. Patient denies any current drug use; he adds that he used to live on the streets but now he goes to latter-day. Mid Teacher asked about why he had been carrying a pillow around calling it his baby; patient did not really answer but said that he has a son and a granddaughter and that his is . Patient said he wanted to go home but then agreed to wait for meeting with outpatient staff this next Saturday. -patient does seem more confused than he did at last admission. Will increase Risperdal 06/08 Patient remains disorganized, able to be goal-directed on some topics such as wanting is close but otherwise trying to enter in any open door he sees and needing frequent redirection. SW and technical writer and editor Discussed case with outpt team: Efraín Gray, DDS Nimisha Glaser DDS Marlyn Brennan [place] No one is sure why patient has decompensated after decades of remaining stable on Risperdal. Says that for some reason this past month he has been more paranoid, more disorganized and when he returned from last admission he was not quite back to baseline. The past weeks patient was given away clothing on the street. This past admission was following patient argument with a neighbor. Apparently he had been peeking into this neighbor's window, scaring the neighbor and scared the neighbor's kids. They had a verbal altercation; staff arrived and patient kept saying he was going to go over to the neighbor's and take care of the neighbor... No actual threat was made and patient has no history of aggression but because of this he was taken to the hospital. Bret has discussed eviction of both patient and his elderly mother if behaviors continue. Team wondered if patient was not taking his medications however technical writer and editor explained that the bulk of his medications were switched so the [facility]NA was giving him the 3 mg of Risperdal out of the 3.5 total daily dose making this less likely the issue. They say at baseline he paces and is anxious but he pretty much make sense and though he may say some delusional things his conversations are overall able to remain grounded in reality. Discussed various options including temporary housing and likelihood that patient will at some point in the near future need some type of group living arrangement as his mother is elderly and with some dementia Unclear why patient has decompensated; Increased Risperdal to see if that can help. Thus far no clear organic etiology; will get additional labs to trying rule out other possible causes, including HIV and RPR, magnesium, B12/folate; will likely get head CT, though anticipate that results will be unremarkable. UDS was negative and UA showed no bacterial growth. Will try to get more collateral from family 06/09 Patient remains confused and disorganized, jumping from topic to topic. He agrees to remain to have meeting on Saturday but otherwise says he is missing home. Patient denies any chest pain but passes hard to say that he has a heart condition and has a surgically implanted mesh. Patient starts to cry and says that people are laughing at him that he can hear them doing so; he also said that a staff person's came in to his room last night and choked. Patient started taking should often group today. Looking for any organic contribution to patient's decompensation, however: labs thus far unremarkable; magnesium/calcium WNL; electrolytes WNL Chest x-ray pending Repeat UA unremarkable; no evidence of UTI -Head CT however did show evidence of Mild underlying microangiopathy Which could indicate vascular dementia as a possible contribution, which does seem to worsen in a stepwise fashion Will continue with current medication regimen; if no improvement will consider switching to Zyprexa which is on the [facility] order. 06/11 Patient remains disorganized, delusional. Mid Teacher another staff person saying it was his son; telling technical writer and editor he is going up by technical writer and editor a car, telling other staff members the same. Saying he has to go downstairs and feed the baby... Review of chart shows that patient has been getting Zyprexa p.r.n. consistently which seems to subdue patients agitation for a bit however but has thus far not helped resolve psychotic symptoms. -it is unlikely that is scheduling Zyprexa will make much difference says he has gotten significant doses over the past 5 days; will leave his p.r.n. for now; however will monitor how much antipsychotic patient is getting and lower p.r.n. availability to b.i.d.. -Reviewed recent EKG and QTc Int : 489 ms which is mildly prolonged; will monitor 06/07 total daily dose 5 mg 06/08 15 mg 06/09 10 mg 06/10 15 mg 06/11 5 mg 06/12 remains delusional, disorganized, intermittently intrusive with peers, sometimes a little aggressive with peers but remains redirectable. Considering maybe switching to Zyprexa since Risperdal isn't helping with psychosis and perhaps Zyprexa can subdue agitated behaviors -outpatient team came to visit and report patient is far from baseline at which he had been for a decade until about a month ago 06/13 Remains delusional, disorganized. A little more agitated and today went after peer (unprovoked) at the phone, then went after another peer. Staff able to redirect each time and pt willing to take medication. Will dc risperdal since not making any differnece will instead try zyprexa 5mg TID...as a prn, it's helped subdue agitated behavior, though has not yet reduced delusional thinking. 06/14 Last night patient continued to be aggressive towards peers, delusional; technical writer and editor on-call and discussed with nurse and gave Ativan 2 mg to see if that could subdue behaviors, trying to avoid giving more antipsychotic. However he remained intrusive and agitated towards peers, a little more difficult to redirect and so Thorazine 50 mg p.o. given. -Today, Patient less agitated and has not been aggressive towards peers; a little more calm and though he remains disorganized, delusional, a little easier to extract oneself conversation -typically patient is not aggressive towards peers and hopefully these behaviors will resolve with switch to Zyprexa; however he remains very intrusive, going into people's rooms, hanging up telephone calls, constantly asking nonsensical questions and he remains at risk for provoking peers. Will continue to monitor behaviors towards others and will strongly consider transferring patient to Geriatric unit for his own safety. Mid Teacher was Considering that perhaps patient maybe having some manic behaviors and might benefit from Depakote however since there is some mild improvement will continue with Zyprexa t.i.d. dosing for now and monitor 06/15 Patient remains disorganized, intrusive and asks to go home. Patient agreed to sign 3 day notice. Collateral: Chris reports that about once a year, patient gets dysregulated for a few weeks to a month, goes to the hospital and then seems to go back to normal. He said it happened last summer around April or May during which time patient had similar behaviors. He was on his way to his day program but never made it, picked up by police disheveled, confused, no shoes, wet and disoriented. Was hospitalized. Chris reports that since then he has been back to his baseline until about a month ago. He reports that at the apartment he had a sudden change, disoriented, using bad words, saying bad things to the neighbors, giving way is close. Chris thinks that patient is getting a little better since this admission and it is overall less intense than last year. Shared some additional history, the patient was but no children; they years ago. Grew up going to a school for people with intellectual disability. 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 Did get involved in some drugs, cocaine and huffing on the streets in [place]; does not think much drug abuses happened here other than cannabis -Given collateral visitor information assistant again thinks that patient might benefit from Depakote since he he continues to have manic behaviors which per his brother, are episodic. 06/16 Starting Depakote; will continue with Zyprexa for now but will likely go back to Risperdal since it can be once a day dosing and seems to maintain patient for nearly a year in between manic episodes -discussed with patient need to remain on unit for medication, discussed diagnosis; patient continued to insist he wanted to go home and would not retract 3 day 06/17 continue tx. 3 day up tomorrow. 06/18 file for 06/19 continue tx. 06/20 ammonia high. will start lactulose and dc depakote. will switch back to risperidone with prn olanzapine. pending collateral from family. 06/21 continue tx. 06/22 ammonia back to normal. increase risperidone 2mg po TID. poor sleep. PLAN: 3 day notice Guardian; pt has given permission to talk with his family 1:1 for accidental intrusiveness to others and needing to be redirected Start Depakote Ir 250mg one time START Depakote ER 500mg qhs continue Zyprexa 5mg TID consider Depakote if aggressive behaviors return DC risperidone (was on 3 mg b.i.d. up from home dose which was a total daily dose of 3.5mg)) Mirtazapine 30 mg PO BEDTIME [facility] Benztropine Mesylate 0.5 mg PO BID [facility] Clonazepam 0.5 mg PO BID [facility] Lower PRN Zyprexa 5mg to BID (Zyprexa seems to help subdue agitation but not resolve psychosis; will lower dose available given mild prolongation of QTC) Omeprazole 20 mg PO DAILY@0630 [facility] Albuterol Sulfate 2 puff INHALE Q4H PRN Amlodipine Besylate 2.5 mg PO DAILY [facility]; Protocol Artificial Tears 1 drop EYE-BOTH Q4H PRN Aspirin 81 mg PO DAILY [facility] Atorvastatin Calcium 40 mg PO BEDTIME [facility] Ezetimibe 10 mg PO DAILY [facility] Ferrous Sulfate 324 mg PO DAILY [facility] Folic Acid 1 mg PO DAILY [facility] Hydroxyzine HCl 25 mg PO Q6H PRN Metoprolol Succinate 25 mg PO DAILY [facility]; Protocol Thiamine HCl 100 mg PO DAILY [facility] Trazodone HCl 100 mg PO BEDTIME [facility] effective to March 26, 2025: Risperdal up to 10mg daily (primary) Geodon up to 60mg daily Zyprexa up to 25mg daily later in evening pt complained of right sided chest pain; vitals WNL and pt not in any distress but given hx for CAD ordered EKG and trop On June 24 we are ordering for the next day Tegretol level CBC with differential and liver function panel. It came back on a therapeutic range. On June 26 we decided to increase Risperdal up to 3 mg p.o. t.i.d. total dose 9 mg a day to target psychosis since he still psychotic. On one-to-one Reason for continued inpatient stay Substantial Risk for: inability to function, rapid decompensation and med/psych decompensation Time Spent With Patient Time: Total time managing care of this patient today __20__ minutes.
[2024-06-28] MEDS: Artificial Tears 15 ML DROPS 1 DROP EYE-BOTH ×2 (11:32→17:00)
[2024-06-28 20:00] VITALS: BP 112/68; PULSE 75; RESP 16; TEMP 35.8; O2SAT 98
[2024-06-28] MEDS: Atorvastatin Calcium 40 MG TABLET PO (20:17)
[2024-06-28] MEDS: traZODone HCL 100 MG TABLET PO (20:18)
[2024-06-29] MEDS: Omeprazole 20 MG CAPSULE.DR PO ×2 (06:34→23:10)
[2024-06-29 08:00] VITALS: BP 125/66; PULSE 77; RESP 18; TEMP 35.7; O2SAT 77
[2024-06-29 08:17] LABS: Alanine Aminotransferase 86 U/L (0-40); Alkaline Phosphatase 102 U/L (39-117); Anion Gap 11 (12-20); Aspartate Amino Transferase 76 U/L (5-37); Bilirubin Total 0.1 mg/dL (0.0-1.0); Blood Urea Nitrogen 18 mg/dL (9-16); Calcium 9.2 mg/dL (8.4-10.2); Carbon Dioxide 29 mmol/L (22-29); Chloride 102 mmol/L (96-108); Creatinine Clr Calc Pharmacy 84.2; Estimated Glomerular Filt Rate > 60; Glucose Fasting 131 mg/dL (60-99); Sodium 138 mmol/L (135-145); Total Protein 7.7 g/dL (6.5-8.0)
[2024-06-29 08:20] LABS: Carbamazepine Tegretol 9.8 mcg/mL (5.0-12.0)
[2024-06-29] MEDS: Ezetimibe 10 MG TABLET PO (09:01)
[2024-06-29] MEDS: Famotidine 20 MG TABLET PO (09:01)
[2024-06-29] MEDS: Aspirin Enteric Coated 81 MG TABLET.DR PO (09:01)
[2024-06-29] MEDS: amLODIPine Besylate 2.5 MG TABLET PO (09:02)
[2024-06-29] MEDS: Metoprolol Succinate ER 25 MG TAB.ER.24H PO (09:02)
[2024-06-29] MEDS: clonazePAM 1 MG TABLET PO ×2 (09:03→19:51)
[2024-06-29] MEDS: Folic Acid 1 MG TABLET PO (09:03)
[2024-06-29] MEDS: risperiDONE 3 MG TABLET PO ×2 (09:03→19:50)
[2024-06-29] MEDS: carBAMazepine 200 MG TABLET PO ×2 (09:03→19:51)
[2024-06-29] MEDS: Ferrous Sulfate 324 MG TABLET.DR PO (09:03)
[2024-06-29] MEDS: Thiamine HCL 100 MG TABLET PO (09:03)
--- NOTE | 2024-06-29 09:53 | P.PNPSI_ITS ---
Subjective Subjective Date of Service: 06/29/24 Reason For Visit: Dysregulated Subjective Notes: Section 7 Interim History: Pt slept 6hrs. He presents as pleasant on approach. He continues to present with fregoli type delusions were he believes strangers are family members. No aggression yesterday. He continues to take medications as prescribed. recently obtained level of tegretol- 9.8 He denies SI/HI. He is not oriented to situation often talking about waiting for his - but he is not and thinking he is leaving soon. Diagnostics Vital Signs (24Hr): Vital Signs - 24 hr 06/28/24 20:00 Temperature 96.5 F L Pulse Rate 75 Respiratory Rate 16 Blood Pressure 112/68 Pulse Oximetry 98 Oxygen Delivery Method Room Air BMI result Body Mass Index 32.2 Labs 06/29/24 23:13 06/29/24 23:13 Labs: Laboratory Results - last 48 hr 06/29/24 07:58 Sodium 138 Potassium 4.0 Chloride 102 Carbon Dioxide 29 Anion Gap 11 L BUN 18 H Creatinine 0.82 Estim Creat Clear Calc 84.2 Estimated GFR > 60 Fasting Glucose 131 H Calcium 9.2 Total Bilirubin 0.1 AST 76 H ALT 86 H Alkaline Phosphatase 102 Total Protein 7.7 Albumin 4.0 Carbamazepine 9.8 Imaging Radiology Impressions: ITS Impressions Chest X-Ray 06/09/24 10:55 IMPRESSION: No acute process. Mild hyperinflation. Head CT 06/09/24 11:20 IMPRESSION: 1. No evidence of acute intracranial hemorrhage or edematous territorial infarction. 2. Mild underlying microangiopathy. Chest X-Ray 06/23/24 01:45 IMPRESSION: Low lung volumes. Minimal scarring or atelectasis at the right lung base. No other significant abnormality seen. Medications Medications Current Medications Al Hydroxide/Mg Hydroxide (Magnesium Hydrox/Alum Hydrox 30 Ml Oral.Susp) 30 ml PO Q6H PRN PRN Reason: Heartburn/Nausea Last Admin: 06/24/24 22:33 Dose: 30 ml Albuterol Sulfate (Albuterol Sulfate 90 Mcg 8 Gm Inhaler) 2 puff INHALE Q4H PRN PRN Reason: Wheezing Last Admin: 06/28/24 07:43 Dose: 2 puff Amlodipine Besylate (Amlodipine Besylate 2.5 Mg Tablet) 2.5 mg PO DAILY [facility]; Protocol Last Admin: 06/29/24 09:02 Dose: 2.5 mg Artificial Tears (Artificial Tears 15 Ml Drops) 1 drop EYE-BOTH Q4H PRN PRN Reason: Dry Eyes Last Admin: 06/28/24 17:00 Dose: 1 drop Aspirin (Aspirin Enteric Coated 81 Mg Tablet.) 81 mg PO DAILY [facility] Last Admin: 06/29/24 09:01 Dose: 81 mg Atorvastatin Calcium (Atorvastatin Calcium 40 Mg Tablet) 40 mg PO BEDTIME [facility] Last Admin: 06/28/24 20:17 Dose: 40 mg Carbamazepine (Carbamazepine 200 Mg Tablet) 200 mg PO BID [facility] Last Admin: 06/29/24 09:03 Dose: 200 mg Clonazepam (Clonazepam 1 Mg Tablet) 1 mg PO BID [facility] Last Admin: 06/29/24 09:03 Dose: 1 mg Ezetimibe (Ezetimibe 10 Mg Tablet) 10 mg PO DAILY [facility] Last Admin: 06/29/24 09:01 Dose: 10 mg Famotidine (Famotidine 20 Mg Tablet) 20 mg PO DAILY [facility] Last Admin: 06/29/24 09:01 Dose: 20 mg Ferrous Sulfate (Ferrous Sulfate 324 Mg Tablet.) 324 mg PO DAILY [facility] Last Admin: 06/29/24 09:03 Dose: 324 mg Folic Acid (Folic Acid 1 Mg Tablet) 1 mg PO DAILY [facility] Last Admin: 06/29/24 09:03 Dose: 1 mg Hydroxyzine HCl (Hydroxyzine Hcl 25 Mg Tablet) 25 mg PO Q6H PRN PRN Reason: Anxiety Last Admin: 06/27/24 21:15 Dose: 25 mg Magnesium Hydroxide (Milk Of Magnesia 30 Ml Oral.Susp) 30 ml PO DAILY PRN PRN Reason: Constipation Last Admin: 06/24/24 16:04 Dose: 30 ml Metoprolol Succinate (Metoprolol Succinate Er 25 Mg Tab.Er.24h) 25 mg PO DAILY [facility]; Protocol Last Admin: 06/29/24 09:02 Dose: 25 mg Nicotine Polacrilex (Nicotine Polacrilex 2 Mg Gum) 4 mg BUCCAL Q2H PRN PRN Reason: Nicotine Cravings Last Admin: 06/28/24 12:22 Dose: 4 mg Nicotine Polacrilex (Nicotine Polacrilex 2 Mg Gum) 4 mg BUCCAL Q2H PRN PRN Reason: Nicotine Cravings Last Admin: 06/05/24 21:42 Dose: 4 mg Olanzapine (Olanzapine 10 Mg Tablet) 10 mg PO Q6H PRN PRN Reason: psychosis, agitation Last Admin: 06/28/24 20:17 Dose: 10 mg Omeprazole (Omeprazole 20 Mg Capsule.Dr) 20 mg PO DAILY@0630 [facility] Last Admin: 06/29/24 06:34 Dose: 20 mg Risperidone (Risperidone 3 Mg Tablet) 3 mg PO TID [facility] Last Admin: 06/29/24 09:03 Dose: 3 mg Simethicone (Simethicone 80 Mg Tab.Chew) 80 mg PO QIDWMHS PRN PRN Reason: Gas Last Admin: 06/26/24 15:07 Dose: 80 mg Thiamine HCl (Thiamine Hcl 100 Mg Tablet) 100 mg PO DAILY [facility] Last Admin: 06/29/24 09:03 Dose: 100 mg Tramadol HCl (Tramadol Hcl 50 Mg Tablet) 25 mg PO Q6H PRN PRN Reason: Pain, Moderate(Pain Scale 4-6) Last Admin: 06/28/24 20:16 Dose: 25 mg Trazodone HCl (Trazodone Hcl 100 Mg Tablet) 100 mg PO BEDTIME [facility] Last Admin: 06/28/24 20:18 Dose: 100 mg Allergies Allergies Allergy/AdvReac Type Severity Reaction Status Date / Time acetaminophen Allergy Unknown PANADOL = Verified 06/02/24 16:01 ACETAMINOPHEN SHELLFISH Allergy Mild PATIENT Uncoded 06/02/24 16:01 REPORTS BURNING SENSATION THROUGHOUT OPIATES Allergy Unknown BECAME Uncoded 06/02/24 16:01 ADDICTED PANADOL Allergy Unknown UNKNOWN Uncoded 06/02/24 16:01 Assessment & Plan Assessment & Plan (1) Schizoaffective disorder: Qualifiers: Schizoaffective disorder type: unspecified Qualified Code(s): F25.9 - Schizoaffective disorder, unspecified Status: Acute Code(s): F25.9 - Schizoaffective disorder, unspecified (2) Intellectual delay: Status: Acute Code(s): F81.9 - Developmental disorder of scholastic skills, unspecified (3) CAD (coronary artery disease): Status: Acute Code(s): I25.10 - Atherosclerotic heart disease of [place] coronary artery without angina pectoris Plan Patient 59 yr old Ugandan-speaking male with schizoaffective disorder, cognitive delay, who lives with his mother, recently discharged from on 05/20/2024 who presents via family for increased paranoia, anger and confusion. At last admission there was the thought that patient was not taking all of his medications, since the bulk of his Risperdal was prescribed at bedtime and the [facility] only came in the morning. During this last admission, Risperdal changed so that he was taking the bulk of it in the morning and with VNA, seems he is taking his medications. Despite this, family reports that his behaviors are worsening. On the unit he is friendly and calm; he is confused saying he wants to go see his children, caring a pillow in his arms and calling it his baby. 06/08 Patient remains disorganized, able to be goal-directed on some topics such as wanting is close but otherwise trying to enter in any open door he sees and needing frequent redirection. SW and physician underwriter Discussed case with outpt team: Efraín Gray, MICHAELS Nimisha Glaser DDS Marlyn Brennan [place] No one is sure why patient has decompensated after decades of remaining stable on Risperdal. Says that for some reason this past month he has been more paranoid, more disorganized and when he returned from last admission he was not quite back to baseline. The past weeks patient was given away clothing on the street. This past admission was following patient argument with a neighbor. Apparently he had been peeking into this neighbor's window, scaring the neighbor and scared the neighbor's kids. They had a verbal altercation; staff arrived and patient kept saying he was going to go over to the neighbor's and take care of the neighbor... No actual threat was made and patient has no history of aggression but because of this he was taken to the hospital. Bret has discussed eviction of both patient and his elderly mother if behaviors continue. Team wondered if patient was not taking his medications however physician underwriter explained that the bulk of his medications were switched so the [facility]NA was giving him the 3 mg of Risperdal out of the 3.5 total daily dose making this less likely the issue. They say at baseline he paces and is anxious but he pretty much make sense and though he may say some delusional things his conversations are overall able to remain grounded in reality. Discussed various options including temporary housing and likelihood that patient will at some point in the near future need some type of group living arrangement as his mother is elderly and with some dementia [facility] effective to March 26, 2025: Risperdal up to 10mg daily (primary) Geodon up to 60mg daily Zyprexa up to 25mg daily PLAN 06/29- Tegretol level 9.8, continue risperidone and prn olanzapine Reason for continued inpatient stay Substantial Risk for: harm to others and inability to function Time Spent With Patient Time: Total time managing care of this patient today ____ minutes.
[2024-06-29] MEDS: Albuterol Sulfate 90 MCG 8 GM INHALER 2 PUFF INHALE ×2 (12:24→20:50)
[2024-06-29] MEDS: Artificial Tears 15 ML DROPS 1 DROP EYE-BOTH ×2 (12:24→20:53)
[2024-06-29] MEDS: Nicotine Polacrilex 2 MG GUM 4 MG BUCCAL ×2 (12:29→19:52)
[2024-06-29] MEDS: Simethicone 80 MG TAB.CHEW PO (12:29)
[2024-06-29] MEDS: traZODone HCL 100 MG TABLET PO (19:49)
[2024-06-29] MEDS: Atorvastatin Calcium 40 MG TABLET PO (19:50)
[2024-06-29] MEDS: OLANZapine 10 MG TABLET PO (19:50)
[2024-06-29] MEDS: hydrOXYzine HCL 25 MG TABLET PO (19:51)
[2024-06-29 20:00] VITALS: BP 149/75; PULSE 65; RESP 16; TEMP 36.2; O2SAT 98
[2024-06-29 22:45] VITALS: BP 109/59; PULSE 91; RESP 16; TEMP 36.3; O2SAT 96
[2024-06-29 23:17] LABS: MANUAL DIFF FLAG NO
[2024-06-29 23:18] LABS: Basophils Percent Auto 0.4 % (0-2); Eosinophils Absolute Auto 0.2 X10*3/uL (0.0-0.4); Eosinophils Percent Auto 3.1 % (0-4); Hematocrit 37.1 % (42.0-52.0); Hemoglobin 12.2 g/dl (14.0-18.0); Imm Gran Abs Auto 0.19 X10*3/uL (0.00-0.03); Imm Gran Pct Auto 2.8 % (0.0-0.4); Lymphocytes Absolute Auto 1.8 X10*3/uL (1.2-4.9); Lymphocytes Percent Auto 26.6 % (20-40); Mean Corpuscular HGB Conc 32.9 g/dl (31.0-36.0); Mean Corpuscular Volume 85.3 fL (80.0-98.0); Mean Platelet Volume 8.9 fL (9.4-12.4); Monocytes Percent Auto 14.3 % (2-11); Neutrophils Absolute Auto 3.6 x10*3/uL (2.0-8.3); Neutrophils Percent Auto 52.8 % (45-73); Platelet Count 227 X10*3/uL (160-400); Red Blood Count 4.35 X10*6/uL (4.60-5.80); Red Cell Distribution Width 14.4 % (11.0-16.0); White Blood Count 6.8 X10*3/uL (4.8-10.8)
[2024-06-29 23:34] LABS: Alanine Aminotransferase 69 U/L (0-40); Albumin Level 3.6 g/dL (3.5-5.0); Alkaline Phosphatase 101 U/L (39-117); Anion Gap 11 (12-20); Aspartate Amino Transferase 47 U/L (5-37); Bilirubin Total 0.1 mg/dL (0.0-1.0); Blood Urea Nitrogen 15 mg/dL (9-16); Calcium 8.6 mg/dL (8.4-10.2); Carbon Dioxide 29 mmol/L (22-29); Chloride 103 mmol/L (96-108); Creatinine Clr Calc Pharmacy 84.2; Estimated Glomerular Filt Rate > 60; Glucose Random 141 mg/dL (60-115); Potassium 3.7 mmol/L (3.3-5.1); Sodium 139 mmol/L (135-145); Total Protein 6.9 g/dL (6.5-8.0)
[2024-06-30] MEDS: Omeprazole 20 MG CAPSULE.DR PO (06:54)
[2024-06-30 08:00] VITALS: BP 119/71; PULSE 72; RESP 18; TEMP 36.2; O2SAT 96
[2024-06-30] MEDS: Folic Acid 1 MG TABLET PO (09:08)
[2024-06-30] MEDS: Metoprolol Succinate ER 25 MG TAB.ER.24H PO (09:08)
[2024-06-30] MEDS: Thiamine HCL 100 MG TABLET PO (09:08)
[2024-06-30] MEDS: Ezetimibe 10 MG TABLET PO (09:08)
[2024-06-30] MEDS: carBAMazepine 200 MG TABLET PO ×2 (09:09→20:47)
[2024-06-30] MEDS: risperiDONE 3 MG TABLET PO ×3 (09:09→20:47)
[2024-06-30] MEDS: amLODIPine Besylate 2.5 MG TABLET PO (09:09)
[2024-06-30] MEDS: Famotidine 20 MG TABLET PO (09:09)
[2024-06-30] MEDS: clonazePAM 1 MG TABLET PO ×2 (09:10→20:47)
[2024-06-30] MEDS: Ferrous Sulfate 324 MG TABLET.DR PO (09:10)
--- NOTE | 2024-06-30 09:11 | PM.EVENT ---
Event Note Date of Service: 06/30/24 Event Note: Consult placed to hospitalist service for drop in h/h since admission. NO overt signs of bleeding/ H/H 15.6/46.7 on 06/02 --> 12.2/37.1% on 06/29. Check stool occult blood. If positive, GI consult Also check vitamin b12/folic acid and iron studies. Anemia is normocytic. Replete vitamins/iron if low. Otherwise outpt follow up advised. H/H above transfusion threshold. Time Spent With Patient Time: Total time managing care of this patient today ____ minutes.
[2024-06-30] MEDS: Nicotine Polacrilex 2 MG GUM 4 MG BUCCAL ×2 (10:09→13:12)
[2024-06-30 10:20] LABS: Ferritin 52 ng/mL (20-250); Iron 31 mcg/dL (45-160); Percent Iron Saturation 9 % (15-50); Total Iron Binding Capacity 327 mcg/dL (228-428); Unsaturated Iron Binding 296 ug/dL
[2024-06-30 12:55] LABS: Folate 19.2 ng/mL (> or = 4.0); Vitamin B12 523 pg/mL (200-900)
[2024-06-30] MEDS: Artificial Tears 15 ML DROPS 1 DROP EYE-BOTH (13:11)
[2024-06-30] MEDS: Albuterol Sulfate 90 MCG 8 GM INHALER 2 PUFF INHALE (13:11)
[2024-06-30 20:00] VITALS: BP 130/73; PULSE 82; RESP 18; TEMP 37; O2SAT 97
[2024-06-30] MEDS: Atorvastatin Calcium 40 MG TABLET PO (20:47)
[2024-06-30] MEDS: traZODone HCL 100 MG TABLET PO (20:47)
[2024-07-01] MEDS: Omeprazole 20 MG CAPSULE.DR PO (06:30)
[2024-07-01 07:55] VITALS: BP 121/68; PULSE 71; RESP 18; TEMP 36.1; O2SAT 97
[2024-07-01] MEDS: Thiamine HCL 100 MG TABLET PO (08:00)
[2024-07-01] MEDS: carBAMazepine 200 MG TABLET PO ×2 (08:00→20:16)
[2024-07-01] MEDS: Famotidine 20 MG TABLET PO (08:00)
[2024-07-01] MEDS: Ezetimibe 10 MG TABLET PO (08:00)
[2024-07-01] MEDS: clonazePAM 1 MG TABLET PO ×2 (08:00→20:17)
[2024-07-01] MEDS: Ascorbic Acid 250 MG TABLET PO (08:00)
[2024-07-01] MEDS: Ferrous Sulfate 324 MG TABLET.DR PO (08:00)
[2024-07-01] MEDS: Folic Acid 1 MG TABLET PO (08:00)
[2024-07-01] MEDS: amLODIPine Besylate 2.5 MG TABLET PO (08:01)
[2024-07-01] MEDS: risperiDONE 3 MG TABLET PO ×3 (08:01→20:16)
[2024-07-01] MEDS: Metoprolol Succinate ER 25 MG TAB.ER.24H PO (08:01)
[2024-07-01] MEDS: Nicotine Polacrilex 2 MG GUM 4 MG BUCCAL (08:04)
[2024-07-01] MEDS: Albuterol Sulfate 90 MCG 8 GM INHALER 2 PUFF INHALE ×3 (08:05→22:55)
[2024-07-01] MEDS: Artificial Tears 15 ML DROPS 1 DROP EYE-BOTH ×2 (08:06→14:35)
--- NOTE | 2024-07-01 08:59 | P.PNPSI_ITS ---
Subjective Subjective Date of Service: 06/30/24 Reason For Visit: Dysregulated Subjective Notes: Section 7 Interim History: Pt slept all night. He has been less intrusive with peers, still with fregoli type of delusions (thinking strangers are family members), and some paranoid delusions, not acting on it in last 24hrs. We had family meeting including brother, and DSS worker- brother unaware that pt has had guardian for 10 years and they had never met or spoke with court appointed guardian. We discussed clinical progress, medications and goals for admission mainly decrease aggression. He had overnight episode of coughing blood, Hgb/Hct has dropped since admission. increase omeprazole, hospitalist consult r/o GI bleed given hx of. Review of Systems Review of Systems Constitutional : No Weight loss, No Fever, No Chills, No Night Sweats, No Fatigue, No Malaise ENT/Mouth : No Hearing loss, No Ear Pain, No Nasal Congestion, No Sinus Pain, No Hoarseness, No sore throat, No Rhinorrhea, No Swallowing Difficulty Eyes: No Eye Pain, No Swelling, No Redness, No Foreign Body, No Discharge, No Vision Changes Cardiovascular : No Chest Pain, No SOB, No Dyspnea on Exertion, No Orthopnea, No Edema, No Palpitations Respiratory : No Cough, No Sputum, No Wheezing, No Smoke Exposure, No Dyspnea Gastrointestinal : No Nausea, No Vomiting, No Diarrhea, No Constipation, No abdominal Pain, No Hematochezia, No Melena Genitourinary : no irregular bleeding, No Dysuria, No Urinary Frequency, No Hematuria, No Urinary Incontinence, No Urgency, No Flank Pain, No Urinary Flow Changes, No Hesitancy Musculoskeletal : No joint pain, No Myalgias, No Joint Swelling Skin : No Skin Lesions, No rash Neuro : No Weakness, No Numbness, No Paresthesias, No Loss of Consciousness, No Dizziness, No Headache Psych : No Anxiety/Panic, No Depression, No SI/HI/AH/VH, No Social Issues, per family: Increased aggression and delusions Heme/Lymph: No Bruising, No Bleeding,No Lymphadenopathy Endocrine : No Polyuria, No Polydipsia, No Temperature Intolerance Yes Unobtainable due to mental status Mental Status Exam Mental Status Exam Narrative: Pt is alert, not oriented to situation, year or month but able to tell this is [facility]; behavior is pleasant, less intrusive with peers; patient is not in distress; dressed in hospital l attire, scruffy with adequate hygiene; mood is described as good and affect congruent; eye contact appropriate; Speech is normal rate, volume and prosody and not pressured; psychomotor: no agitation or retardation noted; thought process can be goal directed, but also tangential; Thought content is on various things, including going home but accepting treatment. Delusional thoughts- fregoli type delusions; denies any SI/HI. Denies AVH; Patients insight and judgment impaired. Diagnostics Vital Signs (24Hr): Vital Signs - 24 hr 06/30/24 20:00 07/01/24 07:55 Temperature 98.6 F 96.9 F Pulse Rate 82 71 Respiratory Rate 18 18 Blood Pressure 130/73 121/68 Pulse Oximetry 97 97 Oxygen Delivery Method Room Air Room Air BMI result Body Mass Index 32.2 Labs 06/29/24 23:13 06/29/24 23:13 Labs: Laboratory Results - last 48 hr 06/29/24 06/30/24 23:13 11:51 WBC 6.8 RBC 4.35 L Hgb 12.2 L Hct 37.1 L MCV 85.3 MCH 28.0 MCHC 32.9 RDW 14.4 Plt Count 227 MPV 8.9 L Immature Gran % (Auto) 2.8 H Neut % (Auto) 52.8 Lymph % (Auto) 26.6 [place] % (Auto) 14.3 H Eos % (Auto) 3.1 Baso % (Auto) 0.4 Lymph # (Auto) 1.8 [place] # (Auto) 1.0 Eos # (Auto) 0.2 Baso # (Auto) 0.0 Abs Immat Gran (auto) 0.19 H Absolute Neuts (auto) 3.6 Absolute Nucleated RBC 0.000 Nucleated RBC % (auto) 0.0 Sodium 139 Potassium 3.7 Chloride 103 Carbon Dioxide 29 Anion Gap 11 L BUN 15 Creatinine 0.82 Estim Creat Clear Calc 84.2 Estimated GFR > 60 Random Glucose 141 H Calcium 8.6 D Iron 31 L TIBC 327 % Saturation 9 L Unsat Iron Binding 296 Ferritin 52 Total Bilirubin 0.1 AST 47 H ALT 69 H Alkaline Phosphatase 101 Total Protein 6.9 Albumin 3.6 Vitamin B12 523 Folate 19.2 Imaging Radiology Impressions: ITS Impressions Chest X-Ray 07/23/24 10:55 IMPRESSION: No acute process. Mild hyperinflation. Head CT 06/09/24 11:20 IMPRESSION: 1. No evidence of acute intracranial hemorrhage or edematous territorial infarction. 2. Mild underlying microangiopathy. Chest X-Ray 06/23/24 01:45 IMPRESSION: Low lung volumes. Minimal scarring or atelectasis at the right lung base. No other significant abnormality seen. Medications Medications Current Medications Al Hydroxide/Mg Hydroxide (Magnesium Hydrox/Alum Hydrox 30 Ml Oral.Susp) 30 ml PO Q6H PRN PRN Reason: Heartburn/Nausea Last Admin: 06/24/24 22:33 Dose: 30 ml Albuterol Sulfate (Albuterol Sulfate 90 Mcg 8 Gm Inhaler) 2 puff INHALE Q4H PRN PRN Reason: Wheezing Last Admin: 07/01/24 08:05 Dose: 2 puff Amlodipine Besylate (Amlodipine Besylate 2.5 Mg Tablet) 2.5 mg PO DAILY [facility]; Protocol Last Admin: 07/01/24 08:01 Dose: 2.5 mg Artificial Tears (Artificial Tears 15 Ml Drops) 1 drop EYE-BOTH Q4H PRN PRN Reason: Dry Eyes Last Admin: 07/01/24 08:06 Dose: 1 drop Ascorbic Acid (Ascorbic Acid 250 Mg Tablet) 250 mg PO DAILY [facility] Last Admin: 07/01/24 08:00 Dose: 250 mg Aspirin (Aspirin Enteric Coated 81 Mg Tablet.) 81 mg PO DAILY [facility] Last Admin: 06/29/24 09:01 Dose: 81 mg Atorvastatin Calcium (Atorvastatin Calcium 40 Mg Tablet) 40 mg PO BEDTIME [facility] Last Admin: 06/30/24 20:47 Dose: 40 mg Carbamazepine (Carbamazepine 200 Mg Tablet) 200 mg PO BID [facility] Last Admin: 07/01/24 08:00 Dose: 200 mg Clonazepam (Clonazepam 1 Mg Tablet) 1 mg PO BID [facility] Last Admin: 07/01/24 08:00 Dose: 1 mg Ezetimibe (Ezetimibe 10 Mg Tablet) 10 mg PO DAILY [facility] Last Admin: 07/01/24 08:00 Dose: 10 mg Famotidine (Famotidine 20 Mg Tablet) 20 mg PO DAILY [facility] Last Admin: 07/01/24 08:00 Dose: 20 mg Ferrous Sulfate (Ferrous Sulfate 324 Mg Tablet.) 324 mg PO DAILY [facility] Last Admin: 07/01/24 08:00 Dose: 324 mg Folic Acid (Folic Acid 1 Mg Tablet) 1 mg PO DAILY [facility] Last Admin: 07/01/24 08:00 Dose: 1 mg Hydroxyzine HCl (Hydroxyzine Hcl 25 Mg Tablet) 25 mg PO Q6H PRN PRN Reason: Anxiety Last Admin: 06/29/24 19:51 Dose: 25 mg Magnesium Hydroxide (Milk Of Magnesia 30 Ml Oral.Susp) 30 ml PO DAILY PRN PRN Reason: Constipation Last Admin: 06/24/24 16:04 Dose: 30 ml Metoprolol Succinate (Metoprolol Succinate Er 25 Mg Tab.Er.24h) 25 mg PO DAILY [facility]; Protocol Last Admin: 07/01/24 08:01 Dose: 25 mg Nicotine Polacrilex (Nicotine Polacrilex 2 Mg Gum) 4 mg BUCCAL Q2H PRN PRN Reason: Nicotine Cravings Last Admin: 07/01/24 08:04 Dose: 4 mg Nicotine Polacrilex (Nicotine Polacrilex 2 Mg Gum) 4 mg BUCCAL Q2H PRN PRN Reason: Nicotine Cravings Last Admin: 06/05/24 21:42 Dose: 4 mg Olanzapine (Olanzapine 10 Mg Tablet) 10 mg PO Q6H PRN PRN Reason: psychosis, agitation Last Admin: 06/29/24 19:50 Dose: 10 mg Omeprazole (Omeprazole 20 Mg Capsule.) 20 mg PO DAILY@0630 [facility] Last Admin: 07/01/24 06:30 Dose: 20 mg Risperidone (Risperidone 3 Mg Tablet) 3 mg PO TID [facility] Last Admin: 07/01/24 08:01 Dose: 3 mg Simethicone (Simethicone 80 Mg Tab.Chew) 80 mg PO QIDWMHS PRN PRN Reason: Gas Last Admin: 06/29/24 12:29 Dose: 80 mg Thiamine HCl (Thiamine Hcl 100 Mg Tablet) 100 mg PO DAILY [facility] Last Admin: 07/01/24 08:00 Dose: 100 mg Tramadol HCl (Tramadol Hcl 50 Mg Tablet) 25 mg PO Q6H PRN PRN Reason: Pain, Moderate(Pain Scale 4-6) Last Admin: 06/28/24 20:16 Dose: 25 mg Trazodone HCl (Trazodone Hcl 100 Mg Tablet) 100 mg PO BEDTIME [facility] Last Admin: 06/30/24 20:47 Dose: 100 mg Allergies Allergies Allergy/AdvReac Type Severity Reaction Status Date / Time acetaminophen Allergy Unknown PANADOL = Verified 06/02/24 16:01 ACETAMINOPHEN SHELLFISH Allergy Mild PATIENT Uncoded 06/02/24 16:01 REPORTS BURNING SENSATION THROUGHOUT OPIATES Allergy Unknown BECAME Uncoded 06/02/24 16:01 ADDICTED PANADOL Allergy Unknown UNKNOWN Uncoded 06/02/24 16:01 Assessment & Plan Assessment & Plan (1) Schizoaffective disorder: Qualifiers: Schizoaffective disorder type: unspecified Qualified Code(s): F25.9 - Schizoaffective disorder, unspecified Status: Acute Code(s): F25.9 - Schizoaffective disorder, unspecified (2) Intellectual delay: Status: Acute Code(s): F81.9 - Developmental disorder of scholastic skills, unspecified (3) CAD (coronary artery disease): Status: Acute Code(s): I25.10 - Atherosclerotic heart disease of [place] coronary artery without angina pectoris Plan Patient 59 yr old Estonian-speaking male with schizoaffective disorder, cognitive delay, who lives with his mother, recently discharged from on 05/20/2024 who presents via family for increased paranoia, anger and confusion. At last admission there was the thought that patient was not taking all of his medications, since the bulk of his Risperdal was prescribed at bedtime and the VNA only came in the morning. During this last admission, Risperdal changed so that he was taking the bulk of it in the morning and with VNA, seems he is taking his medications. Despite this, family reports that his behaviors are worsening. On the unit he is friendly and calm; he is confused saying he wants to go see his children, caring a pillow in his arms and calling it his baby. 06/08 Patient remains disorganized, able to be goal-directed on some topics such as wanting is close but otherwise trying to enter in any open door he sees and needing frequent redirection. SW and lead technical writer Discussed case with outpt team: SHIMA Ruby DDS Marlyn Brennan [place] No one is sure why patient has decompensated after decades of remaining stable on Risperdal. Says that for some reason this past month he has been more paranoid, more disorganized and when he returned from last admission he was not quite back to baseline. The past weeks patient was given away clothing on the street. This past admission was following patient argument with a neighbor. Apparently he had been peeking into this neighbor's window, scaring the neighbor and scared the neighbor's kids. They had a verbal altercation; staff arrived and patient kept saying he was going to go over to the neighbor's and take care of the neighbor... No actual threat was made and patient has no history of aggression but because of this he was taken to the hospital. Bret has discussed eviction of both patient and his elderly mother if behaviors continue. Team wondered if patient was not taking his medications however lead technical writer explained that the bulk of his medications were switched so the [facility]NA was giving him the 3 mg of Risperdal out of the 3.5 total daily dose making this less likely the issue. They say at baseline he paces and is anxious but he pretty much make sense and though he may say some delusional things his conversations are overall able to remain grounded in reality. Discussed various options including temporary housing and likelihood that patient will at some point in the near future need some type of group living arrangement as his mother is elderly and with some dementia [facility] effective to March 26, 2025: Risperdal up to 10mg daily (primary) Geodon up to 60mg daily Zyprexa up to 25mg daily PLAN 06/29- Tegretol level 9.8, continue risperidone and prn olanzapine 06/30 continue tx. Reason for continued inpatient stay Substantial Risk for: harm to others and inability to function Time Spent With Patient Time: Total time managing care of this patient today ____ minutes.
--- NOTE | 2024-07-01 09:10 | P.PNPSI_ITS ---
Subjective Subjective Date of Service: 07/01/24 Reason For Visit: Dysregulated Subjective Notes: Section 7 Interim History: Pt slept all night. He continues to present as more pleasant, socializing with peers but less intrusive. No aggression in last 24 hrs. He is tolerating medications well. Will order occult blood x 3. seen by hospitalist. Review of Systems Review of Systems Constitutional : No Weight loss, No Fever, No Chills, No Night Sweats, No Fatigue, No Malaise ENT/Mouth : No Hearing loss, No Ear Pain, No Nasal Congestion, No Sinus Pain, No Hoarseness, No sore throat, No Rhinorrhea, No Swallowing Difficulty Eyes: No Eye Pain, No Swelling, No Redness, No Foreign Body, No Discharge, No Vision Changes Cardiovascular : No Chest Pain, No SOB, No Dyspnea on Exertion, No Orthopnea, No Edema, No Palpitations Respiratory : No Cough, No Sputum, No Wheezing, No Smoke Exposure, No Dyspnea Gastrointestinal : No Nausea, No Vomiting, No Diarrhea, No Constipation, No abdominal Pain, No Hematochezia, No Melena Genitourinary : no irregular bleeding, No Dysuria, No Urinary Frequency, No Hematuria, No Urinary Incontinence, No Urgency, No Flank Pain, No Urinary Flow Changes, No Hesitancy Musculoskeletal : No joint pain, No Myalgias, No Joint Swelling Skin : No Skin Lesions, No rash Neuro : No Weakness, No Numbness, No Paresthesias, No Loss of Consciousness, No Dizziness, No Headache Psych : No Anxiety/Panic, No Depression, No SI/HI/AH/VH, No Social Issues, per family: Increased aggression and delusions Heme/Lymph: No Bruising, No Bleeding,No Lymphadenopathy Endocrine : No Polyuria, No Polydipsia, No Temperature Intolerance Yes Unobtainable due to mental status Mental Status Exam Mental Status Exam Narrative: Pt is alert, not oriented to situation, year or month but able to tell this is [facility]; behavior is pleasant, less intrusive with peers; patient is not in distress; dressed in hospital l attire, scruffy with adequate hygiene; mood is described as good and affect congruent; eye contact appropriate; Speech is normal rate, volume and prosody and not pressured; psychomotor: no agitation or retardation noted; thought process can be goal directed, but also tangential; Thought content is on various things, including going home but accepting treatment. Delusional thoughts- fregoli type delusions; denies any SI/HI. Denies AVH; Patients insight and judgment impaired. Diagnostics Vital Signs (24Hr): Vital Signs - 24 hr 06/30/24 20:00 07/01/24 07:55 Temperature 98.6 F 96.9 F Pulse Rate 82 71 Respiratory Rate 18 18 Blood Pressure 130/73 121/68 Pulse Oximetry 97 97 Oxygen Delivery Method Room Air Room Air BMI result Body Mass Index 32.2 Labs 06/29/24 23:13 06/29/24 23:13 Labs: Laboratory Results - last 48 hr 06/29/24 06/30/24 23:13 11:51 WBC 6.8 RBC 4.35 L Hgb 12.2 L Hct 37.1 L MCV 85.3 MCH 28.0 MCHC 32.9 RDW 14.4 Plt Count 227 MPV 8.9 L Immature Gran % (Auto) 2.8 H Neut % (Auto) 52.8 Lymph % (Auto) 26.6 [place] % (Auto) 14.3 H Eos % (Auto) 3.1 Baso % (Auto) 0.4 Lymph # (Auto) 1.8 [place] # (Auto) 1.0 Eos # (Auto) 0.2 Baso # (Auto) 0.0 Abs Immat Gran (auto) 0.19 H Absolute Neuts (auto) 3.6 Absolute Nucleated RBC 0.000 Nucleated RBC % (auto) 0.0 Sodium 139 Potassium 3.7 Chloride 103 Carbon Dioxide 29 Anion Gap 11 L BUN 15 Creatinine 0.82 Estim Creat Clear Calc 84.2 Estimated GFR > 60 Random Glucose 141 H Calcium 8.6 D Iron 31 L TIBC 327 % Saturation 9 L Unsat Iron Binding 296 Ferritin 52 Total Bilirubin 0.1 AST 47 H ALT 69 H Alkaline Phosphatase 101 Total Protein 6.9 Albumin 3.6 Vitamin B12 523 Folate 19.2 Imaging Radiology Impressions: ITS Impressions Chest X-Ray 06/09/24 10:55 IMPRESSION: No acute process. Mild hyperinflation. Head CT 06/09/24 11:20 IMPRESSION: 1. No evidence of acute intracranial hemorrhage or edematous territorial infarction. 2. Mild underlying microangiopathy. Chest X-Ray 06/23/24 01:45 IMPRESSION: Low lung volumes. Minimal scarring or atelectasis at the right lung base. No other significant abnormality seen. Medications Medications Current Medications Al Hydroxide/Mg Hydroxide (Magnesium Hydrox/Alum Hydrox 30 Ml Oral.Susp) 30 ml PO Q6H PRN PRN Reason: Heartburn/Nausea Last Admin: 06/24/24 22:33 Dose: 30 ml Albuterol Sulfate (Albuterol Sulfate 90 Mcg 8 Gm Inhaler) 2 puff INHALE Q4H PRN PRN Reason: Wheezing Last Admin: 07/01/24 08:05 Dose: 2 puff Amlodipine Besylate (Amlodipine Besylate 2.5 Mg Tablet) 2.5 mg PO DAILY [facility]; Protocol Last Admin: 07/01/24 08:01 Dose: 2.5 mg Artificial Tears (Artificial Tears 15 Ml Drops) 1 drop EYE-BOTH Q4H PRN PRN Reason: Dry Eyes Last Admin: 07/01/24 08:06 Dose: 1 drop Ascorbic Acid (Ascorbic Acid 250 Mg Tablet) 250 mg PO DAILY [facility] Last Admin: 07/01/24 08:00 Dose: 250 mg Aspirin (Aspirin Enteric Coated 81 Mg Tablet.) 81 mg PO DAILY [facility] Last Admin: 06/29/24 09:01 Dose: 81 mg Atorvastatin Calcium (Atorvastatin Calcium 40 Mg Tablet) 40 mg PO BEDTIME [facility] Last Admin: 06/30/24 20:47 Dose: 40 mg Carbamazepine (Carbamazepine 200 Mg Tablet) 200 mg PO BID [facility] Last Admin: 07/01/24 08:00 Dose: 200 mg Clonazepam (Clonazepam 1 Mg Tablet) 1 mg PO BID [facility] Last Admin: 07/01/24 08:00 Dose: 1 mg Ezetimibe (Ezetimibe 10 Mg Tablet) 10 mg PO DAILY [facility] Last Admin: 07/01/24 08:00 Dose: 10 mg Famotidine (Famotidine 20 Mg Tablet) 20 mg PO DAILY [facility] Last Admin: 07/01/24 08:00 Dose: 20 mg Ferrous Sulfate (Ferrous Sulfate 324 Mg Tablet.) 324 mg PO DAILY [facility] Last Admin: 07/01/24 08:00 Dose: 324 mg Folic Acid (Folic Acid 1 Mg Tablet) 1 mg PO DAILY [facility] Last Admin: 07/01/24 08:00 Dose: 1 mg Hydroxyzine HCl (Hydroxyzine Hcl 25 Mg Tablet) 25 mg PO Q6H PRN PRN Reason: Anxiety Last Admin: 06/29/24 19:51 Dose: 25 mg Magnesium Hydroxide (Milk Of Magnesia 30 Ml Oral.Susp) 30 ml PO DAILY PRN PRN Reason: Constipation Last Admin: 06/24/24 16:04 Dose: 30 ml Metoprolol Succinate (Metoprolol Succinate Er 25 Mg Tab.Er.24h) 25 mg PO DAILY [facility]; Protocol Last Admin: 07/01/24 08:01 Dose: 25 mg Nicotine Polacrilex (Nicotine Polacrilex 2 Mg Gum) 4 mg BUCCAL Q2H PRN PRN Reason: Nicotine Cravings Last Admin: 07/01/24 08:04 Dose: 4 mg Nicotine Polacrilex (Nicotine Polacrilex 2 Mg Gum) 4 mg BUCCAL Q2H PRN PRN Reason: Nicotine Cravings Last Admin: 06/05/24 21:42 Dose: 4 mg Olanzapine (Olanzapine 10 Mg Tablet) 10 mg PO Q6H PRN PRN Reason: psychosis, agitation Last Admin: 06/29/24 19:50 Dose: 10 mg Omeprazole (Omeprazole 20 Mg Capsule.Dr) 20 mg PO DAILY@0630 [facility] Last Admin: 07/01/24 06:30 Dose: 20 mg Risperidone (Risperidone 3 Mg Tablet) 3 mg PO TID [facility] Last Admin: 07/01/24 08:01 Dose: 3 mg Simethicone (Simethicone 80 Mg Tab.Chew) 80 mg PO QIDWMHS PRN PRN Reason: Gas Last Admin: 06/29/24 12:29 Dose: 80 mg Thiamine HCl (Thiamine Hcl 100 Mg Tablet) 100 mg PO DAILY [facility] Last Admin: 07/01/24 08:00 Dose: 100 mg Tramadol HCl (Tramadol Hcl 50 Mg Tablet) 25 mg PO Q6H PRN PRN Reason: Pain, Moderate(Pain Scale 4-6) Last Admin: 06/28/24 20:16 Dose: 25 mg Trazodone HCl (Trazodone Hcl 100 Mg Tablet) 100 mg PO BEDTIME [facility] Last Admin: 06/30/24 20:47 Dose: 100 mg Allergies Allergies Allergy/AdvReac Type Severity Reaction Status Date / Time acetaminophen Allergy Unknown PANADOL = Verified 06/02/24 16:01 ACETAMINOPHEN SHELLFISH Allergy Mild PATIENT Uncoded 06/02/24 16:01 REPORTS BURNING SENSATION THROUGHOUT OPIATES Allergy Unknown BECAME Uncoded 06/02/24 16:01 ADDICTED PANADOL Allergy Unknown UNKNOWN Uncoded 06/02/24 16:01 Assessment & Plan Assessment & Plan (1) Schizoaffective disorder: Qualifiers: Schizoaffective disorder type: unspecified Qualified Code(s): F25.9 - Schizoaffective disorder, unspecified Status: Acute Code(s): F25.9 - Schizoaffective disorder, unspecified (2) Intellectual delay: Status: Acute Code(s): F81.9 - Developmental disorder of scholastic skills, unspecified (3) CAD (coronary artery disease): Status: Acute Code(s): I25.10 - Atherosclerotic heart disease of [place] coronary artery without angina pectoris Plan Patient 59 yr old [place]-speaking male with schizoaffective disorder, cognitive delay, who lives with his mother, recently discharged from on 05/20/2024 who presents via family for increased paranoia, anger and confusion. At last admission there was the thought that patient was not taking all of his medications, since the bulk of his Risperdal was prescribed at bedtime and the [facility]NA only came in the morning. During this last admission, Risperdal changed so that he was taking the bulk of it in the morning and with VNA, seems he is taking his medications. Despite this, family reports that his behaviors are worsening. On the unit he is friendly and calm; he is confused saying he wants to go see his children, caring a pillow in his arms and calling it his baby. 06/08 Patient remains disorganized, able to be goal-directed on some topics such as wanting is close but otherwise trying to enter in any open door he sees and needing frequent redirection. SW and feature writer Discussed case with outpt team: Efraín Gray, MICHAELS Nimisha Glaser DDS Marlyn HOOVER CM No one is sure why patient has decompensated after decades of remaining stable on Risperdal. Says that for some reason this past month he has been more paranoid, more disorganized and when he returned from last admission he was not quite back to baseline. The past weeks patient was given away clothing on the street. This past admission was following patient argument with a neighbor. Apparently he had been peeking into this neighbor's window, scaring the neighbor and scared the neighbor's kids. They had a verbal altercation; staff arrived and patient kept saying he was going to go over to the neighbor's and take care of the neighbor... No actual threat was made and patient has no history of aggression but because of this he was taken to the hospital. Bret has discussed eviction of both patient and his elderly mother if behaviors continue. Team wondered if patient was not taking his medications however feature writer explained that the bulk of his medications were switched so the VNA was giving him the 3 mg of Risperdal out of the 3.5 total daily dose making this less likely the issue. They say at baseline he paces and is anxious but he pretty much make sense and though he may say some delusional things his conversations are overall able to remain grounded in reality. Discussed various options including temporary housing and likelihood that patient will at some point in the near future need some type of group living arrangement as his mother is elderly and with some dementia [facility] effective to March 26, 2025: Risperdal up to 10mg daily (primary) Geodon up to 60mg daily Zyprexa up to 25mg daily PLAN 06/29- Tegretol level 9.8, continue risperidone and prn olanzapine 06/30 continue tx. fam meeting with dds 07/01 continue tx. Reason for continued inpatient stay Substantial Risk for: inability to function Time Spent With Patient Time: Total time managing care of this patient today ____ minutes.
--- NOTE | 2024-07-01 09:20 | PM.EVENT ---
Event Note Date of Service: 07/01/24 Event Note: Contacted by psych provided. Pt had a single episode of blood tinged sputum the night before last without recurrence. No ami hemoptysis. No fevers, chills. Will check cbc, ddimer, cxr, and covid/flu/rsv. Time Spent With Patient Time: Total time managing care of this patient today ____ minutes.
[2024-07-01 09:47] LABS: MANUAL DIFF FLAG NO
[2024-07-01 09:51] LABS: Basophils Percent Auto 0.6 % (0-2); Eosinophils Absolute Auto 0.2 X10*3/uL (0.0-0.4); Eosinophils Percent Auto 2.8 % (0-4); Hematocrit 37.4 % (42.0-52.0); Hemoglobin 12.3 g/dl (14.0-18.0); Imm Gran Abs Auto 0.14 X10*3/uL (0.00-0.03); Lymphocytes Absolute Auto 1.5 X10*3/uL (1.2-4.9); Lymphocytes Percent Auto 21.5 % (20-40); Mean Corpuscular HGB Conc 32.9 g/dl (31.0-36.0); Monocytes Absolute Auto 0.9 X10*3/uL (0.1-1.2); Monocytes Percent Auto 13.7 % (2-11); Neutrophils Absolute Auto 4.1 x10*3/uL (2.0-8.3); Neutrophils Percent Auto 59.4 % (45-73); Platelet Count 235 X10*3/uL (160-400); Red Cell Distribution Width 14.4 % (11.0-16.0); White Blood Count 6.9 X10*3/uL (4.8-10.8)
[2024-07-01 10:10] LABS: D Dimer High Sensitivity 213 NG/ML
[2024-07-01 11:33] LABS: Influenza A PCR NEGATIVE (Negative); Influenza B PCR NEGATIVE (Negative); Resp Syncy Virus RNA Qual PCR NEGATIVE (Negative); SARS COV2 PCR INHOUSE NEGATIVE (Negative)
[2024-07-01] MEDS: Amoxicillin/Potassium Clav 875 MG TABLET PO ×2 (14:32→20:16)
[2024-07-01 14:49] LABS: OBS Int Ctl Valid YES; OBS1 NEGATIVE (NEGATIVE)
[2024-07-01 20:00] VITALS: BP 120/58; PULSE 76; RESP 16; TEMP 36.8; O2SAT 97
[2024-07-01] MEDS: Atorvastatin Calcium 40 MG TABLET PO (20:16)
[2024-07-01] MEDS: traZODone HCL 100 MG TABLET PO (20:17)
[2024-07-01] MEDS: Magnesium Hydrox/Alum Hydrox 30 ML ORAL.SUSP PO (22:54)
[2024-07-02] MEDS: Omeprazole 20 MG CAPSULE.DR PO (06:07)
[2024-07-02 07:00] VITALS: BMI 33.5
[2024-07-02 07:40] VITALS: BP 111/69; PULSE 78; RESP 18; TEMP 36.4; O2SAT 97
[2024-07-02] MEDS: Famotidine 20 MG TABLET PO (07:40)
[2024-07-02] MEDS: Metoprolol Succinate ER 25 MG TAB.ER.24H PO (07:40)
[2024-07-02] MEDS: Ezetimibe 10 MG TABLET PO (07:40)
[2024-07-02 07:41] VITALS: BP 111/69
[2024-07-02] MEDS: Nicotine Polacrilex 2 MG GUM 4 MG BUCCAL ×3 (07:41→17:08)
[2024-07-02] MEDS: risperiDONE 3 MG TABLET PO ×3 (07:41→20:15)
[2024-07-02] MEDS: amLODIPine Besylate 2.5 MG TABLET PO (07:41)
[2024-07-02] MEDS: Ascorbic Acid 250 MG TABLET PO (07:42)
[2024-07-02] MEDS: Folic Acid 1 MG TABLET PO (07:42)
[2024-07-02] MEDS: Ferrous Sulfate 324 MG TABLET.DR PO (07:42)
[2024-07-02] MEDS: carBAMazepine 200 MG TABLET PO ×2 (07:42→20:15)
[2024-07-02] MEDS: Thiamine HCL 100 MG TABLET PO (07:42)
[2024-07-02] MEDS: clonazePAM 1 MG TABLET PO ×2 (07:42→20:15)
[2024-07-02] MEDS: Artificial Tears 15 ML DROPS 1 DROP EYE-BOTH ×2 (07:43→23:40)
[2024-07-02] MEDS: Albuterol Sulfate 90 MCG 8 GM INHALER 2 PUFF INHALE ×2 (07:43→20:32)
[2024-07-02] MEDS: Amoxicillin/Potassium Clav 875 MG TABLET PO ×2 (07:46→20:15)
--- NOTE | 2024-07-02 13:16 | P.PNPSI_ITS ---
Subjective Subjective Date of Service: 07/02/24 Reason For Visit: Dysregulated Subjective Notes: Conditional Voluntary Interim History: Patient not behaviorally disruptive or aggressive over the past day. Has been accepting treatment Mental Status Exam Mental Status Exam Narrative: Patient seen casually dressed knows it is at [facility] pleasant cooperative asking about discharge some paranoia noted Diagnostics Vital Signs (24Hr): Vital Signs - 24 hr 07/01/24 20:00 07/02/24 07:40 07/02/24 07:40 Temperature 98.2 F 97.6 F Pulse Rate 76 78 78 Respiratory Rate 16 18 Blood Pressure 120/58 L 111/69 111/69 Pulse Oximetry 97 97 Oxygen Delivery Method Room Air Room Air 07/02/24 07:41 Temperature Pulse Rate Respiratory Rate Blood Pressure 111/69 Pulse Oximetry Oxygen Delivery Method BMI result Body Mass Index 32.2 Labs 07/01/24 09:43 06/29/24 23:13 Labs: Laboratory Results - last 48 hr 07/01/24 07/01/24 07/01/24 09:43 10:40 14:20 WBC 6.9 RBC 4.40 L Hgb 12.3 L Hct 37.4 L MCV 85.0 MCH 28.0 MCHC 32.9 RDW 14.4 Plt Count 235 MPV 9.0 L Immature Gran % (Auto) 2.0 H Neut % (Auto) 59.4 Lymph % (Auto) 21.5 [place] % (Auto) 13.7 H Eos % (Auto) 2.8 Baso % (Auto) 0.6 Lymph # (Auto) 1.5 [place] # (Auto) 0.9 Eos # (Auto) 0.2 Baso # (Auto) 0.0 Abs Immat Gran (auto) 0.14 H Absolute Neuts (auto) 4.1 Absolute Nucleated RBC 0.000 Nucleated RBC % (auto) 0.0 D-Dimer High Sensitivty 213 Stool Occult Blood NEGATIVE Influenza Type A (PCR) NEGATIVE Influenza Type B (PCR) NEGATIVE RSV RNA Qual (PCR) NEGATIVE SARS-CoV-2 RNA (RT-PCR) NEGATIVE Imaging Radiology Impressions: ITS Impressions Chest X-Ray 06/09/24 10:55 IMPRESSION: No acute process. Mild hyperinflation. Head CT 06/09/24 11:20 IMPRESSION: 1. No evidence of acute intracranial hemorrhage or edematous territorial infarction. 2. Mild underlying microangiopathy. Chest X-Ray 06/23/24 01:45 IMPRESSION: Low lung volumes. Minimal scarring or atelectasis at the right lung base. No other significant abnormality seen. Chest X-Ray 07/01/24 10:59 IMPRESSION: The right hemidiaphragm is not as sharply defined on the current radiograph when compared to priors. Possible atelectasis or infiltrate in the right lung base. Consider follow-up with PA and lateral chest radiographs. Medications Medications Current Medications Al Hydroxide/Mg Hydroxide (Magnesium Hydrox/Alum Hydrox 30 Ml Oral.Susp) 30 ml PO Q6H PRN PRN Reason: Heartburn/Nausea Last Admin: 07/01/24 22:54 Dose: 30 ml Albuterol Sulfate (Albuterol Sulfate 90 Mcg 8 Gm Inhaler) 2 puff INHALE Q4H PRN PRN Reason: Wheezing Last Admin: 07/02/24 07:43 Dose: 2 puff Amlodipine Besylate (Amlodipine Besylate 2.5 Mg Tablet) 2.5 mg PO DAILY [facility]; Protocol Last Admin: 07/02/24 07:41 Dose: 2.5 mg Amoxicillin/Clavulanate Potassium (Amoxicillin/Potassium Clav 875 Mg Tablet) 875 mg PO BID [facility] Last Admin: 07/02/24 07:46 Dose: 875 mg Artificial Tears (Artificial Tears 15 Ml Drops) 1 drop EYE-BOTH Q4H PRN PRN Reason: Dry Eyes Last Admin: 07/02/24 07:43 Dose: 1 drop Ascorbic Acid (Ascorbic Acid 250 Mg Tablet) 250 mg PO DAILY [facility] Last Admin: 07/02/24 07:42 Dose: 250 mg Aspirin (Aspirin Enteric Coated 81 Mg Tablet.Dr) 81 mg PO DAILY [facility] Last Admin: 06/29/24 09:01 Dose: 81 mg Atorvastatin Calcium (Atorvastatin Calcium 40 Mg Tablet) 40 mg PO BEDTIME [facility] Last Admin: 07/01/24 20:16 Dose: 40 mg Carbamazepine (Carbamazepine 200 Mg Tablet) 200 mg PO BID [facility] Last Admin: 07/02/24 07:42 Dose: 200 mg Clonazepam (Clonazepam 1 Mg Tablet) 1 mg PO BID [facility] Last Admin: 07/02/24 07:42 Dose: 1 mg Ezetimibe (Ezetimibe 10 Mg Tablet) 10 mg PO DAILY [facility] Last Admin: 07/02/24 07:40 Dose: 10 mg Famotidine (Famotidine 20 Mg Tablet) 20 mg PO DAILY [facility] Last Admin: 07/02/24 07:40 Dose: 20 mg Ferrous Sulfate (Ferrous Sulfate 324 Mg Tablet.) 324 mg PO DAILY [facility] Last Admin: 07/02/24 07:42 Dose: 324 mg Folic Acid (Folic Acid 1 Mg Tablet) 1 mg PO DAILY [facility] Last Admin: 07/02/24 07:42 Dose: 1 mg Hydroxyzine HCl (Hydroxyzine Hcl 25 Mg Tablet) 25 mg PO Q6H PRN PRN Reason: Anxiety Last Admin: 06/29/24 19:51 Dose: 25 mg Magnesium Hydroxide (Milk Of Magnesia 30 Ml Oral.Susp) 30 ml PO DAILY PRN PRN Reason: Constipation Last Admin: 06/24/24 16:04 Dose: 30 ml Metoprolol Succinate (Metoprolol Succinate Er 25 Mg Tab.Er.24h) 25 mg PO DAILY [facility]; Protocol Last Admin: 07/02/24 07:40 Dose: 25 mg Nicotine Polacrilex (Nicotine Polacrilex 2 Mg Gum) 4 mg BUCCAL Q2H PRN PRN Reason: Nicotine Cravings Last Admin: 07/02/24 12:04 Dose: 4 mg Nicotine Polacrilex (Nicotine Polacrilex 2 Mg Gum) 4 mg BUCCAL Q2H PRN PRN Reason: Nicotine Cravings Last Admin: 06/05/24 21:42 Dose: 4 mg Olanzapine (Olanzapine 10 Mg Tablet) 10 mg PO Q6H PRN PRN Reason: psychosis, agitation Last Admin: 06/29/24 19:50 Dose: 10 mg Omeprazole (Omeprazole 20 Mg Capsule.) 20 mg PO DAILY@0630 [facility] Last Admin: 07/02/24 06:07 Dose: 20 mg Risperidone (Risperidone 3 Mg Tablet) 3 mg PO TID [facility] Last Admin: 07/02/24 07:41 Dose: 3 mg Simethicone (Simethicone 80 Mg Tab.Chew) 80 mg PO QIDWMHS PRN PRN Reason: Gas Last Admin: 06/29/24 12:29 Dose: 80 mg Thiamine HCl (Thiamine Hcl 100 Mg Tablet) 100 mg PO DAILY [facility] Last Admin: 07/01/24 08:00 Dose: 100 mg Tramadol HCl (Tramadol Hcl 50 Mg Tablet) 25 mg PO Q6H PRN PRN Reason: Pain, Moderate(Pain Scale 4-6) Last Admin: 06/28/24 20:16 Dose: 25 mg Trazodone HCl (Trazodone Hcl 100 Mg Tablet) 100 mg PO BEDTIME [facility] Last Admin: 07/01/24 20:17 Dose: 100 mg Allergies Allergies Allergy/AdvReac Type Severity Reaction Status Date / Time acetaminophen Allergy Unknown PANADOL = Verified 06/02/24 16:01 ACETAMINOPHEN SHELLFISH Allergy Mild PATIENT Uncoded 06/02/24 16:01 REPORTS BURNING SENSATION THROUGHOUT OPIATES Allergy Unknown BECAME Uncoded 06/02/24 16:01 ADDICTED PANADOL Allergy Unknown UNKNOWN Uncoded 06/02/24 16:01 Assessment & Plan Assessment & Plan (1) Schizoaffective disorder: Qualifiers: Schizoaffective disorder type: unspecified Qualified Code(s): F25.9 - Schizoaffective disorder, unspecified Status: Acute Code(s): F25.9 - Schizoaffective disorder, unspecified (2) Intellectual delay: Status: Acute Code(s): F81.9 - Developmental disorder of scholastic skills, unspecified (3) CAD (coronary artery disease): Status: Acute Code(s): I25.10 - Atherosclerotic heart disease of [place] coronary artery without angina pectoris Plan Patient 59 yr old [place]-speaking male with schizoaffective disorder, cognitive delay, who lives with his mother, recently discharged from on 05/20/2024 who presents via family for increased paranoia, anger and confusion. At last admission there was the thought that patient was not taking all of his medications, since the bulk of his Risperdal was prescribed at bedtime and the [facility]NA only came in the morning. During this last admission, Risperdal changed so that he was taking the bulk of it in the morning and with VNA, seems he is taking his medications. Despite this, family reports that his behaviors are worsening. On the unit he is friendly and calm; he is confused saying he wants to go see his children, caring a pillow in his arms and calling it his baby. 06/08 Patient remains disorganized, able to be goal-directed on some topics such as wanting is close but otherwise trying to enter in any open door he sees and needing frequent redirection. SW and conventional underwriter Discussed case with outpt team: Efraín Gray DDS Claire Alfredito DDS Marlyn Brennan [facility] No one is sure why patient has decompensated after decades of remaining stable on Risperdal. Says that for some reason this past month he has been more paranoid, more disorganized and when he returned from last admission he was not quite back to baseline. The past weeks patient was given away clothing on the street. This past admission was following patient argument with a neighbor. Apparently he had been peeking into this neighbor's window, scaring the neighbor and scared the neighbor's kids. They had a verbal altercation; staff arrived and patient kept saying he was going to go over to the neighbor's and take care of the neighbor... No actual threat was made and patient has no history of aggression but because of this he was taken to the hospital. Bret has discussed eviction of both patient and his elderly mother if behaviors continue. Team wondered if patient was not taking his medications however conventional underwriter explained that the bulk of his medications were switched so the [facility]NA was giving him the 3 mg of Risperdal out of the 3.5 total daily dose making this less likely the issue. They say at baseline he paces and is anxious but he pretty much make sense and though he may say some delusional things his conversations are overall able to remain grounded in reality. Discussed various options including temporary housing and likelihood that patient will at some point in the near future need some type of group living arrangement as his mother is elderly and with some dementia [facility] effective to March 26, 2025: Risperdal up to 10mg daily (primary) Geodon up to 60mg daily Zyprexa up to 25mg daily PLAN 06/29- Tegretol level 9.8, continue risperidone and prn olanzapine 06/30 continue tx. fam meeting with dds 07/01 continue tx. 07/02/24 cont tegretol risperadol Reason for continued inpatient stay Substantial Risk for: inability to function and rapid decompensation Time Spent With Patient Time: Total time managing care of this patient today ____ minutes.
[2024-07-02 19:50] VITALS: BP 118/65; PULSE 80; RESP 16; TEMP 36.3; O2SAT 96
[2024-07-02] MEDS: Atorvastatin Calcium 40 MG TABLET PO (20:15)
[2024-07-02] MEDS: traZODone HCL 100 MG TABLET PO (20:15)
[2024-07-03] MEDS: hydrOXYzine HCL 25 MG TABLET PO (05:21)
[2024-07-03] MEDS: Omeprazole 20 MG CAPSULE.DR PO (05:21)
[2024-07-03 07:57] VITALS: BP 137/67; PULSE 70; RESP 20; TEMP 36.3; O2SAT 97
[2024-07-03] MEDS: Ezetimibe 10 MG TABLET PO (08:18)
[2024-07-03] MEDS: Thiamine HCL 100 MG TABLET PO (08:18)
[2024-07-03] MEDS: risperiDONE 3 MG TABLET PO ×3 (08:18→20:28)
[2024-07-03] MEDS: amLODIPine Besylate 2.5 MG TABLET PO (08:18)
[2024-07-03] MEDS: Folic Acid 1 MG TABLET PO (08:18)
[2024-07-03] MEDS: Magnesium Hydrox/Alum Hydrox 30 ML ORAL.SUSP PO (08:18)
[2024-07-03] MEDS: clonazePAM 1 MG TABLET PO ×2 (08:18→20:28)
[2024-07-03] MEDS: Metoprolol Succinate ER 25 MG TAB.ER.24H PO (08:18)
[2024-07-03] MEDS: Famotidine 20 MG TABLET PO (08:18)
[2024-07-03] MEDS: Nicotine Polacrilex 2 MG GUM 4 MG BUCCAL (08:19)
[2024-07-03] MEDS: traMADoL HCL 50 MG TABLET 25 MG PO ×2 (08:19→20:27)
[2024-07-03] MEDS: Amoxicillin/Potassium Clav 875 MG TABLET PO ×2 (08:19→20:28)
[2024-07-03] MEDS: Ferrous Sulfate 324 MG TABLET.DR PO (08:19)
[2024-07-03] MEDS: Ascorbic Acid 250 MG TABLET PO (08:19)
[2024-07-03] MEDS: carBAMazepine 200 MG TABLET PO ×2 (08:19→20:28)
[2024-07-03] MEDS: Artificial Tears 15 ML DROPS 1 DROP EYE-BOTH ×2 (08:22→20:28)
--- NOTE | 2024-07-03 08:39 | HO.PSYCHPN ---
Subjective Subjective Date of Service: 07/03/24 Reason For Visit: Dysregulated Interim History: Pt slept all night. He continues on 15 minutes checks, no aggression towards self or others. He is very pleasant on approach, much less paranoid. No SI/HI. taking medications as prescribed. Review of Systems Review of Systems Constitutional : No Weight loss, No Fever, No Chills, No Night Sweats, No Fatigue, No Malaise ENT/Mouth : No Hearing loss, No Ear Pain, No Nasal Congestion, No Sinus Pain, No Hoarseness, No sore throat, No Rhinorrhea, No Swallowing Difficulty Eyes: No Eye Pain, No Swelling, No Redness, No Foreign Body, No Discharge, No Vision Changes Cardiovascular : No Chest Pain, No SOB, No Dyspnea on Exertion, No Orthopnea, No Edema, No Palpitations Respiratory : No Cough, No Sputum, No Wheezing, No Smoke Exposure, No Dyspnea Gastrointestinal : No Nausea, No Vomiting, No Diarrhea, No Constipation, No abdominal Pain, No Hematochezia, No Melena Genitourinary : no irregular bleeding, No Dysuria, No Urinary Frequency, No Hematuria, No Urinary Incontinence, No Urgency, No Flank Pain, No Urinary Flow Changes, No Hesitancy Musculoskeletal : No joint pain, No Myalgias, No Joint Swelling Skin : No Skin Lesions, No rash Neuro : No Weakness, No Numbness, No Paresthesias, No Loss of Consciousness, No Dizziness, No Headache Psych : No Anxiety/Panic, No Depression, No SI/HI/AH/VH, No Social Issues, per family: Increased aggression and delusions Heme/Lymph: No Bruising, No Bleeding,No Lymphadenopathy Endocrine : No Polyuria, No Polydipsia, No Temperature Intolerance Yes Unobtainable due to mental status Mental Status Exam Mental Status Exam Narrative: Pt is alert, not oriented to situation, year or month but able to tell this is [facility]; behavior is pleasant, less intrusive with peers; patient is not in distress; dressed in hospital l attire, scruffy with adequate hygiene; mood is described as good and affect congruent; eye contact appropriate; Speech is normal rate, volume and prosody and not pressured; psychomotor: no agitation or retardation noted; thought process can be goal directed, but also tangential; Thought content is on various things, including going home but accepting treatment. Delusional thoughts- fregoli type delusions; denies any SI/HI. Denies AVH; Patients insight and judgment impaired. Diagnostics Vital Signs (24Hr): Vital Signs - 24 hr 07/02/24 19:50 07/03/24 07:57 Temperature 97.3 F 97.3 F Pulse Rate 80 70 Respiratory Rate 16 20 Blood Pressure 118/65 137/67 Pulse Oximetry 96 97 Oxygen Delivery Method Room Air Room Air BMI result Body Mass Index 33.5 Labs 07/01/24 09:43 06/29/24 23:13 Labs: Laboratory Results - last 48 hr 07/01/24 07/01/24 07/01/24 09:43 10:40 14:20 WBC 6.9 RBC 4.40 L Hgb 12.3 L Hct 37.4 L MCV 85.0 MCH 28.0 MCHC 32.9 RDW 14.4 Plt Count 235 MPV 9.0 L Immature Gran % (Auto) 2.0 H Neut % (Auto) 59.4 Lymph % (Auto) 21.5 Pettis % (Auto) 13.7 H Eos % (Auto) 2.8 Baso % (Auto) 0.6 Lymph # (Auto) 1.5 Pettis # (Auto) 0.9 Eos # (Auto) 0.2 Baso # (Auto) 0.0 Abs Immat Gran (auto) 0.14 H Absolute Neuts (auto) 4.1 Absolute Nucleated RBC 0.000 Nucleated RBC % (auto) 0.0 D-Dimer High Sensitivty 213 Stool Occult Blood NEGATIVE Influenza Type A (PCR) NEGATIVE Influenza Type B (PCR) NEGATIVE RSV RNA Qual (PCR) NEGATIVE SARS-CoV-2 RNA (RT-PCR) NEGATIVE Imaging Radiology Impressions: ITS Impressions Chest X-Ray 06/09/24 10:55 IMPRESSION: No acute process. Mild hyperinflation. Head CT 06/09/24 11:20 IMPRESSION: 1. No evidence of acute intracranial hemorrhage or edematous territorial infarction. 2. Mild underlying microangiopathy. Chest X-Ray 06/23/24 01:45 IMPRESSION: Low lung volumes. Minimal scarring or atelectasis at the right lung base. No other significant abnormality seen. Chest X-Ray 07/01/24 10:59 IMPRESSION: The right hemidiaphragm is not as sharply defined on the current radiograph when compared to priors. Possible atelectasis or infiltrate in the right lung base. Consider follow-up with PA and lateral chest radiographs. Medications Medications Current Medications Al Hydroxide/Mg Hydroxide (Magnesium Hydrox/Alum Hydrox 30 Ml Oral.Susp) 30 ml PO Q6H PRN PRN Reason: Heartburn/Nausea Last Admin: 07/03/24 08:18 Dose: 30 ml Albuterol Sulfate (Albuterol Sulfate 90 Mcg 8 Gm Inhaler) 2 puff INHALE Q4H PRN PRN Reason: Wheezing Last Admin: 07/02/24 20:32 Dose: 2 puff Amlodipine Besylate (Amlodipine Besylate 2.5 Mg Tablet) 2.5 mg PO DAILY [facility]; Protocol Last Admin: 07/03/24 08:18 Dose: 2.5 mg Amoxicillin/Clavulanate Potassium (Amoxicillin/Potassium Clav 875 Mg Tablet) 875 mg PO BID [facility] Last Admin: 07/03/24 08:19 Dose: 875 mg Artificial Tears (Artificial Tears 15 Ml Drops) 1 drop EYE-BOTH Q4H PRN PRN Reason: Dry Eyes Last Admin: 07/03/24 08:22 Dose: 1 drop Ascorbic Acid (Ascorbic Acid 250 Mg Tablet) 250 mg PO DAILY [facility] Last Admin: 07/03/24 08:19 Dose: 250 mg Aspirin (Aspirin Enteric Coated 81 Mg Tablet.) 81 mg PO DAILY [facility] Last Admin: 06/29/24 09:01 Dose: 81 mg Atorvastatin Calcium (Atorvastatin Calcium 40 Mg Tablet) 40 mg PO BEDTIME [facility] Last Admin: 07/02/24 20:15 Dose: 40 mg Carbamazepine (Carbamazepine 200 Mg Tablet) 200 mg PO BID [facility] Last Admin: 07/03/24 08:19 Dose: 200 mg Clonazepam (Clonazepam 1 Mg Tablet) 1 mg PO BID [facility] Last Admin: 07/03/24 08:18 Dose: 1 mg Ezetimibe (Ezetimibe 10 Mg Tablet) 10 mg PO DAILY [facility] Last Admin: 07/03/24 08:18 Dose: 10 mg Famotidine (Famotidine 20 Mg Tablet) 20 mg PO DAILY [facility] Last Admin: 07/03/24 08:18 Dose: 20 mg Ferrous Sulfate (Ferrous Sulfate 324 Mg Tablet.) 324 mg PO DAILY [facility] Last Admin: 07/03/24 08:19 Dose: 324 mg Folic Acid (Folic Acid 1 Mg Tablet) 1 mg PO DAILY [facility] Last Admin: 07/03/24 08:18 Dose: 1 mg Hydroxyzine HCl (Hydroxyzine Hcl 25 Mg Tablet) 25 mg PO Q6H PRN PRN Reason: Anxiety Last Admin: 07/03/24 05:21 Dose: 25 mg Magnesium Hydroxide (Milk Of Magnesia 30 Ml Oral.Susp) 30 ml PO DAILY PRN PRN Reason: Constipation Last Admin: 06/24/24 16:04 Dose: 30 ml Metoprolol Succinate (Metoprolol Succinate Er 25 Mg Tab.Er.24h) 25 mg PO DAILY [facility]; Protocol Last Admin: 07/03/24 08:18 Dose: 25 mg Nicotine Polacrilex (Nicotine Polacrilex 2 Mg Gum) 4 mg BUCCAL Q2H PRN PRN Reason: Nicotine Cravings Last Admin: 07/03/24 08:19 Dose: 4 mg Nicotine Polacrilex (Nicotine Polacrilex 2 Mg Gum) 4 mg BUCCAL Q2H PRN PRN Reason: Nicotine Cravings Last Admin: 06/05/24 21:42 Dose: 4 mg Olanzapine (Olanzapine 10 Mg Tablet) 10 mg PO Q6H PRN PRN Reason: psychosis, agitation Last Admin: 06/29/24 19:50 Dose: 10 mg Omeprazole (Omeprazole 20 Mg Capsule.Dr) 20 mg PO DAILY@0630 [facility] Last Admin: 07/03/24 05:21 Dose: 20 mg Risperidone (Risperidone 3 Mg Tablet) 3 mg PO TID [facility] Last Admin: 07/03/24 08:18 Dose: 3 mg Simethicone (Simethicone 80 Mg Tab.Chew) 80 mg PO QIDWMHS PRN PRN Reason: Gas Last Admin: 06/29/24 12:29 Dose: 80 mg Thiamine HCl (Thiamine Hcl 100 Mg Tablet) 100 mg PO DAILY [facility] Last Admin: 07/03/24 08:18 Dose: 100 mg Tramadol HCl (Tramadol Hcl 50 Mg Tablet) 25 mg PO Q6H PRN PRN Reason: Pain, Moderate(Pain Scale 4-6) Last Admin: 07/03/24 08:19 Dose: 25 mg Trazodone HCl (Trazodone Hcl 100 Mg Tablet) 100 mg PO BEDTIME [facility] Last Admin: 07/02/24 20:15 Dose: 100 mg Allergies Allergies Allergy/AdvReac Type Severity Reaction Status Date / Time acetaminophen Allergy Unknown PANADOL = Verified 06/02/24 16:01 ACETAMINOPHEN SHELLFISH Allergy Mild PATIENT Uncoded 06/02/24 16:01 REPORTS BURNING SENSATION THROUGHOUT OPIATES Allergy Unknown BECAME Uncoded 06/02/24 16:01 ADDICTED PANADOL Allergy Unknown UNKNOWN Uncoded 06/02/24 16:01 Assessment & Plan Assessment & Plan (1) Schizoaffective disorder: Qualifiers: Schizoaffective disorder type: unspecified Qualified Code(s): F25.9 - Schizoaffective disorder, unspecified Status: Acute Code(s): F25.9 - Schizoaffective disorder, unspecified (2) Intellectual delay: Status: Acute Code(s): F81.9 - Developmental disorder of scholastic skills, unspecified (3) CAD (coronary artery disease): Status: Acute Code(s): I25.10 - Atherosclerotic heart disease of [place] coronary artery without angina pectoris Plan Patient 59 yr old Kinyarwanda-speaking male with schizoaffective disorder, cognitive delay, who lives with his mother, recently discharged from on 05/20/2024 who presents via family for increased paranoia, anger and confusion. At last admission there was the thought that patient was not taking all of his medications, since the bulk of his Risperdal was prescribed at bedtime and the [facility] only came in the morning. During this last admission, Risperdal changed so that he was taking the bulk of it in the morning and with VNA, seems he is taking his medications. Despite this, family reports that his behaviors are worsening. On the unit he is friendly and calm; he is confused saying he wants to go see his children, caring a pillow in his arms and calling it his baby. 06/08 Patient remains disorganized, able to be goal-directed on some topics such as wanting is close but otherwise trying to enter in any open door he sees and needing frequent redirection. SW and verse writer Discussed case with outpt team: SHIMA Ruby DDS Marlyn HOOVER CM No one is sure why patient has decompensated after decades of remaining stable on Risperdal. Says that for some reason this past month he has been more paranoid, more disorganized and when he returned from last admission he was not quite back to baseline. The past weeks patient was given away clothing on the street. This past admission was following patient argument with a neighbor. Apparently he had been peeking into this neighbor's window, scaring the neighbor and scared the neighbor's kids. They had a verbal altercation; staff arrived and patient kept saying he was going to go over to the neighbor's and take care of the neighbor... No actual threat was made and patient has no history of aggression but because of this he was taken to the hospital. Bret has discussed eviction of both patient and his elderly mother if behaviors continue. Team wondered if patient was not taking his medications however verse writer explained that the bulk of his medications were switched so the [facility]NA was giving him the 3 mg of Risperdal out of the 3.5 total daily dose making this less likely the issue. They say at baseline he paces and is anxious but he pretty much make sense and though he may say some delusional things his conversations are overall able to remain grounded in reality. Discussed various options including temporary housing and likelihood that patient will at some point in the near future need some type of group living arrangement as his mother is elderly and with some dementia [facility] effective to March 26, 2025: Risperdal up to 10mg daily (primary) Geodon up to 60mg daily Zyprexa up to 25mg daily PLAN 06/29- Tegretol level 9.8, continue risperidone and prn olanzapine 06/30 continue tx. fam meeting with dds 07/01 continue tx. 07/03 continue tx. dc next week. Reason for continued inpatient stay Substantial Risk for: inability to function Time Spent With Patient Time: Total time managing care of this patient today ____ minutes.
[2024-07-03 20:00] VITALS: BP 111/65; PULSE 76; RESP 18; TEMP 36.1; O2SAT 97
[2024-07-03] MEDS: Atorvastatin Calcium 40 MG TABLET PO (20:28)
[2024-07-03] MEDS: traZODone HCL 100 MG TABLET PO (20:28)
[2024-07-03] MEDS: Albuterol Sulfate 90 MCG 8 GM INHALER 2 PUFF INHALE (20:33)
[2024-07-04] MEDS: OLANZapine 10 MG TABLET PO (00:51)
[2024-07-04] MEDS: hydrOXYzine HCL 25 MG TABLET PO (00:51)
[2024-07-04 01:16] LABS: OBS Int Ctl Valid YES; OBS1 NEGATIVE (NEGATIVE)
[2024-07-04] MEDS: Ibuprofen 400 MG TABLET PO (04:58)
[2024-07-04] MEDS: Omeprazole 20 MG CAPSULE.DR PO (06:45)
[2024-07-04 08:34] VITALS: BP 115/64; PULSE 79; RESP 16; TEMP 36.6; O2SAT 96
[2024-07-04] MEDS: Ezetimibe 10 MG TABLET PO (09:34)
[2024-07-04] MEDS: Metoprolol Succinate ER 25 MG TAB.ER.24H PO (09:34)
[2024-07-04] MEDS: risperiDONE 3 MG TABLET PO ×3 (09:34→20:10)
[2024-07-04] MEDS: Ascorbic Acid 250 MG TABLET PO (09:34)
[2024-07-04] MEDS: Ferrous Sulfate 324 MG TABLET.DR PO (09:34)
[2024-07-04] MEDS: amLODIPine Besylate 2.5 MG TABLET PO (09:34)
[2024-07-04] MEDS: clonazePAM 1 MG TABLET PO ×2 (09:34→20:11)
[2024-07-04] MEDS: Famotidine 20 MG TABLET PO (09:34)
[2024-07-04] MEDS: Thiamine HCL 100 MG TABLET PO (09:34)
[2024-07-04] MEDS: carBAMazepine 200 MG TABLET PO ×2 (09:34→20:11)
[2024-07-04] MEDS: Amoxicillin/Potassium Clav 875 MG TABLET PO ×2 (09:34→20:10)
[2024-07-04] MEDS: Folic Acid 1 MG TABLET PO (09:34)
[2024-07-04] MEDS: Artificial Tears 15 ML DROPS 1 DROP EYE-BOTH ×2 (10:51→20:11)
[2024-07-04] MEDS: Albuterol Sulfate 90 MCG 8 GM INHALER 2 PUFF INHALE ×2 (10:51→20:11)
--- NOTE | 2024-07-04 12:45 | P.PNPSI_ITS ---
Subjective Subjective Date of Service: 07/04/24 Reason For Visit: Dysregulated Subjective Notes: Conditional Voluntary Interim History: Patient was seen and discussed in rounds today. Records and plans were reviewed. He has been pleasant, visible. He is medication compliant. No aggression. Eating and sleeping adequately. No changes were made today Review of Systems Review of Systems Yes all other systems are reviewed and are negative Mental Status Exam Mental Status Exam Narrative: In today's visit he is alert, pleasant and interactive with in his means. Soft- spoken speech. Little eye contact. Affect is constricted and contained. No acute signs of psychosis. Some paranoia and delusions reported. No SI. Cognitively he is tangential, mostly goal directed. No abnormalities of gait. Judgment is intact Diagnostics Vital Signs (24Hr): Vital Signs - 24 hr 07/03/24 20:00 07/04/24 08:34 Temperature 97 F 97.9 F Pulse Rate 76 79 Respiratory Rate 18 16 Blood Pressure 111/65 115/64 Pulse Oximetry 97 96 Oxygen Delivery Method Room Air Room Air BMI result Body Mass Index 33.5 Labs 07/01/24 09:43 06/29/24 23:13 Labs: Laboratory Results - last 48 hr 07/04/24 01:00 Stool Occult Blood NEGATIVE Imaging Radiology Impressions: ITS Impressions Chest X-Ray 06/09/24 10:55 IMPRESSION: No acute process. Mild hyperinflation. Head CT 06/09/24 11:20 IMPRESSION: 1. No evidence of acute intracranial hemorrhage or edematous territorial infarction. 2. Mild underlying microangiopathy. Chest X-Ray 06/23/24 01:45 IMPRESSION: Low lung volumes. Minimal scarring or atelectasis at the right lung base. No other significant abnormality seen. Chest X-Ray 07/01/24 10:59 IMPRESSION: The right hemidiaphragm is not as sharply defined on the current radiograph when compared to priors. Possible atelectasis or infiltrate in the right lung base. Consider follow-up with PA and lateral chest radiographs. Medications Medications Current Medications Al Hydroxide/Mg Hydroxide (Magnesium Hydrox/Alum Hydrox 30 Ml Oral.Susp) 30 ml PO Q6H PRN PRN Reason: Heartburn/Nausea Last Admin: 07/03/24 08:18 Dose: 30 ml Albuterol Sulfate (Albuterol Sulfate 90 Mcg 8 Gm Inhaler) 2 puff INHALE Q4H PRN PRN Reason: Wheezing Last Admin: 07/04/24 10:51 Dose: 2 puff Amlodipine Besylate (Amlodipine Besylate 2.5 Mg Tablet) 2.5 mg PO DAILY [facility]; Protocol Last Admin: 07/04/24 09:34 Dose: 2.5 mg Amoxicillin/Clavulanate Potassium (Amoxicillin/Potassium Clav 875 Mg Tablet) 875 mg PO BID [facility] Last Admin: 07/04/24 09:34 Dose: 875 mg Artificial Tears (Artificial Tears 15 Ml Drops) 1 drop EYE-BOTH Q4H PRN PRN Reason: Dry Eyes Last Admin: 07/04/24 10:51 Dose: 1 drop Ascorbic Acid (Ascorbic Acid 250 Mg Tablet) 250 mg PO DAILY [facility] Last Admin: 07/04/24 09:34 Dose: 250 mg Aspirin (Aspirin Enteric Coated 81 Mg Tablet.) 81 mg PO DAILY [facility] Last Admin: 06/29/24 09:01 Dose: 81 mg Atorvastatin Calcium (Atorvastatin Calcium 40 Mg Tablet) 40 mg PO BEDTIME [facility] Last Admin: 07/03/24 20:28 Dose: 40 mg Carbamazepine (Carbamazepine 200 Mg Tablet) 200 mg PO BID [facility] Last Admin: 07/04/24 09:34 Dose: 200 mg Clonazepam (Clonazepam 1 Mg Tablet) 1 mg PO BID [facility] Last Admin: 07/04/24 09:34 Dose: 1 mg Ezetimibe (Ezetimibe 10 Mg Tablet) 10 mg PO DAILY [facility] Last Admin: 07/04/24 09:34 Dose: 10 mg Famotidine (Famotidine 20 Mg Tablet) 20 mg PO DAILY [facility] Last Admin: 07/04/24 09:34 Dose: 20 mg Ferrous Sulfate (Ferrous Sulfate 324 Mg Tablet.) 324 mg PO DAILY [facility] [place] Last Admin: 07/04/24 09:34 Dose: 324 mg Folic Acid (Folic Acid 1 Mg Tablet) 1 mg PO DAILY [facility] [place] Last Admin: 07/04/24 09:34 Dose: 1 mg Hydroxyzine HCl (Hydroxyzine Hcl 25 Mg Tablet) 25 mg PO Q6H PRN PRN Reason: Anxiety Last Admin: 07/04/24 00:51 Dose: 25 mg Magnesium Hydroxide (Milk Of Magnesia 30 Ml Oral.Susp) 30 ml PO DAILY PRN PRN Reason: Constipation Last Admin: 06/24/24 16:04 Dose: 30 ml Metoprolol Succinate (Metoprolol Succinate Er 25 Mg Tab.Er.24h) 25 mg PO DAILY [facility]; Protocol Last Admin: 07/04/24 09:34 Dose: 25 mg Nicotine Polacrilex (Nicotine Polacrilex 2 Mg Gum) 4 mg BUCCAL Q2H PRN PRN Reason: Nicotine Cravings Last Admin: 07/03/24 08:19 Dose: 4 mg Nicotine Polacrilex (Nicotine Polacrilex 2 Mg Gum) 4 mg BUCCAL Q2H PRN PRN Reason: Nicotine Cravings Last Admin: 06/05/24 21:42 Dose: 4 mg Olanzapine (Olanzapine 10 Mg Tablet) 10 mg PO Q6H PRN PRN Reason: psychosis, agitation Last Admin: 07/04/24 00:51 Dose: 10 mg Omeprazole (Omeprazole 20 Mg Capsule.Dr) 20 mg PO DAILY@0630 [facility] Last Admin: 07/04/24 06:45 Dose: 20 mg Risperidone (Risperidone 3 Mg Tablet) 3 mg PO TID [facility] Last Admin: 07/04/24 09:34 Dose: 3 mg Simethicone (Simethicone 80 Mg Tab.Chew) 80 mg PO QIDWMHS PRN PRN Reason: Gas Last Admin: 06/29/24 12:29 Dose: 80 mg Thiamine HCl (Thiamine Hcl 100 Mg Tablet) 100 mg PO DAILY [facility] Last Admin: 07/04/24 09:34 Dose: 100 mg Tramadol HCl (Tramadol Hcl 50 Mg Tablet) 25 mg PO Q6H PRN PRN Reason: Pain, Moderate(Pain Scale 4-6) Last Admin: 07/03/24 20:27 Dose: 25 mg Trazodone HCl (Trazodone Hcl 100 Mg Tablet) 100 mg PO BEDTIME [facility] Last Admin: 07/03/24 20:28 Dose: 100 mg Allergies Allergies Allergy/AdvReac Type Severity Reaction Status Date / Time acetaminophen Allergy Unknown PANADOL = Verified 06/02/24 16:01 ACETAMINOPHEN SHELLFISH Allergy Mild PATIENT Uncoded 06/02/24 16:01 REPORTS BURNING SENSATION THROUGHOUT OPIATES Allergy Unknown BECAME Uncoded 06/02/24 16:01 ADDICTED PANADOL Allergy Unknown UNKNOWN Uncoded 06/02/24 16:01 Assessment & Plan Assessment & Plan (1) Schizoaffective disorder: Qualifiers: Schizoaffective disorder type: unspecified Qualified Code(s): F25.9 - Schizoaffective disorder, unspecified Status: Acute Code(s): F25.9 - Schizoaffective disorder, unspecified (2) Intellectual delay: Status: Acute Code(s): F81.9 - Developmental disorder of scholastic skills, unspecified (3) CAD (coronary artery disease): Status: Acute Code(s): I25.10 - Atherosclerotic heart disease of [place] coronary artery without angina pectoris Plan Patient 59 yr old Mongolian-speaking male with schizoaffective disorder, cognitive delay, who lives with his mother, recently discharged from on 05/20/2024 who presents via family for increased paranoia, anger and confusion. At last admission there was the thought that patient was not taking all of his medications, since the bulk of his Risperdal was prescribed at bedtime and the [facility]NA only came in the morning. During this last admission, Risperdal changed so that he was taking the bulk of it in the morning and with VNA, seems he is taking his medications. Despite this, family reports that his behaviors are worsening. On the unit he is friendly and calm; he is confused saying he wants to go see his children, caring a pillow in his arms and calling it his baby. 06/08 Patient remains disorganized, able to be goal-directed on some topics such as wanting is close but otherwise trying to enter in any open door he sees and needing frequent redirection. SW and fiction and nonfiction writer prose Discussed case with outpt team: Efraín Gray, MICHAELS Nimisha Glaser DDS Marlyn Brennan [facility] No one is sure why patient has decompensated after decades of remaining stable on Risperdal. Says that for some reason this past month he has been more paranoid, more disorganized and when he returned from last admission he was not quite back to baseline. The past weeks patient was given away clothing on the street. This past admission was following patient argument with a neighbor. Apparently he had been peeking into this neighbor's window, scaring the neighbor and scared the neighbor's kids. They had a verbal altercation; staff arrived and patient kept saying he was going to go over to the neighbor's and take care of the neighbor... No actual threat was made and patient has no history of aggression but because of this he was taken to the hospital. Bret has discussed eviction of both patient and his elderly mother if behaviors continue. Team wondered if patient was not taking his medications however fiction and nonfiction writer prose explained that the bulk of his medications were switched so the [facility]NA was giving him the 3 mg of Risperdal out of the 3.5 total daily dose making this less likely the issue. They say at baseline he paces and is anxious but he pretty much make sense and though he may say some delusional things his conversations are overall able to remain grounded in reality. Discussed various options including temporary housing and likelihood that patient will at some point in the near future need some type of group living arrangement as his mother is elderly and with some dementia [facility] effective to March 26, 2025: Risperdal up to 10mg daily (primary) Geodon up to 60mg daily Zyprexa up to 25mg daily PLAN 06/29- Tegretol level 9.8, continue risperidone and prn olanzapine 06/30 continue tx. fam meeting with dds 07/01 continue tx. 07/03 continue tx. dc next week. 07/04: Continue current regimen and planslan Reason for continued inpatient stay Substantial Risk for: med/psych decompensation Time Spent With Patient Time: Total time managing care of this patient today ____ minutes.
[2024-07-04 20:00] VITALS: BP 127/66; PULSE 80; RESP 16; TEMP 36.4; O2SAT 97
[2024-07-04] MEDS: traZODone HCL 100 MG TABLET PO (20:10)
[2024-07-04] MEDS: Atorvastatin Calcium 40 MG TABLET PO (20:10)
[2024-07-05] MEDS: Omeprazole 20 MG CAPSULE.DR PO (06:33)
[2024-07-05 08:17] VITALS: BP 113/62; PULSE 73; RESP 16; TEMP 36.5; O2SAT 95
[2024-07-05] MEDS: Albuterol Sulfate 90 MCG 8 GM INHALER 2 PUFF INHALE (09:01)
[2024-07-05] MEDS: clonazePAM 1 MG TABLET PO ×2 (09:01→20:57)
[2024-07-05] MEDS: Ezetimibe 10 MG TABLET PO (09:01)
[2024-07-05] MEDS: Amoxicillin/Potassium Clav 875 MG TABLET PO ×2 (09:01→20:58)
[2024-07-05] MEDS: Artificial Tears 15 ML DROPS 1 DROP EYE-BOTH ×2 (09:01→21:01)
[2024-07-05] MEDS: carBAMazepine 200 MG TABLET PO ×2 (09:01→20:58)
[2024-07-05] MEDS: risperiDONE 3 MG TABLET PO ×3 (09:01→20:58)
[2024-07-05] MEDS: Ascorbic Acid 250 MG TABLET PO (09:02)
[2024-07-05] MEDS: amLODIPine Besylate 2.5 MG TABLET PO (09:02)
[2024-07-05] MEDS: Thiamine HCL 100 MG TABLET PO (09:02)
[2024-07-05] MEDS: Metoprolol Succinate ER 25 MG TAB.ER.24H PO (09:02)
[2024-07-05] MEDS: Folic Acid 1 MG TABLET PO (09:02)
[2024-07-05] MEDS: Ferrous Sulfate 324 MG TABLET.DR PO (09:02)
[2024-07-05] MEDS: Famotidine 20 MG TABLET PO (09:02)
--- NOTE | 2024-07-05 10:26 | P.PNPSI_ITS ---
Subjective Subjective Date of Service: 07/05/24 Reason For Visit: Dysregulated Subjective Notes: Conditional Voluntary Interim History: Patient attempted to be seen and was discussed in rounds today. Records and plans were reviewed. He has was unavailable and was in a group but reviewed with nursing staff. He has been stable and medication compliant with no complaints or side effects reported.. Review of Systems Review of Systems Could not assess Mental Status Exam Mental Status Exam Narrative: Could not assess Diagnostics Vital Signs (24Hr): Vital Signs - 24 hr 07/04/24 20:00 07/05/24 08:17 Temperature 97.6 F 97.7 F Pulse Rate 80 73 Respiratory Rate 16 16 Blood Pressure 127/66 113/62 Pulse Oximetry 97 95 Oxygen Delivery Method Room Air Room Air BMI result Body Mass Index 33.5 Labs 07/01/24 09:43 06/29/24 23:13 Labs: Laboratory Results - last 48 hr 07/04/24 01:00 Stool Occult Blood NEGATIVE Imaging Radiology Impressions: ITS Impressions Chest X-Ray 06/09/24 10:55 IMPRESSION: No acute process. Mild hyperinflation. Head CT 06/09/24 11:20 IMPRESSION: 1. No evidence of acute intracranial hemorrhage or edematous territorial infarction. 2. Mild underlying microangiopathy. Chest X-Ray 06/23/24 01:45 IMPRESSION: Low lung volumes. Minimal scarring or atelectasis at the right lung base. No other significant abnormality seen. Chest X-Ray 07/01/24 10:59 IMPRESSION: The right hemidiaphragm is not as sharply defined on the current radiograph when compared to priors. Possible atelectasis or infiltrate in the right lung base. Consider follow-up with PA and lateral chest radiographs. Medications Medications Current Medications Al Hydroxide/Mg Hydroxide (Magnesium Hydrox/Alum Hydrox 30 Ml Oral.Susp) 30 ml PO Q6H PRN PRN Reason: Heartburn/Nausea Last Admin: 07/03/24 08:18 Dose: 30 ml Albuterol Sulfate (Albuterol Sulfate 90 Mcg 8 Gm Inhaler) 2 puff INHALE Q4H PRN PRN Reason: Wheezing Last Admin: 07/05/24 09:01 Dose: 2 puff Amlodipine Besylate (Amlodipine Besylate 2.5 Mg Tablet) 2.5 mg PO DAILY KAREN; Protocol Last Admin: 07/05/24 09:02 Dose: 2.5 mg Amoxicillin/Clavulanate Potassium (Amoxicillin/Potassium Clav 875 Mg Tablet) 875 mg PO BID [facility] Last Admin: 07/05/24 09:01 Dose: 875 mg Artificial Tears (Artificial Tears 15 Ml Drops) 1 drop EYE-BOTH Q4H PRN PRN Reason: Dry Eyes Last Admin: 07/05/24 09:01 Dose: 1 drop Ascorbic Acid (Ascorbic Acid 250 Mg Tablet) 250 mg PO DAILY [facility] Last Admin: 07/05/24 09:02 Dose: 250 mg Aspirin (Aspirin Enteric Coated 81 Mg Tablet.Dr) 81 mg PO DAILY [facility] Last Admin: 06/29/24 09:01 Dose: 81 mg Atorvastatin Calcium (Atorvastatin Calcium 40 Mg Tablet) 40 mg PO BEDTIME [facility] Last Admin: 07/04/24 20:10 Dose: 40 mg Carbamazepine (Carbamazepine 200 Mg Tablet) 200 mg PO BID [facility] Last Admin: 07/05/24 09:01 Dose: 200 mg Clonazepam (Clonazepam 1 Mg Tablet) 1 mg PO BID [facility] Last Admin: 07/05/24 09:01 Dose: 1 mg Ezetimibe (Ezetimibe 10 Mg Tablet) 10 mg PO DAILY [facility] Last Admin: 07/05/24 09:01 Dose: 10 mg Famotidine (Famotidine 20 Mg Tablet) 20 mg PO DAILY [facility] Last Admin: 07/05/24 09:02 Dose: 20 mg Ferrous Sulfate (Ferrous Sulfate 324 Mg Tablet.Dr) 324 mg PO DAILY [facility] Last Admin: 07/05/24 09:02 Dose: 324 mg Folic Acid (Folic Acid 1 Mg Tablet) 1 mg PO DAILY [facility] Last Admin: 07/05/24 09:02 Dose: 1 mg Hydroxyzine HCl (Hydroxyzine Hcl 25 Mg Tablet) 25 mg PO Q6H PRN PRN Reason: Anxiety Last Admin: 07/04/24 00:51 Dose: 25 mg Magnesium Hydroxide (Milk Of Magnesia 30 Ml Oral.Susp) 30 ml PO DAILY PRN PRN Reason: Constipation Last Admin: 06/24/24 16:04 Dose: 30 ml Metoprolol Succinate (Metoprolol Succinate Er 25 Mg Tab.Er.24h) 25 mg PO DAILY [facility]; Protocol Last Admin: 07/05/24 09:02 Dose: 25 mg Nicotine Polacrilex (Nicotine Polacrilex 2 Mg Gum) 4 mg BUCCAL Q2H PRN PRN Reason: Nicotine Cravings Last Admin: 07/03/24 08:19 Dose: 4 mg Nicotine Polacrilex (Nicotine Polacrilex 2 Mg Gum) 4 mg BUCCAL Q2H PRN PRN Reason: Nicotine Cravings Last Admin: 06/05/24 21:42 Dose: 4 mg Olanzapine (Olanzapine 10 Mg Tablet) 10 mg PO Q6H PRN PRN Reason: psychosis, agitation Last Admin: 07/04/24 00:51 Dose: 10 mg Omeprazole (Omeprazole 20 Mg Capsule.Dr) 20 mg PO DAILY@0630 [facility] Last Admin: 07/05/24 06:33 Dose: 20 mg Risperidone (Risperidone 3 Mg Tablet) 3 mg PO TID [facility] Last Admin: 07/05/24 09:01 Dose: 3 mg Simethicone (Simethicone 80 Mg Tab.Chew) 80 mg PO QIDWMHS PRN PRN Reason: Gas Last Admin: 06/29/24 12:29 Dose: 80 mg Thiamine HCl (Thiamine Hcl 100 Mg Tablet) 100 mg PO DAILY [facility] Last Admin: 07/05/24 09:02 Dose: 100 mg Tramadol HCl (Tramadol Hcl 50 Mg Tablet) 25 mg PO Q6H PRN PRN Reason: Pain, Moderate(Pain Scale 4-6) Last Admin: 07/03/24 20:27 Dose: 25 mg Trazodone HCl (Trazodone Hcl 100 Mg Tablet) 100 mg PO BEDTIME [facility] Last Admin: 07/04/24 20:10 Dose: 100 mg Allergies Allergies Allergy/AdvReac Type Severity Reaction Status Date / Time acetaminophen Allergy Unknown PANADOL = Verified 06/02/24 16:01 ACETAMINOPHEN SHELLFISH Allergy Mild PATIENT Uncoded 06/02/24 16:01 REPORTS BURNING SENSATION THROUGHOUT OPIATES Allergy Unknown BECAME Uncoded 06/02/24 16:01 ADDICTED PANADOL Allergy Unknown UNKNOWN Uncoded 06/02/24 16:01 Assessment & Plan Assessment & Plan (1) Schizoaffective disorder: Qualifiers: Schizoaffective disorder type: unspecified Qualified Code(s): F25.9 - Schizoaffective disorder, unspecified Status: Acute Code(s): F25.9 - Schizoaffective disorder, unspecified (2) Intellectual delay: Status: Acute Code(s): F81.9 - Developmental disorder of scholastic skills, unspecified (3) CAD (coronary artery disease): Status: Acute Code(s): I25.10 - Atherosclerotic heart disease of [place] coronary artery without angina pectoris Plan Patient 59 yr old [place] Citizen-speaking male with schizoaffective disorder, cognitive delay, who lives with his mother, recently discharged from on 05/20/2024 who presents via family for increased paranoia, anger and confusion. At last admission there was the thought that patient was not taking all of his medications, since the bulk of his Risperdal was prescribed at bedtime and the [facility] only came in the morning. During this last admission, Risperdal changed so that he was taking the bulk of it in the morning and with VNA, seems he is taking his medications. Despite this, family reports that his behaviors are worsening. On the unit he is friendly and calm; he is confused saying he wants to go see his children, caring a pillow in his arms and calling it his baby. 06/08 Patient remains disorganized, able to be goal-directed on some topics such as wanting is close but otherwise trying to enter in any open door he sees and needing frequent redirection. SW and senior technical writer Discussed case with outpt team: Efraín Gray, MICHAELS Nimisha Glaser DDS Marlyn HOOVER CM No one is sure why patient has decompensated after decades of remaining stable on Risperdal. Says that for some reason this past month he has been more paranoid, more disorganized and when he returned from last admission he was not quite back to baseline. The past weeks patient was given away clothing on the street. This past admission was following patient argument with a neighbor. Apparently he had been peeking into this neighbor's window, scaring the neighbor and scared the neighbor's kids. They had a verbal altercation; staff arrived and patient kept saying he was going to go over to the neighbor's and take care of the neighbor... No actual threat was made and patient has no history of aggression but because of this he was taken to the hospital. Bret has discussed eviction of both patient and his elderly mother if behaviors continue. Team wondered if patient was not taking his medications however senior technical writer explained that the bulk of his medications were switched so the [facility] was giving him the 3 mg of Risperdal out of the 3.5 total daily dose making this less likely the issue. They say at baseline he paces and is anxious but he pretty much make sense and though he may say some delusional things his conversations are overall able to remain grounded in reality. Discussed various options including temporary housing and likelihood that patient will at some point in the near future need some type of group living arrangement as his mother is elderly and with some dementia [facility] effective to March 26, 2025: Risperdal up to 10mg daily (primary) Geodon up to 60mg daily Zyprexa up to 25mg daily PLAN 06/29- Tegretol level 9.8, continue risperidone and prn olanzapine 06/30 continue tx. fam meeting with dds 07/01 continue tx. 07/03 continue tx. dc next week. 07/04: Continue current regimen and plans 07/05: Continue current regimen and plans Reason for continued inpatient stay Substantial Risk for: med/psych decompensation Time Spent With Patient Time: Total time managing care of this patient today ____ minutes.
[2024-07-05] MEDS: Nicotine Polacrilex 2 MG GUM 4 MG BUCCAL ×2 (13:30→15:39)
[2024-07-05 20:00] VITALS: BP 117/58; PULSE 80; RESP 18; TEMP 36.5; O2SAT 97
[2024-07-05] MEDS: Atorvastatin Calcium 40 MG TABLET PO (20:57)
[2024-07-05] MEDS: traZODone HCL 100 MG TABLET PO (20:58)
[2024-07-06] MEDS: Omeprazole 20 MG CAPSULE.DR PO (06:02)
[2024-07-06 07:53] VITALS: BP 128/67; PULSE 70; RESP 15; TEMP 36.7; O2SAT 97
[2024-07-06] MEDS: Ezetimibe 10 MG TABLET PO (07:54)
[2024-07-06] MEDS: Amoxicillin/Potassium Clav 875 MG TABLET PO (07:54)
[2024-07-06] MEDS: Metoprolol Succinate ER 25 MG TAB.ER.24H PO (07:54)
[2024-07-06] MEDS: amLODIPine Besylate 2.5 MG TABLET PO (07:55)
[2024-07-06] MEDS: Famotidine 20 MG TABLET PO (07:55)
[2024-07-06] MEDS: Thiamine HCL 100 MG TABLET PO (07:55)
[2024-07-06] MEDS: Ferrous Sulfate 324 MG TABLET.DR PO (07:55)
[2024-07-06] MEDS: clonazePAM 1 MG TABLET PO (07:55)
[2024-07-06] MEDS: carBAMazepine 200 MG TABLET PO (07:55)
[2024-07-06] MEDS: Ascorbic Acid 250 MG TABLET PO (07:55)
[2024-07-06] MEDS: risperiDONE 3 MG TABLET PO (07:55)
[2024-07-06] MEDS: Folic Acid 1 MG TABLET PO (07:56)
[2024-07-06] MEDS: Artificial Tears 15 ML DROPS 1 DROP EYE-BOTH (08:01)
--- NOTE | 2024-07-06 09:28 | PM.PSYDC ---
DS: Providers Provider Date of Service: 07/06/24 Date of admission: 06/03/24 14:33 Date of discharge: 07/06/24 Primary care physician: Unknown Physician Consults: 06/29/24 23:23 Consult to Hospitalist Routine Comment: Consulting Provider: Hospitalist Reason For Exam: drop in Hgb/Hct since admission hx GI bleed Discharging clinician: Georgette Estrella DS: Diagnosis Discharge Diagnosis (1) Schizoaffective disorder: Status: Acute (2) Intellectual delay: Status: Acute (3) CAD (coronary artery disease): Status: Acute DS: Medications Discharge Medications Home Medications: Previous Rx's ?Medication ?Instructions ?Recorded albuterol sulfate 90 mcg/actuation 2 puff inhalation Q4H PRN Wheezing 07/06/24 aerosol inhaler (Ventolin HFA) #6.7 grams amlodipine 2.5 mg tablet 2.5 mg PO DAILY #30 tabs 07/06/24 ascorbic acid (vitamin C) 250 mg 250 mg PO DAILY #30 tabs 07/06/24 tablet aspirin 81 mg tablet,delayed 81 mg PO DAILY #30 tabs 07/06/24 release atorvastatin 40 mg tablet 40 mg PO BEDTIME #30 tabs 07/06/24 carbamazepine 200 mg tablet 200 mg PO BID #60 tabs 07/06/24 clonazepam 1 mg tablet 1 mg PO BID #60 tabs 07/06/24 ezetimibe 10 mg tablet 10 mg PO DAILY #30 tabs 07/06/24 famotidine 20 mg tablet 20 mg PO DAILY #30 tabs 07/06/24 ferrous sulfate 324 mg (65 mg 324 mg PO DAILY #30 tabs 07/06/24 iron) tablet,delayed release folic acid 1 mg tablet 1 mg PO DAILY #30 tabs 07/06/24 metoprolol succinate 25 mg 25 mg PO DAILY #30 tabs 07/06/24 tablet,extended release 24 hr nicotine (polacrilex) 2 mg gum 4 mg buccal Q2H PRN Nicotine 07/06/24 Cravings #60 ea omeprazole 20 mg capsule,delayed 20 mg PO DAILY@0630 #30 caps 07/06/24 release peg [id number] 1 1 drp ophthalmic (eye) Q4H PRN Dry 07/06/24 %-0.2 %-0.2 % eye drops Eyes #15 mL (Artificial Tears ([id number])) risperidone 3 mg tablet 3 mg PO TID #90 tabs 07/06/24 thiamine mononitrate (vit B1) 100 100 mg PO DAILY #30 tabs 07/06/24 mg tablet trazodone 100 mg tablet 100 mg PO BEDTIME #30 tabs 07/06/24 Mental Status Exam Mental Status Exam Narrative: Appearance: wearing hospital gown,in NAD Behavior: friendly and cooperative Speech: clear, regular rate/rhythm/volume, spontaneous TP: goal oriented- wanting to go home TC: wanting to go Mood: good Affect: bright, non labile SI: denies HI: denies VH/AH:no overt Delusions: residual fregoli type delusions, less paranoid delusions. Insight/judgment: limited x 2. Memory/cog: alert, oriented to place, not month nor year, nor situation. Data Data Completed and Pending Completed studies during hospitalization [Text1]: 06/29/24 06/30/24 07/01/24 23:13 11:51 09:43 WBC 6.8 6.9 RBC 4.35 L 4.40 L Hgb 12.2 L 12.3 L Hct 37.1 L 37.4 L MCV 85.3 85.0 MCH 28.0 28.0 MCHC 32.9 32.9 RDW 14.4 14.4 Plt Count 227 235 MPV 8.9 L 9.0 L Immature Gran % (Auto) 2.8 H 2.0 H Neut % (Auto) 52.8 59.4 Lymph % (Auto) 26.6 21.5 Humphreys % (Auto) 14.3 H 13.7 H Eos % (Auto) 3.1 2.8 Baso % (Auto) 0.4 0.6 Lymph # (Auto) 1.8 1.5 Humphreys # (Auto) 1.0 0.9 Eos # (Auto) 0.2 0.2 Baso # (Auto) 0.0 0.0 Abs Immat Gran (auto) 0.19 H 0.14 H Absolute Neuts (auto) 3.6 4.1 Absolute Nucleated RBC 0.000 0.000 Nucleated RBC % (auto) 0.0 0.0 D-Dimer High Sensitivty 213 Sodium 139 Potassium 3.7 Chloride 103 Carbon Dioxide 29 Anion Gap 11 L BUN 15 Creatinine 0.82 Estim Creat Clear Calc 84.2 Estimated GFR > 60 Random Glucose 141 H Calcium 8.6 D Iron 31 L TIBC 327 % Saturation 9 L Unsat Iron Binding 296 Ferritin 52 Total Bilirubin 0.1 AST 47 H ALT 69 H Alkaline Phosphatase 101 Total Protein 6.9 Albumin 3.6 Vitamin B12 523 Folate 19.2 Stool Occult Blood Influenza Type A (PCR) Influenza Type B (PCR) RSV RNA Qual (PCR) SARS-CoV-2 RNA (RT-PCR) 07/01/24 07/01/24 07/04/24 10:40 14:20 01:00 WBC RBC Hgb Hct MCV MCH MCHC RDW Plt Count MPV Immature Gran % (Auto) Neut % (Auto) Lymph % (Auto) Humphreys % (Auto) Eos % (Auto) Baso % (Auto) Lymph # (Auto) Humphreys # (Auto) Eos # (Auto) Baso # (Auto) Abs Immat Gran (auto) Absolute Neuts (auto) Absolute Nucleated RBC Nucleated RBC % (auto) D-Dimer High Sensitivty Sodium Potassium Chloride Carbon Dioxide Anion Gap BUN Creatinine Estim Creat Clear Calc Estimated GFR Random Glucose Calcium Iron TIBC % Saturation Unsat Iron Binding Ferritin Total Bilirubin AST ALT Alkaline Phosphatase Total Protein Albumin Vitamin B12 Folate Stool Occult Blood NEGATIVE NEGATIVE Influenza Type A (PCR) NEGATIVE Influenza Type B (PCR) NEGATIVE RSV RNA Qual (PCR) NEGATIVE SARS-CoV-2 RNA (RT-PCR) NEGATIVE 06/09/24 11:11 Urine clean catch - Clean Catch Midstream Urine Culture - Final No growth. 06/03/24 Unknown Urine clean catch - Clean Catch Midstream Urine Culture - Final Imaging Diagnostic Imaging Impressions Chest X-Ray 06/09/24 10:55 IMPRESSION: No acute process. Mild hyperinflation. Head CT 06/09/24 11:20 IMPRESSION: 1. No evidence of acute intracranial hemorrhage or edematous territorial infarction. 2. Mild underlying microangiopathy. Chest X-Ray 06/23/24 01:45 IMPRESSION: Low lung volumes. Minimal scarring or atelectasis at the right lung base. No other significant abnormality seen. Chest X-Ray 07/01/24 10:59 IMPRESSION: The right hemidiaphragm is not as sharply defined on the current radiograph when compared to priors. Possible atelectasis or infiltrate in the right lung base. Consider follow-up with PA and lateral chest radiographs. DS: Summary Hospital Course Hospital Course: Mr. Morillo was admitted on a CV. He presented with combination of fregoli type delusions, thinking strangers were family members. He also presented with paranoid delusions thinking people were trying to harm his family. He was oriented to place but not to situation, month or year which is his baseline. Per family, some of fregoli delusions seem to be a new theme for him. He had a long hospital course as he was intrusive and at times aggressive towards random people he thought were harming his family. He has a court appointment guardian. He also has DDS and DMH services. Initially he was switched from risperidone to olanzapine, which did not seem to manage delusions or psychosis as much. He was started on depakote but ammonia increased and this medication was stopped. He was switched again to risperidone, which was titrated to 3mg po TID. He was started on carbamazepine 200mg po BID. His clonazepam was increased to 1mg po BID. His affect gradually presented as much less guarded, less intrusive towards peers and staff. He was sleeping better. He denied SI/HI. He did not show any signs of aggression towards self or others several days prior to discharge. He appear much more pleasant and less intrusive. He continue to present with residual fregoli delusions, thinking strangers were family but with less intensity. His paranoid delusions significantly decreased. As to why he may have new theme of delusions such as fregoli delusions, which are within the realm of misidentification syndromes, note that his right frontal part of his brain has suffered significant atrophy. Right frontal lesions have been highly associated with spectrum of misidentification syndromes including fregoli type delusions as well as cap [place] type delusions. Per family, he has always thought that he has a and has a daughter. He apparently had a GF who got but given that she also had developmental delays, family had her have an . Since then, pt reports having a baby- never changes in age and when asked if he knows the name, he would say baby has no name. Status at Discharge Cognitive/behavioral status at discharge: Pt with brighter, non labile affect. No aggression towards self or others. No SI/HI. Less paranoid delusions, residual fregoli delusions still present. Sleeping and eating well. He is taking medications as prescribed. No Signs of EPS. Functional status at discharge: independent ambulation Overall status at discharge: patient is progressing back to baseline Time Spent with Patient Time attestation: Total time managing care of this patient today __35__ minutes. Time spent: Greater than 30 minutes Discharge Plan Discharge Anticipated Discharge Date/Time: 07/06/24 08:53 Patient Disposition: Home, Self-Care Discharge Diagnosis: Schizoaffective Disorder Intellectual Disability Referrals: Adult Day Health [Other] - 1 Week (Uche will be able to start at his Adult Day Health program the day after discharge. ) [facility] [Other] - 1 Week (Evan ([facility]) will be able to continue services for Uche upon discharge at 12:00pm) [facility]ASH PERES (Psychiatrist) [Other] - 1 Week (Message was left for psychiatrist office. They will reach out to Uche for follow up appointment.) Andres Munoz MD [Physician] - 1 Week (hx gi bleed, acute but stable iron deficiency anemia on [facility] psych) Physician,Yelena Vera [Primary Care Provider] - 07/23/24 10:45 am ([facility] sido programada con el Dr. Friedman el Yan[facility]al 03/26/24 a las 10:45a.m.) Discharge Medications: New atorvastatin 40 mg Tablet 40 mg PO BEDTIME Qty: 30 0RF nicotine (polacrilex) 2 mg Gum 4 mg buccal Q2H PRN (Reason: Nicotine Cravings) Qty: 60 0RF clonazepam 1 mg Tablet 1 mg PO BID Qty: 60 0RF amlodipine 2.5 mg Tablet 2.5 mg PO DAILY Qty: 30 0RF Protocol: Hold for SBP< HOLD for SBP < : 90 aspirin 81 mg Tablet,Delayed Release (Dr/Ec) 81 mg PO DAILY Qty: 30 0RF risperidone 3 mg Tablet 3 mg PO TID Qty: 90 0RF carbamazepine 200 mg Tablet 200 mg PO BID Qty: 60 0RF trazodone 100 mg Tablet 100 mg PO BEDTIME Qty: 30 0RF metoprolol succinate 25 mg Tablet Extended Release 24 Hr 25 mg PO DAILY Qty: 30 0RF Protocol: Hold for SBP/HR < HOLD for SBP < : 90 HOLD for HR < : 60 albuterol sulfate [Ventolin HFA] 90 mcg/actuation Hfa Aerosol Inhaler 2 puff inhalation Q4H PRN (Reason: Wheezing) Qty: 6.7 0RF ezetimibe 10 mg Tablet 10 mg PO DAILY Qty: 30 0RF ferrous sulfate 324 mg (65 mg iron) Tablet,Delayed Release (Dr/Ec) 324 mg PO DAILY Qty: 30 0RF famotidine 20 mg Tablet 20 mg PO DAILY Qty: 30 0RF ascorbic acid (vitamin C) 250 mg Tablet 250 mg PO DAILY Qty: 30 0RF omeprazole 20 mg Capsule,Delayed Release(Dr/Ec) 20 mg PO DAILY@0630 Qty: 30 0RF Artificial Tears([id number]) 1-0.2-0.2 % Drops 1 drp ophthalmic (eye) Q4H PRN (Reason: Dry Eyes) Qty: 15 0RF folic acid 1 mg Tablet 1 mg PO DAILY Qty: 30 0RF thiamine mononitrate (vit B1) 100 mg Tablet 100 mg PO DAILY Qty: 30 0RF Discontinued atorvastatin 40 mg tablet 40 mg PO BEDTIME Qty: 90 3RF amlodipine 2.5 mg tablet 2.5 mg PO DAILY Qty: 90 3RF ezetimibe 10 mg tablet 10 mg PO DAILY Qty: 90 3RF metoprolol succinate 25 mg tablet extended release 24 hr 25 mg PO DAILY omeprazole 20 mg Capsule,Delayed Release(Dr/Ec) 20 mg PO DAILY@0630 Qty: 30 0RF nicotine (polacrilex) 2 mg Gum 4 mg buccal Q2H PRN (Reason: Nicotine Cravings) 30 Days Qty: 100 0RF benztropine 0.5 mg tablet 0.5 mg PO BID 30 Days Qty: 60 1RF clonazepam 0.5 mg Tablet 0.5 mg PO BID 30 Days Qty: 60 0RF risperidone 3 mg Tablet 3 mg PO DAILY 30 Days Qty: 30 1RF trazodone 100 mg Tablet 100 mg PO BEDTIME 30 Days Qty: 30 1RF mirtazapine 30 mg tablet 30 mg PO BEDTIME 30 Days Qty: 30 1RF risperidone 0.5 mg Tablet 0.5 mg PO BEDTIME 30 Days Qty: 30 1RF aspirin [Aspir-81] 81 mg Tablet,Delayed Release (Dr/Ec) 81 mg PO DAILY albuterol sulfate 90 mcg/actuation Hfa Aerosol Inhaler 2 puff INHALATION Q4H PRN (Reason: Wheezing) ferrous sulfate 325 mg (65 mg iron) tablet,delayed release (DR/EC) 325 mg PO DAILY folic acid 1 mg tablet 1 mg PO DAILY thiamine HCl (vitamin B1) 100 mg tablet 100 mg PO DAILY Discharge Orders: Discharge Order (Routine); Ordered 07/06/24 Ordered By: Georgette Estrella Diet: Regular diet Activity on Discharge: As tolerated Stand Alone Forms: Patient Portal Discharge page, Community Support Print Language: [place] Care Plan Goals: 1. maintain mood 2. No SI/HI 3. No aggression towards self or others Health Concerns: Follow up with PCP for routine care Plan of Treatment: Anemia -continue ferrous sulfate daily and take with vitamin C to improve absorption. Follow up with [facility] gastroenterology for further evaluation and management of anemia. You may need another colonoscopy (referral placed) Assessment: Pt with brighter, non labile affect. No SI/HI. No aggression towards self or others. Residual fregoli delusions, less paranoid delusions. Sleeping and eating well.
[2024-07-06] MEDS: Albuterol Sulfate 90 MCG 8 GM INHALER 2 PUFF INHALE (10:01)
== END 2024-07-06 11:57 | disposition home or self-care (01) | DRG 750 ==
LOC: HO.ED 21:49 → HO.PM5 06-03 15:55 → HO.PGERI 06-17 10:53 → HO.PM5 09-14 16:45
PROVIDERS: Clinical Nurse Specialist Psychiatric/Mental Health, Adult; Physician Assistant; Psychiatry & Neurology Psychiatry; Admitting Provider Psychiatry & Neurology Psychiatry; Emergency Provider Emergency Medicine; Visit Provider Social Worker
DX: F25.9 Schizoaffective disorder, unspecified (principal); J18.9 Pneumonia, unspecified organism; F01.50 Vascular dementia, unspecified severity, without behavioral disturbance, psychotic disturbance, mood disturbance, and anxiety; J98.11 Atelectasis; F81.9 Developmental disorder of scholastic skills, unspecified; D64.9 Anemia, unspecified; I25.10 Atherosclerotic heart disease of native coronary artery without angina pectoris; J44.9 Chronic obstructive pulmonary disease, unspecified; N40.0 Benign prostatic hyperplasia without lower urinary tract symptoms; Z20.822 Contact with and (suspected) exposure to COVID-19; Z79.82 Long term (current) use of aspirin; Z79.899 Other long term (current) drug therapy
CPT/HCPCS: 0241U; 36415; 70450; 71045; 71048; 80048; 80053; 80076; 80156; 80164; 80307; 81001; 82140; 82272; 82607; 82728; 82746; 83540; 83735; 84443; 84484; 85025; 85379; 86780; 87086; 87389; 92950; 93005; 99285; S9485

== ENCOUNTER → 2024-06-03 08:33 | Outpatient (BNV) | payer MEDICAID, SELFPAY | PROVIDERS: Emergency Provider Emergency Medicine; Visit Provider Internal Medicine Cardiovascular Disease | DX: R94.31 Abnormal electrocardiogram [ECG] [EKG] (principal) | CPT/HCPCS: 93010 ==

== ENCOUNTER 2024-06-03 14:33 | Outpatient (BNV) | payer MEDICAID, SELFPAY | END 2024-06-23 01:47 | PROVIDERS: Admitting Provider Psychiatry & Neurology Psychiatry; Emergency Provider Emergency Medicine; Visit Provider Internal Medicine Cardiovascular Disease | DX: R94.31 Abnormal electrocardiogram [ECG] [EKG] (principal) | CPT/HCPCS: 93010 ==

== ENCOUNTER 2024-06-03 14:33 | Outpatient (BNV) | payer MEDICAID, SELFPAY | END 2024-06-10 18:26 | PROVIDERS: Admitting Provider Psychiatry & Neurology Psychiatry; Emergency Provider Emergency Medicine; Visit Provider Internal Medicine | DX: R07.9 Chest pain, unspecified (principal); R94.31 Abnormal electrocardiogram [ECG] [EKG] | CPT/HCPCS: 93010 ==

== ENCOUNTER 2024-06-03 14:33 | Outpatient (BNV) | payer MEDICAID, SELFPAY | END 2024-06-27 21:47 | PROVIDERS: Admitting Provider Psychiatry & Neurology Psychiatry; Emergency Provider Emergency Medicine; Visit Provider Internal Medicine Cardiovascular Disease | DX: R07.9 Chest pain, unspecified (principal); I25.10 Atherosclerotic heart disease of native coronary artery without angina pectoris; R94.31 Abnormal electrocardiogram [ECG] [EKG] | CPT/HCPCS: 93010 ==

== ENCOUNTER 2024-06-03 14:33 | Outpatient (BNV) | payer MEDICAID, SELFPAY | END 2024-06-04 19:11 | PROVIDERS: Admitting Provider Psychiatry & Neurology Psychiatry; Emergency Provider Emergency Medicine; Visit Provider Internal Medicine Cardiovascular Disease | DX: R07.9 Chest pain, unspecified (principal); R94.31 Abnormal electrocardiogram [ECG] [EKG] | CPT/HCPCS: 93010 ==

== ENCOUNTER 2024-06-03 14:33 | Outpatient (BNV) | payer MEDICAID, SELFPAY | END 2024-06-05 21:49 | PROVIDERS: Admitting Provider Psychiatry & Neurology Psychiatry; Emergency Provider Emergency Medicine; Visit Provider Internal Medicine Cardiovascular Disease | DX: R94.31 Abnormal electrocardiogram [ECG] [EKG] (principal) | CPT/HCPCS: 93010 ==

== ENCOUNTER → 2024-06-03 14:33 | Outpatient (BNV) | payer OTHER, SELFPAY | PROVIDERS: Admitting Provider Psychiatry & Neurology Psychiatry; Emergency Provider Emergency Medicine; Visit Provider Psychiatry & Neurology Psychiatry | DX: F25.9 Schizoaffective disorder, unspecified (principal); F81.9 Developmental disorder of scholastic skills, unspecified; I25.10 Atherosclerotic heart disease of native coronary artery without angina pectoris | CPT/HCPCS: 99231; 99232 ==

== ENCOUNTER → 2024-06-03 14:33 | Outpatient (BNV) | payer OTHER, SELFPAY | PROVIDERS: Admitting Provider Psychiatry & Neurology Psychiatry; Emergency Provider Emergency Medicine; Visit Provider Psychiatry & Neurology Psychiatry | DX: F25.9 Schizoaffective disorder, unspecified (principal); F81.9 Developmental disorder of scholastic skills, unspecified; I25.10 Atherosclerotic heart disease of native coronary artery without angina pectoris | CPT/HCPCS: 99231 ==

== ENCOUNTER 2024-08-10 13:51 | Outpatient (AMB) | payer MEDICAID, SELFPAY ==
--- NOTE | 2024-08-10 13:53 | A.OFFVIS_ITS ---
Vital Signs 08/10/24 13:54 Height 5 ft 7 in Weight 164 lb 7.437 oz BMI 25.8 BP 120/62 Blood Pressure Location Lt brachial Position Sitting Pulse 46 L Pulse Source Monitor Intake Visit Reasons: 4 month follow up Intake Note: 4 mth f/up Nuclear Criticality Safety Engineer Required: No Nuclear Criticality Safety Engineer Name: karina/programming manager Accompanied by: Operations Support Specialist Allergies acetaminophen Allergy (Unknown, Verified 06/02/24 16:01) PANADOL = ACETAMINOPHEN SHELLFISH Allergy (Mild, Uncoded 06/02/24 16:01) PATIENT REPORTS BURNING SENSATION THROUGHOUT OPIATES Allergy (Unknown, Uncoded 06/02/24 16:01) BECAME ADDICTED PANADOL Allergy (Unknown, Uncoded 06/02/24 16:01) UNKNOWN Medication List - Last Reconciled 08/10/24 by Bronson Butler MD albuterol sulfate 90 mcg/actuation (Ventolin HFA) 2 puffs inhalation Q4H PRN amlodipine 2.5 mg See Protocol PO DAILY ascorbic acid (vitamin C) 250 mg PO DAILY aspirin 81 mg PO DAILY atorvastatin 40 mg PO BEDTIME carbamazepine 200 mg PO BID clonazepam 1 mg PO BID ezetimibe 10 mg PO DAILY famotidine 20 mg PO DAILY ferrous sulfate 324 mg PO DAILY folic acid 1 mg PO DAILY metoprolol succinate ER 25 mg See Protocol PO DAILY nicotine (polacrilex) 4 mg buccal Q2H PRN omeprazole 20 mg PO DAILY@0630 peg [id number] 1-0.2-0.2 % (Artificial Tears ([id number])) 1 drp ophthalmic (eye) Q4H PRN risperidone 3 mg PO TID thiamine mononitrate (vit B1) 100 mg PO DAILY trazodone 100 mg PO BEDTIME HPI Comments Details: 58-year-old gentleman here for follow-up. He has history of coronary disease with previous PCI. Recently had chest discomfort and underwent Lexiscan which was normal. In the interim he has been admitted to hospital with severe anemia and GI blood loss. He was transfused and his Brilinta was stopped. He was sent home with baby aspirin. He underwent endoscopy which showed duodenitis but did not show any obvious reason for bleeding. He has been on omeprazole. He is supposed to be on baby aspirin. He had blood workup today to reassess his anemia. Denying any chest discomfort. He is saying his taking his medications regularly. He was accompanied by nurse from [facility]. 07/08/23: He returns for follow-up. He is denying any exertional symptoms. No chest discomfort shortness of breath in particular. Taking medications regularly. He is on baby aspirin. He had repeat blood workup done by his primary care physician as per the ENTRY LEVEL INSTALLATION TECHNICIAN and hemoglobin was stable. No bleeding concerns currently. 06/13/2023: He returns for follow-up. He is accompanied by his ENTRY LEVEL INSTALLATION TECHNICIAN. He is saying her off and on he gets left-sided discomfort in the chest. He is a vague historian but the story sounds quite non anginal. His blood pressure control is good. Taking medications regularly. No bleeding reported on follow-up. He is taking baby aspirin. 08/10/2024: Here for follow-up. He is accompanied by his ENTRY LEVEL INSTALLATION TECHNICIAN. Denying chest pain or shortness of breath. It appears he had a major psychotic event and his medications were adjusted. His risperidone has been increased. He is noted to be bradycardic but is asymptomatic. He has sinus bradycardia on the EKG. [facility] Medical History Schizoaffective disorder History of hepatitis C CAD (coronary artery disease) (~2019) Chest pain Palpitations Hypertension Hyperlipidemia History of ST elevation myocardial infarction (STEMI) (~2019) COPD (chronic obstructive pulmonary disease) Cough Nicotine dependence, cigarettes, uncomplicated Tubular adenoma BPH (benign prostatic hyperplasia) Surgical History History of heart artery stent (~2019) History of colonoscopy (~2021) History of esophagogastroduodenoscopy (EGD) (~2021) History of right inguinal hernia repair (~2003) History of left inguinal hernia repair (~2007) Family History Father Edema Mother Developmental delay Social History Household Members: Family Housing: Apartment Do you presently have visiting nurse or other home services: Yes Unable to assess alcohol history related to: Unable to respond Alcohol intake: never Patient Tobacco Use Status: Never used Tobacco Tobacco use type: Cigarette Cigarette Packs Per Day: 1 Cigarettes Per Day: 20.0 Years Smoked: onset 12yo, 1ppd x 44yrs, 40pyh - e-Cigarette/Vaping Use: Never Used Second Hand Smoke Exposure: No Substance Use Type: Marijuana service: No Current occupational status: disabled Sexual orientation: Straight/Heterosexual Review of Systems Const Denies chills, Denies fatigue, Denies fever(s), Denies frequent falls, Denies weakness, Denies weight gain and Denies weight loss ENT Denies dizziness Card Denies chest pain, Denies leg edema, Denies lightheadedness, Denies palpitations, Denies dyspnea and Denies dyspnea on exertion Resp Denies cough, Denies dyspnea and Denies dyspnea on exertion GI Denies hematochezia Musc Denies abnormal gait, Denies muscle weakness, Denies numbness, Denies radiating pain into limb and Denies tingling Neuro Denies abnormal gait, Denies dizziness, Denies frequent falls, Denies numbness, Denies tingling and Denies weakness Endo Denies fatigue and Denies palpitations Physical Exam Vital Signs: Last Vital Signs Pulse 46 L 08/10/24 13:54 BP 120/62 08/10/24 13:54 BMI result Body Mass Index 25.8 GENERAL APPEARANCE: in no acute distress. NECK/THYROID: no carotid bruit, no jugular venous distention. SKIN: no suspicious lesions, warm and dry. HEART: no murmurs, regular rate and rhythm, bradycardic. LUNGS: Clear to auscultation. ABDOMEN: normal, bowel sounds present, soft, nontender, nondistended. EXTREMITIES: no clubbing, cyanosis, or edema. PERIPHERAL PULSES: equal. Office Procedures EKG Details: Sinus bradycardia 46 beats per minute, inferior infarct, QTC 411 milliseconds. [id number], Complete Assessment & Plan Assessment & Plan (1) Hypertension: Code(s): I10 - Essential (primary) hypertension Category: Medical (2) Stable angina: Code(s): I20.89 - Other forms of angina pectoris Category: Medical (3) Sinus bradycardia: Code(s): R00.1 - Bradycardia, unspecified Category: Medical Plan Pleasant 59 gentleman who is here for follow-up. He has previous history of inferior wall [place] with primary PCI to RCA. Denying any anginal symptoms. Blood pressure is well controlled. He had psychotic event recently and was hospitalized and his risperidone has been increased. He has asymptomatic sinus bradycardia currently. This is due to risperidone. He is on low-dose metoprolol. He is completely asymptomatic currently. No changes in medications recommended currently. If he has any dizziness or lightheadedness then Toprol can be discontinued. He will see us back in 6 months. Thank you for allowing me to participate in the care of your patient. Please feel free to contact me if you have any questions. Coding Level of Care Code Est Pt Level 4 (21257) Diagnoses Hypertension I10 Stable angina I20.89 Sinus bradycardia R00.1 CPT Codes EKG - CPT: 77201-[id number], Complete ([id number])
[2024-08-10 13:54] VITALS: BP 120/62; PULSE 46; BMI 25.8
== END 2024-08-10 14:16 | disposition home or self-care (01) ==
PROVIDERS: Visit Provider Internal Medicine Cardiovascular Disease
DX: I10 Essential (primary) hypertension (principal); I20.89 Other forms of angina pectoris; R00.1 Bradycardia, unspecified
CPT/HCPCS: 93010; 99214

== ENCOUNTER → 2024-08-10 13:51 | Outpatient (BNVA) | payer MEDICAID, SELFPAY | PROVIDERS: Visit Provider Internal Medicine Cardiovascular Disease | DX: I25.10 Atherosclerotic heart disease of native coronary artery without angina pectoris (principal); I10 Essential (primary) hypertension; I20.89 Other forms of angina pectoris; R00.1 Bradycardia, unspecified | CPT/HCPCS: 93005; 99212 ==

== ENCOUNTER 2025-02-08 13:18 | Outpatient (AMB) | payer MEDICAID, SELFPAY ==
[2025-02-08 13:54] VITALS: BP 110/62; PULSE 86; BMI 26.0
--- NOTE | 2025-02-08 13:54 | MHC.OFFVIS ---
Vital Signs 02/08/25 13:54 Height 5 ft 7 in Weight 165 lb 12.602 oz BMI 26.0 BP 110/62 Blood Pressure Location Lt brachial Position Sitting Pulse 86 Pulse Source Pulse Oximeter Intake Visit Reasons: 6 month follow up Intake Note: 6 mth f/up Paper Hanger Required: No Accompanied by: Granite Fabricator Allergies acetaminophen Allergy (Unknown, Verified 06/02/24 16:01) PANADOL = ACETAMINOPHEN SHELLFISH Allergy (Mild, Uncoded 06/02/24 16:01) PATIENT REPORTS BURNING SENSATION THROUGHOUT OPIATES Allergy (Unknown, Uncoded 06/02/24 16:01) BECAME ADDICTED PANADOL Allergy (Unknown, Uncoded 06/02/24 16:01) UNKNOWN Medication List - Last Reconciled 02/08/25 by Bronson Butler MD albuterol sulfate 90 mcg/actuation (Ventolin HFA) 2 puffs inhalation Q4H PRN amlodipine 2.5 mg See Protocol PO DAILY ascorbic acid (vitamin C) 250 mg PO DAILY aspirin 81 mg PO DAILY atorvastatin 40 mg PO BEDTIME carbamazepine 200 mg PO BID clonazepam 1 mg PO BID ezetimibe 10 mg PO DAILY famotidine 20 mg PO DAILY ferrous sulfate 324 mg PO DAILY folic acid 1 mg PO DAILY metoprolol succinate ER 25 mg See Protocol PO DAILY nicotine (polacrilex) 4 mg buccal Q2H PRN omeprazole 20 mg PO DAILY@0630 peg [id number] 1-0.2-0.2 % (Artificial Tears ([id number])) 1 drp ophthalmic (eye) Q4H PRN risperidone 3 mg PO TID thiamine mononitrate (vit B1) 100 mg PO DAILY trazodone 100 mg PO BEDTIME HPI Comments Details: 59-year-old gentleman here for follow-up. He has history of coronary disease with previous PCI. Recently had chest discomfort and underwent Lexiscan which was normal. In the interim he has been admitted to hospital with severe anemia and GI blood loss. He was transfused and his Brilinta was stopped. He was sent home with baby aspirin. He underwent endoscopy which showed duodenitis but did not show any obvious reason for bleeding. He has been on omeprazole. He is supposed to be on baby aspirin. He had blood workup today to reassess his anemia. Denying any chest discomfort. He is saying his taking his medications regularly. He was accompanied by nurse from [facility]. 07/08/23: He returns for follow-up. He is denying any exertional symptoms. No chest discomfort shortness of breath in particular. Taking medications regularly. He is on baby aspirin. He had repeat blood workup done by his primary care physician as per the AIR ANALYSIS TECHNICIAN and hemoglobin was stable. No bleeding concerns currently. 06/13/2023: He returns for follow-up. He is accompanied by his AIR ANALYSIS TECHNICIAN. He is saying her off and on he gets left-sided discomfort in the chest. He is a vague historian but the story sounds quite non anginal. His blood pressure control is good. Taking medications regularly. No bleeding reported on follow-up. He is taking baby aspirin. 08/10/2024: Here for follow-up. He is accompanied by his AIR ANALYSIS TECHNICIAN. Denying chest pain or shortness of breath. It appears he had a major psychotic event and his medications were adjusted. His risperidone has been increased. He is noted to be bradycardic but is asymptomatic. He has sinus bradycardia on the EKG. 02/08/2025: He is here for follow-up. Denying chest pain or shortness of breath. He continues to smoke unfortunately. He is saying he can not stop smoking because he gets very anxious. We discussed about smoking cessation because he has known history of coronary disease and previous PCI. He is saying he is exercising with some weights although his mechanics supervisor he is saying that he is not very active. Overall denying any symptoms and appears to be clinically stable. [facility] Medical History Schizoaffective disorder History of hepatitis C CAD (coronary artery disease) (~2019) Chest pain Palpitations Hypertension Hyperlipidemia History of ST elevation myocardial infarction (STEMI) (~2019) COPD (chronic obstructive pulmonary disease) Cough Nicotine dependence, cigarettes, uncomplicated Tubular adenoma BPH (benign prostatic hyperplasia) Surgical History History of heart artery stent (~2019) History of colonoscopy (~2021) History of esophagogastroduodenoscopy (EGD) (~2021) History of right inguinal hernia repair (~2003) History of left inguinal hernia repair (~2007) Family History Father Edema Mother Developmental delay Social History Household Members: Family Housing: Apartment Do you presently have visiting nurse or other home services: Yes Unable to assess alcohol history related to: Unable to respond Alcohol intake: never Patient Tobacco Use Status: Never used Tobacco Tobacco use type: Cigarette Cigarette Packs Per Day: 1 Cigarettes Per Day: 20.0 Years Smoked: onset 12yo, 1ppd x 44yrs, 40pyh - e-Cigarette/Vaping Use: Never Used Second Hand Smoke Exposure: No Substance Use Type: Marijuana service: No Current occupational status: disabled Sexual orientation: Straight/Heterosexual Review of Systems Const Denies chills, Denies fatigue, Denies fever(s), Denies frequent falls, Denies weakness, Denies weight gain and Denies weight loss ENT Denies dizziness Card Denies chest pain, Denies leg edema, Denies lightheadedness, Denies palpitations, Denies dyspnea and Denies dyspnea on exertion Resp Denies cough, Denies dyspnea and Denies dyspnea on exertion GI Denies hematochezia Musc Denies abnormal gait, Denies muscle weakness, Denies numbness, Denies radiating pain into limb and Denies tingling Neuro Denies abnormal gait, Denies dizziness, Denies frequent falls, Denies numbness, Denies tingling and Denies weakness Endo Denies fatigue and Denies palpitations Physical Exam Vital Signs: Last Vital Signs Pulse 86 02/08/25 13:54 BP 110/62 02/08/25 13:54 BMI result Body Mass Index 26.0 GENERAL APPEARANCE: in no acute distress. NECK/THYROID: no carotid bruit, no jugular venous distention. SKIN: no suspicious lesions, warm and dry. HEART: no murmurs, regular rate and rhythm. LUNGS: Clear to auscultation. ABDOMEN: normal, bowel sounds present, soft, nontender, nondistended. EXTREMITIES: no clubbing, cyanosis, or edema. PERIPHERAL PULSES: equal. Assessment & Plan Assessment & Plan (1) Stable angina: Code(s): I20.89 - Other forms of angina pectoris Category: Medical (2) Hypertension: Code(s): I10 - Essential (primary) hypertension Category: Medical Plan 59-year-old gentleman with history of coronary disease with previous inferior wall [place] with primary PCI to right coronary artery. He is not complaining of any anginal symptoms. Blood pressure is stable currently. Same medications for now. He will follow-up with us in 6 months. Thank you for allowing me to participate in the care of your patient. Please feel free to contact me if you have any questions. Coding Level of Care Code Est Pt Level 4 (16683) Diagnoses Stable angina I20.89 Hypertension I10
== END 2025-02-08 14:16 | disposition home or self-care (01) ==
PROVIDERS: Visit Provider Internal Medicine Cardiovascular Disease
DX: I20.89 Other forms of angina pectoris (principal); I10 Essential (primary) hypertension
CPT/HCPCS: 99214

== ENCOUNTER → 2025-02-08 13:18 | Outpatient (BNVA) | payer MEDICAID, SELFPAY | PROVIDERS: Visit Provider Internal Medicine Cardiovascular Disease | DX: I20.89 Other forms of angina pectoris (principal); I10 Essential (primary) hypertension; I25.10 Atherosclerotic heart disease of native coronary artery without angina pectoris; F17.210 Nicotine dependence, cigarettes, uncomplicated | CPT/HCPCS: 99212 ==

== ENCOUNTER 2025-04-26 00:44 | Emergency (ER) | payer MEDICAID, SELFPAY ==
[2025-04-26 01:02] VITALS: BMI 28.3
--- NOTE | 2025-04-26 02:10 | ED_ITS ---
HPI - General Adult General Chief complaint: General Medical Stated complaint: ETOH, hysterical crying w/ no explanation Time Seen by Provider: 04/26/25 01:03 Source: patient Mode of arrival: EMS Limitations: no limitations History of Present Illness ED Provider: HPI narrative: Patient's history of anxiety schizoaffective disorder came as his friend alcoholic brought by EMS after arrival in the ER patient has been very anxious lower want to be seen denies any SI or HI Related Data Previous Rx's ?Medication ?Instructions ?Recorded albuterol sulfate 90 mcg/actuation 2 puff inhalation Q4H PRN Wheezing 07/06/24 aerosol inhaler (Ventolin HFA) #6.7 grams ascorbic acid (vitamin C) 250 mg 250 mg PO DAILY #30 tabs 07/06/24 tablet aspirin 81 mg tablet,delayed 81 mg PO DAILY #30 tabs 07/06/24 release carbamazepine 200 mg tablet 200 mg PO BID #60 tabs 07/06/24 clonazepam 1 mg tablet 1 mg PO BID #60 tabs 07/06/24 ezetimibe 10 mg tablet 10 mg PO DAILY #30 tabs 07/06/24 famotidine 20 mg tablet 20 mg PO DAILY #30 tabs 07/06/24 ferrous sulfate 324 mg (65 mg 324 mg PO DAILY #30 tabs 07/06/24 iron) tablet,delayed release folic acid 1 mg tablet 1 mg PO DAILY #30 tabs 07/06/24 metoprolol succinate 25 mg 25 mg PO DAILY #30 tabs 07/06/24 tablet,extended release 24 hr nicotine (polacrilex) 2 mg gum 4 mg buccal Q2H PRN Nicotine 07/06/24 Cravings #60 ea omeprazole 20 mg capsule,delayed 20 mg PO DAILY@0630 #30 caps 07/06/24 release peg [id number] 1 1 drp ophthalmic (eye) Q4H PRN Dry 07/06/24 %-0.2 %-0.2 % eye drops Eyes #15 mL (Artificial Tears ([id number])) risperidone 3 mg tablet 3 mg PO TID #90 tabs 07/06/24 thiamine mononitrate (vit B1) 100 100 mg PO DAILY #30 tabs 07/06/24 mg tablet trazodone 100 mg tablet 100 mg PO BEDTIME #30 tabs 07/06/24 amlodipine 2.5 mg tablet 2.5 mg PO DAILY #90 tabs 03/29/25 atorvastatin 40 mg tablet 40 mg PO BEDTIME #90 tabs 03/29/25 Allergies Allergy/AdvReac Type Severity Reaction Status Date / Time acetaminophen Allergy Unknown PANADOL = Verified 04/26/25 01:05 ACETAMINOPHEN SHELLFISH Allergy Mild PATIENT Uncoded 04/26/25 01:05 REPORTS BURNING SENSATION THROUGHOUT OPIATES Allergy Unknown BECAME Uncoded 04/26/25 01:05 ADDICTED PANADOL Allergy Unknown UNKNOWN Uncoded 04/26/25 01:05 Review of Systems Review of Systems: Yes all other systems are reviewed and are negative [facility] Past Medical History Medical History Schizoaffective disorder History of hepatitis C CAD (coronary artery disease) (~2019) Chest pain Palpitations Hypertension Hyperlipidemia History of ST elevation myocardial infarction (STEMI) (~2019) COPD (chronic obstructive pulmonary disease) Cough Nicotine dependence, cigarettes, uncomplicated Tubular adenoma BPH (benign prostatic hyperplasia) Surgical History History of heart artery stent (~2019) History of colonoscopy (~2021) History of esophagogastroduodenoscopy (EGD) (~2021) History of right inguinal hernia repair (~2003) History of left inguinal hernia repair (~2007) Family History Family History Father Edema Mother Developmental delay Social History Social History Household Members: Family Housing: Apartment Do you presently have visiting nurse or other home services: Yes Unable to assess alcohol history related to: Unable to respond Alcohol intake: never Patient Tobacco Use Status: Never used Tobacco Tobacco use type: Cigarette Cigarette Packs Per Day: 1 Cigarettes Per Day: 20.0 Years Smoked: onset 12yo, 1ppd x 46yrs, 40pyh - e-Cigarette/Vaping Use: Never Used Second Hand Smoke Exposure: No Substance Use Type: Marijuana Advance Directives: No Advance Directives Information Provided: No Do you have a plan to hurt others: No Plan service: No Current occupational status: disabled Sexual orientation: Straight/Heterosexual Physical Exam ED Vital Signs: BMI result Body Mass Index 28.3 Appearance: Alert. Oriented X3. No acute distress. Very anxious Eyes: PERRLA, No Nystagmus ENT: Pharynx normal. Oral Mucosa moist Neck: Normal inspection. Neck supple. CVS: Normal heart rate and rhythm. Pulses normal. Respiratory: No respiratory distress. Equal air entry bilateral, no wheezing/rales/rhonchi Abdomen: Soft and nontender. Bowel sounds are present, no mass palpable, no CVA tenderness Skin: Skin warm and dry. Normal skin color. Normal skin turgor. Extremities: No lower extremity edema. No calf tenderness psych: Denies any HI or SI anxious Neuro: Oriented X 3. No motor deficit. No sensory deficit.No cerebellar signs , cranial nerves II-XII intact Medical Decision Making Medical Decision Making MDM Narrative: Patient has schizoaffective disorder with anxiety denies any SI or HI does not want to be seen discharge patient home walking in steady gait Discharge Plan Discharge Clinical Impression: Anxiety Patient Disposition: Home, Self-Care Instructions: Anxiety (ED) Additional Instructions: Take medication as prescribed by your PCP and follow up with your therapist Prescriptions: No Action amlodipine 2.5 mg tablet 2.5 mg PO DAILY Qty: 90 3RF atorvastatin 40 mg tablet 40 mg PO BEDTIME Qty: 90 3RF nicotine (polacrilex) 2 mg Gum 4 mg buccal Q2H PRN (Reason: Nicotine Cravings) Qty: 60 0RF clonazepam 1 mg Tablet 1 mg PO BID Qty: 60 0RF aspirin 81 mg Tablet,Delayed Release (Dr/Ec) 81 mg PO DAILY Qty: 30 0RF risperidone 3 mg Tablet 3 mg PO TID Qty: 90 0RF carbamazepine 200 mg Tablet 200 mg PO BID Qty: 60 0RF trazodone 100 mg Tablet 100 mg PO BEDTIME Qty: 30 0RF metoprolol succinate 25 mg Tablet Extended Release 24 Hr 25 mg PO DAILY Qty: 30 0RF Protocol: Hold for SBP/HR < HOLD for SBP < : 90 HOLD for HR < : 60 albuterol sulfate [Ventolin HFA] 90 mcg/actuation Hfa Aerosol Inhaler 2 puff inhalation Q4H PRN (Reason: Wheezing) Qty: 6.7 0RF ezetimibe 10 mg Tablet 10 mg PO DAILY Qty: 30 0RF ferrous sulfate 324 mg (65 mg iron) Tablet,Delayed Release (Dr/Ec) 324 mg PO DAILY Qty: 30 0RF famotidine 20 mg Tablet 20 mg PO DAILY Qty: 30 0RF ascorbic acid (vitamin C) 250 mg Tablet 250 mg PO DAILY Qty: 30 0RF omeprazole 20 mg Capsule,Delayed Release(Dr/Ec) 20 mg PO DAILY@0630 Qty: 30 0RF Artificial Tears([id number]) 1-0.2-0.2 % Drops 1 drp ophthalmic (eye) Q4H PRN (Reason: Dry Eyes) Qty: 15 0RF folic acid 1 mg Tablet 1 mg PO DAILY Qty: 30 0RF thiamine mononitrate (vit B1) 100 mg Tablet 100 mg PO DAILY Qty: 30 0RF Print Language: [place]
[2025-04-26 02:23] VITALS: BP 0/0; PULSE 0; RESP 0; TEMP -17.7; TEMP 0; O2SAT 0
== END 2025-04-26 01:45 | disposition home or self-care (01) ==
PROVIDERS: Emergency Provider Internal Medicine
DX: F25.1 Schizoaffective disorder, depressive type (principal); F41.1 Generalized anxiety disorder; Z87.891 Personal history of nicotine dependence; Z79.899 Other long term (current) drug therapy
CPT/HCPCS: 99282

== ENCOUNTER 2025-04-26 02:29 | Inpatient (IN) | payer MEDICAID, OTHER, SELFPAY ==
[2025-04-26] VITALS (8 sets, daily range): BP systolic 103–143; BP diastolic 63–85; PULSE 79–115; RESP 15–26; TEMP 36.1–37.1; O2SAT 95–99; BMI 28.0
--- NOTE | 2025-04-26 02:33 | ED.PSYCH ---
HPI - Psych General Chief Complaint: Psychiatric Symptoms Stated Complaint: Section 12 Schizophrenia nonmed compliant Time Seen by Provider: 04/26/25 02:32 Source: EMS Mode of arrival: EMS Limitations: other (Not cooperative) History of Present Illness ED Provider: HPI Narrative: Patient's history of schizophrenia just came in left as did not want to be seen and got paranoid brought by EMS again as patient was very aggressive in the family called EMS and told them that he is not taking his medication patient is acting vaguely when he arrived agitated getting off the stretcher and wanted to escape from the ER denies any alcohol or substance abuse Related Data Previous Rx's ?Medication ?Instructions ?Recorded albuterol sulfate 90 mcg/actuation 2 puff inhalation Q4H PRN Wheezing 07/06/24 aerosol inhaler (Ventolin HFA) #6.7 grams ascorbic acid (vitamin C) 250 mg 250 mg PO DAILY #30 tabs 07/06/24 tablet aspirin 81 mg tablet,delayed 81 mg PO DAILY #30 tabs 07/06/24 release carbamazepine 200 mg tablet 200 mg PO BID #60 tabs 07/06/24 clonazepam 1 mg tablet 1 mg PO BID #60 tabs 07/06/24 ezetimibe 10 mg tablet 10 mg PO DAILY #30 tabs 07/06/24 famotidine 20 mg tablet 20 mg PO DAILY #30 tabs 07/06/24 ferrous sulfate 324 mg (65 mg 324 mg PO DAILY #30 tabs 07/06/24 iron) tablet,delayed release folic acid 1 mg tablet 1 mg PO DAILY #30 tabs 07/06/24 metoprolol succinate 25 mg 25 mg PO DAILY #30 tabs 07/06/24 tablet,extended release 24 hr nicotine (polacrilex) 2 mg gum 4 mg buccal Q2H PRN Nicotine 07/06/24 Cravings #60 ea omeprazole 20 mg capsule,delayed 20 mg PO DAILY@0630 #30 caps 07/06/24 release peg [id number] 1 1 drp ophthalmic (eye) Q4H PRN Dry 07/06/24 %-0.2 %-0.2 % eye drops Eyes #15 mL (Artificial Tears ([id number])) risperidone 3 mg tablet 3 mg PO TID #90 tabs 07/06/24 thiamine mononitrate (vit B1) 100 100 mg PO DAILY #30 tabs 07/06/24 mg tablet trazodone 100 mg tablet 100 mg PO BEDTIME #30 tabs 07/06/24 amlodipine 2.5 mg tablet 2.5 mg PO DAILY #90 tabs 03/29/25 atorvastatin 40 mg tablet 40 mg PO BEDTIME #90 tabs 03/29/25 Allergies Allergy/AdvReac Type Severity Reaction Status Date / Time acetaminophen Allergy Unknown PANADOL = Verified 04/26/25 02:41 ACETAMINOPHEN SHELLFISH Allergy Mild PATIENT Uncoded 04/26/25 02:41 REPORTS BURNING SENSATION THROUGHOUT OPIATES Allergy Unknown BECAME Uncoded 04/26/25 02:41 ADDICTED PANADOL Allergy Unknown UNKNOWN Uncoded 04/26/25 02:41 Review of Systems Review of Systems: Yes all other systems are reviewed and are negative [facility] Past Medical History Medical History Schizoaffective disorder History of hepatitis C CAD (coronary artery disease) (~2019) Chest pain Palpitations Hypertension Hyperlipidemia History of ST elevation myocardial infarction (STEMI) (~2019) COPD (chronic obstructive pulmonary disease) Cough Nicotine dependence, cigarettes, uncomplicated Tubular adenoma BPH (benign prostatic hyperplasia) Surgical History History of heart artery stent (~2019) History of colonoscopy (~2021) History of esophagogastroduodenoscopy (EGD) (~2021) History of right inguinal hernia repair (~2003) History of left inguinal hernia repair (~2007) Family History Family History Father Edema Mother Developmental delay Social History Social History Household Members: Family Housing: Apartment Do you presently have visiting nurse or other home services: Yes Unable to assess alcohol history related to: Unable to respond Alcohol intake: never Patient Tobacco Use Status: Never used Tobacco Tobacco use type: Cigarette Cigarette Packs Per Day: 1 Cigarettes Per Day: 20.0 Years Smoked: onset 12yo, 1ppd x 44yrs, 40pyh - Smoked in Last 30 Days: No e-Cigarette/Vaping Use: Never Used Second Hand Smoke Exposure: No Use of substances other than those prescribed or required for medical reasons: No Substance Use Type: Marijuana Advance Directives: No Advance Directives Information Provided: No Do you have a plan to hurt others: No Plan service: No Current occupational status: disabled Sexual orientation: Straight/Heterosexual Physical Exam Vital Signs: Vital Signs: Last Vital Signs Temp 97.6 F 04/26/25 12:00 Pulse 103 H 04/26/25 12:00 Resp 16 04/26/25 12:00 BP 139/82 04/26/25 12:00 Pulse Ox 96 04/26/25 12:00 O2 Del Method Room Air 04/26/25 12:00 BMI result Body Mass Index 28.0 Appearance: Alert. Oriented X3. Agitated No acute distress. Eyes: PERRLA, No Nystagmus ENT: Pharynx normal. Oral Mucosa moist Neck: Normal inspection. Neck supple. CVS: Normal heart rate and rhythm. Pulses normal. Respiratory: No respiratory distress. Equal air entry bilateral, no wheezing/rales/rhonchi Abdomen: Soft and nontender. Bowel sounds are present, no mass palpable, no CVA tenderness Skin: Skin warm and dry. Normal skin color. Normal skin turgor. Extremities: No lower extremity edema. No calf tenderness psych: Patient is very agitated paranoid trying to get up from the bed tearful Neuro: Oriented X 3. No motor deficit. No sensory deficit.No cerebellar signs , cranial nerves II-XII intact Medications Administered Discontinued Medications Generic Name Dose Route Start Last Admin Trade Name Eduardoq PRN Reason Stop Dose Admin Diazepam 4 mg 04/26/25 12:02 04/26/25 13:10 Diazepam 2 Mg Tablet PO 04/26/25 12:03 4 mg ONCE ONE Administration Diphenhydramine HCl 50 mg 04/26/25 02:32 04/26/25 02:38 Diphenhydramine Hcl 50 Mg/Ml Vial IM 04/26/25 02:33 50 mg ONCE ONE Administration Diphenhydramine HCl 50 mg 04/26/25 05:57 04/26/25 06:00 Diphenhydramine Hcl 25 Mg Capsule PO 04/26/25 05:58 50 mg ONCE ONE Administration Diphenhydramine HCl 50 mg 04/26/25 14:08 04/26/25 14:15 Diphenhydramine Hcl 25 Mg Capsule PO 04/26/25 14:09 50 mg ONCE ONE Administration Haloperidol Lactate 5 mg 04/26/25 02:32 04/26/25 02:38 Haloperidol Lactate 5 Mg/Ml Vial IM 04/26/25 02:33 5 mg STAT STA Administration Ibuprofen 400 mg 04/26/25 12:02 04/26/25 12:38 Ibuprofen 400 Mg Tablet PO 04/26/25 12:03 400 mg ONCE ONE Administration Lorazepam 2 mg 04/26/25 04:37 04/26/25 05:48 Lorazepam 1 Mg Tablet PO 04/26/25 04:38 2 mg ONCE ONE Administration Lorazepam 2 mg 04/26/25 14:08 04/26/25 14:15 Lorazepam 1 Mg Tablet PO 04/26/25 14:09 2 mg ONCE ONE Administration Midazolam HCl 2 mg 04/26/25 02:32 04/26/25 02:38 Midazolam Hcl 2 Mg/2 Ml Vial IM 04/26/25 02:33 2 mg ONCE ONE Administration Olanzapine 10 mg 04/26/25 12:34 04/26/25 12:38 Olanzapine 10 Mg Tablet PO 04/26/25 12:35 10 mg ONCE ONE Administration Medical Decision Making Medical Decision Making MDM Narrative: Patient with history of schizophrenia anxiety not noncompliant to his medication came here 2nd time sent from went home by the family because patient has been very aggressive and agitated section 12 by PD will give him medications Haldol and Benadryl and Versed to decrease his agitation care team was consulted Time: 10:01 Date: 04/26/25 Provider: Eron Vega, DO Patient in physician observation for psychiatric evaluation.? had to be sedated overnight. VS stable.? Patient pending CARE team evaluation. Will continue to monitor. Time: 14:59 Date: 04/26/25 Provider: Eron Vega, DO Physician observation ended. Patient has been cleared for discharge by the CARE team. Patient to be admitted as inpatient to psychiatry. Differential Diagnosis Differential Diagnoses: The differential diagnosis associated with the presentation includes Lab Data MDM Lab Attestation statement: I reviewed the patient's lab results. 04/26/25 03:48 04/26/25 03:48 Labs: Lab Results 04/26/25 04/26/25 Range/Units 03:48 11:30 WBC 11.3 H (4.8-10.8) X10*3/uL RBC 5.23 (4.60-5.80) X10*6/uL Hgb 14.4 (14.0-18.0) g/dl Hct 43.3 (42.0-52.0) % MCV 82.8 (80.0-98.0) fL MCH 27.5 (27.0-33.0) pg MCHC 33.3 (31.0-36.0) g/dl RDW 15.9 (11.0-16.0) % Plt Count 206 (160-400) X10*3/uL MPV 9.9 (9.4-12.4) fL Immature Gran % (Auto) 0.3 (0.0-0.4) % Neut % (Auto) 70.7 (45-73) % Lymph % (Auto) 17.3 L (20-40) % Benzie % (Auto) 10.7 (2-11) % Eos % (Auto) 0.6 (0-4) % Baso % (Auto) 0.4 (0-2) % Lymph # (Auto) 2.0 (1.2-4.9) X10*3/uL Benzie # (Auto) 1.2 (0.1-1.2) X10*3/uL Eos # (Auto) 0.1 (0.0-0.4) X10*3/uL Baso # (Auto) 0.0 (0.0-0.2) X10*3/uL Abs Immat Gran (auto) 0.03 (0.00-0.03) X10*3/uL Absolute Neuts (auto) 8.0 (2.0-8.3) x10*3/uL Absolute Nucleated RBC 0.000 (0.0-0.012) X10*3/uL Nucleated RBC % (auto) 0.0 (0.0-0.2) /100WBC Sodium 142 (135-145) mmol/L Potassium 3.0 L (3.3-5.1) mmol/L Chloride 108 (96-108) mmol/L Carbon Dioxide 25 (22-29) mmol/L Anion Gap 12 (12-20) BUN 18 H (9-16) mg/dL Creatinine 0.76 (0.5-1.4) mg/dL Estim Creat Clear Calc 94.1 Estimated GFR > 60 Random Glucose 98 (60-115) mg/dL Calcium 9.2 D (8.4-10.2) mg/dL Total Bilirubin 0.7 (0.0-1.0) mg/dL AST 114 H (5-37) U/L ALT 52 H (0-40) U/L Alkaline Phosphatase 94 (39-117) U/L Total Protein 7.6 (6.5-8.0) g/dL Albumin 4.5 (3.5-5.0) g/dL Urine Color Dark Yellow Urine Appearance Clear Urine pH 6.0 (5.0-9.0) Ur Specific [place] >= 1.030 H (1.005-1.025) Urine Protein 30 (1+) H (Neg-Trace) mg/dL Urine Glucose (UA) Negative (Negative) mg/dL Urine Ketones 15 (Negative) mg/dL Urine Blood Negative (Negative) Urine Nitrite Negative (Negative) Ur Leukocyte Esterase Trace H (Negative) Urine RBC 0-2 (0-2) /HPF Urine WBC 0-5 (0-5) /HPF Ur Squamous Epith Cells 0-2 (0-2) /HPF Calcium Oxalate Crystal Present Urine Bacteria None Seen (None Seen) Hyaline Casts 0-2 (0-2) /LPF Urine Opiates Screen Not Detected (Not Detect) Ur Buprenorphine Scrn Not Detected (Not Detect) ng/mL Ur Oxycodone Screen Not Detected (Not Detect) ng/mL Urine Methadone Screen Not Detected (Not Detect) ng/mL Urine Fentanyl Screen Not Detected (Not Detect) Ur Barbiturates Screen Not Detected (Not Detect) Ur Phencyclidine Scrn Not Detected (Not Detect) Ur Amphetamines Screen Not Detected (Not Detect) U Benzodiazepines Scrn POSITIVE H (Not Detect) Urine Cocaine Screen Not Detected (Not Detect) U Marijuana (THC) Screen POSITIVE H (Not Detect) Ethyl Alcohol < 10 mg/dL Discharge Plan Discharge Clinical Impression: Acute anxiety Schizoaffective disorder Qualifiers: Schizoaffective disorder type: unspecified Qualified Code(s): F25.9 - Schizoaffective disorder, unspecified Patient Disposition: Still a Patient Prescriptions: No Action amlodipine 2.5 mg tablet 2.5 mg PO DAILY Qty: 90 3RF atorvastatin 40 mg tablet 40 mg PO BEDTIME Qty: 90 3RF nicotine (polacrilex) 2 mg Gum 4 mg buccal Q2H PRN (Reason: Nicotine Cravings) Qty: 60 0RF clonazepam 1 mg Tablet 1 mg PO BID Qty: 60 0RF aspirin 81 mg Tablet,Delayed Release (Dr/Ec) 81 mg PO DAILY Qty: 30 0RF risperidone 3 mg Tablet 3 mg PO TID Qty: 90 0RF carbamazepine 200 mg Tablet 200 mg PO BID Qty: 60 0RF trazodone 100 mg Tablet 100 mg PO BEDTIME Qty: 30 0RF metoprolol succinate 25 mg Tablet Extended Release 24 Hr 25 mg PO DAILY Qty: 30 0RF Protocol: Hold for SBP/HR < HOLD for SBP < : 90 HOLD for HR < : 60 albuterol sulfate [Ventolin HFA] 90 mcg/actuation Hfa Aerosol Inhaler 2 puff inhalation Q4H PRN (Reason: Wheezing) Qty: 6.7 0RF ezetimibe 10 mg Tablet 10 mg PO DAILY Qty: 30 0RF ferrous sulfate 324 mg (65 mg iron) Tablet,Delayed Release (Dr/Ec) 324 mg PO DAILY Qty: 30 0RF famotidine 20 mg Tablet 20 mg PO DAILY Qty: 30 0RF ascorbic acid (vitamin C) 250 mg Tablet 250 mg PO DAILY Qty: 30 0RF omeprazole 20 mg Capsule,Delayed Release(Dr/Ec) 20 mg PO DAILY@0630 Qty: 30 0RF Artificial Tears([id number]) 1-0.2-0.2 % Drops 1 drp ophthalmic (eye) Q4H PRN (Reason: Dry Eyes) Qty: 15 0RF folic acid 1 mg Tablet 1 mg PO DAILY Qty: 30 0RF thiamine mononitrate (vit B1) 100 mg Tablet 100 mg PO DAILY Qty: 30 0RF Interventions: [place]-Suicide Risk Severity Scale Last Done: 04/26/25 04:07 Print Language: Yakut
--- NOTE | 2025-04-26 02:45 | PC.NURSE ---
PT arrived with PD and EMS, on section 12. Per PD they were called to PTs home where he was reportedly aggressive, punching the cevallos, tearful and uncooperative. family reports that pt has been off his medications for sometime though pt reports he is med complaint. On arrival, pt very tearful, uncooperative and attempting to get off stretcher. Pt unable to follow commands upon entering room, and attempting to elope. 4 point restraints initiated, and IM medications administered as per JAN. 1:1 sitter at bedside for safety. VSS. PT unable to cooperate for labs and EKG at this time. Will attempt when pt is calm. Safety precautions in place. Plan of care ongoing
[2025-04-26 03:53] LABS: MANUAL DIFF FLAG NO
--- OUTSIDE RECORDS SUMMARY | 2025-04-26 03:53 | XMS_ITS | Encounter Summary ---
Author Organization [employer] Address [address] [place] [address] Care Team Providers Care Gang Drill Operator Name Role Phone Lindsey Vivian [facility] Primary Care Provider [phone] Reason for Visit * Reason Onset Date Comments FYI 01/05/2025 Encounter Details Date Type Department Care Team ([facility] Contact Info) Description 01/05/2025 Telephone [facility] [address] [place], [place] [id number] [facility] [address] [place], [place] [id number] FYI Social History Tobacco Use Types Packs/Day Years Used Date Smoking Tobacco: Former Cigarettes 1 40 Passive Smoke Exposure: Current Smokeless Tobacco: Never Alcohol Use Standard Drinks/Week Comments Not Currently 0 (1 standard drink = 0.6 oz pur e alcohol) Depression Answer Date Recorded Patient Health Questionnaire-9 Score 0 05/04/2024 Patient Health Questionnaire-9 Score 0 05/04/2024 Last PHQ-9: Questionnaire Data Not on file 0 05/04/2024 Housing Stability Answer Date Recorded What is your housing situation today? I have kaye lr 05/04/[address] you li ve. Do you have problems with any of the following? None of the above 05/04/2024 Food Insecurity Answer Date Recorded Within the past 12 months, y ou worried that your food would run out before you got money to buy more: Never True 05/04/2024 Within the past 12 months,th e food you bought just didn't last and you didn't have enough money to get more: Never True Transportation Answer Date Recorded In the past 12 months, has l ack of transportation kept you from medical appts, meetings, work or from getting things needed for daily living? No 05/04/2024 Utilities Answer Date Recorded In the past 12 months, has t he electric, gas, oil or water company threatened to shut off services in your home? No 05/04/2024 Depression Answer Date Recorded Patient Health Questionnaire-2 Score 0 05/04/2024 Internet Access Answer Date Recorded Internet Access Q1 No 07/17/2024 Internet Access Q2 Not on file 07/17/2024 Sex and Gender Information Value Date Recorded Sex Assigned at Male 09/17/2022 10:14 AM EDT Legal Sex Male 10:14 AM EDT Gender Identity Male 09/17/2022 10:14 AM EDT Sexual Orientation Don't know 09/17/2022 10 :14 AM EDT documented as of this encounter Miscellaneous Notes * Telephone Encounter - Leyla Mulligan RN - 01/05/2025 2:00 PM EST Telephone call to Morro BULLOCK ,at [facility] [employer] . Morro states the pt fell on the ice in front of his home this morning when leaving his home before getting to the day program . Morro states the pt reported he fell on his knee . Morro states the pt stated his pain at that time was a 2 . Pt denied medication at that time . Morro states the knee area was not swollen , or bruised just slightly red at that time . Morro states the pt was walking normally all day . States the pt left the program for the day . Stated the pt was to go back to the program if he had any pain ,or difficulty walking . Will route this message to the PCP for review. * Telephone Encounter - Mayo Lea - 01/05/2025 11:00 AM EST Tc from Morro with [facility] stating that Pt fell this morning around 9:30 due to the [place] being slippery. Pt hit himself on his knee but when asked if he was in any pain he said that the Pain was a 2/10 so pt denied any pain medication and did not want to go to the Hospital. Contact Morro at [phone] documented in this encounter Plan of Treatment Not on file documented as of this encounter Visit Diagnoses Not on filedocumented in this encounter Additional Health Concerns Assessment Noted Time PHQ-9 Depression Total Score: 0 05/04/20 24 9:15 AM EDT documented as of this encounter Care Teams Gang Drill Operator Relationship Specialty Start Date End Date Vivian Portillo FNP [address] [place] [id number] PCP - General Family Medicine 05/15/22 Kristian Hodge 05/23/24 documented as of this encounter
[2025-04-26 03:54] LABS: Hematocrit 43.3 % (42.0-52.0); Hemoglobin 14.4 g/dl (14.0-18.0); Imm Gran Abs Auto 0.03 X10*3/uL (0.00-0.03); Imm Gran Pct Auto 0.3 % (0.0-0.4); Lymphocytes Absolute Auto 2.0 X10*3/uL (1.2-4.9); Mean Corpuscular HGB Conc 33.3 g/dl (31.0-36.0); Mean Corpuscular Hemoglobin 27.5 pg (27.0-33.0); Mean Corpuscular Volume 82.8 fL (80.0-98.0); NRBC Abs Auto 0.000 X10*3/uL (0.0-0.012); NRBC Pct Auto 0.0 /100WBC (0.0-0.2); Platelet Count 206 X10*3/uL (160-400); Red Blood Count 5.23 X10*6/uL (4.60-5.80); White Blood Count 11.3 X10*3/uL (4.8-10.8)
[2025-04-26 04:12] LABS: Alanine Aminotransferase 52 U/L (0-40); Albumin Level 4.5 g/dL (3.5-5.0); Alkaline Phosphatase 94 U/L (39-117); Anion Gap 12 (12-20); Aspartate Amino Transferase 114 U/L (5-37); Blood Urea Nitrogen 18 mg/dL (9-16); Calcium 9.2 mg/dL (8.4-10.2); Carbon Dioxide 25 mmol/L (22-29); Chloride 108 mmol/L (96-108); Creatinine Clr Calc Pharmacy 94.1; Estimated Glomerular Filt Rate > 60; Potassium 3.0 mmol/L (3.3-5.1); Sodium 142 mmol/L (135-145); Total Protein 7.6 g/dL (6.5-8.0)
--- NOTE | 2025-04-26 04:21 | MHC.EDTECH ---
pts belongings are in the [facility] port on shelf 3
--- NOTE | 2025-04-26 04:34 | PC.NURSE ---
Report given to KOBE Hagen. PT ambulated to moved from main ED to POD with security and foxing closer. No issues reported
--- NOTE | 2025-04-26 04:41 | PC.NURSE ---
Took over care from KOBE Villalpando, pt laying down in bed, warm blanket given. Pt laying down.
--- NOTE | 2025-04-26 05:52 | PC.NURSE ---
pt coming out of room, pt having to be redirected, sandwich, chips, and a drink ,pt upset and tearful
--- NOTE | 2025-04-26 06:05 | PC.NURSE ---
pt redirected, calling continue to keep asking for his mother, pt redirected in bed.
--- NOTE | 2025-04-26 07:13 | PC.NURSE ---
Addendum entered by Selena Clay RN 04/26/25 07:16: Patient 59 yr old Sami-speaking male with schizoaffective disorder, cognitive delay, who lives with his mother, who presents via family for increased paranoia, agitation, anger and confusion. Family thought that patient was not taking all of his medications, Despite this, family reports that his behaviors are worsening. Upon arrival patient required several doses of medication to get his agitation and behavior under control. Patient is resting quietly at this time. Respirations even and non-labored. No distress noted. Original Note: Medical History Schizoaffective disorder History of hepatitis C CAD (coronary artery disease) (~2019) Chest pain Palpitations Hypertension Hyperlipidemia History of ST elevation myocardial infarction (STEMI) (~2019) COPD (chronic obstructive pulmonary disease) Cough Nicotine dependence, cigarettes, uncomplicated Tubular adenoma BPH (benign prostatic hyperplasia)
[2025-04-26 11:39] LABS: Appearance Urine Clear; Glucose Urine UA Negative (Negative); PH 6.0 (5.0-9.0); Specific Gravity - Urine >= 1.030 (1.005-1.025); UMIC TRIGGER UACC YES
[2025-04-26 11:48] LABS: Cannabinoid Screen Urine POSITIVE (Not Detect)
--- NOTE | 2025-04-26 12:09 | PC.NURSE ---
Care team at the bedside.
--- NOTE | 2025-04-26 13:11 | PC.NURSE ---
Patient agitated, restless and intermittently crying. Patient impulsive, manic and disorganized. Refusing to remain in his room, following staff continuously stating macedonian Interpretor utilized but patient does not seem to comprehend. Medicated, and patient proceeded to throw cup of water over the privacy window onto the desk. Pending affect of medication. Security notified and needed to escort patient back to room.
--- NOTE | 2025-04-26 13:38 | PC.NURSE ---
Patient noted to throw his lunch tray in the hallway for no apparent reason. Continues to be agitated and at the desk, wandering the hallway, very agitated and not-directable.
--- NOTE | 2025-04-26 15:30 | PC.NURSE ---
home performance laborer utilized to make sure all the patients needs are met. Per decorative cutting machine tender, communication is tangential, non-sensical and disorganized.
--- NOTE | 2025-04-26 17:09 | MHC.CARE ---
Patient evaluated by the CARE Team, disposition inpatient psychiatric treatment. ED provider, Dr. Vega, updated and in agreement with plan.
[2025-04-26] MEDS: Aspirin Enteric Coated 81 MG TABLET.DR PO (21:07)
[2025-04-26] MEDS: Ferrous Sulfate 324 MG TABLET.DR PO (21:08)
--- NOTE | 2025-04-27 | ECG_ITS ---
Test Reason : PROLONG QT Blood Pressure : */* mmHG Vent. Rate : 105 BPM Atrial Rate : 105 BPM P-R Int : 132 ms QRS Dur : 84 ms QT Int : 366 ms P-R-T Axes : 64 58 51 degrees QTcB Int : 483 ms Sinus tachycardia Inferior infarct (cited on or before 21-Apr-2020) Abnormal ECG When compared with ECG of 27-Jun-2024 21:47, No significant change was found Referred By: Ismael Viveros Electronically Signed By: LUIS ANTONIO VAUGHN MD
[2025-04-27 06:14] VITALS: BP 122/76; PULSE 89; RESP 18; TEMP 36.3; O2SAT 97
--- NOTE | 2025-04-27 07:38 | PC.NURSE ---
Patient 59 yr old Indonesian-speaking male with schizoaffective disorder, cognitive delay, who lives with his mother, who presents via family for increased paranoia, agitation, anger and confusion. Family thought that patient was not taking all of his medications, Despite this, family reports that his behaviors are worsening. Upon arrival patient required several doses of medication to get his agitation and behavior under control. Patient remains restless, perseverative and disorganized. Frequent trips to the desk with multiple requests. Difficult to re-direct. Original Note: Medical History Schizoaffective disorder History of hepatitis C CAD (coronary artery disease) (~2019) Chest pain Palpitations Hypertension Hyperlipidemia History of ST elevation myocardial infarction (STEMI) (~2019) COPD (chronic obstructive pulmonary disease) Cough Nicotine dependence, cigarettes, uncomplicated Tubular adenoma BPH (benign prostatic hyperplasia)
[2025-04-27] MEDS: Ferrous Sulfate 324 MG TABLET.DR PO (09:00)
[2025-04-27] MEDS: Aspirin Enteric Coated 81 MG TABLET.DR PO (09:00)
--- NOTE | 2025-04-27 10:13 | MHC.EDTECH ---
patient ambulated to bathroom , to shower ,AM care done RN aware
--- NOTE | 2025-04-27 11:23 | PC.NURSE ---
Chris ([facility]) [phone]
[2025-04-27 12:36] LABS: Alanine Aminotransferase 54 U/L (0-40); Albumin Level 4.2 g/dL (3.5-5.0); Alkaline Phosphatase 93 U/L (39-117); Anion Gap 10 (12-20); Aspartate Amino Transferase 93 U/L (5-37); Blood Urea Nitrogen 22 mg/dL (9-16); Calcium 9.3 mg/dL (8.4-10.2); Carbon Dioxide 27 mmol/L (22-29); Chloride 105 mmol/L (96-108); Creatinine Clr Calc Pharmacy 103.7; Estimated Glomerular Filt Rate > 60; Potassium 3.4 mmol/L (3.3-5.1); Sodium 139 mmol/L (135-145); Total Protein 7.0 g/dL (6.5-8.0)
[2025-04-27] MEDS: Potassium Chloride Packet 20 MEQ PACKET 40 MEQ PO (13:21)
--- NOTE | 2025-04-27 13:34 | PC.NURSE ---
Report given to Radha BULLOCK. Patient to transition to M3 for continued mental health care.
[2025-04-27 14:38] VITALS: BP 134/73; PULSE 99; RESP 18; TEMP 36.4; O2SAT 97
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
[2025-04-27 17:12] VITALS: BMI 28.1
[2025-04-27 20:00] VITALS: BP 126/85; PULSE 108; RESP 16; TEMP 37.1; O2SAT 98
[2025-04-28 08:00] VITALS: BP 131/69; PULSE 99; RESP 16; TEMP 36.4; O2SAT 98
[2025-04-28 08:10] LABS: Hemoglobin A1C 125.1184 umol/L; Total Hemoglobin (HGBA1C) 3722.4225 umol/L
[2025-04-28 08:16] LABS: Alanine Aminotransferase 57 U/L (0-40); Albumin Level 4.2 g/dL (3.5-5.0); Alkaline Phosphatase 87 U/L (39-117); Anion Gap 10 (12-20); Aspartate Amino Transferase 78 U/L (5-37); Blood Urea Nitrogen 15 mg/dL (9-16); Calcium 9.6 mg/dL (8.4-10.2); Carbon Dioxide 25 mmol/L (22-29); Chloride 107 mmol/L (96-108); Cholesterol 100 mg/dL (<200); Creatinine Clr Calc Pharmacy 112.0; Estimated Glomerular Filt Rate > 60; HDL Cholesterol 35 mg/dL (>40); Potassium 4.0 mmol/L (3.3-5.1); Sodium 138 mmol/L (135-145); Total Protein 7.0 g/dL (6.5-8.0); Triglycerides 75 mg/dL (<150)
[2025-04-28] MEDS: Aspirin Enteric Coated 81 MG TABLET.DR PO (08:24)
[2025-04-28] MEDS: Ferrous Sulfate 324 MG TABLET.DR PO (08:25)
--- NOTE | 2025-04-28 11:19 | P.PNPSI_ITS ---
Subjective Subjective Date of Service: 04/28/25 Reason For Visit: Crisis Subjective Notes: Section 12B Interim History: Active on unit, social with Chadian speaking peers. medication compliant. wood boring machine operator present for assessment. disorganized. Answers questions inappropriately at times. flight of ideas. Stating his brother in law is a multiple times, however unable to explain how that was relevant to the conversation. Overheard making animal noises. Pt reports seeing blood on the cevallos and auditory hallucinations of airplane sounds . denies SI/HI. Per nursing, slept 7 hours last night. Transferred to Geriatric unit for continued care. Medication Compliance: Yes Side effects from medications: No Attending Groups: No Mental Status Exam Mental Status Exam Patient Appearance: Appropriate Patient Orientation: Person, Place and Situation Level of Consciousness: Awake and Alert Patient Behavior: Cooperative and Good Eye Contact Mood Description: Calm Affect Description: Blunted Ability to Follow Directions: Good Speech Pattern: Clear Hallucinations: Auditory and Visual Thought Process: Disoriented Thought Content: positive for Flight of Ideas, positive for Circumstantial and positive for Disorganized Diagnostics Vital Signs (24Hr): Vital Signs - 24 hr 04/27/25 14:38 04/27/25 20:00 04/28/25 08:00 Temperature 97.5 F 98.7 F 97.5 F Pulse Rate 99 108 H 99 Respiratory Rate 18 16 16 Blood Pressure 134/73 126/85 131/69 Pulse Oximetry 97 98 98 Oxygen Delivery Method Room Air Room Air Room Air BMI result Body Mass Index 28.1 Labs 04/26/25 03:48 04/28/25 07:47 Labs: Laboratory Results - last 48 hr 04/26/25 04/27/25 04/28/25 11:30 12:16 07:47 Sodium 139 138 Potassium 3.4 4.0 Chloride 105 107 Carbon Dioxide 27 25 Anion Gap 10 L 10 L BUN 22 H 15 Creatinine 0.69 0.64 Estim Creat Clear Calc 103.7 112.0 Estimated GFR > 60 > 60 Random Glucose 135 H 102 Estimat Average Glucose 103 Hemoglobin A1c % 5.2 Calcium 9.3 9.6 Total Bilirubin 0.2 0.2 AST 93 H 78 H ALT 54 H 57 H Alkaline Phosphatase 93 87 Total Protein 7.0 7.0 Albumin 4.2 4.2 Triglycerides 75 Cholesterol 100 LDL Cholesterol, Calc 50 HDL Cholesterol 35 L Urine Color Dark Yellow Urine Appearance Clear Urine pH 6.0 Ur Specific [place] >= 1.030 H Urine Protein 30 (1+) H Urine Glucose (UA) Negative Urine Ketones 15 Urine Blood Negative Urine Nitrite Negative Ur Leukocyte Esterase Trace H Urine RBC 0-2 Urine WBC 0-5 Ur Squamous Epith Cells 0-2 Calcium Oxalate Crystal Present Urine Bacteria None Seen Hyaline Casts 0-2 Urine Opiates Screen Not Detected Ur Buprenorphine Scrn Not Detected Ur Oxycodone Screen Not Detected Urine Methadone Screen Not Detected Urine Fentanyl Screen Not Detected Ur Barbiturates Screen Not Detected Ur Phencyclidine Scrn Not Detected Ur Amphetamines Screen Not Detected U Benzodiazepines Scrn POSITIVE H Urine Cocaine Screen Not Detected U Marijuana (THC) Screen POSITIVE H Medications Medications Current Medications Al Hydroxide/Mg Hydroxide (Magnesium Hydrox/Alum Hydrox 30 Ml Oral.Susp) 30 ml PO Q6H PRN PRN Reason: Heartburn/Nausea Albuterol Sulfate (Albuterol Sulfate 90 Mcg 8 Gm Inhaler) 2 puff INHALE Q4H PRN PRN Reason: Wheezing Amlodipine Besylate (Amlodipine Besylate 2.5 Mg Tablet) 2.5 mg PO DAILY [facility]; Protocol Last Admin: 04/28/25 08:24 Dose: 2.5 mg Aspirin (Aspirin Enteric Coated 81 Mg Tablet.) 81 mg PO DAILY [facility] Last Admin: 04/28/25 08:24 Dose: 81 mg Atorvastatin Calcium (Atorvastatin Calcium 40 Mg Tablet) 40 mg PO BEDTIME [facility] Last Admin: 04/27/25 20:25 Dose: 40 mg Benztropine Mesylate (Benztropine Mesylate 1 Mg Tablet) 1 mg PO BEDTIME [facility] Last Admin: 04/27/25 20:25 Dose: 1 mg Clonazepam (Clonazepam 0.5 Mg Tablet) 0.5 mg PO BID [facility] Last Admin: 04/28/25 08:25 Dose: 0.5 mg Ferrous Sulfate (Ferrous Sulfate 324 Mg Tablet.) 324 mg PO DAILY [facility] Last Admin: 04/28/25 08:25 Dose: 324 mg Folic Acid (Folic Acid 1 Mg Tablet) 1 mg PO DAILY [facility] Last Admin: 04/28/25 08:25 Dose: 1 mg Hydroxyzine HCl (Hydroxyzine Hcl 25 Mg Tablet) 25 mg PO Q6H PRN PRN Reason: mild anxiety Magnesium Hydroxide (Milk Of Magnesia 30 Ml Oral.Susp) 30 ml PO DAILY PRN PRN Reason: Constipation Mirtazapine (Mirtazapine 15 Mg Tablet) 45 mg PO BEDTIME [facility] Last Admin: 04/27/25 20:26 Dose: 45 mg Nicotine (Nicotine 21 Mg Patch.Td24) 21 mg TRANSDERMA DAILY [facility] Last Admin: 04/28/25 08:40 Dose: Not Given Nicotine Polacrilex (Nicotine Polacrilex 2 Mg Gum) 4 mg BUCCAL Q2H PRN PRN Reason: Nicotine Cravings Omeprazole (Omeprazole 20 Mg Capsule.Dr) 20 mg PO DAILY@0630 [facility] Last Admin: 04/28/25 08:39 Dose: 20 mg Risperidone (Risperidone 3 Mg Tablet) 3 mg PO TID [facility] Last Admin: 04/28/25 08:24 Dose: 3 mg Thiamine HCl (Thiamine Hcl 100 Mg Tablet) 100 mg PO DAILY [facility] Last Admin: 04/28/25 08:24 Dose: 100 mg Trazodone HCl (Trazodone Hcl 100 Mg Tablet) 100 mg PO BEDTIME [facility] Last Admin: 04/27/25 20:25 Dose: 100 mg Trazodone HCl (Trazodone Hcl 50 Mg Tablet) 50 mg PO BEDTIME MRX1 PRN PRN Reason: Insomnia Allergies Allergies Allergy/AdvReac Type Severity Reaction Status Date / Time acetaminophen Allergy Unknown PANADOL = Verified 04/26/25 02:41 ACETAMINOPHEN SHELLFISH Allergy Mild PATIENT Uncoded 04/26/25 02:41 REPORTS BURNING SENSATION THROUGHOUT OPIATES Allergy Unknown BECAME Uncoded 04/26/25 02:41 ADDICTED PANADOL Allergy Unknown UNKNOWN Uncoded 04/26/25 02:41 Assessment & Plan Assessment & Plan (1) Schizoaffective disorder: Qualifiers: Schizoaffective disorder type: unspecified Qualified Code(s): F25.9 - Schizoaffective disorder, unspecified Status: Acute Code(s): F25.9 - Schizoaffective disorder, unspecified (2) Intellectual delay: Status: Acute Code(s): F81.9 - Developmental disorder of scholastic skills, unspecified Plan Patient is a 60 year old male with hx of schizoaffective d/o and intellectual delay who was brought to [facility] [place] [place] via ambulance from home due to his family reporting patient has been aggressive and noncompliant with medication Plan: 12B 5 minute safety checks continue home mediations obtain collateral encourage groups discharge planning 04/28: Active on unit, social with Chadian speaking peers. medication compliant. wood boring machine operator present for assessment. disorganized. Answers questions inappropriately at times. flight of ideas. Stating his brother in law is a multiple times, however unable to explain how that was relevant to the conversation. Overheard making animal noises. Pt reports seeing blood on the cevallos and auditory hallucinations of airplane sounds . denies SI/HI. Per nursing, slept 7 hours last night. Transferred to Geriatric unit for continued care. Patient educated on: diagnosis and medication risk/benefits Reason for continued inpatient stay Substantial Risk for: med/psych decompensation Time Spent With Patient Time: Total time managing care of this patient today _20___ minutes.
[2025-04-28 20:00] VITALS: BP 133/84; PULSE 104; RESP 16; TEMP 36.7; O2SAT 97
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
[2025-04-29 09:18] VITALS: BP 113/74; PULSE 107; RESP 15; TEMP 36.7; O2SAT 96
[2025-04-29] MEDS: Aspirin Enteric Coated 81 MG TABLET.DR PO (09:20)
[2025-04-29] MEDS: Ferrous Sulfate 324 MG TABLET.DR PO (09:20)
[2025-04-29 11:16] VITALS: BMI 28.2
[2025-04-29 20:00] VITALS: BP 130/72; PULSE 89; RESP 18; TEMP 36.7; O2SAT 96
[2025-04-29] MEDS: Magnesium Hydrox/Alum Hydrox 30 ML ORAL.SUSP PO (21:29)
[2025-04-30 04:49] VITALS: BP 134/79; PULSE 100; RESP 16; TEMP 36.6; O2SAT 100
[2025-04-30 08:44] VITALS: BP 127/75; PULSE 95; RESP 16; TEMP 36.8; O2SAT 96
[2025-04-30] MEDS: Aspirin Enteric Coated 81 MG TABLET.DR PO (08:48)
[2025-04-30] MEDS: Ferrous Sulfate 324 MG TABLET.DR PO (08:48)
--- NOTE | 2025-04-30 09:22 | HO.PSYCHPN ---
Subjective Subjective Date of Service: 04/30/25 Reason For Visit: Crisis Subjective Notes: Section 12B Interim History: Pt slept through the night. He reports he is here in the hospital because he is visiting. He reports he sees blood on the wall, when asked to elaborate, he points at a picture of a wall that is a flower which he states looks like blood. He reports he is and has ajob and has to go and attend his , non of which is true. He insisted during the day that he needs to go and despite providing information that he is still is receiving information, he insists he has to go. No aggression, taking medications. Review of Systems Review of Systems Yes all other systems are reviewed and are negative Diagnostics Vital Signs (24Hr): Vital Signs - 24 hr 04/29/25 20:00 04/30/25 04:49 04/30/25 08:44 Temperature 98.1 F 97.8 F 98.2 F Pulse Rate 89 100 95 Respiratory Rate 18 16 16 Blood Pressure 130/72 134/79 127/75 Pulse Oximetry 96 100 96 Oxygen Delivery Method Room Air Room Air Room Air BMI result Body Mass Index 28.2 Labs 04/26/25 03:48 04/28/25 07:47 Medications Medications Current Medications Al Hydroxide/Mg Hydroxide (Magnesium Hydrox/Alum Hydrox 30 Ml Oral.Susp) 30 ml PO Q6H PRN PRN Reason: Heartburn/Nausea Last Admin: 04/29/25 21:29 Dose: 30 ml Albuterol Sulfate (Albuterol Sulfate 90 Mcg 8 Gm Inhaler) 2 puff INHALE Q4H PRN PRN Reason: Wheezing Amlodipine Besylate (Amlodipine Besylate 2.5 Mg Tablet) 2.5 mg PO DAILY [facility]; Protocol Last Admin: 04/30/25 08:48 Dose: 2.5 mg Artificial Tears (Artificial Tears 15 Ml Drops) 2 drop EYE-BOTH Q4H PRN PRN Reason: Dry Eyes Aspirin (Aspirin Enteric Coated 81 Mg Tablet.) 81 mg PO DAILY [facility] Last Admin: 04/30/25 08:48 Dose: 81 mg Atorvastatin Calcium (Atorvastatin Calcium 40 Mg Tablet) 40 mg PO BEDTIME [facility] Last Admin: 04/29/25 21:34 Dose: 40 mg Benztropine Mesylate (Benztropine Mesylate 1 Mg Tablet) 1 mg PO BEDTIME [facility] Last Admin: 04/29/25 21:30 Dose: 1 mg Clonazepam (Clonazepam 0.5 Mg Tablet) 0.5 mg PO BID [facility] Last Admin: 04/30/25 08:48 Dose: 0.5 mg Ferrous Sulfate (Ferrous Sulfate 324 Mg Tablet.) 324 mg PO DAILY [facility] Last Admin: 04/30/25 08:48 Dose: 324 mg Folic Acid (Folic Acid 1 Mg Tablet) 1 mg PO DAILY [facility] Last Admin: 04/30/25 08:47 Dose: 1 mg Hydroxyzine HCl (Hydroxyzine Hcl 25 Mg Tablet) 25 mg PO Q6H PRN PRN Reason: mild anxiety Last Admin: 04/30/25 03:49 Dose: 25 mg Magnesium Hydroxide (Milk Of Magnesia 30 Ml Oral.Susp) 30 ml PO DAILY PRN PRN Reason: Constipation Mirtazapine (Mirtazapine 15 Mg Tablet) 45 mg PO BEDTIME [facility] Last Admin: 04/29/25 21:33 Dose: 45 mg Nicotine (Nicotine 21 Mg Patch.Td24) 21 mg TRANSDERMA DAILY [facility] Last Admin: 04/29/25 09:19 Dose: Not Given Nicotine Polacrilex (Nicotine Polacrilex 2 Mg Gum) 4 mg BUCCAL Q2H PRN PRN Reason: Nicotine Cravings Omeprazole (Omeprazole 20 Mg Capsule.) 20 mg PO DAILY@0630 [facility] Last Admin: 04/30/25 06:19 Dose: 20 mg Risperidone (Risperidone 3 Mg Tablet) 3 mg PO TID [facility] Last Admin: 04/30/25 08:48 Dose: 3 mg Thiamine HCl (Thiamine Hcl 100 Mg Tablet) 100 mg PO DAILY [facility] Last Admin: 04/30/25 08:47 Dose: 100 mg Trazodone HCl (Trazodone Hcl 100 Mg Tablet) 100 mg PO BEDTIME [facility] Last Admin: 04/29/25 21:30 Dose: 100 mg Trazodone HCl (Trazodone Hcl 50 Mg Tablet) 50 mg PO BEDTIME MRX1 PRN PRN Reason: Insomnia Last Admin: 04/29/25 21:29 Dose: 50 mg Allergies Allergies Allergy/AdvReac Type Severity Reaction Status Date / Time acetaminophen Allergy Unknown PANADOL = Verified 04/26/25 02:41 ACETAMINOPHEN SHELLFISH Allergy Mild PATIENT Uncoded 04/26/25 02:41 REPORTS BURNING SENSATION THROUGHOUT OPIATES Allergy Unknown BECAME Uncoded 04/26/25 02:41 ADDICTED PANADOL Allergy Unknown UNKNOWN Uncoded 04/26/25 02:41 Assessment & Plan Assessment & Plan (1) Schizoaffective disorder: Qualifiers: Schizoaffective disorder type: unspecified Qualified Code(s): F25.9 - Schizoaffective disorder, unspecified Status: Acute Code(s): F25.9 - Schizoaffective disorder, unspecified (2) Intellectual delay: Status: Acute Code(s): F81.9 - Developmental disorder of scholastic skills, unspecified (3) Major neurocognitive disorder: Status: Acute Code(s): F03.90 - Unspecified dementia, unspecified severity, without behavioral disturbance, psychotic disturbance, mood disturbance, and anxiety Plan Patient is a 60 year old male with hx of schizoaffective d/o and intellectual delay who was brought to [facility] via ambulance from home due to his family reporting patient has been aggressive and noncompliant with medication Plan: 12B 5 minute safety checks continue home mediations obtain collateral encourage groups discharge planning 04/28: Active on unit, social with [place]ian speaking peers. medication compliant. ore digger present for assessment. disorganized. Answers questions inappropriately at times. flight of ideas. Stating his brother in law is a multiple times, however unable to explain how that was relevant to the conversation. Overheard making animal noises. Pt reports seeing blood on the cevallos and auditory hallucinations of airplane sounds . denies SI/HI. Per nursing, slept 7 hours last night. Transferred to Geriatric unit for continued care. 04/29 pt not oriented to situation, nor month nor year, which is baseline for him. He is overly friendly with poor boundaries at times. No aggression. taking medications as prescribed. filed for involuntary commitment. 04/30 continue current medications. he used to be on carbamazepine, unclear why it was discontinued. Reason for continued inpatient stay Substantial Risk for: inability to function Time Spent With Patient Time: Total time managing care of this patient today ____ minutes.
[2025-04-30] MEDS: Artificial Tears 15 ML DROPS 2 DROP EYE-BOTH ×2 (11:51→14:48)
[2025-04-30 20:00] VITALS: BP 150/80; PULSE 100; RESP 16; TEMP 36.8; O2SAT 98
[2025-05-01] MEDS: Aspirin Enteric Coated 81 MG TABLET.DR PO (07:52)
[2025-05-01 07:53] VITALS: BP 131/71
[2025-05-01] MEDS: Ferrous Sulfate 324 MG TABLET.DR PO (07:53)
[2025-05-01 07:55] VITALS: BP 131/71; PULSE 105; RESP 18; TEMP 36.4; O2SAT 96
[2025-05-01] MEDS: OLANZapine ODT 10 MG TAB.RAPDIS TRANSLINGU ×3 (08:30→20:51)
--- NOTE | 2025-05-01 08:45 | HO.PSYCHPN ---
Subjective Subjective Date of Service: 05/01/25 Reason For Visit: Crisis Subjective Notes: Conditional Voluntary Healthcare Proxy: Yes (mother/brother) Guardianship: No Medical Problems Affecting Mental Status: No Interim History: 60 yo with intellectual disability, and schizoaffective do who is agitated in am posturing at staff and taking off his clothes, trying to exit unit olanzapine prns don't seem to be affecting patient at all - he agreed to IM medication- Pt was seen by me as he was meeting with his burlapper and full time staff interpreter- He reports he is leaving today- and I corrected him- he took ims - voluntarily put his arm out- good effect patient slept for period of time and was less agitated until 9 pm - again he required IM combination - 5 haldol, 50mg benadryl and 5mg diazepam Medication Compliance: Yes Side effects from medications: No Attending Groups: Intermittent Review of Systems Acute medical concerns: No Medical Review of Systems: unchanged Mental Status Exam Mental Status Exam Patient Appearance: Unkempt Patient Orientation: Person Level of Consciousness: Awake and Alert Patient Behavior: Posturing, Belligerent and Resistive to Care Mood Description: Angry Affect Description: Labile Patient Cognition Impaired: Yes Ability to Follow Directions: Poor Speech Pattern: Slurred and Loud Thought Content: positive for [place] Depressive Symptoms: Muscle Tension and Increased Irritability Abnormal Motor Activity Signs and Symptoms: Agitation Judgement: Poor Diagnostics Vital Signs (24Hr): Vital Signs - 24 hr 04/30/25 20:00 05/01/25 07:53 05/01/25 07:55 Temperature 98.2 F 97.5 F Pulse Rate 100 105 H Respiratory Rate 16 18 Blood Pressure 150/80 H 131/71 131/71 Pulse Oximetry 98 96 Oxygen Delivery Method Room Air Room Air BMI result Body Mass Index 28.2 Labs 04/26/25 03:48 04/28/25 07:47 Medications Medications Current Medications Al Hydroxide/Mg Hydroxide (Magnesium Hydrox/Alum Hydrox 30 Ml Oral.Susp) 30 ml PO Q6H PRN PRN Reason: Heartburn/Nausea Last Admin: 04/29/25 21:29 Dose: 30 ml Albuterol Sulfate (Albuterol Sulfate 90 Mcg 8 Gm Inhaler) 2 puff INHALE Q4H PRN PRN Reason: Wheezing Amlodipine Besylate (Amlodipine Besylate 2.5 Mg Tablet) 2.5 mg PO DAILY [facility]; Protocol Last Admin: 05/01/25 07:53 Dose: 2.5 mg Artificial Tears (Artificial Tears 15 Ml Drops) 2 drop EYE-BOTH Q4H PRN PRN Reason: Dry Eyes Last Admin: 04/30/25 14:48 Dose: 2 drop Aspirin (Aspirin Enteric Coated 81 Mg Tablet.) 81 mg PO DAILY [facility] Last Admin: 05/01/25 07:52 Dose: 81 mg Atorvastatin Calcium (Atorvastatin Calcium 40 Mg Tablet) 40 mg PO BEDTIME [facility] Last Admin: 04/30/25 20:17 Dose: 40 mg Benztropine Mesylate (Benztropine Mesylate 1 Mg Tablet) 1 mg PO BEDTIME [facility] Last Admin: 04/30/25 20:17 Dose: 1 mg Clonazepam (Clonazepam 0.5 Mg Tablet) 0.5 mg PO BID [facility] Last Admin: 05/01/25 07:53 Dose: 0.5 mg Ferrous Sulfate (Ferrous Sulfate 324 Mg Tablet.) 324 mg PO DAILY [facility] Last Admin: 05/01/25 07:53 Dose: 324 mg Folic Acid (Folic Acid 1 Mg Tablet) 1 mg PO DAILY [facility] Last Admin: 05/01/25 07:53 Dose: 1 mg Hydroxyzine HCl (Hydroxyzine Hcl 25 Mg Tablet) 25 mg PO Q6H PRN PRN Reason: mild anxiety Last Admin: 04/30/25 20:51 Dose: 25 mg Magnesium Hydroxide (Milk Of Magnesia 30 Ml Oral.Susp) 30 ml PO DAILY PRN PRN Reason: Constipation Mirtazapine (Mirtazapine 15 Mg Tablet) 45 mg PO BEDTIME [facility] Last Admin: 04/30/25 20:17 Dose: 45 mg Nicotine (Nicotine 21 Mg Patch.Td24) 21 mg TRANSDERMA DAILY [facility] Last Admin: 05/01/25 07:55 Dose: Not Given Nicotine Polacrilex (Nicotine Polacrilex 2 Mg Gum) 4 mg BUCCAL Q2H PRN PRN Reason: Nicotine Cravings Olanzapine (Olanzapine Odt 10 Mg Tab.Rapdis) 10 mg TRANSLINGU BID PRN PRN Reason: Psychosis Omeprazole (Omeprazole 20 Mg Capsule.) 20 mg PO DAILY@0630 [facility] Last Admin: 05/01/25 05:35 Dose: 20 mg Risperidone (Risperidone 3 Mg Tablet) 3 mg PO TID [facility] Last Admin: 05/01/25 07:53 Dose: 3 mg Thiamine HCl (Thiamine Hcl 100 Mg Tablet) 100 mg PO DAILY [facility] Last Admin: 05/01/25 07:53 Dose: 100 mg Trazodone HCl (Trazodone Hcl 100 Mg Tablet) 100 mg PO BEDTIME [facility] Last Admin: 04/30/25 20:17 Dose: 100 mg Trazodone HCl (Trazodone Hcl 50 Mg Tablet) 50 mg PO BEDTIME MRX1 PRN PRN Reason: Insomnia Last Admin: 04/29/25 21:29 Dose: 50 mg Allergies Allergies Allergy/AdvReac Type Severity Reaction Status Date / Time acetaminophen Allergy Unknown PANADOL = Verified 04/26/25 02:41 ACETAMINOPHEN SHELLFISH Allergy Mild PATIENT Uncoded 04/26/25 02:41 REPORTS BURNING SENSATION THROUGHOUT OPIATES Allergy Unknown BECAME Uncoded 04/26/25 02:41 ADDICTED PANADOL Allergy Unknown UNKNOWN Uncoded 04/26/25 02:41 Assessment & Plan Assessment & Plan (1) Schizoaffective disorder: Qualifiers: Schizoaffective disorder type: unspecified Qualified Code(s): F25.9 - Schizoaffective disorder, unspecified Status: Acute Code(s): F25.9 - Schizoaffective disorder, unspecified (2) Intellectual delay: Status: Acute Code(s): F81.9 - Developmental disorder of scholastic skills, unspecified (3) Major neurocognitive disorder: Status: Acute Code(s): F03.90 - Unspecified dementia, unspecified severity, without behavioral disturbance, psychotic disturbance, mood disturbance, and anxiety Plan Patient is a 60 year old male with hx of schizoaffective d/o and intellectual delay who was brought to [facility] via ambulance from home due to his family reporting patient has been aggressive and noncompliant with medication Plan: 12B 5 minute safety checks continue home mediations obtain collateral encourage groups discharge planning 04/28: Active on unit, social with Samoan speaking peers. medication compliant. lang interpreter present for assessment. disorganized. Answers questions inappropriately at times. flight of ideas. Stating his brother in law is a multiple times, however unable to explain how that was relevant to the conversation. Overheard making animal noises. Pt reports seeing blood on the cevallos and auditory hallucinations of airplane sounds . denies SI/HI. Per nursing, slept 7 hours last night. Transferred to Geriatric unit for continued care. 04/29 pt not oriented to situation, nor month nor year, which is baseline for him. He is overly friendly with poor boundaries at times. No aggression. taking medications as prescribed. filed for involuntary commitment. 05/01 - pt agitated but seeking IM medications- got good response- will repeat Reason for continued inpatient stay Substantial Risk for: harm to others, inability to function and rapid decompensation Time Spent With Patient Time: Total time managing care of this patient today ____ minutes.
[2025-05-01] MEDS: diazePAM 10 MG/2 ML CARTRIDGE 5 MG IM (11:32)
--- NOTE | 2025-05-01 14:07 | PC.NURSE ---
Uche is alert. He has been agitated, restless, anxious, exit-seeking, and tearful throughout the shift. He has been disrobing and intrusive with staff and peers by touching them. Psychomotor agitation noted and Uche is frequently requesting to leave. He is eating meals and taking medications as ordered. Dr. Kapoor notified and ordered 1x dose Zydis 10mg without effect. Behaviors continued, Dr. Cardenas notified and he was administered Ativan 2mg 90 minutes later without effect. Uche then began posturing at staff and yelling at staff and banging on doors incessantly without much response to redirection. Dr. Alba notified. He was offered and agreed to take IM medications Valium, Haldol, and Benadryl at 1130am and subsequently went to sleep at 1pm.
[2025-05-01] MEDS: Artificial Tears 15 ML DROPS 2 DROP EYE-BOTH (18:03)
[2025-05-01 19:30] VITALS: BP 112/68; PULSE 110; RESP 18; TEMP 36.9; O2SAT 98
--- NOTE | 2025-05-01 21:30 | PM.EVENT ---
Event Note Date of Service: 05/01/25 Event Note: manic, intrusive and out of control; needing prn's throughout the day. Starting on Depakote ER 1000mg qhs for sam; pt has been on depakote before Time Spent With Patient Time: Total time managing care of this patient today ____ minutes.
[2025-05-01 22:00] VITALS: BP 140/79; PULSE 115; RESP 18; TEMP 36; O2SAT 99
--- NOTE | 2025-05-01 22:51 | PC.NURSE ---
Assumed care of the patient at 19:00. Patient restless, agitated, intrusive?and having outbursts. Vitals stable. Scheduled?medications administered and Atarax 25mg PO PRN administered, see MAR. Patient still restless, agitated, intrusive?and having outbursts. Zyprexa 10mg at 20:51 with no effect. Patient still restless, agitated, intrusive?and having an outburst. MD notified?haldol 5mg diazepam 10mg, depakote 1000mg and EKG ordered. EKG obtained and MD notified. Medications administered. Patient reported left sided chest pain at approximately 22:00. Vitals taken, see patients chart. MD notified?troponin?order and obtained.?
[2025-05-01 23:02] LABS: Troponin-I High Sensitivity 19.0 ng/L (<3.5-35.0)
[2025-05-02 08:00] VITALS: BP 125/80; PULSE 103; RESP 20; TEMP 36.8; O2SAT 100
[2025-05-02 08:14] VITALS: BP 125/80
[2025-05-02] MEDS: Aspirin Enteric Coated 81 MG TABLET.DR PO (08:15)
[2025-05-02] MEDS: Ferrous Sulfate 324 MG TABLET.DR PO (08:15)
--- NOTE | 2025-05-02 09:00 | ECG_ITS ---
Test Reason : qtc Blood Pressure : */* mmHG Vent. Rate : 108 BPM Atrial Rate : 108 BPM P-R Int : 142 ms QRS Dur : 76 ms QT Int : 362 ms P-R-T Axes : 70 62 60 degrees QTcB Int : 485 ms Sinus tachycardia Possible Lateral infarct , age undetermined Abnormal ECG When compared with ECG of 27-Apr-2025 10:04, No significant change was found Referred By: Jaiden Pollack Electronically Signed By: LUIS ANTONIO VAUGHN MD
--- NOTE | 2025-05-02 09:46 | HO.PSYCHPN ---
Subjective Subjective Date of Service: 05/02/25 Reason For Visit: Crisis Subjective Notes: Conditional Voluntary Healthcare Proxy: Yes Medical Problems Affecting Mental Status: Yes (intermittent co chest pain, ? cog decline further) Interim History: 60 yo with intellectual impairment reported chest pain last pm - ekg was ok as was tropinins- tolerated start of depakote loading dose last pm- working more effectively than atypicals/benzo combo was- though he continues to be exit seeking no longer disrobing or posturing toward staff- Medication Compliance: Yes Side effects from medications: No Attending Groups: No Review of Systems Acute medical concerns: No Medical Review of Systems: unchanged Mental Status Exam Mental Status Exam Patient Appearance: Disheveled Patient Orientation: Person Level of Consciousness: Awake and Restless Patient Behavior: Guarded, Restless, Swearing, Impulsive and Poor Eye Contact Behavior Comments: but also shakes my hand- and can do small brief interactions- Mood Description: Angry Affect Description: Labile Patient Cognition Impaired: Yes Ability to Follow Directions: Poor Speech Pattern: Poor Articulation Hallucinations: None Thought Process: Distracted and Confusion Thought Content: positive for [place] Judgement: Poor Diagnostics Vital Signs (24Hr): Vital Signs - 24 hr 05/01/25 19:30 05/01/25 22:00 05/02/25 08:00 Temperature 98.4 F 96.8 F 98.2 F Pulse Rate 110 H 115 H 103 H Respiratory Rate 18 18 20 Blood Pressure 112/68 140/79 H 125/80 Pulse Oximetry 98 99 100 Oxygen Delivery Method Room Air Room Air Room Air 05/02/25 08:14 Temperature Pulse Rate Respiratory Rate Blood Pressure 125/80 Pulse Oximetry Oxygen Delivery Method BMI result Body Mass Index 28.2 Labs 04/26/25 03:48 04/28/25 07:47 Labs: Laboratory Results - last 48 hr 05/01/25 22:34 Troponin I High Sens 19.0 D Medications Medications Current Medications Al Hydroxide/Mg Hydroxide (Magnesium Hydrox/Alum Hydrox 30 Ml Oral.Susp) 30 ml PO Q6H PRN PRN Reason: Heartburn/Nausea Last Admin: 04/29/25 21:29 Dose: 30 ml Albuterol Sulfate (Albuterol Sulfate 90 Mcg 8 Gm Inhaler) 2 puff INHALE Q4H PRN PRN Reason: Wheezing Amlodipine Besylate (Amlodipine Besylate 2.5 Mg Tablet) 2.5 mg PO DAILY [facility]AREN; Protocol Last Admin: 05/02/25 08:14 Dose: 2.5 mg Artificial Tears (Artificial Tears 15 Ml Drops) 2 drop EYE-BOTH Q4H PRN PRN Reason: Dry Eyes Last Admin: 05/01/25 18:03 Dose: 2 drop Aspirin (Aspirin Enteric Coated 81 Mg Tablet.) 81 mg PO DAILY [facility] Last Admin: 05/02/25 08:15 Dose: 81 mg Atorvastatin Calcium (Atorvastatin Calcium 40 Mg Tablet) 40 mg PO BEDTIME [facility] Last Admin: 05/01/25 19:33 Dose: 40 mg Benztropine Mesylate (Benztropine Mesylate 1 Mg Tablet) 1 mg PO BEDTIME [facility] Last Admin: 05/01/25 19:33 Dose: 1 mg Clonazepam (Clonazepam 0.5 Mg Tablet) 0.5 mg PO BID [facility] Last Admin: 05/02/25 08:14 Dose: 0.5 mg Divalproex Sodium (Divalproex Sodium Er 500 Mg Tab.Er.24h) 1,000 mg PO BEDTIME [facility] Ferrous Sulfate (Ferrous Sulfate 324 Mg Tablet.) 324 mg PO DAILY [facility] Last Admin: 05/02/25 08:15 Dose: 324 mg Folic Acid (Folic Acid 1 Mg Tablet) 1 mg PO DAILY [facility] Last Admin: 05/02/25 08:15 Dose: 1 mg Hydroxyzine HCl (Hydroxyzine Hcl 25 Mg Tablet) 25 mg PO Q6H PRN PRN Reason: mild anxiety Last Admin: 05/01/25 19:34 Dose: 25 mg Magnesium Hydroxide (Milk Of Magnesia 30 Ml Oral.Susp) 30 ml PO DAILY PRN PRN Reason: Constipation Mirtazapine (Mirtazapine 15 Mg Tablet) 45 mg PO BEDTIME [facility] Last Admin: 05/01/25 19:33 Dose: 45 mg Nicotine (Nicotine 21 Mg Patch.Td24) 21 mg TRANSDERMA DAILY [facility] Last Admin: 05/02/25 08:17 Dose: Not Given Nicotine Polacrilex (Nicotine Polacrilex 2 Mg Gum) 4 mg BUCCAL Q2H PRN PRN Reason: Nicotine Cravings Olanzapine (Olanzapine Odt 10 Mg Tab.Rapdis) 10 mg TRANSLINGU BID PRN PRN Reason: Psychosis Last Admin: 05/01/25 20:51 Dose: 10 mg Omeprazole (Omeprazole 20 Mg Capsule.) 20 mg PO DAILY@0630 [facility] Last Admin: 05/02/25 06:07 Dose: 20 mg Risperidone (Risperidone 3 Mg Tablet) 3 mg PO TID [facility] Last Admin: 05/02/25 08:15 Dose: 3 mg Thiamine HCl (Thiamine Hcl 100 Mg Tablet) 100 mg PO DAILY [facility] Last Admin: 05/02/25 08:14 Dose: 100 mg Trazodone HCl (Trazodone Hcl 100 Mg Tablet) 100 mg PO BEDTIME [facility] Last Admin: 05/01/25 19:33 Dose: 100 mg Trazodone HCl (Trazodone Hcl 50 Mg Tablet) 50 mg PO BEDTIME MRX1 PRN PRN Reason: Insomnia Last Admin: 04/29/25 21:29 Dose: 50 mg Allergies Allergies Allergy/AdvReac Type Severity Reaction Status Date / Time acetaminophen Allergy Unknown PANADOL = Verified 04/26/25 02:41 ACETAMINOPHEN SHELLFISH Allergy Mild PATIENT Uncoded 04/26/25 02:41 REPORTS BURNING SENSATION THROUGHOUT OPIATES Allergy Unknown BECAME Uncoded 04/26/25 02:41 ADDICTED PANADOL Allergy Unknown UNKNOWN Uncoded 04/26/25 02:41 Assessment & Plan Assessment & Plan (1) Schizoaffective disorder: Qualifiers: Schizoaffective disorder type: unspecified Qualified Code(s): F25.9 - Schizoaffective disorder, unspecified Status: Acute Code(s): F25.9 - Schizoaffective disorder, unspecified (2) Intellectual delay: Status: Acute Code(s): F81.9 - Developmental disorder of scholastic skills, unspecified (3) Major neurocognitive disorder: Status: Acute Code(s): F03.90 - Unspecified dementia, unspecified severity, without behavioral disturbance, psychotic disturbance, mood disturbance, and anxiety Plan Patient is a 60 year old male with hx of schizoaffective d/o and intellectual delay who was brought [place] [facility] [place] from home due to his family reporting patient has been aggressive and noncompliant with medication Plan: 12B 5 minute safety checks continue home mediations obtain collateral encourage groups discharge planning 04/28: Active on unit, social with Persian speaking peers. medication compliant. optician present for assessment. disorganized. Answers questions inappropriately at times. flight of ideas. Stating his brother in law is a multiple times, however unable to explain how that was relevant to the conversation. Overheard making animal noises. Pt reports seeing blood on the cevallos and auditory hallucinations of airplane sounds . denies SI/HI. Per nursing, slept 7 hours last night. Transferred to Geriatric unit for continued care. 04/29 pt not oriented to situation, nor month nor year, which is baseline for him. He is overly friendly with poor boundaries at times. No aggression. taking medications as prescribed. filed for involuntary commitment. 05/01 - pt agitated but seeking IM medications- got good response- will repeat 05/02 response to ims was actually limited nursing report to 45min and provider last night reviewed chart and found depakote helpful in past- and has started reloading- I added 250mg er am dose to help thru day today- and prn haldol prn valium low dose - Reason for continued inpatient stay Substantial Risk for: harm to others, inability to function and rapid decompensation Time Spent With Patient Time: Total time managing care of this patient today ____ minutes.
[2025-05-02] MEDS: Divalproex Sodium ER 250 MG TAB.ER.24H PO (09:55)
[2025-05-02] MEDS: OLANZapine ODT 10 MG TAB.RAPDIS TRANSLINGU (19:20)
[2025-05-02 20:00] VITALS: BP 130/82; PULSE 116; RESP 20; TEMP 36.2; O2SAT 99
--- NOTE | 2025-05-02 20:25 | HO.PSYEVENT ---
Event Note Date of Service: 05/02/25 Psych Restraint Event Note: Pt was agitated not letting anyone in or out of the unit- and pounding desk- threatening and posturing- was agreeable to IM medication had 1 hr prior had all hs medications Time Spent With Patient Time: Total time managing care of this patient today ____ minutes.
[2025-05-02] MEDS: diazePAM 10 MG/2 ML CARTRIDGE IM (20:55)
--- NOTE | 2025-05-02 21:16 | HO.BHRESTREX ---
Behavioral Restraint Exam Behavioral Health Restraint Exam Type of Restraint: Medication Reason for Restraint: Substantial Risk Medical Concerns for Restraint: No medical concerns, pt w/o acute inj / no noted resp/VS abnormalities Behavioral Assessment / Plan: No further behavioral concerns, continue current plan.
--- NOTE | 2025-05-02 23:21 | PC.NURSE ---
On 05/02/25 at 2054 patient was given Diazepam 10mg IM, Haldol 10mg IM and Benadryl 50mg IM, Patient has been irritable, agitated, banging on doors, blocking doors, yelling mommy , and I want to go home after receiving PO PRN medications and his regularly scheduled HS medications. patient was inconsolable, even after IM medications which he took willingly. He ws asked if he would take more medications to help him settle down and he agreed, to IM medications. He has done so in the past. Guardian Blair Wilson's coild not be called. His phone number not on any legal paperwork in chart.
--- NOTE | 2025-05-03 | ECG_ITS ---
Test Reason : CP STAT ORDER Blood Pressure : */* mmHG Vent. Rate : 103 BPM Atrial Rate : 103 BPM P-R Int : 138 ms QRS Dur : 80 ms QT Int : 372 ms P-R-T Axes : 55 43 48 degrees QTcB Int : 487 ms Sinus tachycardia Inferior infarct , age undetermined Abnormal ECG When compared with ECG of 01-May-2025 21:42, No significant change was found Referred By: Georgette Estrella Electronically Signed By: Bronson Butler
--- NOTE | 2025-05-03 08:50 | HO.PSYCHPN ---
Subjective Subjective Date of Service: 05/03/25 Reason For Visit: Crisis Subjective Notes: Conditional Voluntary Interim History: Pt slept through the night. He is taking medications as prescribed. he insists that he just came to the hospital to visit you, I'll buy you a present. He reports he is leaving, despite telling him he is not medically cleared to be discharged. He insists he is. He reports he will walk home. He is usually not oriented to month, year nor situation. No overt paranoid delusions as he had last week. He is not oriented to situation, although this has been true even when at baseline. Over the weekend, pt also insisted that he needed to leave and became more agitated, requiring IM medication as he was pounding on the door and not responding to redirection. Review of Systems Review of Systems Yes all other systems are reviewed and are negative Mental Status Exam Mental Status Exam Narrative: Appearance: wearing hospital gown,in NAD Behavior: friendly and cooperative Speech: clear, regular rate/rhythm/volume, spontaneous TP: goal oriented- wanting to go home TC: wanting to go Mood: I'm leaving! Affect: somewhat irritable, persistent about leaving, despite being told he is not discharging today SI: denies HI: denies VH/AH:no overt Delusions: some paranoid delusions, but also ideas that he is and works. Insight/judgment: limited x 2. Memory/cog: alert, oriented to place, not month nor year, nor situation. Diagnostics Vital Signs (24Hr): Vital Signs - 24 hr 05/02/25 20:00 Temperature 97.2 F Pulse Rate 116 H Respiratory Rate 20 Blood Pressure 130/82 Pulse Oximetry 99 Oxygen Delivery Method Room Air BMI result Body Mass Index 28.2 Labs 04/26/25 03:48 04/28/25 07:47 Labs: Laboratory Results - last 48 hr 05/01/25 22:34 Troponin I High Sens 19.0 D Medications Medications Current Medications Al Hydroxide/Mg Hydroxide (Magnesium Hydrox/Alum Hydrox 30 Ml Oral.Susp) 30 ml PO Q6H PRN PRN Reason: Heartburn/Nausea Last Admin: 04/29/25 21:29 Dose: 30 ml Albuterol Sulfate (Albuterol Sulfate 90 Mcg 8 Gm Inhaler) 2 puff INHALE Q4H PRN PRN Reason: Wheezing Amlodipine Besylate (Amlodipine Besylate 2.5 Mg Tablet) 2.5 mg PO DAILY [facility]; Protocol Last Admin: 05/02/25 08:14 Dose: 2.5 mg Artificial Tears (Artificial Tears 15 Ml Drops) 2 drop EYE-BOTH Q4H PRN PRN Reason: Dry Eyes Last Admin: 05/01/25 18:03 Dose: 2 drop Aspirin (Aspirin Enteric Coated 81 Mg Tablet.) 81 mg PO DAILY [facility] Last Admin: 05/02/25 08:15 Dose: 81 mg Atorvastatin Calcium (Atorvastatin Calcium 40 Mg Tablet) 40 mg PO BEDTIME [facility] Last Admin: 05/02/25 19:21 Dose: 40 mg Benztropine Mesylate (Benztropine Mesylate 1 Mg Tablet) 1 mg PO BEDTIME [facility] Last Admin: 05/02/25 19:21 Dose: 1 mg Clonazepam (Clonazepam 0.5 Mg Tablet) 0.5 mg PO BID [facility] Last Admin: 05/02/25 19:20 Dose: 0.5 mg Diazepam (Diazepam 2 Mg Tablet) 2 mg PO TID PRN PRN Reason: Restlessness Last Admin: 05/02/25 19:19 Dose: 2 mg Divalproex Sodium (Divalproex Sodium Er 500 Mg Tab.Er.24h) 1,000 mg PO BEDTIME [facility] Last Admin: 05/02/25 19:22 Dose: 1,000 mg Divalproex Sodium (Divalproex Sodium Er 250 Mg Tab.Er.24h) 250 mg PO DAILY [facility] Last Admin: 05/02/25 09:55 Dose: 250 mg Ferrous Sulfate (Ferrous Sulfate 324 Mg Tablet.) 324 mg PO DAILY [facility] Last Admin: 05/02/25 08:15 Dose: 324 mg Folic Acid (Folic Acid 1 Mg Tablet) 1 mg PO DAILY [facility] Last Admin: 05/02/25 08:15 Dose: 1 mg Haloperidol (Haloperidol 5 Mg Tablet) 5 mg PO TID PRN PRN Reason: sam Last Admin: 05/02/25 18:43 Dose: 5 mg Hydroxyzine HCl (Hydroxyzine Hcl 25 Mg Tablet) 25 mg PO Q6H PRN PRN Reason: mild anxiety Last Admin: 05/02/25 18:43 Dose: 25 mg Magnesium Hydroxide (Milk Of Magnesia 30 Ml Oral.Susp) 30 ml PO DAILY PRN PRN Reason: Constipation Mirtazapine (Mirtazapine 30 Mg Tablet) 30 mg PO BEDTIME [facility] Last Admin: 05/02/25 19:20 Dose: 30 mg Nicotine (Nicotine 21 Mg Patch.Td24) 21 mg TRANSDERMA DAILY [facility] Last Admin: 05/02/25 08:17 Dose: Not Given Nicotine Polacrilex (Nicotine Polacrilex 2 Mg Gum) 4 mg BUCCAL Q2H PRN PRN Reason: Nicotine Cravings Olanzapine (Olanzapine Odt 10 Mg Tab.Rapdis) 10 mg TRANSLINGU BID PRN PRN Reason: Psychosis Last Admin: 05/02/25 19:20 Dose: 10 mg Omeprazole (Omeprazole 20 Mg Capsule.Dr) 20 mg PO DAILY@0630 [facility] Last Admin: 05/03/25 06:00 Dose: 20 mg Risperidone (Risperidone 3 Mg Tablet) 3 mg PO TID [facility] Last Admin: 05/02/25 19:20 Dose: 3 mg Thiamine HCl (Thiamine Hcl 100 Mg Tablet) 100 mg PO DAILY [facility] Last Admin: 05/02/25 08:14 Dose: 100 mg Trazodone HCl (Trazodone Hcl 100 Mg Tablet) 100 mg PO BEDTIME [facility] Last Admin: 05/02/25 19:21 Dose: 100 mg Trazodone HCl (Trazodone Hcl 50 Mg Tablet) 50 mg PO BEDTIME MRX1 PRN PRN Reason: Insomnia Last Admin: 05/02/25 19:21 Dose: 50 mg Allergies Allergies Allergy/AdvReac Type Severity Reaction Status Date / Time acetaminophen Allergy Unknown PANADOL = Verified 04/26/25 02:41 ACETAMINOPHEN SHELLFISH Allergy Mild PATIENT Uncoded 04/26/25 02:41 REPORTS BURNING SENSATION THROUGHOUT OPIATES Allergy Unknown BECAME Uncoded 04/26/25 02:41 ADDICTED PANADOL Allergy Unknown UNKNOWN Uncoded 04/26/25 02:41 Assessment & Plan Assessment & Plan (1) Schizoaffective disorder: Qualifiers: Schizoaffective disorder type: unspecified Qualified Code(s): F25.9 - Schizoaffective disorder, unspecified Status: Acute Code(s): F25.9 - Schizoaffective disorder, unspecified (2) Intellectual delay: Status: Acute Code(s): F81.9 - Developmental disorder of scholastic skills, unspecified (3) Major neurocognitive disorder: Status: Acute Code(s): F03.90 - Unspecified dementia, unspecified severity, without behavioral disturbance, psychotic disturbance, mood disturbance, and anxiety Plan Patient is a 60 year old male with hx of schizoaffective d/o and intellectual delay who [place] [facility] [place] due to his family reporting patient has been aggressive and noncompliant with medication Plan: 12B 5 minute safety checks continue home mediations obtain collateral encourage groups discharge planning 04/28: Active on unit, social with Citizen [place] speaking peers. medication compliant. college or university registrar present for assessment. disorganized. Answers questions inappropriately at times. flight of ideas. Stating his brother in law is a multiple times, however unable to explain how that was relevant to the conversation. Overheard making animal noises. Pt reports seeing blood on the cevallos and auditory hallucinations of airplane sounds . denies SI/HI. Per nursing, slept 7 hours last night. Transferred to Geriatric unit for continued care. 04/29 pt not oriented to situation, nor month nor year, which is baseline for him. He is overly friendly with poor boundaries at times. No aggression. taking medications as prescribed. filed for involuntary commitment. 05/01 - pt agitated but seeking IM medications- got good response- will repeat 05/02 response to ims was actually limited nursing report to 45min and provider last night reviewed chart and found depakote helpful in past- and has started reloading- I added 250mg er am dose to help thru day today- and prn haldol prn valium low dose - 05/03 started on depakote over the weekend. insisting on leaving thinking he has to go to work. Reason for continued inpatient stay Substantial Risk for: inability to function Time Spent With Patient Time: Total time managing care of this patient today ____ minutes.
[2025-05-03 09:29] VITALS: BP 118/74; PULSE 103; RESP 16; TEMP 36.7; O2SAT 97
[2025-05-03] MEDS: Aspirin Enteric Coated 81 MG TABLET.DR PO (09:30)
[2025-05-03] MEDS: Ferrous Sulfate 324 MG TABLET.DR PO (09:31)
[2025-05-03] MEDS: Divalproex Sodium ER 250 MG TAB.ER.24H PO (11:11)
[2025-05-03] MEDS: OLANZapine ODT 10 MG TAB.RAPDIS TRANSLINGU (19:54)
[2025-05-03 19:56] VITALS: BP 132/71; PULSE 108; RESP 18; TEMP 36.8; O2SAT 98
[2025-05-04 07:55] VITALS: BP 120/73; PULSE 99; RESP 18; TEMP 36.8; O2SAT 97
[2025-05-04] MEDS: Ferrous Sulfate 324 MG TABLET.DR PO (08:21)
[2025-05-04] MEDS: Divalproex Sodium ER 250 MG TAB.ER.24H PO (08:21)
[2025-05-04] MEDS: Aspirin Enteric Coated 81 MG TABLET.DR PO (08:22)
--- NOTE | 2025-05-04 09:15 | HO.PSYCHPN ---
Subjective Subjective Date of Service: 05/04/25 Reason For Visit: Crisis Subjective Notes: Section 7 Interim History: Pt slept through the night. Pt very intrusive with peers and staff, continues to report that he is leaving and that the doctor discharged me. He reports he has to go home and has many things to do such as going to [facility] or his PCP. He presents with fregoli type delusions thinking estrangers are family members. He thinks peer is his and he has been very intrusive and needed redirection with this peer. Review of Systems Review of Systems Yes all other systems are reviewed and are negative Mental Status Exam Mental Status Exam Narrative: Appearance: wearing hospital gown,in NAD Behavior: friendly and cooperative Speech: clear, regular rate/rhythm/volume, spontaneous TP: goal oriented- wanting to go home TC: wanting to go Mood: I'm leaving! Affect: somewhat irritable, persistent about leaving, despite being told he is not discharging today SI: denies HI: denies VH/AH:no overt Delusions: some paranoid delusions, but also ideas that he is and works. fregoli delusions. Insight/judgment: limited x 2. Memory/cog: alert, oriented to place, not month nor year, nor situation. Diagnostics Vital Signs (24Hr): Vital Signs - 24 hr 05/03/25 09:29 05/03/25 19:56 05/04/25 07:55 Temperature 98.1 F 98.2 F 98.2 F Pulse Rate 103 H 108 H 99 Respiratory Rate 16 18 18 Blood Pressure 118/74 132/71 120/73 Pulse Oximetry 97 98 97 Oxygen Delivery Method Room Air Room Air Room Air BMI result Body Mass Index 28.2 Labs 04/26/25 03:48 04/28/25 07:47 Labs: Laboratory Results - last 48 hr 05/03/25 09:38 Valproic Acid 68.4 Medications Medications Current Medications Al Hydroxide/Mg Hydroxide (Magnesium Hydrox/Alum Hydrox 30 Ml Oral.Susp) 30 ml PO Q6H PRN PRN Reason: Heartburn/Nausea Last Admin: 04/29/25 21:29 Dose: 30 ml Albuterol Sulfate (Albuterol Sulfate 90 Mcg 8 Gm Inhaler) 2 puff INHALE Q4H PRN PRN Reason: Wheezing Amlodipine Besylate (Amlodipine Besylate 2.5 Mg Tablet) 2.5 mg PO DAILY [facility]; Protocol Last Admin: 05/04/25 08:21 Dose: 2.5 mg Artificial Tears (Artificial Tears 15 Ml Drops) 2 drop EYE-BOTH Q4H PRN PRN Reason: Dry Eyes Last Admin: 05/01/25 18:03 Dose: 2 drop Aspirin (Aspirin Enteric Coated 81 Mg Tablet.) 81 mg PO DAILY [facility] Last Admin: 05/04/25 08:22 Dose: 81 mg Atorvastatin Calcium (Atorvastatin Calcium 40 Mg Tablet) 40 mg PO BEDTIME [facility] Last Admin: 05/03/25 19:55 Dose: 40 mg Benztropine Mesylate (Benztropine Mesylate 1 Mg Tablet) 1 mg PO BEDTIME [facility] Last Admin: 05/03/25 19:55 Dose: 1 mg Clonazepam (Clonazepam 0.5 Mg Tablet) 0.5 mg PO BID [facility] Last Admin: 05/04/25 08:21 Dose: 0.5 mg Diazepam (Diazepam 2 Mg Tablet) 2 mg PO TID PRN PRN Reason: Restlessness Last Admin: 05/03/25 19:53 Dose: 2 mg Divalproex Sodium (Divalproex Sodium Er 500 Mg Tab.Er.24h) 1,000 mg PO BEDTIME [facility] Last Admin: 05/03/25 19:53 Dose: 1,000 mg Divalproex Sodium (Divalproex Sodium Er 250 Mg Tab.Er.24h) 250 mg PO DAILY [facility] Last Admin: 05/04/25 08:21 Dose: 250 mg Ferrous Sulfate (Ferrous Sulfate 324 Mg Tablet.) 324 mg PO DAILY [facility] Last Admin: 05/04/25 08:21 Dose: 324 mg Folic Acid (Folic Acid 1 Mg Tablet) 1 mg PO DAILY [facility] Last Admin: 05/04/25 08:22 Dose: 1 mg Haloperidol (Haloperidol 5 Mg Tablet) 5 mg PO TID PRN PRN Reason: sam Last Admin: 05/03/25 21:13 Dose: 5 mg Hydroxyzine HCl (Hydroxyzine Hcl 25 Mg Tablet) 25 mg PO Q6H PRN PRN Reason: mild anxiety Last Admin: 05/03/25 21:14 Dose: 25 mg Magnesium Hydroxide (Milk Of Magnesia 30 Ml Oral.Susp) 30 ml PO DAILY PRN PRN Reason: Constipation Nicotine (Nicotine 21 Mg Patch.Td24) 21 mg TRANSDERMA DAILY [facility] Last Admin: 05/04/25 08:22 Dose: Not Given Nicotine Polacrilex (Nicotine Polacrilex 2 Mg Gum) 4 mg BUCCAL Q2H PRN PRN Reason: Nicotine Cravings Olanzapine (Olanzapine Odt 10 Mg Tab.Rapdis) 10 mg TRANSLINGU BID PRN PRN Reason: Psychosis Last Admin: 05/03/25 19:54 Dose: 10 mg Omeprazole (Omeprazole 20 Mg Capsule.Dr) 20 mg PO DAILY@0630 [facility] Last Admin: 05/04/25 06:08 Dose: 20 mg Risperidone (Risperidone 3 Mg Tablet) 3 mg PO TID [facility] Last Admin: 05/04/25 08:21 Dose: 3 mg Thiamine HCl (Thiamine Hcl 100 Mg Tablet) 100 mg PO DAILY [facility] Last Admin: 05/04/25 08:22 Dose: 100 mg Trazodone HCl (Trazodone Hcl 50 Mg Tablet) 50 mg PO BEDTIME MRX1 PRN PRN Reason: Insomnia Last Admin: 05/03/25 21:14 Dose: 50 mg Trazodone HCl (Trazodone Hcl 50 Mg Tablet) 150 mg PO BEDTIME [facility] Last Admin: 05/03/25 19:56 Dose: 150 mg Allergies Allergies Allergy/AdvReac Type Severity Reaction Status Date / Time acetaminophen Allergy Unknown PANADOL = Verified 04/26/25 02:41 ACETAMINOPHEN SHELLFISH Allergy Mild PATIENT Uncoded 04/26/25 02:41 REPORTS BURNING SENSATION THROUGHOUT OPIATES Allergy Unknown BECAME Uncoded 04/26/25 02:41 ADDICTED PANADOL Allergy Unknown UNKNOWN Uncoded 04/26/25 02:41 Assessment & Plan Assessment & Plan (1) Schizoaffective disorder: Qualifiers: Schizoaffective disorder type: unspecified Qualified Code(s): F25.9 - Schizoaffective disorder, unspecified Status: Acute Code(s): F25.9 - Schizoaffective disorder, unspecified (2) Intellectual delay: Status: Acute Code(s): F81.9 - Developmental disorder of scholastic skills, unspecified (3) Major neurocognitive disorder: Status: Acute Code(s): F03.90 - Unspecified dementia, unspecified severity, without behavioral disturbance, psychotic disturbance, mood disturbance, and anxiety Plan Patient is a 60 year old male with hx of schizoaffective d/o and intellectual delay who was brought to [facility] via ambulance from home due to his family reporting patient has been aggressive and noncompliant with medication Plan: 12B 5 minute safety checks continue home mediations obtain collateral encourage groups discharge planning 04/28: Active on unit, social with Khmer speaking peers. medication compliant. 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 disorganized. Answers questions inappropriately at times. flight of ideas. Stating his brother in law is a multiple times, however unable to explain how that was relevant to the conversation. Overheard making animal noises. Pt reports seeing blood on the cevallos and auditory hallucinations of airplane sounds . denies SI/HI. Per nursing, slept 7 hours last night. Transferred to Geriatric unit for continued care. 04/29 pt not oriented to situation, nor month nor year, which is baseline for him. He is overly friendly with poor boundaries at times. No aggression. taking medications as prescribed. filed for involuntary commitment. 05/01 - pt agitated but seeking IM medications- got good response- will repeat 05/02 response to ims was actually limited nursing report to 45min and provider last night reviewed chart and found depakote helpful in past- and has started reloading- I added 250mg er am dose to help thru day today- and prn haldol prn valium low dose - 05/03 started on depakote over the weekend. insisting on leaving thinking he has to go to work. 05/04 will switch depakote ER to DR 750mg po BID. will schedule olanzapine 5mg po TID. may need to add second mood stabilizer. Reason for continued inpatient stay Substantial Risk for: inability to function Time Spent With Patient Time: Total time managing care of this patient today ____ minutes.
[2025-05-04] MEDS: OLANZapine ODT 10 MG TAB.RAPDIS 5 MG TRANSLINGU ×2 (16:52→20:26)
[2025-05-04 18:22] VITALS: BP 111/59; PULSE 112; RESP 18; O2SAT 97
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
[2025-05-04 20:00] VITALS: BP 110/76; PULSE 100; RESP 18; TEMP 36.4; O2SAT 98
[2025-05-05 08:00] VITALS: BP 159/83; PULSE 103; RESP 16; TEMP 36.3; O2SAT 96
[2025-05-05] MEDS: Ferrous Sulfate 324 MG TABLET.DR PO (08:28)
[2025-05-05] MEDS: Aspirin Enteric Coated 81 MG TABLET.DR PO (08:28)
[2025-05-05] MEDS: OLANZapine ODT 10 MG TAB.RAPDIS 5 MG TRANSLINGU ×3 (08:29→20:11)
--- NOTE | 2025-05-05 20:38 | P.PNPSI_ITS ---
Subjective Subjective Date of Service: 05/05/25 Reason For Visit: Crisis Subjective Notes: Conditional Voluntary Interim History: Pt slept through the night. No change. Pt very intrusive with peers and staff, continues to report that he is leaving and that the doctor discharged me. He reports he has to go home and has many things to do such as going to [facility] or his PCP. He presents with fregoli type delusions thinking strangers are family members. He thinks peer is his and he has been very intrusive and needed redirection with this peer. He is taking medications as prescribed. Review of Systems Review of Systems Yes all other systems are reviewed and are negative Mental Status Exam Mental Status Exam Narrative: Appearance: wearing hospital gown,in NAD Behavior: friendly and cooperative Speech: clear, regular rate/rhythm/volume, spontaneous TP: goal oriented- wanting to go home TC: wanting to go Mood: I'm leaving! Affect: somewhat irritable, persistent about leaving, despite being told he is not discharging today SI: denies HI: denies VH/AH:no overt Delusions: some paranoid delusions, but also ideas that he is and works. fregoli delusions. Insight/judgment: limited x 2. Memory/cog: alert, oriented to place, not month nor year, nor situation. Patient Appearance: Disheveled Patient Orientation: Person Level of Consciousness: Awake and Restless Patient Behavior: Guarded, Restless, Swearing, Impulsive and Poor Eye Contact Behavior Comments: but also shakes my hand- and can do small brief interactions- Mood Description: Angry Affect Description: Labile Patient Cognition Impaired: Yes Ability to Follow Directions: Poor Speech Pattern: Poor Articulation Diagnostics Vital Signs (24Hr): Vital Signs - 24 hr 05/05/25 08:00 Temperature 97.3 F Pulse Rate 103 H Respiratory Rate 16 Blood Pressure 159/83 H Pulse Oximetry 96 Oxygen Delivery Method Room Air BMI result Body Mass Index 28.2 Labs 04/26/25 03:48 04/28/25 07:47 Medications Medications Current Medications Al Hydroxide/Mg Hydroxide (Magnesium Hydrox/Alum Hydrox 30 Ml Oral.Susp) 30 ml PO Q6H PRN PRN Reason: Heartburn/Nausea Last Admin: 04/29/25 21:29 Dose: 30 ml Albuterol Sulfate (Albuterol Sulfate 90 Mcg 8 Gm Inhaler) 2 puff INHALE Q4H PRN PRN Reason: Wheezing Amlodipine Besylate (Amlodipine Besylate 2.5 Mg Tablet) 2.5 mg PO DAILY [facility]; Protocol Last Admin: 05/05/25 08:28 Dose: 2.5 mg Artificial Tears (Artificial Tears 15 Ml Drops) 2 drop EYE-BOTH Q4H PRN PRN Reason: Dry Eyes Last Admin: 05/01/25 18:03 Dose: 2 drop Aspirin (Aspirin Enteric Coated 81 Mg Tablet.) 81 mg PO DAILY [facility] [place] Last Admin: 05/05/25 08:28 Dose: 81 mg Atorvastatin Calcium (Atorvastatin Calcium 40 Mg Tablet) 40 mg PO BEDTIME [facility] [place] Last Admin: 05/05/25 20:10 Dose: 40 mg Benztropine Mesylate (Benztropine Mesylate 1 Mg Tablet) 1 mg PO BEDTIME [facility] [place] Last Admin: 05/05/25 20:11 Dose: 1 mg Clonazepam (Clonazepam 0.5 Mg Tablet) 0.5 mg PO BID [facility] [place] Last Admin: 05/05/25 20:10 Dose: 0.5 mg Diazepam (Diazepam 2 Mg Tablet) 2 mg PO TID PRN PRN Reason: Restlessness Last Admin: 05/05/25 20:11 Dose: 2 mg Divalproex Sodium (Divalproex Sodium 250 Mg Tablet.) 750 mg PO BID [facility] [place] Last Admin: 05/05/25 20:09 Dose: 750 mg Ferrous Sulfate (Ferrous Sulfate 324 Mg Tablet.) 324 mg PO DAILY [facility] [place] Last Admin: 05/05/25 08:28 Dose: 324 mg Folic Acid (Folic Acid 1 Mg Tablet) 1 mg PO DAILY [facility] [place] Last Admin: 05/05/25 08:28 Dose: 1 mg Haloperidol (Haloperidol 5 Mg Tablet) 10 mg PO TID PRN PRN Reason: agitation Last Admin: 05/05/25 20:12 Dose: 10 mg Magnesium Hydroxide (Milk Of Magnesia 30 Ml Oral.Susp) 30 ml PO DAILY PRN PRN Reason: Constipation Nicotine (Nicotine 21 Mg Patch.Td24) 21 mg TRANSDERMA DAILY [facility] [place] Last Admin: 05/05/25 08:38 Dose: Not Given Nicotine Polacrilex (Nicotine Polacrilex 2 Mg Gum) 4 mg BUCCAL Q2H PRN PRN Reason: Nicotine Cravings Olanzapine (Olanzapine Odt 10 Mg Tab.Rapdis) 5 mg TRANSLINGU TID [facility] [place] Last Admin: 05/05/25 20:11 Dose: 5 mg Omeprazole (Omeprazole 20 Mg Capsule.Dr) 20 mg PO DAILY@0630 [facility] [place] Last Admin: 05/05/25 08:35 Dose: 20 mg Risperidone (Risperidone 3 Mg Tablet) 3 mg PO TID [facility] [place] Last Admin: 05/05/25 20:10 Dose: 3 mg Thiamine HCl (Thiamine Hcl 100 Mg Tablet) 100 mg PO DAILY [facility] [place] Last Admin: 05/05/25 08:29 Dose: 100 mg Trazodone HCl (Trazodone Hcl 50 Mg Tablet) 50 mg PO BEDTIME MRX1 PRN PRN Reason: Insomnia Last Admin: 05/05/25 20:11 Dose: 50 mg Trazodone HCl (Trazodone Hcl 50 Mg Tablet) 150 mg PO BEDTIME [facility] [place] Last Admin: 05/05/25 20:10 Dose: 150 mg Allergies Allergies Allergy/AdvReac Type Severity Reaction Status Date / Time acetaminophen Allergy Unknown PANADOL = Verified 04/26/25 02:41 ACETAMINOPHEN SHELLFISH Allergy Mild PATIENT Uncoded 04/26/25 02:41 REPORTS BURNING SENSATION THROUGHOUT OPIATES Allergy Unknown BECAME Uncoded 04/26/25 02:41 ADDICTED PANADOL Allergy Unknown UNKNOWN Uncoded 04/26/25 02:41 Assessment & Plan Assessment & Plan (1) Schizoaffective disorder: Qualifiers: Schizoaffective disorder type: unspecified Qualified Code(s): F25.9 - Schizoaffective disorder, unspecified Status: Acute Code(s): F25.9 - Schizoaffective disorder, unspecified (2) Intellectual delay: Status: Acute Code(s): F81.9 - Developmental disorder of scholastic skills, unspecified (3) Major neurocognitive disorder: Status: Acute Code(s): F03.90 - Unspecified dementia, unspecified severity, without behavioral disturbance, psychotic disturbance, mood disturbance, and anxiety Plan Patient is a 60 year old male with hx of schizoaffective d/o and intellectual delay who was brought [place] [facility] [place] [place] ambulance from home due to his family reporting patient has been aggressive and noncompliant with medication Plan: 12B 5 minute safety checks continue home mediations obtain collateral encourage groups discharge planning 04/28: Active on unit, social with Chinese speaking peers. medication compliant. american sign language interpreter present for assessment. disorganized. Answers questions inappropriately at times. flight of ideas. Stating his brother in law is a multiple times, however unable to explain how that was relevant to the conversation. Overheard making animal noises. Pt reports seeing blood on the cevallos and auditory hallucinations of airplane sounds . denies SI/HI. Per nursing, slept 7 hours last night. Transferred to Geriatric unit for continued care. 04/29 pt not oriented to situation, nor month nor year, which is baseline for him. He is overly friendly with poor boundaries at times. No aggression. taking medications as prescribed. filed for involuntary commitment. 05/01 - pt agitated but seeking IM medications- got good response- will repeat 05/02 response to ims was actually limited nursing report to 45min and provider last night reviewed chart and found depakote helpful in past- and has started reloading- I added 250mg er am dose to help thru day today- and prn haldol prn valium low dose - 05/03 started on depakote over the weekend. insisting on leaving thinking he has to go to work. 05/04 will switch depakote ER to DR 750mg po BID. will schedule olanzapine 5mg po TID. may need to add second mood stabilizer. 05/05 continue tx. Reason for continued inpatient stay Substantial Risk for: inability to function Time Spent With Patient Time: Total time managing care of this patient today ____ minutes.
[2025-05-06 08:00] VITALS: BP 133/76; PULSE 96; RESP 16; O2SAT 96
[2025-05-06] MEDS: Aspirin Enteric Coated 81 MG TABLET.DR PO (08:52)
[2025-05-06] MEDS: OLANZapine ODT 10 MG TAB.RAPDIS 5 MG TRANSLINGU ×3 (08:52→20:11)
[2025-05-06] MEDS: Ferrous Sulfate 324 MG TABLET.DR PO (08:53)
[2025-05-06 13:45] VITALS: BMI 28.1
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
[2025-05-06 20:10] VITALS: BP 120/71; PULSE 110; RESP 18; TEMP 36.6; O2SAT 96
--- NOTE | 2025-05-06 21:39 | P.PNPSI_ITS ---
Subjective Subjective Date of Service: 05/06/25 Reason For Visit: Crisis Subjective Notes: Section 7 Interim History: Pt slept most of the night. Pt continues to present as intrusive with peers, at times difficult to redirect. He believes he knows peers and staff members and are related to him. He insists on leaving and that he was told he is being discharged despite this aligner typewriter enphasing that he is not being discharged yet and continues to need treatment. Medication Compliance: Yes Mental Status Exam Mental Status Exam Narrative: Appearance: wearing hospital gown,in NAD Behavior: friendly and cooperative Speech: clear, regular rate/rhythm/volume, spontaneous TP: goal oriented- wanting to go home TC: wanting to go Mood: I'm leaving! Affect: somewhat irritable, persistent about leaving, despite being told he is not discharging today SI: denies HI: denies VH/AH:no overt Delusions: some paranoid delusions, but also ideas that he is and works. fregoli delusions. Insight/judgment: limited x 2. Memory/cog: alert, oriented to place, not month nor year, nor situation. Diagnostics Vital Signs (24Hr): Vital Signs - 24 hr 05/06/25 08:00 05/06/25 20:10 Temperature 97.9 F Pulse Rate 96 110 H Respiratory Rate 16 18 Blood Pressure 133/76 120/71 Pulse Oximetry 96 96 Oxygen Delivery Method Room Air Room Air BMI result Body Mass Index 28.1 Labs 04/26/25 03:48 04/28/25 07:47 Medications Medications Current Medications Al Hydroxide/Mg Hydroxide (Magnesium Hydrox/Alum Hydrox 30 Ml Oral.Susp) 30 ml PO Q6H PRN PRN Reason: Heartburn/Nausea Last Admin: 04/29/25 21:29 Dose: 30 ml Albuterol Sulfate (Albuterol Sulfate 90 Mcg 8 Gm Inhaler) 2 puff INHALE Q4H PRN PRN Reason: Wheezing Amlodipine Besylate (Amlodipine Besylate 2.5 Mg Tablet) 2.5 mg PO DAILY [facility]; Protocol Last Admin: 05/06/25 08:53 Dose: 2.5 mg Artificial Tears (Artificial Tears 15 Ml Drops) 2 drop EYE-BOTH Q4H PRN PRN Reason: Dry Eyes Last Admin: 05/01/25 18:03 Dose: 2 drop Aspirin (Aspirin Enteric Coated 81 Mg Tablet.) 81 mg PO DAILY [facility] Last Admin: 05/06/25 08:52 Dose: 81 mg Atorvastatin Calcium (Atorvastatin Calcium 40 Mg Tablet) 40 mg PO BEDTIME [facility] Last Admin: 05/06/25 20:12 Dose: 40 mg Benztropine Mesylate (Benztropine Mesylate 1 Mg Tablet) 1 mg PO BEDTIME [facility] Last Admin: 05/06/25 20:12 Dose: 1 mg Clonazepam (Clonazepam 0.5 Mg Tablet) 0.5 mg PO BID [facility] Last Admin: 05/06/25 20:12 Dose: 0.5 mg Diazepam (Diazepam 2 Mg Tablet) 2 mg PO TID PRN PRN Reason: Restlessness Last Admin: 05/06/25 17:50 Dose: 2 mg Divalproex Sodium (Divalproex Sodium 250 Mg Tablet.) 750 mg PO BID [facility] Last Admin: 05/06/25 20:13 Dose: 750 mg Ferrous Sulfate (Ferrous Sulfate 324 Mg Tablet.) 324 mg PO DAILY [facility] Last Admin: 05/06/25 08:53 Dose: 324 mg Folic Acid (Folic Acid 1 Mg Tablet) 1 mg PO DAILY [facility] Last Admin: 05/06/25 08:53 Dose: 1 mg Haloperidol (Haloperidol 5 Mg Tablet) 10 mg PO TID PRN PRN Reason: agitation Last Admin: 05/06/25 17:50 Dose: 10 mg Magnesium Hydroxide (Milk Of Magnesia 30 Ml Oral.Susp) 30 ml PO DAILY PRN PRN Reason: Constipation Nicotine (Nicotine 21 Mg Patch.Td24) 21 mg TRANSDERMA DAILY [facility] Last Admin: 05/06/25 09:05 Dose: Not Given Nicotine Polacrilex (Nicotine Polacrilex 2 Mg Gum) 4 mg BUCCAL Q2H PRN PRN Reason: Nicotine Cravings Olanzapine (Olanzapine Odt 10 Mg Tab.Rapdis) 5 mg TRANSLINGU TID [facility] Last Admin: 05/06/25 20:11 Dose: 5 mg Omeprazole (Omeprazole 20 Mg Capsule.) 20 mg PO DAILY@0630 [facility] Last Admin: 05/05/25 08:35 Dose: 20 mg Risperidone (Risperidone 3 Mg Tablet) 3 mg PO TID [facility] Last Admin: 05/06/25 20:11 Dose: 3 mg Thiamine HCl (Thiamine Hcl 100 Mg Tablet) 100 mg PO DAILY [facility] Last Admin: 05/06/25 08:52 Dose: 100 mg Trazodone HCl (Trazodone Hcl 50 Mg Tablet) 50 mg PO BEDTIME MRX1 PRN PRN Reason: Insomnia Last Admin: 05/05/25 20:11 Dose: 50 mg Trazodone HCl (Trazodone Hcl 50 Mg Tablet) 150 mg PO BEDTIME [facility] Last Admin: 05/06/25 20:12 Dose: 150 mg Allergies Allergies Allergy/AdvReac Type Severity Reaction Status Date / Time acetaminophen Allergy Unknown PANADOL = Verified 04/26/25 02:41 ACETAMINOPHEN SHELLFISH Allergy Mild PATIENT Uncoded 04/26/25 02:41 REPORTS BURNING SENSATION THROUGHOUT OPIATES Allergy Unknown BECAME Uncoded 04/26/25 02:41 ADDICTED PANADOL Allergy Unknown UNKNOWN Uncoded 04/26/25 02:41 Assessment & Plan Assessment & Plan (1) Schizoaffective disorder: Qualifiers: Schizoaffective disorder type: unspecified Qualified Code(s): F25.9 - Schizoaffective disorder, unspecified Status: Acute Code(s): F25.9 - Schizoaffective disorder, unspecified (2) Intellectual delay: Status: Acute Code(s): F81.9 - Developmental disorder of scholastic skills, unspecified (3) Major neurocognitive disorder: Status: Acute Code(s): F03.90 - Unspecified dementia, unspecified severity, without behavioral disturbance, psychotic disturbance, mood disturbance, and anxiety Plan Patient is a 60 year old male with hx of schizoaffective d/o and intellectual delay who was brought [place] [facility] from home due to his family reporting patient has been aggressive and noncompliant with medication Plan: 12B 5 minute safety checks continue home mediations obtain collateral encourage groups discharge planning 04/28: Active on unit, social with Luxembourger speaking peers. medication compliant. gun fitter present for assessment. disorganized. Answers questions inappropriately at times. flight of ideas. Stating his brother in law is a multiple times, however unable to explain how that was relevant to the conversation. Overheard making animal noises. Pt reports seeing blood on the cevallos and auditory hallucinations of airplane sounds . denies SI/HI. Per nursing, slept 7 hours last night. Transferred to Geriatric unit for continued care. 04/29 pt not oriented to situation, nor month nor year, which is baseline for him. He is overly friendly with poor boundaries at times. No aggression. taking medications as prescribed. filed for involuntary commitment. 05/01 - pt agitated but seeking IM medications- got good response- will repeat 05/02 response to ims was actually limited nursing report to 45min and provider last night reviewed chart and found depakote helpful in past- and has started reloading- I added 250mg er am dose to help thru day today- and prn haldol prn valium low dose - 05/03 started on depakote over the weekend. insisting on leaving thinking he has to go to work. 05/04 will switch depakote ER to DR 750mg po BID. will schedule olanzapine 5mg po TID. may need to add second mood stabilizer. 05/05 continue tx. 05/06 increase olanzapine to 10mg po TID, will continue risperidone for now as well. Reason for continued inpatient stay Substantial Risk for: harm to others and inability to function Time Spent With Patient Time: Total time managing care of this patient today ____ minutes.
[2025-05-07 07:55] VITALS: BP 138/60; PULSE 100; RESP 18; TEMP 36.6; O2SAT 98
[2025-05-07] MEDS: Aspirin Enteric Coated 81 MG TABLET.DR PO (07:55)
[2025-05-07] MEDS: OLANZapine ODT 10 MG TAB.RAPDIS TRANSLINGU ×3 (07:55→22:07)
[2025-05-07] MEDS: Ferrous Sulfate 324 MG TABLET.DR PO (07:56)
[2025-05-07 07:59] LABS: Ammonia 46 umol/L (13-55)
[2025-05-07 08:08] LABS: Alanine Aminotransferase 33 U/L (0-40); Albumin Level 4.2 g/dL (3.5-5.0); Alkaline Phosphatase 101 U/L (39-117); Anion Gap 12 (12-20); Aspartate Amino Transferase 46 U/L (5-37); Blood Urea Nitrogen 17 mg/dL (9-16); Calcium 9.2 mg/dL (8.4-10.2); Carbon Dioxide 26 mmol/L (22-29); Chloride 103 mmol/L (96-108); Creatinine Clr Calc Pharmacy 94.2; Estimated Glomerular Filt Rate > 60; Potassium 4.0 mmol/L (3.3-5.1); Sodium 137 mmol/L (135-145); Total Protein 7.3 g/dL (6.5-8.0)
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
[2025-05-07 20:00] VITALS: BP 121/72; PULSE 100; RESP 18; TEMP 36.9; O2SAT 97
[2025-05-08] MEDS: Artificial Tears 15 ML DROPS 2 DROP EYE-BOTH (00:45)
[2025-05-08 08:00] VITALS: BP 130/70; PULSE 101; RESP 18; TEMP 36.2; O2SAT 97
[2025-05-08] MEDS: OLANZapine ODT 10 MG TAB.RAPDIS TRANSLINGU ×3 (08:34→20:01)
[2025-05-08] MEDS: Ferrous Sulfate 324 MG TABLET.DR PO (08:34)
[2025-05-08] MEDS: Aspirin Enteric Coated 81 MG TABLET.DR PO (08:35)
--- NOTE | 2025-05-08 12:22 | P.PNPSI_ITS ---
Subjective Subjective Date of Service: 05/08/25 Reason For Visit: Crisis Subjective Notes: Conditional Voluntary Interim History: Patient was seen and discussed in rounds today. Records and plans were reviewed. He has been a little more intrusive, tried to kiss another patient. Medication compliant. Using PRNs, sometimes effectively. We are going to observe him this morning and consider placing him on one-to-one if the p.r.n. does not help. No dangerous behaviors as of yet. Review of Systems Review of Systems Yes all other systems are reviewed and are negative Mental Status Exam Mental Status Exam Narrative: In today's visit he is alert, pleasant and interactive. Normal speech. Good eye contact. He is pleasant and engageable. No acute signs of psychosis. Paranoid ideations and possible delusions reported. No SI. Cognitively impaired and disorganized. Judgment is impaired Diagnostics Vital Signs (24Hr): Vital Signs - 24 hr 05/07/25 20:00 05/08/25 08:00 Temperature 98.4 F 97.1 F Pulse Rate 100 101 H Respiratory Rate 18 18 Blood Pressure 121/72 130/70 Pulse Oximetry 97 97 Oxygen Delivery Method Room Air Room Air BMI result Body Mass Index 28.1 Labs 04/26/25 03:48 05/07/25 07:46 Labs: Laboratory Results - last 48 hr 05/07/25 07:46 Sodium 137 Potassium 4.0 Chloride 103 Carbon Dioxide 26 Anion Gap 12 BUN 17 H Creatinine 0.76 Estim Creat Clear Calc 94.2 Estimated GFR > 60 Random Glucose 149 H Calcium 9.2 Total Bilirubin 0.4 AST 46 H ALT 33 Alkaline Phosphatase 101 Ammonia 46 Total Protein 7.3 Albumin 4.2 Valproic Acid 78.3 Medications Medications Current Medications Al Hydroxide/Mg Hydroxide (Magnesium Hydrox/Alum Hydrox 30 Ml Oral.Susp) 30 ml PO Q6H PRN PRN Reason: Heartburn/Nausea Last Admin: 04/29/25 21:29 Dose: 30 ml Albuterol Sulfate (Albuterol Sulfate 90 Mcg 8 Gm Inhaler) 2 puff INHALE Q4H PRN PRN Reason: Wheezing Amlodipine Besylate (Amlodipine Besylate 2.5 Mg Tablet) 2.5 mg PO DAILY [facility]; Protocol Last Admin: 05/08/25 08:34 Dose: 2.5 mg Artificial Tears (Artificial Tears 15 Ml Drops) 2 drop EYE-BOTH Q4H PRN PRN Reason: Dry Eyes Last Admin: 05/08/25 00:45 Dose: 2 drop Aspirin (Aspirin Enteric Coated 81 Mg Tablet.) 81 mg PO DAILY [facility] Last Admin: 05/08/25 08:35 Dose: 81 mg Atorvastatin Calcium (Atorvastatin Calcium 40 Mg Tablet) 40 mg PO BEDTIME [facility] Last Admin: 05/07/25 22:08 Dose: 40 mg Benztropine Mesylate (Benztropine Mesylate 1 Mg Tablet) 1 mg PO BEDTIME [facility] Last Admin: 05/07/25 20:44 Dose: 1 mg Diazepam (Diazepam 2 Mg Tablet) 2 mg PO TID PRN PRN Reason: Restlessness Last Admin: 05/07/25 23:41 Dose: 2 mg Diazepam (Diazepam 2 Mg Tablet) 2 mg PO TID [facility] Last Admin: 05/08/25 08:34 Dose: 2 mg Divalproex Sodium (Divalproex Sodium 250 Mg Tablet.) 750 mg PO BID [facility] Last Admin: 05/08/25 08:33 Dose: 750 mg Ferrous Sulfate (Ferrous Sulfate 324 Mg Tablet.) 324 mg PO DAILY [facility] Last Admin: 05/08/25 08:34 Dose: 324 mg Folic Acid (Folic Acid 1 Mg Tablet) 1 mg PO DAILY [facility] Last Admin: 05/08/25 08:34 Dose: 1 mg Haloperidol (Haloperidol 5 Mg Tablet) 10 mg PO TID PRN PRN Reason: agitation Last Admin: 05/08/25 10:29 Dose: 10 mg Magnesium Hydroxide (Milk Of Magnesia 30 Ml Oral.Susp) 30 ml PO DAILY PRN PRN Reason: Constipation Nicotine (Nicotine 21 Mg Patch.Td24) 21 mg TRANSDERMA DAILY [facility] Last Admin: 05/08/25 08:33 Dose: Not Given Nicotine Polacrilex (Nicotine Polacrilex 2 Mg Gum) 4 mg BUCCAL Q2H PRN PRN Reason: Nicotine Cravings Olanzapine (Olanzapine Odt 10 Mg Tab.Rapdis) 10 mg TRANSLINGU TID [facility] Last Admin: 05/08/25 08:34 Dose: 10 mg Omeprazole (Omeprazole 20 Mg Capsule.) 20 mg PO DAILY@0630 [facility] Last Admin: 05/08/25 06:11 Dose: 20 mg Risperidone (Risperidone 3 Mg Tablet) 3 mg PO TID [facility] Last Admin: 05/08/25 08:34 Dose: 3 mg Thiamine HCl (Thiamine Hcl 100 Mg Tablet) 100 mg PO DAILY [facility] Last Admin: 05/08/25 08:34 Dose: 100 mg Trazodone HCl (Trazodone Hcl 50 Mg Tablet) 50 mg PO BEDTIME MRX1 PRN PRN Reason: Insomnia Last Admin: 05/05/25 20:11 Dose: 50 mg Trazodone HCl (Trazodone Hcl 50 Mg Tablet) 150 mg PO BEDTIME [facility] Last Admin: 05/07/25 20:43 Dose: 150 mg Allergies Allergies Allergy/AdvReac Type Severity Reaction Status Date / Time acetaminophen Allergy Unknown PANADOL = Verified 04/26/25 02:41 ACETAMINOPHEN SHELLFISH Allergy Mild PATIENT Uncoded 04/26/25 02:41 REPORTS BURNING SENSATION THROUGHOUT OPIATES Allergy Unknown BECAME Uncoded 04/26/25 02:41 ADDICTED PANADOL Allergy Unknown UNKNOWN Uncoded 04/26/25 02:41 Assessment & Plan Assessment & Plan (1) Schizoaffective disorder: Qualifiers: Schizoaffective disorder type: unspecified Qualified Code(s): F25.9 - Schizoaffective disorder, unspecified Status: Acute Code(s): F25.9 - Schizoaffective disorder, unspecified (2) Intellectual delay: Status: Acute Code(s): F81.9 - Developmental disorder of scholastic skills, unspecified (3) Major neurocognitive disorder: Status: Acute Code(s): F03.90 - Unspecified dementia, unspecified severity, without behavioral disturbance, psychotic disturbance, mood disturbance, and anxiety Plan Patient is a 60 year old male with hx of schizoaffective d/o and intellectual delay who [place] [facility] [place] due to his family reporting patient has been aggressive and noncompliant with medication Plan: 12B 5 minute safety checks continue home mediations obtain collateral encourage groups discharge planning 04/28: Active on unit, social with Dominican speaking peers. medication compliant. hourly sign language interpreter present for assessment. disorganized. Answers questions inappropriately at times. flight of ideas. Stating his brother in law is a multiple times, however unable to explain how that was relevant to the conversation. Overheard making animal noises. Pt reports seeing blood on the cevallos and auditory hallucinations of airplane sounds . denies SI/HI. Per nursing, slept 7 hours last night. Transferred to Geriatric unit for continued care. 6/12 pt not oriented to situation, nor month nor year, which is baseline for him. He is overly friendly with poor boundaries at times. No aggression. taking medications as prescribed. filed for involuntary commitment. 05/01 - pt agitated but seeking IM medications- got good response- will repeat 05/02 response to ims was actually limited nursing report to 45min and provider last night reviewed chart and found depakote helpful in past- and has started reloading- I added 250mg er am dose to help thru day today- and prn haldol prn valium low dose - 05/03 started on depakote over the weekend. insisting on leaving thinking he has to go to work. 05/04 will switch depakote ER to DR 750mg po BID. will schedule olanzapine 5mg po TID. may need to add second mood stabilizer. 05/05 continue tx. 05/06 increase olanzapine to 10mg po TID, will continue risperidone for now as well. 05/07 depakote level 78. ammonia wnl. on two scheduled antipsychotics but continues to present with paranoid delusions, intrusive and more agitated. 05/08: Continue current regimen and plans Reason for continued inpatient stay Substantial Risk for: med/psych decompensation Time Spent With Patient Time: Total time managing care of this patient today ____ minutes.
[2025-05-08 20:00] VITALS: BP 124/74; PULSE 99; RESP 18; TEMP 36.4; O2SAT 98
[2025-05-09 07:52] VITALS: BP 115/69; PULSE 110; RESP 18; TEMP 36.8; O2SAT 98
[2025-05-09] MEDS: Aspirin Enteric Coated 81 MG TABLET.DR PO (09:01)
[2025-05-09] MEDS: Ferrous Sulfate 324 MG TABLET.DR PO (09:01)
[2025-05-09] MEDS: OLANZapine ODT 10 MG TAB.RAPDIS TRANSLINGU ×3 (09:01→20:12)
--- NOTE | 2025-05-09 11:21 | HO.PSYCHPN ---
Subjective Subjective Date of Service: 05/09/25 Reason For Visit: Crisis Subjective Notes: Conditional Voluntary Interim History: Patient was seen and discussed in rounds today. Records and plans were reviewed. He continues to need a lot of redirection because of his inappropriate behavior and intrusiveness. He also is exit seeking and yesterday was icing the food cart to breakthrough the door!. No complaints. No side effects. No SI. Review of Systems Review of Systems Yes Unobtainable due to mental status Mental Status Exam Mental Status Exam Narrative: In today's visit he is alert, pleasant and interactive. Normal speech. Good eye contact. He is pleasant and engageable. No acute signs of psychosis. Paranoid ideations and possible delusions reported. No SI. Cognitively impaired and disorganized. Judgment is impaired Diagnostics Vital Signs (24Hr): Vital Signs - 24 hr 05/08/25 20:00 05/09/25 07:52 Temperature 97.5 F 98.2 F Pulse Rate 99 110 H Respiratory Rate 18 18 Blood Pressure 124/74 115/69 Pulse Oximetry 98 98 Oxygen Delivery Method Room Air Room Air BMI result Body Mass Index 28.1 Labs 04/26/25 03:48 05/07/25 07:46 Medications Medications Current Medications Al Hydroxide/Mg Hydroxide (Magnesium Hydrox/Alum Hydrox 30 Ml Oral.Susp) 30 ml PO Q6H PRN PRN Reason: Heartburn/Nausea Last Admin: 04/29/25 21:29 Dose: 30 ml Albuterol Sulfate (Albuterol Sulfate 90 Mcg 8 Gm Inhaler) 2 puff INHALE Q4H PRN PRN Reason: Wheezing Amlodipine Besylate (Amlodipine Besylate 2.5 Mg Tablet) 2.5 mg PO DAILY [facility]; Protocol Last Admin: 05/09/25 09:02 Dose: 2.5 mg Artificial Tears (Artificial Tears 15 Ml Drops) 2 drop EYE-BOTH Q4H PRN PRN Reason: Dry Eyes Last Admin: 05/08/25 00:45 Dose: 2 drop Aspirin (Aspirin Enteric Coated 81 Mg Tablet.) 81 mg PO DAILY [facility] Last Admin: 05/09/25 09:01 Dose: 81 mg Atorvastatin Calcium (Atorvastatin Calcium 40 Mg Tablet) 40 mg PO BEDTIME [facility] Last Admin: 05/08/25 20:01 Dose: 40 mg Benztropine Mesylate (Benztropine Mesylate 1 Mg Tablet) 1 mg PO BEDTIME [facility] Last Admin: 05/08/25 20:01 Dose: 1 mg Clotrimazole (Clotrimazole 1 % Cream 15 Gm Tube) 1 appl TOPICAL BID [facility]; Protocol Diazepam (Diazepam 2 Mg Tablet) 2 mg PO TID PRN PRN Reason: Restlessness Last Admin: 05/07/25 23:41 Dose: 2 mg Diazepam (Diazepam 2 Mg Tablet) 2 mg PO TID [facility] Last Admin: 05/09/25 09:01 Dose: 2 mg Divalproex Sodium (Divalproex Sodium 250 Mg Tablet.) 750 mg PO BID [facility] Last Admin: 05/09/25 09:01 Dose: 750 mg Ferrous Sulfate (Ferrous Sulfate 324 Mg Tablet.) 324 mg PO DAILY [facility] Last Admin: 05/09/25 09:01 Dose: 324 mg Folic Acid (Folic Acid 1 Mg Tablet) 1 mg PO DAILY [facility] Last Admin: 05/09/25 09:02 Dose: 1 mg Haloperidol (Haloperidol 5 Mg Tablet) 10 mg PO TID PRN PRN Reason: agitation Last Admin: 05/08/25 22:47 Dose: 10 mg Magnesium Hydroxide (Milk Of Magnesia 30 Ml Oral.Susp) 30 ml PO DAILY PRN PRN Reason: Constipation Nicotine (Nicotine 21 Mg Patch.Td24) 21 mg TRANSDERMA DAILY [facility] Last Admin: 05/09/25 10:43 Dose: Not Given Nicotine Polacrilex (Nicotine Polacrilex 2 Mg Gum) 4 mg BUCCAL Q2H PRN PRN Reason: Nicotine Cravings Olanzapine (Olanzapine Odt 10 Mg Tab.Rapdis) 10 mg TRANSLINGU TID [facility] Last Admin: 05/09/25 09:01 Dose: 10 mg Omeprazole (Omeprazole 20 Mg Capsule.) 20 mg PO DAILY@0630 [facility] Last Admin: 05/09/25 05:12 Dose: 20 mg Risperidone (Risperidone 3 Mg Tablet) 3 mg PO TID [facility] Last Admin: 05/09/25 09:02 Dose: 3 mg Thiamine HCl (Thiamine Hcl 100 Mg Tablet) 100 mg PO DAILY [facility] Last Admin: 05/09/25 09:02 Dose: 100 mg Trazodone HCl (Trazodone Hcl 50 Mg Tablet) 50 mg PO BEDTIME MRX1 PRN PRN Reason: Insomnia Last Admin: 05/08/25 22:47 Dose: 50 mg Trazodone HCl (Trazodone Hcl 50 Mg Tablet) 150 mg PO BEDTIME [facility] Last Admin: 05/08/25 19:59 Dose: 150 mg Allergies Allergies Allergy/AdvReac Type Severity Reaction Status Date / Time acetaminophen Allergy Unknown PANADOL = Verified 04/26/25 02:41 ACETAMINOPHEN SHELLFISH Allergy Mild PATIENT Uncoded 04/26/25 02:41 REPORTS BURNING SENSATION THROUGHOUT OPIATES Allergy Unknown BECAME Uncoded 04/26/25 02:41 ADDICTED PANADOL Allergy Unknown UNKNOWN Uncoded 04/26/25 02:41 Assessment & Plan Assessment & Plan (1) Schizoaffective disorder: Qualifiers: Schizoaffective disorder type: unspecified Qualified Code(s): F25.9 - Schizoaffective disorder, unspecified Status: Acute Code(s): F25.9 - Schizoaffective disorder, unspecified (2) Intellectual delay: Status: Acute Code(s): F81.9 - Developmental disorder of scholastic skills, unspecified (3) Major neurocognitive disorder: Status: Acute Code(s): F03.90 - Unspecified dementia, unspecified severity, without behavioral disturbance, psychotic disturbance, mood disturbance, and anxiety Plan Patient is a 60 year old male with hx of schizoaffective d/o and intellectual delay who [place] [facility] due to his family reporting patient has been aggressive and noncompliant with medication Plan: 12B 5 minute safety checks continue home mediations obtain collateral encourage groups discharge planning 04/28: Active on unit, social with Hungarian speaking peers. medication compliant. 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 disorganized. Answers questions inappropriately at times. flight of ideas. Stating his brother in law is a multiple times, however unable to explain how that was relevant to the conversation. Overheard making animal noises. Pt reports seeing blood on the cevallos and auditory hallucinations of airplane sounds . denies SI/HI. Per nursing, slept 7 hours last night. Transferred to Geriatric unit for continued care. 04/29 pt not oriented to situation, nor month nor year, which is baseline for him. He is overly friendly with poor boundaries at times. No aggression. taking medications as prescribed. filed for involuntary commitment. 05/01 - pt agitated but seeking IM medications- got good response- will repeat 05/02 response to ims was actually limited nursing report to 45min and provider last night reviewed chart and found depakote helpful in past- and has started reloading- I added 250mg er am dose to help thru day today- and prn haldol prn valium low dose - 05/03 started on depakote over the weekend. insisting on leaving thinking he has to go to work. 05/04 will switch depakote ER to DR 750mg po BID. will schedule olanzapine 5mg po TID. may need to add second mood stabilizer. 05/05 continue tx. 05/06 increase olanzapine to 10mg po TID, will continue risperidone for now as well. 05/07 depakote level 78. ammonia wnl. on two scheduled antipsychotics but continues to present with paranoid delusions, intrusive and more agitated. 05/08: Continue current regimen and plans 05/09: Continue current regimen and plans Reason for continued inpatient stay Substantial Risk for: inability to function Time Spent With Patient Time: Total time managing care of this patient today ____ minutes.
[2025-05-09] MEDS: Artificial Tears 15 ML DROPS 2 DROP EYE-BOTH (15:53)
[2025-05-09] MEDS: Clotrimazole 1 % Cream 15 GM TUBE 1 APPL TOPICAL ×2 (18:58→20:31)
[2025-05-09 20:00] VITALS: BP 121/77; PULSE 110; RESP 18; TEMP 36.6; O2SAT 97
[2025-05-10 08:44] VITALS: BP 135/84; PULSE 120; RESP 16; TEMP 37.1; O2SAT 96
[2025-05-10] MEDS: OLANZapine ODT 10 MG TAB.RAPDIS TRANSLINGU ×3 (08:45→19:45)
[2025-05-10] MEDS: Ferrous Sulfate 324 MG TABLET.DR PO (08:45)
[2025-05-10] MEDS: Aspirin Enteric Coated 81 MG TABLET.DR PO (08:46)
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
--- NOTE | 2025-05-10 18:17 | PC.NURSE ---
Pt utilized Haldol 10mg PO and Valium 2mg PO today, due to being restless, intrusive with patients and staff, anxious, and agitated. We were unable to verbally redirect him, so these prn's were given. Pt accepted them. Effectiveness pending.
--- NOTE | 2025-05-10 19:14 | PC.NURSE ---
Pt just given Thorzine 100mg, prn due an increase in agitation, restlessness, and intrusiveness. Staff constantly providing redirection. Sometimes multiple staff at the same time. Effectiveness pending.
[2025-05-10] MEDS: Clotrimazole 1 % Cream 15 GM TUBE 1 APPL TOPICAL (19:46)
[2025-05-10 19:49] VITALS: BP 128/88; PULSE 112; RESP 18; TEMP 37.1; O2SAT 98
[2025-05-11 07:56] VITALS: BP 136/78
[2025-05-11] MEDS: OLANZapine ODT 10 MG TAB.RAPDIS TRANSLINGU ×3 (07:56→20:39)
[2025-05-11] MEDS: Aspirin Enteric Coated 81 MG TABLET.DR PO (07:57)
[2025-05-11] MEDS: Ferrous Sulfate 324 MG TABLET.DR PO (07:57)
[2025-05-11 08:00] VITALS: BP 136/78; PULSE 115; RESP 16; TEMP 36.8; O2SAT 96
[2025-05-11] MEDS: Clotrimazole 1 % Cream 15 GM TUBE 1 APPL TOPICAL ×2 (08:00→20:47)
[2025-05-11 20:00] VITALS: BP 116/76; PULSE 90; RESP 20; TEMP 36.7; O2SAT 97
[2025-05-12 08:00] VITALS: BP 135/77; PULSE 116; RESP 17; TEMP 36.9; O2SAT 97
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
[2025-05-12] MEDS: OLANZapine ODT 10 MG TAB.RAPDIS TRANSLINGU ×3 (08:46→20:32)
[2025-05-12] MEDS: Clotrimazole 1 % Cream 15 GM TUBE 1 APPL TOPICAL ×2 (08:46→20:35)
[2025-05-12] MEDS: Ferrous Sulfate 324 MG TABLET.DR PO (08:46)
[2025-05-12] MEDS: Aspirin Enteric Coated 81 MG TABLET.DR PO (08:46)
[2025-05-12 20:00] VITALS: BP 136/80; PULSE 110; TEMP 36.6; O2SAT 98
[2025-05-13 08:00] VITALS: BP 129/62; PULSE 114; RESP 16; TEMP 36.6; O2SAT 97
[2025-05-13] MEDS: Ferrous Sulfate 324 MG TABLET.DR PO (08:57)
[2025-05-13] MEDS: Aspirin Enteric Coated 81 MG TABLET.DR PO (08:57)
[2025-05-13] MEDS: OLANZapine ODT 10 MG TAB.RAPDIS TRANSLINGU ×2 (08:57→17:02)
[2025-05-13 10:00] VITALS: BMI 27.8
[2025-05-13] MEDS: Clotrimazole 1 % Cream 15 GM TUBE 1 APPL TOPICAL ×2 (12:00→22:17)
--- NOTE | 2025-05-13 15:28 | PC.NURSE ---
Leaning to the right when walking spoke with practitioner and had this medical writer hold his 3p Valium and olanzapine.
--- NOTE | 2025-05-13 17:14 | P.PNPSI_ITS ---
Subjective Subjective Date of Service: 05/13/25 Reason For Visit: Crisis Subjective Notes: Section 8 Interim History: Pt slept through the night. Pt agitated, stating he needs to go because someone is going to stab him at night. He is fearful. he continues to present as intrusive with peers and staff. confused as to thinking people on the unit are family members or long time friends. He is taking medications. Noted cogwheel, drooling, leaning to one side suspect s/s to medications. Will d/c schedule olanzapine, keep risperidone, d/c haldol prn. Use olanzapine as PRN. He used to be on carbamazepine which may be better mood stabilizer for him than depakote. Medication Compliance: Yes Side effects from medications: Yes (drooling, cogwheel) Review of Systems Review of Systems Yes all other systems are reviewed and are negative and Unobtainable due to mental status Mental Status Exam Mental Status Exam Narrative: Appearance: wearing hospital gown,in NAD Behavior: friendly and cooperative Speech: clear, regular rate/rhythm/volume, spontaneous TP: goal oriented- wanting to go home TC: wanting to go Mood: I'm leaving! Affect: somewhat irritable, persistent about leaving, despite being told he is not discharging today SI: denies HI: denies VH/AH:no overt Delusions: some paranoid delusions, but also ideas that he is and works. fregoli delusions. Insight/judgment: limited x 2. Memory/cog: alert, oriented to place, not month nor year, nor situation. Diagnostics Vital Signs (24Hr): Vital Signs - 24 hr 05/12/25 20:00 05/13/25 08:00 Temperature 97.8 F 97.9 F Pulse Rate 110 H 114 H Respiratory Rate 16 Blood Pressure 136/80 129/62 Pulse Oximetry 98 97 Oxygen Delivery Method Room Air Room Air BMI result Body Mass Index 27.8 Labs 05/13/25 17:27 05/13/25 17:27 Medications Medications Current Medications Al Hydroxide/Mg Hydroxide (Magnesium Hydrox/Alum Hydrox 30 Ml Oral.Susp) 30 ml PO Q6H PRN PRN Reason: Heartburn/Nausea Last Admin: 04/29/25 21:29 Dose: 30 ml Albuterol Sulfate (Albuterol Sulfate 90 Mcg 8 Gm Inhaler) 2 puff INHALE Q4H PRN PRN Reason: Wheezing Amlodipine Besylate (Amlodipine Besylate 2.5 Mg Tablet) 2.5 mg PO DAILY [facility]; Protocol Last Admin: 05/13/25 08:57 Dose: 2.5 mg Artificial Tears (Artificial Tears 15 Ml Drops) 2 drop EYE-BOTH Q4H PRN PRN Reason: Dry Eyes Last Admin: 05/09/25 15:53 Dose: 2 drop Aspirin (Aspirin Enteric Coated 81 Mg Tablet.) 81 mg PO DAILY [facility] Last Admin: 05/13/25 08:57 Dose: 81 mg Atorvastatin Calcium (Atorvastatin Calcium 40 Mg Tablet) 40 mg PO BEDTIME [facility] Last Admin: 05/12/25 20:32 Dose: 40 mg Benztropine Mesylate (Benztropine Mesylate 1 Mg Tablet) 1 mg PO BID [facility] Carbamazepine (Carbamazepine 200 Mg Tablet) 200 mg PO BID [facility] Clotrimazole (Clotrimazole 1 % Cream 15 Gm Tube) 1 appl TOPICAL BID [facility]; Protocol Last Admin: 05/13/25 12:00 Dose: 1 appl Diazepam (Diazepam 5 Mg Tablet) 5 mg PO TID [facility] Last Admin: 05/13/25 16:55 Dose: 5 mg Divalproex Sodium (Divalproex Sodium 250 Mg Tablet.) 750 mg PO BID [facility] Last Admin: 05/13/25 08:56 Dose: 750 mg Ferrous Sulfate (Ferrous Sulfate 324 Mg Tablet.) 324 mg PO DAILY [facility] Last Admin: 05/13/25 08:57 Dose: 324 mg Folic Acid (Folic Acid 1 Mg Tablet) 1 mg PO DAILY [facility] Last Admin: 05/13/25 08:57 Dose: 1 mg Ibuprofen (Ibuprofen 600 Mg Tablet) 600 mg PO Q6H PRN PRN Reason: moderate,pain Last Admin: 05/12/25 09:01 Dose: 600 mg Magnesium Hydroxide (Milk Of Magnesia 30 Ml Oral.Susp) 30 ml PO DAILY PRN PRN Reason: Constipation Nicotine (Nicotine 21 Mg Patch.Td24) 21 mg TRANSDERMA DAILY [facility] Last Admin: 05/13/25 09:04 Dose: Not Given Nicotine Polacrilex (Nicotine Polacrilex 2 Mg Gum) 4 mg BUCCAL Q2H PRN PRN Reason: Nicotine Cravings Olanzapine (Olanzapine Odt 10 Mg Tab.Rapdis) 10 mg TRANSLINGU Q6H PRN PRN Reason: agitation Omeprazole (Omeprazole 20 Mg Capsule.) 20 mg PO DAILY@0630 [facility] Last Admin: 05/13/25 06:41 Dose: 20 mg Risperidone (Risperidone 3 Mg Tablet) 3 mg PO TID [facility] Last Admin: 05/13/25 15:10 Dose: 3 mg Thiamine HCl (Thiamine Hcl 100 Mg Tablet) 100 mg PO DAILY [facility] Last Admin: 05/13/25 08:57 Dose: 100 mg Trazodone HCl (Trazodone Hcl 50 Mg Tablet) 150 mg PO BEDTIME [facility] Last Admin: 05/12/25 20:32 Dose: 150 mg Allergies Allergies Allergy/AdvReac Type Severity Reaction Status Date / Time acetaminophen Allergy Unknown PANADOL = Verified 04/26/25 02:41 ACETAMINOPHEN SHELLFISH Allergy Mild PATIENT Uncoded 04/26/25 02:41 REPORTS BURNING SENSATION THROUGHOUT OPIATES Allergy Unknown BECAME Uncoded 04/26/25 02:41 ADDICTED PANADOL Allergy Unknown UNKNOWN Uncoded 04/26/25 02:41 Assessment & Plan Assessment & Plan (1) Schizoaffective disorder: Qualifiers: Schizoaffective disorder type: unspecified Qualified Code(s): F25.9 - Schizoaffective disorder, unspecified Status: Acute Code(s): F25.9 - Schizoaffective disorder, unspecified (2) Intellectual delay: Status: Acute Code(s): F81.9 - Developmental disorder of scholastic skills, unspecified (3) Major neurocognitive disorder: Status: Acute Code(s): F03.90 - Unspecified dementia, unspecified severity, without behavioral disturbance, psychotic disturbance, mood disturbance, and anxiety Plan Patient is a 60 year old male with hx of schizoaffective d/o and intellectual delay who was brought to [facility] via ambulance from home due to his family reporting patient has been aggressive and noncompliant with medication Plan: 12B 5 minute safety checks continue home mediations obtain collateral encourage groups discharge planning 04/28: Active on unit, social with [place] speaking peers. medication compliant. 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 disorganized. Answers questions inappropriately at times. flight of ideas. Stating his brother in law is a multiple times, however unable to explain how that was relevant to the conversation. Overheard making animal noises. Pt reports seeing blood on the cevallos and auditory hallucinations of airplane sounds . denies SI/HI. Per nursing, slept 7 hours last night. Transferred to Geriatric unit for continued care. 04/29 pt not oriented to situation, nor month nor year, which is baseline for him. He is overly friendly with poor boundaries at times. No aggression. taking medications as prescribed. filed for involuntary commitment. 05/01 - pt agitated but seeking IM medications- got good response- will repeat 05/02 response to ims was actually limited nursing report to 45min and provider last night reviewed chart and found depakote helpful in past- and has started reloading- I added 250mg er am dose to help thru day today- and prn haldol prn valium low dose - 05/03 started on depakote over the weekend. insisting on leaving thinking he has to go to work. 05/04 will switch depakote ER to DR 750mg po BID. will schedule olanzapine 5mg po TID. may need to add second mood stabilizer. 05/05 continue tx. 05/06 increase olanzapine to 10mg po TID, will continue risperidone for now as well. 05/07 depakote level 78. ammonia wnl. on two scheduled antipsychotics but continues to present with paranoid delusions, intrusive and more agitated. 05/08: Continue current regimen and plans 05/09: Continue current regimen and plans 05/10 will add carbamazepine, as pt continues to present as intrusive, paranoid. 05/11 continue current tx. before making other changes. 05/12 continue tx. 05/13 continues with fregoli and paranoid delusions. very fearful about being on the unit because he thinks he is going to be killed. Pt having EPS side effects from antipsychotics- will d/c olanzapine scheduled which will leave as PRN, D/C haldol due to EPS. increase cogentin 1mg po BID. continue risperidone 3mg po TID. Continue depakote 750mg po BID, add carbamazepine 200mg po BID (may switch depakote to carbamazepine as he used to be on this medication and seemed to have worked better). Reason for continued inpatient stay Substantial Risk for: inability to function Time Spent With Patient Time: Total time managing care of this patient today ____ minutes.
[2025-05-13 17:31] LABS: MANUAL DIFF FLAG NO
[2025-05-13 17:35] LABS: Hematocrit 36.8 % (42.0-52.0); Hemoglobin 12.3 g/dl (14.0-18.0); Imm Gran Abs Auto 0.09 X10*3/uL (0.00-0.03); Imm Gran Pct Auto 1.2 % (0.0-0.4); Lymphocytes Absolute Auto 1.7 X10*3/uL (1.2-4.9); Mean Corpuscular HGB Conc 33.4 g/dl (31.0-36.0); Mean Corpuscular Hemoglobin 27.8 pg (27.0-33.0); Mean Corpuscular Volume 83.1 fL (80.0-98.0); NRBC Abs Auto 0.000 X10*3/uL (0.0-0.012); NRBC Pct Auto 0.0 /100WBC (0.0-0.2); Platelet Count 259 X10*3/uL (160-400); Red Blood Count 4.43 X10*6/uL (4.60-5.80); White Blood Count 7.4 X10*3/uL (4.8-10.8)
[2025-05-13 17:40] LABS: Ammonia 49 umol/L (13-55)
[2025-05-13 17:49] LABS: Alanine Aminotransferase 40 U/L (0-40); Albumin Level 4.1 g/dL (3.5-5.0); Alkaline Phosphatase 90 U/L (39-117); Anion Gap 13 (12-20); Aspartate Amino Transferase 70 U/L (5-37); Blood Urea Nitrogen 15 mg/dL (9-16); Calcium 9.4 mg/dL (8.4-10.2); Carbon Dioxide 24 mmol/L (22-29); Chloride 104 mmol/L (96-108); Creatinine Clr Calc Pharmacy 99.0; Estimated Glomerular Filt Rate > 60; Potassium 4.0 mmol/L (3.3-5.1); Sodium 137 mmol/L (135-145); Total Protein 7.2 g/dL (6.5-8.0)
[2025-05-13 20:00] VITALS: BP 132/77; PULSE 104; RESP 16; TEMP 36.5; O2SAT 98
[2025-05-14] MEDS: OLANZapine ODT 10 MG TAB.RAPDIS TRANSLINGU ×2 (02:35→20:27)
[2025-05-14 07:55] VITALS: BP 117/69; PULSE 100; RESP 18; TEMP 36.8; O2SAT 98
[2025-05-14] MEDS: Aspirin Enteric Coated 81 MG TABLET.DR PO (08:26)
[2025-05-14] MEDS: Ferrous Sulfate 324 MG TABLET.DR PO (08:26)
[2025-05-14] MEDS: Clotrimazole 1 % Cream 15 GM TUBE 1 APPL TOPICAL (08:31)
--- NOTE | 2025-05-14 11:57 | P.PNPSI_ITS ---
Subjective Subjective Date of Service: 05/14/25 Reason For Visit: Crisis Subjective Notes: Conditional Voluntary Interim History: Pt slept through the night. Pt unsteady on his feet, may take few days after medication changes to see decrease sedation, drooling and impaired gait. he continues to present with paranoid delusions thinking he is going to be killed and needs to leave. taking medications as prescribed. Review of Systems Review of Systems Yes all other systems are reviewed and are negative and Unobtainable due to mental status Mental Status Exam Mental Status Exam Narrative: Appearance: wearing hospital gown,in NAD Behavior: friendly and cooperative Speech: clear, regular rate/rhythm/volume, spontaneous TP: goal oriented- wanting to go home TC: wanting to go Mood: I'm leaving! Affect: somewhat irritable, persistent about leaving, despite being told he is not discharging today SI: denies HI: denies VH/AH:no overt Delusions: some paranoid delusions, but also ideas that he is and works. fregoli delusions. Insight/judgment: limited x 2. Memory/cog: alert, oriented to place, not month nor year, nor situation. Diagnostics Vital Signs (24Hr): Vital Signs - 24 hr 05/13/25 20:00 05/14/25 07:55 Temperature 97.7 F 98.2 F Pulse Rate 104 H 100 Respiratory Rate 16 18 Blood Pressure 132/77 117/69 Pulse Oximetry 98 98 Oxygen Delivery Method Room Air Room Air BMI result Body Mass Index 27.8 Labs 05/13/25 17:27 05/13/25 17:27 Labs: Laboratory Results - last 48 hr 05/13/25 17:27 WBC 7.4 RBC 4.43 L Hgb 12.3 L Hct 36.8 L MCV 83.1 MCH 27.8 MCHC 33.4 RDW 16.2 H Plt Count 259 D MPV 9.9 Immature Gran % (Auto) 1.2 H Neut % (Auto) 60.9 Lymph % (Auto) 22.8 [place] % (Auto) 12.0 H Eos % (Auto) 2.7 Baso % (Auto) 0.4 Lymph # (Auto) 1.7 [place] # (Auto) 0.9 Eos # (Auto) 0.2 Baso # (Auto) 0.0 Abs Immat Gran (auto) 0.09 H Absolute Neuts (auto) 4.5 Absolute Nucleated RBC 0.000 Nucleated RBC % (auto) 0.0 Sodium 137 Potassium 4.0 Chloride 104 Carbon Dioxide 24 Anion Gap 13 BUN 15 Creatinine 0.72 Estim Creat Clear Calc 99.0 Estimated GFR > 60 Random Glucose 141 H Calcium 9.4 Total Bilirubin 0.2 AST 70 H ALT 40 Alkaline Phosphatase 90 Ammonia 49 Total Protein 7.2 Albumin 4.1 Medications Medications Current Medications Al Hydroxide/Mg Hydroxide (Magnesium Hydrox/Alum Hydrox 30 Ml Oral.Susp) 30 ml PO Q6H PRN PRN Reason: Heartburn/Nausea Last Admin: 04/29/25 21:29 Dose: 30 ml Albuterol Sulfate (Albuterol Sulfate 90 Mcg 8 Gm Inhaler) 2 puff INHALE Q4H PRN PRN Reason: Wheezing Amlodipine Besylate (Amlodipine Besylate 2.5 Mg Tablet) 2.5 mg PO DAILY [facility]; Protocol Last Admin: 05/14/25 08:26 Dose: 2.5 mg Artificial Tears (Artificial Tears 15 Ml Drops) 2 drop EYE-BOTH Q4H PRN PRN Reason: Dry Eyes Last Admin: 05/09/25 15:53 Dose: 2 drop Aspirin (Aspirin Enteric Coated 81 Mg Tablet.) 81 mg PO DAILY [facility] Last Admin: 05/14/25 08:26 Dose: 81 mg Atorvastatin Calcium (Atorvastatin Calcium 40 Mg Tablet) 40 mg PO BEDTIME [facility] Last Admin: 05/13/25 21:03 Dose: 40 mg Benztropine Mesylate (Benztropine Mesylate 1 Mg Tablet) 1 mg PO BID [facility] Last Admin: 05/14/25 08:26 Dose: 1 mg Carbamazepine (Carbamazepine 200 Mg Tablet) 200 mg PO BID [facility] Last Admin: 05/14/25 08:26 Dose: 200 mg Clotrimazole (Clotrimazole 1 % Cream 15 Gm Tube) 1 appl TOPICAL BID [facility]; Protocol Last Admin: 05/14/25 08:31 Dose: 1 appl Diazepam (Diazepam 5 Mg Tablet) 5 mg PO TID [facility] Last Admin: 05/14/25 08:26 Dose: 5 mg Divalproex Sodium (Divalproex Sodium 250 Mg Tablet.) 750 mg PO BID [facility] Last Admin: 05/14/25 08:26 Dose: 750 mg Ferrous Sulfate (Ferrous Sulfate 324 Mg Tablet.) 324 mg PO DAILY [facility] Last Admin: 05/14/25 08:26 Dose: 324 mg Folic Acid (Folic Acid 1 Mg Tablet) 1 mg PO DAILY [facility] Last Admin: 05/14/25 08:26 Dose: 1 mg Ibuprofen (Ibuprofen 600 Mg Tablet) 600 mg PO Q6H PRN PRN Reason: moderate,pain Last Admin: 05/12/25 09:01 Dose: 600 mg Magnesium Hydroxide (Milk Of Magnesia 30 Ml Oral.Susp) 30 ml PO DAILY PRN PRN Reason: Constipation Nicotine (Nicotine 21 Mg Patch.Td24) 21 mg TRANSDERMA DAILY [facility] Last Admin: 05/14/25 08:27 Dose: Not Given Nicotine Polacrilex (Nicotine Polacrilex 2 Mg Gum) 4 mg BUCCAL Q2H PRN PRN Reason: Nicotine Cravings Olanzapine (Olanzapine Odt 10 Mg Tab.Rapdis) 10 mg TRANSLINGU Q6H PRN PRN Reason: agitation Last Admin: 05/14/25 02:35 Dose: 10 mg Omeprazole (Omeprazole 20 Mg Capsule.Dr) 20 mg PO DAILY@0630 [facility] Last Admin: 05/14/25 06:05 Dose: 20 mg Risperidone (Risperidone 3 Mg Tablet) 3 mg PO TID [facility] Last Admin: 05/14/25 08:26 Dose: 3 mg Thiamine HCl (Thiamine Hcl 100 Mg Tablet) 100 mg PO DAILY [facility] Last Admin: 05/14/25 08:26 Dose: 100 mg Trazodone HCl (Trazodone Hcl 50 Mg Tablet) 150 mg PO BEDTIME [facility] Last Admin: 05/13/25 21:02 Dose: 150 mg Allergies Allergies Allergy/AdvReac Type Severity Reaction Status Date / Time acetaminophen Allergy Unknown PANADOL = Verified 04/26/25 02:41 ACETAMINOPHEN SHELLFISH Allergy Mild PATIENT Uncoded 04/26/25 02:41 REPORTS BURNING SENSATION THROUGHOUT OPIATES Allergy Unknown BECAME Uncoded 04/26/25 02:41 ADDICTED PANADOL Allergy Unknown UNKNOWN Uncoded 04/26/25 02:41 Assessment & Plan Assessment & Plan (1) Schizoaffective disorder: Qualifiers: Schizoaffective disorder type: unspecified Qualified Code(s): F25.9 - Schizoaffective disorder, unspecified Status: Acute Code(s): F25.9 - Schizoaffective disorder, unspecified (2) Intellectual delay: Status: Acute Code(s): F81.9 - Developmental disorder of scholastic skills, unspecified (3) Major neurocognitive disorder: Status: Acute Code(s): F03.90 - Unspecified dementia, unspecified severity, without behavioral disturbance, psychotic disturbance, mood disturbance, and anxiety Plan Patient is a 60 year old male with hx of schizoaffective d/o and intellectual delay who was brought to [facility] via ambulance from home due to his family reporting patient has been aggressive and noncompliant with medication Plan: 12B 5 minute safety checks continue home mediations obtain collateral encourage groups discharge planning 04/28: Active on unit, social with [place] speaking peers. medication compliant. oil scout present for assessment. disorganized. Answers questions inappropriately at times. flight of ideas. Stating his brother in law is a multiple times, however unable to explain how that was relevant to the conversation. Overheard making animal noises. Pt reports seeing blood on the cevallos and auditory hallucinations of airplane sounds . denies SI/HI. Per nursing, slept 7 hours last night. Transferred to Geriatric unit for continued care. 04/29 pt not oriented to situation, nor month nor year, which is baseline for him. He is overly friendly with poor boundaries at times. No aggression. taking medications as prescribed. filed for involuntary commitment. 05/01 - pt agitated but seeking IM medications- got good response- will repeat 05/02 response to ims was actually limited nursing report to 45min and provider last night reviewed chart and found depakote helpful in past- and has started reloading- I added 250mg er am dose to help thru day today- and prn haldol prn valium low dose - 05/03 started on depakote over the weekend. insisting on leaving thinking he has to go to work. 05/04 will switch depakote ER to DR 750mg po BID. will schedule olanzapine 5mg po TID. may need to add second mood stabilizer. 05/05 continue tx. 05/06 increase olanzapine to 10mg po TID, will continue risperidone for now as well. 05/07 depakote level 78. ammonia wnl. on two scheduled antipsychotics but continues to present with paranoid delusions, intrusive and more agitated. 05/08: Continue current regimen and plans 05/09: Continue current regimen and plans 05/10 will add carbamazepine, as pt continues to present as intrusive, paranoid. 05/11 continue current tx. before making other changes. 05/12 continue tx. 05/13 continues with fregoli and paranoid delusions. very fearful about being on the unit because he thinks he is going to be killed. Pt having EPS side effects from antipsychotics- will d/c olanzapine scheduled which will leave as PRN, D/C haldol due to EPS. increase cogentin 1mg po BID. continue risperidone 3mg po TID. Continue depakote 750mg po BID, add carbamazepine 200mg po BID (may switch depakote to carbamazepine as he used to be on this medication and seemed to have worked better). 05/14 decrease risperidone to 2mg po TID, don't think higher doses have increase therapeutic effect. he does need more time with the medications. continue valium 2mg po TID, carbamazepine and depakote. Reason for continued inpatient stay Substantial Risk for: inability to function Time Spent With Patient Time: Total time managing care of this patient today ____ minutes.
[2025-05-15] MEDS: OLANZapine ODT 10 MG TAB.RAPDIS TRANSLINGU ×2 (03:53→21:45)
[2025-05-15 08:00] VITALS: BP 120/61; PULSE 81; RESP 18; TEMP 36.8; O2SAT 99
[2025-05-15] MEDS: Clotrimazole 1 % Cream 15 GM TUBE 1 APPL TOPICAL ×2 (10:19→20:14)
[2025-05-15] MEDS: Ferrous Sulfate 324 MG TABLET.DR PO (10:20)
[2025-05-15 10:21] VITALS: BP 120/61
[2025-05-15] MEDS: Aspirin Enteric Coated 81 MG TABLET.DR PO (10:21)
--- NOTE | 2025-05-15 17:33 | PC.NURSE ---
Patient wanders around the unit, intrusive, impulsive, disruptive, taking his clothes off in common areas, requires frequent re-directions. On 1:1 observation. Taking meds as prescribed. Had a witnessed fall in a hallway at 15:30. Georgette Abarca and nursing metal furniture assembly supervisor notified. Blair Neumann/Guardian called, no voice mail available, phone # [phone]. Pt didn't hit his head. No injury noted upon assessment. Incident report completed.
--- NOTE | 2025-05-15 19:20 | P.PNPSI_ITS ---
Subjective Subjective Date of Service: 05/15/25 Reason For Visit: Crisis Subjective Notes: Section 8 Interim History: Pt slept through the night. Much less sedation and less cogwheel and no drooling today. he is ambulating without any issues. He is slightly calmer, less intrusive but continues to present with paranoid delusions thinking that he is going to be killed. He is taking medications as prescribed. social with Lao speaking peers. Review of Systems Review of Systems Yes all other systems are reviewed and are negative and Unobtainable due to mental status Mental Status Exam Mental Status Exam Narrative: Appearance: wearing hospital gown,in NAD Behavior: friendly and cooperative Speech: clear, regular rate/rhythm/volume, spontaneous TP: goal oriented- wanting to go home TC: wanting to go Mood: I'm leaving! Affect: somewhat irritable, persistent about leaving, despite being told he is not discharging today SI: denies HI: denies VH/AH:no overt Delusions: some paranoid delusions, but also ideas that he is and works. fregoli delusions. Insight/judgment: limited x 2. Memory/cog: alert, oriented to place, not month nor year, nor situation. Diagnostics Vital Signs (24Hr): Vital Signs - 24 hr 05/15/25 08:00 05/15/25 10:21 Temperature 98.2 F Pulse Rate 81 Respiratory Rate 18 Blood Pressure 120/61 120/61 Pulse Oximetry 99 Oxygen Delivery Method Room Air BMI result Body Mass Index 27.8 Labs 05/13/25 17:27 05/13/25 17:27 Medications Medications Current Medications Al Hydroxide/Mg Hydroxide (Magnesium Hydrox/Alum Hydrox 30 Ml Oral.Susp) 30 ml PO Q6H PRN PRN Reason: Heartburn/Nausea Last Admin: 04/29/25 21:29 Dose: 30 ml Albuterol Sulfate (Albuterol Sulfate 90 Mcg 8 Gm Inhaler) 2 puff INHALE Q4H PRN PRN Reason: Wheezing Amlodipine Besylate (Amlodipine Besylate 2.5 Mg Tablet) 2.5 mg PO DAILY KAREN; Protocol Last Admin: 05/15/25 10:21 Dose: 2.5 mg Artificial Tears (Artificial Tears 15 Ml Drops) 2 drop EYE-BOTH Q4H PRN PRN Reason: Dry Eyes Last Admin: 05/09/25 15:53 Dose: 2 drop Aspirin (Aspirin Enteric Coated 81 Mg Tablet.) 81 mg PO DAILY [facility] Last Admin: 05/15/25 10:21 Dose: 81 mg Atorvastatin Calcium (Atorvastatin Calcium 40 Mg Tablet) 40 mg PO BEDTIME [facility] Last Admin: 05/14/25 20:26 Dose: 40 mg Benztropine Mesylate (Benztropine Mesylate 0.5 Mg Tablet) 0.5 mg PO TID [facility] Carbamazepine (Carbamazepine 200 Mg Tablet) 200 mg PO BID [facility] Last Admin: 05/15/25 10:20 Dose: 200 mg Clotrimazole (Clotrimazole 1 % Cream 15 Gm Tube) 1 appl TOPICAL BID [facility]; Protocol Last Admin: 05/15/25 10:19 Dose: 1 appl Diazepam (Diazepam 2 Mg Tablet) 2 mg PO TID [facility] Last Admin: 05/15/25 15:08 Dose: 2 mg Divalproex Sodium (Divalproex Sodium 500 Mg Tablet.) 500 mg PO BID [facility] Last Admin: 05/15/25 10:20 Dose: 500 mg Ferrous Sulfate (Ferrous Sulfate 324 Mg Tablet.) 324 mg PO DAILY [facility] Last Admin: 05/15/25 10:20 Dose: 324 mg Folic Acid (Folic Acid 1 Mg Tablet) 1 mg PO DAILY [facility] Last Admin: 05/15/25 10:20 Dose: 1 mg Ibuprofen (Ibuprofen 600 Mg Tablet) 600 mg PO Q6H PRN PRN Reason: moderate,pain Last Admin: 05/14/25 20:26 Dose: 600 mg Magnesium Hydroxide (Milk Of Magnesia 30 Ml Oral.Susp) 30 ml PO DAILY PRN PRN Reason: Constipation Nicotine (Nicotine 21 Mg Patch.Td24) 21 mg TRANSDERMA DAILY [facility] Last Admin: 05/15/25 10:22 Dose: Not Given Nicotine Polacrilex (Nicotine Polacrilex 2 Mg Gum) 4 mg BUCCAL Q2H PRN PRN Reason: Nicotine Cravings Olanzapine (Olanzapine Odt 10 Mg Tab.Rapdis) 10 mg TRANSLINGU Q6H PRN PRN Reason: agitation Last Admin: 05/15/25 03:53 Dose: 10 mg Omeprazole (Omeprazole 20 Mg Capsule.) 20 mg PO DAILY@0630 [facility] Last Admin: 05/15/25 05:52 Dose: 20 mg Risperidone (Risperidone 2 Mg Tablet) 2 mg PO TID [facility] Thiamine HCl (Thiamine Hcl 100 Mg Tablet) 100 mg PO DAILY [facility] Last Admin: 05/15/25 10:20 Dose: 100 mg Trazodone HCl (Trazodone Hcl 50 Mg Tablet) 150 mg PO BEDTIME [facility] Last Admin: 05/14/25 20:26 Dose: 150 mg Allergies Allergies Allergy/AdvReac Type Severity Reaction Status Date / Time acetaminophen Allergy Unknown PANADOL = Verified 04/26/25 02:41 ACETAMINOPHEN SHELLFISH Allergy Mild PATIENT Uncoded 04/26/25 02:41 REPORTS BURNING SENSATION THROUGHOUT OPIATES Allergy Unknown BECAME Uncoded 04/26/25 02:41 ADDICTED PANADOL Allergy Unknown UNKNOWN Uncoded 04/26/25 02:41 Assessment & Plan Assessment & Plan (1) Schizoaffective disorder: Qualifiers: Schizoaffective disorder type: unspecified Qualified Code(s): F25.9 - Schizoaffective disorder, unspecified Status: Acute Code(s): F25.9 - Schizoaffective disorder, unspecified (2) Intellectual delay: Status: Acute Code(s): F81.9 - Developmental disorder of scholastic skills, unspecified (3) Major neurocognitive disorder: Status: Acute Code(s): F03.90 - Unspecified dementia, unspecified severity, without behavioral disturbance, psychotic disturbance, mood disturbance, and anxiety Plan Patient is a 60 year old male with hx of schizoaffective d/o and intellectual delay who was brought to [facility] via ambulance from home due to his family reporting patient has been aggressive and noncompliant with medication Plan: 12B 5 minute safety checks continue home mediations obtain collateral encourage groups discharge planning 04/28: Active on unit, social with Lao speaking peers. medication compliant. store receiving clerk present for assessment. disorganized. Answers questions inappropriately at times. flight of ideas. Stating his brother in law is a multiple times, however unable to explain how that was relevant to the conversation. Overheard making animal noises. Pt reports seeing blood on the cevallos and auditory hallucinations of airplane sounds . denies SI/HI. Per nursing, slept 7 hours last night. Transferred to Geriatric unit for continued care. 04/29 pt not oriented to situation, nor month nor year, which is baseline for him. He is overly friendly with poor boundaries at times. No aggression. taking medications as prescribed. filed for involuntary commitment. 05/01 - pt agitated but seeking IM medications- got good response- will repeat 05/02 response to ims was actually limited nursing report to 45min and provider last night reviewed chart and found depakote helpful in past- and has started reloading- I added 250mg er am dose to help thru day today- and prn haldol prn valium low dose - 05/03 started on depakote over the weekend. insisting on leaving thinking he has to go to work. 05/04 will switch depakote ER to DR 750mg po BID. will schedule olanzapine 5mg po TID. may need to add second mood stabilizer. 05/05 continue tx. 05/06 increase olanzapine to 10mg po TID, will continue risperidone for now as well. 05/07 depakote level 78. ammonia wnl. on two scheduled antipsychotics but continues to present with paranoid delusions, intrusive and more agitated. 05/08: Continue current regimen and plans 05/09: Continue current regimen and plans 05/10 will add carbamazepine, as pt continues to present as intrusive, paranoid. 05/11 continue current tx. before making other changes. 05/12 continue tx. 05/13 continues with fregoli and paranoid delusions. very fearful about being on the unit because he thinks he is going to be killed. Pt having EPS side effects from antipsychotics- will d/c olanzapine scheduled which will leave as PRN, D/C haldol due to EPS. increase cogentin 1mg po BID. continue risperidone 3mg po TID. Continue depakote 750mg po BID, add carbamazepine 200mg po BID (may switch depakote to carbamazepine as he used to be on this medication and seemed to have worked better). 05/14 decrease risperidone to 2mg po TID, don't think higher doses have increase therapeutic effect. he does need more time with the medications. continue valium 2mg po TID, carbamazepine and depakote. 05/15 much less sedation, no drooling, gait much improved. He is slightly calmer, less paranoid. although continues to be afraid of staying here becuse he thinks he is going to be killed. taking medications. social with Lao speaking peers. Reason for continued inpatient stay Substantial Risk for: inability to function Time Spent With Patient Time: Total time managing care of this patient today ____ minutes.
[2025-05-15 20:00] VITALS: BP 122/63; PULSE 112; RESP 18; TEMP 36.6; O2SAT 99
[2025-05-16] MEDS: Ferrous Sulfate 324 MG TABLET.DR PO (07:59)
[2025-05-16 08:00] VITALS: BP 128/73; PULSE 87; RESP 18; TEMP 36.7; O2SAT 98
[2025-05-16] MEDS: Aspirin Enteric Coated 81 MG TABLET.DR PO (08:00)
--- NOTE | 2025-05-16 16:38 | P.PNPSI_ITS ---
Subjective Subjective Date of Service: 05/16/25 Reason For Visit: Crisis Subjective Notes: Section 8 Interim History: Pt slept through the night. He has been visible on the unit. he continues to present with paranoid ideas but less intensity. He continues to report that he is not going to stay here because he is being killed. slightly calmer demeanor. Review of Systems Review of Systems Yes all other systems are reviewed and are negative and Unobtainable due to mental status Mental Status Exam Mental Status Exam Narrative: Appearance: wearing hospital gown,in NAD Behavior: friendly and cooperative Speech: clear, regular rate/rhythm/volume, spontaneous TP: goal oriented- wanting to go home TC: wanting to go Mood: I'm leaving! Affect: somewhat irritable, persistent about leaving, despite being told he is not discharging today SI: denies HI: denies VH/AH:no overt Delusions: some paranoid delusions, but also ideas that he is and works. fregoli delusions. Insight/judgment: limited x 2. Memory/cog: alert, oriented to place, not month nor year, nor situation. Diagnostics Vital Signs (24Hr): Vital Signs - 24 hr 05/15/25 20:00 05/16/25 08:00 05/16/25 08:00 Temperature 97.9 F 98.1 F Pulse Rate 112 H 87 Respiratory Rate 18 18 Blood Pressure 122/63 128/73 128/73 Pulse Oximetry 99 98 Oxygen Delivery Method Room Air Room Air BMI result Body Mass Index 27.8 Labs 05/13/25 17:27 05/13/25 17:27 Medications Medications Current Medications Al Hydroxide/Mg Hydroxide (Magnesium Hydrox/Alum Hydrox 30 Ml Oral.Susp) 30 ml PO Q6H PRN PRN Reason: Heartburn/Nausea Last Admin: 04/29/25 21:29 Dose: 30 ml Albuterol Sulfate (Albuterol Sulfate 90 Mcg 8 Gm Inhaler) 2 puff INHALE Q4H PRN PRN Reason: Wheezing Amlodipine Besylate (Amlodipine Besylate 2.5 Mg Tablet) 2.5 mg PO DAILY KAREN; Protocol Last Admin: 05/16/25 08:00 Dose: 2.5 mg Artificial Tears (Artificial Tears 15 Ml Drops) 2 drop EYE-BOTH Q4H PRN PRN Reason: Dry Eyes Last Admin: 05/09/25 15:53 Dose: 2 drop Aspirin (Aspirin Enteric Coated 81 Mg Tablet.) 81 mg PO DAILY [facility] Last Admin: 05/16/25 08:00 Dose: 81 mg Atorvastatin Calcium (Atorvastatin Calcium 40 Mg Tablet) 40 mg PO BEDTIME [facility] Last Admin: 05/15/25 20:14 Dose: 40 mg Benztropine Mesylate (Benztropine Mesylate 0.5 Mg Tablet) 0.5 mg PO TID [facility] Last Admin: 05/16/25 15:07 Dose: 0.5 mg Carbamazepine (Carbamazepine 200 Mg Tablet) 200 mg PO BID [facility] Last Admin: 05/16/25 08:00 Dose: 200 mg Clotrimazole (Clotrimazole 1 % Cream 15 Gm Tube) 1 appl TOPICAL BID [facility]; Protocol Last Admin: 05/16/25 07:59 Dose: 1 appl Diazepam (Diazepam 2 Mg Tablet) 2 mg PO TID [facility] Last Admin: 05/16/25 15:07 Dose: 2 mg Divalproex Sodium (Divalproex Sodium 500 Mg Tablet.) 500 mg PO BID [facility] Last Admin: 05/16/25 07:59 Dose: 500 mg Ferrous Sulfate (Ferrous Sulfate 324 Mg Tablet.) 324 mg PO DAILY [facility] Last Admin: 05/16/25 07:59 Dose: 324 mg Folic Acid (Folic Acid 1 Mg Tablet) 1 mg PO DAILY [facility] Last Admin: 05/16/25 08:01 Dose: 1 mg Ibuprofen (Ibuprofen 600 Mg Tablet) 600 mg PO Q6H PRN PRN Reason: moderate,pain Last Admin: 05/15/25 21:45 Dose: 600 mg Magnesium Hydroxide (Milk Of Magnesia 30 Ml Oral.Susp) 30 ml PO DAILY PRN PRN Reason: Constipation Nicotine (Nicotine 21 Mg Patch.Td24) 21 mg TRANSDERMA DAILY [facility] Last Admin: 05/16/25 08:03 Dose: Not Given Nicotine Polacrilex (Nicotine Polacrilex 2 Mg Gum) 4 mg BUCCAL Q2H PRN PRN Reason: Nicotine Cravings Olanzapine (Olanzapine Odt 10 Mg Tab.Rapdis) 10 mg TRANSLINGU Q6H PRN PRN Reason: agitation Last Admin: 05/15/25 21:45 Dose: 10 mg Omeprazole (Omeprazole 20 Mg Capsule.) 20 mg PO DAILY@0630 [facility] Last Admin: 05/16/25 06:08 Dose: 20 mg Risperidone (Risperidone 2 Mg Tablet) 2 mg PO TID [facility] Last Admin: 05/16/25 15:07 Dose: 2 mg Thiamine HCl (Thiamine Hcl 100 Mg Tablet) 100 mg PO DAILY [facility] Last Admin: 05/16/25 07:59 Dose: 100 mg Trazodone HCl (Trazodone Hcl 50 Mg Tablet) 150 mg PO BEDTIME [facility] Last Admin: 05/15/25 20:15 Dose: 150 mg Allergies Allergies Allergy/AdvReac Type Severity Reaction Status Date / Time acetaminophen Allergy Unknown PANADOL = Verified 04/26/25 02:41 ACETAMINOPHEN SHELLFISH Allergy Mild PATIENT Uncoded 04/26/25 02:41 REPORTS BURNING SENSATION THROUGHOUT OPIATES Allergy Unknown BECAME Uncoded 04/26/25 02:41 ADDICTED PANADOL Allergy Unknown UNKNOWN Uncoded 04/26/25 02:41 Assessment & Plan Assessment & Plan (1) Schizoaffective disorder: Qualifiers: Schizoaffective disorder type: unspecified Qualified Code(s): F25.9 - Schizoaffective disorder, unspecified Status: Acute Code(s): F25.9 - Schizoaffective disorder, unspecified (2) Intellectual delay: Status: Acute Code(s): F81.9 - Developmental disorder of scholastic skills, unspecified (3) Major neurocognitive disorder: Status: Acute Code(s): F03.90 - Unspecified dementia, unspecified severity, without behavioral disturbance, psychotic disturbance, mood disturbance, and anxiety Plan Patient is a 60 year old male with hx of schizoaffective d/o and intellectual delay who was brought to [facility] via ambulance from home due to his family reporting patient has been aggressive and noncompliant with medication Plan: 12B 5 minute safety checks continue home mediations obtain collateral encourage groups discharge planning 04/28: Active on unit, social with Azerbaijani speaking peers. medication compliant. 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 disorganized. Answers questions inappropriately at times. flight of ideas. Stating his brother in law is a multiple times, however unable to explain how that was relevant to the conversation. Overheard making animal noises. Pt reports seeing blood on the cevallos and auditory hallucinations of airplane sounds . denies SI/HI. Per nursing, slept 7 hours last night. Transferred to Geriatric unit for continued care. 04/29 pt not oriented to situation, nor month nor year, which is baseline for him. He is overly friendly with poor boundaries at times. No aggression. taking medications as prescribed. filed for involuntary commitment. 05/01 - pt agitated but seeking IM medications- got good response- will repeat 05/02 response to ims was actually limited nursing report to 45min and provider last night reviewed chart and found depakote helpful in past- and has started reloading- I added 250mg er am dose to help thru day today- and prn haldol prn valium low dose - 05/03 started on depakote over the weekend. insisting on leaving thinking he has to go to work. 05/04 will switch depakote ER to DR 750mg po BID. will schedule olanzapine 5mg po TID. may need to add second mood stabilizer. 05/05 continue tx. 05/06 increase olanzapine to 10mg po TID, will continue risperidone for now as well. 05/07 depakote level 78. ammonia wnl. on two scheduled antipsychotics but continues to present with paranoid delusions, intrusive and more agitated. 05/08: Continue current regimen and plans 05/09: Continue current regimen and plans 05/10 will add carbamazepine, as pt continues to present as intrusive, paranoid. 05/11 continue current tx. before making other changes. 05/12 continue tx. 05/13 continues with fregoli and paranoid delusions. very fearful about being on the unit because he thinks he is going to be killed. Pt having EPS side effects from antipsychotics- will d/c olanzapine scheduled which will leave as PRN, D/C haldol due to EPS. increase cogentin 1mg po BID. continue risperidone 3mg po TID. Continue depakote 750mg po BID, add carbamazepine 200mg po BID (may switch depakote to carbamazepine as he used to be on this medication and seemed to have worked better). 05/14 decrease risperidone to 2mg po TID, don't think higher doses have increase therapeutic benefits and instead causing significant side effects. he does need more time with the medications. continue valium 2mg po TID, carbamazepine and depakote. 05/15 much less sedation, no drooling, gait much improved. He is slightly calmer, less paranoid. although continues to be afraid of staying here becuse he thinks he is going to be killed. taking medications. social with Azerbaijani speaking peers. 05/16 continue tx. Reason for continued inpatient stay Substantial Risk for: inability to function Time Spent With Patient Time: Total time managing care of this patient today ____ minutes.
[2025-05-17 08:00] VITALS: BP 118/71; PULSE 97; RESP 16; O2SAT 98
[2025-05-17] MEDS: Ferrous Sulfate 324 MG TABLET.DR PO (08:36)
[2025-05-17] MEDS: Aspirin Enteric Coated 81 MG TABLET.DR PO (08:36)
--- NOTE | 2025-05-17 11:11 | HO.PSYCHPN ---
Subjective Subjective Date of Service: 05/17/25 Reason For Visit: Crisis Subjective Notes: Section 8 Interim History: Pt slept through the night. He presents as less intrusive less intense paranoid delusions but continues to report that he is being harmed at night and can't stay in the hospital. He is taking medications as prescribed. No aggression towards others. Medication Compliance: Yes Review of Systems Review of Systems Yes all other systems are reviewed and are negative and Unobtainable due to mental status Mental Status Exam Mental Status Exam Narrative: Appearance: wearing hospital gown,in NAD Behavior: friendly and cooperative Speech: clear, regular rate/rhythm/volume, spontaneous TP: goal oriented- wanting to go home TC: wanting to go Mood: I'm leaving! Affect: somewhat irritable, persistent about leaving, despite being told he is not discharging today SI: denies HI: denies VH/AH:no overt Delusions: some paranoid delusions, but also ideas that he is and works. fregoli delusions. Insight/judgment: limited x 2. Memory/cog: alert, oriented to place, not month nor year, nor situation. Diagnostics Vital Signs (24Hr): Vital Signs - 24 hr 05/17/25 08:00 Pulse Rate 97 Respiratory Rate 16 Blood Pressure 118/71 Pulse Oximetry 98 Oxygen Delivery Method Room Air BMI result Body Mass Index 27.8 Labs 05/13/25 17:27 05/13/25 17:27 Medications Medications Current Medications Al Hydroxide/Mg Hydroxide (Magnesium Hydrox/Alum Hydrox 30 Ml Oral.Susp) 30 ml PO Q6H PRN PRN Reason: Heartburn/Nausea Last Admin: 04/29/25 21:29 Dose: 30 ml Albuterol Sulfate (Albuterol Sulfate 90 Mcg 8 Gm Inhaler) 2 puff INHALE Q4H PRN PRN Reason: Wheezing Amlodipine Besylate (Amlodipine Besylate 2.5 Mg Tablet) 2.5 mg PO DAILY KAREN; Protocol Last Admin: 05/17/25 08:36 Dose: 2.5 mg Artificial Tears (Artificial Tears 15 Ml Drops) 2 drop EYE-BOTH Q4H PRN PRN Reason: Dry Eyes Last Admin: 05/09/25 15:53 Dose: 2 drop Aspirin (Aspirin Enteric Coated 81 Mg Tablet.) 81 mg PO DAILY [facility] Last Admin: 05/17/25 08:36 Dose: 81 mg Atorvastatin Calcium (Atorvastatin Calcium 40 Mg Tablet) 40 mg PO BEDTIME REPLACED BY [facility] Last Admin: 05/16/25 21:26 Dose: 40 mg Benztropine Mesylate (Benztropine Mesylate 0.5 Mg Tablet) 0.5 mg PO TID REPLACED BY [facility] Last Admin: 05/17/25 08:36 Dose: 0.5 mg Carbamazepine (Carbamazepine 200 Mg Tablet) 200 mg PO BID REPLACED BY [facility] Last Admin: 05/17/25 08:36 Dose: 200 mg Clotrimazole (Clotrimazole 1 % Cream 15 Gm Tube) 1 appl TOPICAL BID REPLACED BY [facility]; Protocol Last Admin: 05/17/25 08:37 Dose: Not Given Diazepam (Diazepam 2 Mg Tablet) 2 mg PO TID REPLACED BY [facility] Last Admin: 05/17/25 08:36 Dose: 2 mg Divalproex Sodium (Divalproex Sodium 500 Mg Tablet.) 500 mg PO BID REPLACED BY [facility] Last Admin: 05/17/25 08:37 Dose: 500 mg Ferrous Sulfate (Ferrous Sulfate 324 Mg Tablet.) 324 mg PO DAILY REPLACED BY [facility] Last Admin: 05/17/25 08:36 Dose: 324 mg Folic Acid (Folic Acid 1 Mg Tablet) 1 mg PO DAILY REPLACED BY [facility] Last Admin: 05/17/25 08:36 Dose: 1 mg Ibuprofen (Ibuprofen 600 Mg Tablet) 600 mg PO Q6H PRN PRN Reason: moderate,pain Last Admin: 05/15/25 21:45 Dose: 600 mg Magnesium Hydroxide (Milk Of Magnesia 30 Ml Oral.Susp) 30 ml PO DAILY PRN PRN Reason: Constipation Nicotine (Nicotine 21 Mg Patch.Td24) 21 mg TRANSDERMA DAILY REPLACED BY [facility] Last Admin: 05/17/25 08:37 Dose: Not Given Nicotine Polacrilex (Nicotine Polacrilex 2 Mg Gum) 4 mg BUCCAL Q2H PRN PRN Reason: Nicotine Cravings Olanzapine (Olanzapine Odt 10 Mg Tab.Rapdis) 10 mg TRANSLINGU Q6H PRN PRN Reason: agitation Last Admin: 05/15/25 21:45 Dose: 10 mg Omeprazole (Omeprazole 20 Mg Capsule.) 20 mg PO DAILY@30 REPLACED BY [facility] Last Admin: 05/17/25 05:22 Dose: 20 mg Risperidone (Risperidone 2 Mg Tablet) 2 mg PO TID REPLACED BY [facility] Last Admin: 05/17/25 08:36 Dose: 2 mg Thiamine HCl (Thiamine Hcl 100 Mg Tablet) 100 mg PO DAILY REPLACED BY [facility] Last Admin: 05/17/25 08:36 Dose: 100 mg Trazodone HCl (Trazodone Hcl 50 Mg Tablet) 150 mg PO BEDTIME REPLACED BY [facility] Last Admin: 05/16/25 21:26 Dose: 150 mg Allergies Allergies Allergy/AdvReac Type Severity Reaction Status Date / Time acetaminophen Allergy Unknown PANADOL = Verified 04/26/25 02:41 ACETAMINOPHEN SHELLFISH Allergy Mild PATIENT Uncoded 04/26/25 02:41 REPORTS BURNING SENSATION THROUGHOUT OPIATES Allergy Unknown BECAME Uncoded 04/26/25 02:41 ADDICTED PANADOL Allergy Unknown UNKNOWN Uncoded 04/26/25 02:41 Assessment & Plan Assessment & Plan (1) Schizoaffective disorder: Qualifiers: Schizoaffective disorder type: unspecified Qualified Code(s): F25.9 - Schizoaffective disorder, unspecified Status: Acute Code(s): F25.9 - Schizoaffective disorder, unspecified (2) Intellectual delay: Status: Acute Code(s): F81.9 - Developmental disorder of scholastic skills, unspecified (3) Major neurocognitive disorder: Status: Acute Code(s): F03.90 - Unspecified dementia, unspecified severity, without behavioral disturbance, psychotic disturbance, mood disturbance, and anxiety Plan Patient is a 60 year old male with hx of schizoaffective d/o and intellectual delay who was brought to [facility] via ambulance from home due to his family reporting patient has been aggressive and noncompliant with medication Plan: 12B 5 minute safety checks continue home mediations obtain collateral encourage groups discharge planning 04/28: Active on unit, social with German speaking peers. medication compliant. 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 disorganized. Answers questions inappropriately at times. flight of ideas. Stating his brother in law is a multiple times, however unable to explain how that was relevant to the conversation. Overheard making animal noises. Pt reports seeing blood on the cevallos and auditory hallucinations of airplane sounds . denies SI/HI. Per nursing, slept 7 hours last night. Transferred to Geriatric unit for continued care. 04/29 pt not oriented to situation, nor month nor year, which is baseline for him. He is overly friendly with poor boundaries at times. No aggression. taking medications as prescribed. filed for involuntary commitment. 05/01 - pt agitated but seeking IM medications- got good response- will repeat 05/02 response to ims was actually limited nursing report to 45min and provider last night reviewed chart and found depakote helpful in past- and has started reloading- I added 250mg er am dose to help thru day today- and prn haldol prn valium low dose - 05/03 started on depakote over the weekend. insisting on leaving thinking he has to go to work. 05/04 will switch depakote ER to DR 750mg po BID. will schedule olanzapine 5mg po TID. may need to add second mood stabilizer. 05/05 continue tx. 05/06 increase olanzapine to 10mg po TID, will continue risperidone for now as well. 05/07 depakote level 78. ammonia wnl. on two scheduled antipsychotics but continues to present with paranoid delusions, intrusive and more agitated. 05/08: Continue current regimen and plans 05/09: Continue current regimen and plans 05/10 will add carbamazepine, as pt continues to present as intrusive, paranoid. 05/11 continue current tx. before making other changes. 05/12 continue tx. 05/13 continues with fregoli and paranoid delusions. very fearful about being on the unit because he thinks he is going to be killed. Pt having EPS side effects from antipsychotics- will d/c olanzapine scheduled which will leave as PRN, D/C haldol due to EPS. increase cogentin 1mg po BID. continue risperidone 3mg po TID. Continue depakote 750mg po BID, add carbamazepine 200mg po BID (may switch depakote to carbamazepine as he used to be on this medication and seemed to have worked better). 05/14 decrease risperidone to 2mg po TID, don't think higher doses have increase therapeutic benefits and instead causing significant side effects. he does need more time with the medications. continue valium 2mg po TID, carbamazepine and depakote. 05/15 much less sedation, no drooling, gait much improved. He is slightly calmer, less paranoid. although continues to be afraid of staying here becuse he thinks he is going to be killed. taking medications. social with German speaking peers. 05/16 continue tx. 05/17 less intrusive but continues to have paranoid delusions. continue current medications. Reason for continued inpatient stay Substantial Risk for: inability to function Time Spent With Patient Time: Total time managing care of this patient today ____ minutes.
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
[2025-05-17 20:00] VITALS: RESP 18; TEMP 36.1; O2SAT 98
[2025-05-18] MEDS: OLANZapine ODT 10 MG TAB.RAPDIS TRANSLINGU (00:59)
[2025-05-18] MEDS: Magnesium Hydrox/Alum Hydrox 30 ML ORAL.SUSP PO (02:38)
[2025-05-18 07:55] VITALS: BP 109/61; PULSE 100; RESP 18; TEMP 36.4; O2SAT 98
[2025-05-18] MEDS: Aspirin Enteric Coated 81 MG TABLET.DR PO (08:26)
[2025-05-18] MEDS: Ferrous Sulfate 324 MG TABLET.DR PO (08:26)
--- NOTE | 2025-05-18 18:56 | P.PNPSI_ITS ---
Subjective Subjective Date of Service: 05/18/25 Reason For Visit: Crisis Interim History: Pt slept through the night. He presents as less intrusive less intense paranoid delusions but continues to report that he is being harmed at night and can't stay in the hospital. He is taking medications as prescribed. No aggression towards others. Review of Systems Review of Systems Yes all other systems are reviewed and are negative and Unobtainable due to mental status Mental Status Exam Mental Status Exam Narrative: Appearance: wearing hospital gown,in NAD Behavior: friendly and cooperative Speech: clear, regular rate/rhythm/volume, spontaneous TP: goal oriented- wanting to go home TC: wanting to go Mood: I'm leaving! Affect: somewhat irritable, persistent about leaving, despite being told he is not discharging today SI: denies HI: denies VH/AH:no overt Delusions: some paranoid delusions, but also ideas that he is and works. fregoli delusions. Insight/judgment: limited x 2. Memory/cog: alert, oriented to place, not month nor year, nor situation. Diagnostics Vital Signs (24Hr): Vital Signs - 24 hr 05/17/25 20:00 05/18/25 07:55 Temperature 96.9 F 97.5 F Pulse Rate 100 Respiratory Rate 18 18 Blood Pressure 109/61 Pulse Oximetry 98 98 Oxygen Delivery Method Room Air Room Air BMI result Body Mass Index 27.8 Labs 05/13/25 17:27 05/13/25 17:27 Medications Medications Current Medications Al Hydroxide/Mg Hydroxide (Magnesium Hydrox/Alum Hydrox 30 Ml Oral.Susp) 30 ml PO Q6H PRN PRN Reason: Heartburn/Nausea Last Admin: 05/18/25 02:38 Dose: 30 ml Albuterol Sulfate (Albuterol Sulfate 90 Mcg 8 Gm Inhaler) 2 puff INHALE Q4H PRN PRN Reason: Wheezing Amlodipine Besylate (Amlodipine Besylate 2.5 Mg Tablet) 2.5 mg PO DAILY [facility]; Protocol Last Admin: 05/18/25 08:26 Dose: 2.5 mg Artificial Tears (Artificial Tears 15 Ml Drops) 2 drop EYE-BOTH Q4H PRN PRN Reason: Dry Eyes Last Admin: 05/09/25 15:53 Dose: 2 drop Aspirin (Aspirin Enteric Coated 81 Mg Tablet.) 81 mg PO DAILY [facility] Last Admin: 05/18/25 08:26 Dose: 81 mg Atorvastatin Calcium (Atorvastatin Calcium 40 Mg Tablet) 40 mg PO BEDTIME [facility] Last Admin: 05/17/25 20:30 Dose: 40 mg Benztropine Mesylate (Benztropine Mesylate 0.5 Mg Tablet) 0.5 mg PO TID [facility] Last Admin: 05/18/25 14:48 Dose: 0.5 mg Carbamazepine (Carbamazepine 200 Mg Tablet) 200 mg PO BID [facility] Last Admin: 05/18/25 08:26 Dose: 200 mg Clotrimazole (Clotrimazole 1 % Cream 15 Gm Tube) 1 appl TOPICAL BID [facility]; Protocol Last Admin: 05/18/25 08:28 Dose: 1 appl Diazepam (Diazepam 2 Mg Tablet) 2 mg PO TID [facility] Last Admin: 05/18/25 14:48 Dose: 2 mg Divalproex Sodium (Divalproex Sodium 500 Mg Tablet.) 500 mg PO BID [facility] Last Admin: 05/18/25 08:27 Dose: 500 mg Ferrous Sulfate (Ferrous Sulfate 324 Mg Tablet.) 324 mg PO DAILY [facility] Last Admin: 05/18/25 08:26 Dose: 324 mg Folic Acid (Folic Acid 1 Mg Tablet) 1 mg PO DAILY [facility] Last Admin: 05/18/25 08:27 Dose: 1 mg Ibuprofen (Ibuprofen 600 Mg Tablet) 600 mg PO Q6H PRN PRN Reason: moderate,pain Last Admin: 05/15/25 21:45 Dose: 600 mg Magnesium Hydroxide (Milk Of Magnesia 30 Ml Oral.Susp) 30 ml PO DAILY PRN PRN Reason: Constipation Nicotine (Nicotine 21 Mg Patch.Td24) 21 mg TRANSDERMA DAILY [facility] Last Admin: 05/18/25 08:28 Dose: Not Given Nicotine Polacrilex (Nicotine Polacrilex 2 Mg Gum) 4 mg BUCCAL Q2H PRN PRN Reason: Nicotine Cravings Olanzapine (Olanzapine Odt 10 Mg Tab.Rapdis) 10 mg TRANSLINGU Q6H PRN PRN Reason: agitation Last Admin: 05/18/25 00:59 Dose: 10 mg Omeprazole (Omeprazole 20 Mg Capsule.) 20 mg PO DAILY@0630 [facility] Last Admin: 05/18/25 05:53 Dose: 20 mg Risperidone (Risperidone 2 Mg Tablet) 2 mg PO TID [facility] Last Admin: 05/18/25 14:48 Dose: 2 mg Thiamine HCl (Thiamine Hcl 100 Mg Tablet) 100 mg PO DAILY [facility] Last Admin: 05/18/25 08:26 Dose: 100 mg Trazodone HCl (Trazodone Hcl 50 Mg Tablet) 150 mg PO BEDTIME [facility] Last Admin: 05/17/25 20:31 Dose: 150 mg Allergies Allergies Allergy/AdvReac Type Severity Reaction Status Date / Time acetaminophen Allergy Unknown PANADOL = Verified 04/26/25 02:41 ACETAMINOPHEN SHELLFISH Allergy Mild PATIENT Uncoded 04/26/25 02:41 REPORTS BURNING SENSATION THROUGHOUT OPIATES Allergy Unknown BECAME Uncoded 04/26/25 02:41 ADDICTED PANADOL Allergy Unknown UNKNOWN Uncoded 04/26/25 02:41 Assessment & Plan Assessment & Plan (1) Schizoaffective disorder: Qualifiers: Schizoaffective disorder type: unspecified Qualified Code(s): F25.9 - Schizoaffective disorder, unspecified Status: Acute Code(s): F25.9 - Schizoaffective disorder, unspecified (2) Intellectual delay: Status: Acute Code(s): F81.9 - Developmental disorder of scholastic skills, unspecified (3) Major neurocognitive disorder: Status: Acute Code(s): F03.90 - Unspecified dementia, unspecified severity, without behavioral disturbance, psychotic disturbance, mood disturbance, and anxiety Plan Patient is a 60 year old male with hx of schizoaffective d/o and intellectual delay who was brought to [facility] via ambulance from home due to his family reporting patient has been aggressive and noncompliant with medication Plan: 12B 5 minute safety checks continue home mediations obtain collateral encourage groups discharge planning 04/28: Active on unit, social with Mosotho speaking peers. medication compliant. aerial photograph interpreter present for assessment. disorganized. Answers questions inappropriately at times. flight of ideas. Stating his brother in law is a multiple times, however unable to explain how that was relevant to the conversation. Overheard making animal noises. Pt reports seeing blood on the cevallos and auditory hallucinations of airplane sounds . denies SI/HI. Per nursing, slept 7 hours last night. Transferred to Geriatric unit for continued care. 04/29 pt not oriented to situation, nor month nor year, which is baseline for him. He is overly friendly with poor boundaries at times. No aggression. taking medications as prescribed. filed for involuntary commitment. 05/01 - pt agitated but seeking IM medications- got good response- will repeat 05/02 response to ims was actually limited nursing report to 45min and provider last night reviewed chart and found depakote helpful in past- and has started reloading- I added 250mg er am dose to help thru day today- and prn haldol prn valium low dose - 05/03 started on depakote over the weekend. insisting on leaving thinking he has to go to work. 05/04 will switch depakote ER to DR 750mg po BID. will schedule olanzapine 5mg po TID. may need to add second mood stabilizer. 05/05 continue tx. 05/06 increase olanzapine to 10mg po TID, will continue risperidone for now as well. 05/07 depakote level 78. ammonia wnl. on two scheduled antipsychotics but continues to present with paranoid delusions, intrusive and more agitated. 05/08: Continue current regimen and plans 05/09: Continue current regimen and plans 05/10 will add carbamazepine, as pt continues to present as intrusive, paranoid. 05/11 continue current tx. before making other changes. 05/12 continue tx. 05/13 continues with fregoli and paranoid delusions. very fearful about being on the unit because he thinks he is going to be killed. Pt having EPS side effects from antipsychotics- will d/c olanzapine scheduled which will leave as PRN, D/C haldol due to EPS. increase cogentin 1mg po BID. continue risperidone 3mg po TID. Continue depakote 750mg po BID, add carbamazepine 200mg po BID (may switch depakote to carbamazepine as he used to be on this medication and seemed to have worked better). 05/14 decrease risperidone to 2mg po TID, don't think higher doses have increase therapeutic benefits and instead causing significant side effects. he does need more time with the medications. continue valium 2mg po TID, carbamazepine and depakote. 05/15 much less sedation, no drooling, gait much improved. He is slightly calmer, less paranoid. although continues to be afraid of staying here becuse he thinks he is going to be killed. taking medications. social with Mosotho speaking peers. 05/16 continue tx. 05/18 continue tx. Reason for continued inpatient stay Substantial Risk for: inability to function Time Spent With Patient Time: Total time managing care of this patient today ____ minutes.
[2025-05-18 20:00] VITALS: BP 131/72; PULSE 95; RESP 18; TEMP 36.1; O2SAT 100
[2025-05-18] MEDS: Albuterol Sulfate 90 MCG 8 GM INHALER 2 PUFF INHALE (20:12)
[2025-05-18] MEDS: Clotrimazole 1 % Cream 15 GM TUBE 1 APPL TOPICAL (21:10)
[2025-05-19 07:55] VITALS: BP 120/62; PULSE 84; RESP 18; TEMP 36.8; O2SAT 99
[2025-05-19] MEDS: Aspirin Enteric Coated 81 MG TABLET.DR PO (08:11)
[2025-05-19] MEDS: Ferrous Sulfate 324 MG TABLET.DR PO (08:12)
[2025-05-19] MEDS: Clotrimazole 1 % Cream 15 GM TUBE 1 APPL TOPICAL ×2 (08:16→20:52)
--- NOTE | 2025-05-19 16:07 | P.PNPSI_ITS ---
Subjective Subjective Date of Service: 05/19/25 Reason For Visit: Crisis Subjective Notes: Conditional Voluntary Interim History: Medical record and nursing notes reviewed; case discussed during rounds with team, and met with patient for supportive therapy/psychoeducation, as well as medication management. Patient was medication compliant and staff for 8 hours last night. He is visible in common area most of the day, very friendly in wanted to shaking him to everyone that he meets, he tried to shake this provider hands at least 4 times this morning. Reports he seeing blood on the wall all the time especially at night, with current experience, but not scare by that when asked if he experienced visual hallucination. Denied hearing voices. Deny SI/SIB/Hi/AV. Reports good appetite. He can be very intrusive over friendly and need constant redirection but much improved this morning. Denies any side effects from medication. Hyper focused on I Wanna go home tomorrow to see my mom and my . He is aware that we are going to get some labs work done in the morning. Medication Compliance: Yes Side effects from medications: No Attending Groups: Intermittent Review of Systems Acute medical concerns: No Medical Review of Systems: unchanged Review of Systems Review of Systems Constitutional: Denies fatigue and Denies fever(s) Cardiovascular: Denies chest pain and Denies dyspnea Respiratory: Denies dyspnea Gastrointestinal: Denies abdominal pain Psychiatric: denies suicidal ideation Endocrine: Denies fatigue Yes all other systems are reviewed and are negative Mental Status Exam Mental Status Exam Narrative: Appearance: Wearing his own clothes with some stains from food on the shirt. Behavior: friendly and cooperative. Can be intrusive. Speech: clear, regular rate/rhythm/volume, spontaneous TP: goal oriented- wanting to go home TC: WNL. Mood: good Affect: Constricted, congruent SI: denies HI: denies VH/AH:no overt Delusions: Not sure his delusional but stated that he has a and mom he wants to see Insight/judgment: poor but improve Memory/cog: alert, oriented but not understand situation that he is not living tomorrow. . Diagnostics Vital Signs (24Hr): Vital Signs - 24 hr 05/18/25 20:00 05/19/25 07:55 Temperature 96.9 F 98.2 F Pulse Rate 95 84 Respiratory Rate 18 18 Blood Pressure 131/72 120/62 Pulse Oximetry 100 99 Oxygen Delivery Method Room Air Room Air BMI result Body Mass Index 27.8 Labs 05/13/25 17:27 05/13/25 17:27 Medications Medications Current Medications Al Hydroxide/Mg Hydroxide (Magnesium Hydrox/Alum Hydrox 30 Ml Oral.Susp) 30 ml PO Q6H PRN PRN Reason: Heartburn/Nausea Last Admin: 05/18/25 02:38 Dose: 30 ml Albuterol Sulfate (Albuterol Sulfate 90 Mcg 8 Gm Inhaler) 2 puff INHALE Q4H PRN PRN Reason: Wheezing Last Admin: 05/18/25 20:12 Dose: 2 puff Amlodipine Besylate (Amlodipine Besylate 2.5 Mg Tablet) 2.5 mg PO DAILY [facility]; Protocol Last Admin: 05/19/25 08:11 Dose: 2.5 mg Artificial Tears (Artificial Tears 15 Ml Drops) 2 drop EYE-BOTH Q4H PRN PRN Reason: Dry Eyes Last Admin: 05/09/25 15:53 Dose: 2 drop Aspirin (Aspirin Enteric Coated 81 Mg Tablet.) 81 mg PO DAILY [facility] Last Admin: 05/19/25 08:11 Dose: 81 mg Atorvastatin Calcium (Atorvastatin Calcium 40 Mg Tablet) 40 mg PO BEDTIME [facility] Last Admin: 05/18/25 20:05 Dose: 40 mg Benztropine Mesylate (Benztropine Mesylate 0.5 Mg Tablet) 0.5 mg PO TID [facility] Last Admin: 05/19/25 14:38 Dose: 0.5 mg Carbamazepine (Carbamazepine 200 Mg Tablet) 200 mg PO BID [facility] Last Admin: 05/19/25 08:11 Dose: 200 mg Clotrimazole (Clotrimazole 1 % Cream 15 Gm Tube) 1 appl TOPICAL BID [facility]; Protocol Last Admin: 05/19/25 08:16 Dose: 1 appl Diazepam (Diazepam 2 Mg Tablet) 2 mg PO TID [facility] Last Admin: 05/19/25 14:38 Dose: 2 mg Divalproex Sodium (Divalproex Sodium 500 Mg Tablet.) 500 mg PO BID [facility] Last Admin: 05/19/25 08:11 Dose: 500 mg Ferrous Sulfate (Ferrous Sulfate 324 Mg Tablet.) 324 mg PO DAILY [facility] Last Admin: 05/19/25 08:12 Dose: 324 mg Folic Acid (Folic Acid 1 Mg Tablet) 1 mg PO DAILY [facility] Last Admin: 05/19/25 08:12 Dose: 1 mg Ibuprofen (Ibuprofen 600 Mg Tablet) 600 mg PO Q6H PRN PRN Reason: moderate,pain Last Admin: 05/15/25 21:45 Dose: 600 mg Magnesium Hydroxide (Milk Of Magnesia 30 Ml Oral.Susp) 30 ml PO DAILY PRN PRN Reason: Constipation Nicotine Polacrilex (Nicotine Polacrilex 2 Mg Gum) 4 mg BUCCAL Q2H PRN PRN Reason: Nicotine Cravings Olanzapine (Olanzapine Odt 10 Mg Tab.Rapdis) 10 mg TRANSLINGU Q6H PRN PRN Reason: agitation Last Admin: 05/18/25 00:59 Dose: 10 mg Omeprazole (Omeprazole 20 Mg Capsule.Dr) 20 mg PO DAILY@0630 [facility] Last Admin: 05/19/25 06:50 Dose: 20 mg Risperidone (Risperidone 2 Mg Tablet) 2 mg PO TID [facility] Last Admin: 05/19/25 14:38 Dose: 2 mg Thiamine HCl (Thiamine Hcl 100 Mg Tablet) 100 mg PO DAILY [facility] Last Admin: 05/19/25 08:12 Dose: 100 mg Trazodone HCl (Trazodone Hcl 50 Mg Tablet) 150 mg PO BEDTIME [facility] Last Admin: 05/18/25 20:05 Dose: 150 mg Allergies Allergies Allergy/AdvReac Type Severity Reaction Status Date / Time acetaminophen Allergy Unknown PANADOL = Verified 04/26/25 02:41 ACETAMINOPHEN SHELLFISH Allergy Mild PATIENT Uncoded 04/26/25 02:41 REPORTS BURNING SENSATION THROUGHOUT OPIATES Allergy Unknown BECAME Uncoded 04/26/25 02:41 ADDICTED PANADOL Allergy Unknown UNKNOWN Uncoded 04/26/25 02:41 Assessment & Plan Assessment & Plan (1) Schizoaffective disorder: Qualifiers: Schizoaffective disorder type: unspecified Qualified Code(s): F25.9 - Schizoaffective disorder, unspecified Status: Acute Code(s): F25.9 - Schizoaffective disorder, unspecified (2) Intellectual delay: Status: Acute Code(s): F81.9 - Developmental disorder of scholastic skills, unspecified (3) Major neurocognitive disorder: Status: Acute Code(s): F03.90 - Unspecified dementia, unspecified severity, without behavioral disturbance, psychotic disturbance, mood disturbance, and anxiety Plan Patient is a 60 year old male with hx of schizoaffective d/o and intellectual delay who was brought to [facility] via ambulance from home due to his family reporting patient has been aggressive and noncompliant with medication Plan: 12B 5 minute safety checks continue home mediations obtain collateral encourage groups discharge planning 04/28: Active on unit, social with Nam[place]ian speaking peers. medication compliant. clinical scientist present for assessment. disorganized. Answers questions inappropriately at times. flight of ideas. Stating his brother in law is a multiple times, however unable to explain how that was relevant to the conversation. Overheard making animal noises. Pt reports seeing blood on the cevallos and auditory hallucinations of airplane sounds . denies SI/HI. Per nursing, slept 7 hours last night. Transferred to Geriatric unit for continued care. 04/29 pt not oriented to situation, nor month nor year, which is baseline for him. He is overly friendly with poor boundaries at times. No aggression. taking medications as prescribed. filed for involuntary commitment. 05/01 - pt agitated but seeking IM medications- got good response- will repeat 05/02 response to ims was actually limited nursing report to 45min and provider last night reviewed chart and found depakote helpful in past- and has started reloading- I added 250mg er am dose to help thru day today- and prn haldol prn valium low dose - 05/03 started on depakote over the weekend. insisting on leaving thinking he has to go to work. 05/04 will switch depakote ER to DR 750mg po BID. will schedule olanzapine 5mg po TID. may need to add second mood stabilizer. 05/05 continue tx. 05/06 increase olanzapine to 10mg po TID, will continue risperidone for now as well. 05/07 depakote level 78. ammonia wnl. on two scheduled antipsychotics but continues to present with paranoid delusions, intrusive and more agitated. 05/08: Continue current regimen and plans 05/09: Continue current regimen and plans 05/10 will add carbamazepine, as pt continues to present as intrusive, paranoid. 05/11 continue current tx. before making other changes. 05/12 continue tx. 05/13 continues with fregoli and paranoid delusions. very fearful about being on the unit because he thinks he is going to be killed. Pt having EPS side effects from antipsychotics- will d/c olanzapine scheduled which will leave as PRN, D/C haldol due to EPS. increase cogentin 1mg po BID. continue risperidone 3mg po TID. Continue depakote 750mg po BID, add carbamazepine 200mg po BID (may switch depakote to carbamazepine as he used to be on this medication and seemed to have worked better). 05/14 decrease risperidone to 2mg po TID, don't think higher doses have increase therapeutic benefits and instead causing significant side effects. he does need more time with the medications. continue valium 2mg po TID, carbamazepine and depakote. 05/15 much less sedation, no drooling, gait much improved. He is slightly calmer, less paranoid. although continues to be afraid of staying here becuse he thinks he is going to be killed. taking medications. social with Namibian speaking peers. 05/16 continue tx. 05/18 continue tx. 05/19/25: Sleep and appetite has been good, less intrusive, over friend lives at times. No SI/SIB/HI/AVH. Hyper focused on leaving to see his mom and his . Reports visual hallucination seeing blood on the war as every day but increase at nighttime. I ordered Depakote level. Tegretol level, and prolactin level for tomorrow. Renew diazepam. Discontinue nicotine patch as he has has not used it since admitted here. Patient educated on: medication risk/benefits and therapeutic strategies Informed Consent: further education needed Reason for continued inpatient stay Substantial Risk for: med/psych decompensation Time Spent With Patient Time: Total time managing care of this patient today ____ minutes.
[2025-05-19] MEDS: Albuterol Sulfate 90 MCG 8 GM INHALER 2 PUFF INHALE (19:49)
[2025-05-19] MEDS: Artificial Tears 15 ML DROPS 2 DROP EYE-BOTH (19:50)
[2025-05-19 20:00] VITALS: BP 118/68; PULSE 97; RESP 18; TEMP 36.7; O2SAT 98
--- NOTE | 2025-05-20 | ECG_ITS ---
Test Reason : cp Blood Pressure : */* mmHG Vent. Rate : 100 BPM Atrial Rate : 100 BPM P-R Int : 138 ms QRS Dur : 88 ms QT Int : 334 ms P-R-T Axes : 61 58 61 degrees QTcB Int : 430 ms Normal sinus rhythm Possible Lateral infarct , age undetermined Possible Inferior infarct (cited on or before 21-Apr-2020) Abnormal ECG When compared with ECG of 03-May-2025 10:32, QT has shortened Referred By: Georgette Estrella Electronically Signed By: LUIS ANTONIO VAUGHN MD
[2025-05-20 09:01] VITALS: BP 111/65; PULSE 95; RESP 18; TEMP 36.4; O2SAT 98
[2025-05-20] MEDS: Aspirin Enteric Coated 81 MG TABLET.DR PO (09:03)
[2025-05-20] MEDS: Ferrous Sulfate 324 MG TABLET.DR PO (09:03)
[2025-05-20 09:49] VITALS: BMI 28.7
[2025-05-20] MEDS: Clotrimazole 1 % Cream 15 GM TUBE 1 APPL TOPICAL ×2 (10:28→19:59)
[2025-05-20 10:38] LABS: Carbamazepine Tegretol 7.4 mcg/mL (5.0-12.0)
[2025-05-20 13:37] LABS: MANUAL DIFF FLAG NO
[2025-05-20 13:39] LABS: Hematocrit 38.0 % (42.0-52.0); Hemoglobin 12.6 g/dl (14.0-18.0); Imm Gran Abs Auto 0.10 X10*3/uL (0.00-0.03); Imm Gran Pct Auto 1.3 % (0.0-0.4); Lymphocytes Absolute Auto 1.3 X10*3/uL (1.2-4.9); Mean Corpuscular HGB Conc 33.2 g/dl (31.0-36.0); Mean Corpuscular Hemoglobin 27.9 pg (27.0-33.0); Mean Corpuscular Volume 84.1 fL (80.0-98.0); NRBC Abs Auto 0.000 X10*3/uL (0.0-0.012); NRBC Pct Auto 0.0 /100WBC (0.0-0.2); Platelet Count 230 X10*3/uL (160-400); Red Blood Count 4.52 X10*6/uL (4.60-5.80); White Blood Count 7.7 X10*3/uL (4.8-10.8)
[2025-05-20 13:53] LABS: Alanine Aminotransferase 29 U/L (0-40); Albumin Level 4.0 g/dL (3.5-5.0); Alkaline Phosphatase 88 U/L (39-117); Anion Gap 13 (12-20); Aspartate Amino Transferase 29 U/L (5-37); Blood Urea Nitrogen 13 mg/dL (9-16); Calcium 8.4 mg/dL (8.4-10.2); Carbon Dioxide 24 mmol/L (22-29); Chloride 104 mmol/L (96-108); Creatinine Clr Calc Pharmacy 106.3; Estimated Glomerular Filt Rate > 60; Potassium 4.0 mmol/L (3.3-5.1); Sodium 137 mmol/L (135-145); Total Protein 7.2 g/dL (6.5-8.0)
[2025-05-20 14:00] LABS: Troponin-I High Sensitivity 18.6 ng/L (<3.5-35.0)
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
[2025-05-20 20:00] VITALS: BP 114/70; PULSE 92; RESP 17; TEMP 36.6; O2SAT 98
--- NOTE | 2025-05-21 08:14 | P.PNPSI_ITS ---
Subjective Subjective Date of Service: 05/21/25 Reason For Visit: Crisis Interim History: met with patient. Discussed with nursing. Has been calm today. Responds well to medications. Pleasant with health science writer. Reported he had no problems. Pleasant when we talked about this being independent stay/21 of May. Sleep has been okay. Eating and drinking. No medication concerns Medication Compliance: Yes Side effects from medications: No Attending Groups: No Review of Systems Acute medical concerns: No Review of Systems Review of Systems unremarkable Mental Status Exam Mental Status Exam Narrative: Appearance: Wearing his own clothes with fair ADLs. Behavior: friendly and cooperative. Can be intrusive. Speech: clear, regular rate/rhythm/volume, spontaneous TP: goal oriented- wanting to go home TC: WNL. Mood: good Affect: Constricted, congruent SI: denies HI: denies VH/AH:no overt Delusions: nothing overt Insight/judgment: poor but improve Memory/cog: alert, oriented but limited understanding of hospital admission and situation. Patient Appearance: Disheveled Patient Orientation: Person Level of Consciousness: Awake and Restless Patient Behavior: Guarded, Restless, Swearing, Impulsive and Poor Eye Contact Behavior Comments: but also shakes my hand- and can do small brief interactions- Mood Description: Angry Affect Description: Labile Patient Cognition Impaired: Yes Ability to Follow Directions: Poor Speech Pattern: Poor Articulation Diagnostics Vital Signs (24Hr): Vital Signs - 24 hr 05/20/25 09:01 05/20/25 20:00 Temperature 97.5 F 97.8 F Pulse Rate 95 92 Respiratory Rate 18 17 Blood Pressure 111/65 114/70 Pulse Oximetry 98 98 Oxygen Delivery Method Room Air Room Air BMI result Body Mass Index 28.7 Labs 05/20/25 13:34 05/20/25 13:34 Labs: Laboratory Results - last 48 hr 05/20/25 05/20/25 09:44 13:34 WBC 7.7 RBC 4.52 L Hgb 12.6 L Hct 38.0 L MCV 84.1 MCH 27.9 MCHC 33.2 RDW 16.1 H Plt Count 230 MPV 9.3 L Immature Gran % (Auto) 1.3 H Neut % (Auto) 67.2 Lymph % (Auto) 16.3 L [place] % (Auto) 12.3 H Eos % (Auto) 2.5 Baso % (Auto) 0.4 Lymph # (Auto) 1.3 [place] # (Auto) 0.9 Eos # (Auto) 0.2 Baso # (Auto) 0.0 Abs Immat Gran (auto) 0.10 H Absolute Neuts (auto) 5.2 Absolute Nucleated RBC 0.000 Nucleated RBC % (auto) 0.0 Sodium 137 Potassium 4.0 Chloride 104 Carbon Dioxide 24 Anion Gap 13 BUN 13 Creatinine 0.68 Estim Creat Clear Calc 106.3 Estimated GFR > 60 Random Glucose 124 H Calcium 8.4 D Total Bilirubin 0.1 AST 29 ALT 29 Alkaline Phosphatase 88 Troponin I High Sens 18.6 Total Protein 7.2 Albumin 4.0 Prolactin 13.1 Valproic Acid 49.1 L Carbamazepine 7.4 Medications Medications Current Medications Al Hydroxide/Mg Hydroxide (Magnesium Hydrox/Alum Hydrox 30 Ml Oral.Susp) 30 ml PO Q6H PRN PRN Reason: Heartburn/Nausea Last Admin: 05/18/25 02:38 Dose: 30 ml Albuterol Sulfate (Albuterol Sulfate 90 Mcg 8 Gm Inhaler) 2 puff INHALE Q4H PRN PRN Reason: Wheezing Last Admin: 05/19/25 19:49 Dose: 2 puff Amlodipine Besylate (Amlodipine Besylate 2.5 Mg Tablet) 2.5 mg PO DAILY [facility]; Protocol Last Admin: 05/20/25 09:03 Dose: 2.5 mg Artificial Tears (Artificial Tears 15 Ml Drops) 2 drop EYE-BOTH Q4H PRN PRN Reason: Dry Eyes Last Admin: 05/19/25 19:50 Dose: 2 drop Aspirin (Aspirin Enteric Coated 81 Mg Tablet.) 81 mg PO DAILY [facility] Last Admin: 05/20/25 09:03 Dose: 81 mg Atorvastatin Calcium (Atorvastatin Calcium 40 Mg Tablet) 40 mg PO BEDTIME [facility]EN Last Admin: 05/20/25 19:59 Dose: 40 mg Benztropine Mesylate (Benztropine Mesylate 0.5 Mg Tablet) 0.5 mg PO TID KAREN Last Admin: 05/20/25 19:59 Dose: 0.5 mg Carbamazepine (Carbamazepine 200 Mg Tablet) 200 mg PO BID [facility]EN Last Admin: 05/20/25 19:59 Dose: 200 mg Clotrimazole (Clotrimazole 1 % Cream 15 Gm Tube) 1 appl TOPICAL BID [facility]; Protocol Last Admin: 05/20/25 19:59 Dose: 1 appl Diazepam (Diazepam 2 Mg Tablet) 2 mg PO TID [facility] Last Admin: 05/20/25 20:00 Dose: 2 mg Divalproex Sodium (Divalproex Sodium 500 Mg Tablet.) 500 mg PO BID [facility] Last Admin: 05/20/25 19:59 Dose: 500 mg Ferrous Sulfate (Ferrous Sulfate 324 Mg Tablet.) 324 mg PO DAILY [facility] Last Admin: 05/20/25 09:03 Dose: 324 mg Folic Acid (Folic Acid 1 Mg Tablet) 1 mg PO DAILY [facility] Last Admin: 05/20/25 09:03 Dose: 1 mg Ibuprofen (Ibuprofen 600 Mg Tablet) 600 mg PO Q6H PRN PRN Reason: moderate,pain Last Admin: 05/19/25 19:44 Dose: 600 mg Magnesium Hydroxide (Milk Of Magnesia 30 Ml Oral.Susp) 30 ml PO DAILY PRN PRN Reason: Constipation Nicotine Polacrilex (Nicotine Polacrilex 2 Mg Gum) 4 mg BUCCAL Q2H PRN PRN Reason: Nicotine Cravings Olanzapine (Olanzapine Odt 10 Mg Tab.Rapdis) 10 mg TRANSLINGU Q6H PRN PRN Reason: agitation Last Admin: 05/18/25 00:59 Dose: 10 mg Omeprazole (Omeprazole 20 Mg Capsule.) 20 mg PO DAILY@0630 [facility] Last Admin: 05/21/25 06:01 Dose: 20 mg Risperidone (Risperidone 2 Mg Tablet) 2 mg PO TID [facility] Last Admin: 05/20/25 19:59 Dose: 2 mg Thiamine HCl (Thiamine Hcl 100 Mg Tablet) 100 mg PO DAILY [facility] Last Admin: 05/20/25 09:03 Dose: 100 mg Trazodone HCl (Trazodone Hcl 50 Mg Tablet) 150 mg PO BEDTIME [facility] Last Admin: 05/20/25 20:00 Dose: 150 mg Allergies Allergies Allergy/AdvReac Type Severity Reaction Status Date / Time acetaminophen Allergy Unknown PANADOL = Verified 04/26/25 02:41 ACETAMINOPHEN SHELLFISH Allergy Mild PATIENT Uncoded 04/26/25 02:41 REPORTS BURNING SENSATION THROUGHOUT OPIATES Allergy Unknown BECAME Uncoded 04/26/25 02:41 ADDICTED PANADOL Allergy Unknown UNKNOWN Uncoded 04/26/25 02:41 Assessment & Plan Assessment & Plan (1) Schizoaffective disorder: Qualifiers: Schizoaffective disorder type: unspecified Qualified Code(s): F25.9 - Schizoaffective disorder, unspecified Status: Acute Code(s): F25.9 - Schizoaffective disorder, unspecified (2) Intellectual delay: Status: Acute Code(s): F81.9 - Developmental disorder of scholastic skills, unspecified (3) Major neurocognitive disorder: Status: Acute Code(s): F03.90 - Unspecified dementia, unspecified severity, without behavioral disturbance, psychotic disturbance, mood disturbance, and anxiety Plan Patient is a 60 year old male with hx of schizoaffective d/o and intellectual delay who was brought to [facility] via ambulance from home due to his family reporting patient has been aggressive and noncompliant with medication Plan: 12B 5 minute safety checks continue home mediations obtain collateral encourage groups discharge planning 04/28: Active on unit, social with Haitian speaking peers. medication compliant. snowmobile mechanic present for assessment. disorganized. Answers questions inappropriately at times. flight of ideas. Stating his brother in law is a multiple times, however unable to explain how that was relevant to the conversation. Overheard making animal noises. Pt reports seeing blood on the cevallos and auditory hallucinations of airplane sounds . denies SI/HI. Per nursing, slept 7 hours last night. Transferred to Geriatric unit for continued care. 04/29 pt not oriented to situation, nor month nor year, which is baseline for him. He is overly friendly with poor boundaries at times. No aggression. taking medications as prescribed. filed for involuntary commitment. 05/01 - pt agitated but seeking IM medications- got good response- will repeat 05/02 response to ims was actually limited nursing report to 45min and provider last night reviewed chart and found depakote helpful in past- and has started reloading- I added 250mg er am dose to help thru day today- and prn haldol prn valium low dose - 05/03 started on depakote over the weekend. insisting on leaving thinking he has to go to work. 05/04 will switch depakote ER to DR 750mg po BID. will schedule olanzapine 5mg po TID. may need to add second mood stabilizer. 05/05 continue tx. 05/06 increase olanzapine to 10mg po TID, will continue risperidone for now as well. 05/07 depakote level 78. ammonia wnl. on two scheduled antipsychotics but continues to present with paranoid delusions, intrusive and more agitated. 05/08: Continue current regimen and plans 05/09: Continue current regimen and plans 05/10 will add carbamazepine, as pt continues to present as intrusive, paranoid. 05/11 continue current tx. before making other changes. 05/12 continue tx. 05/13 continues with fregoli and paranoid delusions. very fearful about being on the unit because he thinks he is going to be killed. Pt having EPS side effects from antipsychotics- will d/c olanzapine scheduled which will leave as PRN, D/C haldol due to EPS. increase cogentin 1mg po BID. continue risperidone 3mg po TID. Continue depakote 750mg po BID, add carbamazepine 200mg po BID (may switch depakote to carbamazepine as he used to be on this medication and seemed to have worked better). 05/14 decrease risperidone to 2mg po TID, don't think higher doses have increase therapeutic benefits and instead causing significant side effects. he does need more time with the medications. continue valium 2mg po TID, carbamazepine and depakote. 05/15 much less sedation, no drooling, gait much improved. He is slightly calmer, less paranoid. although continues to be afraid of staying here becuse he thinks he is going to be killed. taking medications. social with Haitian speaking peers. 05/16 continue tx. 05/18 continue tx. 05/19/25: Sleep and appetite has been good, less intrusive, over friend lives at times. No SI/SIB/HI/AVH. Hyper focused on leaving to see his mom and his . Reports visual hallucination seeing blood on the war as every day but increase at nighttime. I ordered Depakote level. Tegretol level, and prolactin level for tomorrow. Renew diazepam. Discontinue nicotine patch as he has has not used it since admitted here. Reason for continued inpatient stay Substantial Risk for: rapid decompensation Time Spent With Patient Time: Total time managing care of this patient today ____ minutes.
[2025-05-21 08:33] VITALS: BP 122/62; PULSE 89; RESP 16; TEMP 36.3; O2SAT 98
[2025-05-21] MEDS: Aspirin Enteric Coated 81 MG TABLET.DR PO (08:35)
[2025-05-21] MEDS: Ferrous Sulfate 324 MG TABLET.DR PO (08:35)
[2025-05-21] MEDS: Clotrimazole 1 % Cream 15 GM TUBE 1 APPL TOPICAL ×2 (14:29→21:07)
[2025-05-21] MEDS: Artificial Tears 15 ML DROPS 2 DROP EYE-BOTH (16:07)
[2025-05-21 20:00] VITALS: BP 101/55; PULSE 80; RESP 16; TEMP 36.6; O2SAT 97
--- NOTE | 2025-05-22 07:26 | P.PNPSI_ITS ---
Subjective Subjective Date of Service: 05/22/25 Reason For Visit: Crisis Interim History: met with patient. Discussed with nursing. Has been calm. In milieu with patients and no issues. Responds well to medications. 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 Reported he had no problems. Asking about discharge and easily redirected to primary team to discuss same after wekeend. Sleep has been okay. Eating and drinking. No medication concerns Medication Compliance: Yes Side effects from medications: No Attending Groups: Intermittent Review of Systems Acute medical concerns: No Review of Systems Review of Systems unremarkable Mental Status Exam Mental Status Exam Narrative: Appearance: Wearing his own clothes with fair ADLs. Behavior: friendly and cooperative. Can be intrusive. Speech: clear, regular rate/rhythm/volume, spontaneous TP: goal oriented- wanting to go home TC: WNL. Mood: good Affect: Constricted, congruent SI: denies HI: denies VH/AH:no overt Delusions: nothing overt Insight/judgment: limited Memory/cog: alert, oriented but limited understanding of hospital admission and situation. Diagnostics Vital Signs (24Hr): Vital Signs - 24 hr 05/21/25 08:33 05/21/25 20:00 Temperature 97.4 F 97.8 F Pulse Rate 89 80 Respiratory Rate 16 16 Blood Pressure 122/62 101/55 L Pulse Oximetry 98 97 Oxygen Delivery Method Room Air Room Air BMI result Body Mass Index 28.7 Labs 05/20/25 13:34 05/20/25 13:34 Labs: Laboratory Results - last 48 hr 05/20/25 05/20/25 09:44 13:34 WBC 7.7 RBC 4.52 L Hgb 12.6 L Hct 38.0 L MCV 84.1 MCH 27.9 MCHC 33.2 RDW 16.1 H Plt Count 230 MPV 9.3 L Immature Gran % (Auto) 1.3 H Neut % (Auto) 67.2 Lymph % (Auto) 16.3 L [place] % (Auto) 12.3 H Eos % (Auto) 2.5 Baso % (Auto) 0.4 Lymph # (Auto) 1.3 [place] # (Auto) 0.9 Eos # (Auto) 0.2 Baso # (Auto) 0.0 Abs Immat Gran (auto) 0.10 H Absolute Neuts (auto) 5.2 Absolute Nucleated RBC 0.000 Nucleated RBC % (auto) 0.0 Sodium 137 Potassium 4.0 Chloride 104 Carbon Dioxide 24 Anion Gap 13 BUN 13 Creatinine 0.68 Estim Creat Clear Calc 106.3 Estimated GFR > 60 Random Glucose 124 H Calcium 8.4 D Total Bilirubin 0.1 AST 29 ALT 29 Alkaline Phosphatase 88 Troponin I High Sens 18.6 Total Protein 7.2 Albumin 4.0 Prolactin 13.1 Valproic Acid 49.1 L Carbamazepine 7.4 Medications Medications Current Medications Al Hydroxide/Mg Hydroxide (Magnesium Hydrox/Alum Hydrox 30 Ml Oral.Susp) 30 ml PO Q6H PRN PRN Reason: Heartburn/Nausea Last Admin: 05/18/25 02:38 Dose: 30 ml Albuterol Sulfate (Albuterol Sulfate 90 Mcg 8 Gm Inhaler) 2 puff INHALE Q4H PRN PRN Reason: Wheezing Last Admin: 05/19/25 19:49 Dose: 2 puff Amlodipine Besylate (Amlodipine Besylate 2.5 Mg Tablet) 2.5 mg PO DAILY [facility]; Protocol Last Admin: 05/21/25 08:35 Dose: 2.5 mg Artificial Tears (Artificial Tears 15 Ml Drops) 2 drop EYE-BOTH Q4H PRN PRN Reason: Dry Eyes Last Admin: 05/21/25 16:07 Dose: 2 drop Aspirin (Aspirin Enteric Coated 81 Mg Tablet.) 81 mg PO DAILY [facility] Last Admin: 05/21/25 08:35 Dose: 81 mg Atorvastatin Calcium (Atorvastatin Calcium 40 Mg Tablet) 40 mg PO BEDTIME [facility] Last Admin: 05/21/25 21:02 Dose: 40 mg Benztropine Mesylate (Benztropine Mesylate 0.5 Mg Tablet) 0.5 mg PO TID [facility] Last Admin: 05/21/25 21:03 Dose: 0.5 mg Carbamazepine (Carbamazepine 200 Mg Tablet) 200 mg PO BID [facility] Last Admin: 05/21/25 21:02 Dose: 200 mg Clotrimazole (Clotrimazole 1 % Cream 15 Gm Tube) 1 appl TOPICAL BID [facility]; Protocol Last Admin: 05/21/25 21:07 Dose: 1 appl Diazepam (Diazepam 2 Mg Tablet) 2 mg PO TID [facility] Last Admin: 05/21/25 21:03 Dose: 2 mg Divalproex Sodium (Divalproex Sodium 500 Mg Tablet.) 500 mg PO BID [facility] Last Admin: 05/21/25 21:02 Dose: 500 mg Ferrous Sulfate (Ferrous Sulfate 324 Mg Tablet.) 324 mg PO DAILY [facility] Last Admin: 05/21/25 08:35 Dose: 324 mg Folic Acid (Folic Acid 1 Mg Tablet) 1 mg PO DAILY [facility] Last Admin: 05/21/25 08:35 Dose: 1 mg Ibuprofen (Ibuprofen 600 Mg Tablet) 600 mg PO Q6H PRN PRN Reason: moderate,pain Last Admin: 05/21/25 21:02 Dose: 600 mg Magnesium Hydroxide (Milk Of Magnesia 30 Ml Oral.Susp) 30 ml PO DAILY PRN PRN Reason: Constipation Nicotine Polacrilex (Nicotine Polacrilex 2 Mg Gum) 4 mg BUCCAL Q2H PRN PRN Reason: Nicotine Cravings Olanzapine (Olanzapine Odt 10 Mg Tab.Rapdis) 10 mg TRANSLINGU Q6H PRN PRN Reason: agitation Last Admin: 05/18/25 00:59 Dose: 10 mg Omeprazole (Omeprazole 20 Mg Capsule.) 20 mg PO DAILY@0630 [facility] Last Admin: 05/22/25 05:59 Dose: 20 mg Risperidone (Risperidone 2 Mg Tablet) 2 mg PO TID [facility] Last Admin: 05/21/25 21:03 Dose: 2 mg Thiamine HCl (Thiamine Hcl 100 Mg Tablet) 100 mg PO DAILY [facility] Last Admin: 05/21/25 08:35 Dose: 100 mg Trazodone HCl (Trazodone Hcl 50 Mg Tablet) 150 mg PO BEDTIME [facility] Last Admin: 05/21/25 21:02 Dose: 150 mg Allergies Allergies Allergy/AdvReac Type Severity Reaction Status Date / Time acetaminophen Allergy Unknown PANADOL = Verified 04/26/25 02:41 ACETAMINOPHEN SHELLFISH Allergy Mild PATIENT Uncoded 04/26/25 02:41 REPORTS BURNING SENSATION THROUGHOUT OPIATES Allergy Unknown BECAME Uncoded 04/26/25 02:41 ADDICTED PANADOL Allergy Unknown UNKNOWN Uncoded 04/26/25 02:41 Assessment & Plan Assessment & Plan (1) Schizoaffective disorder: Qualifiers: Schizoaffective disorder type: unspecified Qualified Code(s): F25.9 - Schizoaffective disorder, unspecified Status: Acute Code(s): F25.9 - Schizoaffective disorder, unspecified (2) Intellectual delay: Status: Acute Code(s): F81.9 - Developmental disorder of scholastic skills, unspecified (3) Major neurocognitive disorder: Status: Acute Code(s): F03.90 - Unspecified dementia, unspecified severity, without behavioral disturbance, psychotic disturbance, mood disturbance, and anxiety Plan Patient is a 60 year old male with hx of schizoaffective d/o and intellectual delay who was brought to [facility] via ambulance from home due to his family reporting patient has been aggressive and noncompliant with medication Plan: 12B 5 minute safety checks continue home mediations obtain collateral encourage groups discharge planning 04/28: Active on unit, social with [place] Islander speaking peers. medication compliant. 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 disorganized. Answers questions inappropriately at times. flight of ideas. Stating his brother in law is a multiple times, however unable to explain how that was relevant to the conversation. Overheard making animal noises. Pt reports seeing blood on the [place] and auditory hallucinations of airplane sounds . denies SI/HI. Per nursing, slept 7 hours last night. Transferred to Geriatric unit for continued care. 04/29 pt not oriented to situation, nor month nor year, which is baseline for him. He is overly friendly with poor boundaries at times. No aggression. taking medications as prescribed. filed for involuntary commitment. 05/01 - pt agitated but seeking IM medications- got good response- will repeat 05/02 response to ims was actually limited nursing report to 45min and provider last night reviewed chart and found depakote helpful in past- and has started reloading- I added 250mg er am dose to help thru day today- and prn haldol prn valium low dose - 05/03 started on depakote over the weekend. insisting on leaving thinking he has to go to work. 05/04 will switch depakote ER to DR 750mg po BID. will schedule olanzapine 5mg po TID. may need to add second mood stabilizer. 05/05 continue tx. 05/06 increase olanzapine to 10mg po TID, will continue risperidone for now as well. 05/07 depakote level 78. ammonia wnl. on two scheduled antipsychotics but continues to present with paranoid delusions, intrusive and more agitated. 05/08: Continue current regimen and plans 05/09: Continue current regimen and plans 05/10 will add carbamazepine, as pt continues to present as intrusive, paranoid. 05/11 continue current tx. before making other changes. 05/12 continue tx. 05/13 continues with fregoli and paranoid delusions. very fearful about being on the unit because he thinks he is going to be killed. Pt having EPS side effects from antipsychotics- will d/c olanzapine scheduled which will leave as PRN, D/C haldol due to EPS. increase cogentin 1mg po BID. continue risperidone 3mg po TID. Continue depakote 750mg po BID, add carbamazepine 200mg po BID (may switch depakote to carbamazepine as he used to be on this medication and seemed to have worked better). 05/14 decrease risperidone to 2mg po TID, don't think higher doses have increase therapeutic benefits and instead causing significant side effects. he does need more time with the medications. continue valium 2mg po TID, carbamazepine and depakote. 05/15 much less sedation, no drooling, gait much improved. He is slightly calmer, less paranoid. although continues to be afraid of staying here becuse he thinks he is going to be killed. taking medications. social with [place] Islander speaking peers. 05/16 continue tx. 05/18 continue tx. 05/19/25: Sleep and appetite has been good, less intrusive, over friend lives at times. No SI/SIB/HI/AVH. Hyper focused on leaving to see his mom and his . Reports visual hallucination seeing blood on the war as every day but increase at nighttime. I ordered Depakote level. Tegretol level, and prolactin level for tomorrow. Renew diazepam. Discontinue nicotine patch as he has has not used it since admitted here. 05/22: no changes to primary team plan Reason for continued inpatient stay Substantial Risk for: rapid decompensation Time Spent With Patient Time: Total time managing care of this patient today ____ minutes.
[2025-05-22 08:05] LABS: Carbamazepine Tegretol 7.5 mcg/mL (5.0-12.0)
[2025-05-22 08:30] VITALS: BP 122/67; PULSE 85; RESP 18; TEMP 36.3; O2SAT 99
[2025-05-22] MEDS: Ferrous Sulfate 324 MG TABLET.DR PO (08:52)
[2025-05-22] MEDS: Aspirin Enteric Coated 81 MG TABLET.DR PO (08:53)
[2025-05-22] MEDS: Clotrimazole 1 % Cream 15 GM TUBE 1 APPL TOPICAL ×2 (11:43→20:21)
[2025-05-22 20:00] VITALS: BP 107/53; PULSE 71; RESP 16; TEMP 36.6; O2SAT 98
[2025-05-23 08:00] VITALS: BP 134/58; PULSE 79; RESP 18; TEMP 36.1; O2SAT 100
[2025-05-23] MEDS: Aspirin Enteric Coated 81 MG TABLET.DR PO (08:33)
[2025-05-23] MEDS: Ferrous Sulfate 324 MG TABLET.DR PO (08:35)
[2025-05-23] MEDS: Clotrimazole 1 % Cream 15 GM TUBE 1 APPL TOPICAL ×2 (09:38→20:54)
--- NOTE | 2025-05-23 11:00 | P.PNPSI_ITS ---
Subjective Subjective Date of Service: 05/23/25 Reason For Visit: Crisis Interim History: met with patient. Discussed with nursing. Has been calm. In milieu with patients and no issues. Responds well to medications. Pleasant with contract writer and denied issues. Sleep has been okay. Eating and drinking. No medication concerns Medication Compliance: Yes Side effects from medications: No Attending Groups: Intermittent Review of Systems Acute medical concerns: No Review of Systems Review of Systems unremarkable Mental Status Exam Mental Status Exam Narrative: Appearance: Wearing his own clothes with fair ADLs. Behavior: friendly and cooperative. Can be intrusive. Speech: clear, regular rate/rhythm/volume, spontaneous TP: goal oriented- wanting to go home TC: WNL. Mood: good Affect: Constricted, congruent SI: denies HI: denies VH/AH:no overt Delusions: nothing overt Insight/judgment: limited Memory/cog: alert, oriented but limited understanding of hospital admission and situation. Diagnostics Vital Signs (24Hr): Vital Signs - 24 hr 05/22/25 20:00 05/23/25 08:00 Temperature 97.8 F 97.0 F Pulse Rate 71 79 Respiratory Rate 16 18 Blood Pressure 107/53 L 134/58 L Pulse Oximetry 98 100 Oxygen Delivery Method Room Air Room Air BMI result Body Mass Index 28.7 Labs 05/20/25 13:34 05/20/25 13:34 Labs: Laboratory Results - last 48 hr 05/22/25 07:30 Valproic Acid 43.0 L Carbamazepine 7.5 Medications Medications Current Medications Al Hydroxide/Mg Hydroxide (Magnesium Hydrox/Alum Hydrox 30 Ml Oral.Susp) 30 ml PO Q6H PRN PRN Reason: Heartburn/Nausea Last Admin: 05/18/25 02:38 Dose: 30 ml Albuterol Sulfate (Albuterol Sulfate 90 Mcg 8 Gm Inhaler) 2 puff INHALE Q4H PRN PRN Reason: Wheezing Last Admin: 05/19/25 19:49 Dose: 2 puff Amlodipine Besylate (Amlodipine Besylate 2.5 Mg Tablet) 2.5 mg PO DAILY [facility]; Protocol Last Admin: 05/23/25 08:33 Dose: 2.5 mg Artificial Tears (Artificial Tears 15 Ml Drops) 2 drop EYE-BOTH Q4H PRN PRN Reason: Dry Eyes Last Admin: 05/21/25 16:07 Dose: 2 drop Aspirin (Aspirin Enteric Coated 81 Mg Tablet.) 81 mg PO DAILY [facility] Last Admin: 05/23/25 08:33 Dose: 81 mg Atorvastatin Calcium (Atorvastatin Calcium 40 Mg Tablet) 40 mg PO BEDTIME [facility] Last Admin: 05/22/25 20:17 Dose: 40 mg Benztropine Mesylate (Benztropine Mesylate 0.5 Mg Tablet) 0.5 mg PO TID [facility] Last Admin: 05/23/25 08:34 Dose: 0.5 mg Carbamazepine (Carbamazepine 200 Mg Tablet) 200 mg PO BID [facility] Last Admin: 05/23/25 08:33 Dose: 200 mg Clotrimazole (Clotrimazole 1 % Cream 15 Gm Tube) 1 appl TOPICAL BID [facility]; Protocol Last Admin: 05/23/25 09:38 Dose: 1 appl Diazepam (Diazepam 2 Mg Tablet) 2 mg PO TID [facility] Last Admin: 05/23/25 08:34 Dose: 2 mg Divalproex Sodium (Divalproex Sodium 500 Mg Tablet.) 500 mg PO BID [facility] Last Admin: 05/23/25 08:34 Dose: 500 mg Ferrous Sulfate (Ferrous Sulfate 324 Mg Tablet.) 324 mg PO DAILY [facility] Last Admin: 05/23/25 08:35 Dose: 324 mg Folic Acid (Folic Acid 1 Mg Tablet) 1 mg PO DAILY [facility] Last Admin: 05/23/25 08:34 Dose: 1 mg Ibuprofen (Ibuprofen 600 Mg Tablet) 600 mg PO Q6H PRN PRN Reason: moderate,pain Last Admin: 05/21/25 21:02 Dose: 600 mg Magnesium Hydroxide (Milk Of Magnesia 30 Ml Oral.Susp) 30 ml PO DAILY PRN PRN Reason: Constipation Nicotine Polacrilex (Nicotine Polacrilex 2 Mg Gum) 4 mg BUCCAL Q2H PRN PRN Reason: Nicotine Cravings Olanzapine (Olanzapine Odt 10 Mg Tab.Rapdis) 10 mg TRANSLINGU Q6H PRN PRN Reason: agitation Last Admin: 05/18/25 00:59 Dose: 10 mg Omeprazole (Omeprazole 20 Mg Capsule.) 20 mg PO DAILY@0630 [facility] Last Admin: 05/23/25 05:55 Dose: 20 mg Risperidone (Risperidone 2 Mg Tablet) 2 mg PO TID [facility] Last Admin: 05/23/25 08:34 Dose: 2 mg Thiamine HCl (Thiamine Hcl 100 Mg Tablet) 100 mg PO DAILY [facility] Last Admin: 05/23/25 08:34 Dose: 100 mg Trazodone HCl (Trazodone Hcl 50 Mg Tablet) 150 mg PO BEDTIME [facility] Last Admin: 05/22/25 20:17 Dose: 150 mg Allergies Allergies Allergy/AdvReac Type Severity Reaction Status Date / Time acetaminophen Allergy Unknown PANADOL = Verified 04/26/25 02:41 ACETAMINOPHEN SHELLFISH Allergy Mild PATIENT Uncoded 04/26/25 02:41 REPORTS BURNING SENSATION THROUGHOUT OPIATES Allergy Unknown BECAME Uncoded 04/26/25 02:41 ADDICTED PANADOL Allergy Unknown UNKNOWN Uncoded 04/26/25 02:41 Assessment & Plan Assessment & Plan (1) Schizoaffective disorder: Qualifiers: Schizoaffective disorder type: unspecified Qualified Code(s): F25.9 - Schizoaffective disorder, unspecified Status: Acute Code(s): F25.9 - Schizoaffective disorder, unspecified (2) Intellectual delay: Status: Acute Code(s): F81.9 - Developmental disorder of scholastic skills, unspecified (3) Major neurocognitive disorder: Status: Acute Code(s): F03.90 - Unspecified dementia, unspecified severity, without behavioral disturbance, psychotic disturbance, mood disturbance, and anxiety Plan Patient is a 60 year old male with hx of schizoaffective d/o and intellectual delay who was brought to [facility] via ambulance from home due to his family reporting patient has been aggressive and noncompliant with medication Plan: 12B 5 minute safety checks continue home mediations obtain collateral encourage groups discharge planning 04/28: Active on unit, social with Greek speaking peers. medication compliant. 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 disorganized. Answers questions inappropriately at times. flight of ideas. Stating his brother in law is a multiple times, however unable to explain how that was relevant to the conversation. Overheard making animal noises. Pt reports seeing blood on the cevallos and auditory hallucinations of airplane sounds . denies SI/HI. Per nursing, slept 7 hours last night. Transferred to Geriatric unit for continued care. 04/29 pt not oriented to situation, nor month nor year, which is baseline for him. He is overly friendly with poor boundaries at times. No aggression. taking medications as prescribed. filed for involuntary commitment. 05/01 - pt agitated but seeking IM medications- got good response- will repeat 05/02 response to ims was actually limited nursing report to 45min and provider last night reviewed chart and found depakote helpful in past- and has started reloading- I added 250mg er am dose to help thru day today- and prn haldol prn valium low dose - 05/03 started on depakote over the weekend. insisting on leaving thinking he has to go to work. 05/04 will switch depakote ER to DR 750mg po BID. will schedule olanzapine 5mg po TID. may need to add second mood stabilizer. 05/05 continue tx. 05/06 increase olanzapine to 10mg po TID, will continue risperidone for now as well. 05/07 depakote level 78. ammonia wnl. on two scheduled antipsychotics but continues to present with paranoid delusions, intrusive and more agitated. 05/08: Continue current regimen and plans 05/09: Continue current regimen and plans 05/10 will add carbamazepine, as pt continues to present as intrusive, paranoid. 05/11 continue current tx. before making other changes. 05/12 continue tx. 05/13 continues with fregoli and paranoid delusions. very fearful about being on the unit because he thinks he is going to be killed. Pt having EPS side effects from antipsychotics- will d/c olanzapine scheduled which will leave as PRN, D/C haldol due to EPS. increase cogentin 1mg po BID. continue risperidone 3mg po TID. Continue depakote 750mg po BID, add carbamazepine 200mg po BID (may switch depakote to carbamazepine as he used to be on this medication and seemed to have worked better). 05/14 decrease risperidone to 2mg po TID, don't think higher doses have increase therapeutic benefits and instead causing significant side effects. he does need more time with the medications. continue valium 2mg po TID, carbamazepine and depakote. 05/15 much less sedation, no drooling, gait much improved. He is slightly calmer, less paranoid. although continues to be afraid of staying here becuse he thinks he is going to be killed. taking medications. social with Greek speaking peers. 05/16 continue tx. 05/18 continue tx. 05/19/25: Sleep and appetite has been good, less intrusive, over friend lives at times. No SI/SIB/HI/AVH. Hyper focused on leaving to see his mom and his . Reports visual hallucination seeing blood on the war as every day but increase at nighttime. I ordered Depakote level. Tegretol level, and prolactin level for tomorrow. Renew diazepam. Discontinue nicotine patch as he has has not used it since admitted here. 05/22: no changes to primary team plan 05/23: no changes Reason for continued inpatient stay Substantial Risk for: rapid decompensation Time Spent With Patient Time: Total time managing care of this patient today ____ minutes.
[2025-05-23] MEDS: Artificial Tears 15 ML DROPS 2 DROP EYE-BOTH (14:16)
[2025-05-24 08:00] VITALS: BP 124/70; PULSE 74; RESP 14; TEMP 36.1; O2SAT 98
--- NOTE | 2025-05-24 08:49 | HO.PSYCHPN ---
Subjective Subjective Date of Service: 05/24/25 Reason For Visit: Crisis Subjective Notes: Section 8 Interim History: Pt slept through the night. He presents as much less paranoid and less suspicious. He does report wanting to go home but less paranoid ideas regarding thinking that he is going to be killed here. He is much less intrusive with peers. He is pleasant. He is able to be redirected. No SI/HI. Diagnostics Vital Signs (24Hr): BMI result Body Mass Index 28.7 Labs 05/20/25 13:34 05/20/25 13:34 Medications Medications Current Medications Al Hydroxide/Mg Hydroxide (Magnesium Hydrox/Alum Hydrox 30 Ml Oral.Susp) 30 ml PO Q6H PRN PRN Reason: Heartburn/Nausea Last Admin: 05/18/25 02:38 Dose: 30 ml Albuterol Sulfate (Albuterol Sulfate 90 Mcg 8 Gm Inhaler) 2 puff INHALE Q4H PRN PRN Reason: Wheezing Last Admin: 05/19/25 19:49 Dose: 2 puff Amlodipine Besylate (Amlodipine Besylate 2.5 Mg Tablet) 2.5 mg PO DAILY [facility]; Protocol Last Admin: 05/23/25 08:33 Dose: 2.5 mg Artificial Tears (Artificial Tears 15 Ml Drops) 2 drop EYE-BOTH Q4H PRN PRN Reason: Dry Eyes Last Admin: 05/23/25 14:16 Dose: 2 drop Aspirin (Aspirin Enteric Coated 81 Mg Tablet.Dr) 81 mg PO DAILY [facility] Last Admin: 05/23/25 08:33 Dose: 81 mg Atorvastatin Calcium (Atorvastatin Calcium 40 Mg Tablet) 40 mg PO BEDTIME [facility] Last Admin: 05/23/25 20:54 Dose: 40 mg Benztropine Mesylate (Benztropine Mesylate 0.5 Mg Tablet) 0.5 mg PO TID [facility] Last Admin: 05/23/25 20:54 Dose: 0.5 mg Carbamazepine (Carbamazepine 200 Mg Tablet) 200 mg PO BID [facility] Last Admin: 05/23/25 20:53 Dose: 200 mg Clotrimazole (Clotrimazole 1 % Cream 15 Gm Tube) 1 appl TOPICAL BID [facility]; Protocol Last Admin: 05/23/25 20:54 Dose: 1 appl Diazepam (Diazepam 2 Mg Tablet) 2 mg PO TID [facility] Last Admin: 05/23/25 20:54 Dose: 2 mg Divalproex Sodium (Divalproex Sodium 500 Mg Tablet.) 500 mg PO BID [facility] Last Admin: 05/23/25 20:54 Dose: 500 mg Ferrous Sulfate (Ferrous Sulfate 324 Mg Tablet.) 324 mg PO DAILY [facility] Last Admin: 05/23/25 08:35 Dose: 324 mg Folic Acid (Folic Acid 1 Mg Tablet) 1 mg PO DAILY [facility] Last Admin: 05/23/25 08:34 Dose: 1 mg Ibuprofen (Ibuprofen 600 Mg Tablet) 600 mg PO Q6H PRN PRN Reason: moderate,pain Last Admin: 05/21/25 21:02 Dose: 600 mg Magnesium Hydroxide (Milk Of Magnesia 30 Ml Oral.Susp) 30 ml PO DAILY PRN PRN Reason: Constipation Nicotine Polacrilex (Nicotine Polacrilex 2 Mg Gum) 4 mg BUCCAL Q2H PRN PRN Reason: Nicotine Cravings Olanzapine (Olanzapine Odt 10 Mg Tab.Rapdis) 10 mg TRANSLINGU Q6H PRN PRN Reason: agitation Last Admin: 05/18/25 00:59 Dose: 10 mg Omeprazole (Omeprazole 20 Mg Capsule.) 20 mg PO DAILY@0630 [facility] Last Admin: 05/24/25 05:53 Dose: 20 mg Risperidone (Risperidone 2 Mg Tablet) 2 mg PO TID [facility] Last Admin: 05/23/25 20:54 Dose: 2 mg Thiamine HCl (Thiamine Hcl 100 Mg Tablet) 100 mg PO DAILY [facility] Last Admin: 05/23/25 08:34 Dose: 100 mg Trazodone HCl (Trazodone Hcl 50 Mg Tablet) 150 mg PO BEDTIME [facility] Last Admin: 05/23/25 20:53 Dose: 150 mg Allergies Allergies Allergy/AdvReac Type Severity Reaction Status Date / Time acetaminophen Allergy Unknown PANADOL = Verified 04/26/25 02:41 ACETAMINOPHEN SHELLFISH Allergy Mild PATIENT Uncoded 04/26/25 02:41 REPORTS BURNING SENSATION THROUGHOUT OPIATES Allergy Unknown BECAME Uncoded 04/26/25 02:41 ADDICTED PANADOL Allergy Unknown UNKNOWN Uncoded 04/26/25 02:41 Assessment & Plan Assessment & Plan (1) Schizoaffective disorder: Qualifiers: Schizoaffective disorder type: unspecified Qualified Code(s): F25.9 - Schizoaffective disorder, unspecified Status: Acute Code(s): F25.9 - Schizoaffective disorder, unspecified (2) Intellectual delay: Status: Acute Code(s): F81.9 - Developmental disorder of scholastic skills, unspecified (3) Major neurocognitive disorder: Status: Acute Code(s): F03.90 - Unspecified dementia, unspecified severity, without behavioral disturbance, psychotic disturbance, mood disturbance, and anxiety Plan Patient is a 60 year old male with hx of schizoaffective d/o and intellectual delay who was brought to [facility] via ambulance from home due to his family reporting patient has been aggressive and noncompliant with medication Plan: 12B 5 minute safety checks continue home mediations obtain collateral encourage groups discharge planning 04/28: Active on unit, social with Algerian speaking peers. medication compliant. 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 disorganized. Answers questions inappropriately at times. flight of ideas. Stating his brother in law is a multiple times, however unable to explain how that was relevant to the conversation. Overheard making animal noises. Pt reports seeing blood on the cevallos and auditory hallucinations of airplane sounds . denies SI/HI. Per nursing, slept 7 hours last night. Transferred to Geriatric unit for continued care. 04/29 pt not oriented to situation, nor month nor year, which is baseline for him. He is overly friendly with poor boundaries at times. No aggression. taking medications as prescribed. filed for involuntary commitment. 05/01 - pt agitated but seeking IM medications- got good response- will repeat 05/02 response to ims was actually limited nursing report to 45min and provider last night reviewed chart and found depakote helpful in past- and has started reloading- I added 250mg er am dose to help thru day today- and prn haldol prn valium low dose - 05/03 started on depakote over the weekend. insisting on leaving thinking he has to go to work. 05/04 will switch depakote ER to DR 750mg po BID. will schedule olanzapine 5mg po TID. may need to add second mood stabilizer. 05/05 continue tx. 05/06 increase olanzapine to 10mg po TID, will continue risperidone for now as well. 05/07 depakote level 78. ammonia wnl. on two scheduled antipsychotics but continues to present with paranoid delusions, intrusive and more agitated. 05/08: Continue current regimen and plans 05/09: Continue current regimen and plans 05/10 will add carbamazepine, as pt continues to present as intrusive, paranoid. 05/11 continue current tx. before making other changes. 05/12 continue tx. 05/13 continues with fregoli and paranoid delusions. very fearful about being on the unit because he thinks he is going to be killed. Pt having EPS side effects from antipsychotics- will d/c olanzapine scheduled which will leave as PRN, D/C haldol due to EPS. increase cogentin 1mg po BID. continue risperidone 3mg po TID. Continue depakote 750mg po BID, add carbamazepine 200mg po BID (may switch depakote to carbamazepine as he used to be on this medication and seemed to have worked better). 05/14 decrease risperidone to 2mg po TID, don't think higher doses have increase therapeutic benefits and instead causing significant side effects. he does need more time with the medications. continue valium 2mg po TID, carbamazepine and depakote. 05/15 much less sedation, no drooling, gait much improved. He is slightly calmer, less paranoid. although continues to be afraid of staying here becuse he thinks he is going to be killed. taking medications. social with Algerian speaking peers. 05/16 continue tx. 05/18 continue tx. 05/19/25: Sleep and appetite has been good, less intrusive, over friend lives at times. No SI/SIB/HI/AVH. Hyper focused on leaving to see his mom and his . Reports visual hallucination seeing blood on the war as every day but increase at nighttime. I ordered Depakote level. Tegretol level, and prolactin level for tomorrow. Renew diazepam. Discontinue nicotine patch as he has has not used it since admitted here. 05/22: no changes to primary team plan 05/23: no changes 05/24 continue tx. less intrusive, less paranoid delusions. taking medications. Reason for continued inpatient stay Substantial Risk for: inability to function Time Spent With Patient Time: Total time managing care of this patient today ____ minutes.
[2025-05-24] MEDS: Aspirin Enteric Coated 81 MG TABLET.DR PO (09:02)
[2025-05-24 09:03] VITALS: BP 124/70
[2025-05-24] MEDS: Ferrous Sulfate 324 MG TABLET.DR PO (09:04)
[2025-05-24] MEDS: Artificial Tears 15 ML DROPS 2 DROP EYE-BOTH (09:43)
[2025-05-24] MEDS: Clotrimazole 1 % Cream 15 GM TUBE 1 APPL TOPICAL ×2 (09:44→19:51)
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
[2025-05-24 20:00] VITALS: BP 113/56; PULSE 83; RESP 16; TEMP 36.3; O2SAT 98
[2025-05-25 07:42] VITALS: BP 108/58; PULSE 78; RESP 14; TEMP 36.4; O2SAT 99
[2025-05-25] MEDS: Ferrous Sulfate 324 MG TABLET.DR PO (08:28)
[2025-05-25] MEDS: Aspirin Enteric Coated 81 MG TABLET.DR PO (08:28)
[2025-05-25] MEDS: Artificial Tears 15 ML DROPS 2 DROP EYE-BOTH (08:30)
[2025-05-25] MEDS: Clotrimazole 1 % Cream 15 GM TUBE 1 APPL TOPICAL ×2 (08:37→20:06)
--- NOTE | 2025-05-25 16:38 | HO.PSYCHPN ---
Subjective Subjective Date of Service: 05/25/25 Reason For Visit: Crisis Subjective Notes: Section 8 Interim History: Pt slept through the night. He presents much less paranoid, not thinking he is being killed at night if he stays here. Baseline delusions include his idea that he is . He is much less intrusive. He is able to hold on the plan that he will be discharged soon in next week and that he is doing better. Medication Compliance: Yes Review of Systems Review of Systems Limited review of systems due to dementia, he denies any pain or discomfort. Yes all other systems are reviewed and are negative and Unobtainable due to mental status Mental Status Exam Mental Status Exam Narrative: Appearance: Wearing his own clothes with fair ADLs. Behavior: friendly and cooperative. Can be intrusive. Speech: clear, regular rate/rhythm/volume, spontaneous TP: goal oriented- wanting to go home TC: WNL. Mood: good Affect: Constricted, congruent SI: denies HI: denies VH/AH:no overt Delusions: nothing overt Insight/judgment: limited Memory/cog: alert, oriented but limited understanding of hospital admission and situation. Diagnostics Vital Signs (24Hr): Vital Signs - 24 hr 05/24/25 20:00 05/25/25 07:42 Temperature 97.3 F 97.5 F Pulse Rate 83 78 Respiratory Rate 16 14 Blood Pressure 113/56 L 108/58 L Pulse Oximetry 98 99 Oxygen Delivery Method Room Air Room Air BMI result Body Mass Index 28.7 Labs 05/20/25 13:34 05/20/25 13:34 Medications Medications Current Medications Al Hydroxide/Mg Hydroxide (Magnesium Hydrox/Alum Hydrox 30 Ml Oral.Susp) 30 ml PO Q6H PRN PRN Reason: Heartburn/Nausea Last Admin: 05/18/25 02:38 Dose: 30 ml Albuterol Sulfate (Albuterol Sulfate 90 Mcg 8 Gm Inhaler) 2 puff INHALE Q4H PRN PRN Reason: Wheezing Last Admin: 05/19/25 19:49 Dose: 2 puff Amlodipine Besylate (Amlodipine Besylate 2.5 Mg Tablet) 2.5 mg PO DAILY [facility]; Protocol Last Admin: 05/25/25 08:29 Dose: 2.5 mg Artificial Tears (Artificial Tears 15 Ml Drops) 2 drop EYE-BOTH Q4H PRN PRN Reason: Dry Eyes Last Admin: 05/25/25 08:30 Dose: 2 drop Aspirin (Aspirin Enteric Coated 81 Mg Tablet.) 81 mg PO DAILY [facility] Last Admin: 05/25/25 08:28 Dose: 81 mg Atorvastatin Calcium (Atorvastatin Calcium 40 Mg Tablet) 40 mg PO BEDTIME [facility] Last Admin: 05/24/25 19:46 Dose: 40 mg Benztropine Mesylate (Benztropine Mesylate 0.5 Mg Tablet) 0.5 mg PO TID [facility] Last Admin: 05/25/25 14:43 Dose: 0.5 mg Carbamazepine (Carbamazepine 200 Mg Tablet) 200 mg PO BID [facility] Last Admin: 05/25/25 08:28 Dose: 200 mg Clotrimazole (Clotrimazole 1 % Cream 15 Gm Tube) 1 appl TOPICAL BID [facility]; Protocol Last Admin: 05/25/25 08:37 Dose: 1 appl Diazepam (Diazepam 2 Mg Tablet) 2 mg PO TID [facility] Last Admin: 05/25/25 14:43 Dose: 2 mg Divalproex Sodium (Divalproex Sodium 500 Mg Tablet.) 500 mg PO BID [facility] Last Admin: 05/25/25 08:28 Dose: 500 mg Ferrous Sulfate (Ferrous Sulfate 324 Mg Tablet.) 324 mg PO DAILY [facility] Last Admin: 05/25/25 08:28 Dose: 324 mg Folic Acid (Folic Acid 1 Mg Tablet) 1 mg PO DAILY [facility] Last Admin: 05/25/25 08:28 Dose: 1 mg Ibuprofen (Ibuprofen 600 Mg Tablet) 600 mg PO Q6H PRN PRN Reason: moderate,pain Last Admin: 05/21/25 21:02 Dose: 600 mg Magnesium Hydroxide (Milk Of Magnesia 30 Ml Oral.Susp) 30 ml PO DAILY PRN PRN Reason: Constipation Nicotine Polacrilex (Nicotine Polacrilex 2 Mg Gum) 4 mg BUCCAL Q2H PRN PRN Reason: Nicotine Cravings Olanzapine (Olanzapine Odt 10 Mg Tab.Rapdis) 10 mg TRANSLINGU Q6H PRN PRN Reason: agitation Last Admin: 05/18/25 00:59 Dose: 10 mg Omeprazole (Omeprazole 20 Mg Capsule.) 20 mg PO DAILY@0630 [facility] Last Admin: 05/25/25 06:05 Dose: 20 mg Risperidone (Risperidone 2 Mg Tablet) 2 mg PO TID [facility] Last Admin: 07/08/25 14:43 Dose: 2 mg Thiamine HCl (Thiamine Hcl 100 Mg Tablet) 100 mg PO DAILY [facility] Last Admin: 05/25/25 08:28 Dose: 100 mg Trazodone HCl (Trazodone Hcl 50 Mg Tablet) 150 mg PO BEDTIME [facility] Last Admin: 05/24/25 19:45 Dose: 150 mg Allergies Allergies Allergy/AdvReac Type Severity Reaction Status Date / Time acetaminophen Allergy Unknown PANADOL = Verified 04/26/25 02:41 ACETAMINOPHEN SHELLFISH Allergy Mild PATIENT Uncoded 04/26/25 02:41 REPORTS BURNING SENSATION THROUGHOUT OPIATES Allergy Unknown BECAME Uncoded 04/26/25 02:41 ADDICTED PANADOL Allergy Unknown UNKNOWN Uncoded 04/26/25 02:41 Assessment & Plan Assessment & Plan (1) Schizoaffective disorder: Qualifiers: Schizoaffective disorder type: unspecified Qualified Code(s): F25.9 - Schizoaffective disorder, unspecified Status: Acute Code(s): F25.9 - Schizoaffective disorder, unspecified (2) Major neurocognitive disorder: Status: Acute Code(s): F03.90 - Unspecified dementia, unspecified severity, without behavioral disturbance, psychotic disturbance, mood disturbance, and anxiety (3) Intellectual delay: Status: Acute Code(s): F81.9 - Developmental disorder of scholastic skills, unspecified Plan Mr. Morillo is a 60 year-old male with hx of schizoaffective disorder, intellectual disability, major neurocognitive disorder who presented with exacerbation of paranoid delusions and psychosis. MEDICAL Hypertension/hyperlipidemia/CAD, history of [place] and stent 2020. Continue aspirin, amlodipine, atorvastatin Blood pressures have been stable, labs reviewed and stable BPH Monitor voiding pattern. Bladder scan if patient has evidence of retention. PSYCHIATRIC 7/8 continue tx. much less paranoid, less intrusive. close to baseline. Reason for continued inpatient stay Substantial Risk for: inability to function Time Spent With Patient Time: Total time managing care of this patient today ____ minutes.
[2025-05-25 20:00] VITALS: BP 114/49; PULSE 71; RESP 16; TEMP 35.9; O2SAT 98
[2025-05-26 08:00] VITALS: BP 112/89; PULSE 89; TEMP 36.5; O2SAT 97
[2025-05-26] MEDS: Aspirin Enteric Coated 81 MG TABLET.DR PO (09:15)
[2025-05-26] MEDS: Ferrous Sulfate 324 MG TABLET.DR PO (09:15)
[2025-05-26] MEDS: Artificial Tears 15 ML DROPS 2 DROP EYE-BOTH (10:41)
--- NOTE | 2025-05-26 16:43 | HO.PSYCHPN ---
Subjective Subjective Date of Service: 05/26/25 Reason For Visit: Crisis Subjective Notes: Conditional Voluntary Interim History: Pt slept through the night. He presents much less paranoid, not thinking he is being killed at night if he stays here. Baseline delusions include his idea that he is . He is much less intrusive. He is able to hold on the plan that he will be discharged soon in next week and that he is doing better. No change. Review of Systems Review of Systems Limited review of systems due to dementia, he denies any pain or discomfort. Yes all other systems are reviewed and are negative and Unobtainable due to mental status Mental Status Exam Mental Status Exam Narrative: Appearance: Wearing his own clothes with fair ADLs. Behavior: friendly and cooperative. Can be intrusive. Speech: clear, regular rate/rhythm/volume, spontaneous TP: goal oriented- wanting to go home TC: WNL. Mood: good Affect: Constricted, congruent SI: denies HI: denies VH/AH:no overt Delusions: nothing overt Insight/judgment: limited Memory/cog: alert, oriented but limited understanding of hospital admission and situation. Diagnostics Vital Signs (24Hr): Vital Signs - 24 hr 05/25/25 20:00 05/26/25 08:00 Temperature 96.6 F L 97.7 F Pulse Rate 71 89 Respiratory Rate 16 Blood Pressure 114/49 L 112/89 Pulse Oximetry 98 97 Oxygen Delivery Method Room Air Room Air BMI result Body Mass Index 28.7 Labs 05/20/25 13:34 05/20/25 13:34 Medications Medications Current Medications Al Hydroxide/Mg Hydroxide (Magnesium Hydrox/Alum Hydrox 30 Ml Oral.Susp) 30 ml PO Q6H PRN PRN Reason: Heartburn/Nausea Last Admin: 05/18/25 02:38 Dose: 30 ml Albuterol Sulfate (Albuterol Sulfate 90 Mcg 8 Gm Inhaler) 2 puff INHALE Q4H PRN PRN Reason: Wheezing Last Admin: 05/19/25 19:49 Dose: 2 puff Amlodipine Besylate (Amlodipine Besylate 2.5 Mg Tablet) 2.5 mg PO DAILY [facility]; Protocol Last Admin: 05/26/25 09:15 Dose: 2.5 mg Artificial Tears (Artificial Tears 15 Ml Drops) 2 drop EYE-BOTH Q4H PRN PRN Reason: Dry Eyes Last Admin: 05/26/25 10:41 Dose: 2 drop Aspirin (Aspirin Enteric Coated 81 Mg Tablet.) 81 mg PO DAILY [facility] Last Admin: 05/26/25 09:15 Dose: 81 mg Atorvastatin Calcium (Atorvastatin Calcium 40 Mg Tablet) 40 mg PO BEDTIME [facility] Last Admin: 05/25/25 20:06 Dose: 40 mg Benztropine Mesylate (Benztropine Mesylate 0.5 Mg Tablet) 0.5 mg PO TID [facility] Last Admin: 05/26/25 15:25 Dose: 0.5 mg Carbamazepine (Carbamazepine 200 Mg Tablet) 200 mg PO BID [facility] Last Admin: 05/26/25 09:15 Dose: 200 mg Clotrimazole (Clotrimazole 1 % Cream 15 Gm Tube) 1 appl TOPICAL BID [facility]; Protocol Last Admin: 05/26/25 15:27 Dose: Not Given Diazepam (Diazepam 2 Mg Tablet) 2 mg PO TID [facility] Last Admin: 05/26/25 15:25 Dose: 2 mg Divalproex Sodium (Divalproex Sodium 500 Mg Tablet.) 500 mg PO BID [facility] Last Admin: 05/26/25 09:15 Dose: 500 mg Ferrous Sulfate (Ferrous Sulfate 324 Mg Tablet.) 324 mg PO DAILY [facility] Last Admin: 05/26/25 09:15 Dose: 324 mg Folic Acid (Folic Acid 1 Mg Tablet) 1 mg PO DAILY [facility] Last Admin: 05/26/25 09:16 Dose: 1 mg Ibuprofen (Ibuprofen 600 Mg Tablet) 600 mg PO Q6H PRN PRN Reason: moderate,pain Last Admin: 05/21/25 21:02 Dose: 600 mg Magnesium Hydroxide (Milk Of Magnesia 30 Ml Oral.Susp) 30 ml PO DAILY PRN PRN Reason: Constipation Nicotine Polacrilex (Nicotine Polacrilex 2 Mg Gum) 4 mg BUCCAL Q2H PRN PRN Reason: Nicotine Cravings Olanzapine (Olanzapine Odt 10 Mg Tab.Rapdis) 10 mg TRANSLINGU Q6H PRN PRN Reason: agitation Last Admin: 05/18/25 00:59 Dose: 10 mg Omeprazole (Omeprazole 20 Mg Capsule.) 20 mg PO DAILY@0630 [facility] Last Admin: 05/26/25 05:24 Dose: 20 mg Risperidone (Risperidone 2 Mg Tablet) 2 mg PO TID [facility] Last Admin: 05/26/25 15:25 Dose: 2 mg Thiamine HCl (Thiamine Hcl 100 Mg Tablet) 100 mg PO DAILY [facility] Last Admin: 05/26/25 09:15 Dose: 100 mg Trazodone HCl (Trazodone Hcl 50 Mg Tablet) 150 mg PO BEDTIME [facility] Last Admin: 05/25/25 20:04 Dose: 150 mg Allergies Allergies Allergy/AdvReac Type Severity Reaction Status Date / Time acetaminophen Allergy Unknown PANADOL = Verified 04/26/25 02:41 ACETAMINOPHEN SHELLFISH Allergy Mild PATIENT Uncoded 04/26/25 02:41 REPORTS BURNING SENSATION THROUGHOUT OPIATES Allergy Unknown BECAME Uncoded 04/26/25 02:41 ADDICTED PANADOL Allergy Unknown UNKNOWN Uncoded 04/26/25 02:41 Assessment & Plan Assessment & Plan (1) Schizoaffective disorder: Qualifiers: Schizoaffective disorder type: unspecified Qualified Code(s): F25.9 - Schizoaffective disorder, unspecified Status: Acute Code(s): F25.9 - Schizoaffective disorder, unspecified (2) Major neurocognitive disorder: Status: Acute Code(s): F03.90 - Unspecified dementia, unspecified severity, without behavioral disturbance, psychotic disturbance, mood disturbance, and anxiety (3) Intellectual delay: Status: Acute Code(s): F81.9 - Developmental disorder of scholastic skills, unspecified Plan Mr. Morillo is a 60 year-old male with hx of schizoaffective disorder, intellectual disability, major neurocognitive disorder who presented with exacerbation of paranoid delusions and psychosis. MEDICAL Hypertension/hyperlipidemia/CAD, history of [place] and stent 2020. Continue aspirin, amlodipine, atorvastatin Blood pressures have been stable, labs reviewed and stable BPH Monitor voiding pattern. Bladder scan if patient has evidence of retention. PSYCHIATRIC 05/25 continue tx. much less paranoid, less intrusive. close to baseline. 7/ continue tx. Reason for continued inpatient stay Substantial Risk for: inability to function Time Spent With Patient Time: Total time managing care of this patient today ____ minutes.
[2025-05-26 20:00] VITALS: BP 108/55; PULSE 78; RESP 18; TEMP 36.7; O2SAT 97
[2025-05-27 07:55] VITALS: BP 120/65; PULSE 70; RESP 18; TEMP 36.6; O2SAT 100
[2025-05-27] MEDS: Ferrous Sulfate 324 MG TABLET.DR PO (08:19)
[2025-05-27] MEDS: Aspirin Enteric Coated 81 MG TABLET.DR PO (08:19)
[2025-05-27] MEDS: Artificial Tears 15 ML DROPS 2 DROP EYE-BOTH (09:19)
[2025-05-27 11:15] VITALS: BMI 29.4
--- NOTE | 2025-05-27 21:01 | P.PNPSI_ITS ---
Subjective Subjective Date of Service: 05/27/25 Reason For Visit: Crisis Subjective Notes: Section 8 Interim History: Pt sleeping and eating well. He is visible on the unit and social with select peers. He is much less intrusive. He is much less paranoid and suspicious. He is calmer, and more organized and able to attend groups. No behavioral concerns. taking medications. Medication Compliance: Yes Diagnostics Vital Signs (24Hr): Vital Signs - 24 hr 05/27/25 07:55 Temperature 97.9 F Pulse Rate 70 Respiratory Rate 18 Blood Pressure 120/65 Pulse Oximetry 100 Oxygen Delivery Method Room Air BMI result Body Mass Index 29.4 Labs 05/20/25 13:34 05/20/25 13:34 Medications Medications Current Medications Al Hydroxide/Mg Hydroxide (Magnesium Hydrox/Alum Hydrox 30 Ml Oral.Susp) 30 ml PO Q6H PRN PRN Reason: Heartburn/Nausea Last Admin: 05/18/25 02:38 Dose: 30 ml Albuterol Sulfate (Albuterol Sulfate 90 Mcg 8 Gm Inhaler) 2 puff INHALE Q4H PRN PRN Reason: Wheezing Last Admin: 05/19/25 19:49 Dose: 2 puff Amlodipine Besylate (Amlodipine Besylate 2.5 Mg Tablet) 2.5 mg PO DAILY [facility]; Protocol Last Admin: 05/27/25 08:19 Dose: 2.5 mg Artificial Tears (Artificial Tears 15 Ml Drops) 2 drop EYE-BOTH Q4H PRN PRN Reason: Dry Eyes Last Admin: 05/27/25 09:19 Dose: 2 drop Aspirin (Aspirin Enteric Coated 81 Mg Tablet.Dr) 81 mg PO DAILY KAREN Last Admin: 05/27/25 08:19 Dose: 81 mg Atorvastatin Calcium (Atorvastatin Calcium 40 Mg Tablet) 40 mg PO BEDTIME KAREN Last Admin: 05/27/25 20:42 Dose: 40 mg Benztropine Mesylate (Benztropine Mesylate 1 Mg Tablet) 1 mg PO BID KAREN Last Admin: 05/27/25 20:42 Dose: 1 mg Carbamazepine (Carbamazepine 200 Mg Tablet) 200 mg PO BID KAREN Last Admin: 05/27/25 20:42 Dose: 200 mg Clotrimazole (Clotrimazole 1 % Cream 15 Gm Tube) 1 appl TOPICAL BID [facility]; Protocol Last Admin: 05/27/25 20:54 Dose: Not Given Diazepam (Diazepam 2 Mg Tablet) 2 mg PO TID [facility] Last Admin: 05/27/25 20:42 Dose: 2 mg Divalproex Sodium (Divalproex Sodium 500 Mg Tablet.) 500 mg PO BID [facility] Last Admin: 05/27/25 20:42 Dose: 500 mg Ferrous Sulfate (Ferrous Sulfate 324 Mg Tablet.) 324 mg PO DAILY [facility] Last Admin: 05/27/25 08:19 Dose: 324 mg Folic Acid (Folic Acid 1 Mg Tablet) 1 mg PO DAILY [facility] Last Admin: 05/27/25 08:19 Dose: 1 mg Ibuprofen (Ibuprofen 600 Mg Tablet) 600 mg PO Q6H PRN PRN Reason: moderate,pain Last Admin: 05/21/25 21:02 Dose: 600 mg Magnesium Hydroxide (Milk Of Magnesia 30 Ml Oral.Susp) 30 ml PO DAILY PRN PRN Reason: Constipation Nicotine Polacrilex (Nicotine Polacrilex 2 Mg Gum) 4 mg BUCCAL Q2H PRN PRN Reason: Nicotine Cravings Olanzapine (Olanzapine Odt 10 Mg Tab.Rapdis) 10 mg TRANSLINGU Q6H PRN PRN Reason: agitation Last Admin: 05/18/25 00:59 Dose: 10 mg Omeprazole (Omeprazole 20 Mg Capsule.) 20 mg PO DAILY@0630 [facility] Last Admin: 05/27/25 06:14 Dose: 20 mg Risperidone (Risperidone 3 Mg Tablet) 3 mg PO BID [facility] Last Admin: 05/27/25 20:43 Dose: 3 mg Thiamine HCl (Thiamine Hcl 100 Mg Tablet) 100 mg PO DAILY [facility] Last Admin: 05/27/25 08:18 Dose: 100 mg Trazodone HCl (Trazodone Hcl 100 Mg Tablet) 100 mg PO BEDTIME [facility] Last Admin: 05/27/25 20:43 Dose: 100 mg Allergies Allergies Allergy/AdvReac Type Severity Reaction Status Date / Time acetaminophen Allergy Unknown PANADOL = Verified 04/26/25 02:41 ACETAMINOPHEN SHELLFISH Allergy Mild PATIENT Uncoded 04/26/25 02:41 REPORTS BURNING SENSATION THROUGHOUT OPIATES Allergy Unknown BECAME Uncoded 04/26/25 02:41 ADDICTED PANADOL Allergy Unknown UNKNOWN Uncoded 04/26/25 02:41 Assessment & Plan Assessment & Plan (1) Schizoaffective disorder: Qualifiers: Schizoaffective disorder type: unspecified Qualified Code(s): F25.9 - Schizoaffective disorder, unspecified Status: Acute Code(s): F25.9 - Schizoaffective disorder, unspecified (2) Major neurocognitive disorder: Status: Acute Code(s): F03.90 - Unspecified dementia, unspecified severity, without behavioral disturbance, psychotic disturbance, mood disturbance, and anxiety (3) Intellectual delay: Status: Acute Code(s): F81.9 - Developmental disorder of scholastic skills, unspecified Plan Mr. Morillo is a 60 year-old male with hx of schizoaffective disorder, intellectual disability, major neurocognitive disorder who presented with exacerbation of paranoid delusions and psychosis. MEDICAL Hypertension/hyperlipidemia/CAD, history of MO and stent 2020. Continue aspirin, amlodipine, atorvastatin Blood pressures have been stable, labs reviewed and stable BPH Monitor voiding pattern. Bladder scan if patient has evidence of retention. PSYCHIATRIC 05/25 continue tx. much less paranoid, less intrusive. close to baseline. 05/26 continue tx. 05/27 continue tx. plan to dc tomorrow. Reason for continued inpatient stay Substantial Risk for: inability to function Time Spent With Patient Time: Total time managing care of this patient today ____ minutes.
[2025-05-28 08:00] VITALS: BP 114/68; PULSE 80; RESP 18; TEMP 36.1; O2SAT 99
[2025-05-28 09:33] VITALS: BP 114/68
[2025-05-28] MEDS: Ferrous Sulfate 324 MG TABLET.DR PO (09:33)
[2025-05-28] MEDS: Artificial Tears 15 ML DROPS 2 DROP EYE-BOTH (09:33)
[2025-05-28] MEDS: Clotrimazole 1 % Cream 15 GM TUBE 1 APPL TOPICAL (09:34)
[2025-05-28] MEDS: Aspirin Enteric Coated 81 MG TABLET.DR PO (09:40)
--- NOTE | 2025-05-28 10:39 | PM.PSYDC ---
DS: Providers Provider Date of Service: 05/28/25 Date of admission: 04/27/25 12:41 Date of discharge: 05/28/25 Primary care physician: [facility] Discharging clinician: Georgette Estrella DS: Diagnosis Discharge Diagnosis (1) Schizoaffective disorder: Status: Acute (2) Major neurocognitive disorder: Status: Acute (3) Intellectual delay: Status: Acute DS: Medications Discharge Medications Home Medications: Previous Rx's ?Medication ?Instructions ?Recorded albuterol sulfate 90 mcg/actuation 2 puff inhalation Q4H PRN Wheezing 05/28/25 aerosol inhaler (Ventolin HFA) #6.7 grams amlodipine 2.5 mg tablet 2.5 mg PO DAILY #30 tabs 05/28/25 aspirin 81 mg tablet,delayed 81 mg PO DAILY #30 tabs 05/28/25 release atorvastatin 40 mg tablet 40 mg PO BEDTIME #30 tabs 05/28/25 benztropine 1 mg tablet 1 mg PO BID #60 tabs 05/28/25 carbamazepine 200 mg tablet 200 mg PO BID #60 tabs 05/28/25 diazepam 2 mg tablet 2 mg PO TID #90 tabs 05/28/25 divalproex 500 mg tablet,delayed 500 mg PO BID #60 tabs 05/28/25 release ferrous sulfate 324 mg (65 mg 324 mg PO DAILY #30 tabs 05/28/25 iron) tablet,delayed release omeprazole 20 mg capsule,delayed 20 mg PO DAILY #30 caps 05/28/25 release risperidone 3 mg tablet 3 mg PO BID #60 tabs 05/28/25 trazodone 100 mg tablet 100 mg PO BEDTIME #30 tabs 05/28/25 Mental Status Exam Mental Status Exam Narrative: Appearance: Wearing his own clothes with fair ADLs. Behavior: friendly and cooperative. Can be intrusive. Speech: clear, regular rate/rhythm/volume, spontaneous TP: goal oriented- wanting to go home TC: WNL. Mood: good Affect: Constricted, congruent SI: denies HI: denies VH/AH:no overt Delusions: nothing overt Insight/judgment: limited Memory/cog: alert, at baseline not oriented to month nor year nor date. He does know he is in the hospital but insight as to why is limited. Data Data Completed and Pending Completed studies during hospitalization [Text1]: 05/22/25 07:30 Valproic Acid 43.0 L Carbamazepine 7.5 DS: Summary Hospital Course Hospital Course: Patient is a 60 year old male with hx of schizoaffective d/o and intellectual delay who was brought to [facility] via ambulance from home due to his family reporting patient has been aggressive and noncompliant with medications. Per crisis report, pt has a legal guardian and riley order. Patient arrived to ER on a section 12 via ambulance from home called by his family in response to aggression and noncompliance with medication. Upon arrival to ER patient was agitated and combative, required chemical restraint. Patient's family reports he has been acting unusual, hallucinating, delusional and switching from crying to angry to happy . He reports someone pointing a gun at him while he was trying to buy cigarettes. Unable to focus and answer questions. [facility] provides case management services and direct care staff are there Saturday through . Case management comes once per week. Patient attends a day program, Saturday and Wednesdays. Patient has a legal guardian (Blair Neumann [phone]) and [facility] (Marlyn Bautista [phone]). His VNA is ([facility] through [facility], ). Collateral was obtained from patient's brother Chris, who reports pt was outside yelling, accusing strangers of stealing his things. Patient has been giving away his belongings to people walking by the house;this has been going on for a week. Visiting nurse reported patient has been declining over the last few days. Per VNA, patient decompensates every 9 to 12 months even when taking medications. History of multiple inpatient psychiatric hospitalizations. During admission assessment, calciminer present. Disorganized. Oriented to person, place and situation. Patient reports he came to the hospital because of his nerves . Patient stated, I had a nerve attack and my family brought me here. There is a nurse that comes to my house; I take my meds everyday . Patient making animal noises randomly throughout assessment. denies SI/HI/AH. He reports visual hallucinations of blood on the cevallos . Patient reports he always has these and they never go away . Patient stated, he makes animal noises due to seeing the blood like the animals are being killed . Patient reports he feels fine and does not believe he needs to be inpatient. Poor historian. Repeating his name multiple times during assessment. Section 12B; placed on 5 minute checks d/t disorganization. Past Psychiatric History: History of multiple inpatient psychiatric hospitalizations. Patient has a legal guardian (Blair Neumann [phone]) and [facility] (Marlyn Michele [phone]). His VNA is ([facility] through [facility], ). Medical Evaluation Reviewed: Yes HOSPITAL COURSE On the unit, pt was admitted on a Sect 12b. Pt presented with paranoid delusions, intrusive, thinking most people on the unit were related to him. He was agitated, posturing to staff and peers due to increase paranoid delusions. We petition to court for involuntary treatment as pt was not safe to be discharged at the end of the sect 12b. Petition was granted. He does have a albert's which includes risperidone and olanzapine. In the past he has been stabilize on risperidone in combination of mood stabilizer. He had number of chemical and physical restraints at beginning of admission in context of him attempting to elope the unit as he thought he was going to be killed. He was maintain on risperidone but dose was decreased due to drooling and EPS from 3mg po TID to 2mg po TID. What seemed to make a significant difference in his presentation was addition of carbamazepine 200mg po BID and depakote 500mg po BID. He was also started on diazepam (change from clonazepam) 2mg po TID. He gradually presented as much less paranoid, less intrusive. He was much more appropriate and eventually was able to join groups and participate appropriately. At time of discharge, pt does not have SI/HI, he has not shown any aggression towards self or others. He is sleeping and eating well. He had episodes of reporting chest pain. He does have a hx of SC and cardiomyopathy. EKG were completed along with troponins and did not show signs of ischemia. His VS were stable on current dose of amlodipine. No signs of orthostatic HOTN. At baseline, note that he is only oriented to place, self, but not to month nor year. Status at Discharge Cognitive/behavioral status at discharge: Pt with bright non labile affect. No SI/HI. No overt psychosis or delusions. Sleeping and eating well. No aggression towards self or others. Time Spent with Patient Time attestation: Total time managing care of this patient today ___45_ minutes. Time spent: Greater than 30 minutes Discharge Plan Discharge Anticipated Discharge Date/Time: 05/28/25 10:28 Patient Disposition: Home, Self-Care Discharge Diagnosis: Schizoaffective Disorder Referrals: [facility] [Other] - 1 Week Referral Note: Your DDS team will be in contact and resume case management at time of discharge. [facility] [Other] - 05/28/25 Referral Note: [facility] services to restart following discharge. [facility] will contact you to schedule home visit. [facility] [Other] - 05/28/25 1:00 pm Referral Note: Your [facility] outeach JENNIFER Cline will come provide home visit on 05/28/[address] [facility] [Other] - 06/01/25 Referral Note: Please resume your day program twice a week as scheduled. [facility] [Other] - 1 Week Referral Note: Your next appointmet with Lesa is 06/16/25 for Therapy. Your [facility] caser shoe parts will attempt to make sooner appointemnt with alternative clinician if needed. Your therapist is out of the office until the end of May. Your next appointment with Dr Ayers is: Requests have been made for follow up appointment. Please follow up with the office directly for your appointment. [facility] [Primary Care Provider, Medical] - 06/17/25 10:45 am Referral Note: Your next Primary Care Doctor appointment is scheduled with Cammy Friedman on 06/17/25 at 10:45am. [facility] direct clinic Discharge Medications: New atorvastatin 40 mg Tablet 40 mg PO BEDTIME Qty: 30 0RF amlodipine 2.5 mg Tablet 2.5 mg PO DAILY Qty: 30 0RF Protocol: Hold for SBP< HOLD for SBP < : 90 divalproex 500 mg Tablet,Delayed Release (Dr/Ec) 500 mg PO BID Qty: 60 0RF aspirin 81 mg Tablet,Delayed Release (Dr/Ec) 81 mg PO DAILY Qty: 30 0RF risperidone 3 mg Tablet 3 mg PO BID Qty: 60 0RF carbamazepine 200 mg Tablet 200 mg PO BID Qty: 60 0RF trazodone 100 mg Tablet 100 mg PO BEDTIME Qty: 30 0RF diazepam 2 mg Tablet 2 mg PO TID Qty: 90 0RF benztropine 1 mg Tablet 1 mg PO BID Qty: 60 0RF omeprazole 20 mg Capsule,Delayed Release(Dr/Ec) 20 mg PO DAILY Qty: 30 0RF albuterol sulfate [Ventolin HFA] 90 mcg/actuation Hfa Aerosol Inhaler 2 puff inhalation Q4H PRN (Reason: Wheezing) Qty: 6.7 0RF ferrous sulfate 324 mg (65 mg iron) Tablet,Delayed Release (Dr/Ec) 324 mg PO DAILY Qty: 30 0RF Discontinued nicotine (polacrilex) 2 mg Gum 4 mg buccal Q2H PRN (Reason: Nicotine Cravings) Qty: 60 0RF aspirin 81 mg Tablet,Delayed Release (Dr/Ec) 81 mg PO DAILY Qty: 30 0RF albuterol sulfate [Ventolin HFA] 90 mcg/actuation Hfa Aerosol Inhaler 2 puff inhalation Q4H PRN (Reason: Wheezing) Qty: 6.7 0RF ferrous sulfate 324 mg (65 mg iron) Tablet,Delayed Release (Dr/Ec) 324 mg PO DAILY Qty: 30 0RF omeprazole 20 mg Capsule,Delayed Release(Dr/Ec) 20 mg PO DAILY@0630 Qty: 30 0RF folic acid 1 mg Tablet 1 mg PO DAILY Qty: 30 0RF atorvastatin 40 mg tablet 40 mg PO BEDTIME thiamine HCl (vitamin B1) 100 mg tablet 100 mg PO DAILY amlodipine 2.5 mg tablet 2.5 mg PO DAILY mirtazapine 45 mg tablet 45 mg PO BEDTIME clonazepam 0.5 mg tablet 0.5 mg PO BID risperidone 3 mg tablet 3 mg PO TID trazodone 100 mg tablet 100 mg PO BEDTIME benztropine 1 mg tablet 1 mg PO BEDTIME Discharge Orders: Discharge Order (Routine); Ordered 05/28/25 Ordered By: Georgette Estrella Diet: Low fat, low cholesterol Activity on Discharge: As tolerated Stand Alone Forms: Patient Portal Discharge page, Community Support Print Language: [place] Care Plan Goals: maintain mood No SI/HI No aggression towards self or others Health Concerns: Follow up with PCP for routine care Plan of Treatment: 1. Take medications as prescribed 2. Go to nearest ED or call 911 in events Assessment: Pt with brighter, non labile affect. No SI/HI. No overt psychosis or delusions. Sleeping and eating well.
== END 2025-05-28 11:10 | disposition home or self-care (01) | DRG 750 ==
LOC: HO.ED 18:44 → HO.PADLT16 04-27 12:57 → HO.PGERI 04-28 12:46
PROVIDERS: Emergency Medicine Emergency Medical Services; Nurse Practitioner Psychiatric/Mental Health; Psychiatry & Neurology Psychiatry; Social Worker; Student in an Organized Health Care Education/Training Program; Admitting Provider Registered Nurse; Emergency Provider Internal Medicine; Visit Provider Psychiatry & Neurology Psychiatry
DX: F25.9 Schizoaffective disorder, unspecified (principal); F03.90 Unspecified dementia, unspecified severity, without behavioral disturbance, psychotic disturbance, mood disturbance, and anxiety; F81.9 Developmental disorder of scholastic skills, unspecified; I25.10 Atherosclerotic heart disease of native coronary artery without angina pectoris; I10 Essential (primary) hypertension; E78.5 Hyperlipidemia, unspecified; N40.0 Benign prostatic hyperplasia without lower urinary tract symptoms; I25.2 Old myocardial infarction; Z91.148 Patient's other noncompliance with medication regimen for other reason; Z79.82 Long term (current) use of aspirin; Z79.899 Other long term (current) drug therapy
CPT/HCPCS: 36415; 80053; 80061; 80156; 80164; 80307; 81001; 82140; 83036; 84146; 84484; 85025; 93005; 99285; J1200; J1630; J2250; J3360; S9485

== ENCOUNTER → 2025-04-27 10:04 | Outpatient (BNV) | payer MEDICAID, SELFPAY | PROVIDERS: Emergency Provider Internal Medicine; Visit Provider Internal Medicine Cardiovascular Disease | DX: R00.0 Tachycardia, unspecified (principal); I25.2 Old myocardial infarction | CPT/HCPCS: 93010 ==

== ENCOUNTER 2025-04-27 12:41 | Outpatient (BNV) | payer MEDICAID, SELFPAY | END 2025-05-02 09:00 | PROVIDERS: Admitting Provider Registered Nurse; Emergency Provider Internal Medicine; Visit Provider Internal Medicine Cardiovascular Disease | DX: R00.0 Tachycardia, unspecified (principal) | CPT/HCPCS: 93010 ==

== ENCOUNTER 2025-04-27 12:41 | Outpatient (BNV) | payer MEDICAID, SELFPAY | END 2025-05-20 14:21 | PROVIDERS: Admitting Provider Registered Nurse; Emergency Provider Internal Medicine; Visit Provider Internal Medicine Cardiovascular Disease | DX: R94.31 Abnormal electrocardiogram [ECG] [EKG] (principal); R07.9 Chest pain, unspecified | CPT/HCPCS: 93010 ==

== ENCOUNTER 2025-04-27 12:41 | Outpatient (BNV) | payer MEDICAID, SELFPAY | END 2025-05-03 10:32 | PROVIDERS: Admitting Provider Registered Nurse; Emergency Provider Internal Medicine; Visit Provider Internal Medicine Cardiovascular Disease | DX: R00.0 Tachycardia, unspecified (principal) | CPT/HCPCS: 93010 ==

== ENCOUNTER → 2025-04-27 12:41 | Outpatient (BNV) | payer OTHER, SELFPAY | PROVIDERS: Admitting Provider Registered Nurse; Emergency Provider Internal Medicine; Visit Provider Registered Nurse | DX: F25.9 Schizoaffective disorder, unspecified (principal); F81.9 Developmental disorder of scholastic skills, unspecified; F03.90 Unspecified dementia, unspecified severity, without behavioral disturbance, psychotic disturbance, mood disturbance, and anxiety | CPT/HCPCS: 99232; 99233; 99499 ==

== ENCOUNTER → 2025-04-27 12:41 | Outpatient (BNV) | payer MEDICAID, SELFPAY | PROVIDERS: Admitting Provider Registered Nurse; Emergency Provider Internal Medicine; Visit Provider Nurse Practitioner Family | DX: I10 Essential (primary) hypertension (principal); I25.10 Atherosclerotic heart disease of native coronary artery without angina pectoris | CPT/HCPCS: 99221 ==

== ENCOUNTER 2025-07-11 11:04 | Emergency (ER) | payer MEDICAID, SELFPAY ==
[2025-07-11 11:20] VITALS: BP 124/90; PULSE 107; O2SAT 99; BMI 25.4
[2025-07-11 11:53] VITALS: BP 150/94; PULSE 118; RESP 18; O2SAT 98
--- NOTE | 2025-07-11 12:26 | ED.PSYCH ---
HPI - Psych General Chief Complaint: Psychiatric Symptoms Stated Complaint: CRISIS,[facility]NA STS NOT TAKING PSYCH MEDS X3D, TREMORS Time Seen by Provider: 07/11/25 12:04 Source: patient and EMS Mode of arrival: EMS Limitations: no limitations History of Present Illness ED Provider: Lourdes Da Silva APRN HPI Narrative: 60-year-old male with a history of schizophrenia who presents to the ER with paranoia concern from family that he is not taking his medication or taking care of himself. Patient on arrival is very anxious, pacing, diaphoretic. Patient denies SI/HI/AVH. Denies substance use. Difficult to obtain tangible HPI from patient as he is rambling Related Data Previous Rx's ?Medication ?Instructions ?Recorded albuterol sulfate 90 mcg/actuation 2 puff inhalation Q4H PRN Wheezing 05/28/25 aerosol inhaler (Ventolin HFA) #6.7 grams amlodipine 2.5 mg tablet 2.5 mg PO DAILY #30 tabs 05/28/25 aspirin 81 mg tablet,delayed 81 mg PO DAILY #30 tabs 05/28/25 release atorvastatin 40 mg tablet 40 mg PO BEDTIME #30 tabs 05/28/25 benztropine 1 mg tablet 1 mg PO BID #60 tabs 05/28/25 carbamazepine 200 mg tablet 200 mg PO BID #60 tabs 05/28/25 diazepam 2 mg tablet 2 mg PO TID #90 tabs 05/28/25 divalproex 500 mg tablet,delayed 500 mg PO BID #60 tabs 05/28/25 release ferrous sulfate 324 mg (65 mg 324 mg PO DAILY #30 tabs 05/28/25 iron) tablet,delayed release omeprazole 20 mg capsule,delayed 20 mg PO DAILY #30 caps 05/28/25 release risperidone 3 mg tablet 3 mg PO BID #60 tabs 05/28/25 trazodone 100 mg tablet 100 mg PO BEDTIME #30 tabs 05/28/25 Allergies Allergy/AdvReac Type Severity Reaction Status Date / Time acetaminophen Allergy Unknown PANADOL = Verified 07/11/25 11:25 ACETAMINOPHEN SHELLFISH Allergy Mild PATIENT Uncoded 04/26/25 02:41 REPORTS BURNING SENSATION THROUGHOUT OPIATES Allergy Unknown BECAME Uncoded 04/26/25 02:41 ADDICTED PANADOL Allergy Unknown UNKNOWN Uncoded 04/26/25 02:41 Review of Systems Review of Systems: Yes all other systems are reviewed and are negative Constitutional: Constitutional: Reports no additional constitutional complaints, Denies body ache(s), Denies chills, Denies fever(s), Denies headache(s) and Denies weakness Eyes: Eyes: Reports no additional eye complaints and Denies change in vision ENT: Reports system reviewed and no additional complaints, except as documented, Denies dizziness, Denies headache(s), Denies nasal congestion, Denies nasal discharge and Denies neck pain Cardiovascular: Cardiovascular: Reports no additional cardiovascular complaints, Denies chest pain, Denies leg edema and Denies dyspnea Respiratory: Respiratory: Reports no additional respiratory complaints, Denies cough and Denies dyspnea Gastrointestinal: Gastrointestinal: Reports no additional gastrointestinal complaints, Denies abdominal pain, Denies diarrhea, Denies nausea and Denies vomiting Genitourinary: Genitourinary: Denies urinary incontinence Musculoskeletal: Musculoskeletal: Reports no additional musculoskeletal complaints, Denies back pain, Denies arthralgias, Denies joint swelling, Denies neck pain, Denies numbness and Denies tingling Integumentary/Breasts: Skin/Breast: Reports system reviewed and no additional complaints, except as docu and Denies rash Neurologic: Reports system reviewed and no additional complaints, except as documented, Denies Abnormal speech present, Denies dizziness, Denies headache(s), Denies numbness, Denies tingling and Denies weakness Psychiatric: Psychiatric: Reports anxiety, Denies homicidal ideation and Denies suicidal ideation PMFSH Past Medical History Attestation statement: The following information was validated with the patient. Source: old records reviewed and nursing notes reviewed Medical History Schizoaffective disorder History of hepatitis C CAD (coronary artery disease) (~2019) Chest pain Palpitations Hypertension Hyperlipidemia History of ST elevation myocardial infarction (STEMI) (~2019) COPD (chronic obstructive pulmonary disease) Cough Nicotine dependence, cigarettes, uncomplicated Tubular adenoma BPH (benign prostatic hyperplasia) Surgical History History of heart artery stent (~2019) History of colonoscopy (~2021) History of esophagogastroduodenoscopy (EGD) (~2022) History of right inguinal hernia repair (~2003) History of left inguinal hernia repair (~2007) Family History Family History Father Edema Mother Developmental delay Social History Social History Household Members: Family Housing: Apartment Do you presently have visiting nurse or other home services: Yes Unable to assess alcohol history related to: Unable to respond Alcohol intake: never Comment: 1:1 Patient Tobacco Use Status: Never used Tobacco Tobacco use type: Cigarette Cigarette Packs Per Day: 1 Cigarettes Per Day: 20.0 Years Smoked: onset 12yo, 1ppd x 44yrs, 40pyh - Smoked in Last 30 Days: No e-Cigarette/Vaping Use: Never Used Second Hand Smoke Exposure: No Substance Use Type: Marijuana Advance Directives: No Advance Directives Information Provided: No service: No Current occupational status: disabled Sexual orientation: Straight/Heterosexual Physical Exam Vital Signs: Vital Signs: Last Vital Signs Temp 97.7 F 07/14/25 08:09 Pulse 77 07/14/25 08:09 Resp 16 07/14/25 08:09 BP 133/67 07/14/25 08:09 Pulse Ox 96 07/14/25 08:09 O2 Del Method Room Air 07/14/25 08:09 BMI result Body Mass Index 25.4 Const: Other: anxious General: alert Orientation/consciousness: patient oriented x3 Limitations: no limitations HEENT: Head: Yes normal to inspection Ears: hearing grossly normal bilaterally General nose exam: Normal external nose present Face and sinus: Yes normal facial exam Mouth: Normal oral and palatal mucosa present Throat: Yes posterior oropharynx normal Eyes: General: appearance normal, both eyes and all related structures Pupils: Equal, round and reactive pupils present Neck: Neck: Yes normal visual inspection Chest: Chest palpation & inspection: normal inspection of the chest Resp: Effort & Inspection: normal respiratory effort Auscultation: clear to auscultation bilaterally Cardio: Rate: regular rate Rhythm: regular rhythm Peripheral pulses: Peripheral pulses 2+ throughout GI: Inspection: Yes normal to inspection Palpation (GI): Soft to palpation and nontender Auscultation: normal bowel sounds Back/Spine/Pelvis: Thoracic/Lumbar Spine: thoracic and lumbar spine normal to inspection Skin: General skin exam: no rashes or lesions noted Neuro: General: patient oriented x3, no focal motor deficits and normal sensation to monofilament Cranial nerves: Yes Equal, round and reactive pupils present Cognition (Neuro): normal cognition Speech: No Abnormal speech present Gait exam (Neuro): Normal gait present Motor exam (neuro): 5/5 motor strength present throughout Extrem: General: Yes normal to inspection Course Course Course Narrative: Time: 19:07 Date: 07/11/25 Provider: Lourdes Da Silva NP Patient placed in physician observation for psychiatric evaluation.? Pending CARE team Reevaluation(s) Reevaluation #1: DR. Rubi's progress note ; 10:15; 07/12/2025. Patient is AAO x3, VSS, no events reported by nursing overnight, under section 12, continue with physician observation, inpatient psych bed is underway. Time: 10:15 Reevaluation #2: DR. Rubi's progress note ; 10:15; 07/13/2025. Patient is AAO x3, VSS, no events reported by nursing overnight, under section 12, continue with physician observation, inpatient psych bed is underway. Time: 07:00 Reevaluation #3: I, Dr. Vega have take over the care of this patient, I reviewed pertinent blood work and imaging, re-evaluated the patient when appropriate. Time: 10:00 Additional Reevaluation(s): Patient has a bed in geriatric unit inpatient Medications Administered Generic Name Dose Route Start Last Admin Trade Name Freq PRN Reason Stop Dose Admin Amlodipine Besylate 2.5 mg 07/12/25 09:00 07/14/25 08:16 Amlodipine Besylate 2.5 Mg Tablet PO 2.5 mg DAILY KAREN Administration Protocol Aspirin 81 mg 07/12/25 09:00 07/14/25 08:16 Aspirin Enteric Coated 81 Mg Tablet. PO 81 mg DAILY KAREN Administration Atorvastatin Calcium 40 mg 07/11/25 21:00 07/13/25 21:53 Atorvastatin Calcium 40 Mg Tablet PO 40 mg BEDTIME KAREN Administration Benztropine Mesylate 1 mg 07/11/25 21:00 07/14/25 08:16 Benztropine Mesylate 1 Mg Tablet PO 1 mg BID KAREN Administration Carbamazepine 200 mg 07/11/25 21:00 07/14/25 08:17 Carbamazepine 200 Mg Tablet PO 200 mg BID KAREN Administration Diazepam 2 mg 07/11/25 21:00 07/14/25 14:05 Diazepam 2 Mg Tablet PO 2 mg TID KAREN Administration Divalproex Sodium 500 mg 07/11/25 21:00 07/14/25 08:16 Divalproex Sodium 500 Mg Tablet. PO 500 mg BID KAREN Administration Ferrous Sulfate 324 mg 07/12/25 09:00 07/14/25 08:16 Ferrous Sulfate 324 Mg Tablet. PO 324 mg DAILY KAREN Administration Omeprazole 20 mg 07/12/25 06:30 07/14/25 06:15 Omeprazole 20 Mg Capsule. PO 20 mg DAILY@0630 KAREN Administration Risperidone 3 mg 07/11/25 21:00 07/14/25 08:16 Risperidone 3 Mg Tablet PO 3 mg BID KAREN Administration Trazodone HCl 100 mg 07/11/25 21:00 07/13/25 21:50 Trazodone Hcl 100 Mg Tablet PO 100 mg BEDTIME KAREN Administration Discontinued Medications Generic Name Dose Route Start Last Admin Trade Name Kailyn PRN Reason Stop Dose Admin Lorazepam 2 mg 07/11/25 12:18 07/11/25 12:21 Lorazepam 1 Mg Tablet PO 07/11/25 12:19 2 mg ONCE ONE Administration Lorazepam 2 mg 07/11/25 18:25 07/11/25 19:24 Lorazepam 1 Mg Tablet PO 07/11/25 18:26 2 mg ONCE ONE Administration Lorazepam 1 mg 07/13/25 04:15 07/13/25 04:22 Lorazepam 1 Mg Tablet PO 07/13/25 04:16 1 mg ONCE ONE Administration Medical Decision Making Medical Decision Making MDM Narrative: 60-year-old male with a history of schizophrenia who presents to the ER with paranoia concern from family that he is not taking his medication or taking care of himself. Patient on arrival is very anxious, pacing, diaphoretic. Patient denies SI/HI/AVH. Denies substance use. Difficult to obtain tangible HPI from patient as he is rambling Patient offered lorazepam p.o. which he accepted Will obtain labs, ABEBE Once medically cleared will need crisis consultation No concern for acute ingestion or trauma Differential Diagnosis Differential Diagnoses: The differential diagnosis associated with the presentation includes Decompensated schizophrenia Admission/Observation Consideration of admission/observation: Escalation of care including admission/observation considered Consult Healthcare Provider Management of the patient was discussed with: Behavioral Health Provider Lab Data MDM Lab Attestation statement: I reviewed the patient's lab results. 07/11/25 15:16 07/11/25 15:16 Labs: Lab Results 07/11/25 07/12/25 07/14/25 Range/Units 15:16 10:11 10:16 WBC 11.6 H (4.8-10.8) X10*3/uL RBC 5.87 H D (4.60-5.80) X10*6/uL Hgb 15.4 D (14.0-18.0) g/dl Hct 46.2 D (42.0-52.0) % MCV 78.7 L (80.0-98.0) fL MCH 26.2 L (27.0-33.0) pg MCHC 33.3 (31.0-36.0) g/dl RDW 15.9 (11.0-16.0) % Plt Count 309 D (160-400) X10*3/uL MPV 10.5 (9.4-12.4) fL Immature Gran % (Auto) 0.3 (0.0-0.4) % Neut % (Auto) 79.0 H (45-73) % Lymph % (Auto) 10.5 L (20-40) % [place] % (Auto) 9.8 (2-11) % Eos % (Auto) 0.2 (0-4) % Baso % (Auto) 0.2 (0-2) % Lymph # (Auto) 1.2 (1.2-4.9) X10*3/uL [place] # (Auto) 1.1 (0.1-1.2) X10*3/uL Eos # (Auto) 0.0 (0.0-0.4) X10*3/uL Baso # (Auto) 0.0 (0.0-0.2) X10*3/uL Abs Immat Gran (auto) 0.03 (0.00-0.03) X10*3/uL Absolute Neuts (auto) 9.2 H (2.0-8.3) x10*3/uL Absolute Nucleated RBC 0.000 (0.0-0.012) X10*3/uL Nucleated RBC % (auto) 0.0 (0.0-0.2) /100WBC Sodium 139 (135-145) mmol/L Potassium 3.7 (3.3-5.1) mmol/L Chloride 102 (96-108) mmol/L Carbon Dioxide 23 (22-29) mmol/L Anion Gap 18 (12-20) BUN 16 (9-16) mg/dL Creatinine 0.67 (0.5-1.4) mg/dL Estim Creat Clear Calc 84.9 Estimated GFR > 60 Random Glucose 106 (60-115) mg/dL Calcium 10.3 H D (8.4-10.2) mg/dL Magnesium 1.8 (1.6-2.6) mg/dL Total Bilirubin 0.5 (0.0-1.0) mg/dL AST 49 H (5-37) U/L ALT 34 (0-40) U/L Alkaline Phosphatase 110 (39-117) U/L Total Protein 9.2 H (6.5-8.0) g/dL Albumin 5.5 H (3.5-5.0) g/dL Urine Color Yellow Urine Appearance Hazy Urine pH 6.0 (5.0-9.0) Ur Specific Miller 1.015 (1.005-1.025) Urine Protein 30 (1+) H (Neg-Trace) mg/dL Urine Glucose (UA) Negative (Negative) mg/dL Urine Ketones 15 (Negative) mg/dL Urine Blood Trace (Negative) Urine Nitrite Negative (Negative) Ur Leukocyte Esterase Small (1+) H (Negative) Urine RBC 0-2 (0-2) /HPF Urine WBC 0-5 (0-5) /HPF Ur Squamous Epith Cells 3-5 (0-2) /HPF Urine Bacteria None Seen (None Seen) Hyaline Casts 0-2 (0-2) /LPF Salicylates < 5.0 L (15-30) mg/dL Urine Opiates Screen Not Detected (Not Detect) Ur Buprenorphine Scrn Not Detected (Not Detect) ng/mL Ur Oxycodone Screen Not Detected (Not Detect) ng/mL Urine Methadone Screen Not Detected (Not Detect) ng/mL Urine Fentanyl Screen Not Detected (Not Detect) Acetaminophen < 3 (<30) mcg/mL Ur Barbiturates Screen Not Detected (Not Detect) Ur Phencyclidine Scrn Not Detected (Not Detect) Ur Amphetamines Screen Not Detected (Not Detect) U Benzodiazepines Scrn POSITIVE H (Not Detect) Urine Cocaine Screen Not Detected (Not Detect) U Marijuana (THC) Screen POSITIVE H (Not Detect) Ethyl Alcohol < 10 mg/dL COVID-19 (VITO) Negative (Negative) COVID-19 Clin Com See Note Independent Historian Clinical information obtained from an independent historian. History obtained from or confirmed by: EMS Discharge Plan Discharge Clinical Impression: Schizoaffective disorder, Major neurocognitive disorder Patient Disposition: Xfer Psychiatric Hosp Transfer Details: [facility] Prescriptions: No Action atorvastatin 40 mg Tablet 40 mg PO BEDTIME Qty: 30 0RF amlodipine 2.5 mg Tablet 2.5 mg PO DAILY Qty: 30 0RF Protocol: Hold for SBP< HOLD for SBP < : 90 divalproex 500 mg Tablet,Delayed Release (Dr/Ec) 500 mg PO BID Qty: 60 0RF aspirin 81 mg Tablet,Delayed Release (Dr/Ec) 81 mg PO DAILY Qty: 30 0RF risperidone 3 mg Tablet 3 mg PO BID Qty: 60 0RF carbamazepine 200 mg Tablet 200 mg PO BID Qty: 60 0RF trazodone 100 mg Tablet 100 mg PO BEDTIME Qty: 30 0RF diazepam 2 mg Tablet 2 mg PO TID Qty: 90 0RF benztropine 1 mg Tablet 1 mg PO BID Qty: 60 0RF omeprazole 20 mg Capsule,Delayed Release(Dr/Ec) 20 mg PO DAILY Qty: 30 0RF albuterol sulfate [Ventolin HFA] 90 mcg/actuation Hfa Aerosol Inhaler 2 puff inhalation Q4H PRN (Reason: Wheezing) Qty: 6.7 0RF ferrous sulfate 324 mg (65 mg iron) Tablet,Delayed Release (Dr/Ec) 324 mg PO DAILY Qty: 30 0RF Interventions: [place]-Suicide Risk Severity Scale Last Done: 07/13/25 19:46 Print Language: Maldivian
--- NOTE | 2025-07-11 14:39 | PC.NURSE ---
pt and family do not know his medications for med rec. called multiple numbers for nurse that may be able to help (provided by family). left message and waiting for call-back
--- NOTE | 2025-07-11 15:21 | MHC.CARE ---
Rodeo Rider left VM for patients legal guardian requesting call back to the CARE Team.
[2025-07-11 15:22] LABS: Hematocrit 46.2 % (42.0-52.0); Hemoglobin 15.4 g/dl (14.0-18.0); Imm Gran Abs Auto 0.03 X10*3/uL (0.00-0.03); Imm Gran Pct Auto 0.3 % (0.0-0.4); Lymphocytes Absolute Auto 1.2 X10*3/uL (1.2-4.9); MANUAL DIFF FLAG NO; Mean Corpuscular HGB Conc 33.3 g/dl (31.0-36.0); Mean Corpuscular Hemoglobin 26.2 pg (27.0-33.0); Mean Corpuscular Volume 78.7 fL (80.0-98.0); NRBC Abs Auto 0.000 X10*3/uL (0.0-0.012); NRBC Pct Auto 0.0 /100WBC (0.0-0.2); Platelet Count 309 X10*3/uL (160-400); Red Blood Count 5.87 X10*6/uL (4.60-5.80); White Blood Count 11.6 X10*3/uL (4.8-10.8)
--- NOTE | 2025-07-11 15:34 | PC.NURSE ---
med rec - received call from Chris visiting nurse ant Ivey. Chris read med list over the phone to this RN and med rec completed with this information.
[2025-07-11 15:40] LABS: Alanine Aminotransferase 34 U/L (0-40); Albumin Level 5.5 g/dL (3.5-5.0); Alkaline Phosphatase 110 U/L (39-117); Anion Gap 18 (12-20); Aspartate Amino Transferase 49 U/L (5-37); Blood Urea Nitrogen 16 mg/dL (9-16); Calcium 10.3 mg/dL (8.4-10.2); Carbon Dioxide 23 mmol/L (22-29); Chloride 102 mmol/L (96-108); Creatinine Clr Calc Pharmacy 84.9; Estimated Glomerular Filt Rate > 60; Magnesium 1.8 mg/dL (1.6-2.6); Potassium 3.7 mmol/L (3.3-5.1); Sodium 139 mmol/L (135-145); Total Protein 9.2 g/dL (6.5-8.0)
[2025-07-11 15:43] LABS: Acetaminophen LAB < 3 mcg/mL (<30); Salicylate < 5.0 mg/dL (15-30)
--- NOTE | 2025-07-11 19:35 | PC.NURSE ---
Patient noted to be anxious, paranoid, tearful, stating that I did not touch that girl . vb developer and this RN attempted to redirect patient with no success. This RN attempted to medicate patient with Lorazepam 2 mg PO, patient spat out 2 tabs of Lorazepam. Patient requested to make a phone call to his brother Aries. Phone call made to [place]. Patient had a brief conversation with his brother on the phone. After speaking with his brother, patient took Lorazepam 2 mg PO with water. Patient continues to present with paranoid behavior, however is redirectable at this time.
--- NOTE | 2025-07-12 | ECG_ITS ---
Test Reason : psych clearance Blood Pressure : */* mmHG Vent. Rate : 112 BPM Atrial Rate : 112 BPM P-R Int : 148 ms QRS Dur : 82 ms QT Int : 346 ms P-R-T Axes : 50 43 50 degrees QTcB Int : 472 ms Sinus tachycardia Possible Inferior infarct (cited on or before 21-Apr-2020) Abnormal ECG When compared with ECG of 20-May-2025 14:21, No significant change was found Referred By: Lourdes Da Silva Electronically Signed By: SHERICE PANG
[2025-07-12 06:35] VITALS: BP 116/76; PULSE 127; RESP 20; O2SAT 96
--- NOTE | 2025-07-12 08:18 | PC.NURSE ---
Addendum entered by Selena Clay RN 07/12/25 08:25: Uche is a 60-year-old individual who appears older than his stated age with a history of paranoia, non-medication compliant and poor self care. His mood and affect are anxious. Speech is muffled and rambling. Insight, judgment, and impulse control are poor, as evidenced by paranoid and fixated thought content centered on repeatedly stating that he ?did not touch any girls.? He is unable to respond appropriately to assessment questions. Uche is observed to have tremors with avoidant eye contact. He is continuously diaphoretic, tremulous and tearful. Leach Cell Operator utilized and patient perseverating and continuously states I did not touch the girl Patient extremely dis-regulated and difficult to re-direct. Does have a guardian and a riley order. Will most likely require a wagner psych admission. Original Note: Medical History Schizoaffective disorder History of hepatitis C CAD (coronary artery disease) (~2019) Chest pain Palpitations Hypertension Hyperlipidemia History of ST elevation myocardial infarction (STEMI) (~2019) COPD (chronic obstructive pulmonary disease) Cough Nicotine dependence, cigarettes, uncomplicated Tubular adenoma BPH (benign prostatic hyperplasia)
[2025-07-12] MEDS: Ferrous Sulfate 324 MG TABLET.DR PO (09:11)
[2025-07-12] MEDS: Aspirin Enteric Coated 81 MG TABLET.DR PO (09:11)
--- NOTE | 2025-07-12 09:23 | PHA.MEDREC ---
Pharmacy Consult ? Medication Reconciliation Pharmacy has reviewed the medication reconciliation completed by nursing. Called and spoke with NEEL (KOBE Perez ) [phone], to confirm medication questions.
[2025-07-12 10:59] LABS: Appearance Urine Hazy; Glucose Urine UA Negative (Negative); PH 6.0 (5.0-9.0); Specific Gravity - Urine 1.015 (1.005-1.025); UMIC TRIGGER UACC YES
[2025-07-12 11:08] LABS: Cannabinoid Screen Urine POSITIVE (Not Detect)
[2025-07-12 11:13] LABS: UACC Culture Trigger YES
--- NOTE | 2025-07-12 16:54 | PC.NURSE ---
Patient continues to pace in the hallway with mumbling speech. Frequent trips to the nursing station noted. Unable to re-direct. Attempted to medicate with no effect.
[2025-07-12 17:18] VITALS: BP 143/56; PULSE 113; RESP 20; TEMP 36.6; O2SAT 98
[2025-07-13 07:01] VITALS: BP 144/68; PULSE 84; RESP 20; TEMP 36.6; O2SAT 98
[2025-07-13] MEDS: Aspirin Enteric Coated 81 MG TABLET.DR PO (08:52)
[2025-07-13] MEDS: Ferrous Sulfate 324 MG TABLET.DR PO (08:52)
--- NOTE | 2025-07-13 10:02 | PC.NURSE ---
assumed care of patient at 0700, patient is awake and alert, walking around unit. patient medicated per MAR, currently calm and cooperative
[2025-07-13 18:29] VITALS: BP 118/66; PULSE 93; RESP 16; TEMP 36.4; O2SAT 99
--- NOTE | 2025-07-13 19:57 | PC.NURSE ---
Assumed care of patient at 1845, patient laying in bed, respirations even and unlabored, calm and cooperative, offering no complaints to this Rn. Continue plan of care for wagner IPLOC
[2025-07-13 23:24] VITALS: RESP 14
[2025-07-14 06:25] VITALS: BP 108/57; PULSE 72; RESP 16; TEMP 36.7; O2SAT 98
[2025-07-14 08:09] VITALS: BP 133/67; PULSE 77; RESP 16; TEMP 36.5; O2SAT 96
[2025-07-14] MEDS: Aspirin Enteric Coated 81 MG TABLET.DR PO (08:16)
[2025-07-14] MEDS: Ferrous Sulfate 324 MG TABLET.DR PO (08:16)
[2025-07-14 10:40] LABS: COVID-19 Test Negative (Negative); IDNOW Serial# 55D5AD1C
--- NOTE | 2025-07-14 12:23 | PC.NURSE ---
Called report to Magdi Pendleton [phone]. Nurse will call when he can come to facility.
--- NOTE | 2025-07-14 15:46 | PC.NURSE ---
patient is tearful during ems warp picker, states he wishes he wasnt going as far away, he does not feel comfortable being far away from his family. interpreter deaf utilized, reassurance given to patient, ems gave patient reasssurance. CARE team involved in patient dc due to patient being upset
== END 2025-07-14 15:49 ==
PROVIDERS: Emergency Provider Emergency Medicine
DX: F22 Delusional disorders (principal); F20.9 Schizophrenia, unspecified; F03.90 Unspecified dementia, unspecified severity, without behavioral disturbance, psychotic disturbance, mood disturbance, and anxiety
CPT/HCPCS: 36415; 80053; 80143; 80179; 80307; 81001; 83735; 85025; 87086; 87635; 93005; 99285; S9485

== ENCOUNTER → 2025-07-12 09:00 | Outpatient (BNV) | payer MEDICAID, SELFPAY | PROVIDERS: Emergency Provider Emergency Medicine; Visit Provider Internal Medicine | DX: R00.0 Tachycardia, unspecified (principal) | CPT/HCPCS: 93010 ==

== ENCOUNTER 2025-09-06 13:53 | Inpatient (IN) | payer MEDICAID, OTHER, SELFPAY ==
--- NOTE | 2025-09-06 | ECG_ITS ---
Test Reason : CHEST PAIN Blood Pressure : */* mmHG Vent. Rate : 119 BPM Atrial Rate : 119 BPM P-R Int : 130 ms QRS Dur : 84 ms QT Int : 338 ms P-R-T Axes : 54 27 19 degrees QTcB Int : 475 ms Sinus tachycardia Inferior infarct (cited on or before 21-Apr-2020) Abnormal ECG When compared with ECG of 12-Jul-2025 09:00, T wave inversion now evident in Inferior leads Referred By: Generic ED Physician Electronically Signed By: LUIS ANTONIO VAUGHN MD
--- NOTE | 2025-09-06 14:12 | ED.PSYCH ---
HPI - Psych General Chief Complaint: Psychiatric Symptoms Stated Complaint: Nervous Time Seen by Provider: 09/06/25 14:12 Source: patient and film critic Mode of arrival: EMS Limitations: no limitations History of Present Illness ED Provider: HPI Narrative: 60-year-old with a history of schizophrenia, anxiety, intellectual delay, presenting to emergency department shaky and reports to be nervous, no suicidal or homicidal ideations reported denies ongoing drug use, and he states that he takes his medications on regular basis Related Data Previous Rx's ?Medication ?Instructions ?Recorded albuterol sulfate 90 mcg/actuation 2 puff inhalation Q4H PRN Wheezing 05/28/25 aerosol inhaler (Ventolin HFA) #6.7 grams amlodipine 2.5 mg tablet 2.5 mg PO DAILY #30 tabs 05/28/25 aspirin 81 mg tablet,delayed 81 mg PO DAILY #30 tabs 05/28/25 release atorvastatin 40 mg tablet 40 mg PO BEDTIME #30 tabs 05/28/25 benztropine 1 mg tablet 1 mg PO BID #60 tabs 05/28/25 carbamazepine 200 mg tablet 200 mg PO BID #60 tabs 05/28/25 diazepam 2 mg tablet 2 mg PO TID #90 tabs 05/28/25 divalproex 500 mg tablet,delayed 500 mg PO BID #60 tabs 05/28/25 release ferrous sulfate 324 mg (65 mg 324 mg PO DAILY #30 tabs 05/28/25 iron) tablet,delayed release omeprazole 20 mg capsule,delayed 20 mg PO DAILY #30 caps 05/28/25 release risperidone 3 mg tablet 3 mg PO BID #60 tabs 05/28/25 trazodone 100 mg tablet 100 mg PO BEDTIME #30 tabs 05/28/25 Allergies Allergy/AdvReac Type Severity Reaction Status Date / Time acetaminophen Allergy Unknown PANADOL = Verified 09/06/25 14:42 ACETAMINOPHEN SHELLFISH Allergy Mild PATIENT Uncoded 09/06/25 14:42 REPORTS BURNING SENSATION THROUGHOUT OPIATES Allergy Unknown BECAME Uncoded 09/06/25 14:42 ADDICTED PANADOL Allergy Unknown UNKNOWN Uncoded 09/06/25 14:42 Review of Systems Constitutional: Constitutional: Reports as per HPI [facility] Past Medical History Medical History Schizoaffective disorder History of hepatitis C CAD (coronary artery disease) (~2019) Chest pain Palpitations Hypertension Hyperlipidemia History of ST elevation myocardial infarction (STEMI) (~2019) COPD (chronic obstructive pulmonary disease) Cough Nicotine dependence, cigarettes, uncomplicated Tubular adenoma BPH (benign prostatic hyperplasia) Surgical History History of heart artery stent (~2019) History of colonoscopy (~2021) History of esophagogastroduodenoscopy (EGD) (~2021) History of right inguinal hernia repair (~2003) History of left inguinal hernia repair (~2007) Family History Family History Father Edema Mother Developmental delay Social History Social History Household Members: Family Housing: Apartment Do you presently have visiting nurse or other home services: Yes Alcohol intake: never Comment: 1:1 Patient Tobacco Use Status: Never used Tobacco Tobacco use type: Cigarette Cigarette Packs Per Day: 1 Cigarettes Per Day: 20.0 Years Smoked: onset 12yo, 1ppd x 44yrs, 40pyh - e-Cigarette/Vaping Use: Never Used Second Hand Smoke Exposure: No Substance Use Type: Marijuana Advance Directives: No Advance Directives Information Provided: Yes Do you have a plan to hurt others: No Plan service: No Current occupational status: disabled Sexual orientation: Straight/Heterosexual Physical Exam Exam: Exam: General: ?Appears slightly older than stated age ? ?PERRLA, EOMI, MMM, ? Neck: Supple, no LAD ? ?CV: RRR, no obvious murmurs appreciated ? ?Resp: ?No wheezing rales rhonchi no stridor moving air well ? Abd: ?Bowel sounds are present, no tenderness no rebound no rigidity ? ?MSK: FROM, strength 5/5 all extremities ? Skin: Warm, dry, intact, ? ?Neuro: ?Alert and oriented x3, moving upper and lower extremities symmetrically, no obvious facial asymmetry noted, cranial nerves 2-12 intact Very shaky, poor eye contact no SI or HI Vital Signs: Vital Signs: Last Vital Signs Temp 98.7 F 09/06/25 14:57 Pulse 120 H 09/06/25 14:57 Resp 18 09/06/25 14:57 BP 148/94 H 09/06/25 14:57 Pulse Ox 97 09/06/25 14:57 O2 Del Method Room Air 09/06/25 14:57 BMI result Body Mass Index 21.0 Medications Administered Discontinued Medications Generic Name Dose Route Start Last Admin Trade Name Kailyn PRN Reason Stop Dose Admin Diazepam 4 mg 09/06/25 14:19 09/06/25 15:17 Diazepam 2 Mg Tablet PO 09/06/25 14:20 4 mg ONCE ONE Administration Medical Decision Making Medical Decision Making MDM Narrative: 2:30 PM 09/06/2025 (Dr. Eron Vega): No SI or HI, denies drug use, denies medication noncompliance however he is visibly shaky with extremely nervous affect we will give p.o. Valium, check his labs does not seem like he has underlying infectious etiology he has got no other symptoms there was no trauma reported and no drug use reported as I mentioned He does have history of neurocognitive disorder, and has a that is decompensated schizophrenia 3:48 PM 09/06/2025 (Dr. Eron Vega): Feel that section 12 with the patient, discussed the patient's presentation of the family, he is not taking his medications actually, has been quite decompensatedTime: 15:49 Date: 09/06/25 Provider: Eron Vega, DO Patient in physician observation for psychiatric evaluation.? Differential Diagnosis Differential Diagnoses: The differential diagnosis associated with the presentation includes (SI, HI, trauma, alcohol use disorder, medication noncompliance) Admission/Observation Consideration of admission/observation: Escalation of care including admission/observation considered Consult Healthcare Provider Management of the patient was discussed with: Behavioral Health Provider Lab Data 09/06/25 14:52 09/06/25 14:52 Labs: Lab Results 09/06/25 Range/Units 14:52 WBC 8.6 (4.8-10.8) X10*3/uL RBC 6.09 H (4.60-5.80) X10*6/uL Hgb 15.9 (14.0-18.0) g/dl Hct 47.9 (42.0-52.0) % MCV 78.7 L (80.0-98.0) fL MCH 26.1 L (27.0-33.0) pg MCHC 33.2 (31.0-36.0) g/dl RDW 19.5 H (11.0-16.0) % Plt Count 184 D (160-400) X10*3/uL MPV 10.7 (9.4-12.4) fL Immature Gran % (Auto) 0.4 (0.0-0.4) % Neut % (Auto) 71.0 (45-73) % Lymph % (Auto) 16.4 L (20-40) % [place] % (Auto) 11.3 H (2-11) % Eos % (Auto) 0.4 (0-4) % Baso % (Auto) 0.5 (0-2) % Lymph # (Auto) 1.4 (1.2-4.9) X10*3/uL [place] # (Auto) 1.0 (0.1-1.2) X10*3/uL Eos # (Auto) 0.0 (0.0-0.4) X10*3/uL Baso # (Auto) 0.0 (0.0-0.2) X10*3/uL Abs Immat Gran (auto) 0.03 (0.00-0.03) X10*3/uL Absolute Neuts (auto) 6.1 (2.0-8.3) x10*3/uL Absolute Nucleated RBC 0.000 (0.0-0.012) X10*3/uL Nucleated RBC % (auto) 0.0 (0.0-0.2) /100WBC Smear Tech's Comments VERIFIED Discharge Plan Discharge Clinical Impression: Schizoaffective disorder, Acute anxiety Prescriptions: No Action atorvastatin 40 mg Tablet 40 mg PO BEDTIME Qty: 30 0RF amlodipine 2.5 mg Tablet 2.5 mg PO DAILY Qty: 30 0RF Protocol: Hold for SBP< HOLD for SBP < : 90 divalproex 500 mg Tablet,Delayed Release (Dr/Ec) 500 mg PO BID Qty: 60 0RF aspirin 81 mg Tablet,Delayed Release (Dr/Ec) 81 mg PO DAILY Qty: 30 0RF risperidone 3 mg Tablet 3 mg PO BID Qty: 60 0RF carbamazepine 200 mg Tablet 200 mg PO BID Qty: 60 0RF trazodone 100 mg Tablet 100 mg PO BEDTIME Qty: 30 0RF diazepam 2 mg Tablet 2 mg PO TID Qty: 90 0RF benztropine 1 mg Tablet 1 mg PO BID Qty: 60 0RF omeprazole 20 mg Capsule,Delayed Release(Dr/Ec) 20 mg PO DAILY Qty: 30 0RF albuterol sulfate [Ventolin HFA] 90 mcg/actuation Hfa Aerosol Inhaler 2 puff inhalation Q4H PRN (Reason: Wheezing) Qty: 6.7 0RF ferrous sulfate 324 mg (65 mg iron) Tablet,Delayed Release (Dr/Ec) 324 mg PO DAILY Qty: 30 0RF Interventions: [place]-Suicide Risk Severity Scale Last Done: 09/06/25 14:45 Print Language: Yakut
[2025-09-06 14:39] VITALS: BP 137/90; PULSE 140; O2SAT 100; BMI 21.0
[2025-09-06 14:57] VITALS: BP 148/94; PULSE 120; RESP 18; TEMP 37.1; O2SAT 97
[2025-09-06 15:00] LABS: Hemoglobin 15.9 g/dl (14.0-18.0); Imm Gran Abs Auto 0.03 X10*3/uL (0.00-0.03); NRBC Abs Auto 0.000 X10*3/uL (0.0-0.012); NRBC Pct Auto 0.0 /100WBC (0.0-0.2); SCAN SMEAR FLAG 1
[2025-09-06 15:02] LABS: Hematocrit 47.9 % (42.0-52.0); Imm Gran Pct Auto 0.4 % (0.0-0.4); Lymphocytes Absolute Auto 1.4 X10*3/uL (1.2-4.9); MANUAL DIFF FLAG SCAN; Mean Corpuscular HGB Conc 33.2 g/dl (31.0-36.0); Mean Corpuscular Hemoglobin 26.1 pg (27.0-33.0); Mean Corpuscular Volume 78.7 fL (80.0-98.0); Red Blood Count 6.09 X10*6/uL (4.60-5.80); White Blood Count 8.6 X10*3/uL (4.8-10.8)
[2025-09-06 15:08] LABS: PLT ABN DIST 1
[2025-09-06 15:29] LABS: Platelet Count 184 X10*3/uL (160-400)
[2025-09-06 16:29] LABS: Alanine Aminotransferase 32 U/L (0-40); Albumin Level 5.0 g/dL (3.5-5.0); Alkaline Phosphatase 69 U/L (39-117); Anion Gap 14 (12-20); Aspartate Amino Transferase 42 U/L (5-37); Blood Urea Nitrogen 17 mg/dL (9-16); Calcium 10.1 mg/dL (8.4-10.2); Carbon Dioxide 24 mmol/L (22-29); Chloride 106 mmol/L (96-108); Creatinine Clr Calc Pharmacy 71.5; Estimated Glomerular Filt Rate > 60; Potassium 3.4 mmol/L (3.3-5.1); Sodium 141 mmol/L (135-145); Total Protein 8.3 g/dL (6.5-8.0)
--- OUTSIDE RECORDS SUMMARY | 2025-09-06 20:02 | XMS_ITS ---
Author Organization [employer] Address [address] [place] [address] Care Team Providers Care Riveting Machine Operator Tape Control Name Role Phone Vivian Portillo ABDULAZIZ Primary Care Provider Brandyn Cesar RN Unavailable [phone] Vee Ayers Unavailable CM Complex Status:Outreach In Progress (Enrolling) Start date:08/26/2025 Enrollment reason:Referred by provider Overview Provider Referral- Please see OV note from 08/19/25. Case Team Name Relationship Phone Brandyn Cesar RN(Responsible Staff) Registered Nurse [phone] Continued Care and Services Coordination
--- OUTSIDE RECORDS SUMMARY | 2025-09-06 20:02 | XMS_ITS | Encounter Summary ---
Author Organization [employer] Address [address] [place] [address] Care Team Providers Care Central Melt Specialist Name Role Phone [place], Vivian [facility] Primary Care Provider [phone] Brandyn Cesar RN Unavailable [phone] Vee Ayers Unavailable Reason for Visit * Reason Onset Date Comments FYI 01/05/2025 Encounter Details Date Type Department Care Team ([facility] st Contact Info) Description 01/05/2025 Telephone [facility] [address] [place], [place] [phone] [place] [facility] [address] [place], [place] [phone] FYI Social History Tobacco Use Types Packs/Day [...] EST Telephone call to Morro BULLOCK ,at [employer] . Morro states the pt fell on [...] 11:00 AM EST Tc from Morro with [employer] stating that Pt fell this morning around 9:30 due to the [place] being slippery. Pt hit himself on his knee but when asked if he was in any pain he said that the Pain was a 2/10 so pt denied any pain medication and did not want to go to the Hospital. Contact Morro at [phone] documented in this encounter Plan of Treatment Upcoming Encounters Date Type Department Care Team (Late st Contact Info) Description 10/18/2025 2:30 PM EST Office Visit [facility] [address] [place] [address] [place] [facility] [address] [place] [address] documented as of this encounter Visit Diagnoses Not on filedocumented in this encounter Additional Health Concerns Assessment Noted Time PHQ-9 Depression Total Score: 0 05/04/20 24 9:15 AM EDT documented as of this encounter Care Teams Central Melt Specialist Relationship Specialty Start Date End Date Vivian Portillo FNP [address] [place] [address] PCP - General Family Medicine 05/15/22 Brandyn Cesar RN [address] [place] [id number] Registered Nurse Family Medicine 08/26/25 Vee Ayers 08/26/25 Kristian Hodge 05/23/24 documented as of this encounter
--- OUTSIDE RECORDS SUMMARY | 2025-09-06 20:02 | XMS_ITS | Clinical Summary ---
Author Organization [employer] Address [address] [place] [address] Care Team Providers Care Electrician Name Role Phone Vivian Portillo TOPOGRAPHICAL SURVEYOR Primary Care Provider [phone] Brandyn Cesar RN Unavailable [phone] Vee Ayers Unavailable Allergies Active Allergy Reactions Criticality Noted Date Comments Acetaminophen 10/25/2022 Codeine 10/25/2022 Shellfish Protein-Containing Drug Products 10/29/2018 Medications * This document contains information received from the source organization and may not represent a complete record from that organization. ipratropium-albu terol (Duo-Neb) 0.5-2.5 mg/3 mL nebulizer solution Inhale 3 mL every 6 (six) hours. Inhale 3 milliliter by nebulization route 4 times every day 2 Active traZODone (Desyrel) 100 MG tablet Take 1 tablet by mouth at bedtime. Active amLODIPine (Norvasc) 2.5 MG tablet Take 1 tablet by mouth 1 (one) time each day. Active ezetimibe (Zetia) 10 MG tablet Take 1 tablet by mouth 1 (one) time each day. Active Multiple Vitamin (Multivitamin Adult) tabletIndication s:Alcohol use disorder in remission Take once daily by mouth 30 tablet 3 3 Active atorvastatin (Lipitor) 40 MG tablet Take 1 tablet by mouth at bedtime. 3 Active albuterol 108 (90 Base) MCG/ACT inhalerIndicatio ns:Shortness of breath Inhale 2 puffs every 6 (six) hours if needed for wheezing. 18 g 11 4 Active metoprolol succinate XL (Toprol-XL) 25 MG 24 hr tabletIndication s:Primary hypertension TAKE 1 TABLET(25 MG) BY MOUTH EVERY DAY IN THE MORNING 90 tablet 4 Active Blood Pressure Monitoring (Omron 3 Series BP Monitor) deviceIndication s:Primary hypertension USE TO CHECK BLOOD PRESSURE EVERY DAY DIRECTED 1 each 4 Active Ascorbic Acid (vitamin C) 250 MG tablet Take 1 tablet by mouth Once per day. 4 Active carBAMazepine (TEGretol) 200 MG tablet Take 1 tablet by mouth 2 times daily. 4 Active famotidine (Pepcid) 20 MG tablet Take 1 tablet by mouth Once per day. 4 Active Artificial Tears 0.2-0.2-1 % solution Apply 1 drop in affected eye(s) every 4 hours as needed for dry eyes 4 Active omeprazole (PriLOSEC) [address] capsuleIndicatio ns:Chronic anemia TAKE 1 CAPSULE BY MOUTH DAILY 90 capsule 3 5 Active Aspirin Low Dose 81 MG EC tabletIndication s:Atherosclerosi s of coronary artery of asa'[place] heart with angina pectoris, unspecified vessel or lesion type TAKE 1 TABLET BY MOUTH EVERY MORNING 90 tablet 1 5 Active diazePAM (Valium) 2 MG tablet Take 1 tablet by mouth in the morning and 1 tablet at noon and 1 tablet in the evening. Active benztropine (Cogentin) 1 MG tablet Take 1 mg by mouth 2 times daily. Active divalproex (Depakote) 500 MG EC tablet Take 1 tablet by mouth 2 times daily. 5 Active FeroSul 325 (65 Fe) MG tablet Take 1 tablet by mouth Once per day. 5 Active risperiDONE (RisperDAL) 1 MG tablet Take 3 tablets by mouth 2 times daily. 5 Active Active Problems Problem Noted Date Diagnosed Date Sebaceous cyst 08/19/2025 Dermoid cyst 06/17/2025 Assessment & Plan (06/17/2025 10:49 AM EDT): On mid back, patient has recurrent pain and drainage Will refer to [facility] Tobacco use disorder 05/04/2024 Dental caries 12/24/2023 Dental calculus 12/24/2023 Periodontal disease 12/24/2023 Dental abscess 12/24/2023 Shortness of breath 10/21/2023 Overview (05/04/2024): Albuterol t.i.d Stopped using symbicort d/t perceived ineffectiveness PFT's from 07/2022 unremarkable for significant restriction or obstruction 04/2023-Initial visit with Dr. Ramirez at [facility] pulmonology. Advised albuterol prn only Alcohol use 04/16/2023 Overview (09/26/2023): Daily multivitamin Folic acid Thiamine supplementation Assessment & Plan (09/26/2023 11:57 AM EST): Denies current alcohol use Hx of intermittent binge drinking patterns Primary hypertension 10/27/2022 Overview (12/15/2022): Metoprolol 25mg XR Amlodipine 2.5mg Hx of STEMI with RCA PCI 04/2020 with 24 hours of AFIB Followed by [facility] cardiology Saw cardiology 09/2022-plan for 5 day Holter and follow up in 3 days 40 pack year smoking hx, is not interested in cessation Assessment & Plan (06/17/2025 11:06 AM EDT): BP is at goal, continue metoprolol and amlodipine Follow-up with PCP Assessment & Plan (09/26/2023 11:55 AM EST): BP well controlled Continue current regimen Follow up as scheduled with cardiology Assessment & Plan (04/16/2023 1:48 PM EDT): BP well controlled Continue current regimen Follow up as scheduled with cardiology Assessment & Plan (12/15/2022 3:08 PM EST): Blood pressure well controlled Continue current regimen Continue daily aspirin 81mg Continue to HOLD brillinta Follow up as scheduled with [facility] Cardiology for review of 5 day holter monitor Assessment & Plan (10/27/2022 10:36 PM EST): Well controlled Continue to follow with [facility] cardiology as scheduled Maintenance: BMP: 06/2022, WNL Lipid Panel: 06/2022, LDL 118, on statin - Aerobic exercise to reduce BP. Initial goal of 30 min walk 3-5x/week. Increase as tolerated. - low-sodium diet (goal: <2g/day) and heart healthy diet such as DASH to reduce BP and prevent ASCVD. - Home BP monitoring 1-2 x day with goal of <140/90. - Seek immediate medical attention for chest pain, palpitations, SOB, syncope, or sudden changes in mental status. - Do not change or discontinue current prescriptions without first consulting health care provider Anemia 10/27/2022 Overview (02/23/2023): PO Ferrous sulfate Hospitalized [facility] 10/2022 with + FOBT and Hgb 8.1. Colonoscopy and endoscopy at this time negative for active bleed Assessment & Plan (07/23/2024 3:13 PM EDT): Hb down to 11.9 during recent hospitalization, remains stable today No need for addtl w/u FU with PCP Assessment & Plan (04/16/2023 1:49 PM EDT): Will repeat labs today Denies current blood in stool Denies current dizziness, weakness, chest pain Pt has not heard regarding previously placed GI referral. Will resubmit referral Assessment & Plan (12/15/2022 3:11 PM EST): Continue oral iron supplementation Repeat blood work today Referral to GI for follow up Assessment & Plan (10/27/2022 10:49 PM EST): F/u pending repeat labs Hepatitis C virus infection without hepatic coma 10/27/2022 Overview (11/03/2023): Followed by [facility] HCV team Completed treatment with mayvret Assessment & Plan (09/26/2023 11:56 AM EST): Complete previously placed orders for test of cure Assessment & Plan (04/16/2023 1:51 PM EDT): Unclear if patient has complete treatment. Will reach out to [facility] team for status check Assessment & Plan (10/27/2022 10:43 PM EST): - It appears patient was lost to f/u w/ GI. Per visit notes previous decision not to tx HCV was d/t concerns re poor compliance.However now that patient is more closely followed by [facility] bilingual patient support caseworker, it is reasonable to reconsider treatment. - Will obtain baseline labwork and refer to [facility] HCV program Healthcare maintenance 10/27/2022 Overview (05/04/2024): C-Scope: 10/2022 polyp removed (benignb) --> repeat 2026 PSA: 06/2022 1.23 Vision Exam: Referred to [facility] eye care 04/2024 Dental Care: UTD through [facility] Immunizations: DECLINES ALL AAA Screening: Routine age [address] screenin12/2022- benign category 2--->will schedule repeat Assessment & Plan (09/26/2023 11:37 AM EST): Message sent to [facility] eye care for status check on vision exam referral. Declines all vaccines Assessment & Plan (10/27/2022 10:48 PM EST): C-Scope: Past screening unknown PSA: 06/2022 1.23 Vision Exam: Discuss at f/u Dental Care: Discuss at f/u Immunizations: Accept flu. Declines COVID booster. Needs PCV 20 AAA Screening: Discuss at f/u Lung CT screening: Discuss at f/u Coronary atherosclerosis 10/22/2022 Assessment & Plan (06/17/2025 11:05 AM EDT): Patient has CAD status post PTCA, seems to have stable angina, advised to take medications as prescribed and given by [facility]. Continue aspirin and metoprolol and ask [facility] workers compensation manager to make sure that he is seen by cardiology within the next 4 to 5 weeks. I discussed with patient importance to call 911 if chest pain does not resolve within 5 minutes or with rest, he agreed with POC Myocardial infarction 10/22/2022 Overview (09/15/2023): inferior ST-elevation myocardial infarction when he had RCA PCI Stented coronary artery 10/22/2022 Intellectual functioning disability 03/31/2018 Schizoaffective disorder, bipolar type (CMS/[facility]) 03/31/2018 Overview (06/17/2025): Significant psychiatric hx with multiple past hospitalizations See psychiatrist (Dr. Ayers) and therapist through [facility] Psychosis currently well managed Patient has a legal guardian (Blair Neumann [phone]) and CM N (Marlyn Bautista [phone]) Assessment & Plan (08/19/2025 4:30 PM EDT): Continue with same medication regimen Continue to follow-up with therapist and psychiatrist Assessment & Plan (06/17/2025 11:08 AM EDT): Doing well, tolerates meds with minimal side effects, except mild sedation and some EP, takes Cogentin, patient seen by Dr. Ayers today Continue carbamazepine and Depakote for now. Will continue on diazepam, we warned about increased sedation and to address this to Dr. Ayers He is to follow-up by Dr. Ayers and Lesa his psychotherapist Discussed with workers compensation manager that medical records can only be released to guardian (will update information in the chart), I will provide AVS. Assessment & Plan (07/23/2024 2:58 PM EDT): No evidence of psychosis at this time, doing well on Risperdal 3 mg TID + Carbamazepine BID + Clonazepam BID. Continue follow up with Dr. Bishop + Counselor. Continue CM by [facility]. Advised Pt to go back to [facility] program, I will write a letter to be sent to program or taken there by an authorized person. Pt feels safe at home. Assessment & Plan (06/03/2024 9:33 AM EDT): During IBH Consult Uche presenting with lack of of focus, disorganized speech, not alert to place.; Uche carries a diagnosis of Schizoaffective Disorder Bipolar type and Intellectual functioning disability for a period of 18+ mo in the context of unable to identify significant stressors. Patients was seeing [facility]. He reports being discharged from [facility]. Not able to identify reason for today's visit. Per his clinic record, Uche is engaged in services with [facility] for individual therapy and psychopharmacology. Reports no hallucinations at this time, denied SI/HI. clinician engaged patient with active, reflective listening. Reviewed and assessed for risk, current stressors and protective factors. For safety reasons, his brother was contacted and able to roller picker Uche from the vaccine center location. His brother, Chris, states that Uche has no reason to be in the clinic today and he will transport him back to his home. No major concerns addressed by his brother and Uche did not have any worry or concern to address at this time. PCP was updated of today's encounter. Recommended to follow-up with sooner medical appointment to evaluate patient. PLAN: (check all that apply) Continue with current services (defined as services in the past 12 months) . Per patient's medical history and self-report, he's connected with [facility] for services including OP individual therapy and Psychopharmacology. Assessment & Plan (10/27/2022 10:32 PM EST): Improved since recent hospitalization Current medications unclear, comprehensive medication rec needed. Will reach out to [facility] for updated med list Follow up as scheduled with [facility] psychiatry and therapy Benign prostatic hyperplasia 09/17/2013 Gastroesophageal reflux disease 05/06/2013 Assessment & Plan (07/23/2024 1:54 PM EDT): Fairly asymptomatic on Pepcid, no change in medications. Hemoglobin is stable, no other evidence of GIB. Pure hypercholesterolemia 04/23/2012 Overview (02/23/2023): Rosuvastatin 10mg daily during treatment for hcv started 01/23/23 then increase to 20mg Assessment & Plan (11/03/2023 11:03 AM EST): STOP statin due to CK elevation Continue zetia Will consult with pharmacy re possible PCSK9-inhibitor as alternative for statin intolerant patient. Pending consult will initiate PA Assessment & Plan (09/26/2023 11:58 AM EST): Rosuvastatin previously held during HCV treatment due to significant liver enzyme elevation. Atorvastatin started by cardiology per recent visit note. Unclear if patient is taking either. Will task RN's to confirm Repeat FLP and CMP Assessment & Plan (04/16/2023 1:56 PM EDT): If patient has completed HV treatment will increase rosuvastatin to 20mg daily Continue ezetimibe 10mg daily Resolved Problems Problem Noted Date Diagnosed Date Resolved Date Strep pharyngitis 01/23/2024 05/04/2024 Onychomycosis 04/17/2018 10/27/2022 Chronic gastritis 04/23/2012 10/27/2022 Chronic obstructive lung disease 04/23/2012 05/04/2024 Overview (11/03/2023): Albuterol t.i.d Stopped using symbicort d/t perceived ineffectiveness PFT's from 07/2022 unremarkable for significant restriction or obstruction 04/2023-Initial visit with Dr. Ramirez at [facility] pulmonology. Advised albuterol prn only Assessment & Plan (09/26/2023 11:54 AM EST): Follow up as scheduled with pulmonology Assessment & Plan (12/15/2022 3:12 PM EST): Continue current regimen Referral placed to pulmonology Assessment & Plan (10/27/2022 10:29 PM EST): - Decreased lung sounds with diffuse wheezing - Past records show multiple inhalers have been prescribed, appears pt only using inhaler - Will obtain PFT's and pending results anticipate pulmonology referral Encounters Date Type Department Care Team Description 09/03/2025 Patient Outreach [facility] [address] [place] [phone] LindseyVivian hernandez FNP Care Coordination (CM/CHW outreach) 08/31/[address] [address] [facility] 08/26/2025 Patient Outreach [address] [phone] [facility] Care Coordination (CHW Chart Review) 08/26/2025 Patient Outreach [address] [address] [facility] Care Management ([facility]- chart review) 08/26/2025 Patient Outreach [address] [address] [facility] 08/19/2025 2:00 PM EDT Office Visit [address] [address] Cammy oCnn MD Sebaceous cyst (Primary Dx); Schizoaffective disorder, bipolar type (CMS/HCC) (HCC) 08/19/2025 Travel 08/11/[address] [address] [facility] pcp form 08/03/[address] [address] Rohini Paulino, PharmD 08/03/[address] [address] Abigail Stokes, ANP chart prep 07/23/2025 Patient Outreach [facility] [address] [place], [place] [phone] [facility] Transition Of Care (Tcm) (HDF unscheduled.) 07/23/[address] [address] [facility] Hospital Follow-up 06/17/2025 10:45 AM EDT Office Visit [address] [address] Mi Friedman MD Schizoaffective disorder, bipolar type (CMS/HCC) (Primary Dx); Atherosclerosis of coronary artery of asa[place] heart with stable angina pectoris, unspecified vessel or lesion type (CMS/HCC); Primary hypertension; Dermoid cyst 06/17/2025 Travel 06/16/2025 Telephone [facility] [address] [place], [place] [phone] [place], [place], [facility] Chart Prep from Last 3 Months Immunizations Immunization Administration Dates Next Due Hep A, Adult 10/16/2001,02/04/2001 Influenza injectable quadriv alent preservative free 10/21/2023,10/23/2018 Influenza, IIV3, injectable 11/01/2014, 1 Influenza, Split (incl. christine fied surface antigen) 08/17/2015,09/01/2013,10/28/2012 Influenza, seasonal, injecta ble, preservative free 10/25/2022,11/06/2017,08/09/2016 Pneumococcal Conjugate PCV 20 01/31/2024 Pneumococcal Polysaccharide PPSV23 11/26/2006 TD (adult), 2 Lf tetanus tox oid, preservative free, adsorbed 12/06/2022,09/11/2005 Tdap 05/19/2013 Social History Tobacco Use Types Packs/Day Years Used Date Smoking Tobacco: Every Day Cigarettes 1 40 Passive Smoke Exposure: Current Smokeless Tobacco: Never Tobacco Cessation:Ready to Q uit: Not Asked; Counseling Given: Not Answered Alcohol Use Standard Drinks/Week Comments Not Currently 0 (1 standard drink = 0.6 oz pur e alcohol) Depression Answer Date Recorded Patient Health Questionnaire-9 Score 9 06/17/2025 Patient Health Questionnaire-9 Score 9 06/17/2025 Last PHQ-9: Questionnaire Data Not on file 0 06/17/2025 Housing Stability Answer Date Recorded What is your housing situation today? I have kaye lr 06/17/[address] you li ve. Do you have problems with any of the following? Pests such as bugs, ants, or mice 06/17/2025 Food Insecurity Answer Date Recorded Within the past 12 months, y ou worried that your food would run out before you got money to buy more: Sometimes True 2024 Within the past 12 months,th e food you bought just didn't last and you didn't have enough money to get more: Sometimes True 06/17/2025 Transportation Answer Date Recorded In the past 12 months, has l ack of transportation kept you from medical appts, meetings, work or from getting things needed for daily living? No 06/17/2025 Utilities Answer Date Recorded In the past 12 months, has t he electric, gas, oil or water company threatened to shut off services in your home? No 06/17/2025 Depression Answer Date Recorded Patient Health Questionnaire-2 Score 2 06/17/2025 Internet Access Answer Date Recorded Internet Access Q1 Yes 06/17/2025 Internet Access Q2 Not on file 06/17/2025 Sex and Gender Information Value Date Recorded Sex Assigned at Male 09/17/2022 10:14 AM EDT Legal Sex Male 10:14 AM EDT Gender Identity Male 09/17/2022 10:14 AM EDT Sexual Orientation Don't know 09/17/2022 10 :14 AM EDT Last Filed Vital Signs Vital Sign Reading Time Taken Comments Blood Pressure 92/64 08/19/2025 1:37 PM EDT Pulse 81 08/19/2025 1:37 PM EDT Temperature 36.4 C (97.5 F) 08/19/2025 1:37 PM EDT Respiratory Rate 15 08/19/2025 1:37 PM EDT Oxygen Saturation 95% 08/19/2025 1:37 PM EDT Inhaled Oxygen Concentration - - Weight 69.9 kg (154 lb) 08/19/2025 1:37 PM EDT Height 154.9 cm (5' 1 ) 08/19/2025 1:37 PM EDT Body Mass Index 29.1 08/19/2025 1:37 PM EDT Plan of Treatment Upcoming Encounters Date Type Department Care Team (Late st Contact Info) Description 10/18/2025 2:30 PM EST Office Visit [facility] [address] [place] [address] [facility] [address] [place] [address] Health Maintenance Due Date Last Done Comments CT Colonography 1967 Dental Oral Exam 1967 Dental Prophylaxis 1967 FIT DNA/Cologuard 1967 FIT 1967 FOBT 1967 Sigmoidoscopy 1967 Alcohol/Substance Use Screening 1979 Hepatitis B Vaccines (1 of 3 - 19+ 3-dose series) 1986 Lung Cancer Screening 2017 Zoster Vaccines (1 of 2) 2017 Dental X-Ray: Bitewings 12/25/2024 12/24/2023, 02/25 COVID-19 Vaccine ( season) 2025 07/06/2022, 06/05/2021, 05/08/2021 Influenza Vaccine (#1) 2025 , 10/25/2022, 10/23/2018, Additional history exists Depression Monitoring 12/18/2025 06/17/2025, 025 Disability Screening 06/17/2026 06/17/2025 SDOH Screening 06/17/2026 06/17/2025 Tobacco Screening 08/19/2026 08/19/2025 Dental X-Ray: Full Mouth 12/25/2026 024, 12/24/2023, 02/26/2012 Colonoscopy 10/18/2027 10/18/2022 Colorectal Cancer Screening 10/18/2027 Lipid Panel 05/29/2029 05/29/2024, 08/20, 12/06/2022, Additional history exists DTaP/Tdap/Td Vaccines (3 - Td or Tdap) 12/06/2032 12/06/2022, 05/19/2013, 09/11/2005 RSV Patients and Patients Aged 60 years or older (1 - 1-dose 75+ series) 2042 Hepatitis A Vaccines Completed 10/16/2001, 02/05/20 01 HIV Screening Completed 12/19/2022, 10/25/2022 Pneumococcal Vaccine: 50+ Years Completed 01/31/2024, 11/26/2006 HIB Vaccines Aged Out No longer eligi ble based on patient's age to complete this topic HPV Vaccines Aged Out No longer eligi ble based on patient's age to complete this topic IPV Vaccines Aged Out No longer eligi ble based on patient's age to complete this topic Meningococcal B Vaccine Aged Out No l onger eligible based on patient's age to complete this topic Meningococcal Vaccine Aged Out No emilio ike eligible based on patient's age to complete this topic RSV under 20 months Aged Out No longe r eligible based on patient's age to complete this topic Rotavirus Vaccines Aged Out No longer eligible based on patient's age to complete this topic Procedures Procedure Name Priority Date/Time Associated Diagnosis Comments LIPID PANEL, STANDARD Routine 05/29/2024 9:24 AM EDT Primary hypertension INTRAORAL - COMPLETE SERIES OF RADIOGRAPHIC IMAGES Routine 12/24/2023 2:00 PM EST Dental caries Dental calculus Periodontal disease Dental abscess HIV 1/2 ANTIGEN/ANTIBODY, FOURTH GENERATION W/RFL Routine 12/19/2022 10:01 AM EST Hepatitis C virus infection without hepatic coma, unspecified chronicity HM COLONOSCOPY Routine 10/18/2022 from Last 3 Months or Most Recently Relevant to Health Maintenance Results * (ABNORMAL) Lipid Panel, Standard (05/29/2024 9:24 AM EDT) Triglycerides 43 <150 mg/dL [facility] Comment:Desirable Triglyceri de: less than 150 mg/dLBorderline High Triglyceride 150-199 mg/dLHigh Triglyceride: 200-499 mg/dLVery High Triglyceride: greater than or equal to 5OO mg/dL Cholesterol 119 <200 mg/dL [facility] Comment:Desirable Cholestero l: less than 200 mg/dLBorderline High Cholesterol: 200-239 mg/dLHigh Cholesterol: greater than 239 mg/dL LDL Cholesterol Calculated 75 <100 mg/dL [facility] Comment:Desirable LDL: less than 100 mg/dLNear Optimal/Above Optimal LDL: 110- 129 mg/dLBorderline High LDL: 130-159 mg/dLHigh LDL: 160-189 mg/dLVery High LDL: greater than or equal to 190 mg/dL HDL Cholesterol 36(L) >40 mg/dL [facility] Comment:Desirable HDL: great er than 40 mg/dL Note: This HDL assay may give artificially low results in patients with liver disease. Blood Venous blood specimen / Unknown 05/29/2024 9:24 AM EDT 05/29/2024 11:06 AM EDT [facility] BLOOD ORDERABLES Final Re sult [facility] [address] [place] [phone] * HIV-1/2 Antigen and Antibodies, Fourth Generation, with Reflexes (12/19/2022 10:01 AM EST) HIV Antigen/Antibody, 4th Generation NON-REAC TIVE NON-REAC TIVE BAC ON TRAC [facility] Comment: HIV-1 antigen and HIV-1/HIV-2 antibodies were not detected. There is no laboratory evidence of HIV infection. PLEASE NOTE: This information has been disclosed to you from records whose confidentiality may be protected by state law. If your state requires such protection, then the state law prohibits you from making any further disclosure of the information without the specific written consent of the person to whom it pertains, or as otherwise permitted by law. A general authorization for the release of medical or other information is NOT sufficient for this purpose. For additional information please refer to http://education.[employer].Nerd Kingdom/faq/OMY796 (This link is being provided for informational/ educational purposes only.) The performance of this assay has not been clinically validated in patients less than 2 years old. Blood Venous blood specimen / Unknown 12/19/2022 10:01 AM EST 12/19/2022 10:01 AM EST Narrative [facility] - 12/25/2022 2:23 PM EST FASTING:YES FASTING: YES [facility] TOPOGRAPHICAL SURVEYOR LAB BLOOD ORDERABLES Final Re sult [facility] [address] [facility], 3rd Fl, [place] [address] BAC ON [facility] [place] [facility] [address], ([address]) [place] [address] * (ABNORMAL) Hm Colonoscopy (10/18/2022) Colonoscopy Abnormal(A ) Normal 10/18/2022 us Historical Provider HEALTH MAINTENANCE Final Result from Last 3 Months or Most Recently Relevant to Health Maintenance Insurance [facility] C3 DENTAL-[facility] MEDICAID STAND ADULT Care Teams Electrician Relationship Specialty Start Date End Date Vivian Portillo, TOPOGRAPHICAL SURVEYOR [address] [facility] [place] [address] PCP - General Family Medicine 05/15/22 Brandyn Cesar, KOBE [address] [place] [address] Registered Nurse Family Medicine 08/26/25 Vee Ayers 08/26/25 Kristian Hodge 05/23/24
--- OUTSIDE RECORDS SUMMARY | 2025-09-06 20:02 | XMS_ITS ---
Author Organization [employer] Address [address] [facility] 7t [place] [address] Care Team Providers Care Storyboard Artist Name Role Phone [place] Vivian CINTRON Primary Care Provider [phone] Brandyn Cesar RN Unavailable [phone] Vee Ayers Unavailable CHW Complex Status:Outreach In Progress (Enrolling) Start date:08/26/2025 Enrollment reason:Referred by provider Overview Provider Referral- Please see OV note from 08/19/25. Please outreach for enrollment. Case Team Name Relationship Phone Vee Ayers(Responsible Staff) [phone] Continued Care and Services Coordination
--- OUTSIDE RECORDS SUMMARY | 2025-09-06 20:02 | XMS_ITS | Encounter Summary ---
Author Organization [employer] Address [address] [facility] 7t [place] [address] Care Team Providers Care Grinder Set Up Operator Internal Name Role Phone [place] [facility] Primary Care Provider [phone] Brandyn Cesar RN Unavailable [phone] Vee Ayers Unavailable Reason for Visit * Reason Onset Date Comments pcp form 08/11/2025 Encounter Details Date Type Department Care Team ([facility] st Contact Info) Description 08/11/2025 Telephone [facility] MEDICINE [address] [place], [place] [phone] [place] Vivian [facility] 230 [place], [place] [phone] pcp form Social History Tobacco Use Types Packs/Day Years [...] encounter Miscellaneous Notes * Telephone Encounter - Joshua Alvarado - 08/11/2025 8:45 AM EDT Tc from [facility] requesting an update on PCP form , if we have received it or it needs to be re faxed. Contact Eulogio at [phone] documented in this encounter Plan of Treatment Upcoming Encounters Date Type Department Care Team (Late st Contact Info) Description 10/18/2025 2:30 PM EST Office Visit [facility] MEDICINE [address] [place] [address] Vivian Portillo FNP 230 [place] [address] documented as of this encounter Visit Diagnoses Not on filedocumented in this encounter Additional Health Concerns Assessment Noted Time PHQ-9 Depression Total Score: 9 06/17/20 25 10:58 AM EDT documented as of this encounter Care Teams Grinder Set Up Operator Internal Relationship Specialty Start Date End Date Vivian Portillo FNP 230 [place] [address] PCP - General Family Medicine 05/15/22 Brandyn Cesar, KOBE [address] [place] [address] Registered Nurse Family Medicine 08/26/25 Vee Ayers 08/26/25 Kristian Hodge 05/23/24 documented as of this encounter
--- OUTSIDE RECORDS SUMMARY | 2025-09-06 20:03 | XMS_ITS | Encounter Summary ---
Author Organization [employer] Address [address] [facility] 7t [place] [address] Care Team Providers Care Evp And Chief Operating Officer Name Role Phone [place], [facility] Primary Care Provider [phone] Brandyn Cesar RN Unavailable [phone] Vee Ayers Unavailable Encounter Details Date Type Department Care Team (Late st Contact Info) Description 11/05/[address] [facility] MEDICINE [address] [place] [address] [place] [facility] 230 [place] [address] Social History Tobacco Use Types Packs/Day Years Used Date Smoking Tobacco: Every Day Cigarettes 1 40 Passive Smoke Exposure: Current Smokeless Tobacco: Never Alcohol Use Standard Drinks/Week Comments Yes 0 (1 standard drink = 0.6 oz pur e alcohol) Depression Answer Date Recorded Patient Health Questionnaire-9 Score 0 02/05/2023 Housing Stability Answer Date Recorded What is your housing situation today? I have kaye lr 09/05/[address] you li ve. Do you have problems with any of the following? None of the above 09/05/2023 Food Insecurity Answer Date Recorded Within the past 12 months, y ou worried that your food would run out before you got money to buy more: Never True 09/05/2023 Within the past 12 months,th e food you bought just didn't last and you didn't have enough money to get more: Never True Transportation Answer Date Recorded In the past 12 months, has l ack of transportation kept you from medical appts, meetings, work or from getting things needed for daily living? No 09/05/2023 Utilities Answer Date Recorded In the past 12 months, has t he electric, gas, oil or water company threatened to shut off services in your home? No 09/05/2023 Depression Answer Date Recorded Patient Health Questionnaire-2 Score 0 02/05/2023 Sex and Gender Information Value Date Recorded Sex Assigned at Male 09/17/2022 10:14 AM EDT Legal Sex Male 10:14 AM EDT Gender Identity Male 09/17/2022 10:14 AM EDT Sexual Orientation Don't know 09/17/2022 10 :14 AM EDT documented as of this encounter Plan of Treatment Upcoming Encounters Date Type Department Care Team (Late st Contact Info) Description 10/18/2025 2:30 PM EST Office Visit [facility] MEDICINE [address] [place] [address] [place] [facility] 230 [place] [address] documented as of this encounter Visit Diagnoses Not on filedocumented in this encounter Additional Health Concerns Assessment Noted Time PHQ-9 Depression Total Score: 0 02/06/20 23 10:22 AM EDT documented as of this encounter Care Teams Evp And Chief Operating Officer Relationship Specialty Start Date End Date Vivian Portillo [facility] 230 [place] [address] PCP - General Family Medicine 05/15/22 Brandyn Cesar, KOBE [address] [place] [address] Registered Nurse Family Medicine 08/26/25 Vee Ayers 08/26/25 Kristian Hodge 05/23/24 documented as of this encounter
--- OUTSIDE RECORDS SUMMARY | 2025-09-06 20:03 | XMS_ITS | Encounter Summary ---
Author Organization [employer] Address [address] [facility] 7t [place] [address] Care Team Providers Care Golf Caddy Name Role Phone [facility] Primary Care Provider [phone] Brandyn Cesar RN Unavailable [phone] Vee Ayers Unavailable Reason for Visit * Reason Comments Care Coordination CM/CHW outreach Encounter Details Date Type Department Care Team (Latest Contact Info) Description 09/03/2025 Patient Outreach [facility] MEDICINE 230 [place], [place] [phone] [place] [facility] 230 [place], [place] [phone] Care Coordination (CM/CHW outreach) Social History Tobacco Use Types Packs/Day Years [...] AM EDT documented as of this encounter Progress Notes * Vee Ayers - 09/03/2025 12:05 PM EDT CHW Vee Ayers place call to [facility] landcare officer through [facility], no answer at this time LVM with details. CHW will reattempt within 5 days. documented in this encounter Plan of Treatment Upcoming Encounters Date Type Department Care Team (Late st Contact Info) Description 10/18/2025 2:30 PM EST Office Visit [facility] MEDICINE 230 [place] [address] Vivian Portillo FNP 230 [place] [address] documented as of this encounter Visit Diagnoses Not on filedocumented in this encounter Additional Health Concerns Assessment Noted Time PHQ-9 Depression Total Score: 9 06/17/20 25 10:58 AM EDT documented as of this encounter Care Teams Golf Caddy Relationship Specialty Start Date End Date Vivian Portillo FNP 230 [place] [address] PCP - General Family Medicine 05/15/22 Brandyn Cesar RN [address] [place] [address] [place] [address] Registered Nurse Family Medicine 08/26/25 Vee Ayers 08/26/25 Kristian Hodge 05/23/24 documented as of this encounter
--- OUTSIDE RECORDS SUMMARY | 2025-09-06 20:03 | XMS_ITS | Encounter Summary ---
Author Organization [employer] Address [address] [facility] 7t [place] [address] Care Team Providers Care Hotel Baggage Handler Name Role Phone [place], [facility] Primary Care Provider [phone] Brandyn Cesar RN Unavailable [phone] Vee Ayers Unavailable Encounter Details Date Type Department Care Team (Late st Contact Info) Description 03/25/2023 Abstract [facility] MEDICINE 230 [place] [address] [place] [facility] 230 [place] [address] Social History Tobacco Use Types Packs/Day Years Used Date Smoking Tobacco: Every Day Cigarettes 1 40 Passive Smoke Exposure: Current Smokeless Tobacco: Never Alcohol Use Standard Drinks/Week Comments Not Currently 0 (1 standard drink = 0.6 oz pur e alcohol) Depression Answer Date Recorded Patient Health Questionnaire-9 Score 0 02/05/2023 Depression Answer Date Recorded Patient Health Questionnaire-2 Score 0 02/05/2023 Sex and Gender Information Value Date Recorded Sex Assigned at Male 09/17/2022 10:14 AM EDT Legal Sex Male 10:14 AM EDT Gender Identity Male 09/17/2022 10:14 AM EDT Sexual Orientation Don't know 09/17/2022 10 :14 AM EDT COVID-19 Exposure Response Date Recorded In the last 10 days, have yo u been in contact with someone who was confirmed or suspected to have Coronavirus/COVID-19? No / Unsure 03/05/2023 3:29 PM EDT documented as of this encounter Plan of Treatment Upcoming Encounters Date Type Department Care Team (Late st Contact Info) Description 10/18/2025 2:30 PM EST Office Visit [facility] MEDICINE 230 [place] [address] Vivian Portillo FNP 230 [place] [address] documented as of this encounter Visit Diagnoses Not on filedocumented in this encounter Additional Health Concerns Assessment Noted Time PHQ-9 Depression Total Score: 0 02/06/20 23 10:22 AM EDT documented as of this encounter Care Teams Hotel Baggage Handler Relationship Specialty Start Date End Date Vivian Portillo FNP 230 [place] [address] PCP - General Family Medicine 05/15/22 Brandyn Cesar RN [address] [place] [address] Registered Nurse Family Medicine 08/26/25 Vee Ayers 08/26/25 Kristian Hodge 05/23/24 documented as of this encounter
--- OUTSIDE RECORDS SUMMARY | 2025-09-06 20:03 | XMS_ITS | Encounter Summary ---
Author Organization [employer] Address [address] [facility] 7t [place] [address] Care Team Providers Care Senior Manager Creative Services Name Role Phone [place], [facility] Primary Care Provider [phone] Brandyn Cesar RN Unavailable Vee Ayers Unavailable Encounter Details Date Type Department Care Team (Late st Contact Info) Description 04/10/2023 Abstract [facility] MEDICINE 230 [place] [address] [place] [facility] 230 [place] [address] Social History Tobacco Use Types Packs/Day Years [...] suspected to have Coronavirus/COVID-19? No / Unsure 04/09/2023 10:02 AM EDT documented as of this encounter Plan of Treatment Upcoming Encounters Date Type Department Care Team (Late st Contact Info) Description 10/18/2025 2:30 PM EST Office Visit [facility] MEDICINE 230 [place] [address] Vivian Portillo FNP [address] [place] [address] documented as of this encounter Visit Diagnoses Not on filedocumented in this encounter Additional Health Concerns Assessment Noted Time PHQ-9 Depression Total Score: 0 02/06/20 23 10:22 AM EDT documented as of this encounter Care Teams Senior Manager Creative Services Relationship Specialty Start Date End Date Vivian Portillo FNP [address] [place] [address] PCP - General Family Medicine 05/15/22 Brandyn Cesar, KOBE [address] [place] [address] Registered Nurse Family Medicine 08/26/25 Vee Ayers 08/26/25 Kristian Hodge 05/23/24 documented as of this encounter
--- OUTSIDE RECORDS SUMMARY | 2025-09-06 20:03 | XMS_ITS | Encounter Summary ---
Author Organization [employer] Address [address] [facility] 7t [place] [address] Care Team Providers Care Fountain Brush Assembler Name Role Phone [facility] Primary Care Provider [phone] Brandyn Cesar RN Unavailable [phone] Vee Ayers Unavailable Encounter Details Date Type Department Care Team ([facility] Contact Info) Description 10/29/2022 [facility] Only [facility] [address] [place] [address] [facility] 230 [place] [address] Social History Tobacco Use Types Packs/Day Years Used Date Smoking Tobacco: Every Day Cigarettes 1 40 Smokeless Tobacco: Never Alcohol Use Standard Drinks/Week Comments Not Currently 0 (1 standard drink = 0.6 oz pur e alcohol) Sex and Gender Information Value Date Recorded [...] suspected to have Coronavirus/COVID-19? No / Unsure 10/25/2022 10:44 AM EST documented as of this encounter Plan of Treatment Upcoming Encounters Date Type Department Care Team (Late Contact Info) Description 10/18/2025 2:30 PM EST Office Visit [facility] MEDICINE 230 [place] [address] Lindsey, Vivian, BEAMSTER [address] [place] [address] documented as of this encounter Procedures Procedure Name Priority Date/Time Associated Diagnosis Comments OBSX1 Routine 10/29/2022 11:56 AM EST COVID-19 ID NOW (BLANK) Routine 10/29/2022 11:55 AM EST VITAMIN B12/FOLATE, SERUM PANEL Routine 10/29/2022 11:53 AM EST IRON AND TOTAL IRON BINDING CAPACITY Routine 10/29/2022 11:53 AM EST TYPE AND SCREEN Routine 10/29/2022 11:53 AM EST CBC WITH AUTO DIFFERENTIAL Routine 10/29/2022 11:25 AM EST PROTHROMBIN TIME-INR Routine 10/29/2022 11:25 AM EST HEPATIC FUNCTION PANEL Routine 10/29/2022 11:25 AM EST BASIC METABOLIC PANEL Routine 10/29/2022 11:25 AM EST documented in this encounter Results * OBSX1 (10/29/2022 11:56 AM EST) OBS1 POSITIVE NEGATIVE [facility] 10/29/2022 11:5 6 AM EST 10/29/2022 11:59 AM EST us [facility] External Provider LAB BLO OD ORDERABLES Final Result [facility] [address] [place] [address] [phone] * COVID-19 ID NOW (BLANK) (10/29/2022 11:55 AM EST) IDNOW SERIAL# [id number] [facility] COVID-19 TEST Negative Negative [facility] COVID-19 NOTE See Note [facility] Comment: Results are for the identification of SARS-CoV2 RNA. TheSARS-CoV2 RNA is generally detectable in respiratory samplesduring the acute phase of infection. Positive results areindicative of the presence of SARS-CoV-2 RNA; clinicalcorrelation with patient history and other diagnosticinformation is necessary to determine patient infectionstatus. Positive results do not rule out bacterial infectionor co- infection with other viruses.Testing facilities within the [facility] and [facility] are required to report all positive results tothe appropriate public health authorities.Negative results should be treated as presumptive and, ifinconsistent with clinical signs and symptoms or necessaryfor patient management, should be tested with differentauthorized or cleared molecular tests. Negative results donot preclude SARS-CoV2 RNA infection and should not be usedas the sole basis for patient management decisions. Negativeresults should be considered in the context of a patient'srecent exposures, history and the presence of clinical signsand symptoms consistent with COVID-19.This test has been authorized by the FDA under an EmergencyUse Authorization (EUA) for use by authorized laboratories.Testing performed on the [employer] NOW utilizing NAAT. 10/29/2022 11:5 5 AM EST 10/29/2022 11:59 AM EST [facility] Exter nal Provider LAB MOLECULAR DIAGNOSTICS ORDERABLES Final Result [facility] [address] [place] [phone] * Type and screen (10/29/2022 11:53 AM EST) Blood Type AP [facility] Antibody Screen NEGATIVE [facility] 10/29/2022 11:5 3 AM EST 10/29/2022 12:05 PM EST [facility] External Provider LAB BLO OD BANK TEST ORDERABLES Final Result Performing Organization Address [facility]/ZIP Co de Phone Number [facility] [address] [place] [address] [phone] * Vitamin B12/Folate, Serum Panel (10/29/2022 11:53 AM EST) Vitamin B12 475 200 - 900 pg/mL [facility] Comment:NORMAL 200-900 PG/ML INDETERMINATE 160-199 PG/ML DEFICIENT < 160 PG/ML Folate 11.1 > or = 4.0 ng/mL [facility] Comment:Reference Values:> o r = 4.0 ng/mL< 4.0 ng/mL suggests folate deficiency Methotrexate, aminopterin and folinic acid(leucovorin) are chemotherapeutic agents whose molecularstructures are similar to folate; therefore, the Architectfolate assay cannot be used for patients using these drugs. 10/29/2022 11:5 3 AM EST 10/29/2022 11:59 AM EST [facility] External Provider LAB BLO OD ORDERABLES Final Result Performing Organization Address [facility] Co de Phone Number [facility] [address] [place] [address] [phone] * (ABNORMAL) Iron And Total Iron Binding Capacity (10/29/2022 11:53 AM EST) Iron 8(L) 45 - 160 mcg/dL [facility] Total Iron Binding Capacity 345 228 - 428 mcg/dL [facility] Percent Iron Saturation 2(L) 15 - 50 % [facility] Unsaturated Iron Binding 337 ug/dL [facility] 10/29/2022 11:5 3 AM EST 10/29/2022 11:59 AM EST [facility] External Provider LAB BLO OD ORDERABLES Final Result Performing Organization Address [facility] Co de Phone Number [facility] [address] [place] [address] [phone] * (ABNORMAL) Basic Metabolic Panel (10/29/2022 11:25 AM EST) Sodium 138 135 - 145 mmol/L [facility] Potassium 3.4 3.3 - 5.1 mmol/L [facility] Chloride 104 96 - 108 mmol/L [facility] Carbon Dioxide 24 22 - 29 mmol/L [facility] Anion Gap 13 12 - 20 [facility] Urea Nitrogen (BUN) 9 9 - 16 mg/dL [facility] Creatinine, Serum 0.75 0.5 - 1.4 mg/dL [facility] Creatinine Clr Calc Pharmacy 89.8 [facility] Comment:eGFR (calculated fro m the MDRD study equation) and eCrCl(calculated from the Cockcroft-Gault equation) are based ondifferent parameters and may not yield comparable results.If eCrCl result is absurd, please check patient'sheight/weight. Estimated Glomerular Filt Rate >60 [facility] Comment:NOTE: For -Am erican individuals, multiply the result by 1.210.Chronic Kidney Disease: Estimated GFR < 60 mL/min/1.16w4Ixmavi Kidney Disease: Estimated GFR < 15 mL/min/1.73m2 Glucose 144(H) 60 - 115 mg/dL [facility] Calcium 9.3 8.4 - 10.2 mg/dL [facility] 10/29/2022 11:2 5 AM EST 10/29/2022 11:32 AM EST us [facility] External Provider LAB BLO OD ORDERABLES Final Result [facility] [address] [place] [address] [phone] * Hepatic Function Panel (10/29/2022 11:25 AM EST) Bilirubin, Total 0.3 0.0 - 1.0 mg/dL [facility] Bilirubin, Direct <0.2 0.0 - 0.5 mg/dL [facility] Aspartate Amino Transferase 22 5 - 37 U/L [facility] Alanine Aminotransferase 24 0 - 40 U/L [facility] Total Protein 7.7 6.5 - 8.0 g/dL [facility] Albumin Level 4.2 3.5 - 5.0 g/dL [facility] Alkaline Phosphatase 86 39 - 117 U/L [facility] 10/29/2022 11:2 5 AM EST 10/29/2022 11:32 AM EST [facility] External Provider LAB BLO OD ORDERABLES Final Result Performing Organization Address [facility] Co de Phone Number [facility] [address] [place] [phone] * (ABNORMAL) Prothrombin Time-INR (10/29/2022 11:25 AM EST) Prothrombin Time 14.5(H) 10.0 - 13.1 SEC [facility] INTERNATIONAL NORM RATIO 1.3(H) 0.9 - 1.1 [facility] Comment:INTERNATIONAL NORMAL IZED RATIO (INR) REFERENCE RANGES Reference RangeFor patients not on anticoagulant therapy: 0.9 - 1.1INR ranges for oral anticoagulanttherapy:For prevention and treatment of venous thrombosis and pulmonary embolism: 2.0 - 3.0For acute myocardial infarction with aspirin therapy: 2.0 - 3.0For acute myocardial infarction without aspirin therapy: 3.0 - 4.0For patients with mechanical prosthetic heart valves: 2.5 - 3.5 10/29/2022 11:2 5 AM EST 10/29/2022 11:32 AM EST [facility] External Provider LAB BLO OD ORDERABLES Final Result Performing Organization Address [facility] de Phone Number [facility] [address] [place] [phone] * (ABNORMAL) CBC auto differential (10/29/2022 11:25 AM EST) White Blood Count 6.4 4.8 - 10.8 X10*3/uL [facility] Red Blood Count 4.53(L) 4.60 - 5.80 X10*6/uL [facility] Hemoglobin 8.1(L) 14.0 - 18.0 g/dl [facility] Hematocrit 28.5(L) 42.0 - 52.0 % [facility] Mean Corpuscular Volume 62.9(L) 80.0 - 98.0 fL [facility] Mean Corpuscular Hemoglobin 17.9(L) 27.0 - 33.0 pg [facility] Mean Corpuscular HGB Conc 28.4(L) 31.0 - 36.0 g/dl [facility] Red Cell Distribution Width 22.2(H) 11.0 - 16.0 % [facility] Platelet Count 562(H) 160 - 400 X10*3/uL [facility] Mean Platelet Volume 9.1(L) 9.4 - 12.4 fL [facility] Neutrophils Percent Auto 79.3(H) 45 - 73 % [facility] Imm Gran Pct Auto 0.5(H) 0.0 - 0.4 % [facility] Lymphocytes Percent Auto 12.1(L) 20 - 40 % [facility] Monocytes Percent Auto 7.1 2 - 11 % [facility] Eosinophils Percent Auto 0.5 0 - 4 % [facility] Basophils Percent Auto 0.5 0 - 2 % [facility] NRBC Pct Auto 0.0 0.0 - 0.2 /100WBC [facility] Neutrophils Absolute Auto 5.1 2.0 - 8.3 x10*3/uL [facility] Imm Gran Abs Auto 0.03 0.00 - 0.03 X10*3/uL [facility] Lymphocytes Absolute Auto 0.8(L) 1.2 - 4.9 X10*3/uL [facility] Monocytes Absolute Auto 0.5 0.1 - 1.2 X10*3/uL [facility] Eosinophils Absolute Auto 0.0 0.0 - 0.4 X10*3/uL [facility] Basophils Absolute Auto 0.0 0.0 - 0.2 X10*3/uL [facility] NRBC Abs Auto 0.000 0.0 - 0.012 X10*3/uL [facility] 10/29/2022 11:2 5 AM EST 10/29/2022 11:32 AM EST us [facility] External Provider LAB BLO OD ORDERABLES Final Result [facility] [address] [place] [address] [phone] documented in this encounter Visit Diagnoses Not on filedocumented in this encounter Care Teams Fountain Brush Assembler Relationship Specialty Start Date End Date Vivian Portillo FNP [address] [place] [address] PCP - General Family Medicine 05/15/22 Brandyn Cesar, KOBE [address] [place] [phone] Registered Nurse Family Medicine 08/26/25 Vee Ayers 08/26/25 Kristian Hodge 05/23/24 documented as of this encounter
--- OUTSIDE RECORDS SUMMARY | 2025-09-06 20:03 | XMS_ITS | Encounter Summary ---
Author Organization [employer] Address [address] [facility] 7t [place] [address] Care Team Providers Care Mobile Mechanic Name Role Phone Vivian Portillo [facility] Primary Care Provider [phone] Brandyn Cesar RN Unavailable [phone] Vee Ayers Unavailable Encounter Details Date Type Department Care Team (Late st Contact Info) Description 12/31/2022 Abstract [facility] [address] [place] [address] [place] [facility] [address] [place] [address] Social History Tobacco Use Types Packs/Day Years [...] suspected to have Coronavirus/COVID-19? No / Unsure 12/06/2022 10:25 AM EST documented as of this encounter Plan of Treatment Upcoming Encounters Date Type Department Care Team (Late st Contact Info) Description 10/18/2025 2:30 PM EST Office Visit [facility] [address] [place] [address] [facility] [address] [place] [address] documented as of this encounter Visit Diagnoses Not on filedocumented in this encounter Care Teams Mobile Mechanic Relationship Specialty Start Date End Date [facility] [address] [place] [address] PCP - General Family Medicine 05/15/22 Brandyn Cesar, KOBE [address] [place] [phone] Registered Nurse Family Medicine 08/26/25 Vee Ayers 08/26/25 Kristian Hodge 05/23/24 documented as of this encounter
--- OUTSIDE RECORDS SUMMARY | 2025-09-06 20:03 | XMS_ITS | Encounter Summary ---
Author Organization [employer] Address [address] [facility] 7t [place] [address] Care Team Providers Care Dynamite Cartridge Crimper Name Role Phone Vivian Portillo [facility] Primary Care Provider [phone] Brandyn Cesar RN Unavailable [phone] Vee Ayers Unavailable Encounter Details Date Type Department Care Team (Late Contact Info) Description 08/12/2023 Telephone [facility] [address] [place] [phone] [place]izVivian hernandez [facility] [address] [place] [address] Social History Tobacco Use Types Packs/Day Years [...] Description 10/18/2025 2:30 PM EST Office Visit [facility] [address] [place] [address] [phone] Vivian Portillo FNP [address] [place] [address] documented as of this encounter Visit Diagnoses Not on filedocumented in this encounter Additional Health Concerns Assessment Noted Time PHQ-9 Depression Total Score: 0 02/06/20 23 10:22 AM EDT documented as of this encounter Care Teams Dynamite Cartridge Crimper Relationship Specialty Start Date End Date Vivian Portillo FNP [address] [place] [address] PCP - General Family Medicine 05/15/22 Brandyn Cesar RN [address] [place] [phone] Registered Nurse Family Medicine 08/26/25 Vee Ayers 08/26/25 Kristian Hodge 05/23/24 documented as of this encounter
[2025-09-06 22:00] VITALS: RESP 18
[2025-09-06 23:53] LABS: Appearance Urine Clear; Glucose Urine UA Negative (Negative); PH 6.0 (5.0-9.0); Specific Gravity - Urine >= 1.030 (1.005-1.025); UMIC TRIGGER UACC YES
[2025-09-07 00:13] LABS: Cannabinoid Screen Urine POSITIVE (Not Detect)
--- NOTE | 2025-09-07 00:17 | PC.NURSE ---
A&Ox4. Presents as calm and cooperative with pleasant affect/clear speech. Spoken to in preferred language, [place] Citizen. Adherent to HS scheduled medications. Mouth checks completed. Hygiene intact. No signs of paranoia observed. 15 minute safety checks ongoing. Plan of care ongoing.
[2025-09-07 06:05] VITALS: BP 135/87; PULSE 109; RESP 17; TEMP 36.6; O2SAT 96
--- NOTE | 2025-09-07 07:20 | PC.NURSE ---
Assumed care, report received. Pt is awake, anxious and continues to ask to go home repeatedly . He is currently eating breakfast.
--- NOTE | 2025-09-07 08:03 | PHA.MEDREC ---
Addendum entered by Jackelyn Johnson RPh 09/07/25 08:24: MED REC REVIEWED BY [facility] Original Note: Pharmacy Consult ? Medication Reconciliation Pharmacy has reviewed the medication reconciliation done by nursing. Claims match med list.
[2025-09-07] MEDS: Aspirin Enteric Coated 81 MG TABLET.DR PO (08:51)
[2025-09-07] MEDS: Ferrous Sulfate 324 MG TABLET.DR PO (08:51)
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
[2025-09-07 11:48] VITALS: BMI 26.3
[2025-09-07 11:52] VITALS: BP 135/78; PULSE 85; RESP 18; TEMP 36.7; O2SAT 99
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
[2025-09-07 20:00] VITALS: BP 134/73; PULSE 83; RESP 16; TEMP 37.1; O2SAT 98
[2025-09-08 07:38] LABS: Ammonia 50 umol/L (13-55)
[2025-09-08 08:14] LABS: Carbamazepine Tegretol 5.8 mcg/mL (5.0-12.0)
[2025-09-08 08:20] VITALS: BP 125/68; PULSE 75; RESP 16; TEMP 36.6; O2SAT 96
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
[2025-09-08 08:28] LABS: Alanine Aminotransferase 36 U/L (0-40); Albumin Level 3.8 g/dL (3.5-5.0); Alkaline Phosphatase 60 U/L (39-117); Anion Gap 11 (12-20); Aspartate Amino Transferase 32 U/L (5-37); Blood Urea Nitrogen 20 mg/dL (9-16); Carbon Dioxide 25 mmol/L (22-29); Chloride 105 mmol/L (96-108); Cholesterol 143 mg/dL (<200); Creatinine Clr Calc Pharmacy 86.3; Estimated Glomerular Filt Rate > 60; HDL Cholesterol 32 mg/dL (>40); Potassium 3.3 mmol/L (3.3-5.1); Sodium 138 mmol/L (135-145); Total Protein 6.3 g/dL (6.5-8.0); Triglycerides 109 mg/dL (<150)
[2025-09-08 08:31] LABS: Free T4 (Free Thyroxine) 1.09 ng/dL (0.71-1.85); Thyroid Stimulating Hormone 1.68 uIU/mL (0.32-4.0)
[2025-09-08 08:41] LABS: Calcium 8.8 mg/dL (8.4-10.2)
[2025-09-08] MEDS: Ferrous Sulfate 324 MG TABLET.DR PO (09:14)
[2025-09-08] MEDS: Aspirin Enteric Coated 81 MG TABLET.DR PO (09:15)
--- NOTE | 2025-09-08 09:17 | P.PNPSI_ITS ---
Subjective Subjective Date of Service: 09/08/25 Reason For Visit: Increased paranoid / pyschosis Subjective Notes: Conditional Voluntary Healthcare Proxy: No Guardianship: Yes Medical Problems Affecting Mental Status: No Interim History: Medical record and nursing notes reviewed; case discussed during rounds with team/nursing staff, and met with patient for supportive therapy/psychoeducation, as well as medication management. Meet with patient in his room with forepart reducer. Patient reports that he slept well last night. Denies nightmaire. Report no issues with appetite. Patient reports feeling better and wants to be discharged home with his mom as he believes mom is at home. Denies SI/SIB/HI/AVH, report medications are helpful. Report depression and anxiety but with medication he feels better. Patient does not remember his , not able to read. Visible, anxious but no intrusive thoughts. Patient says he is always nice to people and that he is not like one of the female peers who was swearing and not nice to staff. Explain to patient that he just admitted yesterday. Need more time to monitor for safety and mental status, and collateral will take time. SW has tried to call his guardian x2,left VM but has not heard from him/her yet. Medication Compliance: Yes Side effects from medications: Yes (mild tremor on bilateral hands but could be at baseline. ) Attending Groups: No (but visible ) Review of Systems Acute medical concerns: No Medical Review of Systems: unchanged Review of Systems Review of Systems Constitutional: Denies fatigue and Denies fever(s) Cardiovascular: Denies chest pain and Denies dyspnea Respiratory: Denies dyspnea Gastrointestinal: Denies abdominal pain Psychiatric: Denies SI Endocrine: Denies fatigue Yes all other systems are reviewed and are negative Mental Status Exam Mental Status Exam Narrative: Patient is A+O, anxious but pleasant and cooperative. Wearing hospital attire. Speech is soft, normal rate. Fair ADL's. Mood is anxious and depressed. Thought process somewhat disorganized,simple and concrete. Report denies SI.. Denies SIB/HI/AVH. Can be paranoid. Poor judgment and insight. Diagnostics Vital Signs (24Hr): Vital Signs - 24 hr 09/07/25 11:52 09/07/25 20:00 09/08/25 08:20 Temperature 98.1 F 98.7 F 97.9 F Pulse Rate 85 83 75 Respiratory Rate 18 16 16 Blood Pressure 135/78 134/73 125/68 Pulse Oximetry 99 98 96 Oxygen Delivery Method Room Air Room Air Room Air BMI result Body Mass Index 26.3 Labs 09/06/25 14:52 09/08/25 07:15 Labs: Laboratory Results - last 48 hr 09/06/25 09/06/25 09/08/25 14:52 23:44 07:14 WBC 8.6 RBC 6.09 H Hgb 15.9 Hct 47.9 MCV 78.7 L MCH 26.1 L MCHC 33.2 RDW 19.5 H Plt Count 184 D MPV 10.7 Immature Gran % (Auto) 0.4 Neut % (Auto) 71.0 Lymph % (Auto) 16.4 L [place] % (Auto) 11.3 H Eos % (Auto) 0.4 Baso % (Auto) 0.5 Lymph # (Auto) 1.4 [place] # (Auto) 1.0 Eos # (Auto) 0.0 Baso # (Auto) 0.0 Abs Immat Gran (auto) 0.03 Absolute Neuts (auto) 6.1 Absolute Nucleated RBC 0.000 Nucleated RBC % (auto) 0.0 Smear Tech's Comments VERIFIED Sodium 141 Potassium 3.4 Chloride 106 Carbon Dioxide 24 Anion Gap 14 BUN 17 H Creatinine 0.83 Estim Creat Clear Calc 71.5 Estimated GFR > 60 Random Glucose 117 H Estimat Average Glucose 103 Hemoglobin A1c % 5.2 Calcium 10.1 Total Bilirubin 0.6 AST 42 H ALT 32 Alkaline Phosphatase 69 Ammonia 50 Total Protein 8.3 H Albumin 5.0 Triglycerides Cholesterol LDL Cholesterol, Calc HDL Cholesterol TSH Free T4 Urine Color Yellow Urine Appearance Clear Urine pH 6.0 Ur Specific [place] >= 1.030 H Urine Protein Trace Urine Glucose (UA) Negative Urine Ketones Negative Urine Blood Trace H Urine Nitrite Negative Ur Leukocyte Esterase Negative Urine RBC 3-5 H Urine WBC 0-5 Ur Squamous Epith Cells 0-2 Urine Bacteria None Seen Hyaline Casts 0-2 Urine Opiates Screen Not Detected Ur Buprenorphine Scrn Not Detected Ur Oxycodone Screen Not Detected Urine Methadone Screen Not Detected Urine Fentanyl Screen Not Detected Ur Barbiturates Screen Not Detected Valproic Acid 77.1 Carbamazepine 5.8 Ur Phencyclidine Scrn Not Detected Ur Amphetamines Screen Not Detected U Benzodiazepines Scrn POSITIVE H Urine Cocaine Screen Not Detected U Marijuana (THC) Screen POSITIVE H Ethyl Alcohol 11 09/08/25 07:15 WBC RBC Hgb Hct MCV MCH MCHC RDW Plt Count MPV Immature Gran % (Auto) Neut % (Auto) Lymph % (Auto) [place] % (Auto) Eos % (Auto) Baso % (Auto) Lymph # (Auto) [place] # (Auto) Eos # (Auto) Baso # (Auto) Abs Immat Gran (auto) Absolute Neuts (auto) Absolute Nucleated RBC Nucleated RBC % (auto) Smear Tech's Comments Sodium 138 Potassium 3.3 Chloride 105 Carbon Dioxide 25 Anion Gap 11 L BUN 20 H Creatinine 0.72 Estim Creat Clear Calc 86.3 Estimated GFR > 60 Random Glucose 104 Estimat Average Glucose Hemoglobin A1c % Calcium 8.8 D Total Bilirubin 0.2 AST 32 ALT 36 Alkaline Phosphatase 60 Ammonia Total Protein 6.3 L Albumin 3.8 Triglycerides 109 Cholesterol 143 LDL Cholesterol, Calc 90 HDL Cholesterol 32 L TSH 1.68 Free T4 1.09 Urine Color Urine Appearance Urine pH Ur Specific [place] Urine Protein Urine Glucose (UA) Urine Ketones Urine Blood Urine Nitrite Ur Leukocyte Esterase Urine RBC Urine WBC Ur Squamous Epith Cells Urine Bacteria Hyaline Casts Urine Opiates Screen Ur Buprenorphine Scrn Ur Oxycodone Screen Urine Methadone Screen Urine Fentanyl Screen Ur Barbiturates Screen Valproic Acid Carbamazepine Ur Phencyclidine Scrn Ur Amphetamines Screen U Benzodiazepines Scrn Urine Cocaine Screen U Marijuana (THC) Screen Ethyl Alcohol Medications Medications Current Medications Acetaminophen (Acetaminophen 325 Mg Tablet) 650 mg PO Q6H PRN PRN Reason: Headache/Pain, Scale 1-10 Al Hydroxide/Mg Hydroxide (Magnesium Hydrox/Alum Hydrox 30 Ml Oral.Susp) 30 ml PO Q6H PRN PRN Reason: Heartburn/Nausea Albuterol Sulfate (Albuterol Sulfate 90 Mcg 8 Gm Inhaler) 2 puff INHALE Q4H PRN PRN Reason: Wheezing Amlodipine Besylate (Amlodipine Besylate 2.5 Mg Tablet) 2.5 mg PO DAILY [facility]; Protocol Last Admin: 09/07/25 08:51 Dose: 2.5 mg Aspirin (Aspirin Enteric Coated 81 Mg Tablet.) 81 mg PO DAILY [facility] Last Admin: 09/07/25 08:51 Dose: 81 mg Atorvastatin Calcium (Atorvastatin Calcium 40 Mg Tablet) 40 mg PO BEDTIME [facility] Last Admin: 09/07/25 20:15 Dose: 40 mg Benztropine Mesylate (Benztropine Mesylate 1 Mg Tablet) 1 mg PO BEDTIME [facility] Last Admin: 09/07/25 20:15 Dose: 1 mg Carbamazepine (Carbamazepine 200 Mg Tablet) 200 mg PO BID [facility] Last Admin: 09/07/25 20:15 Dose: 200 mg Diazepam (Diazepam 2 Mg Tablet) 2 mg PO TID [facility] Last Admin: 09/07/25 20:15 Dose: 2 mg Divalproex Sodium (Divalproex Sodium 500 Mg Tablet.) 500 mg PO BID [facility] Last Admin: 09/07/25 20:15 Dose: 500 mg Ferrous Sulfate (Ferrous Sulfate 324 Mg Tablet.) 324 mg PO DAILY [facility] Last Admin: 09/07/25 08:51 Dose: 324 mg Hydroxyzine HCl (Hydroxyzine Hcl 25 Mg Tablet) 25 mg PO Q6H PRN PRN Reason: mild anxiety Last Admin: 09/07/25 11:58 Dose: 25 mg Magnesium Hydroxide (Milk Of Magnesia 30 Ml Oral.Susp) 30 ml PO DAILY PRN PRN Reason: Constipation Nicotine (Nicotine 21 Mg Patch.Td24) 21 mg TRANSDERMA DAILY PRN PRN Reason: nicotine craving Nicotine Polacrilex (Nicotine Polacrilex 2 Mg Gum) 2 mg BUCCAL Q2H PRN PRN Reason: Nicotine Cravings Omeprazole (Omeprazole 20 Mg Capsule.) 20 mg PO DAILY@0630 [facility] Last Admin: 09/08/25 06:06 Dose: 20 mg Risperidone (Risperidone 3 Mg Tablet) 3 mg PO BID [facility] Last Admin: 09/07/25 20:15 Dose: 3 mg Trazodone HCl (Trazodone Hcl 100 Mg Tablet) 100 mg PO BEDTIME [facility] Last Admin: 09/07/25 20:15 Dose: 100 mg Trazodone HCl (Trazodone Hcl 50 Mg Tablet) 50 mg PO BEDTIME MRX1 PRN PRN Reason: Insomnia Allergies Allergies Allergy/AdvReac Type Severity Reaction Status Date / Time acetaminophen Allergy Unknown PANADOL = Verified 09/06/25 14:42 ACETAMINOPHEN SHELLFISH Allergy Mild PATIENT Uncoded 09/06/25 14:42 REPORTS BURNING SENSATION THROUGHOUT OPIATES Allergy Unknown BECAME Uncoded 09/06/25 14:42 ADDICTED PANADOL Allergy Unknown UNKNOWN Uncoded 09/06/25 14:42 Assessment & Plan Assessment & Plan (1) Schizoaffective disorder: Qualifiers: Schizoaffective disorder type: unspecified Qualified Code(s): F25.9 - Schizoaffective disorder, unspecified Status: Acute Code(s): F25.9 - Schizoaffective disorder, unspecified (2) Hypertension: Status: Acute Code(s): I10 - Essential (primary) hypertension (3) CAD (coronary artery disease): Status: Acute Code(s): I25.10 - Atherosclerotic heart disease of [place] coronary artery without angina pectoris (4) Hyperlipidemia: Status: Acute Code(s): E78.5 - Hyperlipidemia, unspecified (5) BPH (benign prostatic hyperplasia): Status: Acute Code(s): N40.0 - Benign prostatic hyperplasia without lower urinary tract symptoms Plan HPI: patient is a 60 year old, Lithuanian speaking male, with PMH of intellectual delay, schizoaffective disorder, COPD, CAD, HTN, HLD, Hep C, BPH, Nicotine dependence, STEMI post cardiac catheterization and stent placement who was BIBA secondary to complaints of chest pain and anxiety. Hx of multiple inpatient admissions triggered by increased paranoid and episode of confusion.Most recent [facility] admission was in [place] on 07/13/25 with similar symptoms. Family believes patient is non compliant with meds. Formulation/clinical reasoning: increased anxiety and depression, increased paranoid thoughts. Poor ADL's, appetite, and sleeping. Non compliant with meds. Mom is in Hospice is another contributing factor. Question if medication compliant and decompensated. Hx of schizoaffective D/O with other medication condition. Patient would benefit in restrictive environment for safety, medication management, and refer patient to OP psychiatric services for aftercare. Hospital course: 09/07/25: Re-start all home meds Check Tegrotol, VPA, prolactin, and Ammonia levels Risperidone 3mg BID for pschosis Depakote 500mg BID for mood Tegretol 100mg BID Cogentin 1mg at HS Valium 2mg BID. Medication for cardiac conditions. 09/08/25: Meet with patient in his room with forepart reducer. Patient reports that he slept well last night. Denies nightmare. Report no issues with appetite. Patient reports feeling better and wants to be discharged home with his mom as he believes mom is at home. Denies SI/SIB/HI/AVH, report medications are helpful. Report depression and anxiety but with medication he feels better. Patient does not remember his , not able to read. Visible, anxious but no intrusive thoughts. Patient says he is always nice to people and that he is not like one of the female peers who was swearing and not nice to staff. Explain to patient that he just admitted yesterday. Need more time to monitor for safety and mental status, and collateral will take time. SW has tried to call his guardian x2,left VM but has not heard from him/her yet. Plan Patient on 15 minute checks for safety. Admitted to S1. CV. Lab works Diagnostic as needed Work with treatment team to do collateral 09/08/25: VPA 77.1. Tegretol level 5.8: WNL/therapeutic. Pending prolactine Hypertension/hyperlipidemia/CAD, history of [place] and stent 2019. Continue aspirin, amlodipine, atorvastatin Blood pressures have been stable, labs reviewed and stable BPH Monitor voiding pattern. Bladder scan if patient has evidence of retention. Patient educated on: diagnosis, medication risk/benefits and therapeutic strategies Informed Consent: further education needed Reason for continued inpatient stay Substantial Risk for: med/psych decompensation Time Spent With Patient Time: Total time managing care of this patient today ____ minutes.
--- NOTE | 2025-09-08 12:13 | MHC.CLN ---
NUTRITION REVIEW OF WEIGHT HX SHOWS 14#, -9% WEIGHT LOSS X 4 MONTHS. CURRENT PO INTAKE APPEARS GOOD. NO ADDITIONAL NUTRITION INTERVENTIONS AT THIS TIME.
[2025-09-08 19:44] VITALS: BP 126/75; PULSE 77; RESP 16; TEMP 37.2; O2SAT 99
[2025-09-09 07:00] VITALS: BMI 27.3
[2025-09-09 08:00] VITALS: BP 140/79; PULSE 74; RESP 16; TEMP 37.1; O2SAT 96
[2025-09-09] MEDS: Aspirin Enteric Coated 81 MG TABLET.DR PO (08:20)
[2025-09-09] MEDS: Ferrous Sulfate 324 MG TABLET.DR PO (08:21)
--- NOTE | 2025-09-09 13:33 | P.PNPSI_ITS ---
Subjective Subjective Date of Service: 09/09/25 Reason For Visit: Increased paranoid / pyschosis Subjective Notes: Conditional Voluntary and 3 Day Medical Problems Affecting Mental Status: No Interim History: Patient found lying in his bed. He reports mild depression. Denies anxiety. Denies SI/HI/AVH. He repeatedly expresses desire to go home to his brother so he can see his mother who is ill. He states that he misses his mother. No behavioral symptoms. In-person sock lining examiner utilized. Medication Compliance: Yes Side effects from medications: No Review of Systems Acute medical concerns: No Mental Status Exam Mental Status Exam Narrative: Appearance: Casually dressed, adequate hygiene Behavior: Calm and cooperative throughout the interview. Eye contact is appropriate, and there are no signs of psychomotor agitation or retardation Speech: Salt with normal rate Thought process: Somewhat disorganized Thought content: Wants to go home Mood: Depressed Affect: Flat SI:denies HI:denies VH/AH:none Delusions: Possible paranoia Insight/judgment: Impaired insight and judgment Memory/cog: Alert and oriented to person and place Diagnostics Vital Signs (24Hr): Vital Signs - 24 hr 09/08/25 19:44 09/09/25 08:00 Temperature 99 F 98.7 F Pulse Rate 77 74 Respiratory Rate 16 16 Blood Pressure 126/75 140/79 H Pulse Oximetry 99 96 Oxygen Delivery Method Room Air BMI result Body Mass Index 26.3 Labs 09/06/25 14:52 09/08/25 07:15 Labs: Laboratory Results - last 48 hr 09/08/25 09/08/25 07:14 07:15 Sodium 138 Potassium 3.3 Chloride 105 Carbon Dioxide 25 Anion Gap 11 L BUN 20 H Creatinine 0.72 Estim Creat Clear Calc 86.3 Estimated GFR > 60 Random Glucose 104 Estimat Average Glucose 103 Hemoglobin A1c % 5.2 Calcium 8.8 D Total Bilirubin 0.2 AST 32 ALT 36 Alkaline Phosphatase 60 Ammonia 50 Total Protein 6.3 L Albumin 3.8 Triglycerides 109 Cholesterol 143 LDL Cholesterol, Calc 90 HDL Cholesterol 32 L TSH 1.68 Free T4 1.09 Prolactin 14.7 Valproic Acid 77.1 Carbamazepine 5.8 Medications Medications Current Medications Acetaminophen (Acetaminophen 325 Mg Tablet) 650 mg PO Q6H PRN PRN Reason: Headache/Pain, Scale 1-10 Al Hydroxide/Mg Hydroxide (Magnesium Hydrox/Alum Hydrox 30 Ml Oral.Susp) 30 ml PO Q6H PRN PRN Reason: Heartburn/Nausea Albuterol Sulfate (Albuterol Sulfate 90 Mcg 8 Gm Inhaler) 2 puff INHALE Q4H PRN PRN Reason: Wheezing Amlodipine Besylate (Amlodipine Besylate 2.5 Mg Tablet) 2.5 mg PO DAILY [facility]; Protocol Last Admin: 09/09/25 08:21 Dose: 2.5 mg Aspirin (Aspirin Enteric Coated 81 Mg Tablet.) 81 mg PO DAILY [facility] Last Admin: 09/09/25 08:20 Dose: 81 mg Atorvastatin Calcium (Atorvastatin Calcium 40 Mg Tablet) 40 mg PO BEDTIME [facility] Last Admin: 09/08/25 20:50 Dose: 40 mg Benztropine Mesylate (Benztropine Mesylate 1 Mg Tablet) 1 mg PO BEDTIME [facility] Last Admin: 09/08/25 20:50 Dose: 1 mg Carbamazepine (Carbamazepine 200 Mg Tablet) 200 mg PO BID [facility] Last Admin: 09/09/25 08:22 Dose: 200 mg Diazepam (Diazepam 2 Mg Tablet) 2 mg PO TID [facility] Last Admin: 09/09/25 08:21 Dose: 2 mg Divalproex Sodium (Divalproex Sodium 500 Mg Tablet.) 500 mg PO BID [facility] Last Admin: 09/09/25 08:21 Dose: 500 mg Ferrous Sulfate (Ferrous Sulfate 324 Mg Tablet.) 324 mg PO DAILY [facility] Last Admin: 09/09/25 08:21 Dose: 324 mg Hydroxyzine HCl (Hydroxyzine Hcl 25 Mg Tablet) 25 mg PO Q6H PRN PRN Reason: mild anxiety Last Admin: 09/07/25 11:58 Dose: 25 mg Magnesium Hydroxide (Milk Of Magnesia 30 Ml Oral.Susp) 30 ml PO DAILY PRN PRN Reason: Constipation Nicotine (Nicotine 21 Mg Patch.Td24) 21 mg TRANSDERMA DAILY PRN PRN Reason: nicotine craving Nicotine Polacrilex (Nicotine Polacrilex 2 Mg Gum) 2 mg BUCCAL Q2H PRN PRN Reason: Nicotine Cravings Omeprazole (Omeprazole 20 Mg Capsule.) 20 mg PO DAILY@0630 [facility] Last Admin: 09/09/25 05:52 Dose: 20 mg Risperidone (Risperidone 3 Mg Tablet) 3 mg PO BID [facility] Last Admin: 09/09/25 08:21 Dose: 3 mg Trazodone HCl (Trazodone Hcl 100 Mg Tablet) 100 mg PO BEDTIME [facility] Last Admin: 09/08/25 20:50 Dose: 100 mg Trazodone HCl (Trazodone Hcl 50 Mg Tablet) 50 mg PO BEDTIME MRX1 PRN PRN Reason: Insomnia Allergies Allergies Allergy/AdvReac Type Severity Reaction Status Date / Time acetaminophen Allergy Unknown PANADOL = Verified 09/06/25 14:42 ACETAMINOPHEN SHELLFISH Allergy Mild PATIENT Uncoded 09/06/25 14:42 REPORTS BURNING SENSATION THROUGHOUT OPIATES Allergy Unknown BECAME Uncoded 09/06/25 14:42 ADDICTED PANADOL Allergy Unknown UNKNOWN Uncoded 09/06/25 14:42 Assessment & Plan Assessment & Plan (1) Schizoaffective disorder: Qualifiers: Schizoaffective disorder type: unspecified Qualified Code(s): F25.9 - Schizoaffective disorder, unspecified Status: Acute Code(s): F25.9 - Schizoaffective disorder, unspecified (2) Hypertension: Status: Acute Code(s): I10 - Essential (primary) hypertension (3) CAD (coronary artery disease): Status: Acute Code(s): I25.10 - Atherosclerotic heart disease of [place] coronary artery without angina pectoris (4) Hyperlipidemia: Status: Acute Code(s): E78.5 - Hyperlipidemia, unspecified (5) BPH (benign prostatic hyperplasia): Status: Acute Code(s): N40.0 - Benign prostatic hyperplasia without lower urinary tract symptoms Plan HPI: patient is a 60 year old, Italian speaking male, with PMH of intellectual delay, schizoaffective disorder, COPD, CAD, HTN, HLD, Hep C, BPH, Nicotine dependence, STEMI post cardiac catheterization and stent placement who was BIBA secondary to complaints of chest pain and anxiety. Hx of multiple inpatient admissions triggered by increased paranoid and episode of confusion.Most recent [facility] admission was in [place] on 07/13/25 with similar symptoms. Family believes patient is non compliant with meds. Formulation/clinical reasoning: increased anxiety and depression, increased paranoid thoughts. Poor ADL's, appetite, and sleeping. Non compliant with meds. Mom is in Hospice is another contributing factor. Question if medication compliant and decompensated. Hx of schizoaffective D/O with other medication condition. Patient would benefit in restrictive environment for safety, medication management, and refer patient to OP psychiatric services for aftercare. Hospital course: 09/07/25: Re-start all home meds Check Tegrotol, VPA, prolactin, and Ammonia levels Risperidone 3mg BID for pschosis Depakote 500mg BID for mood Tegretol 100mg BID Cogentin 1mg at HS Valium 2mg BID. Medication for cardiac conditions. 09/08/25: Meet with patient in his room with bankruptcy paralegal. Patient reports that he slept well last night. Denies nightmare. Report no issues with appetite. Patient reports feeling better and wants to be discharged home with his mom as he believes mom is at home. Denies SI/SIB/HI/AVH, report medications are helpful. Report depression and anxiety but with medication he feels better. Patient does not remember his , not able to read. Visible, anxious but no intrusive thoughts. Patient says he is always nice to people and that he is not like one of the female peers who was swearing and not nice to staff. Explain to patient that he just admitted yesterday. Need more time to monitor for safety and mental status, and collateral will take time. SW has tried to call his guardian x2,left VM but has not heard from him/her yet. 09/09: Continue current treatment regimen. He signed a 3 day notice which will next Saturday. SW trying to reach and obtain collateral from guardian. Plan Patient on 15 minute checks for safety. Admitted to S1. CV. Lab works Diagnostic as needed Work with treatment team to do collateral 09/08/25: VPA 77.1. Tegretol level 5.8: WNL/therapeutic. Pending prolactine Hypertension/hyperlipidemia/CAD, history of [place] and stent 2019. Continue aspirin, amlodipine, atorvastatin Blood pressures have been stable, labs reviewed and stable BPH Monitor voiding pattern. Bladder scan if patient has evidence of retention. Patient educated on: therapeutic strategies Reason for continued inpatient stay Substantial Risk for: rapid decompensation Time Spent With Patient Time: Total time managing care of this patient today ____ minutes.
[2025-09-09 20:00] VITALS: BP 155/73; PULSE 87; RESP 16; TEMP 37; O2SAT 99
[2025-09-10 08:34] VITALS: BP 128/82; PULSE 91; RESP 16; TEMP 36.6; O2SAT 98
[2025-09-10] MEDS: Ferrous Sulfate 324 MG TABLET.DR PO (08:35)
[2025-09-10] MEDS: Aspirin Enteric Coated 81 MG TABLET.DR PO (08:35)
--- NOTE | 2025-09-10 09:55 | HO.PSYCHPN ---
Subjective Subjective Date of Service: 09/10/25 Reason For Visit: Increased paranoid / pyschosis Subjective Notes: 3 Day Guardianship: Yes Medical Problems Affecting Mental Status: No Interim History: Medical record and nursing notes reviewed; case discussed during rounds with team/nursing staff, and met with patient for supportive therapy/psychoeducation, as well as medication management. Patient slept well, compliant with medications, visible in common areas, attended groups. Perseverative on discharge. Met with patient with the full time staff interpreter, reports no safety concerns. Tremors on bilateral hands was improved. Patient signed 3 day notice which is up next week on Saturday. youth care worker able to contact his brother, who will pick patient up by 09:00. Continued to contact to make sure patient have manager rn case and psychiatrist appointment upon discharge. Per social media intern notes, patient's legal guardian is very ill at this current time. Medication Compliance: Yes Side effects from medications: No Attending Groups: Intermittent Review of Systems Acute medical concerns: No Medical Review of Systems: unchanged Review of Systems Review of Systems Constitutional: Denies fatigue and Denies fever(s) Cardiovascular: Denies chest pain and Denies dyspnea Respiratory: Denies dyspnea Gastrointestinal: Denies abdominal pain Psychiatric: Denies SI Endocrine: Denies fatigue Yes all other systems are reviewed and are negative Mental Status Exam Mental Status Exam Narrative: Appearance: Casually dressed, adequate hygiene Behavior: Calm and cooperative throughout the interview. Eye contact is appropriate, and there are no signs of psychomotor agitation or retardation Speech: normal rate Thought process: Somewhat disorganized- could be at baseline Thought content: Wants to go home Mood: Depressed Affect: Flat SI:denies HI:denies VH/AH:none Delusions: No paranoia. Insight/judgment: Impaired at baseline insight and judgment Memory/cog: Alert and oriented to person and place Diagnostics Vital Signs (24Hr): Vital Signs - 24 hr 09/09/25 20:00 09/10/25 08:34 Temperature 98.6 F 97.9 F Pulse Rate 87 91 Respiratory Rate 16 16 Blood Pressure 155/73 H 128/82 Pulse Oximetry 99 98 Oxygen Delivery Method Room Air Room Air BMI result Body Mass Index 27.3 Labs 09/06/25 14:52 09/08/25 07:15 Labs: Laboratory Results - last 48 hr 09/08/25 07:14 Prolactin 14.7 Medications Medications Current Medications Acetaminophen (Acetaminophen 325 Mg Tablet) 650 mg PO Q6H PRN PRN Reason: Headache/Pain, Scale 1-10 Al Hydroxide/Mg Hydroxide (Magnesium Hydrox/Alum Hydrox 30 Ml Oral.Susp) 30 ml PO Q6H PRN PRN Reason: Heartburn/Nausea Albuterol Sulfate (Albuterol Sulfate 90 Mcg 8 Gm Inhaler) 2 puff INHALE Q4H PRN PRN Reason: Wheezing Amlodipine Besylate (Amlodipine Besylate 2.5 Mg Tablet) 2.5 mg PO DAILY [facility]; Protocol Last Admin: 09/10/25 08:35 Dose: 2.5 mg Aspirin (Aspirin Enteric Coated 81 Mg Tablet.) 81 mg PO DAILY [facility] Last Admin: 09/10/25 08:35 Dose: 81 mg Atorvastatin Calcium (Atorvastatin Calcium 40 Mg Tablet) 40 mg PO BEDTIME [facility] Last Admin: 09/09/25 20:24 Dose: 40 mg Benztropine Mesylate (Benztropine Mesylate 1 Mg Tablet) 1 mg PO BEDTIME [facility] Last Admin: 09/09/25 20:24 Dose: 1 mg Carbamazepine (Carbamazepine 200 Mg Tablet) 200 mg PO BID [facility] Last Admin: 09/10/25 08:35 Dose: 200 mg Diazepam (Diazepam 2 Mg Tablet) 2 mg PO TID [facility] Last Admin: 09/10/25 08:35 Dose: 2 mg Divalproex Sodium (Divalproex Sodium 500 Mg Tablet.) 500 mg PO BID [facility] Last Admin: 09/10/25 08:35 Dose: 500 mg Ferrous Sulfate (Ferrous Sulfate 324 Mg Tablet.) 324 mg PO DAILY [facility] Last Admin: 09/10/25 08:35 Dose: 324 mg Hydroxyzine HCl (Hydroxyzine Hcl 25 Mg Tablet) 25 mg PO Q6H PRN PRN Reason: mild anxiety Last Admin: 09/07/25 11:58 Dose: 25 mg Magnesium Hydroxide (Milk Of Magnesia 30 Ml Oral.Susp) 30 ml PO DAILY PRN PRN Reason: Constipation Nicotine (Nicotine 21 Mg Patch.Td24) 21 mg TRANSDERMA DAILY PRN PRN Reason: nicotine craving Nicotine Polacrilex (Nicotine Polacrilex 2 Mg Gum) 2 mg BUCCAL Q2H PRN PRN Reason: Nicotine Cravings Omeprazole (Omeprazole 20 Mg Capsule.) 20 mg PO DAILY@0630 [facility] Last Admin: 09/10/25 06:10 Dose: 20 mg Risperidone (Risperidone 3 Mg Tablet) 3 mg PO BID [facility] Last Admin: 09/10/25 08:35 Dose: 3 mg Trazodone HCl (Trazodone Hcl 100 Mg Tablet) 100 mg PO BEDTIME [facility] Last Admin: 09/09/25 20:24 Dose: 100 mg Trazodone HCl (Trazodone Hcl 50 Mg Tablet) 50 mg PO BEDTIME MRX1 PRN PRN Reason: Insomnia Allergies Allergies Allergy/AdvReac Type Severity Reaction Status Date / Time acetaminophen Allergy Unknown PANADOL = Verified 09/06/25 14:42 ACETAMINOPHEN SHELLFISH Allergy Mild PATIENT Uncoded 09/06/25 14:42 REPORTS BURNING SENSATION THROUGHOUT OPIATES Allergy Unknown BECAME Uncoded 09/06/25 14:42 ADDICTED PANADOL Allergy Unknown UNKNOWN Uncoded 09/06/25 14:42 Assessment & Plan Assessment & Plan (1) Schizoaffective disorder: Qualifiers: Schizoaffective disorder type: unspecified Qualified Code(s): F25.9 - Schizoaffective disorder, unspecified Status: Acute Code(s): F25.9 - Schizoaffective disorder, unspecified (2) Hypertension: Status: Acute Code(s): I10 - Essential (primary) hypertension (3) CAD (coronary artery disease): Status: Acute Code(s): I25.10 - Atherosclerotic heart disease of [place] coronary artery without angina pectoris (4) Hyperlipidemia: Status: Acute Code(s): E78.5 - Hyperlipidemia, unspecified (5) BPH (benign prostatic hyperplasia): Status: Acute Code(s): N40.0 - Benign prostatic hyperplasia without lower urinary tract symptoms Plan HPI: patient is a 60 year old, Armenian speaking male, with PMH of intellectual delay, schizoaffective disorder, COPD, CAD, HTN, HLD, Hep C, BPH, Nicotine dependence, STEMI post cardiac catheterization and stent placement who was BIBA secondary to complaints of chest pain and anxiety. Hx of multiple inpatient admissions triggered by increased paranoid and episode of confusion.Most recent [facility] admission was in [place] on 07/13/25 with similar symptoms. Family believes patient is non compliant with meds. Formulation/clinical reasoning: increased anxiety and depression, increased paranoid thoughts. Poor ADL's, appetite, and sleeping. Non compliant with meds. Mom is in Hospice is another contributing factor. Question if medication compliant and decompensated. Hx of schizoaffective D/O with other medication condition. Patient would benefit in restrictive environment for safety, medication management, and refer patient to OP psychiatric services for aftercare. Hospital course: 09/07/25: Re-start all home meds Check Tegrotol, VPA, prolactin, and Ammonia levels Risperidone 3mg BID for pschosis Depakote 500mg BID for mood Tegretol 100mg BID Cogentin 1mg at HS Valium 2mg BID. Medication for cardiac conditions. 09/08/25: Meet with patient in his room with full time staff interpreter. Patient reports that he slept well last night. Denies nightmare. Report no issues with appetite. Patient reports feeling better and wants to be discharged home with his mom as he believes mom is at home. Denies SI/SIB/HI/AVH, report medications are helpful. Report depression and anxiety but with medication he feels better. Patient does not remember his , not able to read. Visible, anxious but no intrusive thoughts. Patient says he is always nice to people and that he is not like one of the female peers who was swearing and not nice to staff. Explain to patient that he just admitted yesterday. Need more time to monitor for safety and mental status, and collateral will take time. SW has tried to call his guardian x2,left VM but has not heard from him/her yet. 09/09: Continue current treatment regimen. He signed a 3 day notice which will next Saturday. SW trying to reach and obtain collateral from guardian. 09/10/25: Patient slept well, compliant with medications, visible in common areas, attended groups. Perseverative on discharge. Met with patient with the full time staff interpreter, reports no safety concerns. Tremors on bilateral hands was improved. Patient signed 3 day notice which is up next week on Saturday. youth care worker able to contact his brother, who will pick patient up by 09:00. Continued to contact to make sure patient have manager rn case and psychiatrist appointment upon discharge. Per social media intern notes, patient's legal guardian is very ill at this current time. Plan Patient on 15 minute checks for safety. Admitted to S1. 3 day notice. 09/14. Possibile discharge home. Brother will picker packer by 0900. Lab works Diagnostic as needed Work with treatment team to do collateral 09/08/25: VPA 77.1. Tegretol level 5.8: WNL/therapeutic. Prolactine: 14.7. WNL Hypertension/hyperlipidemia/CAD, history of VT and stent 2019. Continue aspirin, amlodipine, atorvastatin Blood pressures have been stable, labs reviewed and stable BPH Monitor voiding pattern. Bladder scan if patient has evidence of retention. Patient educated on: medication risk/benefits and therapeutic strategies Informed Consent: further education needed Reason for continued inpatient stay Substantial Risk for: med/psych decompensation Time Spent With Patient Time: Total time managing care of this patient today ____ minutes.
[2025-09-10 20:00] VITALS: BP 124/69; PULSE 81; RESP 16; TEMP 36.5; O2SAT 98
[2025-09-11 08:00] VITALS: BP 119/72; PULSE 78; RESP 18; TEMP 36.9; O2SAT 98
[2025-09-11] MEDS: Aspirin Enteric Coated 81 MG TABLET.DR PO (08:10)
[2025-09-11] MEDS: Ferrous Sulfate 324 MG TABLET.DR PO (08:11)
--- NOTE | 2025-09-11 13:43 | P.PNPSI_ITS ---
Subjective Subjective Date of Service: 09/11/25 Reason For Visit: Increased paranoid / pyschosis Interim History: Patient was seen with the home staging specialist. Patient remains anxious and wandering. He perseverates on leaving. He talks about getting a heart surgery in the past. (He was listening in on a conversation this doctor was having with another patient.). He says I don't go into people's rooms, I have respect, I haven't done anything wrong... Looks perplexed and confused. Per staff this is patient's presentation. Review of Systems Review of Systems Constitutional: Denies fatigue and Denies fever(s) Cardiovascular: Denies chest pain and Denies dyspnea Respiratory: Denies dyspnea Gastrointestinal: Denies abdominal pain Psychiatric: Denies SI Endocrine: Denies fatigue Yes all other systems are reviewed and are negative Constitutional: Reports as per HPI Mental Status Exam Mental Status Exam Narrative: Appearance: Casually dressed, adequate hygiene Behavior: Calm and cooperative throughout the interview. Eye contact is appropriate, and there are no signs of psychomotor agitation or retardation Speech: normal rate Thought process: Somewhat disorganized- could be at baseline Thought content: Wants to go home Mood: Depressed Affect: Flat SI:denies HI:denies VH/AH:none Delusions: No paranoia. Insight/judgment: Impaired at baseline insight and judgment Memory/cog: Alert and oriented to person and place Diagnostics Vital Signs (24Hr): Vital Signs - 24 hr 09/10/25 20:00 09/11/25 08:00 Temperature 97.7 F 98.4 F Pulse Rate 81 78 Respiratory Rate 16 18 Blood Pressure 124/69 119/72 Pulse Oximetry 98 98 Oxygen Delivery Method Room Air Room Air BMI result Body Mass Index 27.3 Labs 09/06/25 14:52 09/08/25 07:15 Medications Medications Current Medications Acetaminophen (Acetaminophen 325 Mg Tablet) 650 mg PO Q6H PRN PRN Reason: Headache/Pain, Scale 1-10 Al Hydroxide/Mg Hydroxide (Magnesium Hydrox/Alum Hydrox 30 Ml Oral.Susp) 30 ml PO Q6H PRN PRN Reason: Heartburn/Nausea Albuterol Sulfate (Albuterol Sulfate 90 Mcg 8 Gm Inhaler) 2 puff INHALE Q4H PRN PRN Reason: Wheezing Amlodipine Besylate (Amlodipine Besylate 2.5 Mg Tablet) 2.5 mg PO DAILY [facility]; Protocol Last Admin: 09/11/25 08:10 Dose: 2.5 mg Aspirin (Aspirin Enteric Coated 81 Mg Tablet.) 81 mg PO DAILY [facility] Last Admin: 09/11/25 08:10 Dose: 81 mg Atorvastatin Calcium (Atorvastatin Calcium 40 Mg Tablet) 40 mg PO BEDTIME [facility] Last Admin: 09/10/25 21:14 Dose: 40 mg Benztropine Mesylate (Benztropine Mesylate 1 Mg Tablet) 1 mg PO BEDTIME [facility] Last Admin: 09/10/25 21:15 Dose: 1 mg Carbamazepine (Carbamazepine 200 Mg Tablet) 200 mg PO BID [facility] Last Admin: 09/11/25 08:10 Dose: 200 mg Diazepam (Diazepam 2 Mg Tablet) 2 mg PO TID [facility] Last Admin: 09/11/25 08:10 Dose: 2 mg Divalproex Sodium (Divalproex Sodium 500 Mg Tablet.) 500 mg PO BID [facility] Last Admin: 09/11/25 08:11 Dose: 500 mg Ferrous Sulfate (Ferrous Sulfate 324 Mg Tablet.) 324 mg PO DAILY [facility] Last Admin: 09/11/25 08:11 Dose: 324 mg Hydroxyzine HCl (Hydroxyzine Hcl 25 Mg Tablet) 25 mg PO Q6H PRN PRN Reason: mild anxiety Last Admin: 09/07/25 11:58 Dose: 25 mg Magnesium Hydroxide (Milk Of Magnesia 30 Ml Oral.Susp) 30 ml PO DAILY PRN PRN Reason: Constipation Nicotine (Nicotine 21 Mg Patch.Td24) 21 mg TRANSDERMA DAILY PRN PRN Reason: nicotine craving Nicotine Polacrilex (Nicotine Polacrilex 2 Mg Gum) 2 mg BUCCAL Q2H PRN PRN Reason: Nicotine Cravings Omeprazole (Omeprazole 20 Mg Capsule.) 20 mg PO DAILY@0630 [facility] Last Admin: 09/11/25 06:23 Dose: 20 mg Risperidone (Risperidone 3 Mg Tablet) 3 mg PO BID [facility] Last Admin: 09/11/25 08:10 Dose: 3 mg Trazodone HCl (Trazodone Hcl 100 Mg Tablet) 100 mg PO BEDTIME [facility] Last Admin: 09/10/25 21:15 Dose: 100 mg Trazodone HCl (Trazodone Hcl 50 Mg Tablet) 50 mg PO BEDTIME MRX1 PRN PRN Reason: Insomnia Allergies Allergies Allergy/AdvReac Type Severity Reaction Status Date / Time acetaminophen Allergy Unknown PANADOL = Verified 09/06/25 14:42 ACETAMINOPHEN SHELLFISH Allergy Mild PATIENT Uncoded 09/06/25 14:42 REPORTS BURNING SENSATION THROUGHOUT OPIATES Allergy Unknown BECAME Uncoded 09/06/25 14:42 ADDICTED PANADOL Allergy Unknown UNKNOWN Uncoded 09/06/25 14:42 Assessment & Plan Assessment & Plan (1) Schizoaffective disorder: Qualifiers: Schizoaffective disorder type: unspecified Qualified Code(s): F25.9 - Schizoaffective disorder, unspecified Status: Acute Code(s): F25.9 - Schizoaffective disorder, unspecified (2) Hypertension: Status: Acute Code(s): I10 - Essential (primary) hypertension (3) CAD (coronary artery disease): Status: Acute Code(s): I25.10 - Atherosclerotic heart disease of [place] coronary artery without angina pectoris (4) Hyperlipidemia: Status: Acute Code(s): E78.5 - Hyperlipidemia, unspecified (5) BPH (benign prostatic hyperplasia): Status: Acute Code(s): N40.0 - Benign prostatic hyperplasia without lower urinary tract symptoms Plan HPI: patient is a 60 year old, Singaporean speaking male, with PMH of intellectual delay, schizoaffective disorder, COPD, CAD, HTN, HLD, Hep C, BPH, Nicotine dependence, STEMI post cardiac catheterization and stent placement who was BIBA secondary to complaints of chest pain and anxiety. Hx of multiple inpatient admissions triggered by increased paranoid and episode of confusion.Most recent [facility] admission was in [place] on 07/13/25 with similar symptoms. Family believes patient is non compliant with meds. Formulation/clinical reasoning: increased anxiety and depression, increased paranoid thoughts. Poor ADL's, appetite, and sleeping. Non compliant with meds. Mom is in Hospice is another contributing factor. Question if medication compliant and decompensated. Hx of schizoaffective D/O with other medication condition. Patient would benefit in restrictive environment for safety, medication management, and refer patient to OP psychiatric services for aftercare. Hospital course: 09/07/25: Re-start all home meds Check Tegrotol, VPA, prolactin, and Ammonia levels Risperidone 3mg BID for pschosis Depakote 500mg BID for mood Tegretol 100mg BID Cogentin 1mg at HS Valium 2mg BID. Medication for cardiac conditions. 09/08/25: Meet with patient in his room with home staging specialist. Patient reports that he slept well last night. Denies nightmare. Report no issues with appetite. Patient reports feeling better and wants to be discharged home with his mom as he believes mom is at home. Denies SI/SIB/HI/AVH, report medications are helpful. Report depression and anxiety but with medication he feels better. Patient does not remember his , not able to read. Visible, anxious but no intrusive thoughts. Patient says he is always nice to people and that he is not like one of the female peers who was swearing and not nice to staff. Explain to patient that he just admitted yesterday. Need more time to monitor for safety and mental status, and collateral will take time. SW has tried to call his guardian x2,left VM but has not heard from him/her yet. 09/09: Continue current treatment regimen. He signed a 3 day notice which will next Saturday. SW trying to reach and obtain collateral from guardian. 09/10/25: Patient slept well, compliant with medications, visible in common areas, attended groups. Perseverative on discharge. Met with patient with the home staging specialist, reports no safety concerns. Tremors on bilateral hands was improved. Patient signed 3 day notice which is up next week on Saturday. health worker able to contact his brother, who will pick patient up by 09:00. Continued to contact to make sure patient have caseworker and psychiatrist appointment upon discharge. Per social worker masters notes, patient's legal guardian is very ill at this current time. 09/11: continue current management and treatment plan. Plan Patient on 15 minute checks for safety. Admitted to S1. 3 day notice. 09/14. Possibile discharge home. Brother will pickle sorter by 0900. Lab works Diagnostic as needed Work with treatment team to do collateral 09/08/25: VPA 77.1. Tegretol level 5.8: WNL/therapeutic. Prolactine: 14.7. WNL Hypertension/hyperlipidemia/CAD, history of MA and stent 2019. Continue aspirin, amlodipine, atorvastatin Blood pressures have been stable, labs reviewed and stable BPH Monitor voiding pattern. Bladder scan if patient has evidence of retention. Reason for continued inpatient stay Substantial Risk for: inability to function and rapid decompensation Time Spent With Patient Time: Total time managing care of this patient today ____ minutes.
[2025-09-11 20:00] VITALS: BP 115/56; PULSE 88; RESP 18; TEMP 36.6; O2SAT 97
[2025-09-12 08:00] VITALS: BP 129/77; PULSE 84; RESP 18; TEMP 36.6; O2SAT 98
[2025-09-12] MEDS: Aspirin Enteric Coated 81 MG TABLET.DR PO (08:26)
[2025-09-12] MEDS: Ferrous Sulfate 324 MG TABLET.DR PO (08:27)
--- NOTE | 2025-09-12 09:42 | P.PNPSI_ITS ---
Subjective Subjective Date of Service: 09/12/25 Reason For Visit: Increased paranoid / pyschosis Interim History: Patient was seen with the shirrer. He perseverates on leaving. Looks perplexed and confused. Repeats himself. Patient remains anxious and wandering. Per staff this is patient's presentation. Review of Systems Review of Systems Constitutional: Denies fatigue and Denies fever(s) Cardiovascular: Denies chest pain and Denies dyspnea Respiratory: Denies dyspnea Gastrointestinal: Denies abdominal pain Psychiatric: Denies SI Endocrine: Denies fatigue Yes all other systems are reviewed and are negative Constitutional: Reports as per HPI Mental Status Exam Mental Status Exam Narrative: Appearance: Casually dressed, adequate hygiene Behavior: Calm and cooperative throughout the interview. Eye contact is appropriate, and there are no signs of psychomotor agitation or retardation Speech: normal rate Thought process: Somewhat disorganized- could be at baseline Thought content: Wants to go home Mood: Depressed Affect: Flat SI:denies HI:denies VH/AH:none Delusions: No paranoia. Insight/judgment: Impaired at baseline insight and judgment Memory/cog: Alert and oriented to person and place Diagnostics Vital Signs (24Hr): Vital Signs - 24 hr 09/11/25 20:00 09/12/25 08:00 Temperature 97.9 F 97.9 F Pulse Rate 88 84 Respiratory Rate 18 18 Blood Pressure 115/56 L 129/77 Pulse Oximetry 97 98 Oxygen Delivery Method Room Air Room Air BMI result Body Mass Index 27.3 Labs 09/06/25 14:52 09/08/25 07:15 Medications Medications Current Medications Acetaminophen (Acetaminophen 325 Mg Tablet) 650 mg PO Q6H PRN PRN Reason: Headache/Pain, Scale 1-10 Al Hydroxide/Mg Hydroxide (Magnesium Hydrox/Alum Hydrox 30 Ml Oral.Susp) 30 ml PO Q6H PRN PRN Reason: Heartburn/Nausea Albuterol Sulfate (Albuterol Sulfate 90 Mcg 8 Gm Inhaler) 2 puff INHALE Q4H PRN PRN Reason: Wheezing Amlodipine Besylate (Amlodipine Besylate 2.5 Mg Tablet) 2.5 mg PO DAILY [facility]; Protocol Last Admin: 09/12/25 08:27 Dose: 2.5 mg Aspirin (Aspirin Enteric Coated 81 Mg Tablet.Dr) 81 mg PO DAILY [facility] Last Admin: 09/12/25 08:26 Dose: 81 mg Atorvastatin Calcium (Atorvastatin Calcium 40 Mg Tablet) 40 mg PO BEDTIME [facility] Last Admin: 09/11/25 20:18 Dose: 40 mg Benztropine Mesylate (Benztropine Mesylate 1 Mg Tablet) 1 mg PO BEDTIME [facility] Last Admin: 09/11/25 20:17 Dose: 1 mg Carbamazepine (Carbamazepine 200 Mg Tablet) 200 mg PO BID [facility] Last Admin: 09/12/25 08:27 Dose: 200 mg Diazepam (Diazepam 2 Mg Tablet) 2 mg PO TID [facility] Last Admin: 09/12/25 08:27 Dose: 2 mg Divalproex Sodium (Divalproex Sodium 500 Mg Tablet.) 500 mg PO BID [facility] Last Admin: 09/12/25 08:26 Dose: 500 mg Ferrous Sulfate (Ferrous Sulfate 324 Mg Tablet.) 324 mg PO DAILY [facility] Last Admin: 09/12/25 08:27 Dose: 324 mg Hydroxyzine HCl (Hydroxyzine Hcl 25 Mg Tablet) 25 mg PO Q6H PRN PRN Reason: mild anxiety Last Admin: 09/07/25 11:58 Dose: 25 mg Magnesium Hydroxide (Milk Of Magnesia 30 Ml Oral.Susp) 30 ml PO DAILY PRN PRN Reason: Constipation Nicotine (Nicotine 21 Mg Patch.Td24) 21 mg TRANSDERMA DAILY PRN PRN Reason: nicotine craving Nicotine Polacrilex (Nicotine Polacrilex 2 Mg Gum) 2 mg BUCCAL Q2H PRN PRN Reason: Nicotine Cravings Omeprazole (Omeprazole 20 Mg Capsule.) 20 mg PO DAILY@0630 [facility] Last Admin: 09/12/25 06:16 Dose: 20 mg Risperidone (Risperidone 3 Mg Tablet) 3 mg PO BID [facility] Last Admin: 09/12/25 08:27 Dose: 3 mg Trazodone HCl (Trazodone Hcl 100 Mg Tablet) 100 mg PO BEDTIME [facility] Last Admin: 09/11/25 20:18 Dose: 100 mg Trazodone HCl (Trazodone Hcl 50 Mg Tablet) 50 mg PO BEDTIME MRX1 PRN PRN Reason: Insomnia Allergies Allergies Allergy/AdvReac Type Severity Reaction Status Date / Time acetaminophen Allergy Unknown PANADOL = Verified 09/06/25 14:42 ACETAMINOPHEN SHELLFISH Allergy Mild PATIENT Uncoded 09/06/25 14:42 REPORTS BURNING SENSATION THROUGHOUT OPIATES Allergy Unknown BECAME Uncoded 09/06/25 14:42 ADDICTED PANADOL Allergy Unknown UNKNOWN Uncoded 09/06/25 14:42 Assessment & Plan Assessment & Plan (1) Schizoaffective disorder: Qualifiers: Schizoaffective disorder type: unspecified Qualified Code(s): F25.9 - Schizoaffective disorder, unspecified Status: Acute Code(s): F25.9 - Schizoaffective disorder, unspecified (2) Hypertension: Status: Acute Code(s): I10 - Essential (primary) hypertension (3) CAD (coronary artery disease): Status: Acute Code(s): I25.10 - Atherosclerotic heart disease of [place] coronary artery without angina pectoris (4) Hyperlipidemia: Status: Acute Code(s): E78.5 - Hyperlipidemia, unspecified (5) BPH (benign prostatic hyperplasia): Status: Acute Code(s): N40.0 - Benign prostatic hyperplasia without lower urinary tract symptoms Plan HPI: patient is a 60 year old, Syriac speaking male, with PMH of intellectual delay, schizoaffective disorder, COPD, CAD, HTN, HLD, Hep C, BPH, Nicotine dependence, STEMI post cardiac catheterization and stent placement who was BIBA secondary to complaints of chest pain and anxiety. Hx of multiple inpatient admissions triggered by increased paranoid and episode of confusion.Most recent [facility] admission was in [place] on 07/13/25 with similar symptoms. Family believes patient is non compliant with meds. Formulation/clinical reasoning: increased anxiety and depression, increased paranoid thoughts. Poor ADL's, appetite, and sleeping. Non compliant with meds. Mom is in Hospice is another contributing factor. Question if medication compliant and decompensated. Hx of schizoaffective D/O with other medication condition. Patient would benefit in restrictive environment for safety, medication management, and refer patient to OP psychiatric services for aftercare. Hospital course: 09/07/25: Re-start all home meds Check Tegrotol, VPA, prolactin, and Ammonia levels Risperidone 3mg BID for pschosis Depakote 500mg BID for mood Tegretol 100mg BID Cogentin 1mg at HS Valium 2mg BID. Medication for cardiac conditions. 09/08/25: Meet with patient in his room with shirrer. Patient reports that he slept well last night. Denies nightmare. Report no issues with appetite. Patient reports feeling better and wants to be discharged home with his mom as he believes mom is at home. Denies SI/SIB/HI/AVH, report medications are helpful. Report depression and anxiety but with medication he feels better. Patient does not remember his , not able to read. Visible, anxious but no intrusive thoughts. Patient says he is always nice to people and that he is not like one of the female peers who was swearing and not nice to staff. Explain to patient that he just admitted yesterday. Need more time to monitor for safety and mental status, and collateral will take time. SW has tried to call his guardian x2,left VM but has not heard from him/her yet. 09/09: Continue current treatment regimen. He signed a 3 day notice which will next Saturday. SW trying to reach and obtain collateral from guardian. 09/10/25: Patient slept well, compliant with medications, visible in common areas, attended groups. Perseverative on discharge. Met with patient with the shirrer, reports no safety concerns. Tremors on bilateral hands was improved. Patient signed 3 day notice which is up next week on Saturday. culture room worker able to contact his brother, who will pick patient up by 09:00. Continued to contact to make sure patient have residential case manager and psychiatrist appointment upon discharge. Per social service manager notes, patient's legal guardian is very ill at this current time. 09/11: continue current management and treatment plan. 09/12: continue current management and treatment plan. Plan Patient on 15 minute checks for safety. Admitted to S1. 3 day notice. 09/14. Possibile discharge home. Brother will greens picker by 0900. Lab works Diagnostic as needed Work with treatment team to do collateral 09/08/25: VPA 77.1. Tegretol level 5.8: WNL/therapeutic. Prolactine: 14.7. WNL Hypertension/hyperlipidemia/CAD, history of [place] and stent 2019. Continue aspirin, amlodipine, atorvastatin Blood pressures have been stable, labs reviewed and stable BPH Monitor voiding pattern. Bladder scan if patient has evidence of retention. Reason for continued inpatient stay Substantial Risk for: inability to function and rapid decompensation Time Spent With Patient Time: Total time managing care of this patient today ____ minutes.
[2025-09-12 20:00] VITALS: BP 136/82; PULSE 96; RESP 18; TEMP 36.8; O2SAT 97
[2025-09-13 09:26] VITALS: BP 113/58; PULSE 70; RESP 16; TEMP 36.6; O2SAT 98
[2025-09-13] MEDS: Ferrous Sulfate 324 MG TABLET.DR PO (09:38)
[2025-09-13] MEDS: Aspirin Enteric Coated 81 MG TABLET.DR PO (09:38)
--- NOTE | 2025-09-13 11:24 | HO.PSYCHPN ---
Subjective Subjective Date of Service: 09/13/25 Reason For Visit: Increased paranoid / pyschosis Subjective Notes: 3 Day Guardianship: Yes Medical Problems Affecting Mental Status: No Interim History: Medical record and nursing notes reviewed; case discussed during rounds with team/nursing staff, and met with patient for supportive therapy/psychoeducation, as well as medication management. Slept well, compliant with meds, no side effects. Visible in common areas, quiet. Need frequent reminding regarding time of discharge which is his baseline. Denies using MJ prior to admission but inhaled it in when people smoked around him. Brother will pick patient up at 0900 on 09/14/25. No meds sent to pharmacy as patient will continue with home meds. No med changes during hospitalization this time. Medication Compliance: Yes Side effects from medications: No Attending Groups: Intermittent Review of Systems Acute medical concerns: No Medical Review of Systems: unchanged Review of Systems Review of Systems Constitutional: Denies fatigue and Denies fever(s) Cardiovascular: Denies chest pain and Denies dyspnea Respiratory: Denies dyspnea Gastrointestinal: Denies abdominal pain Psychiatric: Denies SI Endocrine: Denies fatigue Yes all other systems are reviewed and are negative Constitutional: Reports as per HPI Mental Status Exam Mental Status Exam Narrative: Appearance: Casually dressed, adequate hygiene Behavior: Calm and cooperative throughout the interview. Eye contact is appropriate, and there are no signs of psychomotor agitation or retardation Speech: normal rate, soft. Thought process: Somewhat disorganized- could be at baseline Thought content: Wants to go home Mood: anxious at baseline but under control Affect: Flat SI:denies HI:denies VH/AH:none Delusions: No paranoia. Insight/judgment: Impaired at baseline Memory/cog: Alert and oriented to person and place Diagnostics Vital Signs (24Hr): Vital Signs - 24 hr 09/12/25 20:00 09/13/25 09:26 Temperature 98.3 F 98 F Pulse Rate 96 70 Respiratory Rate 18 16 Blood Pressure 136/82 113/58 L Pulse Oximetry 97 98 Oxygen Delivery Method Room Air Room Air BMI result Body Mass Index 27.3 Labs 09/06/25 14:52 09/08/25 07:15 Medications Medications Current Medications Acetaminophen (Acetaminophen 325 Mg Tablet) 650 mg PO Q6H PRN PRN Reason: Headache/Pain, Scale 1-10 Al Hydroxide/Mg Hydroxide (Magnesium Hydrox/Alum Hydrox 30 Ml Oral.Susp) 30 ml PO Q6H PRN PRN Reason: Heartburn/Nausea Albuterol Sulfate (Albuterol Sulfate 90 Mcg 8 Gm Inhaler) 2 puff INHALE Q4H PRN PRN Reason: Wheezing Amlodipine Besylate (Amlodipine Besylate 2.5 Mg Tablet) 2.5 mg PO DAILY [facility]; Protocol Last Admin: 09/13/25 09:38 Dose: 2.5 mg Aspirin (Aspirin Enteric Coated 81 Mg Tablet.) 81 mg PO DAILY [facility] Last Admin: 09/13/25 09:38 Dose: 81 mg Atorvastatin Calcium (Atorvastatin Calcium 40 Mg Tablet) 40 mg PO BEDTIME [facility] Last Admin: 09/12/25 20:06 Dose: 40 mg Benztropine Mesylate (Benztropine Mesylate 1 Mg Tablet) 1 mg PO BEDTIME [facility] Last Admin: 09/12/25 20:06 Dose: 1 mg Carbamazepine (Carbamazepine 200 Mg Tablet) 200 mg PO BID [facility] Last Admin: 09/13/25 09:38 Dose: 200 mg Diazepam (Diazepam 2 Mg Tablet) 2 mg PO TID [facility] Last Admin: 09/13/25 09:37 Dose: 2 mg Divalproex Sodium (Divalproex Sodium 500 Mg Tablet.) 500 mg PO BID [facility] Last Admin: 09/13/25 09:38 Dose: 500 mg Ferrous Sulfate (Ferrous Sulfate 324 Mg Tablet.) 324 mg PO DAILY [facility] Last Admin: 09/13/25 09:38 Dose: 324 mg Hydroxyzine HCl (Hydroxyzine Hcl 25 Mg Tablet) 25 mg PO Q6H PRN PRN Reason: mild anxiety Last Admin: 09/07/25 11:58 Dose: 25 mg Magnesium Hydroxide (Milk Of Magnesia 30 Ml Oral.Susp) 30 ml PO DAILY PRN PRN Reason: Constipation Nicotine (Nicotine 21 Mg Patch.Td24) 21 mg TRANSDERMA DAILY PRN PRN Reason: nicotine craving Nicotine Polacrilex (Nicotine Polacrilex 2 Mg Gum) 2 mg BUCCAL Q2H PRN PRN Reason: Nicotine Cravings Omeprazole (Omeprazole 20 Mg Capsule.) 20 mg PO DAILY@0630 [facility] Last Admin: 09/13/25 05:46 Dose: 20 mg Risperidone (Risperidone 3 Mg Tablet) 3 mg PO BID [facility] Last Admin: 09/13/25 09:37 Dose: 3 mg Trazodone HCl (Trazodone Hcl 100 Mg Tablet) 100 mg PO BEDTIME [facility] Last Admin: 09/12/25 20:06 Dose: 100 mg Trazodone HCl (Trazodone Hcl 50 Mg Tablet) 50 mg PO BEDTIME MRX1 PRN PRN Reason: Insomnia Allergies Allergies Allergy/AdvReac Type Severity Reaction Status Date / Time acetaminophen Allergy Unknown PANADOL = Verified 09/06/25 14:42 ACETAMINOPHEN SHELLFISH Allergy Mild PATIENT Uncoded 09/06/25 14:42 REPORTS BURNING SENSATION THROUGHOUT OPIATES Allergy Unknown BECAME Uncoded 09/06/25 14:42 ADDICTED PANADOL Allergy Unknown UNKNOWN Uncoded 09/06/25 14:42 Assessment & Plan Assessment & Plan (1) Schizoaffective disorder: Qualifiers: Schizoaffective disorder type: unspecified Qualified Code(s): F25.9 - Schizoaffective disorder, unspecified Status: Acute Code(s): F25.9 - Schizoaffective disorder, unspecified (2) Hypertension: Status: Acute Code(s): I10 - Essential (primary) hypertension (3) CAD (coronary artery disease): Status: Acute Code(s): I25.10 - Atherosclerotic heart disease of [place] coronary artery without angina pectoris (4) Hyperlipidemia: Status: Acute Code(s): E78.5 - Hyperlipidemia, unspecified (5) BPH (benign prostatic hyperplasia): Status: Acute Code(s): N40.0 - Benign prostatic hyperplasia without lower urinary tract symptoms Plan HPI: patient is a 60 year old, Kosovan speaking male, with PMH of intellectual delay, schizoaffective disorder, COPD, CAD, HTN, HLD, Hep C, BPH, Nicotine dependence, STEMI post cardiac catheterization and stent placement who was BIBA secondary to complaints of chest pain and anxiety. Hx of multiple inpatient admissions triggered by increased paranoid and episode of confusion.Most recent [facility] admission was in [place] on 07/13/25 with similar symptoms. Family believes patient is non compliant with meds. Formulation/clinical reasoning: increased anxiety and depression, increased paranoid thoughts. Poor ADL's, appetite, and sleeping. Non compliant with meds. Mom is in Hospice is another contributing factor. Question if medication compliant and decompensated. Hx of schizoaffective D/O with other medication condition. Patient would benefit in restrictive environment for safety, medication management, and refer patient to OP psychiatric services for aftercare. Hospital course: 09/07/25: Re-start all home meds Check Tegrotol, VPA, prolactin, and Ammonia levels Risperidone 3mg BID for pschosis Depakote 500mg BID for mood Tegretol 100mg BID Cogentin 1mg at HS Valium 2mg BID. Medication for cardiac conditions. 09/08/25: Meet with patient in his room with welcome center attendant. Patient reports that he slept well last night. Denies nightmare. Report no issues with appetite. Patient reports feeling better and wants to be discharged home with his mom as he believes mom is at home. Denies SI/SIB/HI/AVH, report medications are helpful. Report depression and anxiety but with medication he feels better. Patient does not remember his , not able to read. Visible, anxious but no intrusive thoughts. Patient says he is always nice to people and that he is not like one of the female peers who was swearing and not nice to staff. Explain to patient that he just admitted yesterday. Need more time to monitor for safety and mental status, and collateral will take time. SW has tried to call his guardian x2,left VM but has not heard from him/her yet. 09/09: Continue current treatment regimen. He signed a 3 day notice which will next Saturday. SW trying to reach and obtain collateral from guardian. 09/10/25: Patient slept well, compliant with medications, visible in common areas, attended groups. Perseverative on discharge. Met with patient with the welcome center attendant, reports no safety concerns. Tremors on bilateral hands was improved. Patient signed 3 day notice which is up next week on Saturday. child daycare worker able to contact his brother, who will pick patient up by 09:00. Continued to contact to make sure patient have caser shoe parts and psychiatrist appointment upon discharge. Per social work supervisor notes, patient's legal guardian is very ill at this current time. 09/11: continue current management and treatment plan. 09/12: continue current management and treatment plan. 09/13/25: Slept well, compliant with meds, no side effects. No tremor. Visible in common areas, quiet. Need frequent reminding regarding time of discharge which is his baseline. Denies using MJ prior to admission but inhaled it in when people smoked around him. Brother will pick patient up at 0900 on 09/14/25. No meds sent to pharmacy as patient will continue with home meds. No med changes during hospitalization this time. Plan Patient on 15 minute checks for safety. Admitted to S1. 3 day notice. 09/14. Possible discharge home. Brother will roll picker by 0900. Lab works Diagnostic as needed Work with treatment team to do collateral 09/08/25: VPA 77.1. Tegretol level 5.8: WNL/therapeutic. Prolactine: 14.7. WNL Hypertension/hyperlipidemia/CAD, history of [place] and stent 2019. Continue aspirin, amlodipine, atorvastatin Blood pressures have been stable, labs reviewed and stable BPH Monitor voiding pattern. Bladder scan if patient has evidence of retention. Patient educated on: diagnosis, medication risk/benefits and therapeutic strategies Informed Consent: further education needed Reason for continued inpatient stay Substantial Risk for: med/psych decompensation Time Spent With Patient Time: Total time managing care of this patient today ____ minutes.
[2025-09-13 20:00] VITALS: BP 129/78; PULSE 77; RESP 18; TEMP 36.5; O2SAT 99
--- NOTE | 2025-09-14 08:25 | PM.PSYDC ---
DS: Providers Provider Date of Service: 09/14/25 Date of admission: 09/07/25 10:02 Date of discharge: 09/14/25 Primary care physician: Unknown Physician Attending physician on admission: Larisa Bennett Attending physician on discharge: Larisa Bennett DS: Diagnosis Discharge Diagnosis (1) Schizoaffective disorder: Status: Acute (2) Hypertension: Status: Acute (3) CAD (coronary artery disease): Status: Acute (4) Hyperlipidemia: Status: Acute (5) BPH (benign prostatic hyperplasia): Status: Acute DS: Medications Discharge Medications Home Medications: Home Medications ?Medication ?Instructions ?Recorded ?Confirmed benztropine 1 mg tablet 1 mg PO BEDTIME 09/06/25 09/06/25 Previous Rx's ?Medication ?Instructions ?Recorded albuterol sulfate 90 mcg/actuation 2 puff inhalation Q4H PRN Wheezing 05/28/25 aerosol inhaler (Ventolin HFA) #6.7 grams amlodipine 2.5 mg tablet 2.5 mg PO DAILY #30 tabs 05/28/25 aspirin 81 mg tablet,delayed 81 mg PO DAILY #30 tabs 05/28/25 release atorvastatin 40 mg tablet 40 mg PO BEDTIME #30 tabs 05/28/25 carbamazepine 200 mg tablet 200 mg PO BID #60 tabs 05/28/25 diazepam 2 mg tablet 2 mg PO TID #90 tabs 05/28/25 divalproex 500 mg tablet,delayed 500 mg PO BID #60 tabs 05/28/25 release ferrous sulfate 324 mg (65 mg 324 mg PO DAILY #30 tabs 05/28/25 iron) tablet,delayed release omeprazole 20 mg capsule,delayed 20 mg PO DAILY #30 caps 05/28/25 release risperidone 3 mg tablet 3 mg PO BID #60 tabs 05/28/25 trazodone 100 mg tablet 100 mg PO BEDTIME #30 tabs 05/28/25 Mental Status Exam Mental Status Exam Narrative: Patient presents well-groomed, casually dressed. Anxious at baseline with blunted affect. Speech is clear and coherent in Estonian. Thought process is linear and logical. Thought content is appropriate and relevant. Patient denies suicidal or homicidal ideation intent or plan. No overt psychotic symptoms elicited. Insight is fair . Judgment is fair. Data Data Completed and Pending Completed studies during hospitalization [Text1]: 09/08/25 09/08/25 07:14 07:15 Sodium 138 Potassium 3.3 Chloride 105 Carbon Dioxide 25 Anion Gap 11 L BUN 20 H Creatinine 0.72 Estim Creat Clear Calc 86.3 Estimated GFR > 60 Random Glucose 104 Estimat Average Glucose 103 Hemoglobin A1c % 5.2 Calcium 8.8 D Total Bilirubin 0.2 AST 32 ALT 36 Alkaline Phosphatase 60 Ammonia 50 Total Protein 6.3 L Albumin 3.8 Triglycerides 109 Cholesterol 143 LDL Cholesterol, Calc 90 HDL Cholesterol 32 L TSH 1.68 Free T4 1.09 Prolactin 14.7 Valproic Acid 77.1 Carbamazepine 5.8 DS: Summary Hospital Course Hospital Course: HPI: patient is a 60 year old, Estonian speaking male, with PMH of intellectual delay, schizoaffective disorder, COPD, CAD, HTN, HLD, Hep C, BPH, Nicotine dependence, STEMI post cardiac catheterization and stent placement who was BIBA secondary to complaints of chest pain and anxiety. Hx of multiple inpatient admissions triggered by increased paranoid and episode of confusion.Most recent [facility] admission was in [place] on 07/13/25 with similar symptoms. Family believes patient is non compliant with meds. Formulation/clinical reasoning: increased anxiety and depression, increased paranoid thoughts. Poor ADL's, appetite and sleeping. Non compliant with meds. Mom is in Hospice is another contributing factor. Question if medication compliant and decompensated. Hx of schizoaffective D/O with other medication condition. Patient would benefit in restrictive environment for safety, medication management, and refer patient to OP psychiatric services for aftercare. Hospital course: 09/07/25: Re-start all home meds Check Tegrotol, VPA, prolactin, and Ammonia levels Risperidone 3mg BID for pschosis Depakote 500mg BID for mood Tegretol 100mg BID Cogentin 1mg at HS Valium 2mg BID. Continue with Medication for cardiac conditions. 09/08/25: Meet with patient in his room with student services representative. Patient reports that he slept well last night. Denies nightmare. Report no issues with appetite. Patient reports feeling better and wants to be discharged home with his mom as he believes mom is at home. Denies SI/SIB/HI/AVH, report medications are helpful. Report depression and anxiety but with medication he feels better. Patient does not remember his , not able to read. Visible, anxious but no intrusive thoughts. Patient says he is always nice to people and that he is not like one of the female peers who was swearing and not nice to staff. Explain to patient that he just admitted yesterday. Need more time to monitor for safety and mental status, and collateral will take time. SW has tried to call his guardian x2,left VM but has not heard from him/her yet. 09/09: Continue current treatment regimen. He signed a 3 day notice which will next Saturday. SW trying to reach and obtain collateral from guardian. 09/10/25: Patient slept well, compliant with medications, visible in common areas, attended groups. Perseverative on discharge. Met with patient with the student services representative, reports no safety concerns. Tremors on bilateral hands was improved. Patient signed 3 day notice which is up next week on Saturday. recreation worker able to contact his brother, who will pick patient up by 09:00. Continued to contact to make sure patient have mental health case manager and psychiatrist appointment upon discharge. Per social sciences lecturer notes, patient's legal guardian is very ill at this current time. 09/11: continue current management and treatment plan. 09/12: continue current management and treatment plan. 09/13/25: Slept well, compliant with meds, no side effects. No tremor. Visible in common areas, quiet. Need frequent reminding regarding time of discharge which is his baseline. Denies using MJ prior to admission but inhaled it in when people smoked around him. Brother will pick patient up at 0900 on 09/14/25. No meds sent to pharmacy as patient will continue with home meds. No med changes during hospitalization this time. 09/14/25: patient discharged. Three day notice 09/14/25. Not committable. No dangerous behaviors toward self or others. Patient has OP team to work with. No medication changes during hospital stay. Patient to continue with medications as prescribed by OP providers. On 09/08/25: VPA 77.1. Tegretol level 5.8: WNL/therapeutic. Prolactine: 14.7. WNL Hypertension/hyperlipidemia/CAD, history of DC and stent 2020. Continue aspirin, amlodipine, atorvastatin Blood pressures have been stable, labs reviewed and stable BPH Monitor voiding pattern. Bladder scan if patient has evidence of retention. Time spent discussing smoking cessation with patient: 3 to 10 minutes Status at Discharge Cognitive/behavioral status at discharge: CONDITION ON DISCHARGE: CURRENT STATUS IT RELATES TO ADMISSION CRITERIA: Stable, improved. Improvements in depression, anxiety, and suicidal ideation. Improvements in sleep, energy, and appetite. and no hallucination or paranoia/delusional thought. Functional status at discharge: independent ambulation Overall status at discharge: patient is back to baseline Time Spent with Patient Time attestation: Total time managing care of this patient today ____ minutes. Time spent: Greater than 30 minutes Discharge Plan Discharge Anticipated Discharge Date/Time: 09/14/25 09:00 Patient Disposition: Home, Self-Care Discharge Diagnosis: Schizoaffective disorder, acute anxiety Referrals: [facility] PCP [Other] - 09/27/25 2:45 pm Referral Note: Appointment is with Federica A[facility] [Other] - 09/15/25 10:00 am Department of Developmental Services JENNIFER Schaeffer [Other] - 1 Week Referral Note: Please follow up with your DDS residence manager after discharge. [facility] [Other] - 09/14/25 Referral Note: Your [facility] services will restart on day of discharge for medication management. Discharge Medications: Continued benztropine 1 mg Tablet 1 mg PO BEDTIME atorvastatin 40 mg Tablet 40 mg PO BEDTIME Qty: 30 0RF amlodipine 2.5 mg Tablet 2.5 mg PO DAILY Qty: 30 0RF Protocol: Hold for SBP< HOLD for SBP < : 90 divalproex 500 mg Tablet,Delayed Release (Dr/Ec) 500 mg PO BID Qty: 60 0RF aspirin 81 mg Tablet,Delayed Release (Dr/Ec) 81 mg PO DAILY Qty: 30 0RF risperidone 3 mg Tablet 3 mg PO BID Qty: 60 0RF carbamazepine 200 mg Tablet 200 mg PO BID Qty: 60 0RF trazodone 100 mg Tablet 100 mg PO BEDTIME Qty: 30 0RF diazepam 2 mg Tablet 2 mg PO TID Qty: 90 0RF omeprazole 20 mg Capsule,Delayed Release(Dr/Ec) 20 mg PO DAILY Qty: 30 0RF albuterol sulfate [Ventolin HFA] 90 mcg/actuation Hfa Aerosol Inhaler 2 puff inhalation Q4H PRN (Reason: Wheezing) Qty: 6.7 0RF ferrous sulfate 324 mg (65 mg iron) Tablet,Delayed Release (Dr/Ec) 324 mg PO DAILY Qty: 30 0RF Discharge Orders: Discharge Order (Routine); Ordered 09/14/25 Ordered By: Larisa Bennett Diet: Regular diet Activity on Discharge: No Restrictions Stand Alone Forms: Patient Portal Discharge page, Community Support Print Language: Estonian Care Plan Goals: Maintain mood and safe behaviors Take medications as prescribed Continue to pursue sobriety Practice coping skills Continue with outpatient providers and reach out to them as needed Health Concerns: Mood stability and behaviors Sobriety Plan of Treatment: Follow up with your PCP, psychiatric provider and other outpatient providers regarding above concerns Take medications as prescribed Assessment: Assessment: Risk assessment at time of discharge: Patient was interviewed prior to discharge and found to be fully oriented and without any SI or HI. Patient has improved insight and judgment and wants to continue treatment. Patient is not in imminent risk of harm to self or others and has a safety plan that includes presenting to the closest ER or calling 911 if feeling unsafe. Patient has been observed closely by nursing and unit staff throughout admission; patient has not engaged in any behaviors that suggest dangerousness to self or others and has demonstrated appropriate behaviors and impulse control Discharge Date/Time: 09/14/25 09:28
[2025-09-14 08:30] VITALS: BP 132/74; PULSE 81; RESP 18; TEMP 36.7; O2SAT 97
[2025-09-14] MEDS: Ferrous Sulfate 324 MG TABLET.DR PO (08:31)
[2025-09-14] MEDS: Aspirin Enteric Coated 81 MG TABLET.DR PO (08:31)
--- OUTSIDE RECORDS SUMMARY | 2025-09-24 20:00 | XMS_ITS | Clinical Summary ---
Demographics Address [address] [facility] [facility] [facility] [address] [place] [address] Email Address [place] Preferred Language Croatian Marital Status Unknown Church Affiliation Unknown Race Unknown Ethnic Group Unknown Author Organization Unknown Care Team Providers Care Communications Electrician Supervisor Name Role Phone [employer]OVER, RAVINDRA Unavailable Unavailable AURELIA BULLOCK, JASE Unavailable Unavailable Payers Payer Name Policy Type Policy Number Effective Date Expira tion Date MEDICAID [facility] [id number] Problems Condition Name Condition Details Condition Category Status Onset Date Resolution Date Last Treatment Date Treating Clinician Comments SCHIZOAFFECT YESSENIA DISORDER, UNSPECIFIED Active 04-27 00:00: 00 ESSENTIAL (PRIMARY) HYPERTENSION Active 05-29 00:00: 00 MILD INTERMITTENT ASTHMA, UNCOMPLICATE D Active 05-29 00:00: 00 Allergies, Adverse Reactions, Alerts Allergy Name Allergy Type Status Severity Reaction(s) Onset Date Inactive Date Treating Clinician Comments NKA Propensity to adverse reactions Active 2025-05 20:43:2 3 Medications Ordered Medication Name Filled Medication Name Start Date Stop Date Current Medication? Ordering Clinician Indication Dosage Frequency Signature (SIG) Comments Components Aspir-81 mg tablet,oralia yed release 04-23 00:00: 00 05-25 23:59 :00 No [id number] 81 mg DAILY 81 mg DAILY (route: oral) Alternate Route: By mouth. Med Classific ation: Hematolog ical Agents atorvastati n 80 mg tablet 04-23 00:00: 00 11-28 23:59 :00 No [id number] 80 mg BEDTIME 80 mg BEDTIME (route: oral) Alternate Route: By mouth. Med Classific ation: Cardiovas cular Therapy Agents benztropine 1 mg tablet 02-11 00:00: 00 05-22 23:59 :00 No [id number] 1 mg EVERY PM 1 mg EVERY PM (route: oral) Alternate Route: NONE. Med Classific ation: Central Nervous System Agents Klonopin 0.5 mg tablet 2018-11 00:00: 00 11-28 23:59 :00 No [id number] 0.5 mg 2 TIMES DAILY 0.5 mg 2 TIMES DAILY (route: oral) Alternate Route: By mouth. Med Classific ation: Central Nervous System Agents metoprolol tartrate 25 mg tablet 04-23 00:00: 00 05-25 23:59 :00 No [id number] 25 mg DAILY 25 mg DAILY (route: oral) Alternate Route: By mouth. Med Classific ation: Cardiovas cular Therapy Agents mirtazapine 30 mg tablet 02-11 00:00: 00 12-24 23:59 :00 No [id number] 30 mg BEDTIME 30 mg BEDTIME (route: oral) Alternate Route: NONE. Med Classific ation: Central Nervous System Agents Risperdal 3 mg tablet 02-11 00:00: 00 05-23 23:59 :00 No [id number] 3 mg BEDTIME 3 mg BEDTIME (route: oral) Alternate Route: NONE. Med Classific ation: Central Nervous System Agents Risperdal 0.5 mg tablet 02-11 00:00: 00 05-23 23:59 :00 No [id number] 0.5 mg EVERY AM 0.5 mg EVERY AM (route: oral) Alternate Route: NONE. Med Classific ation: Central Nervous System Agents ticagrelor 90 mg tablet 04-23 00:00: 00 12-24 23:59 :00 No [id number] 90 mg 2 TIMES DAILY 90 mg 2 TIMES DAILY (route: oral) Alternate Route: By mouth. Med Classific ation: Hematolog ical Agents trazodone 100 mg tablet 02-11 00:00: 00 05-25 23:59 :00 No [id number] 100 mg DIRECTED 100 mg DIRECTED (route: oral) Med Classific ation: Central Nervous System Agents amlodipine 2.5 mg tablet 8-22 00:00: 00 05-25 23:59 :00 No [id number] 2.5 mg DAILY 2.5 mg DAILY (route: oral) Med Classific ation: Cardiovas cular Therapy Agents atorvastati n 80 mg tablet 8- 00:00: 00 12-24 23:59 :00 No [id number] 80 mg BEDTIME 80 mg BEDTIME (route: oral) Med Classific ation: Cardiovas cular Therapy Agents clonazepam 0.5 mg tablet 07-09 00:00: 00 07-06 23:59 :00 No [id number] 0.5 mg DIRECTED 0.5 mg DIRECTED (route: oral) Med Classific ation: Central Nervous System Agents ezetimibe 10 mg tablet 07-09 00:00: 00 05-25 23:59 :00 No [id number] 10 mg DAILY 10 mg DAILY (route: oral) Med Classific ation: Cardiovas cular Therapy Agents atorvastati n 20 mg tablet 12-24 00:00: 00 01-23 23:59 :00 No [id number] 20 mg BEDTIME 20 mg BEDTIME (route: oral) Med Classific ation: Cardiovas cular Therapy Agents diphenhydra mine 25 mg capsule 12-24 00:00: 00 05-13 23:59 :00 No [id number] 25 capsule BEDTIME 25 capsule BEDTIME (route: oral) Med Classific ation: Respirato ry Therapy Agents ferrous sulfate 325 mg (65 mg iron) tablet 12-24 00:00: 00 05-25 23:59 :00 No [id number] 325 mg DAILY 325 mg DAILY (route: oral) Med Classific ation: Electroly te Balance-N utritiona l Products ipratropium 0.5 mg-albutero l 3 mg (2.5 mg base)/3 mL nebulizatio n soln 2- 00:00: 00 03-15 23:59 :00 No [id number] 0.5 mg DIRECTED 0.5 mg DIRECTED (route: inhalation ) Med Classific ation: Respirato ry Therapy Agents mirtazapine 15 mg tablet 2-06 00:00: 00 05-20 23:59 :00 No [id number] 15 mg BEDTIME 15 mg BEDTIME (route: oral) Med Classific ation: Central Nervous System Agents omeprazole 20 mg capsule,del ayed release 2-06 00:00: 00 05-25 23:59 :00 No [id number] 20 capsule DAILY 20 capsule DAILY (route: oral) Med Classific ation: Gastroint estinal Therapy Agents Mavyret 100 mg-40 mg tablet - 00:00: 00 04-01 23:59 :00 No [id number] 100 mg DAILY 100 mg DAILY (route: oral) Med Classific ation: Anti-Infe ctive Agents rosuvastati n 10 mg tablet 01-23 00:00: 00 07-18 23:59 :00 No [id number] 10 mg DAILY 10 mg DAILY (route: oral) Med Classific ation: Cardiovas cular Therapy Agents mirtazapine 30 mg tablet 05-24 00:00: 00 05-25 23:59 :00 No [id number] 30 mg BEDTIME 30 mg BEDTIME (route: oral) Med Classific ation: Central Nervous System Agents rosuvastati n 40 mg tablet 07-23 00:00: 00 05-25 23:59 :00 No [id number] 20 mg DAILY 20 mg DAILY (route: oral) Med Classific ation: Cardiovas cular Therapy Agents folic acid 1 mg tablet 2022-11 00:00: 00 05-25 23:59 :00 No [id number] 1 mg DAILY 1 mg DAILY (route: oral) Med Classific ation: Electroly te Balance-N utritiona l Products thiamine HCl (vitamin B1) 100 mg tablet 2022-11 00:00: 00 05-25 23:59 :00 No [id number] 100 mg DAILY 100 mg DAILY (route: oral) Med Classific ation: Electroly te Balance-N utritiona l Products benztropine 0.5 mg tablet 05-23 00:00: 00 07-06 23:59 :00 No [id number] 0.5 mg BEDTIME 0.5 mg BEDTIME (route: oral) Med Classific ation: Central Nervous System Agents clonazepam 1 mg tablet 07-06 00:00: 00 05-25 23:59 :00 No [id number] 1 mg 2 TIMES DAILY 1 mg 2 TIMES DAILY (route: oral) Med Classific ation: Central Nervous System Agents famotidine 20 mg tablet 07-06 00:00: 00 05-25 23:59 :00 No [id number] 20 mg DAILY 20 mg DAILY (route: oral) Med Classific ation: Gastroint estinal Therapy Agents Risperdal 3 mg tablet 07-06 00:00: 00 05-25 23:59 :00 No [id number] 3 mg 3 TIMES DAILY 3 mg 3 TIMES DAILY (route: oral) Med Classific ation: Central Nervous System Agents albuterol sulfate HFA 90 mcg/actuati on aerosol inhaler 05-29 00:00: 00 Yes [id number] 2 puff NEEDED 2 puff NEEDED (route: inhalation ) Med Classific ation: Respirato ry Therapy Agents amlodipine 2.5 mg tablet 05-29 00:00: 00 Yes [id number] 2.5 mg EVERY AM 2.5 mg EVERY AM (route: oral) Med Classific ation: Cardiovas cular Therapy Agents aspirin 81 mg tablet,oralia yed release 05-29 00:00: 00 Yes [id number] 81 mg EVERY AM 81 mg EVERY AM (route: oral) Med Classific ation: Hematolog ical Agents atorvastati n 40 mg tablet 05-29 00:00: 00 Yes [id number] 40 mg BEDTIME 40 mg BEDTIME (route: oral) Med Classific ation: Cardiovas cular Therapy Agents benztropine 1 mg tablet 05-29 00:00: 00 Yes [id number] 1 mg 2 TIMES DAILY 1 mg 2 TIMES DAILY (route: oral) Med Classific ation: Central Nervous System Agents carbamazepi ne 200 mg tablet 05-29 00:00: 00 Yes [id number] 200 mg 2 TIMES DAILY 200 mg 2 TIMES DAILY (route: oral) Med Classific ation: Central Nervous System Agents Depakote ER 500 mg tablet,exte nded release 05-29 00:00: 00 Yes [id number] 500 mg 2 TIMES DAILY 500 mg 2 TIMES DAILY (route: oral) Med Classific ation: Central Nervous System Agents diazepam 2 mg tablet 05-29 00:00: 00 Yes [id number] 2 mg 3 TIMES DAILY 2 mg 3 TIMES DAILY (route: oral) Med Classific ation: Central Nervous System Agents ferrous sulfate 324 mg (65 mg iron) tablet,oralia yed release 05-29 00:00: 00 Yes [id number] 65 mg EVERY AM 65 mg EVERY AM (route: oral) Med Classific ation: Electroly te Balance-N utritiona l Products omeprazole 20 mg capsule,del ayed release 05-29 00:00: 00 Yes [id number] 20 mg EVERY AM 20 mg EVERY AM (route: oral) Med Classific ation: Gastroint estinal Therapy Agents Risperdal 3 mg tablet 05-29 00:00: 00 Yes [id number] 3 mg 2 TIMES DAILY 3 mg 2 TIMES DAILY (route: oral) Med Classific ation: Central Nervous System Agents trazodone 100 mg tablet 05-29 00:00: 00 Yes [id number] 100 mg BEDTIME 100 mg BEDTIME (route: oral) Med Classific ation: Central Nervous System Agents PROPRANOLOL ORAL 0 3-27 00:00: 00 04-23 00:00 :00 No 10 mg1 2 TIMES DAILY 10 mg1 2 TIMES DAILY (route: ) Alternate Route: NONE. Med Classific ation: CARDIOVAS CULAR THERAPY AGENTS Vital Signs Vital Name Observation Time Observation Value Commen ts Temperature 2025-09-05 11:14:00.000 97.5 [degF] Temperature 2025-09-04 10:31:00.000 97.5 [degF] Temperature 2025-09-03 10:56:00.000 97.5 [degF] Temperature 2025-09-02 10:42:00.000 97.7 [degF] Temperature 2025-09-01 10:53:00.000 97.5 [degF] Temperature 2025-08-31 11:35:00.000 97.5 [degF] Temperature 2025-08-30 11:15:00.000 97.5 [degF] Temperature 2025-08-29 10:35:00.000 97.5 [degF] Temperature 2025-08-28 11:43:00.000 97.5 [degF] Temperature 2025-08-27 11:47:00.000 97.5 [degF] Temperature 2025-08-26 11:01:00.000 97.5 [degF] Temperature 2025-08-25 11:12:00.000 97.7 [degF] Temperature 2025-08-24 11:15:00.000 97.6 [degF] Temperature 2025-08-23 10:59:00.000 97.5 [degF] Temperature 2025-08-22 10:57:00.000 97.5 [degF] Temperature 2025-08-21 10:22:00.000 97.3 [degF] Temperature 2025-08-20 10:54:00.000 97.5 [degF] Temperature 2025-08-19 10:41:00.000 97.5 [degF] Temperature 2025-08-18 11:10:00.000 97.4 [degF] Temperature 2025-08-17 11:14:00.000 97.2 [degF] Temperature 2025-08-16 11:21:00.000 97.5 [degF] Temperature 2025-08-15 10:58:00.000 98.1 [degF] Temperature 2025-08-14 11:31:00.000 97.5 [degF] Temperature 2025-08-13 11:06:00.000 97.7 [degF] Temperature 2025-08-12 13:34:00.000 98 [degF] Temperature 2025-08-11 10:55:00.000 97.9 [degF] Temperature 2025-08-10 10:08:00.000 97.8 [degF] Temperature 2025-08-09 10:43:00.000 97.7 [degF] Temperature 2025-08-08 10:03:00.000 97.5 [degF] Temperature 2025-08-07 10:08:00.000 97.5 [degF] Temperature 2025-08-06 10:46:00.000 97.5 [degF] Temperature 2025-08-05 10:17:00.000 97.5 [degF] Temperature 2025-08-04 10:49:00.000 97.7 [degF] Temperature 2025-08-03 10:50:00.000 97.4 [degF] Temperature 2025-08-02 11:01:00.000 97.5 [degF] Temperature 2025-08-01 11:21:00.000 97.4 [degF] Temperature 2025-07-31 11:19:00.000 97.4 [degF] Temperature 2025-07-30 10:37:00.000 97.5 [degF] Temperature 2025-07-29 10:09:00.000 97.5 [degF] Temperature 2025-07-28 11:09:00.000 97.4 [degF] Plan of Treatment Planned Activity Planned Date Details Comments Future Scheduled Test SKILLED NU RSE TO EVALUATE PATIENT, IDENTIFY PRIMARY AND CO-MORBID CONDITIONS CODED PER CODING GUIDELINES, AND DEVELOP PATIENT SPECIFIC PLAN OF CARE THAT INCLUDES PATIENT GOAL FOR HOME HEALTH. [code = SKILLED NURSE TO EVALUATE PATIENT, IDENTIFY PRIMARY AND CO-MORBID CONDITIONS CODED PER CODING GUIDELINES, AND DEVELOP PATIENT SPECIFIC PLAN OF CARE THAT INCLUDES PATIENT GOAL FOR HOME HEALTH.] Future Scheduled Test SKILLED NU RSE FOR MEDICATION ADMINISTRATION PER MEDICATION LIST TO BE PERFORMED DAILY [code = SKILLED NURSE FOR MEDICATION ADMINISTRATION PER MEDICATION LIST TO BE PERFORMED DAILY] Future Scheduled Test SKILLED NU RSE TO O/A OF PATIENTS MENTAL/BEHAVIORAL STATUS, ASSESS VITAL SIGNS WEEKLY. ALLOW 2 PRNS FOR MEDICATION MANAGEMENT. [code = SKILLED NURSE TO O/A OF PATIENTS MENTAL/BEHAVIORAL STATUS, ASSESS VITAL SIGNS WEEKLY. ALLOW 2 PRNS FOR MEDICATION MANAGEMENT.] Future Scheduled Test SKILLED NU RSE FOR O/A OF PATIENT'S RISK FOR VIOLENCE (TOWARD SELF OR OTHERS) AND TO PROVIDE INTERVENTION TECHNIQUES TO PROMOTE SAFETY TO PATIENT AND OTHERS [code = SKILLED NURSE FOR O/A OF PATIENT'S RISK FOR VIOLENCE (TOWARD SELF OR OTHERS) AND TO PROVIDE INTERVENTION TECHNIQUES TO PROMOTE SAFETY TO PATIENT AND OTHERS] Future Scheduled Test SKILLED NU RSE FOR O/A OF ALTERED THOUGHT PROCESS AND/OR DISRUPTION IN COGNITIVE OPERATIONS AND ACTIVITIES [code = SKILLED NURSE FOR O/A OF ALTERED THOUGHT PROCESS AND/OR DISRUPTION IN COGNITIVE OPERATIONS AND ACTIVITIES] Future Scheduled Test MEDICATION S WILL BE HELD AND STORED IN LOCKBOX [code = MEDICATIONS WILL BE HELD AND STORED IN LOCKBOX] Future Scheduled Test SKILLED NU RSE FOR O/A OF GENERAL HEALTH STATUS OF PAIN, CARDIAC, RESPIRATORY, GASTROINTESTINAL, GENITOURINARY, SKIN, NEUROLOGIC, ENDOCRINE SYSTEMS TO IDENTIFY CHANGES ASSOCIATED WITH EXACERBATION FOR EARLY INTERVENTION OF COMPLICATIONS WEEKLY. [code = SKILLED NURSE FOR O/A OF GENERAL HEALTH STATUS OF PAIN, CARDIAC, RESPIRATORY, GASTROINTESTINAL, GENITOURINARY, SKIN, NEUROLOGIC, ENDOCRINE SYSTEMS TO IDENTIFY CHANGES ASSOCIATED WITH EXACERBATION FOR EARLY INTERVENTION OF COMPLICATIONS WEEKLY.] Future Scheduled Test SKILLED NU RSE TO ADMINISTER MEDICATIONS DAILY AND PRE-POUR MEDICATIONS TILL NEXT CARE HOME PER MEDICATION LIST. [code = SKILLED NURSE TO ADMINISTER MEDICATIONS DAILY AND PRE-POUR MEDICATIONS TILL NEXT CARE HOME PER MEDICATION LIST.] Future Scheduled Test SKILLED NU RSE FOR O/A AND SKILLED TEACHING RELATED TO MANAGEMENT OF DEPRESSIVE SYMPTOMS AND/OR DEPRESSION. SN TO REPORT SIGNIFICANT CHANGE IN DEPRESSIVE SYMPTOMS TO CLINICAL PROVIDER FOR EARLY INTERVENTION. [code = SKILLED NURSE FOR O/A AND SKILLED TEACHING RELATED TO MANAGEMENT OF DEPRESSIVE SYMPTOMS AND/OR DEPRESSION. SN TO REPORT SIGNIFICANT CHANGE IN DEPRESSIVE SYMPTOMS TO CLINICAL PROVIDER FOR EARLY INTERVENTION.] Future Scheduled Test SKILLED NU RSE TO PERFORM HOME SAFETY AND FALL ASSESSMENT AND PROVIDE INSTRUCTION TO IMPLEMENT HOME SAFETY AND FALL PREVENTION STRATEGIES. [code = SKILLED NURSE TO PERFORM HOME SAFETY AND FALL ASSESSMENT AND PROVIDE INSTRUCTION TO IMPLEMENT HOME SAFETY AND FALL PREVENTION STRATEGIES.] Future Scheduled Test PATIENT CALDERÓN S A RISK OF HOSPITALIZATION AND ED USE. SKILLED NURSE TO ESTABLISH SUPPORT MEASURES TO MINIMIZE RISK OF HOSPITALIZATION AND ED USE, AND INSTRUCT PATIENT/CAREGIVER ON METHODS TO REDUCE AVOIDABLE HOSPITALIZATION AND ED USE. [code = PATIENT HAS A RISK OF HOSPITALIZATION AND ED USE. SKILLED NURSE TO ESTABLISH SUPPORT MEASURES TO MINIMIZE RISK OF HOSPITALIZATION AND ED USE, AND INSTRUCT PATIENT/CAREGIVER ON METHODS TO REDUCE AVOIDABLE HOSPITALIZATION AND ED USE.] Future Scheduled Test SKILLED NU RSE TO REVIEW PATIENT MEDICATIONS. INSTRUCT PATIENT/CAREGIVER ON MONITORING OF EFFECTIVENESS, ADVERSE DRUG REACTIONS, SIDE EFFECTS OF ALL MEDICATIONS (PRESCRIPTION/-OTC), AND HOW AND WHEN TO REPORT PROBLEMS. [code = SKILLED NURSE TO REVIEW PATIENT MEDICATIONS. INSTRUCT PATIENT/CAREGIVER ON MONITORING OF EFFECTIVENESS, ADVERSE DRUG REACTIONS, SIDE EFFECTS OF ALL MEDICATIONS (PRESCRIPTION/-OTC), AND HOW AND WHEN TO REPORT PROBLEMS.] Future Scheduled Test SKILLED NU RSE FOR O/A OF CLIENT'S SOCIAL ISOLATION AND PROVIDE ASSISTANCE TO CLIENT IN DEVELOPMENT OF PLANNED ACTIVITIES [code = SKILLED NURSE FOR O/A OF CLIENT'S SOCIAL ISOLATION AND PROVIDE ASSISTANCE TO CLIENT IN DEVELOPMENT OF PLANNED ACTIVITIES] Future Scheduled Test SKILLED NU RSE TO ASSESS PATIENT S PSYCHOSOCIAL STATUS TO IDENTIFY POTENTIAL ISSUES THAT MAY COMPLICATE THE PROVISION OF THE PLAN OF CARE INCLUDING THE PATIENT S ABILITY TO ACCESS COMMUNITY RESOURCES AND PSYCHOSOCIAL SUPPORT SERVICES. [code = SKILLED NURSE TO ASSESS PATIENT S PSYCHOSOCIAL STATUS TO IDENTIFY POTENTIAL ISSUES THAT MAY COMPLICATE THE PROVISION OF THE PLAN OF CARE INCLUDING THE PATIENT S ABILITY TO ACCESS COMMUNITY RESOURCES AND PSYCHOSOCIAL SUPPORT SERVICES.] Future Scheduled Test SKILLED NU RSE WILL MAINTAIN SITUATIONAL AWARENESS FOR SAFETY AND WILL NOTIFY CLINICAL LANGUAGE INSTRUCTOR AND PHYSICIAN/PROVIDER WITH ANY CHANGE IN CONDITION. [code = SKILLED NURSE WILL MAINTAIN SITUATIONAL AWARENESS FOR SAFETY AND WILL NOTIFY CLINICAL LANGUAGE INSTRUCTOR AND PHYSICIAN/PROVIDER WITH ANY CHANGE IN CONDITION.] Future Scheduled Test SKILLED NU RSE TO PROVIDE INSTRUCTION TO PATIENT/CAREGIVER RELATED TO DISCHARGE PLANNING. [code = SKILLED NURSE TO PROVIDE INSTRUCTION TO PATIENT/CAREGIVER RELATED TO DISCHARGE PLANNING.] Goal 2025-07-24 Patient Goal - TAKING MY MED S Goal Patient Goal - TAKING MY MED S Goal Provider Goal - A PLAN OF CARE WILL BE ESTABLISHED THAT MEETS PATIENT'S CARE HOME NEEDS AND INCLUDES PATIENT GOAL FOR HOME HEALTH. Goal Provider Goal - PATIENT WILL COMPLY WITH MEDICATION WHEN NURSE ADMINISTERS THROUGHOUT CERTIFICATION PERIOD. Goal Provider Goal - ALTERED MENTAL/BEHAVIORAL STATUS WILL BE IDENTIFIED PROMPTLY AND INTERVENTION INITIATED QUICKLY TO MINIMIZE ASSOCIATED RISKS THROUGHOUT CERTIFICATION PERIOD. Goal Provider Goal - PATIENT WILL REMAIN SAFE IN COMMUNITY WITHOUT EVIDENCE OF INJURY/HARM TO SELF OR OTHERS THROUGHOUT CERTIFICATION PERIOD. Goal Provider Goal - PATIENT WILL BE ABLE TO PERFORM DAILY FUNCTIONS AND HAVE OPTIMAL IMPROVEMENT IN THOUGHT PROCESS THROUGHOUT CERTIFICATION PERIOD. Goal Provider Goal - MEDICATION WILL BE STORED IN LOCKBOX FOR SAFETY. Goal Provider Goal - CHANGE IN GENERAL HEALTH STATUS WILL BE IDENTIFIED AND REPORTED TO PHYSICIAN FOR PROMPT INTERVENTION TO MINIMIZE ASSOCIATED RISKS THROUGHOUT CERTIFICATION PERIOD. Goal Provider Goal - PATIENT WILL COMPLY WITH MEDICATION WHEN SKILLED NURSE ADMINISTERS AND PRE-POURS MEDICATION THROUGHOUT CERTIFICATION PERIOD. Goal Provider Goal - PATIENT WILL REMAIN SAFE WITHOUT DECOMPENSATION IN DEPRESSIVE CONDITION, WHILE MAINTAINING OPTIMAL LEVEL OF MENTAL HEALTH AND WELL BEING THROUGHOUT CERTIFICATION PERIOD. Goal Provider Goal - PATIENT/CAREGIVER WILL VERBALIZE/DEMONSTRATE EFFECTIVE HOME SAFETY AND FALL PREVENTION STRATEGIES THROUGHOUT CERTIFICATION PERIOD. Goal Provider Goal - PATIENT WILL HAVE SUPPORT MEASURES ESTABLISHED TO PREVENT HOSPITALIZATION AND ED USE AND PATIENT/CAREGIVER WILL VERBALIZE/DEMONSTRATE METHODS TO REDUCE AVOIDABLE HOSPITALIZATION AND ED USE BY END OF EPISODE. Goal Provider Goal - PATIENT/CAREGIVER WILL VERBALIZE UNDERSTANDING OF EDUCATION PROVIDED ON MEDICATIONS BY THE END OF THE CERTIFICATION PERIOD. Goal Provider Goal - PATIENT WILL DEMONSTRATE AN INCREASED INTEREST IN SOCIALIZATION AND ACTIVITIES BY THE END OF THE CERTIFICATION PERIOD. Goal Provider Goal - PSYCHOSOCIAL NEEDS WILL BE IDENTIFIED AND PLAN IMPLEMENTED TO MINIMIZE RISK THROUGHOUT CERTIFICATION PERIOD. Goal Provider Goal - PATIENT WILL REMAIN SAFE IN THE COMMUNITY AND WILL BE FREE OF DANGER TO SELF AND OTHERS THROUGHOUT THE CERTIFICATION PERIOD. Goal Provider Goal - PATIENT/CAREGIVER WILL VERBALIZE UNDERSTANDING OF DISCHARGE PLANNING INSTRUCTIONS BY DATE OF DISCHARGE. Encounters Start Date/Time End Date/Time Encounter Type Admission Type Attending [facility] Care Department Encounter ID Discharge Date Discharge Status Discharge Condition Discharge Reason Percent Goals Met 2025-07-28 00:00:00 2025-09-25 00:00:00 Outpatient RECERTIFIC ATION [facility] [id number] 35.29
== END 2025-09-14 09:28 | disposition home or self-care (01) | DRG 750 ==
LOC: HO.ED 21:17 → HO.PGERI 09-07 10:20
PROVIDERS: Admitting Provider Nurse Practitioner Psychiatric/Mental Health; Emergency Provider Emergency Medicine; Visit Provider Nurse Practitioner Psychiatric/Mental Health
DX: F25.9 Schizoaffective disorder, unspecified (principal); F03.90 Unspecified dementia, unspecified severity, without behavioral disturbance, psychotic disturbance, mood disturbance, and anxiety; G40.909 Epilepsy, unspecified, not intractable, without status epilepticus; E78.5 Hyperlipidemia, unspecified; F17.210 Nicotine dependence, cigarettes, uncomplicated; D50.9 Iron deficiency anemia, unspecified; I25.10 Atherosclerotic heart disease of native coronary artery without angina pectoris; J44.9 Chronic obstructive pulmonary disease, unspecified; Z95.5 Presence of coronary angioplasty implant and graft; Z71.6 Tobacco abuse counseling; N40.0 Benign prostatic hyperplasia without lower urinary tract symptoms; I10 Essential (primary) hypertension; Z79.82 Long term (current) use of aspirin; Z79.899 Other long term (current) drug therapy
CPT/HCPCS: 36415; 80053; 80061; 80156; 80164; 80307; 81001; 82140; 83036; 84146; 84439; 84443; 85025; 93005; 99285; S9485

== ENCOUNTER → 2025-09-06 14:07 | Outpatient (BNV) | payer MEDICAID, SELFPAY | PROVIDERS: Emergency Provider Emergency Medicine; Visit Provider Internal Medicine Cardiovascular Disease | DX: R00.0 Tachycardia, unspecified (principal); I25.2 Old myocardial infarction | CPT/HCPCS: 93010 ==

== ENCOUNTER → 2025-09-07 10:02 | Outpatient (BNV) | payer MEDICAID, SELFPAY | PROVIDERS: Admitting Provider Nurse Practitioner Psychiatric/Mental Health; Emergency Provider Emergency Medicine; Visit Provider Nurse Practitioner Family | DX: I25.10 Atherosclerotic heart disease of native coronary artery without angina pectoris (principal); I10 Essential (primary) hypertension | CPT/HCPCS: 99221 ==

== ENCOUNTER → 2025-09-07 10:02 | Outpatient (BNV) | payer OTHER, SELFPAY | PROVIDERS: Admitting Provider Nurse Practitioner Psychiatric/Mental Health; Emergency Provider Emergency Medicine; Visit Provider Nurse Practitioner Psychiatric/Mental Health | DX: F25.9 Schizoaffective disorder, unspecified (principal); I10 Essential (primary) hypertension; I25.10 Atherosclerotic heart disease of native coronary artery without angina pectoris; E78.5 Hyperlipidemia, unspecified; N40.0 Benign prostatic hyperplasia without lower urinary tract symptoms | CPT/HCPCS: 99231; 99232 ==

== ENCOUNTER 2025-11-05 09:25 | Outpatient (AMB) | payer MEDICAID, SELFPAY ==
--- NOTE | 2025-11-05 09:30 | MHC.OFFVIS ---
Vital Signs 11/05/25 09:41 Weight 155 lb BP 106/52 L Blood Pressure Location Rt brachial Position Sitting Pulse 68 Intake Visit Reasons: sebacous cyst Intake Note: Patient referred by Dr. Itzel Valverde for evaluation of cyst on mid paraspinal back. Patient c/o: burning sensation when laying on it. Denies oozing, bleeding, itch. Disc Pad Plate Filler Required: Yes Information Interpreted: non-clinical & clinical ([facility] staff ) Accompanied by: [facility] staff Allergies acetaminophen Allergy (Unknown, Verified 11/05/25 09:38) PANADOL = ACETAMINOPHEN SHELLFISH Allergy (Mild, Uncoded 11/05/25 09:38) PATIENT REPORTS BURNING SENSATION THROUGHOUT OPIATES Allergy (Unknown, Uncoded 11/05/25 09:38) BECAME ADDICTED PANADOL Allergy (Unknown, Uncoded 11/05/25 09:38) UNKNOWN Medication List - Last Reconciled 11/05/25 by Jann Glaser MD albuterol sulfate 90 mcg/actuation (Ventolin HFA) 2 puffs inhalation Q4H PRN amlodipine 2.5 mg See Protocol PO DAILY aspirin 81 mg PO DAILY atorvastatin 40 mg PO BEDTIME benztropine 1 mg PO BEDTIME carbamazepine 200 mg PO BID diazepam 2 mg PO TID divalproex 500 mg PO BID ferrous sulfate 324 mg PO DAILY omeprazole 20 mg PO DAILY risperidone 3 mg PO BID trazodone 100 mg PO BEDTIME HPI Comments Details: Patient reports a longstanding history of a mass in the superficial soft tissues of his mid back. He finds it painful especially when he is trying to sleep at night. He desires excision. [facility] Medical History Schizoaffective disorder History of hepatitis C CAD (coronary artery disease) (~2019) Chest pain Palpitations Hypertension Hyperlipidemia History of ST elevation myocardial infarction (STEMI) (~2019) COPD (chronic obstructive pulmonary disease) Cough Nicotine dependence, cigarettes, uncomplicated Tubular adenoma BPH (benign prostatic hyperplasia) Surgical History History of heart artery stent (~2019) History of colonoscopy (~2021) History of esophagogastroduodenoscopy (EGD) (~2021) History of right inguinal hernia repair (~2003) History of left inguinal hernia repair (~2007) Family History Father Edema Mother Developmental delay Social History Household Members: Family Household Members Other:: Mother Hector and grand niece Housing: Apartment Do you presently have visiting nurse or other home services: Yes Alcohol intake: never Comment: 1:1 Patient Tobacco Use Status: Current everyday Tobacco user Tobacco use type: Cigarette Cigarette Packs Per Day: 1 Cigarettes Per Day: 20.0 Years Smoked: onset 12yo, 1ppd x 44yrs, 40pyh - e-Cigarette/Vaping Use: Never Used Second Hand Smoke Exposure: No Substance Use Type: Marijuana service: No Current occupational status: disabled Sexual orientation: Straight/Heterosexual Review of Systems Const All systems reviewed & are unremarkable except as noted in HPI and below Physical Exam Vital Signs: Last Vital Signs Pulse 68 11/05/25 09:41 BP 106/52 L 11/05/25 09:41 Const General: cooperative, healthy appearing and comfortable HEENT Head: Yes normal to inspection Eyes General: appearance normal, both eyes and all related structures Pupils: Equal, round and reactive pupils present EOM: EOMs intact bilaterally Neck Neck: Yes normal visual inspection Chest Chest palpation & inspection: normal inspection of the chest Resp Effort & Inspection: normal respiratory effort and able to speak in complete sentences Cardio Rate: regular rate Rhythm: regular rhythm GI Inspection: Yes normal to inspection Back/Spine/Pelvis Other: In the mid back just to the right of the spinous processes there is a 1-2 cm soft tissue mass consistent with a sebaceous cyst. Neuro Cranial nerves: Yes Equal, round and reactive pupils present Assessment & Plan Assessment & Plan (1) Sebaceous cyst: Code(s): L72.3 - Sebaceous cyst Category: Medical Plan: I reviewed with the patient nature of excisional biopsy also reviewed with them the risks are involved. These include but are not limited to the risk of bleeding the risks infection there is a of chronic pain the risk of unsightly scarring the risk of recurrence and the risk that he might need further procedures in the future. He indicated that he understood. He told me that he accepted the risks and still wished to proceed with surgery. Coding Level of Care Code New Pt Level 3 (73960) Diagnoses Sebaceous cyst L72.3 Time Spent (min) 30 Comment Record review patient visit and coordination of care time
[2025-11-05 09:41] VITALS: BP 106/52; PULSE 68
--- OUTSIDE RECORDS SUMMARY | 2025-11-05 10:06 | XMS_ITS | Encounter Summary ---
Author Organization [employer] Address [address] [facility] [address] [place] [address] Care Team Providers Care Manager Regional Sales Name Role Phone [place] [facility] [place] Primary Care Provider [phone] Reason for Visit * Reason Onset Date Comments Results 11/05/2025 Called pt 3 time s to r/s physical appointment no answer unable to leave voice mail provider out. One of the number on file was his case management specialist she stated she doesn't work anymore for the pt . Pt changed agency unknown. Remove case management specialist phone number. Encounter Details Date Type Department Care Team ([facility] Contact Info) Description 11/05/2025 Telephone [facility] [address] [place], [place] [phone] [place] [facility] 230 [place], [place] [phone] Results (Called pt 3 times to r/s physical appointment no answer unable to leave voice mail provider out. One of the number on file was his case management specialist she stated she doesn't work anymore for the pt . Pt changed agency unknown. Remove case management specialist phone number. ) Social History Tobacco Use Types Packs/Day Years [...] encounter Miscellaneous Notes * Telephone Encounter - Marah Ayers - 11/05/2025 9:05 AM EST Called pt 3 times to r/s physical appointment no answer unable to leave voice mail provider out. One of the number on file was his case management specialist she stated she doesn't work anymore for the pt . Pt changed agency unknown. Remove case management specialist phone number. documented in this encounter Plan of Treatment Not on file documented as of this encounter Visit Diagnoses Not on filedocumented in this encounter Additional Health Concerns Assessment Noted Time PHQ-9 Depression Total Score: 9 06/17/20 25 10:58 AM EDT documented as of this encounter Care Teams Manager Regional Sales Relationship Specialty Start Date End Date Vivian Portillo FNP [address] [place] [id number] PCP - General Family Medicine 05/15/22 Kristian Hodge 05/23/24 documented as of this encounter
--- OUTSIDE RECORDS SUMMARY | 2025-11-05 10:06 | XMS_ITS | Encounter Summary ---
Author Organization [employer] Address [address] [place] [address] Care Team Providers Care Anthropology Department Chair Name Role Phone Vivian Portillo [facility] Primary Care Provider [phone] Reason for Visit * Reason Comments Med Refill Encounter Details Date Type Department Care Team (Late st Contact Info) Description 09/24/2025 Refill [facility] 230 [place], [place] [phone] Vivian Portillo [facility] 230 [place] [address] Social History Tobacco Use Types Packs/Day Years [...] as of this encounter Plan of Treatment Not on file documented as of this encounter Visit Diagnoses Not on filedocumented in this encounter Additional Health Concerns Assessment Noted Time PHQ-9 Depression Total Score: 9 06/17/20 25 10:58 AM EDT documented as of this encounter Care Teams Anthropology Department Chair Relationship Specialty Start Date End Date Vivian Portillo FNP [address] [place] [address] PCP - General Family Medicine 05/15/22 Kristian Hodge 05/23/24 documented as of this encounter
--- OUTSIDE RECORDS SUMMARY | 2025-11-05 10:06 | XMS_ITS | Encounter Summary ---
Author Organization [employer] Address [address] [place] [address] Care Team Providers Care Veneer Stapler Name Role Phone Vivian Portillo [facility] Primary Care Provider [phone] Brandyn Cesar RN Unavailable [phone] Vee Ayers Unavailable Encounter Details Date Type Department Care Team (Late st Contact Info) Description 03/25/2023 Abstract [facility] 230 [place], [place] [phone] [facility] [address] [place] [address] Social History Tobacco Use Types Packs/Day Years [...] documented as of this encounter Care Teams Veneer Stapler Relationship Specialty Start Date End Date [place] [facility] [place] [address] [place] [address] PCP - General Family Medicine 05/15/22 Brandyn Cesar RN [address] [place] [address] Registered Nurse Family Medicine 08/26/25 09/14/25 Vee Ayers 08/26/25 09/14/25 Kristian Hodge 05/23/24 documented as of this encounter
--- OUTSIDE RECORDS SUMMARY | 2025-11-05 10:06 | XMS_ITS | Encounter Summary ---
Author Organization [employer] Address [address] [facility] [address] [place] [address] Care Team Providers Care Towel Sorter Name Role Phone Vivian Portillo [facility] Primary Care Provider [phone] Reason for Visit * Reason Onset Date Comments Chart Prep 11/04/2025 Encounter Details Date Type Department Care Team ([facility] st Contact Info) Description 11/04/2025 Telephone [facility] 230 [place] [address] Jaiden Gagnon FNP [address] [place] [address] Chart Prep Social History Tobacco Use Types Packs/Day Years [...] encounter Miscellaneous Notes * Telephone Encounter - Carrie Montes [place] - 11/04/2025 9:39 AM EST Chart Prep Labs: not applicable Images: not applicable Referrals: General Surgery - Appointment rescheduled and pt is aware of appointment details. Ref: [facility]. Vaccines due: Covid, Flu, Hep B, RSV, and Zoster Screenings: Lung CA screening Overdue care gaps: SBIRT, Oral health screening, and Tobacco documented in this encounter Plan of Treatment Not on file documented as of this encounter Visit Diagnoses Not on filedocumented in this encounter Additional Health Concerns Assessment Noted Time PHQ-9 Depression Total Score: 9 06/17/20 25 10:58 AM EDT documented as of this encounter Care Teams Towel Sorter Relationship Specialty Start Date End Date Vivian Portillo FNP [address] [place] [address] PCP - General Family Medicine 05/15/22 Kristian Hodge 05/23/24 documented as of this encounter
--- OUTSIDE RECORDS SUMMARY | 2025-11-05 10:06 | XMS_ITS | Encounter Summary ---
Author Organization [employer] Address [address] 7[address] [place] [address] Care Team Providers Care Food Service Clerk Name Role Phone Vivian Portillo [facility] Primary Care Provider [phone] Brandyn Cesar RN Unavailable [phone] Vee Ayers Unavailable Encounter Details Date Type Department Care Team (Late st Contact Info) Description 04/10/2023 Abstract [facility]INE [address] [place], [place] [phone] [facility] 230 [place] [address] Social History Tobacco Use Types Packs/Day Years [...] Noted Time PHQ-9 Depression Total Score: 0 03/21/20 23 10:22 AM EDT documented as of this encounter Care Teams Food Service Clerk Relationship Specialty Start Date End Date [place] [place] [address] [place] [address] PCP - General Family Medicine 05/15/22 Brandyn Cesar RN [address] [place] [address] Registered Nurse Family Medicine 08/26/25 09/14/25 Vee Ayers 08/26/25 09/14/25 Kristian Hodge 05/23/24 documented as of this encounter
--- OUTSIDE RECORDS SUMMARY | 2025-11-05 10:07 | XMS_ITS | Encounter Summary ---
Author Organization [employer] Address [address] [facility] [address] [place] [address] Care Team Providers Care Jukebox Route Driver Name Role Phone Vivian Portillo [facility] Primary Care Provider [phone] Brandyn Cesar RN Unavailable [phone] V[address] Ayers Unavailable Reason for Visit * Reason Onset Date Comments FYI 01/05/2025 Encounter Details Date Type Department Care Team ([facility] st Contact Info) Description 01/05/2025 Telephone [facility] 230 [place], [place] [phone] Vivian Portillo [facility] 230 [place] [address] FYI Social History Tobacco Use Types Packs/Day [...] EST Telephone call to [facility] BULLOCK ,at [facility] . [facility] states the pt fell on [...] 11:00 AM EST Tc from [facility] with [facility] stating that Pt fell this morning around 9:30 due to the [place] being slippery. Pt hit himself on his knee but when asked if he was in any pain he said that the Pain was a 2/10 so pt denied any pain medication and did not want to go to the Hospital. Contact Morro at [phone] documented in this encounter Plan of Treatment Not on file documented as of this encounter Visit Diagnoses Not on filedocumented in this encounter Additional Health Concerns Assessment Noted Time PHQ-9 Depression Total Score: 0 05/04/20 9:15 AM EDT documented as of this encounter Care Teams Jukebox Route Driver Relationship Specialty Start Date End Date Vivian Portillo FNP [address] [place] [address] PCP - General Family Medicine 05/15/22 Brandyn Cesar RN [address] [place] [address] Registered Nurse Family Medicine 08/26/25 09/14/25 Vee Ayers 08/26/25 09/14/25 Kristian Hodge 05/23/24 documented as of this encounter
--- OUTSIDE RECORDS SUMMARY | 2025-11-05 10:07 | XMS_ITS | Encounter Summary ---
Author Organization [employer] Address [address] [facility] [address] [place] [address] Care Team Providers Care Oyster Farmer Name Role Phone Vivian Portillo [facility] Primary Care Provider [phone] Brandyn Cesar RN Unavailable [phone] Vee Ayers Unavailable Encounter Details Date Type Department Care Team (Late st Contact Info) Description 08/12/2023 Telephone [facility] [address] [place], [place] [phone] Vivian Portillo [facility] [address] [place] [address] Social History Tobacco Use Types Packs/Day Years [...] documented as of this encounter Care Teams Oyster Farmer Relationship Specialty Start Date End Date Vivian Portillo FNP [address] [place] [address] PCP - General Family Medicine 05/15/22 Brandyn Cesar RN [address] [place] [id number] Registered Nurse Family Medicine 08/26/25 09/14/25 Vee Ayers 08/26/25 09/14/25 Kristian Hodge 05/23/24 documented as of this encounter
--- OUTSIDE RECORDS SUMMARY | 2025-11-05 10:07 | XMS_ITS | Clinical Summary ---
Author Organization [employer] Address [address] [facility] [address] [place] [address] Care Team Providers Care Horticulture Instructor Name Role Phone Vivian Portillo [facility] Primary Care Provider Allergies Active Allergy Reactions Criticality Noted Date Comments Acetaminophen 10/25/2022 Codeine 10/25/2022 Shellfish Protein-Containing Drug Products 10/29/2018 Medications * This document contains information received from the source organization and may not represent a complete record from that organization. ipratropium-albuterol (Duo-Neb) 0.5-2.5 mg/3 mL nebulizer solution Inhale 3 mL every 6 (six) hours. Inhale 3 milliliter by nebulization route 4 times every day 022 Active ezetimibe (Zetia) 10 MG tablet Take 1 tablet by mouth 1 (one) time each day. Active Multiple Vitamin (Multivitamin Adult) tabletIndications:Alcoh ol use disorder in remission Take once daily by mouth 30 tablet 3 023 Active albuterol 108 (90 Base) MCG/ACT inhalerIndications:Shor tness of breath Inhale 2 puffs every 6 (six) hours if needed for wheezing. 18 g 11 024 Active Blood Pressure Monitoring (Omron 3 Series BP Monitor) deviceIndications:Prima ry hypertension USE TO CHECK BLOOD PRESSURE EVERY DAY DIRECTED 1 each 024 Active carBAMazepine (TEGretol) 200 MG tablet Take 1 tablet by mouth 2 times daily. 024 Active Artificial Tears 0.2-0.2-1 % solution Apply 1 drop in affected eye(s) every 4 hours as needed for dry eyes 024 Active diazePAM (Valium) 2 MG tablet Take 1 tablet by mouth in the morning and 1 tablet at noon and 1 tablet in the evening. Active benztropine (Cogentin) 1 MG tablet Take 1 mg by mouth at bedtime. Active risperiDONE (RisperDAL) 1 MG tablet Take 3 tablets by mouth 2 times daily. 025 Active escitalopram (Lexapro) 10 MG tabletIndications:Schiz oaffective disorder, bipolar type (CMS/HCC) (HCC) Take 10 mg by mouth Once per day. 025 Active risperiDONE microspheres (RisperDAL Consta) 50 MG injectionIndications:Sc hizophrenia Inject 2 mL (50 mg) into the muscle every 14 (fourteen) days. 2 each 3 10/29/20 25 2:51 PM EST 025 Active divalproex (Depakote) 500 MG EC tabletIndications:Schiz oaffective disorder, bipolar type (CMS/HCC) (HCC) Take 1 tablet (500 mg) by mouth 2 times daily. 180 tablet 3 11/02/20 25 2:15 PM EST 025 Active traZODone (Desyrel) 100 MG tabletIndications:Schiz oaffective disorder, bipolar type (CMS/HCC) (HCC) Take 1 tablet (100 mg) by mouth at bedtime. 90 tablet 3 025 Active amLODIPine (Norvasc) 2.5 MG tabletIndications:Prima ry hypertension Take 1 tablet (2.5 mg) by mouth Once per day. 90 tablet 3 025 Active aspirin (Aspirin Low Dose) 81 MG EC tabletIndications:Ather osclerosis of coronary artery of [place] heart with angina pectoris, unspecified vessel or lesion type Take 1 tablet (81 mg) by mouth in the morning. 90 tablet 1 025 Active atorvastatin (Lipitor) 40 MG tabletIndications:Pure hypercholesterolemia Take 1 tablet (40 mg) by mouth at bedtime. 90 tablet 3 025 Active FeroSul 325 (65 Fe) MG tabletIndications:Iron deficiency anemia secondary to inadequate dietary iron intake Take 1 tablet (325 mg) by mouth Once per day. 90 tablet 3 11/02/20 25 2:15 PM EST 025 Active omeprazole (PriLOSEC) [address] capsuleIndications:Zahraa roesophageal reflux disease, unspecified whether esophagitis present TAKE 1 CAPSULE BY MOUTH DAILY 90 capsule 3 025 Active Active Problems Problem Noted Date Diagnosed Date Sebaceous cyst 08/19/2025 Dermoid cyst 06/17/2025 Assessment & Plan (06/17/2025 10:49 AM EDT): On mid back, patient has recurrent pain and drainage Will refer to [facility] Tobacco use disorder 05/04/2024 Dental caries 12/24/2023 Dental calculus 12/24/2023 Periodontal disease 12/24/2023 Dental abscess 12/24/2023 Alcohol use 04/16/2023 Overview (09/26/2023): Daily multivitamin Folic acid Thiamine supplementation Assessment & Plan (09/26/2023 11:57 AM EST): Denies current alcohol use Hx of intermittent binge drinking patterns Primary hypertension 10/27/2022 Overview (12/15/2022): Metoprolol 25mg XR Amlodipine 2.5mg Hx of STEMI with RCA PCI 04/2020 with 24 hours of AFIB Followed by [facility] cardiology Saw cardiology 09/2022-plan for 5 day [...] HOLD brillinta Follow up as scheduled with [facility] Cardiology for review of 5 day holter monitor Assessment & Plan (10/27/2022 10:36 PM EST): Well controlled Continue to follow with [facility] cardiology as scheduled Maintenance: BMP: 06/2022, WNL [...] 10/27/2022 Overview (02/23/2023): PO Ferrous sulfate Hospitalized [facility] 10/2022 with + FOBT and Hgb 8.1. [...] hepatic coma 10/27/2022 Overview (11/03/2023): Followed by [facility] HCV team Completed treatment with mayvret Assessment & Plan (09/26/2023 11:56 AM EST): Complete previously placed orders for test of cure Assessment & Plan (04/16/2023 1:51 PM EDT): Unclear if patient has complete treatment. Will reach out to [facility] team for status check Assessment & Plan (10/27/2022 10:43 PM EST): - It appears patient was lost to f/u w/ GI. Per visit notes previous decision not to tx HCV was d/t concerns re poor compliance.However now that patient is more closely followed by [facility] case management specialist, it is reasonable to reconsider treatment. - Will obtain baseline labwork and refer to [facility] HCV program Healthcare maintenance 10/27/2022 Overview (05/04/2024): C-Scope: 10/2022 polyp removed (benignb) --> repeat 2026 PSA: 06/2022 1.23 Vision Exam: Referred to [facility] eye care 04/2024 Dental Care: UTD through [facility] Immunizations: DECLINES ALL AAA Screening: Routine age [address] screenin12/2022- benign category 2--->will schedule repeat Assessment & Plan (09/26/2023 11:37 AM EST): Message sent to [facility] eye care for status check on [...] VNA. Continue aspirin and metoprolol and ask [facility] test worker to make sure that he is seen [...] functioning disability 03/31/2018 Schizoaffective disorder, bipolar type (CMS/HCC) 03/31/2018 Overview (06/17/2025): Significant psychiatric hx with multiple past hospitalizations See psychiatrist (Dr. Ayers) and therapist through [facility] Psychosis currently well managed Patient has a legal guardian (Blair Neumann [phone]) and CM N (Marlyn Bautista [phone]) Assessment & Plan (08/19/2025 4:30 PM EDT): [...] Ayers and Lesa his psychotherapist Discussed with test worker that medical records can only be released to guardian (will update information in the chart), I will provide AVS. Assessment & Plan (07/23/2024 2:58 PM EDT): No evidence of psychosis at this time, doing well on Risperdal 3 mg TID + Carbamazepine BID + Clonazepam BID. Continue follow up with Dr. Bishop + Counselor. Continue CM by [facility]. Advised Pt to go back to [facility] [...] [facility]. He reports being discharged from [facility]. Not able to identify reason for today's visit. Per his clinic record, Uche is engaged in services with [facility] for individual therapy and psychopharmacology. Reports no hallucinations at this time, denied SI/HI. clinician engaged patient with active, reflective listening. Reviewed and assessed for risk, current stressors and protective factors. For safety reasons, his brother was contacted and able to order picker/assembler Uche from the vaccine center location. His [...] medical history and self-report, he's connected with [facility] for services including OP individual therapy and Psychopharmacology. Assessment & Plan (10/27/2022 10:32 PM EST): Improved since recent hospitalization Current medications unclear, comprehensive medication rec needed. Will reach out to [facility] for updated med list Follow up as scheduled with [facility] psychiatry and therapy Benign prostatic hyperplasia 09/17/2013 [...] Date Resolved Date Strep pharyngitis 01/23/2024 05/04/2024 Shortness of breath 10/21/2023 09/29/20 25 Overview (05/04/2024): Albuterol t.i.d Stopped using symbicort d/t perceived ineffectiveness PFT's from 07/2022 unremarkable for significant restriction or obstruction 04/2023-Initial visit with Dr. Ramirez at [facility] pulmonology. Advised albuterol prn only Onychomycosis 04/17/2018 10/27/2022 Chronic gastritis 04/23/2012 10/27/2022 Chronic obstructive lung disease 04/23/2012 05/04/2024 Overview (11/03/2023): Albuterol t.i.d Stopped using symbicort d/t perceived ineffectiveness PFT's from 07/2022 unremarkable for significant restriction or obstruction 04/2023-Initial visit with Dr. Ramirez at [facility] pulmonology. Advised albuterol prn only Assessment & [...] and pending results anticipate pulmonology referral Encounters * This document contains information received from the source organization and may not represent a complete record from that organization. Date Type Department Care Team Description 11/05/[address] [address] Vivian Portillo FNP Results (Called pt 3 times to r/s physical appointment no answer unable to leave voice mail provider out. One of the number on file was his skilled nursing case manager she stated she doesn't work anymore for the pt . Pt changed agency unknown. Remove skilled nursing case manager phone number. ) 11/04/[address] [address] Jaiden Gagnon FNP Chart Prep 10/28/2025 Patient Outreach [address] [address] Vivian Portillo FNP Pre-visit Planning (Pre-visit planning - LVM ) 10/13/[address] [address] Vivian Portillo FNP chart prep 10/11/2025 Patient Outreach [facility] [address] [place], [place] [phone] Vivian Portillo FNP Pre-visit Planning (SDOH unable to reach LVM ) 10/05/2025 Patient Outreach [address] [phone] Vivian Portillo FNP Pre-visit Planning (SDOH screening completed on 06/17/2025) 09/27/2025 2:45 PM EST Office Visit [address] [phone] Federica Stein MD Pure hypercholesterolemia (Primary Dx); Dietary counseling; Exercise counseling; Overweight; Atherosclerosis of coronary artery of [place] heart with angina pectoris, unspecified vessel or lesion type; Chronic anemia; Primary hypertension; Gastroesophageal reflux disease, unspecified whether esophagitis present; Schizoaffective disorder, bipolar type (CMS/HCC) ([facility]); Tobacco use disorder; Iron deficiency anemia secondary to inadequate dietary iron intake; Healthcare maintenance 09/27/2025 Travel 09/24/[address] [address] Vivian Portillo [facility] 09/14/2025 Patient Outreach [address] [address] [facility]ination (CM/CHW outreach) 09/14/2025 Patient Outreach [address] [address] [facility] Transition Of Care (Tcm) (HDF- Scheduled) 09/14/2025 Patient Outreach [address] [address] BurneyVivian [facility] 09/03/2025 Patient Outreach [address] [address] BurneyVivian [facility] Care Coordination (CM/CHW outreach) 08/31/[address] [address] BurneyVivian [facility] 08/26/2025 Patient Outreach [address] [address] BurneyVivian [facility] Care Coordination (CHW Chart Review) 08/26/2025 Patient Outreach [address] [address] Vivian Portillo [facility] Care Management (C3CM- chart review) 08/26/2025 Patient Outreach [address] [address] [facility] 08/19/2025 2:00 PM EDT Office Visit [address] [address] Cammy Conn MD Sebaceous cyst (Primary Dx); Schizoaffective disorder, bipolar type (CMS/HCC) (HCC) 08/19/2025 Travel 08/11/[address] [address] Vivian Portillo [facility] pcp form from Last 3 Months Immunizations Immunization Administration [...] Sign Reading Time Taken Comments Blood Pressure 108/76 09/27/2025 2:55 PM EST Pulse 103 09/27/2025 2:55 PM EST Temperature 36.1 C (97 F) 09/27/2025 2:55 PM EST Respiratory Rate 20 09/27/2025 2:55 PM EST Oxygen Saturation 98% 09/27/2025 2:55 PM EST Inhaled Oxygen Concentration - - Weight 64.6 kg (142 lb 8 oz) 09/27/2025 2:55 PM EST Height 154.9 cm (5' 1 ) 09/27/2025 2:55 PM EST Body Mass Index 26.93 09/27/2025 2:55 PM EST Plan of Treatment Health Maintenance Due Date Last Done Comments CT Colonography 1967 Dental Oral Exam 1967 Dental Prophylaxis 1967 FIT DNA/Cologuard 1967 FIT 1967 FOBT 1967 Sigmoidoscopy 1967 Alcohol/Substance Use Screening 1979 Hepatitis B Vaccines (1 of 3 - 19+ 3-dose series) 1986 RSV Patients and Patients Aged 60 years or older (1 - Risk 50-74 years 1-dose series) 2017 Zoster Vaccines (1 of 2) 2017 Lung Cancer Screening 01/11/2024 01/11/2023 Dental X-Ray: Bitewings 12/25/2024 12/24/2023, 02/25 COVID-19 Vaccine ( season) 2025 07/06/2022, 06/05/2021, 05/08/2021 Influenza Vaccine (#1) 2025 , 10/25/2022, 10/23/2018, Additional history exists Depression Monitoring 12/18/2025 06/17/2025, 025 Disability Screening 06/17/2026 06/17/2025 SDOH Screening 06/17/2026 06/17/2025 Tobacco Screening 09/29/2026 09/29/2025 Dental X-Ray: Full Mouth 12/25/2026 024, 12/24/2023, 02/26/2012 Colonoscopy 10/18/2027 10/18/2022 Colorectal Cancer Screening 10/18/2027 Lipid Panel 05/29/2029 05/29/2024, 08/20, 12/06/2022, Additional history exists DTaP/Tdap/Td Vaccines (3 - Td or Tdap) 12/06/2032 12/06/2022, 05/19/2013, 09/11/2005 Hepatitis A Vaccines Completed 10/16/2001, 02/05/20 HIV Screening Completed 12/19/2022, 10/25/2022 Pneumococcal Vaccine: [...] 9:24 AM EDT) Triglycerides 43 <150 mg/dL [facility] Comment:Desirable Triglyceri de: less than 150 mg/dLBorderline High Triglyceride 150-199 mg/dLHigh Triglyceride: 200-499 mg/dLVery High Triglyceride: greater than or equal to 5OO mg/dL Cholesterol 119 <200 mg/dL [facility] Comment:Desirable Cholestero l: less than 200 mg/dLBorderline High Cholesterol: 200-239 mg/dLHigh Cholesterol: greater than 239 mg/dL LDL Cholesterol Calculated 75 <100 mg/dL [facility] Comment:Desirable LDL: less than 100 mg/dLNear Optimal/Above Optimal LDL: 110- 129 mg/dLBorderline High LDL: 130-159 mg/dLHigh LDL: 160-189 mg/dLVery High LDL: greater than or equal to 190 mg/dL HDL Cholesterol 36(L) >40 mg/dL [facility] Comment:Desirable HDL: great er than 40 mg/dL Note: This HDL assay may give artificially low results in patients with liver disease. Blood Venous blood specimen / Unknown 05/29/2024 9:24 AM EDT 05/29/2024 11:06 AM EDT [facility] LABORATORY INSPECTOR LAB BLOOD ORDERABLES Final Re sult [facility] [address] [place] [address] [phone] * HIV-1/2 Antigen and Antibodies, Fourth Generation, with Reflexes (12/19/2022 10:01 AM EST) HIV Antigen/Antibody, 4th Generation NON-REAC TIVE NON-REAC TIVE [facility] Comment: HIV-1 antigen and HIV-1/HIV-2 antibodies [...] purpose. For additional information please refer to http://education.CFO.com/faq/DWG316 (This link is being provided for informational/ educational purposes only.) The performance of this assay has not been clinically validated in patients less than 2 years old. Blood Venous blood specimen / Unknown 12/19/2022 10:01 AM EST 12/19/2022 10:01 AM EST Narrative [facility] - 12/25/2022 2:23 PM EST FASTING:YES FASTING: YES [facility] LABORATORY INSPECTOR LAB BLOOD ORDERABLES Final Re sult [facility] [address], [place] [address] [facility] [address] [facility], ([address]) [place] [address] * (ABNORMAL) Colonoscopy (10/18/2022) Colonoscopy Abnormal(A ) Normal 10/18/2022 Historical Provider MD HEALTH MAINTENANCE Final Result from Last 3 Months or Most Recently Relevant to Health Maintenance Insurance [address] [place] [id number] [facility] AD[facility] Advance Directives Documents on File Type Date Recorded Patient Termite Treater Expl anation Advance Directives and Living Will 10/05/2025 11:11 AM Health Care Proxy Care Teams Horticulture Instructor Relationship Specialty Start Date End Date Vivian Portillo FNP [address] [place] [phone] PCP - General Family Medicine 05/15/22 Kristian Hodge 05/23/24
--- OUTSIDE RECORDS SUMMARY | 2025-11-05 10:07 | XMS_ITS | Encounter Summary ---
Author Organization [employer] Address [address] [facility] [address] [place] [address] Care Team Providers Care Barometers Calibrator Name Role Phone [place] Vivian [facility] Primary Care Provider [phone] Brandyn Cesar RN Unavailable [phone] Vee Ayers Unavailable Encounter Details Date Type Department Care Team (Late st Contact Info) Description 12/31/2022 Abstract [facility] MEDICINE [address] [place] [address] [place] [facility] [address] [place] [address] Social History Tobacco Use Types Packs/Day Years [...] on filedocumented in this encounter Care Teams Barometers Calibrator Relationship Specialty Start Date End Date Vivian Portillo [facility] [address] [place] [address] PCP - General Family Medicine 6/28/22 Brandyn Cesar, KOBE [address] [place] [id number] Registered Nurse Family Medicine 08/26/25 09/14/25 Vee Ayers 08/26/25 09/14/25 Kristian Hodge 05/23/24 documented as of this encounter
--- OUTSIDE RECORDS SUMMARY | 2025-11-05 10:07 | XMS_ITS | Encounter Summary ---
Author Organization [facility] Address [address] [facility] [address] [place] [address] Care Team Providers Care Field Technical Specialist Name Role Phone Vivian Portillo [facility] Primary Care Provider [phone] Brandyn Cesar RN Unavailable [phone] Vee Ayers Unavailable Encounter Details Date Type Department Care Team ([facility] st Contact Info) Description 10/29/2022 Orders Only [facility] [address] [place] [address] [facility] [address] [place] [address] Social History Tobacco Use Types Packs/Day Years [...] on file documented as of this encounter Procedures Procedure [...] (10/29/2022 11:56 AM EST) OBS1 POSITIVE NEGATIVE [facility] 10/29/2022 11:5 6 AM EST 10/29/2022 11:59 AM EST us [facility] External Provider LAB BLO OD ORDERABLES Final Result [facility] [address] [place] [phone] * COVID-19 ID NOW (BLANK) (10/29/2022 11:55 AM EST) IDNOW SERIAL# [id number] [facility] COVID-19 TEST Negative Negative [facility] COVID-19 NOTE See Note [facility] Comment: Results are for the identification of SARS-CoV2 RNA. TheSARS-CoV2 RNA is generally detectable in respiratory samplesduring the acute phase of infection. Positive results areindicative of the presence of SARS-CoV-2 RNA; clinicalcorrelation with patient history and other diagnosticinformation is necessary to determine patient infectionstatus. Positive results do not rule out bacterial infectionor co- infection with other viruses.Testing facilities within the [facility] and itsterritories are required to report all positive results [...] use by authorized laboratories.Testing performed on the [employer] NOW utilizing NAAT. 10/29/2022 11:5 5 AM EST 10/29/2022 11:59 AM EST [facility] Exter nal Provider LAB MOLECULAR DIAGNOSTICS ORDERABLES Final Result Performing Organization Address City/[facility]/ZIP Co de Phone Number [facility] [address] [place] [phone] * Type and screen (10/29/2022 11:53 AM EST) Pathologist [facility] Blood Type AP [facility] Antibody Screen NEGATIVE [facility] 10/29/2022 11:5 3 AM EST 10/29/2022 12:05 PM EST [facility] External Provider LAB BLO OD BANK TEST ORDERABLES Final Result Performing Organization Address [facility] Co de Phone Number [facility] [address] [place] [phone] * Vitamin B12/Folate, Serum Panel (10/29/2022 11:53 AM EST) Vitamin B12 475 200 - 900 pg/mL [facility] Comment:NORMAL 200-900 PG/ML INDETERMINATE 160-199 PG/ML DEFICIENT < 160 PG/ML Folate 11.1 > or = 4.0 ng/mL [facility] Comment:Reference Values:> o r = 4.0 ng/mL< 4.0 ng/mL suggests folate deficiency Methotrexate, aminopterin and folinic acid(leucovorin) are chemotherapeutic agents whose molecularstructures are similar to folate; therefore, the Architectfolate assay cannot be used for patients using these drugs. 10/29/2022 11:5 3 AM EST 10/29/2022 11:59 AM EST [facility] External Provider LAB BLO OD ORDERABLES Final Result Performing Organization Address [facility] Co de Phone Number [facility] [address] [place] [phone] * (ABNORMAL) Iron And Total Iron Binding Capacity (10/29/2022 11:53 AM EST) Iron 8(L) 45 - 160 mcg/dL [facility] Total Iron Binding Capacity 345 228 - 428 mcg/dL [facility] Percent Iron Saturation 2(L) 15 - 50 % [facility] Unsaturated Iron Binding 337 ug/dL [facility] 10/29/2022 11:5 3 AM EST 10/29/2022 11:59 AM EST [facility] External Provider LAB BLO OD ORDERABLES Final Result Performing Organization Address [facility] Co de Phone Number [facility] [address] [place] [phone] * (ABNORMAL) Basic Metabolic Panel (10/29/2022 11:25 AM EST) Sodium 138 135 - 145 mmol/L [facility] Potassium 3.4 3.3 - 5.1 mmol/L [facility] Chloride 104 96 - 108 mmol/L [facility] Carbon Dioxide 24 22 - 29 mmol/L [facility] Anion Gap 13 12 - 20 [facility] Urea Nitrogen (BUN) 9 9 - 16 mg/dL [facility] Creatinine, Serum 0.75 0.5 - 1.4 mg/dL [facility] Creatinine Clr Calc Pharmacy 89.8 [facility] Comment:eGFR (calculated fro m the MDRD study equation) and eCrCl(calculated from the Cockcroft-Gault equation) are based ondifferent parameters and may not yield comparable results.If eCrCl result is absurd, please check patient'sheight/weight. Estimated Glomerular Filt Rate >60 [facility] Comment:NOTE: For -Am erican individuals, multiply the result by 1.210.Chronic Kidney Disease: Estimated GFR < 60 mL/min/1.35a1Rwedar Kidney Disease: Estimated GFR < 15 mL/min/1.73m2 Glucose 144(H) 60 - 115 mg/dL [facility] Calcium 9.3 8.4 - 10.2 mg/dL [facility] 10/29/2022 11:2 5 AM EST 10/29/2022 11:32 AM EST us [facility] External Provider LAB BLO OD ORDERABLES Final Result [facility] [address] [place] [phone] * Hepatic Function Panel (10/29/2022 11:25 AM EST) Bilirubin, Total 0.3 0.0 - 1.0 mg/dL [facility] Bilirubin, Direct <0.2 0.0 - 0.5 mg/dL [facility] Aspartate Amino Transferase 22 5 - 37 U/L [facility] Alanine Aminotransferase 24 0 - 40 U/L [facility] Total Protein 7.7 6.5 - 8.0 g/dL [facility] Albumin Level 4.2 3.5 - 5.0 g/dL [facility] Alkaline Phosphatase 86 39 - 117 U/L [facility] 10/29/2022 11:2 5 AM EST 10/29/2022 11:32 AM EST [facility] External Provider LAB BLO OD ORDERABLES Final Result Performing Organization Address [facility] Co de Phone Number [facility] [address] [place] [phone] * (ABNORMAL) Prothrombin Time-INR (10/29/2022 11:25 AM EST) Prothrombin Time 14.5(H) 10.0 - 13.1 SEC [facility] INTERNATIONAL NORM RATIO 1.3(H) 0.9 - 1.1 [facility] Comment:INTERNATIONAL NORMAL IZED RATIO (INR) REFERENCE [...] 5 AM EST 10/29/2022 11:32 AM EST [facility] External Provider LAB BLO OD ORDERABLES Final Result Performing Organization Address [facility] de Phone Number [facility] [address] [place] [phone] * (ABNORMAL) CBC auto differential (10/29/2022 11:25 AM EST) White Blood Count 6.4 4.8 - 10.8 X10*3/uL [facility] Red Blood Count 4.53(L) 4.60 - 5.80 X10*6/uL [facility] Hemoglobin 8.1(L) 14.0 - 18.0 g/dl [facility] Hematocrit 28.5(L) 42.0 - 52.0 % [facility] Mean Corpuscular Volume 62.9(L) 80.0 - 98.0 fL [facility] Mean Corpuscular Hemoglobin 17.9(L) 27.0 - 33.0 pg [facility] Mean Corpuscular HGB Conc 28.4(L) 31.0 - 36.0 g/dl [facility] Red Cell Distribution Width 22.2(H) 11.0 - 16.0 % [facility] Platelet Count 562(H) 160 - 400 X10*3/uL [facility] Mean Platelet Volume 9.1(L) 9.4 - 12.4 fL [facility] Neutrophils Percent Auto 79.3(H) 45 - 73 % [facility] Imm Gran Pct Auto 0.5(H) 0.0 - 0.4 % [facility] Lymphocytes Percent Auto 12.1(L) 20 - 40 % [facility] Monocytes Percent Auto 7.1 2 - 11 % [facility] Eosinophils Percent Auto 0.5 0 - 4 % [facility] Basophils Percent Auto 0.5 0 - 2 % [facility] NRBC Pct Auto 0.0 0.0 - 0.2 /100WBC [facility] Neutrophils Absolute Auto 5.1 2.0 - 8.3 x10*3/uL [facility] Imm Gran Abs Auto 0.03 0.00 - 0.03 X10*3/uL [facility] Lymphocytes Absolute Auto 0.8(L) 1.2 - 4.9 X10*3/uL [facility] Monocytes Absolute Auto 0.5 0.1 - 1.2 X10*3/uL [facility] Eosinophils Absolute Auto 0.0 0.0 - 0.4 X10*3/uL [facility] Basophils Absolute Auto 0.0 0.0 - 0.2 X10*3/uL [facility] NRBC Abs Auto 0.000 0.0 - 0.012 X10*3/uL [facility] 10/29/2022 11:2 5 AM EST 10/29/2022 11:32 AM EST us [facility] External Provider LAB BLO OD ORDERABLES Final Result [facility] [address] [place] [phone] documented in this encounter Visit Diagnoses Not on filedocumented in this encounter Care Teams Field Technical Specialist Relationship Specialty Start Date End Date Vivian Portillo FNP [address] [place] [phone] PCP - General Family Medicine 05/15/22 Brandyn Cesar, KOBE [address] [place] [address] Registered Nurse Family Medicine 08/26/25 09/14/25 Vee Ayers 08/26/25 09/14/25 Kristian Hodge 05/23/24 documented as of this encounter
--- OUTSIDE RECORDS SUMMARY | 2025-11-05 10:07 | XMS_ITS | Encounter Summary ---
Author Organization [employer] [facility] Address [address] [facility] [address] [place] [address] Care Team Providers Care Neuroscientist Name Role Phone Vivian Portillo [facility] Primary Care Provider [phone] Brandyn Cesar RN Unavailable [phone] Vee Ayers Unavailable Encounter Details Date Type Department Care Team (Late st Contact Info) Description 11/05/2023 Abstract [facility] [address] [place], [place] [phone] Vivian Portillo [facility] [address] [place] [address] Social History Tobacco Use Types Packs/Day Years [...] t he electric, gas, oil or water [employer] threatened to shut off services in your [...] documented as of this encounter Care Teams Neuroscientist Relationship Specialty Start Date End Date Vivian Portillo FNP [address] [place] [phone] PCP - General Family Medicine 05/15/22 Brandyn Cesar RN [address] [place] [phone] Registered Nurse Family Medicine 08/26/25 09/14/25 Vee Ayers 08/26/25 09/14/25 Kristian Hodge 05/23/24 documented as of this encounter
== END 2025-11-05 09:52 | disposition home or self-care (01) ==
PROVIDERS: Visit Provider Surgery
DX: L72.3 Sebaceous cyst (principal)
CPT/HCPCS: 99203

== ENCOUNTER → 2025-11-05 09:25 | Outpatient (BNVA) | payer MEDICAID, SELFPAY | PROVIDERS: Visit Provider Surgery | DX: L72.3 Sebaceous cyst (principal) | CPT/HCPCS: 99202 ==